=== PATIENT | male | born 1950 | race Caucasian/White ===

== ENCOUNTER 2020-03-21 09:57 | Outpatient (REF) | payer BC, SELFPAY ==
--- NOTE | 2020-03-21 | US_ITS ---
EXAMINATION: US THYROID CLINICAL INFORMATION: Goiter. COMPARISON: None TECHNIQUE: Linear transducer varghese-scale and color Doppler examination with attention to the region of the thyroid. FINDINGS: SIZE: Measurements of the thyroid lobes and nodules are given in sagittal, anteroposterior and transverse dimensions respectively. Right Thyroid Lobe: 5.3 x 1.9 x 2.1 cm, volume 10.8 mL. Parenchyma: The gland echotexture is homogeneous. Thyroid vascularity is normal. Left Thyroid Lobe: 4.3 x 1.7 x 1.9 cm, volume 7.4 mL. Parenchyma: The gland echotexture is homogeneous. Thyroid vascularity is normal. Isthmus: 0.5 cm in maximum AP dimension. RIGHT THYROID LOBE: There are 2 nodules seen. 1. Location: Mid. Size: 0.6 x 0.3 x 0.5 cm. Nodule characteristics: Hypoechoic and heterogeneous, smooth margin, no calcification and positive intranodular flow. 2. Location: Mid. Size: 0.3 x 0.2 x 0.2 cm. Nodule characteristics: Hypoechoic and cystic, smooth margin, no calcification and no intranodular flow. ISTHMUS: No nodules. LEFT THYROID LOBE: No nodules. NODES: No lymphadenopathy is seen in the tissue surrounding the thyroid gland. IMPRESSION: Slightly enlarged thyroid gland. Two small right thyroid nodules.
== END 2020-03-21 09:58 | disposition home or self-care (01) ==
LOC: HO.HMGCX 09:57
PROVIDERS: PCP Internal Medicine; Visit Provider Internal Medicine
DX: E04.9 Nontoxic goiter, unspecified (principal)
CPT/HCPCS: 76536

== ENCOUNTER 2020-04-05 10:44 | Outpatient (REF) | payer BC, SELFPAY ==
[2020-04-05 14:50] LABS: Blood Urea Nitrogen 16 mg/dL (9-16); Estimated Glomerular Filt Rate > 60
== END 2020-04-05 10:45 | disposition home or self-care (01) ==
LOC: HO.HMGCLDS 10:44
PROVIDERS: PCP Internal Medicine; Visit Provider Radiology Diagnostic Radiology
DX: I70.613 Atherosclerosis of nonbiological bypass graft(s) of the extremities with intermittent claudication, bilateral legs (principal)
CPT/HCPCS: 82565; 84520

== ENCOUNTER → 2020-04-26 07:36 | Outpatient (BNVA) | payer BC, SELFPAY | PROVIDERS: PCP Internal Medicine; Referring Provider Internal Medicine; Visit Provider Internal Medicine | DX: Z13.89 Encounter for screening for other disorder (principal) ==

== ENCOUNTER 2020-05-08 09:39 | Outpatient (REF) | payer MEDICARE, SELFPAY ==
[2020-05-08 11:24] LABS: Estimated Average Glucose 163 mg/dL; Hemoglobin A1c % 7.3 %
[2020-05-08 11:40] LABS: Alanine Aminotransferase 18 U/L (0-40); Albumin Level 4.4 g/dL (3.5-5.0); Alkaline Phosphatase 53 U/L (39-117); Anion Gap 13 (12-20); Aspartate Amino Transferase 14 U/L (5-37); Bilirubin Total 0.4 mg/dL (0.0-1.0); Blood Urea Nitrogen 13 mg/dL (9-16); Calcium 9.1 mg/dL (8.4-10.2); Carbon Dioxide 24 mmol/L (22-29); Chloride 104 mmol/L (96-108); Estimated Glomerular Filt Rate > 60; Glucose Random 254 mg/dL (60-115); Potassium 4.4 mmol/l (3.3-5.1); Sodium 137 mmol/L (135-145); Total Protein 6.9 g/dL (6.5-8.0)
== END 2020-05-08 09:40 | disposition home or self-care (01) ==
LOC: HO.HMGCX 09:39
PROVIDERS: PCP Internal Medicine; Visit Provider Internal Medicine
DX: E11.65 Type 2 diabetes mellitus with hyperglycemia (principal); E55.9 Vitamin D deficiency, unspecified; E04.9 Nontoxic goiter, unspecified; Z79.4 Long term (current) use of insulin
CPT/HCPCS: 80053; 82306; 83036

== ENCOUNTER 2020-05-19 10:10 | Outpatient (REF) | payer MEDICARE, SELFPAY ==
--- NOTE | 2020-05-19 10:21 | XR_ITS ---
EXAMINATION: XR CHEST CLINICAL INFORMATION: Cough. COMPARISON: Chest 04/16/2015 TECHNIQUE: 2 views of the chest were obtained. FINDINGS: No significant abnormality is noted involving the heart, lungs, mediastinum, bony thorax or soft tissues. XR/XR chest 2V IMPRESSION: Unremarkable chest exam.
== END 2020-05-19 10:11 | disposition home or self-care (01) ==
LOC: HO.HMGCLDS 10:10
PROVIDERS: PCP Internal Medicine; Visit Provider Internal Medicine
DX: R05 Cough (principal)
CPT/HCPCS: 71046

== ENCOUNTER 2020-08-31 20:02 | Emergency (ER) | payer MEDICARE, SELFPAY ==
--- NOTE | ~2020-08-31 | CT_ITS ---
EXAMINATION: CT ABDOMEN AND PELVIS WITH CONTRAST CLINICAL INFORMATION: Left lower quadrant pain. Status post aortofemoral bypass surgery. COMPARISON: CTA of the abdomen pelvis 04/09/2016. TECHNIQUE: Multidetector volumetric images were obtained from the superior aspect of the liver through the pubic symphysis following administration 85 mL of Omnipaque 350 intravenous contrast. Sagittal and coronal reformatted images were obtained on the technologist's workstation. Oral contrast: No This CT examination was performed using dose optimization techniques as appropriate, variously including the following: *Automated exposure control *Adjustment of mA and/or kV according to patient size (this includes techniques or standardized protocols for targeted exams where dose is matched to indication/reason for exam; i.e. extremities or head) *Use of iterative reconstruction technique DLP: 811 mGy-cm FINDINGS: LUNG BASES: The visualized lung bases are unremarkable. LIVER, GALLBLADDER, AND BILIARY TREE: The liver is normal in size, shape, and attenuation. No focal hepatic lesion or biliary ductal dilatation is present. There are a few small calcified gallstones within the gallbladder. No edema around the gallbladder or bile duct dilatation. PANCREAS: Multiple coarse calcifications within the pancreas. Dilatation of the pancreatic duct to diameter of 5 mm. Changes consistent with chronic pancreatitis. The pancreas is atrophic. There is no inflammation. There is no mass. SPLEEN: Unremarkable. ADRENAL GLANDS: Unremarkable. KIDNEYS AND URETERS: Mild hydronephrosis of left renal collecting system and proximal ureter to about the mid pelvis as the ureter crosses the iliopsoas and iliac vessels. The distal ureter is decompressed. No hydronephrosis of the right collecting system. There is no renal or ureteral calculi. Normal enhancement of the cortex of both kidneys. BLADDER: Unremarkable. GASTROINTESTINAL TRACT: The small and large bowel are unremarkable. The appendix is unremarkable. ABDOMINAL WALL: No ventral wall hernia. Midline surgical incision intact. No inflammation or fluid collections of the abdominal wall. LYMPH NODES: Normal. VASCULAR: Status post aortic bifemoral bypass graft. There is enhancement of the graft with no thrombus or occlusion. There is fluid and edema around the graft, greatest on the left, from the level of the aorta through the pelvis. There are multiple air collections in the fluid collection adjacent to the graft anastomosis in the left groin consistent with a abscess, axial image 85/93., Coronal image 40 and sagittal image 48. Measures about 3 cm in diameter. No air is present within the fluid in the right groin. PELVIC VISCERA: Unremarkable. OSSEOUS STRUCTURES: Multilevel degenerative spondylosis spine. CT/CT abdomen pelvis w con IMPRESSION: 1. Status post aorto bilateral femoral bypass graft. Fluid tracks around the aorta and the bypass graft on the left through the pelvis and into the groin. At the anastomotic site in the left groin there are air collections in the fluid consistent with a small abscess the bilateral grafts are patent demonstrating normal enhancement. 2. Mild hydronephrosis of left kidney with point of obstruction of the ureter as it passes around the left iliac graft. 3. Cholelithiasis. 4. Old changes of chronic pancreatitis. No acute abnormality of the pancreas. This critical result was discussed with Dr. Segundo on 08/31/2020, 11:45 PM and it was ascertained that the content and urgency of the report was understood at the time of direct communication.
[2020-08-31 20:34] VITALS: BP 164/78; BP 167/64; PULSE 69; RESP 20; TEMP 36.7; O2SAT 100; O2SAT 99; BMI 33.0
--- NOTE | 2020-08-31 20:47 | ECG_ITS ---
Test Reason : CHEST PAIN Blood Pressure : / mmHG Vent. Rate : 070 BPM Atrial Rate : 070 BPM P-R Int : 142 ms QRS Dur : 086 ms QT Int : 428 ms P-R-T Axes : 073 037 072 degrees QTc Int : 462 ms Sinus rhythm with occasional Premature ventricular complexes Otherwise normal ECG When compared with ECG of 17-APR-2015 11:21, Premature ventricular complexes are now Present Referred By: Generic ED Physician Electronically Signed By:YOU HOLLOWAY MD
--- NOTE | 2020-08-31 21:13 | ED.ABDPAIN ---
HPI - Abdominal Pain General Chief Complaint: Abdominal Pain Stated Complaint: chest pressure abd pain Time Seen by Provider: 08/31/20 21:13 Source: patient Mode of arrival: EMS Limitations: no limitations History of Present Illness HPI narrative: Patient with history of diabetes hypertension peripheral vascular disease status post aorto bi femoral bypass on 08/08 since then complaining of increased weakness , poor oral intake and lower abdominal pains patient on the left side. No fever no shortness of breath no chest pain does feel weak especially more for last 3 days patient also been constipated. No fever no chills no cough MD elicited complaint: abdominal pain Related Data Home Medications Medication Instructions Recorded Confirmed amlodipine 10 mg tablet 10 mg PO DAILY 04/19/20 07/10/20 aspirin 81 mg tablet,delayed 81 mg PO DAILY 04/19/20 07/10/20 release atorvastatin 20 mg tablet 20 mg PO DAILY 04/26/20 07/10/20 Previous Rx's Medication Instructions Recorded insulin syringe-needle U-100 1 mL #100 ea 03/09/20 27 gauge x 1/2 blood-glucose meter,continuous #1 ea 03/22/20 blood-glucose sensor #3 ea 03/22/20 blood-glucose transmitter #1 ea 03/22/20 insulin lispro 100 unit/mL 10 unit SUBCUT TID 30 Days #9 ml 04/11/20 subcutaneous cartridge blood sugar diagnostic #100 ea 04/26/20 blood-glucose meter #1 ea 04/26/20 semaglutide See Rx Instructions SUBCUT QWEEK 04/26/20 30 Days #1.5 ml tadalafil 20 mg tablet 20 mg PO DAILY PRN #30 tab 05/17/20 omeprazole 20 mg capsule,delayed 20 mg PO DAILY #90 cap 05/19/20 release tiotropium bromide 2.5 2 inh INHALATION QAM #4 g 05/19/20 mcg/actuation mist for inhalation olmesartan 40 mg tablet 40 mg PO DAILY #90 tab 06/13/20 tamsulosin 0.4 mg capsule 0.4 mg PO DAILY #90 cap 06/19/20 cilostazol 100 mg tablet 100 mg PO BID #180 tab 07/03/20 nystatin 100,000 unit/gram topical 1 appl TOPICAL BID #60 g 07/10/20 powder olmesartan 40 mg-amlodipine 10 1 tab PO DAILY #30 tab 07/10/20 mg-hydrochlorothiazide 25 mg tablet olmesartan 40 1 tab PO DAILY #30 tab 07/10/20 mg-hydrochlorothiazide 25 mg tablet insulin glargine U-300 conc 300 80 unit SUBCUT DAILY #12 ml 07/14/20 unit/mL (3 mL) subcutaneous pen metformin 1,000 mg tablet 1,000 mg PO BID 90 Days #180 tab 07/17/20 ondansetron HCl 4 mg tablet 4 mg PO Q8H PRN #30 tab 08/30/20 Allergies Allergy/AdvReac Type Severity Reaction Status Date / Time No Known Allergies Allergy Unknown UNKNOWN Verified 08/31/20 20:42 Review of Systems Review of Systems Constitutional : No Weight loss, No Fever, No Chills ENT/Mouth : No sore throat, No Rhinorrhea Eyes: No Eye Pain, No Swelling Cardiovascular : No Chest Pain, no palpitations Respiratory : No Cough, No Sputum, no shortness of breath Gastrointestinal : no Nausea, No Vomiting, No Diarrhea, + abdominal Pain, no black stools Genitourinary : No Dysuria, No Urinary Frequency Musculoskeletal : No joint pain, No Myalgias, No Joint Swelling Skin : No Skin Lesions, No rash Neuro : + Weakness, No Numbness, No Dizziness, No Headache Psych : No Anxiety/Panic, No Depression Heme/Lymph: No Bruising, No Lymphadenopathy Endocrine : No Polyuria, No Polydipsia All other systems reviewed and are negative Physical Exam Vital Signs: Vital Signs: Last Vital Signs Temp 97.8 F 09/01/20 02:23 Pulse 72 09/01/20 02:23 Resp 16 09/01/20 02:23 BP 142/61 H 09/01/20 02:23 Pulse Ox 97 09/01/20 02:23 Body Mass Index 33.0 Appearance: Alert. Oriented X3. No acute distress. Eyes: Pupils equal, round and reactive to light. Pallor+ ENT: Pharynx normal. Neck: Normal inspection. Neck supple. CVS: Normal heart rate and rhythm. Pulses normal. Respiratory: No respiratory distress. Breath sounds normal. Abdomen: Soft mild deep tenderness left lower quadrant no rebound tenderness or guarding Bowel sounds are present, no mass palpable, no CVA tenderness surgical scar healthy Skin: Skin warm and dry. Normal skin color. Normal skin turgor. Extremities: No lower extremity edema. Good peripheral pulses no calf tenderness Neuro: Oriented X 3. No motor deficit. No sensory deficit. MDM - Abdominal Pain MDM Narrative Medical decision making narrative: Patient status post aortoiliac femoral bypass on 08/08/20 since then complaining of not feeling good diffuse lower abdominal pain more on the left side workup showed normal to leukocytes normal lactic acid per CT scan with contrast showed patent iliac graft with fluid collection about 3 cm with multiple air collection adjacent to the graft anastomosis in left groin consistent with an abscess , about 3 cm in diameter. Patient has slight left hydronephrosis also. Case discussed with vascular surgeon Dr. Metzger advised transfer to [facility] for further evaluation as patient has surgery done there. Case discussed with Dr. todd at [facility] accepted the patient for transfer. Patient received IV Vanco 1 g and Zosyn 3.375 g for prophylactic coverage Differential Diagnosis Differential diagnosis: Likely abdominal pain and diverticulitis Medical Records Attestation: I reviewed the patient's medical records. Lab Data Attestation: I reviewed the patient's lab results. Result diagrams: 08/31/20 21:22 08/31/20 21:22 Labs: Lab Results 08/31/20 08/31/20 08/31/20 Range/Units 21:22 21:22 21:22 WBC 8.9 (4.8-10.8) X10*3/uL RBC 3.25 L (4.60-5.80) X10*6/uL Hgb 9.4 L (14.0-18.0) g/dl Hct 27.7 L (42-52) % MCV 85.2 (80-98) fL MCH 28.9 (27.0-33.0) pg MCHC 33.9 (31.0-36.0) g/dl RDW 13.5 (11.0-16.0) % Plt Count 323 (160-400) X10*3/uL MPV 10.6 (9.4-12.4) fL Immature Gran % (Auto) 0.4 (0.0-0.4) % Neut % (Auto) 56.5 (45-73) % Lymph % (Auto) 32.2 (20-40) % Bacon % (Auto) 7.5 (2-11) % Eos % (Auto) 2.6 (0-4) % Baso % (Auto) 0.8 (0-2) % Lymph # (Auto) 2.9 (1.2-4.9) X10*3/uL Bacon # (Auto) 0.7 (0.1-1.2) X10*3/uL Eos # (Auto) 0.2 (0.0-0.4) X10*3/uL Baso # (Auto) 0.1 (0.0-0.2) X10*3/uL Abs Immat Gran (auto) 0.04 H (0.00-0.03) X10*3/uL Absolute Neuts (auto) 5.0 (2.0-8.3) X10*3/uL Absolute Nucleated RBC 0.000 (0.0-0.012) X10*3/uL Nucleated RBC % (auto) 0.0 (0.0-0.2) /100WBC PT 14.1 H (10.8-13.0) SEC INR 1.2 H (0.9-1.1) Sodium (135-145) mmol/L Potassium (3.3-5.1) mmol/L Chloride (96-108) mmol/L Carbon Dioxide (22-29) mmol/L Anion Gap (12-20) BUN (9-16) mg/dL Creatinine (0.5-1.4) mg/dL Estim Creat Clear Calc Estimated GFR Random Glucose (60-115) mg/dL Lactic Acid (0.5-2.0) mmol/L Calcium (8.4-10.2) mg/dL Total Bilirubin (0.0-1.0) mg/dL Direct Bilirubin (0.0-0.5) mg/dL AST (5-37) U/L ALT (0-40) U/L Alkaline Phosphatase (39-117) U/L Troponin I High Sens (<3.5-35.0) ng/L B-Natriuretic Peptide 201 H (<100) pg/mL Total Protein (6.5-8.0) g/dL Albumin (3.5-5.0) g/dL Urine Color Urine Appearance Urine pH (5.0-8.0) Ur Specific Ackerman (1.005-1.025) Urine Protein (NEG-TRACE) MG/DL Urine Glucose (UA) (NEG) MG/DL Urine Ketones (NEG) MG/DL Urine Blood (NEG) Urine Nitrite (NEG) Ur Leukocyte Esterase (NEG) COVID-19 (SERINA) (Negative) COVID-19 Clin Com 08/31/20 08/31/20 08/31/20 Range/Units 21:22 21:22 21:22 WBC (4.8-10.8) X10*3/uL RBC (4.60-5.80) X10*6/uL Hgb (14.0-18.0) g/dl Hct (42-52) % MCV (80-98) fL MCH (27.0-33.0) pg MCHC (31.0-36.0) g/dl RDW (11.0-16.0) % Plt Count (160-400) X10*3/uL MPV (9.4-12.4) fL Immature Gran % (Auto) (0.0-0.4) % Neut % (Auto) (45-73) % Lymph % (Auto) (20-40) % Bacon % (Auto) (2-11) % Eos % (Auto) (0-4) % Baso % (Auto) (0-2) % Lymph # (Auto) (1.2-4.9) X10*3/uL Bacon # (Auto) (0.1-1.2) X10*3/uL Eos # (Auto) (0.0-0.4) X10*3/uL Baso # (Auto) (0.0-0.2) X10*3/uL Abs Immat Gran (auto) (0.00-0.03) X10*3/uL Absolute Neuts (auto) (2.0-8.3) X10*3/uL Absolute Nucleated RBC (0.0-0.012) X10*3/uL Nucleated RBC % (auto) (0.0-0.2) /100WBC PT (10.8-13.0) SEC INR (0.9-1.1) Sodium 133 L (135-145) mmol/L Potassium 4.2 (3.3-5.1) mmol/L Chloride 102 (96-108) mmol/L Carbon Dioxide 22 (22-29) mmol/L Anion Gap 13 (12-20) BUN 10 (9-16) mg/dL Creatinine 0.95 (0.5-1.4) mg/dL Estim Creat Clear Calc 86.2 Estimated GFR > 60 Random Glucose 256 H (60-115) mg/dL Lactic Acid 1.1 (0.5-2.0) mmol/L Calcium 8.5 D (8.4-10.2) mg/dL Total Bilirubin 0.4 (0.0-1.0) mg/dL Direct Bilirubin 0.3 (0.0-0.5) mg/dL AST 13 (5-37) U/L ALT 16 (0-40) U/L Alkaline Phosphatase 83 D (39-117) U/L Troponin I High Sens 30.0 (<3.5-35.0) ng/L B-Natriuretic Peptide (<100) pg/mL Total Protein 6.4 L (6.5-8.0) g/dL Albumin 3.6 (3.5-5.0) g/dL Urine Color Urine Appearance Urine pH (5.0-8.0) Ur Specific Ackerman (1.005-1.025) Urine Protein (NEG-TRACE) MG/DL Urine Glucose (UA) (NEG) MG/DL Urine Ketones (NEG) MG/DL Urine Blood (NEG) Urine Nitrite (NEG) Ur Leukocyte Esterase (NEG) COVID-19 (SERINA) (Negative) COVID-19 Clin Com 08/31/20 08/31/20 08/31/20 Range/Units 21:22 21:59 21:59 WBC (4.8-10.8) X10*3/uL RBC (4.60-5.80) X10*6/uL Hgb (14.0-18.0) g/dl Hct (42-52) % MCV (80-98) fL MCH (27.0-33.0) pg MCHC (31.0-36.0) g/dl RDW (11.0-16.0) % Plt Count (160-400) X10*3/uL MPV (9.4-12.4) fL Immature Gran % (Auto) (0.0-0.4) % Neut % (Auto) (45-73) % Lymph % (Auto) (20-40) % Bacon % (Auto) (2-11) % Eos % (Auto) (0-4) % Baso % (Auto) (0-2) % Lymph # (Auto) (1.2-4.9) X10*3/uL Bacon # (Auto) (0.1-1.2) X10*3/uL Eos # (Auto) (0.0-0.4) X10*3/uL Baso # (Auto) (0.0-0.2) X10*3/uL Abs Immat Gran (auto) (0.00-0.03) X10*3/uL Absolute Neuts (auto) (2.0-8.3) X10*3/uL Absolute Nucleated RBC (0.0-0.012) X10*3/uL Nucleated RBC % (auto) (0.0-0.2) /100WBC PT (10.8-13.0) SEC INR (0.9-1.1) Sodium (135-145) mmol/L Potassium (3.3-5.1) mmol/L Chloride (96-108) mmol/L Carbon Dioxide (22-29) mmol/L Anion Gap (12-20) BUN (9-16) mg/dL Creatinine (0.5-1.4) mg/dL Estim Creat Clear Calc Estimated GFR Random Glucose (60-115) mg/dL Lactic Acid (0.5-2.0) mmol/L Calcium (8.4-10.2) mg/dL Total Bilirubin (0.0-1.0) mg/dL Direct Bilirubin (0.0-0.5) mg/dL AST (5-37) U/L ALT (0-40) U/L Alkaline Phosphatase (39-117) U/L Troponin I High Sens (<3.5-35.0) ng/L B-Natriuretic Peptide (<100) pg/mL Total Protein (6.5-8.0) g/dL Albumin (3.5-5.0) g/dL Urine Color YELLOW Urine Appearance CLEAR Urine pH 7.5 (5.0-8.0) Ur Specific Ackerman 1.020 (1.005-1.025) Urine Protein NEG (NEG-TRACE) MG/DL Urine Glucose (UA) 100 H (NEG) MG/DL Urine Ketones 15 (NEG) MG/DL Urine Blood NEG (NEG) Urine Nitrite NEG (NEG) Ur Leukocyte Esterase NEG (NEG) COVID-19 (SERINA) Negative Cancelled (Negative) COVID-19 Clin Com See Note Cancelled Imaging Data CT scan - abdomen: Attestation: I personally reviewed and interpreted this imaging study as follows: Radiologist's impression: [facility] [place] [id number] Scan ReportSigned Patient: Caesar Flower JMR#: [id number]: 1950cct:[id number]/Sex: 69 / MADM Date: 08/31/20Loc: HO.EDAttending Dr: Ordering Physician: Marcin Bhakta MD Date of Service: 08/31/20 Procedure(s): CT abdomen pelvis w con Accession Number(s): [id number] cc: Marcin Bhakta MD~ EXAMINATION: CT ABDOMEN AND PELVIS WITH CONTRAST CLINICAL INFORMATION: Left lower quadrant pain. Status post aortofemoral bypass surgery. COMPARISON: CTA of the abdomen pelvis 04/09/2016. TECHNIQUE: Multidetector volumetric images were obtained from the superior aspect of the liver through the pubic symphysis following administration 85 mL of Omnipaque 350 intravenous contrast. Sagittal and coronal reformatted images were obtained on the technologist's workstation. Oral contrast: No This CT examination was performed using dose optimization techniques as appropriate, variously including the following: *Automated exposure control *Adjustment of mA and/or kV according to patient size (this includes techniques or standardized protocols for targeted exams where dose is matched to indication/reason for exam; i.e. extremities or head) *Use of iterative reconstruction technique DLP: 811 mGy-cm FINDINGS: LUNG BASES: The visualized lung bases are unremarkable. LIVER, GALLBLADDER, AND BILIARY TREE: The liver is normal in size, shape, and attenuation. No focal hepatic lesion or biliary ductal dilatation is present. There are a few small calcified gallstones within the gallbladder. No edema around the gallbladder or bile duct dilatation. PANCREAS: Multiple coarse calcifications within the pancreas. Dilatation of the pancreatic duct to diameter of 5 mm. Changes consistent with chronic pancreatitis. The pancreas is atrophic. There is no inflammation. There is no mass. SPLEEN: Unremarkable. ADRENAL GLANDS: Unremarkable. KIDNEYS AND URETERS: Mild hydronephrosis of left renal collecting system and proximal ureter to about the mid pelvis as the ureter crosses the iliopsoas and iliac vessels. The distal ureter is decompressed. No hydronephrosis of the right collecting system. There is no renal or ureteral calculi. Normal enhancement of the cortex of both kidneys. BLADDER: Unremarkable. GASTROINTESTINAL TRACT: The small and large bowel are unremarkable. The appendix is unremarkable. ABDOMINAL WALL: No ventral wall hernia. Midline surgical incision intact. No inflammation or fluid collections of the abdominal wall. LYMPH NODES: Normal. VASCULAR: Status post aortic bifemoral bypass graft. There is enhancement of the graft with no thrombus or occlusion. There is fluid and edema around the graft, greatest on the left, from the level of the aorta through the pelvis. There are multiple air collections in the fluid collection adjacent to the graft anastomosis in the left groin consistent with a abscess, axial image 85/93., Coronal image 40 and sagittal image 48. Measures about 3 cm in diameter. No air is present within the fluid in the right groin. PELVIC VISCERA: Unremarkable. OSSEOUS STRUCTURES: Multilevel degenerative spondylosis spine. CT/CT abdomen pelvis w con IMPRESSION: 1. Status post aorto bilateral femoral bypass graft. Fluid tracks around the aorta and the bypass graft on the left through the pelvis and into the groin. At the anastomotic site in the left groin there are air collections in the fluid consistent with a small abscess the bilateral grafts are patent demonstrating normal enhancement. 2. Mild hydronephrosis of left kidney with point of obstruction of the ureter as it passes around the left iliac graft. 3. Cholelithiasis. 4. Old changes of chronic pancreatitis. No acute abnormality of the pancreas. This critical result was discussed with Dr. Segundo on 08/31/2020, 11:45 PM and it was ascertained that the content and urgency of the report was understood at the time of direct communication. Dictated By:AMINTA BYRNE MDSigned By:<Electronically signed by AMINTA BYRNE MD in OV> ECG Data Attestation: I personally reviewed and interpreted this ECG as follows: Interpretation: Normal sinus rhythm heart rate 66 beats per minute normal intervals normal axis no acute ST T wave changes impression normal EKG Discharge Plan Discharge Clinical Impression: Abscess after procedure Abdominal pain Qualifiers: Abdominal location: left lower quadrant Qualified Code(s): R10.32 - Left lower quadrant pain Patient Disposition: Xfer Acute Care Hospital Transfer Details: [place] [address] room 4026 Prescriptions: No Action (DME) insulin syringe-needle U-100 [BD Insulin Syringe] 1 mL 27 gauge x 1/2 syringe See Rx Instructions .ROUTE .MEDSUPPLY Qty: 100 RF: 0 (DME) Dexcom G6 Sensor Device See Rx Instructions .ROUTE .MEDSUPPLY Qty: 3 RF: 11 (DME) Dexcom G6 Transmitter Device See Rx Instructions .ROUTE .MEDSUPPLY Qty: 1 RF: 11 (DME) Dexcom G6 Principal Systems Architect Misc See Rx Instructions .ROUTE .MEDSUPPLY Qty: 1 RF: 0 Humalog U-100 Insulin 100 unit/mL cartridge 10 unit subcut TID 30 Days Qty: 9 RF: 4 amlodipine 10 mg tablet 10 mg PO DAILY RF: 0 aspirin [Adult Aspirin Regimen] 81 mg tablet,delayed release (DR/EC) 81 mg PO DAILY RF: 0 olmesartan 40 mg tablet 40 mg PO DAILY Qty: 90 RF: 3 tamsulosin 0.4 mg capsule 0.4 mg PO DAILY Qty: 90 RF: 3 cilostazol 100 mg tablet 100 mg PO BID Qty: 180 RF: 3 Toujeo Max U-300 SoloStar 300 unit/mL (3 mL) insulin pen 80 unit subcut DAILY Qty: 12 RF: 5 metformin 1,000 mg tablet 1,000 mg PO BID 90 Days Qty: 180 RF: 0 ondansetron HCl [Zofran] 4 mg tablet 4 mg PO Q8H PRN (Reason: nausea and vomiting) Qty: 30 RF: 0 tadalafil [Cialis] 20 mg tablet 20 mg PO DAILY PRN (Reason: sexual activity) Qty: 30 RF: 4 qvostcmfrq-xrlcdfqaq-axwriopdc 40-10-25 mg tablet 1 tab PO DAILY Qty: 30 RF: 5 olmesartan-hydrochlorothiazide 40-25 mg tablet 1 tab PO DAILY Qty: 30 RF: 3 nystatin 100,000 unit/gram powder 1 appl topical BID Qty: 60 RF: 2 omeprazole 20 mg capsule,delayed release(DR/EC) 20 mg PO DAILY Qty: 90 RF: 3 Spiriva Respimat 2.5 mcg/actuation mist 2 inh inhalation QAM Qty: 4 RF: 6 (DME) FreeStyle Lite Strips Strip See Rx Instructions .ROUTE .MEDSUPPLY Qty: 100 RF: 11 (DME) blood-glucose meter [FreeStyle [place] Lite] Kit See Rx Instructions .ROUTE .MEDSUPPLY Qty: 1 RF: 0 Ozempic 0.25 mg or 0.5 mg(2 mg/1.5 mL) pen injector See Rx Instructions subcut QWEEK 30 Days Qty: 1.5 RF: 11 atorvastatin 20 mg tablet 20 mg PO DAILY RF: 0 Interventions: Acute Care Transfer Worksheet (ED) Last Done: 09/01/20 04:09 Discharge Date/Time: 09/01/20 04:10 COUNT INCLUDES THE [facility] Past Medical History Medical History BPH (benign prostatic hyperplasia) Cough Diabetic retinopathy Goiter HLD (hyperlipidemia) HTN (hypertension) PVD (peripheral vascular disease) T2DM (type 2 diabetes mellitus) Vitamin D deficiency Surgical History H/O ujfxw-ockvw-txwaudl bypass Hx of basal cell carcinoma excision Family History Family History Father Diabetes Mother Diabetes Leukemia Skin cancer Alzheimers disease Dementia Social History Social History Alcohol intake: never Smoking Status: Former smoker Packs Per Day: 3 Years Smoked: 20 Advance Directives: No Advance Directives Information Provided: Yes
[2020-08-31 21:40] LABS: MANUAL DIFF FLAG NO
[2020-08-31 21:43] LABS: Basophils Absolute Auto 0.1 X10*3/uL (0.0-0.2); Basophils Percent Auto 0.8 % (0-2); Eosinophils Absolute Auto 0.2 X10*3/uL (0.0-0.4); Eosinophils Percent Auto 2.6 % (0-4); Hematocrit 27.7 % (42-52); Hemoglobin 9.4 g/dl (14.0-18.0); Imm Gran Abs Auto 0.04 X10*3/uL (0.00-0.03); Imm Gran Pct Auto 0.4 % (0.0-0.4); Lymphocytes Absolute Auto 2.9 X10*3/uL (1.2-4.9); Lymphocytes Percent Auto 32.2 % (20-40); Mean Corpuscular HGB Conc 33.9 g/dl (31.0-36.0); Mean Corpuscular Hemoglobin 28.9 pg (27.0-33.0); Mean Corpuscular Volume 85.2 fL (80-98); Mean Platelet Volume 10.6 fL (9.4-12.4); Monocytes Absolute Auto 0.7 X10*3/uL (0.1-1.2); Monocytes Percent Auto 7.5 % (2-11); Neutrophils Percent Auto 56.5 % (45-73); Platelet Count 323 X10*3/uL (160-400); Red Blood Count 3.25 X10*6/uL (4.60-5.80); Red Cell Distribution Width 13.5 % (11.0-16.0); White Blood Count 8.9 X10*3/uL (4.8-10.8)
[2020-08-31] MEDS: 0.9 % Sodium Chloride 1,000 ML 999 ML IVCONT (21:51)
[2020-08-31 21:52] LABS: INTERNATIONAL NORM RATIO 1.2 (0.9-1.1); Prothrombin Time 14.1 SEC (10.8-13.0)
[2020-08-31 22:07] LABS: COVID-19 Test Negative (Negative); IDNOW Serial# 9DD0AD1C
[2020-08-31 22:12] LABS: Glucose Urine UA 100 MG/DL (NEG); Leukocyte Esterase Urine NEG (NEG); Nitrite Urine NEG (NEG); PH 7.5 (5.0-8.0); Urine Blood NEG (NEG); Urine Ketones 15 MG/DL (NEG); Urine Protein NEG (NEG-TRACE)
[2020-08-31 22:14] LABS: Appearance Urine CLEAR; Color Urine YELLOW
[2020-08-31 22:24] LABS: Lactic Acid 1.1 mmol/L (0.5-2.0)
[2020-08-31 22:27] LABS: Anion Gap 13 (12-20); Blood Urea Nitrogen 10 mg/dL (9-16); Calcium 8.5 mg/dL (8.4-10.2); Carbon Dioxide 22 mmol/L (22-29); Chloride 102 mmol/L (96-108); Creatinine Clr Calc Pharmacy 86.2; Estimated Glomerular Filt Rate > 60; Glucose Random 256 mg/dL (60-115); Potassium 4.2 mmol/L (3.3-5.1); Sodium 133 mmol/L (135-145)
[2020-08-31 22:32] LABS: B Type Natriuretic Peptide 201 pg/mL (<100)
[2020-08-31] MEDS: ondansetron HCL 4 MG/2 ML VIAL IVPUSH (22:40)
[2020-08-31] MEDS: Morphine Sulfate 4 MG/ML CARTRIDGE IVPUSH (22:54)
[2020-09-01] MEDS: Piperacillin Sodium/Tazobactam 3.375 GM in 0.9 % Sodium Chloride 50 ML IV (00:23)
[2020-09-01] MEDS: vancomycin HCL 1,000 MG in 0.9 % Sodium Chloride 250 ML 270 MG IV (01:35)
[2020-09-01] MEDS: Morphine Sulfate 4 MG/ML CARTRIDGE IVPUSH (01:46)
[2020-09-01 02:23] VITALS: BP 142/61; PULSE 72; RESP 16; TEMP 36.6; O2SAT 97
[2020-09-01 02:30] LABS: Alanine Aminotransferase 16 U/L (0-40); Albumin Level 3.6 g/dL (3.5-5.0); Alkaline Phosphatase 83 U/L (39-117); Aspartate Amino Transferase 13 U/L (5-37); Bilirubin Direct 0.3 mg/dL (0.0-0.5); Bilirubin Total 0.4 mg/dL (0.0-1.0); Total Protein 6.4 g/dL (6.5-8.0)
== END 2020-09-01 04:10 | disposition short-term general hospital (02) ==
PROVIDERS: Emergency Provider Internal Medicine
DX: T82.898A Other specified complication of vascular prosthetic devices, implants and grafts, initial encounter (principal); L02.214 Cutaneous abscess of groin; R10.32 Left lower quadrant pain; N13.30 Unspecified hydronephrosis; Z20.822 Contact with and (suspected) exposure to COVID-19; E11.9 Type 2 diabetes mellitus without complications; I10 Essential (primary) hypertension; Z79.82 Long term (current) use of aspirin; Z79.02 Long term (current) use of antithrombotics/antiplatelets; Z95.828 Presence of other vascular implants and grafts
CPT/HCPCS: 36415; 74177; 80048; 80076; 81003; 83605; 83880; 84484; 85025; 85610; 87040; 87635; 93005; 96361; 96365; 96368; 96374; 96375; 99285; J2270; J2405; J2543; J3370; Q9967

== ENCOUNTER 2020-09-14 11:18 | Emergency (ER) | payer MEDICARE, SELFPAY ==
--- NOTE | 2020-09-14 | ECG_ITS ---
Test Reason : NAUSEA Blood Pressure : / mmHG Vent. Rate : 082 BPM Atrial Rate : 082 BPM P-R Int : 140 ms QRS Dur : 084 ms QT Int : 378 ms P-R-T Axes : 072 036 068 degrees QTc Int : 441 ms Sinus rhythm with occasional Premature ventricular complexes Low voltage QRS Borderline ECG When compared with ECG of 31-AUG-2020 20:59, No significant change was found Referred By: Generic ED Physician Electronically Signed By:GIANNI MURRELL
--- NOTE | ~2020-09-14 | CT_ITS ---
EXAMINATION: CT ABDOMEN AND PELVIS WITH CONTRAST CLINICAL INFORMATION: Aortobifem bypass surgery at outside facility. Left groin abscess with subsequent drainage at outside facility. Patient notes groin pain and recurrent symptoms. COMPARISON: CT abdomen and pelvis with contrast 08/31/2020. TECHNIQUE: Multidetector volumetric images were obtained from the superior aspect of the liver through the pubic symphysis following administration 85 mL of Omnipaque 350 intravenous contrast. Sagittal and coronal reformatted images were obtained on the technologist's workstation. Oral contrast: No This CT examination was performed using dose optimization techniques as appropriate, variously including the following: *Automated exposure control *Adjustment of mA and/or kV according to patient size (this includes techniques or standardized protocols for targeted exams where dose is matched to indication/reason for exam; i.e. extremities or head) *Use of iterative reconstruction technique DLP: 817 mGy-cm FINDINGS: LUNG BASES: New small bibasilar effusions with bilateral posterior basilar atelectasis. LIVER, GALLBLADDER, AND BILIARY TREE: The liver is normal in size and smooth in contour and uniform in attenuation. Small intrahepatic bile ducts that are visible are stable. No interval intrahepatic ductal dilatation. Gallbladder is again distended to approximately 4.8 cm in caliber. There are at least 2 small dependent gallstones. No gallbladder wall thickening or pericholecystic inflammatory changes. The common duct is unremarkable. PANCREAS: The pancreas is atrophic and shows distention of the duct and multiple coarse parenchymal calcifications suggesting chronic pancreatitis, stable from prior exam. No interval peripancreatic inflammatory changes. SPLEEN: Unremarkable. ADRENAL GLANDS: Unremarkable. KIDNEYS AND URETERS: The kidneys enhance symmetrically. There is no hydronephrosis, hydroureter, or perinephric stranding. There are some renal sinus vascular calcifications. No definite calculi. BLADDER: There is gas at the bladder dome presumably from recent catheterization. Clinically correlate. No bladder calculus or focal wall thickening GASTROINTESTINAL TRACT: There is no bowel obstruction or inflammatory changes in the bowel. The appendix is normal. There is moderate stool throughout the colon. No rectal fecal impaction. No pneumatosis. No ascites. ABDOMINAL WALL: No interval ventral hernia. LYMPH NODES: No interval lymphadenopathy. VASCULAR: There is a patent infrarenal aortobifem graft again with perigraft fluid at the graft bifurcation and along the left side. The left-sided perigraft fluid is decreased from recent exam 08/31/2020. For example, current measurement at level of lumbosacral junction is around 2.8 x 3.8 cm compared with prior measurement 3.5 x 4.7 cm. The perigraft fluid at the left groin is stable. The gas bubbles have markedly decreased with only one gas bubble remaining. There is no new abscess or increasing fluid collection. Perigraft fluid at the right groin and extending into the right subcutaneous space is stable. There is no associated gas bubbles. PELVIC VISCERA: No additional findings. OSSEOUS STRUCTURES: No acute bony abnormality. There is interval thickening of the distal left iliopsoas muscle just lateral to recent drainage which may represent small muscle hematoma. Results called and discussed with Dr. Williamson in the emergency department at [address]/CT abdomen pelvis w con IMPRESSION: 1. Status post infrarenal aortobifemoral graft, patent. Left limb perigraft fluid decreased. Left groin perigraft fluid stable and gas bubbles decreased since prior CT 08/31/2020. Right groin perigraft fluid stable. No right gas bubbles. 2. Mild interval thickening of the distal left iliopsoas muscle just lateral to recent drainage which may represent small muscle hematoma. 3. Gas in urinary bladder without bladder wall thickening, possibly related to recent cauterization. Clinically correlate. Upper tracts unremarkable. 4. Gallstones. No gallbladder wall thickening or pericholecystic inflammatory changes.
--- NOTE | ~2020-09-14 | XR_ITS ---
EXAMINATION: XR CHEST CLINICAL INFORMATION: Shortness of breath. Assess for pneumonia COMPARISON: CT abdomen 08/31/2020, radiographs chest 05/19/2020. TECHNIQUE: Upright AP and lateral views of the chest are obtained. FINDINGS: There is a right-sided PICC with tip at distal superior vena cava. There are small bibasilar effusions better appreciated on lateral view. Patchy airspace opacities present posterior basal region, likely on left. There is also subsegmental atelectasis left lateral base and right posterior medial base. The heart is normal in size. The vascularity is normal. The hilar and mediastinal contours and bony structures are unremarkable. XR/XR chest 2V IMPRESSION: 1. Small patchy airspace opacity left base with bibasilar subsegmental atelectasis and small bibasilar effusions. 2. Heart size normal. Vascularity normal.
[2020-09-14 11:38] VITALS: BP 121/48; BP 189/92; PULSE 74; PULSE 85; RESP 18; TEMP 36.9; O2SAT 96; O2SAT 98; BMI 33.0
--- NOTE | 2020-09-14 12:48 | ED_ITS ---
HPI - General Adult General Chief complaint: Nausea/Vomiting/Diarrhea Stated complaint: NAUSEA AND VOMITING Time Seen by Provider: 09/14/20 12:12 Source: patient and family (, Christina) Mode of arrival: EMS Limitations: no limitations History of Present Illness HPI narrative: 70-year-old male who presents emergency department for evaluation of abdominal pain, chest pain, shortness of breath and weakness. The patient has a complicated past medical history. On August 08, 2020 the patient had a aortic bi-femoral bypass done at [facility]. This surgery was complicated by left groin infection on September 12, 2020 requiring readmission to [facility]. The patient had an abscess near his left groin vascular graft. He had an operation on 09/01/2020 for a washout of the groin and placement vancomycin beads and 2nd surgery on 09/05 for repeat washout remove of the vancomycin beads with the creation of a sartorius muscle flap coverage of the graft. The patient apparently developed kidney injury in response to the antibiotics, these were changed and his kidney function improved. The patient was released from [facility] on 09/12/2020 and is currently getting septa zone 2 g IV push q.8 hours. The patient states that since getting home he has been feeling very weak. The patient has not been able to eat since he has no appetite. He states he has had no bowel movement in 3 days. He has had constant nausea since being home. He states that every time he gets his IV push cefazolin he feels and ?bad ?. He states that during the injection feels like he is going to pass out and he develops a alcohol taste in his mouth. He he states that today at around 10:30 a.m. he developed a brief episode of chest heaviness that lasted seconds to minutes. He points to his sternum when asked to localize the pain. States that he felt short of breath with the chest heaviness. He states that the symptoms have resolved. He states that today he developed emesis x1 or 2 episodes in multiple episodes of dry heaves. He was not feeling well therefore he is brought to the emergency department by ambulance. The patient has been getting morphine 15 mg every 6 hours as needed for his abdominal pain but he states he has not taken this in 2-3 days. Related Data Home Medications Medication Instructions Recorded Confirmed amlodipine 10 mg tablet 10 mg PO DAILY 04/19/20 07/10/20 aspirin 81 mg tablet,delayed 81 mg PO DAILY 04/19/20 07/10/20 release atorvastatin 20 mg tablet 20 mg PO DAILY 04/26/20 07/10/20 Previous Rx's Medication Instructions Recorded insulin syringe-needle U-100 1 mL #100 ea 03/09/20 27 gauge x 1/2 blood-glucose meter,continuous #1 ea 03/22/20 blood-glucose sensor #3 ea 03/22/20 blood-glucose transmitter #1 ea 03/22/20 insulin lispro 100 unit/mL 10 unit SUBCUT TID 30 Days #9 ml 04/11/20 subcutaneous cartridge blood sugar diagnostic #100 ea 04/26/20 blood-glucose meter #1 ea 04/26/20 semaglutide See Rx Instructions SUBCUT QWEEK 04/26/20 30 Days #1.5 ml tadalafil 20 mg tablet 20 mg PO DAILY PRN #30 tab 05/17/20 omeprazole 20 mg capsule,delayed 20 mg PO DAILY #90 cap 05/19/20 release tiotropium bromide 2.5 2 inh INHALATION QAM #4 g 05/19/20 mcg/actuation mist for inhalation olmesartan 40 mg tablet 40 mg PO DAILY #90 tab 06/13/20 tamsulosin 0.4 mg capsule 0.4 mg PO DAILY #90 cap 06/19/20 cilostazol 100 mg tablet 100 mg PO BID #180 tab 07/03/20 nystatin 100,000 unit/gram topical 1 appl TOPICAL BID #60 g 07/10/20 powder olmesartan 40 mg-amlodipine 10 1 tab PO DAILY #30 tab 07/10/20 mg-hydrochlorothiazide 25 mg tablet olmesartan 40 1 tab PO DAILY #30 tab 07/10/20 mg-hydrochlorothiazide 25 mg tablet insulin glargine U-300 conc 300 80 unit SUBCUT DAILY #12 ml 07/14/20 unit/mL (3 mL) subcutaneous pen metformin 1,000 mg tablet 1,000 mg PO BID 90 Days #180 tab 07/17/20 ondansetron HCl 4 mg tablet 4 mg PO Q8H PRN 30 Days #30 tab 09/13/20 hydromorphone [Dilaudid] 2 mg PO Q4-6H PRN #20 tab 09/14/20 ondansetron 8 mg PO Q8H PRN 5 Days #30 ea 09/14/20 Allergies Allergy/AdvReac Type Severity Reaction Status Date / Time No Known Allergies Allergy Unknown UNKNOWN Verified 09/14/20 11:44 Review of Systems Review of Systems: Yes all other systems are reviewed and are negative [facility] Past Medical History Source: unable to obtain Medical History BPH (benign prostatic hyperplasia) Cough Diabetic retinopathy Goiter HLD (hyperlipidemia) HTN (hypertension) PVD (peripheral vascular disease) T2DM (type 2 diabetes mellitus) Vitamin D deficiency Surgical History H/O [id number] bypass Hx of basal cell carcinoma excision Family History Family History Father Diabetes Mother Diabetes Leukemia Skin cancer Alzheimers disease Dementia Social History Social History Alcohol intake: never Smoking Status: Former smoker Packs Per Day: 3 Years Smoked: 20 Advance Directives: No Advance Directives Information Provided: Yes Physical Exam Vital Signs: Vital Signs: Last Vital Signs Temp 98.5 F 09/14/20 11:38 Pulse 72 09/14/20 15:33 Resp 18 09/14/20 15:33 BP 138/57 L 09/14/20 15:33 Pulse Ox 96 09/14/20 15:33 Body Mass Index 33.0 Const: General: cooperative Orientation/consciousness: oriented to person and oriented to place Limitations: no limitations HENMT: Head: Yes normal to inspection, Yes normocephalic and Yes atraumatic Ears: external ears normal General nose exam: Normal external nose present Face and sinus: Yes normal facial exam Mouth: Normal oral and palatal mucosa present Throat: Yes posterior oropharynx normal Eyes: Periorbital: periorbital findings normal Eyelids: Yes eyelids normal Conjunctivae: conjunctivae normal Sclerae: sclerae normal Corneas: corneas normal Pupils: Equal, round and reactive pupils present Direct Ophthalmoscopy: normal light reflex Neck: Neck: Yes full ROM, Yes no lymphadenopathy, Yes no meningeal signs, Yes trachea midline and Yes supple Chest: Chest palpation & inspection: normal inspection of the chest and normal palpation of entire chest wall Resp: Effort & Inspection: normal respiratory effort and able to speak in complete sentences Auscultation: clear to auscultation bilaterally Cardio: Rate: regular rate Rhythm: regular rhythm Heart sounds: S1 normal heart sound present, S2 normal heart sound present and no murmurs GI: Inspection: Yes normal to inspection Palpation (GI): Soft to palpation, Tenderness to palpation present (GI) in the LLQ (Left groin dressing, not removed, tenderness ), in the RLQ (Moderate) and suprapubicly (Moderate), no guarding, not rigid and No hepatosplenomegaly present : General: Yes no CVA tenderness Back/Spine/Pelvis: Back: no CVA tenderness Cervical Spine: normal cervical lordosis Thoracic/Lumbar Spine: thoracic and lumbar spine normal to insp ection Skin: Lesions: no lesions Rashes: no rashes Wounds: no wounds Neuro: General: oriented to person, oriented to place and no meningeal signs Cranial nerves: Yes CN's II-XII intact bilaterally and Yes Equal, round and reactive pupils present Cognition (Neuro): normal cognition Motor exam (neuro): 5/5 motor strength present throughout Extrem: General: Yes normal to inspection and Yes full ROM Psych: Appearance: well kempt Mental Status: mental status grossly normal Speech and movement: Normal speech and movement present Affect: normal affect Attitude: cooperative Thought process: Normal thought process prese nt Thought content: Normal thought content present Course Course Course Narrative: 70-year-old male with a who presents emergency department for evaluation of chest pain, shortness of breath, nausea, vomiting and abdominal pain. The patient had a aortic by femoral bypass done at [facility] on August 08, 2020 complicated by an abscess of the left groin with washout surgery and vancomycin beads placed September 01, 2020 with repeat surgery on September 05, 2020 for repeat washout removal of the vancomycin beads. The patient also had a set aureus muscle flap created a 2nd surgery. Patient is continuing to get cefazolin 2 g IV q.8 hours which he believes is making ill. He presents today with chest pain, shortness of breath, nausea, vomiting and abdominal pain. Physical examination did reveal lower abdominal tenderness. Twelve EKG revealed no acute findings. I did order CBC, CMP, lactic acid, CRP, sedimentation rate, blood cultures x2, troponin, chest x-ray and CT scan of the abdomen pelvis with IV contrast. Patient's nausea was treated with Zofran 4 mg IV. He was also given Dilaudid 1 mg IV for his abdominal pain. He also be treated with normal saline IV x1 L 1651: The patient's laboratory evaluation did reveal anemia with an H&H is 7.9 and 24.6 with normal MCV of 89. Patient has similar anemia in the past with an H&H of 9 and 27 on August 31, 2020. Patient's CRP was not elevated, sedimentation rate was slightly elevated at 33. The patient's high sensitivity troponin was detectable but not elevated and with an unremarkable EKG I do not think the patient's chest pain was secondary to acute coronary syndrome. The CT scan of the patient's abdomen and pelvis did not reveal any obvious cause for the patient's symptoms, the left groin area is significantly improved compared to the previous CT. The patient did get some improvement with the IV Dilaudid. The patient is due for his next dose of cefazolin therefore was ordered to get Benadryl 25 mg IV and then cephazolin 2 g IV. Iron studies are pending. The patient will need to follow-up with his PCP to check these results. The patient will be discharged home and advised to follow-up with his surgical team for further treatment and evaluation. Medical Decision Making Lab Data Result diagrams: 09/14/20 14:25 09/14/20 13:33 Labs: Lab Results 09/14/20 09/14/20 09/14/20 Range/Units 13:33 13:33 14:25 WBC 7.2 (4.8-10.8) X10*3/uL RBC 2.76 L (4.60-5.80) X10*6/uL Hgb 7.9 L (14.0-18.0) g/dl Hct 24.6 L (42-52) % MCV 89.1 (80-98) fL MCH 28.6 (27.0-33.0) pg MCHC 32.1 (31.0-36.0) g/dl RDW 14.6 (11.0-16.0) % Plt Count 217 D (160-400) X10*3/uL MPV 10.2 (9.4-12.4) fL Immature Gran % (Auto) 0.6 H (0.0-0.4) % Neut % (Auto) 70.0 (45-73) % Lymph % (Auto) 18.4 L (20-40) % Bland % (Auto) 5.7 (2-11) % Eos % (Auto) 4.6 H (0-4) % Baso % (Auto) 0.7 (0-2) % Lymph # (Auto) 1.3 (1.2-4.9) X10*3/uL Bland # (Auto) 0.4 (0.1-1.2) X10*3/uL Eos # (Auto) 0.3 (0.0-0.4) X10*3/uL Baso # (Auto) 0.1 (0.0-0.2) X10*3/uL Abs Immat Gran (auto) 0.04 H (0.00-0.03) X10*3/uL Absolute Neuts (auto) 5.1 (2.0-8.3) X10*3/uL Absolute Nucleated RBC 0.000 (0.0-0.012) X10*3/uL Nucleated RBC % (auto) 0.0 (0.0-0.2) /100WBC ESR (0-15) MM/HR PT (10.8-13.0) SEC INR (0.9-1.1) APTT (24.1-38.0) SEC Sodium 139 (135-145) mmol/L Potassium 4.6 (3.3-5.1) mmol/L Chloride 108 (96-108) mmol/L Carbon Dioxide 21 L (22-29) mmol/L Anion Gap 15 (12-20) BUN 13 (9-16) mg/dL Creatinine 1.33 (0.5-1.4) mg/dL Estim Creat Clear Calc 60.7 Estimated GFR 53 Random Glucose 161 H D (60-115) mg/dL Lactic Acid (0.5-2.0) mmol/L Calcium 8.4 (8.4-10.2) mg/dL Iron 27 L (45-160) mcg/dL TIBC 186 L (228-428) mcg/dL % Saturation 15 (15-50) % Unsat Iron Binding 159 ug/dL Total Bilirubin 0.4 (0.0-1.0) mg/dL AST 11 (5-37) U/L ALT < 6 (0-40) U/L Alkaline Phosphatase 81 (39-117) U/L Troponin I High Sens 26.7 (<3.5-35.0) ng/L C-Reactive Protein 0.42 (< or = 0.50) mg/dL Total Protein 5.4 L (6.5-8.0) g/dL Albumin 2.9 L (3.5-5.0) g/dL Lipase < 4 L (8-78) U/L COVID-19 (SERINA) (Negative) COVID-19 Clin Com 09/14/20 09/14/20 09/14/20 Range/Units 14:25 14:25 14:25 WBC (4.8-10.8) X10*3/uL RBC (4.60-5.80) X10*6/uL Hgb (14.0-18.0) g/dl Hct (42-52) % MCV (80-98) fL MCH (27.0-33.0) pg MCHC (31.0-36.0) g/dl RDW (11.0-16.0) % Plt Count (160-400) X10*3/uL MPV (9.4-12.4) fL Immature Gran % (Auto) (0.0-0.4) % Neut % (Auto) (45-73) % Lymph % (Auto) (20-40) % Bland % (Auto) (2-11) % Eos % (Auto) (0-4) % Baso % (Auto) (0-2) % Lymph # (Auto) (1.2-4.9) X10*3/uL Bland # (Auto) (0.1-1.2) X10*3/uL Eos # (Auto) (0.0-0.4) X10*3/uL Baso # (Auto) (0.0-0.2) X10*3/uL Abs Immat Gran (auto) (0.00-0.03) X10*3/uL Absolute Neuts (auto) (2.0-8.3) X10*3/uL Absolute Nucleated RBC (0.0-0.012) X10*3/uL Nucleated RBC % (auto) (0.0-0.2) /100WBC ESR 33 H (0-15) MM/HR PT 14.9 H (10.8-13.0) SEC INR 1.3 H (0.9-1.1) APTT 39.8 H (24.1-38.0) SEC Sodium (135-145) mmol/L Potassium (3.3-5.1) mmol/L Chloride (96-108) mmol/L Carbon Dioxide (22-29) mmol/L Anion Gap (12-20) BUN (9-16) mg/dL Creatinine (0.5-1.4) mg/dL Estim Creat Clear Calc Estimated GFR Random Glucose (60-115) mg/dL Lactic Acid 0.8 (0.5-2.0) mmol/L Calcium (8.4-10.2) mg/dL Iron (45-160) mcg/dL TIBC (228-428) mcg/dL % Saturation (15-50) % Unsat Iron Binding ug/dL Total Bilirubin (0.0-1.0) mg/dL AST (5-37) U/L ALT (0-40) U/L Alkaline Phosphatase (39-117) U/L Troponin I High Sens (<3.5-35.0) ng/L C-Reactive Protein (< or = 0.50) mg/dL Total Protein (6.5-8.0) g/dL Albumin (3.5-5.0) g/dL Lipase (8-78) U/L COVID-19 ([facility]ERINA) (Negative) COVID-19 Clin Com 09/14/20 Range/Units 14:25 WBC (4.8-10.8) X10*3/uL RBC (4.60-5.80) X10*6/uL Hgb (14.0-18.0) g/dl Hct (42-52) % MCV (80-98) fL MCH (27.0-33.0) pg MCHC (31.0-36.0) g/dl RDW (11.0-16.0) % Plt Count (160-400) X10*3/uL MPV (9.4-12.4) fL Immature Gran % (Auto) (0.0-0.4) % Neut % (Auto) (45-73) % Lymph % (Auto) (20-40) % Bland % (Auto) (2-11) % Eos % (Auto) (0-4) % Baso % (Auto) (0-2) % Lymph # (Auto) (1.2-4.9) X10*3/uL Bland # (Auto) (0.1-1.2) X10*3/uL Eos # (Auto) (0.0-0.4) X10*3/uL Baso # (Auto) (0.0-0.2) X10*3/uL Abs Immat Gran (auto) (0.00-0.03) X10*3/uL Absolute Neuts (auto) (2.0-8.3) X10*3/uL Absolute Nucleated RBC (0.0-0.012) X10*3/uL Nucleated RBC % (auto) (0.0-0.2) /100WBC ESR (0-15) MM/HR PT (10.8-13.0) SEC INR (0.9-1.1) APTT (24.1-38.0) SEC Sodium (135-145) mmol/L Potassium (3.3-5.1) mmol/L Chloride (96-108) mmol/L Carbon Dioxide (22-29) mmol/L Anion Gap (12-20) BUN (9-16) mg/dL Creatinine (0.5-1.4) mg/dL Estim Creat Clear Calc Estimated GFR Random Glucose (60-115) mg/dL Lactic Acid (0.5-2.0) mmol/L Calcium (8.4-10.2) mg/dL Iron (45-160) mcg/dL TIBC (228-428) mcg/dL % Saturation (15-50) % Unsat Iron Binding ug/dL Total Bilirubin (0.0-1.0) mg/dL AST (5-37) U/L ALT (0-40) U/L Alkaline Phosphatase (39-117) U/L Troponin I High Sens (<3.5-35.0) ng/L C-Reactive Protein (< or = 0.50) mg/dL Total Protein (6.5-8.0) g/dL Albumin (3.5-5.0) g/dL Lipase (8-78) U/L COVID-19 ([facility]ERINA) Negative (Negative) COVID-19 Clin Com See Note ECG Data Interpretation: 1230: Normal sinus rhythm rate 82, normal WI, QRS and QTC intervals, occasional PVC, no T-wave abnormalities, no ST segment elevation or depression. This is a normal EKG Discharge Plan Discharge Clinical Impression: Abdominal pain Qualifiers: Abdominal location: generalized Qualified Code(s): R10.84 - Generalized abdominal pain Anemia Qualifiers: Anemia type: other cause Chest pain Qualifiers: Chest pain type: unspecified Qualified Code(s): R07.9 - Chest pain, unspecified Patient Disposition: Home, Self-Care Additional Instructions: Your laboratory evaluation revealed that you are anemic with an H&H of 7.9 and 24.6. You had a normal MCV, your iron studies are pending and you will need to check these with your doctor. Your doctor should follow your blood levels to make sure that they do not drop any further and that you do not require any transfusions. Your EKG was unremarkable. Your chest x-ray was unremarkable. We check your inflammatory markers an your CRP was normal in your sedimentation rate was only slightly elevated at 33. The CT scan of your abdomen pelvis with IV contrast revealed improvement of the abscess findings in the left groin area with no other significant changes. At this time I do not have a clear cause for your symptoms but I do not think that you need to be hospitalized. Take Benadryl 25 mg orally and extra-strength Tylenol 2 tabs orally one hour before you take your push does cephazolin to see if this reduces the amount of symptoms that you have. Your should slowly push this medicine over 5-10 minutes. Stop taking your morphine. Take Dilaudid 2 mg pills, 1 pill every 4-6 hours as needed for abdominal pain. This is a narcotic medication and causes sleepiness and constipation. This medication can also be addicting. If your concerned about addiction you can ask your pharmacist for less pills or not get the prescription filled. Take Zofran ODT 8 mg, 1 tablet dissolved in your mouth every 8 hours as needed for nausea and vomiting. Follow-up with your doctor in 2 days. Please return to the emergency department if your symptoms get worse or if you develop any symptoms that are concerning to you. Prescriptions: New hydromorphone [Dilaudid] 2 mg tablet 2 mg PO Q4-6H PRN (Reason: pain) Qty: 20 RF: 0 ondansetron 8 mg film 8 mg PO Q8H PRN (Reason: nausea and vomiting) 5 Days Qty: 30 RF: 0 No Action (DME) insulin syringe-needle U-100 [BD Insulin Syringe] 1 mL 27 gauge x 1/2 syringe See Rx Instructions .ROUTE .MEDSUPPLY Qty: 100 RF: 0 (DME) Dexcom G6 Sensor Device See Rx Instructions .ROUTE .MEDSUPPLY Qty: 3 RF: 11 (DME) Dexcom G6 Transmitter Device See Rx Instructions .ROUTE .MEDSUPPLY Qty: 1 RF: 11 (DME) Dexcom G6 Hair Baler Misc See Rx Instructions .ROUTE .MEDSUPPLY Qty: 1 RF: 0 Humalog U-100 Insulin 100 unit/mL cartridge 10 unit subcut TID 30 Days Qty: 9 RF: 4 amlodipine 10 mg tablet 10 mg PO DAILY RF: 0 aspirin [Adult Aspirin Regimen] 81 mg tablet,delayed release (DR/EC) 81 mg PO DAILY RF: 0 olmesartan 40 mg tablet 40 mg PO DAILY Qty: 90 RF: 3 tamsulosin 0.4 mg capsule 0.4 mg PO DAILY Qty: 90 RF: 3 cilostazol 100 mg tablet 100 mg PO BID Qty: 180 RF: 3 Toujeo Max U-300 SoloStar 300 unit/mL (3 mL) insulin pen 80 unit subcut DAILY Qty: 12 RF: 5 metformin 1,000 mg tablet 1,000 mg PO BID 90 Days Qty: 180 RF: 0 ondansetron HCl [Zofran] 4 mg tablet 4 mg PO Q8H PRN (Reason: nausea and vomiting) 30 Days Qty: 30 RF: 0 tadalafil [Cialis] 20 mg tablet 20 mg PO DAILY PRN (Reason: sexual activity) Qty: 30 RF: 4 rbjebqsnsk-mlztpdbzj-gyalyaftk 40-10-25 mg tablet 1 tab PO DAILY Qty: 30 RF: 5 olmesartan-hydrochlorothiazide 40-25 mg tablet 1 tab PO DAILY Qty: 30 RF: 3 nystatin 100,000 unit/gram powder 1 appl topical BID Qty: 60 RF: 2 omeprazole 20 mg capsule,delayed release(DR/EC) 20 mg PO DAILY Qty: 90 RF: 3 Spiriva Respimat 2.5 mcg/actuation mist 2 inh inhalation QAM Qty: 4 RF: 6 (DME) FreeStyle Lite Strips Strip See Rx Instructions .ROUTE .MEDSUPPLY Qty: 100 RF: 11 (DME) blood-glucose meter [FreeStyle [place] Lite] Kit See Rx Instructions .ROUTE .MEDSUPPLY Qty: 1 RF: 0 Ozempic 0.25 mg or 0.5 mg(2 mg/1.5 mL) pen injector See Rx Instructions subcut QWEEK 30 Days Qty: 1.5 RF: 11 atorvastatin 20 mg tablet 20 mg PO DAILY RF: 0
[2020-09-14] MEDS: ondansetron HCL 4 MG/2 ML VIAL IVPUSH (13:36)
[2020-09-14] MEDS: HYDROmorphone HCl 1 MG/ML SYRINGE IVPUSH ×2 (13:36→17:04)
[2020-09-14] MEDS: 0.9 % Sodium Chloride 1,000 ML 999 ML IV (13:36)
[2020-09-14 14:16] LABS: Alanine Aminotransferase < 6 U/L (0-40); Albumin Level 2.9 g/dL (3.5-5.0); Alkaline Phosphatase 81 U/L (39-117); Anion Gap 15 (12-20); Aspartate Amino Transferase 11 U/L (5-37); Bilirubin Total 0.4 mg/dL (0.0-1.0); Blood Urea Nitrogen 13 mg/dL (9-16); C Reactive Protein 0.42 mg/dL (< or = 0.50); Calcium 8.4 mg/dL (8.4-10.2); Carbon Dioxide 21 mmol/L (22-29); Chloride 108 mmol/L (96-108); Creatinine Clr Calc Pharmacy 60.7; Estimated Glomerular Filt Rate 53; Glucose Random 161 mg/dL (60-115); Lipase < 4 U/L (8-78); Potassium 4.6 mmol/L (3.3-5.1); Sodium 139 mmol/L (135-145); Total Protein 5.4 g/dL (6.5-8.0)
[2020-09-14 14:17] LABS: Troponin-I High Sensitivity 26.7 ng/L (<3.5-35.0)
[2020-09-14 14:33] LABS: MANUAL DIFF FLAG NO
[2020-09-14 14:37] LABS: Basophils Absolute Auto 0.1 X10*3/uL (0.0-0.2); Basophils Percent Auto 0.7 % (0-2); Eosinophils Absolute Auto 0.3 X10*3/uL (0.0-0.4); Eosinophils Percent Auto 4.6 % (0-4); Hematocrit 24.6 % (42-52); Hemoglobin 7.9 g/dl (14.0-18.0); Imm Gran Abs Auto 0.04 X10*3/uL (0.00-0.03); Imm Gran Pct Auto 0.6 % (0.0-0.4); Lymphocytes Absolute Auto 1.3 X10*3/uL (1.2-4.9); Lymphocytes Percent Auto 18.4 % (20-40); Mean Corpuscular HGB Conc 32.1 g/dl (31.0-36.0); Mean Corpuscular Hemoglobin 28.6 pg (27.0-33.0); Mean Corpuscular Volume 89.1 fL (80-98); Mean Platelet Volume 10.2 fL (9.4-12.4); Monocytes Absolute Auto 0.4 X10*3/uL (0.1-1.2); Monocytes Percent Auto 5.7 % (2-11); Neutrophils Absolute Auto 5.1 X10*3/uL (2.0-8.3); Platelet Count 217 X10*3/uL (160-400); Red Blood Count 2.76 X10*6/uL (4.60-5.80); Red Cell Distribution Width 14.6 % (11.0-16.0); White Blood Count 7.2 X10*3/uL (4.8-10.8)
[2020-09-14 14:42] LABS: INTERNATIONAL NORM RATIO 1.3 (0.9-1.1); Prothrombin Time 14.9 SEC (10.8-13.0)
[2020-09-14 14:45] LABS: Partial Thromboplastin Time 39.8 SEC (24.1-38.0)
[2020-09-14 14:51] LABS: Lactic Acid 0.8 mmol/L (0.5-2.0)
[2020-09-14] MEDS: iohexoL 350 MG/ML 100 ML INFUS..BTL IV (14:57)
[2020-09-14 15:12] VITALS: PULSE 16
[2020-09-14 15:22] LABS: Erythrocyte Sedimentation Rate 33 MM/HR (0-15)
[2020-09-14 15:33] VITALS: BP 138/57; PULSE 72; RESP 18; O2SAT 96
[2020-09-14 16:47] LABS: Iron 27 mcg/dL (45-160); Percent Iron Saturation 15 % (15-50); Total Iron Binding Capacity 186 mcg/dL (228-428); Unsaturated Iron Binding 159 ug/dL
[2020-09-14] MEDS: diphenhydrAMINE HCL 50 MG/ML VIAL 25 MG IVPUSH (17:04)
[2020-09-14] MEDS: ceFAZolin Sodium/Dextrose,Iso 2 GM/50 ML PIGGYBACK IV (17:05)
[2020-09-14 17:07] LABS: COVID-19 Test Negative (Negative); IDNOW Serial# 9DD0AD1C
[2020-09-14 17:17] VITALS: BP 155/70; PULSE 75; RESP 18; O2SAT 95
== END 2020-09-14 18:44 | disposition home or self-care (01) ==
PROVIDERS: Emergency Provider Emergency Medicine Emergency Medical Services; PCP Internal Medicine
DX: R07.9 Chest pain, unspecified (principal); R10.84 Generalized abdominal pain; D64.89 Other specified anemias; Z20.822 Contact with and (suspected) exposure to COVID-19; R11.2 Nausea with vomiting, unspecified; E11.9 Type 2 diabetes mellitus without complications; I10 Essential (primary) hypertension; E78.5 Hyperlipidemia, unspecified; Z79.84 Long term (current) use of oral hypoglycemic drugs; Z79.02 Long term (current) use of antithrombotics/antiplatelets; Z79.899 Other long term (current) drug therapy
CPT/HCPCS: 36415; 71046; 74177; 80053; 83540; 83605; 83690; 84484; 85025; 85610; 85652; 85730; 86140; 87040; 87635; 93005; 96361; 96365; 96375; 96376; 99284; J0690; J1170; J1200; J2405; Q9967

== ENCOUNTER 2020-09-16 11:05 | Inpatient (IN) | payer MEDICARE, SELFPAY ==
--- NOTE | ~2020-09-16 | CT_ITS ---
EXAMINATION: CT ABDOMEN AND PELVIS WITH CONTRAST CLINICAL INFORMATION: worsening abdominal pain COMPARISON: 09/14/2020 TECHNIQUE: Multidetector volumetric images were obtained from the superior aspect of the liver through the pubic symphysis following administration 85 mL of Omnipaque 350 intravenous contrast. Sagittal and coronal reformatted images were obtained on the technologist's workstation. Oral contrast: No This CT examination was performed using dose optimization techniques as appropriate, variously including the following: *Automated exposure control *Adjustment of mA and/or kV according to patient size (this includes techniques or standardized protocols for targeted exams where dose is matched to indication/reason for exam; i.e. extremities or head) *Use of iterative reconstruction technique DLP: 992 mGy-cm FINDINGS: LUNG BASES: Small to moderate-sized dependent pleural effusions are present bilaterally with associated dependent atelectasis. These effusions are increased as compared to prior. Heart is normal in size. No focal airspace consolidation. LIVER, GALLBLADDER, AND BILIARY TREE: The liver is normal in size, shape, and attenuation. No focal hepatic lesion. Trace intrahepatic ductal dilatation in the left hepatic lobe is unchanged from prior. No new ductal dilatation. 2 small dependent gallstones are identified. No gallbladder wall thickening or surrounding pericholecystic fluid. Gallbladder is hydropic. PANCREAS: As seen on the prior study, there is pancreatic atrophy with ductal dilatation to 5 mm at the level of the head and body, similar to prior. A dense 1.1 cm calcification is again seen in the pancreatic head. Additional pancreatic calculi are identified, consistent with findings of chronic pancreatitis. No evidence of acute pancreatitis. No focal lesions are identified. SPLEEN: Unremarkable. ADRENAL GLANDS: Unremarkable. KIDNEYS AND URETERS: The kidneys are normal in size, shape, and attenuation. Kidneys enhance symmetrically. No hydronephrosis, hydroureter, or calculi seen. No perinephric stranding. Vascular calcifications are present in the [place]. BLADDER: Relative density of the material and the bladder is likely related to contrast from prior studies. There is small amount of air in the bladder, potentially due to catheterization. GASTROINTESTINAL TRACT: Stomach, small bowel, and colon are normal in caliber. There is moderate amount of stool throughout the colon. No wall thickening. Mild colonic diverticulosis. No intraperitoneal free fluid. ABDOMINAL WALL: Postsurgical changes are evident with a recent ventral abdominal incision and surrounding fat stranding. No hernia. Mild fat stranding within the retroperitoneal soft tissues is similar to prior and consistent with recent surgery. LYMPH NODES: No adenopathy. VASCULAR: Since the prior study, there has been placement of an extra-anatomic aortobifemoral surgical graft. This remains. And without evidence of thrombosis. No aneurysmal dilatation. There is a persistent . Graft fluid collection extending from the level of the bifurcation along the left iliac limb over a distance of 14 cm. This measures up to 4.2 x 2.6 cm in greatest axial cross section, not significant changed from the prior study by my measurement (4.2 x 2.7 cm). No foci of gas are identified in this region. Smaller collections are present in the inguinal regions bilaterally near the site of vascular access. These collections appear unchanged in size from prior with resolution of the previously seen foci of gas. Most notably, there is a superficial collection in the right inguinal region measuring 3.3 x 2.2 cm in greatest cross-section, decreased in size from 3.5 x 2.2 cm on the prior. Marked calcific atherosclerosis is again seen within the solomon distal abdominal aorta and iliac arteries. PELVIC VISCERA: Central gland hypertrophy at the prostate. OSSEOUS STRUCTURES: Mild to moderate multilevel degenerative spondylosis in the lumbar spine. No acute osseous findings. CT/CT abdomen pelvis w con IMPRESSION: 1. No significant change in the postsurgical fluid collection around the left iliac limb of the aortobifemoral graft. No new collections are identified. Smaller collections in the bilateral inguinal regions are unchanged as well with resolution of the previously seen foci of subcutaneous gas. No new fluid collections. 2. No new, acute intra-abdominal or intrapelvic abnormalities. Moderate volume of stool throughout the colon. 3. Small to moderate-sized bilateral pleural effusions are slightly increased in size as compared to prior. 4. Small focus of gas in the bladder, presumably due to recent catheterization and similar to prior. Gas-forming infectious cystitis would be less likely. 5. Cholelithiasis without evidence of acute cholecystitis. 6. Pancreatic atrophy with mild ductal dilatation, unchanged from prior. Numerous pancreatic calcifications are most consistent with chronic pancreatitis.
--- NOTE | ~2020-09-16 | XR_ITS ---
EXAMINATION: XR CHEST CLINICAL INFORMATION: Weakness. COMPARISON: None TECHNIQUE: Frontal view of the chest was obtained. FINDINGS: The lungs are hypoexpanded with increased vascular markings. There is mild haziness in both lung bases. The heart size is normal. A right PICC line is noted with its tip in the mid SVC. No gross bony abnormality. XR/XR chest 1V IMPRESSION: Stable prominent interstitial/vascular markings question mild vascular congestion. Interstitial pneumonitis cannot be excluded. Mild haziness in both lung bases shows minimal improvement.
--- NOTE | 2020-09-16 11:18 | ED_ITS ---
HPI - Abdominal Pain General Chief Complaint: Abdominal Pain Stated Complaint: abd pain, n/v, weakness Time Seen by Provider: 09/16/20 11:18 Source: patient, EMS and old records reviewed Mode of arrival: EMS Limitations: other (poor historian) History of Present Illness HPI narrative: 70 yo male with DM, HTN, HPL. obesity s/p aortic bi fem bypass on 08/08 on [facility] since then has not felt well recurrent nausea, abdominal pain and weakness since initial surgery he has had a left groin abscess requiring repeat surgical intervention as well as Ancef 2G TID and placement of vancomycin beads had repeat washout on 09/05 sent home from [facility] on 09/12 - seen in ED on 09/14 for abdominal pain weakness, chest heaviness, states he cannot tolerate his ancef and it is making him sick, missed his dose this AM, + flatus but reports constipation in ED on 09/14 negative ACS workup as well as CT scan improving from prior MD elicited complaint: abdominal pain and other (weakness) Pertinent past history: other (recent vascular surgery with abscess complication) Onset (ago): week(s) (4 but worse last night after taking his ancef which he thinks is making him sic) Pain Consistency: constant Location: diffuse and chest Severity: moderate Quality: aching Radiation: none Migration to: no migration Exacerbating factors: medication and movement Relieving factors: nothing Context: recent antibiotic use and recent surgery/procedure Associated symptoms: nausea and constipation Related Data Home Medications Medication Instructions Recorded Confirmed amlodipine 10 mg tablet 10 mg PO DAILY 04/19/20 07/10/20 aspirin 81 mg tablet,delayed 81 mg PO DAILY 04/19/20 07/10/20 release atorvastatin 20 mg tablet 20 mg PO DAILY 04/26/20 07/10/20 Previous Rx's Medication Instructions Recorded insulin syringe-needle U-100 1 mL #100 ea 03/09/20 27 gauge x 1/2 blood-glucose meter,continuous #1 ea 03/22/20 blood-glucose sensor #3 ea 03/22/20 blood-glucose transmitter #1 ea 03/22/20 insulin lispro 100 unit/mL 10 unit SUBCUT TID 30 Days #9 ml 04/11/20 subcutaneous cartridge blood sugar diagnostic #100 ea 04/26/20 blood-glucose meter #1 ea 04/26/20 semaglutide See Rx Instructions SUBCUT QWEEK 04/26/20 30 Days #1.5 ml tadalafil 20 mg tablet 20 mg PO DAILY PRN #30 tab 05/17/20 omeprazole 20 mg capsule,delayed 20 mg PO DAILY #90 cap 05/19/20 release tiotropium bromide 2.5 2 inh INHALATION QAM #4 g 05/19/20 mcg/actuation mist for inhalation olmesartan 40 mg tablet 40 mg PO DAILY #90 tab 06/13/20 tamsulosin 0.4 mg capsule 0.4 mg PO DAILY #90 cap 06/19/20 cilostazol 100 mg tablet 100 mg PO BID #180 tab 07/03/20 nystatin 100,000 unit/gram topical 1 appl TOPICAL BID #60 g 07/10/20 powder olmesartan 40 mg-amlodipine 10 1 tab PO DAILY #30 tab 07/10/20 mg-hydrochlorothiazide 25 mg tablet olmesartan 40 1 tab PO DAILY #30 tab 07/10/20 mg-hydrochlorothiazide 25 mg tablet insulin glargine U-300 conc 300 80 unit SUBCUT DAILY #12 ml 07/14/20 unit/mL (3 mL) subcutaneous pen metformin 1,000 mg tablet 1,000 mg PO BID 90 Days #180 tab 07/17/20 ondansetron HCl 4 mg tablet 4 mg PO Q8H PRN 30 Days #30 tab 09/13/20 hydromorphone [Dilaudid] 2 mg PO Q4-6H PRN #20 tab 09/14/20 ondansetron 8 mg PO Q8H PRN 5 Days #30 ea 09/14/20 Allergies Allergy/AdvReac Type Severity Reaction Status Date / Time No Known Allergies Allergy Unknown UNKNOWN Verified 09/14/20 11:44 Review of Systems Review of Systems Constitutional : No Weight loss, No Fever, No Chills ENT/Mouth : No sore throat, No Rhinorrhea Eyes: No Swelling, No Redness Cardiovascular : pos Chest Pain, No SOB, NoEdema Respiratory : No Cough, No Sputum, No Wheezing Gastrointestinal : Positive Nausea, no Vomiting, no Diarrhea, positive abdominal Pain, No Hematochezia, No Melena, pos constipation Genitourinary : No Dysuria, No Urinary Frequency, No Hematuria, No Urgency Musculoskeletal : No joint pain, No Myalgias, No Joint Swelling Skin : No Skin Lesions, No rash Neuro : pos Weakness, No Numbness, No Dizziness, No Headache Psych : No Anxiety/Panic, No Depression Heme/Lymph: No Bruising, No Lymphadenopathy Endocrine : No Polyuria, No Polydipsia All other systems reviewed and are negative. Physical Exam Vital Signs: Vital Signs: Last Vital Signs Temp 98.3 F 09/16/20 12:51 Pulse 73 09/16/20 12:51 Resp 15 09/16/20 12:51 BP 164/80 H 09/16/20 12:51 Pulse Ox 95 09/16/20 12:51 Body Mass Index 32.3 Appearance: Alert. Oriented X3. No acute distress. Eyes: Pupils equal, round and reactive to light. ENT: Pharynx normal. Neck: Normal inspection. Neck supple. CVS: Normal heart rate and rhythm. Pulses normal. Respiratory: No respiratory distress. Breath sounds normal. Abdomen: Soft and mild diffuse ttp incisions c/d/i, groin L no erythema/drainage/no palpable mass dressing c/d/i Skin: Skin warm and dry. Normal skin color. Normal skin turgor. Extremities: pos2+ pitting lower extremity edema. No calf ttp Neuro: Oriented X 3. No motor deficit. No sensory deficit. Course Course Course Narrative: no real change in CT scan but still nauseated and given edema/effusions inability to tolerate ancef or walk at home will admit for nausea patient is very nauseated repeat reglan ordered IV lasix ordered given effusions and LE edema will attempt to admit patient MDM - Abdominal Pain MDM Narrative Medical decision making narrative: 70 yo male with recent aorto fem bypass resulting in L groin abscess requiring PICC line and IV antibiotics/vancomycin beads comes in today with c/o persistent pain, nausea, weakness, chest pain for (long time) thinks his ancef is making him sick his is giving it to him 2G over 10 to 20 minutes which he thinks is too fast at this time will obtain labs, cultures, give him his ancef with benadryl, IV dilaudid for pain, CT scan for recurrence of infection, dispo per results and findings. Lab Data Result diagrams: 09/16/20 11:32 09/16/20 11:32 Labs: Lab Results 09/16/20 09/16/20 09/16/20 Range/Units 11:32 11:32 11:32 WBC 7.5 (4.8-10.8) X10*3/uL RBC 2.77 L (4.60-5.80) X10*6/uL Hgb 7.8 L (14.0-18.0) g/dl Hct 24.6 L (42-52) % MCV 88.8 (80-98) fL MCH 28.2 (27.0-33.0) pg MCHC 31.7 (31.0-36.0) g/dl RDW 14.9 (11.0-16.0) % Plt Count 244 (160-400) X10*3/uL MPV 9.9 (9.4-12.4) fL Immature Gran % (Auto) 0.4 (0.0-0.4) % Neut % (Auto) 62.4 (45-73) % Lymph % (Auto) 22.7 (20-40) % [place] % (Auto) 7.3 (2-11) % Eos % (Auto) 6.5 H (0-4) % Baso % (Auto) 0.7 (0-2) % Lymph # (Auto) 1.7 (1.2-4.9) X10*3/uL [place] # (Auto) 0.6 (0.1-1.2) X10*3/uL Eos # (Auto) 0.5 H (0.0-0.4) X10*3/uL Baso # (Auto) 0.1 (0.0-0.2) X10*3/uL Abs Immat Gran (auto) 0.03 (0.00-0.03) X10*3/uL Absolute Neuts (auto) 4.7 (2.0-8.3) X10*3/uL Absolute Nucleated RBC 0.000 (0.0-0.012) X10*3/uL Nucleated RBC % (auto) 0.0 (0.0-0.2) /100WBC PT 15.6 H (10.8-13.0) SEC INR 1.3 H (0.9-1.1) APTT 39.5 H (24.1-38.0) SEC Sodium 140 (135-145) mmol/L Potassium 3.9 (3.3-5.1) mmol/L Chloride 106 (96-108) mmol/L Carbon Dioxide 24 (22-29) mmol/L Anion Gap 14 (12-20) BUN 10 (9-16) mg/dL Creatinine 1.24 (0.5-1.4) mg/dL Estim Creat Clear Calc 64.4 Estimated GFR 57 Random Glucose 110 (60-115) mg/dL Lactic Acid (0.5-2.0) mmol/L Calcium 8.4 (8.4-10.2) mg/dL Magnesium 1.8 (1.6-2.6) mg/dL Total Bilirubin 0.4 (0.0-1.0) mg/dL Direct Bilirubin 0.2 (0.0-0.5) mg/dL AST 12 (5-37) U/L ALT < 6 (0-40) U/L Alkaline Phosphatase 75 (39-117) U/L Troponin I High Sens (<3.5-35.0) ng/L Total Protein 5.6 L (6.5-8.0) g/dL Albumin 3.0 L (3.5-5.0) g/dL Lipase < 4 L (8-78) U/L 09/16/20 09/16/20 Range/Units 11:32 11:32 WBC (4.8-10.8) X10*3/uL RBC (4.60-5.80) X10*6/uL Hgb (14.0-18.0) g/dl Hct (42-52) % MCV (80-98) fL MCH (27.0-33.0) pg MCHC (31.0-36.0) g/dl RDW (11.0-16.0) % Plt Count (160-400) X10*3/uL MPV (9.4-12.4) fL Immature Gran % (Auto) (0.0-0.4) % Neut % (Auto) (45-73) % Lymph % (Auto) (20-40) % [place] % (Auto) (2-11) % Eos % (Auto) (0-4) % Baso % (Auto) (0-2) % Lymph # (Auto) (1.2-4.9) X10*3/uL [place] # (Auto) (0.1-1.2) X10*3/uL Eos # (Auto) (0.0-0.4) X10*3/uL Baso # (Auto) (0.0-0.2) X10*3/uL Abs Immat Gran (auto) (0.00-0.03) X10*3/uL Absolute Neuts (auto) (2.0-8.3) X10*3/uL Absolute Nucleated RBC (0.0-0.012) X10*3/uL Nucleated RBC % (auto) (0.0-0.2) /100WBC PT (10.8-13.0) SEC INR (0.9-1.1) APTT (24.1-38.0) SEC Sodium (135-145) mmol/L Potassium (3.3-5.1) mmol/L Chloride (96-108) mmol/L Carbon Dioxide (22-29) mmol/L Anion Gap (12-20) BUN (9-16) mg/dL Creatinine (0.5-1.4) mg/dL Estim Creat Clear Calc Estimated GFR Random Glucose (60-115) mg/dL Lactic Acid 0.8 (0.5-2.0) mmol/L Calcium (8.4-10.2) mg/dL Magnesium (1.6-2.6) mg/dL Total Bilirubin (0.0-1.0) mg/dL Direct Bilirubin (0.0-0.5) mg/dL AST (5-37) U/L ALT (0-40) U/L Alkaline Phosphatase (39-117) U/L Troponin I High Sens 33.2 (<3.5-35.0) ng/L Total Protein (6.5-8.0) g/dL Albumin (3.5-5.0) g/dL Lipase (8-78) U/L ECG Data Attestation: I personally reviewed and interpreted this ECG as follows: ECG interpretation date: 09/16/20 ECG interpretation time: 11:55 Interpretation: Rate: 80 Rhythm: NSR with occ PVCs [place]: normal Normal P waves. Normal DANI. Normal QRS complex. ST T wave : normal, no PAOLA qTC: normal prior studies: no acute ischemia The study has been interpreted contemporaneously by me. . Discharge Plan Discharge Clinical Impression: Abdominal pain, Weakness, Vomiting, Pleural effusion Patient Disposition: Admitted As Inpatient Prescriptions: No Action (DME) insulin syringe-needle U-100 [BD Insulin Syringe] 1 mL 27 gauge x 1/2 syringe See Rx Instructions .ROUTE .MEDSUPPLY Qty: 100 RF: 0 (DME) Dexcom G6 Sensor Device See Rx Instructions .ROUTE .MEDSUPPLY Qty: 3 RF: 11 (DME) Dexcom G6 Transmitter Device See Rx Instructions .ROUTE .MEDSUPPLY Qty: 1 RF: 11 (DME) Dexcom G6 Precision Devices Inspector/Tester Misc See Rx Instructions .ROUTE .MEDSUPPLY Qty: 1 RF: 0 Humalog U-100 Insulin 100 unit/mL cartridge 10 unit subcut TID 30 Days Qty: 9 RF: 4 amlodipine 10 mg tablet 10 mg PO DAILY RF: 0 aspirin [Adult Aspirin Regimen] 81 mg tablet,delayed release (DR/EC) 81 mg PO DAILY RF: 0 olmesartan 40 mg tablet 40 mg PO DAILY Qty: 90 RF: 3 tamsulosin 0.4 mg capsule 0.4 mg PO DAILY Qty: 90 RF: 3 cilostazol 100 mg tablet 100 mg PO BID Qty: 180 RF: 3 Toujeo Max U-300 SoloStar 300 unit/mL (3 mL) insulin pen 80 unit subcut DAILY Qty: 12 RF: 5 metformin 1,000 mg tablet 1,000 mg PO BID 90 Days Qty: 180 RF: 0 ondansetron HCl [Zofran] 4 mg tablet 4 mg PO Q8H PRN (Reason: nausea and vomiting) 30 Days Qty: 30 RF: 0 hydromorphone [Dilaudid] 2 mg tablet 2 mg PO Q4-6H PRN (Reason: pain) Qty: 20 RF: 0 ondansetron 8 mg film 8 mg PO Q8H PRN (Reason: nausea and vomiting) 5 Days Qty: 30 RF: 0 tadalafil [Cialis] 20 mg tablet 20 mg PO DAILY PRN (Reason: sexual activity) Qty: 30 RF: 4 dzaqvsqkhb-fjdhamdfb-cynxupaxo 40-10-25 mg tablet 1 tab PO DAILY Qty: 30 RF: 5 olmesartan-hydrochlorothiazide 40-25 mg tablet 1 tab PO DAILY Qty: 30 RF: 3 nystatin 100,000 unit/gram powder 1 appl topical BID Qty: 60 RF: 2 omeprazole 20 mg capsule,delayed release(DR/EC) 20 mg PO DAILY Qty: 90 RF: 3 Spiriva Respimat 2.5 mcg/actuation mist 2 inh inhalation QAM Qty: 4 RF: 6 (DME) FreeStyle Lite Strips Strip See Rx Instructions .ROUTE .MEDSUPPLY Qty: 100 RF: 11 (DME) blood-glucose meter [FreeStyle [place] Lite] Kit See Rx Instructions .ROUTE .MEDSUPPLY Qty: 1 RF: 0 Ozempic 0.25 mg or 0.5 mg(2 mg/1.5 mL) pen injector See Rx Instructions subcut QWEEK 30 Days Qty: 1.5 RF: 11 atorvastatin 20 mg tablet 20 mg PO DAILY RF: 0 PMFSH Past Medical History Medical History BPH (benign prostatic hyperplasia) Cough Diabetic retinopathy Goiter HLD (hyperlipidemia) HTN (hypertension) PVD (peripheral vascular disease) T2DM (type 2 diabetes mellitus) Vitamin D deficiency Surgical History H/O gjohz-hdtki-pahnjga bypass Hx of basal cell carcinoma excision Family History Family History Father Diabetes Mother Diabetes Leukemia Skin cancer Alzheimers disease Dementia Social History Social History Alcohol intake: never Smoking Status: Former smoker Packs Per Day: 3 Years Smoked: 20 Advance Directives: No Advance Directives Information Provided: Yes
[2020-09-16 11:22] VITALS: BP 107/43; PULSE 82; RESP 18; TEMP 36.6; O2SAT 96; BMI 32.3
--- NOTE | 2020-09-16 11:23 | ECG_ITS ---
Test Reason : EPIGASTRIC PAIN Blood Pressure : / mmHG Vent. Rate : 080 BPM Atrial Rate : 080 BPM P-R Int : 140 ms QRS Dur : 082 ms QT Int : 404 ms P-R-T Axes : 070 040 063 degrees QTc Int : 465 ms Sinus rhythm with frequent Premature ventricular complexes Low voltage QRS Borderline ECG When compared with ECG of 14-SEP-2020 12:30, No significant change was found Referred By: Lexis Segura Electronically Signed By:Bert De Los Santos
[2020-09-16 11:41] LABS: MANUAL DIFF FLAG NO
[2020-09-16 11:43] LABS: Basophils Absolute Auto 0.1 X10*3/uL (0.0-0.2); Basophils Percent Auto 0.7 % (0-2); Eosinophils Absolute Auto 0.5 X10*3/uL (0.0-0.4); Eosinophils Percent Auto 6.5 % (0-4); Hematocrit 24.6 % (42-52); Hemoglobin 7.8 g/dl (14.0-18.0); Imm Gran Abs Auto 0.03 X10*3/uL (0.00-0.03); Imm Gran Pct Auto 0.4 % (0.0-0.4); Lymphocytes Absolute Auto 1.7 X10*3/uL (1.2-4.9); Lymphocytes Percent Auto 22.7 % (20-40); Mean Corpuscular HGB Conc 31.7 g/dl (31.0-36.0); Mean Corpuscular Hemoglobin 28.2 pg (27.0-33.0); Mean Corpuscular Volume 88.8 fL (80-98); Mean Platelet Volume 9.9 fL (9.4-12.4); Monocytes Absolute Auto 0.6 X10*3/uL (0.1-1.2); Monocytes Percent Auto 7.3 % (2-11); Neutrophils Absolute Auto 4.7 X10*3/uL (2.0-8.3); Neutrophils Percent Auto 62.4 % (45-73); Platelet Count 244 X10*3/uL (160-400); Red Blood Count 2.77 X10*6/uL (4.60-5.80); Red Cell Distribution Width 14.9 % (11.0-16.0); White Blood Count 7.5 X10*3/uL (4.8-10.8)
[2020-09-16] MEDS: ondansetron HCL 4 MG/2 ML VIAL IVPUSH ×2 (11:47→20:27)
[2020-09-16] MEDS: 0.9 % Sodium Chloride 500 ML IV (11:47)
[2020-09-16] MEDS: diphenhydrAMINE HCL 50 MG/ML VIAL 25 MG IVPUSH ×2 (11:47→18:21)
[2020-09-16] MEDS: HYDROmorphone HCl 1 MG/ML SYRINGE IVPUSH ×2 (11:47→14:32)
[2020-09-16 11:52] LABS: INTERNATIONAL NORM RATIO 1.3 (0.9-1.1); Prothrombin Time 15.6 SEC (10.8-13.0)
[2020-09-16 11:56] LABS: Partial Thromboplastin Time 39.5 SEC (24.1-38.0)
[2020-09-16 12:12] LABS: Lactic Acid 0.8 mmol/L (0.5-2.0)
[2020-09-16 12:21] LABS: Troponin-I High Sensitivity 33.2 ng/L (<3.5-35.0)
[2020-09-16 12:27] LABS: Alanine Aminotransferase < 6 U/L (0-40); Alkaline Phosphatase 75 U/L (39-117); Anion Gap 14 (12-20); Aspartate Amino Transferase 12 U/L (5-37); Bilirubin Direct 0.2 mg/dL (0.0-0.5); Bilirubin Total 0.4 mg/dL (0.0-1.0); Blood Urea Nitrogen 10 mg/dL (9-16); Calcium 8.4 mg/dL (8.4-10.2); Carbon Dioxide 24 mmol/L (22-29); Chloride 106 mmol/L (96-108); Creatinine Clr Calc Pharmacy 64.4; Estimated Glomerular Filt Rate 57; Glucose Random 110 mg/dL (60-115); Lipase < 4 U/L (8-78); Magnesium 1.8 mg/dL (1.6-2.6); Potassium 3.9 mmol/L (3.3-5.1); Sodium 140 mmol/L (135-145); Total Protein 5.6 g/dL (6.5-8.0)
[2020-09-16 12:51] VITALS: BP 164/80; PULSE 73; RESP 15; TEMP 36.8; O2SAT 95
[2020-09-16] MEDS: iohexoL 350 MG/ML 100 ML INFUS..BTL 85 ML IV (13:20)
[2020-09-16] MEDS: Furosemide 40 MG/4 ML VIAL IVPUSH (15:17)
[2020-09-16] MEDS: Metoclopramide HCl 10 MG/2 ML VIAL 5 MG IVPUSH (15:17)
[2020-09-16 15:30] LABS: B Type Natriuretic Peptide 1092 pg/mL (<100)
[2020-09-16 15:49] VITALS: BP 162/77; PULSE 76; RESP 18; TEMP 36.7; O2SAT 94
[2020-09-16 16:01] LABS: Glucose Urine UA NEG (NEG); Leukocyte Esterase Urine NEG (NEG); Nitrite Urine NEG (NEG); Specific Gravity - Urine 1.015 (1.005-1.025); Urine Blood NEG (NEG); Urine Ketones NEG (NEG); Urine Protein NEG (NEG-TRACE)
[2020-09-16 16:02] LABS: Appearance Urine CLEAR; Color Urine YELLOW
[2020-09-16 16:12] LABS: COVID-19 Test Negative (Negative)
[2020-09-16 18:05] VITALS: BP 145/74; PULSE 78; RESP 16; TEMP 36.7; O2SAT 95
[2020-09-16] MEDS: Docusate Sodium 100 MG CAPSULE 200 MG PO (18:22)
[2020-09-16] MEDS: Enoxaparin Sodium 40 MG/0.4 ML SYRINGE SUBCUT (18:22)
--- NOTE | 2020-09-16 19:22 | HP_ITS ---
DATE OF SERVICE: 09/16/2020 CHIEF COMPLAINT: Abdominal pain, nausea, vomiting, and generalized weakness. HISTORY OF PRESENTING ILLNESS: This is a 70-year-old gentleman with past medical history significant for type 2 diabetes mellitus, on insulin; hypertension; hyperlipidemia; and history of hepatitis C. The patient recently underwent aortic bifemoral bypass surgery on August 08, at [facility] and was discharged from their facility on August 13. After being at home, the patient generally feeling weak and on August 31, presented to [facility] due to abdominal pain. A CAT scan of the abdomen and pelvis was obtained in ER that showed fluid tracks around the aorta and the bypass graft on the left leg through the pelvis and into the groin,there was air collection in the fluid consistent with small abscess. The bilateral grafts were patent. There was also mild hydronephrosis of the left kidney with point of obstruction of the ureter as it passes around the left iliac graft. With these abnormal results, the patient was sent back to [facility], where he was admitted from August 31 to September 12. and underwent repeat surgical intervention with placement of vancomycin beads,and was started on IV antibiotics. and subsequently discharged home on PICC line for 6 weeks of IV Ancef. patient returned to [facility] on September 14, with similar complaints of nausea and vomiting after receiving Ancef shots. He also complained of poor appetite and significant nausea, worse soon after receiving the IV push cefazolin. A repeat CAT scan of the abdomen was showing some improvement in the fluid collection, since his CAT scan was better and there was no fever, no chills and no other reason for admission, the patient was discharged home on Dilaudid for abdominal pain as well as Zofran. However, the patient returned back to [facility] today with persistent symptoms of generalized weakness, decreased p.o. intake, persistent nausea, vomiting, constipation, worse feeling after receiving IV Ancef shot that has been given for total 6 weeks, 2 g t.i.d. The patient's repeat CAT scan today once again does not show any worsening of fluid collection, and there is not significant change as compared to the CAT scan findings 2 days ago, but the patient's laboratory data today revealed that the patient's BNP significantly elevated at 1092. His albumin is low at 3 with a total protein of 5.6. His hematocrit is low, but stable around 24.6. There is no leukocytosis. Platelet counts are stable. EKG shows no acute ischemic changes. The patient denies any prior history of coronary artery disease or congestive heart failure. The patient denies any fever, chills, or shortness of breath. He denies any cough, but since the patient is generally weak with worsening BNP, poor by mouth intake and low albumin, he is being admitted to [facility] for continued monitoring and treatment. PAST MEDICAL HISTORY: Significant for, 1. BPH. 2. Type 2 diabetes mellitus. 3. Hepatitis C. 4. Hyperlipidemia. 5. Hypertension. 6. Hypogonadism. 7. Obesity. 8. History of right shoulder pain. 9. History of knee arthroscopy. MEDICATIONS: Needs to be reconciled, but he takes amlodipine 10 mg daily, aspirin 81 mg daily, Lipitor 20 mg daily, cilostazol 100 mg b.i.d., Dilaudid 2 mg every 4 to 6 hours as needed, insulin Lantus 80 units subcutaneously daily, insulin lispro 10 units t.i.d., metformin 1000 b.i.d., nystatin topical powder twice daily, olmesartan 40 mg daily, hydrochlorothiazide 25 mg daily, omeprazole 20 daily, Zofran 8 mg every 8 hours as needed, semaglutide weekly, Flomax 0.4 mg daily, and tiotropium bromide 2 inhalation q.a.m. SOCIAL HISTORY: The patient is , lives with his . Denies history of smoking or alcohol abuse. He is a retired [employer]. Ambulates with no assistive device. FAMILY HISTORY: Parents are . There is no family history of premature coronary artery disease. REVIEW OF SYSTEMS: LICENSED STAFF MFT: The patient denies any headache or dizziness. CVS: He denies any chest pain or palpitation. GENERAL: He complains of generalized weakness, has not been ambulating, only out of bed to chair. GI: Complains of nausea, vomiting, and constipation. : No urinary symptoms of urgency or frequency. Rest all other systems are reviewed and are negative. ALLERGIES: THE PATIENT HAS NO KNOWN DRUG ALLERGIES. PHYSICAL EXAMINATION: GENERAL: The patient is resting comfortably, does not appear to be in acute distress. VITAL SIGNS: BP 162/77, pulse of 76, respiratory rate 18, temperature of 98.1, and O2 saturation 94% on room air. HEENT: Pupils equal, round, and reactive to light and accommodation. NECK: Supple. No JVD. LUNGS: Clear to auscultation bilaterally with diminished breath sound at bases. There are no crackles, wheeze, or rhonchi. HEART: Regular rate rhythm. ABDOMEN: Obese and soft. Mid abdominal incision is well healed. No tenderness to palpation. Bowel sounds are audible. No guarding. No rigidity. EXTREMITIES: Bilateral pitting edema. Color pale. NEUROLOGIC: Nonfocal. Good peripheral pulses. LABORATORY DATA: EKG showed sinus rhythm with PVCs, low-voltage QRS, no acute ischemic changes. BNP 1092. WBC 7.5; hematocrit 24.6, hematocrit on August 31 was 27.7; platelet count of 244. Sodium 140, potassium 3.9, creatinine 1.24, BUN of 10. Iron 27, iron saturation 15, total iron-binding capacity 186. Normal LFTs. Troponin 33.2. Albumin 3. Lipase of less than 4. CT abdomen and pelvis showed no significant change in postsurgical fluid collection around the left iliac limb of the aortobifemoral graft. No new collections are identified. Smaller collections in the bilateral inguinal regions are unchanged as well with resolution of the previously seen foci of subcutaneous gas. There is no new fluid collection noted. There are no acute new intraabdominal or intrapelvic abnormalities. Moderate stool throughout the colon. Small to moderate size bilateral pleural effusion that is new compared to recent study couple days ago. Small focus of gas in the bladder. Cholelithiasis with no acute cholecystitis and findings consistent with chronic pancreatitis. ASSESSMENT AND PLAN: This is a 70-year-old gentleman with past medical history of diabetes, hypertension, hyperlipidemia, obesity and status post aortobifemoral bypass on August 08, presented to [facility] with nausea, abdominal pain, generalized weakness and constipation. The patient after his initial surgery, had a left groin abscess that required readmission to [facility] with repeat surgical intervention with placement of vancomycin beads, had repeat washout on September 05. The patient was discharged from [facility] on September 13 on Ancef 2 g t.i.d. The patient evaluated at [facility] on September 14, with similar symptoms of abdominal pain, weakness and intolerance to Ancef that made him sick, but since there were no new findings on CAT scan of the abdomen on September 14, that showed improvement from the prior CAT scan, therefore the patient was discharged home. However, he returned with similar symptoms today and noted to have new bilateral pleural effusion, elevated BNP and low albumin. The patient is now being admitted for fluid overload as well as decreased p.o. intake and generalized weakness. PROBLEM LIST: 1. Status post aortobifemoral bypass on August 08, now with left groin abscess, currently on IV Ancef with intolerance to IV Ancef in the form of extreme nausea ,fatigue and weakness.We will obtain the culture report and sensitivities from [facility]. Till then, continue Ancef 2 g t.i.d. along with Benadryl and antiemetics and obtain ID consultation for adjustment of antibiotics. The patient currently is afebrile with normal WBC count. There is no evidence of worsening abscess or new collection. Will treat abdominal pain with IV Dilaudid and oxycodone In regard to constipation he will be placed on bowel regimes, likely nausea related to constipation And narcotic. 2. Fluid overload. The patient has no prior history of coronary artery disease or congestive heart failure. Noted to have a BNP of 1092. Likely fluid overload, multifactorial with low albumin, IV fluid resuscitation during recent hospitalization and Norvasc, will treat the patient with IV diuretics, place a [place] catheter for fluid management, and obtain an echocardiogram. The patient denies chest pain. EKG with no acute ischemic changes and normal troponin. Further workup depending on findings on echocardiogram. 3. Diabetes mellitus type 2. The patient is on insulin and metformin. We will place him on diabetic diet. Since the patient's by mouth intake is low with a blood sugar only 110, we will hold off on scheduled Lantus and continue treating with insulin sliding scale. 4. Hypertension. The patient is on multiple antihypertensives including Norvasc 10 mg, that must be contributing to leg edema as well as olmesartan and hydrochlorothiazide. We will await final medication reconciliation and start the patient on antihypertensive medication. 5. Obesity. We will recommend low-calorie diet. 6. Deep vein thrombosis prophylaxis. The patient will be placed on Lovenox subcu. 7. Code status. The patient wishes to be a full code. MD CYNDI Mcintyre/JEANETTE / [id number] MTDD
[2020-09-16 19:36] VITALS: BP 157/79; PULSE 79; RESP 16; TEMP 36.8; O2SAT 95
[2020-09-16 20:18] VITALS: RESP 18
[2020-09-16] MEDS: HYDROmorphone HCl 0.5 MG/0.5 ML SYRINGE IVPUSH (20:18)
[2020-09-16] MEDS: ceFAZolin Sodium/Dextrose,Iso 2 GM/50 ML PIGGYBACK IV (20:20)
[2020-09-16] MEDS: Sennosides 8.6 MG TABLET 17.2 MG PO (20:22)
[2020-09-16 20:29] LABS: Glucose, Whole Blood 85 mg/dL (60-115)
[2020-09-17] VITALS (9 sets, daily range): BP systolic 136–172; BP diastolic 72–90; PULSE 67–90; RESP 13–18; TEMP 35.9–36.7; O2SAT 91–98
[2020-09-17] MEDS: Acetaminophen 325 MG TABLET 650 MG PO ×2 (00:53→14:13)
[2020-09-17] MEDS: 0.9 % Sodium Chloride Flush 3 ML SYRINGE IVFLUSH ×4 (00:56→20:09)
[2020-09-17] MEDS: diphenhydrAMINE HCL 50 MG/ML VIAL 25 MG IVPUSH ×3 (00:57→17:19)
[2020-09-17] MEDS: HYDROmorphone HCl 0.5 MG/0.5 ML SYRINGE IVPUSH ×3 (01:01→10:17)
[2020-09-17] MEDS: ceFAZolin Sodium/Dextrose,Iso 2 GM/50 ML PIGGYBACK IV ×3 (04:47→20:02)
[2020-09-17] MEDS: Omeprazole 20 MG CAPSULE.DR PO (04:57)
[2020-09-17] MEDS: ondansetron HCL 4 MG/2 ML VIAL IVPUSH ×2 (04:57→11:51)
[2020-09-17 07:25] LABS: MANUAL DIFF FLAG NO
[2020-09-17 07:26] LABS: Basophils Absolute Auto 0.1 X10*3/uL (0.0-0.2); Eosinophils Absolute Auto 0.8 X10*3/uL (0.0-0.4); Eosinophils Percent Auto 11.9 % (0-4); Hematocrit 24.2 % (42-52); Hemoglobin 7.8 g/dl (14.0-18.0); Imm Gran Abs Auto 0.02 X10*3/uL (0.00-0.03); Imm Gran Pct Auto 0.3 % (0.0-0.4); Lymphocytes Absolute Auto 2.1 X10*3/uL (1.2-4.9); Lymphocytes Percent Auto 30.5 % (20-40); Mean Corpuscular HGB Conc 32.2 g/dl (31.0-36.0); Mean Corpuscular Hemoglobin 28.5 pg (27.0-33.0); Mean Corpuscular Volume 88.3 fL (80-98); Mean Platelet Volume 10.1 fL (9.4-12.4); Monocytes Absolute Auto 0.5 X10*3/uL (0.1-1.2); Monocytes Percent Auto 7.6 % (2-11); Neutrophils Absolute Auto 3.3 X10*3/uL (2.0-8.3); Neutrophils Percent Auto 48.7 % (45-73); Platelet Count 234 X10*3/uL (160-400); Red Blood Count 2.74 X10*6/uL (4.60-5.80); White Blood Count 6.8 X10*3/uL (4.8-10.8)
[2020-09-17 07:59] LABS: Anion Gap 14 (12-20); Blood Urea Nitrogen 10 mg/dL (9-16); Calcium 8.3 mg/dL (8.4-10.2); Carbon Dioxide 26 mmol/L (22-29); Chloride 103 mmol/L (96-108); Creatinine Clr Calc Pharmacy 62.9; Estimated Glomerular Filt Rate 56; Glucose Random 85 mg/dL (60-115); Potassium 3.7 mmol/L (3.3-5.1); Sodium 139 mmol/L (135-145)
[2020-09-17 07:59] LABS: Glucose, Whole Blood 117 mg/dL (60-115)
[2020-09-17 08:00] LABS: B Type Natriuretic Peptide 907 pg/mL (<100)
[2020-09-17] MEDS: Docusate Sodium 100 MG CAPSULE 200 MG PO (10:17)
[2020-09-17] MEDS: Furosemide 40 MG/4 ML VIAL IVPUSH ×2 (10:18→20:02)
[2020-09-17] MEDS: Tamsulosin HCL 0.4 MG CAPSULE PO (10:18)
[2020-09-17] MEDS: Aspirin Enteric Coated 81 MG TABLET.DR PO (10:18)
[2020-09-17] MEDS: amLODIPine Besylate 5 MG TABLET PO (10:18)
[2020-09-17] MEDS: Lactulose 20 GM/30 ML SOLUTION PO (11:28)
[2020-09-17 11:37] LABS: Glucose, Whole Blood 123 mg/dL (60-115)
--- NOTE | 2020-09-17 11:54 | PC.NURSE ---
Pt c/o nausea, no active vomiting. medicated per jul.
--- NOTE | 2020-09-17 14:45 | HO.PM.IMPN ---
Subjective Subjective Date of Service: 09/17/20 Interval History: Patient complaining of lower abdominal discomfort with radiation to left leg, trying to avoid narcotic medications, no bowel movement since admit, denies nausea, complaining of poor appetite. ROS General no headache, no dizziness no fever chills. CVS no chest pain, no palpitation. Respiratory no cough, no sob Gastrointestinal no nausea, no vomiting, constipation Physical Exam Vital Signs: Vital Signs: Last Vital Signs Temp 97.8 F 09/17/20 12:04 Pulse 90 09/17/20 12:04 Resp 13 09/17/20 12:04 BP 165/72 H 09/17/20 12:04 Pulse Ox 91 L 09/17/20 12:04 Body Mass Index 32.3 General resting in bed, no acute distress. Neck supple no JVD. CVS regular rate rhythm, Respiratory lungs clear to auscultation, no respiratory distress, no wheeze, no rhonchi. Gastrointestinal abdomen soft, low abdominal discomfort with palpation, bowel sounds audible, midline scar well healed, no guarding , no rigidity. Extremities bilateral edema. Neuro nonfocal , moving all 4 extremity speech clear. Skin no rash Objective Data Current Medications Generic Name Dose Route Start Last Admin Trade Name Freq PRN Reason Stop Dose Admin Acetaminophen 650 mg 09/16/20 16:50 09/17/20 14:13 Acetaminophen 325 Mg Tablet PO 650 mg Q6H PRN Administration Pain, Mild (Pain Scale 1-3) Amlodipine Besylate 5 mg 09/17/20 09:00 09/17/20 10:18 Amlodipine Besylate 5 Mg Tablet PO 5 mg DAILY TESS Administration Protocol Aspirin 81 mg 09/17/20 09:00 09/17/20 10:18 Aspirin Enteric Coated 81 Mg Tablet.Dr PO 81 mg DAILY TESS Administration Atorvastatin Calcium 20 mg 09/17/20 21:00 Atorvastatin Calcium 20 Mg Tablet PO BEDTIME TESS Diphenhydramine HCl 25 mg 09/16/20 17:15 09/17/20 10:19 Diphenhydramine Hcl 50 Mg/Ml Vial IVPUSH 25 mg Q8H TESS Administration Docusate Sodium 200 mg 09/16/20 17:00 09/17/20 10:17 Docusate Sodium 100 Mg Capsule PO 200 mg DAILY TESS Administration Enoxaparin Sodium 40 mg 09/16/20 17:00 09/16/20 18:22 Enoxaparin Sodium 40 Mg/0.4 Ml Syringe SUBCUT 40 mg Q24H TESS Administration Furosemide 40 mg 09/17/20 08:00 09/17/20 10:18 Furosemide 40 Mg/4 Ml Vial IVPUSH 40 mg Q12H TESS Administration Protocol Hydromorphone HCl 0.5 mg 09/16/20 17:13 09/17/20 10:17 Hydromorphone Hcl 0.5 Mg/0.5 Ml Syringe IVPUSH 0.5 mg Q4H PRN Administration Pain, Severe (Pain Scale 7-10) Cefazolin Sodium/Dextrose 2 gm in 50 mls @ 100 mls/hr 09/16/20 20:00 09/17/20 11:28 Ancef IV 100 mls/hr Q8H TESS Administration Insulin Human Lispro 0 unit 09/16/20 21:00 09/17/20 11:29 Insulin Lispro 100 Unit/Ml 3 Ml Vial SUBCUT Not Given QIDACHS [facility] Protocol Omeprazole 20 mg 09/17/20 06:30 09/17/20 04:57 Omeprazole 20 Mg Capsule. PO 20 mg DAILY@0630 TESS Administration Ondansetron HCl 4 mg 09/16/20 16:50 09/17/20 11:51 Ondansetron Hcl 4 Mg/2 Ml Vial IVPUSH 4 mg Q8H PRN Administration Nausea and Vomiting Oxycodone HCl 5 mg 09/16/20 16:50 Oxycodone Hcl Immed Release 5 Mg Tablet PO Q6H PRN Pain, Severe (Pain Scale 7-10) Pharmacy Consult 1 each 09/16/20 14:48 Consult Rx Perform Med Rec MISCELLANE ONCE PRN Consult order Senna 17.2 mg 09/16/20 21:00 09/16/20 20:22 Sennosides 8.6 Mg Tablet PO 17.2 mg BEDTIME TESS Administration Sodium Chloride 3 ml 09/17/20 00:00 09/17/20 10:19 0.9 % Sodium Chloride Flush 3 Ml Syringe IVFLUSH 3 ml QSHIFT TESS Administration Tamsulosin HCl 0.4 mg 09/17/20 09:00 09/17/20 10:18 Tamsulosin Hcl 0.4 Mg Capsule PO 0.4 mg DAILY TESS Administration Labs CBC & Chem 7: 09/17/20 07:17 09/17/20 07:17 Microbiology Microbiology Results: Microbiology 09/16/20 11:36 Blood - Venous Blood Culture - Preliminary No growth after 24 hours. 09/16/20 11:32 Blood - Venous Blood Culture - Preliminary No growth after 24 hours. 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 The patient after his initial surgery, had a left groin abscess that required readmission to [facility] with repeat surgical intervention with placement of vancomycin beads, had repeat washout on September 05. The patient was discharged from [facility] on September 13 on Ancef 2 g t.i.d. The patient evaluated at [facility] on September 14, with similar symptoms of abdominal pain, weakness and intolerance to Ancef that made him sick, but since there were no new findings on CAT scan of the abdomen on September 14, that showed improvement from the prior CAT scan, patient was discharged home. However, he returned with similar symptoms today and noted to have new bilateral pleural effusion, elevated BNP and low albumin. The patient is now being admitted for fluid overload as well as decreased p.o. intake and generalized weakness. 1. Left groin abscess/abdominal pain. Status post aortobifemoral bypass on August 08, subsequently developed left groin abscess, requiring readmission to [facility] with repeat surgical intervention with placement of vancomycin beads currently on IV Ancef 2 g t.i.d., patient tolerating antibiotic , culture from groin grew Staphylococcus Lugdunensis likely patient's symptoms of nausea weakness were related to high-dose Dilaudid Will discuss further antibiotic treatment with ID, currently patient afebrile with normal WBC count and CT abdomen showed no evidence of worsening abscess and no new collection. Will continue oxycodone and IV Dilaudid for lower abdominal pain Will add stool softeners for constipation. 2. Fluid overload. no prior history of coronary artery disease or congestive heart failure. Noted to have a BNP of 1092. Likely fluid overload, multifactorial with low albumin, IV fluid resuscitation during recent hospitalization, will continue IV diuretics 40 b.i.d. follow echocardiogram, patient preferred to use urinal, follow input and output closely, daily weight repeat BNP is trending down, stable electrolytes, normal troponin Further workup depending on findings on echocardiogram. 3. Diabetes mellitus type 2. patient is on insulin and metformin. Due to decreased by mouth intake will hold Lantus and metformin blood sugars stable 123 continue diabetic diet and insulin sliding scale 4. Hypertension. Blood pressure elevated patient Norvasc has been reduced to 5 mg since trev contributing to leg edema, will add lisinopril for better blood pressure control. 5. Obesity. Recommend low-calorie diet and exercise. 6. Deep vein thrombosis prophylaxis. Lovenox subcu. 7. Code status. full code.
--- NOTE | 2020-09-17 14:52 | MHC.CM.PN ---
CM met with patient at the bedside who reports he amb independently and lives with . Patient does have a HCP/ Christina [phone], requested a copy. Discussed discharge plan, home with resumption of svs with [facility]. [facility] IMM addressed with patient. will provide transportation. CM will continue to follow patient for discharge needs.
[2020-09-17 16:17] LABS: Glucose, Whole Blood 137 mg/dL (60-115)
[2020-09-17] MEDS: Morphine Sulfate 4 MG/ML CARTRIDGE IVPUSH (17:19)
[2020-09-17] MEDS: Enoxaparin Sodium 40 MG/0.4 ML SYRINGE SUBCUT (17:19)
[2020-09-17] MEDS: Atorvastatin Calcium 20 MG TABLET PO (20:03)
[2020-09-17] MEDS: Sennosides 8.6 MG TABLET 17.2 MG PO (20:03)
[2020-09-17 20:46] LABS: Glucose, Whole Blood 187 mg/dL (60-115)
[2020-09-17] MEDS: Insulin Lispro 100 UNIT/ML 3 ML VIAL SUBCUT (21:12)
[2020-09-18] VITALS (7 sets, daily range): BP systolic 124–166; BP diastolic 57–91; PULSE 67–78; RESP 18–20; TEMP 36.4–37; O2SAT 94–96
[2020-09-18] MEDS: diphenhydrAMINE HCL 50 MG/ML VIAL 25 MG IVPUSH ×3 (01:26→18:13)
[2020-09-18] MEDS: Melatonin 3 MG TABLET 9 MG PO (01:56)
[2020-09-18] MEDS: Morphine Sulfate 4 MG/ML CARTRIDGE 6 MG IVPUSH ×3 (02:49→20:35)
[2020-09-18] MEDS: ceFAZolin Sodium/Dextrose,Iso 2 GM/50 ML PIGGYBACK IV ×3 (03:59→20:21)
--- NOTE | 2020-09-18 05:12 | PC.NURSE ---
At 1:52 patient had 2 episodes of 3 beats V-tach within 5 minutes. Rachel notified. Again at 5 am patient had a 3 beat V-tach
[2020-09-18] MEDS: Omeprazole 20 MG CAPSULE.DR PO (06:07)
[2020-09-18 07:56] LABS: Anion Gap 16 (12-20); Blood Urea Nitrogen 11 mg/dL (9-16); Calcium 8.1 mg/dL (8.4-10.2); Carbon Dioxide 26 mmol/L (22-29); Chloride 99 mmol/L (96-108); Estimated Glomerular Filt Rate 54; Glucose Random 144 mg/dL (60-115); Potassium 3.4 mmol/L (3.3-5.1); Sodium 138 mmol/L (135-145)
[2020-09-18 07:57] LABS: Glucose, Whole Blood 140 mg/dL (60-115)
[2020-09-18] MEDS: Aspirin Enteric Coated 81 MG TABLET.DR PO (09:50)
[2020-09-18] MEDS: amLODIPine Besylate 5 MG TABLET PO (09:50)
[2020-09-18] MEDS: 0.9 % Sodium Chloride Flush 3 ML SYRINGE IVFLUSH ×2 (09:50→15:17)
[2020-09-18] MEDS: Docusate Sodium 100 MG CAPSULE 200 MG PO (09:51)
[2020-09-18] MEDS: Tamsulosin HCL 0.4 MG CAPSULE PO (09:51)
[2020-09-18 10:02] LABS: Magnesium 1.6 mg/dL (1.6-2.6)
--- NOTE | 2020-09-18 10:17 | P.PNIM_ITS ---
Subjective Subjective Date of Service: 09/18/20 Interval History: Patient feeling better this morning, less lower abdominal and left leg pain, IV morphine is helping with pain, had a normal bowel movement, complaining of mild lightheadedness and weakness when out of bed, tele monitor showed 2 episodes of 3 beat V-tach at 02:00 a.m. and 05:00 a.m. ROS General no headache, no fever, chills. CVS no chest pain, no palpitation. Respiratory no cough, no sob Gastrointestinal no nausea, no vomiting, abdominal pain improving Physical Exam 2 Vital Signs: Vital Signs: Last Vital Signs Temp 98.5 F 09/18/20 07:49 Pulse 67 09/18/20 07:49 Resp 18 09/18/20 07:49 BP 146/72 H 09/18/20 07:49 Pulse Ox 94 09/18/20 07:49 Body Mass Index 32.3 General resting in bed, no acute distress. Neck supple no JVD. CVS regular rate rhythm, Respiratory lungs clear to auscultation, no respiratory distress, no wheeze, no rhonchi. Gastrointestinal abdomen soft, low abdominal discomfort with palpation, bowel sounds audible, midline scar well healed, no guarding , no rigidity. Extremities bilateral edema significantly improved. Neuro nonfocal , moving all 4 extremity speech clear. Skin no rash Objective Data Current Medications Generic Name Dose Route Start Last Admin Trade Name Freq PRN Reason Stop Dose Admin Acetaminophen 650 mg 09/16/20 16:50 09/17/20 14:13 Acetaminophen 325 Mg Tablet PO 650 mg Q6H PRN Administration Pain, Mild (Pain Scale 1-3) Amlodipine Besylate 5 mg 09/17/20 09:00 09/18/20 09:50 Amlodipine Besylate 5 Mg Tablet PO 5 mg DAILY TESS Administration Protocol Ascorbic Acid 1,000 mg 09/18/20 09:00 09/18/20 09:52 Ascorbic Acid 500 Mg Tablet PO Not Given DAILY [facility] Aspirin 81 mg 09/17/20 09:00 09/18/20 09:50 Aspirin Enteric Coated 81 Mg Tablet. PO 81 mg DAILY TESS Administration Atorvastatin Calcium 20 mg 09/17/20 21:00 09/17/20 20:03 Atorvastatin Calcium 20 Mg Tablet PO 20 mg BEDTIME [facility] Administration Bismuth Subsalicylate 262 mg 09/17/20 16:20 Bismuth Subsalicylate Liquid 524 Mg/30 Ml Oral.Susp PO QID PRN Dyspepsia Diphenhydramine HCl 25 mg 09/16/20 17:15 09/18/20 09:50 Diphenhydramine Hcl 50 Mg/Ml Vial IVPUSH 25 mg Q8H [facility] Administration Docusate Sodium 200 mg 09/16/20 17:00 09/18/20 09:51 Docusate Sodium 100 Mg Capsule PO 200 mg DAILY [facility] Administration Enoxaparin Sodium 40 mg 09/16/20 17:00 09/17/20 17:19 Enoxaparin Sodium 40 Mg/0.4 Ml Syringe SUBCUT 40 mg Q24H [facility] Administration Furosemide 40 mg 09/18/20 10:15 Furosemide 40 Mg Tablet PO DAILY [facility] Protocol Cefazolin Sodium/Dextrose 2 gm in 50 mls @ 100 mls/hr 09/16/20 20:00 09/18/20 04:30 Ancef IV Infused Q8H [facility] Infusion Insulin Human Lispro 0 unit 09/16/20 21:00 09/18/20 08:49 Insulin Lispro 100 Unit/Ml 3 Ml Vial SUBCUT Not Given QIDACHS [facility] Protocol Losartan Potassium 25 mg 09/18/20 10:15 Losartan Potassium 25 Mg Tablet PO DAILY [facility] Protocol Morphine Sulfate 6 mg 09/17/20 17:51 09/18/20 02:49 Morphine Sulfate 4 Mg/Ml Cartridge IVPUSH 6 mg Q4H PRN Administration Pain, Severe (Pain Scale 7-10) Omeprazole 20 mg 09/17/20 06:30 09/18/20 06:07 Omeprazole 20 Mg Capsule.Dr PO 20 mg DAILY@0630 [facility] Administration Ondansetron HCl 4 mg 09/16/20 16:50 09/17/20 11:51 Ondansetron Hcl 4 Mg/2 Ml Vial IVPUSH 4 mg Q8H PRN Administration Nausea and Vomiting Oxycodone HCl 5 mg 09/16/20 16:50 Oxycodone Hcl Immed Release 5 Mg Tablet PO Q6H PRN Pain, Severe (Pain Scale 7-10) Pharmacy Consult 1 each 09/16/20 14:48 Consult Rx Perform Med Rec MISCELLANE ONCE PRN Consult order Potassium Chloride 20 meq 09/18/20 10:15 Potassium Chloride Er 20 Meq Tab.Er.Prt PO DAILY [facility] Senna 17.2 mg 09/16/20 21:00 09/17/20 20:03 Sennosides 8.6 Mg Tablet PO 17.2 mg BEDTIME TESS Administration Sodium Chloride 3 ml 09/17/20 00:00 09/18/20 09:50 0.9 % Sodium Chloride Flush 3 Ml Syringe IVFLUSH 3 ml QSHIFT [facility]ESS Administration Tamsulosin HCl 0.4 mg 09/17/20 09:00 09/18/20 09:51 Tamsulosin Hcl 0.4 Mg Capsule PO 0.4 mg DAILY TESS Administration Labs CBC & Chem 7: 09/17/20 07:17 09/18/20 07:13 Microbiology Microbiology Results: Microbiology 09/16/20 11:36 Blood - Venous Blood Culture - Preliminary No growth after 24 hours. 09/16/20 11:32 Blood - Venous Blood Culture - Preliminary No growth after 24 hours. 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 The patient after his initial surgery, had a left groin abscess that required readmission to [facility] with repeat surgical intervention with placement of vancomycin beads, had repeat washout on September 05. The patient was discharged from [facility] on September 13 on Ancef 2 g t.i.d. The patient evaluated at [facility] on September 14, with similar symptoms of abdominal pain, weakness and intolerance to Ancef that made him sick, but since there were no new findings on CAT scan of the abdomen on September 14, that sh owed improvement from the prior CAT scan, patient was discharged home. However, he returned with similar symptoms today and noted to have new bilateral pleural effusion, elevated BNP and low albumin. The patient is now being admitted for fluid overload as well as decreased p.o. intake and generalized weakness. 1. Left groin abscess/abdominal pain. Persistent lower abdominal and left groin and leg pain but improving Status post aortobifemoral bypass on August 08, subsequently developed left groin abscess, requiring readmission to [facility] with repeat surgical intervention with placement of vancomycin beads currently on IV Ancef 2 g t.i.d. for 6 weeks, patient tolerating antibiotic , culture from groin grew Staphylococcus Lugdunensis likely patient's symptoms of nausea weakness were related to high-dose Dilaudid and not due to antibiotic since tolerating them well. Will discuss further antibiotic treatment with ID, currently patient afebrile with normal WBC count , and CT abdomen showed no evidence of worsening abscess and no new collection. Will change IV pain medications to IV morphine and MSIR Continue stool softeners , recommend out of bed to chair. 2. Fluid overload. no prior history of coronary artery disease or congestive heart failure. Noted to have a BNP of 1092. Likely fluid overload, multifactorial with low albumin, IV fluid resuscitation during recent hospitalization Patient responded well to IV diuretics 40 b.i.d. is 3 L negative, follow echocardiogram, repeat BNP , stable electrolytes, normal troponin Further workup depending on findings on echocardiogram. Will change to Lasix 40 mg daily, patient not on home diuretic, follow BNP and echo 3. Diabetes mellitus type 2. patient is on insulin and metformin. Due to decr eased by mouth intake will hold Lantus and metformin blood sugars stable 123 continue diabetic diet and insulin sliding scale 4. Hypertension. Blood pressure elevated patient Norvasc has been reduced to 5 mg since likley contributing to leg edema, will add Cozaar for better blood pressure control. Patient is intolerant of lisinopril, previously was on Olmesartan that was discontinued since he was noted to have low blood pressure. 5. Obesity. Recommend low-calorie diet and exercise, added Ensure t.i.d. due to low albumin. 6. Deep vein thrombosis prophylaxis. Lovenox subcu. 7. Anemia likely due to acute infection, hematocrit remains stable patient declined blood transfusion, follow stool guaiac and CBC 8. Short run of V-tach patient remained asymptomatic will keep potassium above 4 and magnesium around 2, current magnesium 1.6 will add Mag oxide twice daily Code status. full code.
[2020-09-18 11:57] LABS: Glucose, Whole Blood 202 mg/dL (60-115)
[2020-09-18] MEDS: Insulin Lispro 100 UNIT/ML 3 ML VIAL SUBCUT ×3 (12:20→20:36)
[2020-09-18] MEDS: Potassium Chloride ER 20 MEQ TAB.ER.PRT PO (12:21)
[2020-09-18] MEDS: Losartan Potassium 25 MG TABLET PO (12:21)
[2020-09-18] MEDS: Furosemide 40 MG TABLET PO (12:21)
[2020-09-18 13:36] LABS: B Type Natriuretic Peptide 553 pg/mL (<100)
--- NOTE | 2020-09-18 16:00 | CA_ITS ---
Transthoracic Echocardiogram Patient (Last, First, Middle): Caesar Flower J Gender: Male Date of : 1950 Age: 70 Procedure Date: 09/18/2020 Procedure Type: Transthoracic Echocardiogram Location: S3E Height: 177.8 cm Weight: 102.06 kg BSA: 2.19 m2 Heart Rate: bpm BP: 166 / 77 mmHg Accounts Receivable Administrator: Referring MD: Jaziel Denise MD Symptoms: fluid overload r/o CHF Study Quality: Fair ECG Rhythm: Sinus with extra beats Conclusions: - Normal left ventricular size and systolic function. - There is mildly increased left ventricular wall thickness. - E/E prime ratio is between 8 and 15 consistent with indeterminate filling pressures. - Mildly increased right ventricular cavity size. There is normal right ventricular systolic function. - The left atrium is mildly dilated. - There is moderate calcification of the aortic valve. There is no aortic valve stenosis. - Moderately elevated right atrial pressure. Findings Left Ventricle Normal left ventricular size and systolic function. There is mildly increased left ventricular wall thickness. The visually estimated ejection fraction is between 55-60%. There is no evidence of regional wall motion abnormalities. Abnormal diastolic function is noted. Spectral Doppler is indicative of an impaired relaxation filling pattern. E/E prime ratio is between 8 and 15 consistent with indeterminate filling pressures. Right Ventricle Mildly increased right ventricular cavity size. There is normal right ventricular systolic function. Atria The left atrium is mildly dilated. There is no evidence of interatrial shunt by color Doppler. Aortic Valve There is moderate calcification of the aortic valve. There is no aortic valve stenosis. There is no aortic valve regurgitation. Mitral Valve Normal mitral valve structure and function. There is trace mitral valve regurgitation. There is no mitral valve stenosis. Pulmonic Valve The pulmonic valve is likely normal. Tricuspid Valve Moderately elevated right atrial pressure. There is no evidence of pulmonary hypertension. Great Vessels All visible segments of the aorta are normal in size. The visualized portions of the pulmonary artery and branches are normal. Venous The inferior vena cava is dilated and collapses greater than 50% with inspiration. Pericardium/Pleural There is no evidence of pericardial effusion. Prior Study Comparison No prior study available for comparison. Measurements 2D Linear Measurements IVSd: 1.12 0.6-0.9/0.6-1.0 cm LVIDd: 4.93 3.9-5.3/4.2-5.9 cm LVIDd Index: 2.25 2.4-3.2/2.2-3.1 cm/m2 LVIDs: 3.21 2.0-3.6 cm LVPWd: 1.10 0.7-1.1 cm Ao Root: 3.40 2.1-3.5 cm LA Diam: 4.60 2.7-3.8/3.0-4.0 cm LAIDs Index: 2.10 1.5-2.3 cm/m2 LV Mass: 255.53 67-162/88-224 g LV Mass Index: 116.68 43-95/49-115 g/m2 LVOT Diam: 2.00 3.0+(-)1.3 cm 2D Systolic Function EF 4C: 57.80 >55% EF 2C: 56.20 >55% EF BiP: 59.60 >55% Mitral Valve MV Pk E: 0.86 MV PK A: 1.14 MV Decel Time: 194.00 E/A: 0.80 E'Lateral: 9.28 E'Medial: 5.80 E/E' Med: 14.80 E/E' Lat: 9.30 PHT: 57.00 MVA PHT: 3.86 Decel Mccurtain: 4.43 Aortic Valve AoV Pk Mehul: 1.81 AoV Mn Mehul: 1.13 AoV VTI: 0.37 AoV Pk Grad: 13.00 Aov Mn Grad: 6.00 VALERIE Cont.VTI: 1.81 LVOT LVOT Pk Mehul: 1.09 LVOT Mn Mehul: 0.62 LVOT VTI: 0.21 LVOT Pk Grad: 5.00 LVOT Mn Grad: 2.00 LVOT Diam: 2.00 LVOT Area: 3.14 Diastolic Function MV Pk E: 0.86 MV Pk A: 1.14 E/A: 0.80 E'Medial: 5.80 E/E' Med: 14.80 E' Laterial: 9.28 E/E' Lat: 9.30 Tricuspid Valve TR Pk Mehul: 1.90 TR Pk Grad: 14.00 RA Press: 3.00 RVSP: 17.00 Great Vessels Aorta Ao Root-2D: 3.40 2.0-3.7 cm Pulmonary Valve PV Pk Mehul: 1.13 Peak PV Grad: 5.00 Updated in Other Vendor System with Status of Final Bert De Los Santos MD electronically signed on 09/18/2020 2:20:40 PM with status of Final
[2020-09-18 16:34] LABS: Glucose, Whole Blood 181 mg/dL (60-115)
[2020-09-18] MEDS: Enoxaparin Sodium 40 MG/0.4 ML SYRINGE SUBCUT (18:11)
[2020-09-18] MEDS: Magnesium Oxide 400 MG TABLET PO (18:12)
[2020-09-18] MEDS: Sennosides 8.6 MG TABLET 17.2 MG PO (20:21)
[2020-09-18] MEDS: Atorvastatin Calcium 20 MG TABLET PO (20:21)
[2020-09-18 20:25] LABS: Glucose, Whole Blood 243 mg/dL (60-115)
[2020-09-18] MEDS: Acetaminophen 325 MG TABLET 650 MG PO (22:41)
[2020-09-19] VITALS (8 sets, daily range): BP systolic 130–175; BP diastolic 64–83; PULSE 68–84; RESP 16–20; TEMP 36.2–37.2; O2SAT 93–96
[2020-09-19] MEDS: diphenhydrAMINE HCL 50 MG/ML VIAL 25 MG IVPUSH ×4 (01:38→23:35)
[2020-09-19] MEDS: 0.9 % Sodium Chloride Flush 3 ML SYRINGE IVFLUSH ×4 (01:38→23:35)
[2020-09-19] MEDS: ceFAZolin Sodium/Dextrose,Iso 2 GM/50 ML PIGGYBACK IV ×3 (03:46→20:21)
[2020-09-19] MEDS: Omeprazole 20 MG CAPSULE.DR PO (06:04)
[2020-09-19 06:10] LABS: MANUAL DIFF FLAG NO
[2020-09-19 06:25] LABS: Basophils Absolute Auto 0.1 X10*3/uL (0.0-0.2); Basophils Percent Auto 1.2 % (0-2); Eosinophils Percent Auto 12.7 % (0-4); Hematocrit 26.9 % (42-52); Hemoglobin 8.7 g/dl (14.0-18.0); Imm Gran Abs Auto 0.03 X10*3/uL (0.00-0.03); Imm Gran Pct Auto 0.4 % (0.0-0.4); Lymphocytes Absolute Auto 2.9 X10*3/uL (1.2-4.9); Lymphocytes Percent Auto 37.8 % (20-40); Mean Corpuscular HGB Conc 32.3 g/dl (31.0-36.0); Mean Corpuscular Hemoglobin 28.3 pg (27.0-33.0); Mean Corpuscular Volume 87.6 fL (80-98); Mean Platelet Volume 10.3 fL (9.4-12.4); Monocytes Absolute Auto 0.6 X10*3/uL (0.1-1.2); Neutrophils Absolute Auto 3.1 X10*3/uL (2.0-8.3); Neutrophils Percent Auto 39.9 % (45-73); Platelet Count 227 X10*3/uL (160-400); Red Blood Count 3.07 X10*6/uL (4.60-5.80); Red Cell Distribution Width 14.7 % (11.0-16.0); White Blood Count 7.6 X10*3/uL (4.8-10.8)
[2020-09-19 06:43] LABS: Anion Gap 16 (12-20); Blood Urea Nitrogen 10 mg/dL (9-16); Calcium 8.1 mg/dL (8.4-10.2); Carbon Dioxide 27 mmol/L (22-29); Chloride 100 mmol/L (96-108); Creatinine Clr Calc Pharmacy 62.4; Estimated Glomerular Filt Rate 55; Glucose Random 158 mg/dL (60-115); Potassium 3.7 mmol/L (3.3-5.1); Sodium 139 mmol/L (135-145)
[2020-09-19 07:28] LABS: Glucose, Whole Blood 164 mg/dL (60-115)
[2020-09-19] MEDS: Insulin Lispro 100 UNIT/ML 3 ML VIAL SUBCUT ×4 (07:57→20:22)
[2020-09-19] MEDS: Magnesium Oxide 400 MG TABLET PO ×2 (07:57→16:37)
[2020-09-19] MEDS: ondansetron HCL 4 MG/2 ML VIAL IVPUSH (08:05)
[2020-09-19] MEDS: Bismuth Subsalicylate Liquid 524 MG/30 ML ORAL.SUSP 262 MG PO ×3 (09:28→23:38)
[2020-09-19] MEDS: Docusate Sodium 100 MG CAPSULE 200 MG PO (09:39)
[2020-09-19] MEDS: Potassium Chloride ER 20 MEQ TAB.ER.PRT PO (09:39)
[2020-09-19] MEDS: amLODIPine Besylate 5 MG TABLET PO (09:40)
[2020-09-19] MEDS: Tamsulosin HCL 0.4 MG CAPSULE PO (09:40)
[2020-09-19] MEDS: Furosemide 40 MG TABLET PO (09:40)
[2020-09-19] MEDS: Losartan Potassium 25 MG TABLET PO (09:41)
[2020-09-19] MEDS: Aspirin Enteric Coated 81 MG TABLET.DR PO (09:41)
[2020-09-19] MEDS: Ascorbic Acid 500 MG TABLET 1000 MG PO (09:41)
[2020-09-19] MEDS: Morphine Sulfate 4 MG/ML CARTRIDGE 6 MG IVPUSH ×3 (10:19→21:19)
--- NOTE | 2020-09-19 10:56 | MHC.CM.PN ---
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 HE WAS ACTIVE WITH [facility] FOR IV ABX AND PIC LINE SUPPLIES AND LABS SUPPLIES, PATIENT IS ALSO ACTIVE WITH [facility]. MET WITH PATIENT HE THOUGH HE WOULD NOT BE DISCHARGED UNTIL TOMORROW, I REPORTED TO HIM THE THE HOSPITALIST PLANS ON DISCHARGING HIM TODAY AND TO RESUME HIS NURSING WITH [facility] FAXED HISTORY AND PHYSICAL TO [facility] NURSING FAXED TO PHARMACIST THE SCRIPT AND CLINICALS AND D/C INSTRUCTIONS, AND REQUESTED A TIME THEY COULD SEND OUT HIS MEDICATION , HE REPORTED THAT HIS IS HOME AND CAN ACCEPT DELIVERY
--- NOTE | 2020-09-19 11:06 | P.DS_ITS ---
DS: Providers Provider Date of Service: 10/03/20 Date of admission: 09/16/20 16:50 Primary care physician: Unknown Physician Consults: 09/17/20 07:56 Consult to Infectious Diseases Routine Consulting Provider: Hemalatha Carrillo Reason for consultation: groin abscess Has provider been notified: No DS: Diagnosis Discharge Diagnosis (1) Groin abscess: Status: Acute Problem details: \ (2) Fluid overload: Status: Resolved (3) Obesity: Status: Acute (4) Weakness: Status: Resolved (5) Abdominal pain: Status: Resolved (6) HTN (hypertension): Status: Acute (7) T2DM (type 2 diabetes mellitus): Status: Acute (8) HLD (hyperlipidemia): Status: Acute DS: Medications Discharge Medications Home Medications: Home Medications Medication Instructions Recorded Confirmed amlodipine 10 mg tablet 10 mg PO DAILY 04/19/20 09/17/20 aspirin 81 mg tablet,delayed 81 mg PO DAILY 04/19/20 09/17/20 release atorvastatin 20 mg tablet 20 mg PO BEDTIME 04/26/20 09/17/20 Toujeo Max U-300 SoloStar 20 unit SUBCUT BID 09/17/20 09/17/20 acetaminophen 650 mg PO Q6H PRN 09/17/20 09/17/20 ascorbic acid (vitamin C) 1,000 mg PO DAILY 09/17/20 09/17/20 Previous Rx's Medication Instructions Recorded insulin syringe-needle U-100 1 mL #100 ea 03/09/20 27 gauge x 1/2 blood-glucose meter,continuous #1 ea 03/22/20 blood-glucose sensor #3 ea 03/22/20 blood-glucose transmitter #1 ea 03/22/20 blood sugar diagnostic #100 ea 04/26/20 blood-glucose meter #1 ea 04/26/20 omeprazole 20 mg capsule,delayed 20 mg PO DAILY #90 cap 05/19/20 release tamsulosin 0.4 mg capsule 0.4 mg PO DAILY #90 cap 06/19/20 cefazolin in 0.9% sod chloride 100 ml IV Q8H 35 Days ml 09/19/20 DS: Summary Hospital Course Hospital Course: HISTORY OF PRESENTING ILLNESS BY DR. YATES This is a 70-year-old gentleman with past medical history significant for type 2 diabetes mellitus, on insulin; hypertension; hyperlipidemia; and history of hepatitis C. The patient recently underwent aortic bifemoral bypass surgery on August 08, at [facility] and was discharged from their facility on August 13. After being at home, the patient generally feeling weak and on August 31, presented to [facility] due to abdominal pain. A CAT scan of the abdomen and pelvis was obtained in ER that showed fluid tracks around the aorta and the bypass graft on the left leg through the pelvis and into the groin,there was air collection in the fluid consistent with small abscess. The bilateral grafts were patent. There was also mild hydronephrosis of the left kidney with point of obstruction of the ureter as it passes around the left iliac graft. With these abnormal results, the patient was sent back to [facility], where he was admitted from August 31 to September 12. and underwent repeat surgical intervention with placement of vancomycin beads,and was started on IV antibiotics. and subsequently discharged home on PICC line for 6 weeks of IV Ancef. patient returned to [facility] on September 14, with similar complaints of nausea and vomiting after receiving Ancef shots. He also complained of poor appetite and significant nausea, worse soon after receiving the IV push cefazolin. A repeat CAT scan of the abdomen was showing some improvement in the fluid collection, since his CAT scan was better and there was no fever, no chills and no other reason for admission, the patient was discharged home on Dilaudid for abdominal pain as well as Zofran. However, the patient returned back to [facility] today with persistent symptoms of generalized weakness, decreased p.o. intake, persistent nausea, vomiting, constipation, worse feeling after receiving IV Ancef shot that has been given for total 6 weeks, 2 g t.i.d. The patient's repeat CAT scan today once again does not show any worsening of fluid collection, and there is not significant change as compared to the CAT scan findings 2 days ago, but the patient's laboratory data today revealed that the patient's BNP significantly elevated at 1092. His albumin is low at 3 with a total protein of 5.6. His hematocrit is low, but stable around 24.6. There is no leukocytosis. Platelet counts are stable. EKG shows no acute ischemic changes. The patient denies any prior history of coronary artery disease or congestive heart failure. The patient denies any fever, chills, or shortness of breath. He denies any cough, but since the patient is generally weak with worsening BNP, poor by mouth intake and low albumin, he is being admitted to [facility] for continued monitoring and treatment. HOSPITAL COURSE: 70-year-old gentleman with past medical history of diabetes, hypertension, hyperlipidemia, obesity and status post aortobifemoral bypass on August 08, presented to [facility] with nausea, abdominal pain, generalized weakness and constipation. The patient after his initial surgery, had a left groin absc ess that required readmission to [facility] with repeat surgical intervention with placement of vancomycin beads, had repeat washout on September 05. The patient was discharged from [facility] on September 13 on Ancef 2 g t.i.d. The patient evaluated at [facility] on September 14, with similar symptoms of abdominal pain, weakness and intolerance to Ancef that made him sick, but since there were no new findings on CAT scan of the abdomen on September 14, that showed improvement from the prior CAT scan, patient was discharged home. However, he returned with similar symptoms today and noted to have new bilateral pleural effusion, elevated BNP and low albumin. The patient is now being admitted for fluid overload as well as decreased p.o. intake and generalized weakness. 1. 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 for 6 weeks (ending October 23). He was not tolerating IV ancef by [facility] with GI complain and presented to hospital for this. He has continued this antibiotics, however in the form of IV infusion which he seems to be tolerating and will therefore [facility] the [facility]. I have discussed this with the infusion company. 2. Fluid overload. no prior history of coronary artery disease or congestive heart failure. Noted to have a BNP of 1092. Likely fluid overload, multifactorial with low albumin, IV fluid resuscitation during recent hospitalization Patient responded well to IV diuretics 40 b.i.d. is 3 L negative, follow echocardiogram, repeat BNP is 553 , stable electrolytes, normal troponin. Echo shows no wall motion abnormalities, EF 55 to 60 Will discharge wit Lasix 40 daily and may follow up with cardiology on outpatient basis 3. Diabetes mellitus type 2. patient is on insulin and metformin. continue 4. Hypertension. Blood pressure elevated patient Norvasc has been reduced to 5 mg since kathleenley contributing to leg edema, will add Cozaar for better blood pressure control. Patient is intolerant of lisinopril, previously was on Olmesartan that was discontinued since he was noted to have low blood pressure. 5. Obesity. Recommend low-calorie diet and exercise, added Ensure t.i.d. due to low albumin. 6. Deep vein thrombosis prophylaxis. Lovenox subcu. 7. Anemia likely due to acute infection, hematocrit remains stable patient declined blood transfusion, follow stool guaiac and CBC 8. Short run of V-tach patient remained asymptomatic will keep potassium above 4 and magnesium around 2, current magnesium 1.6 will add Mag oxide twice daily Time Spent with Patient Time attestation: Total time spent providing and/or coordinating discharge services: Discharge coordination time: Greater than 30 minutes Physical Exam Vital Signs: Vital Signs: Last Vital Signs Selected Entries 09/20/20 07:55 09/20/20 08:18 Pulse Rate 74 Respiratory Rate 19 Blood Pressure 156/72 H Pulse Oximetry 94 Body Mass Index 32.3 General resting in bed, no acute distress. Neck supple no JVD. CVS regular rate rhythm, Respiratory lungs clear to auscultation, no respiratory distress, no wheeze, no rhonchi. Gastrointestinal abdomen soft, low abdominal discomfort with palpation, bowel sounds audible, midline scar well healed, no guarding , no rigidity. Extremities bilateral edema significantly improved. Neuro nonfocal , moving all 4 extremity speech clear. Skin no rash, thre is a clean surgical incision in left groin sutures in place no pus DS: Data Data Completed and Pending Labs on day of discharge: Laboratory Results - last 24 hr 09/18/20 09/18/20 09/18/20 11:52 12:46 16:09 WBC RBC Hgb Hct MCV MCH MCHC RDW Plt Count MPV Immature Gran % (Auto) Neut % (Auto) Lymph % (Auto) [place] % (Auto) Eos % (Auto) Baso % (Auto) Lymph # (Auto) [place] # (Auto) Eos # (Auto) Baso # (Auto) Abs Immat Gran (auto) Absolute Neuts (auto) Absolute Nucleated RBC Nucleated RBC % (auto) Sodium Potassium Chloride Carbon Dioxide Anion Gap BUN Creatinine Estim Creat Clear Calc Estimated GFR POC Glucose 202 H 181 H Random Glucose Calcium B-Natriuretic Peptide 553 H 09/18/20 09/19/20 09/19/20 20:18 05:54 05:54 WBC 7.6 RBC 3.07 L Hgb 8.7 L Hct 26.9 L MCV 87.6 MCH 28.3 MCHC 32.3 RDW 14.7 Plt Count 227 MPV 10.3 Immature Gran % (Auto) 0.4 Neut % (Auto) 39.9 L Lymph % (Auto) 37.8 [place] % (Auto) 8.0 Eos % (Auto) 12.7 H Baso % (Auto) 1.2 Lymph # (Auto) 2.9 [place] # (Auto) 0.6 Eos # (Auto) 1.0 H Baso # (Auto) 0.1 Abs Immat Gran (auto) 0.03 Absolute Neuts (auto) 3.1 Absolute Nucleated RBC 0.000 Nucleated RBC % (auto) 0.0 Sodium 139 Potassium 3.7 Chloride 100 Carbon Dioxide 27 Anion Gap 16 BUN 10 Creatinine 1.28 Estim Creat Clear Calc 62.4 Estimated GFR 55 POC Glucose 243 H Random Glucose 158 H Calcium 8.1 L B-Natriuretic Peptide 09/19/20 07:19 WBC RBC Hgb Hct MCV MCH MCHC RDW Plt Count MPV Immature Gran % (Auto) Neut % (Auto) Lymph % (Auto) [place] % (Auto) Eos % (Auto) Baso % (Auto) Lymph # (Auto) [place] # (Auto) Eos # (Auto) Baso # (Auto) Abs Immat Gran (auto) Absolute Neuts (auto) Absolute Nucleated RBC Nucleated RBC % (auto) Sodium Potassium Chloride Carbon Dioxide Anion Gap BUN Creatinine Estim Creat Clear Calc Estimated GFR POC Glucose 164 H Random Glucose Calcium B-Natriuretic Peptide Preliminary micro results at discharge 09/16/20 11:36 Blood Culture - Preliminary Blood - Venous No growth after 48 hours. 09/16/20 11:32 Blood Culture - Preliminary Blood - Venous No growth after 48 hours. Discharge Plan Discharge Anticipated Discharge Date/Time: 09/20/20 10:57 Patient Disposition: Home Health Service Discharge Diagnosis: groin abscess Referrals: [facility] [Other] - 1 Day (RESUMPTION OF SUPPLIER OF YOUR IV ANTIBIOTIC AND PIC LINES ASSOCIATED SUPPLIES) [facility] [Other] - 1 Day (RESUMPTION OF SERVICES FOR NURSING FOR IV ABX/PIC LINE CARE LABS ) Physician,Unknown [Primary Care Provider] - 1 Week Discharge Medications: New cefazolin in 0.9% sod chloride 2 gram/100 mL solution 100 ml IV Q8H 35 Days RF: 0 furosemide 40 mg Tablet 40 mg PO DAILY Qty: 30 RF: 0 magnesium oxide 400 mg (241.3 mg magnesium) Tablet 400 mg PO BIDPC Qty: 60 RF: 0 oxycodone 5 mg tablet 5 mg PO Q8H PRN (Reason: pain (scale score 7-10)) Qty: 14 RF: 0 morphine 15 mg tablet 15 mg PO Q8H PRN (Reason: pain (scale score 7-10)) Qty: 14 RF: 0 Continued (DME) insulin syringe-needle U-100 [BD Insulin Syringe] 1 mL 27 gauge x 1/2 syringe See Rx Instructions .ROUTE .MEDSUPPLY Qty: 100 RF: 0 (DME) Dexcom G6 Sensor Device See Rx Instructions .ROUTE .MEDSUPPLY Qty: 3 RF: 11 (DME) Dexcom G6 Transmitter Device See Rx Instructions .ROUTE .MEDSUPPLY Qty: 1 RF: 11 (DME) Dexcom G6 Health Promotion Officer Misc See Rx Instructions .ROUTE .MEDSUPPLY Qty: 1 RF: 0 aspirin [Adult Aspirin Regimen] 81 mg tablet,delayed release (DR/EC) 81 mg PO DAILY RF: 0 tamsulosin 0.4 mg capsule 0.4 mg PO DAILY Qty: 90 RF: 3 ascorbic acid (vitamin C) 1,000 mg Tablet 1,000 mg PO DAILY RF: 0 acetaminophen 325 mg Tablet 650 mg PO Q6H PRN (Reason: Pain (Scale Score 1-3)) RF: 0 Toujeo Max U-300 SoloStar 300 unit/mL (3 mL) insulin pen 20 unit subcut BID RF: 0 omeprazole 20 mg capsule,delayed release(DR/EC) 20 mg PO DAILY Qty: 90 RF: 3 (DME) FreeStyle Lite Strips Strip See Rx Instructions .ROUTE .MEDSUPPLY Qty: 100 RF: 11 (DME) blood-glucose meter [FreeStyle [place] Lite] Kit See Rx Instructions .ROUTE .MEDSUPPLY Qty: 1 RF: 0 atorvastatin 20 mg tablet 20 mg PO BEDTIME RF: 0 Discontinued amlodipine 10 mg tablet 10 mg PO DAILY RF: 0 cefazolin in sterile water 2 gram/20 mL Syringe 20 ml IV Q8H RF: 0 No Action lorazepam [Ativan] 1 mg tablet 1 mg PO BEDTIME PRN (Reason: sleep) Qty: 10 RF: 0 gabapentin 300 mg capsule 300 mg PO TID RF: 0 ondansetron 4 mg tablet,disintegrating 4 mg PO DAILY PRN (Reason: nausea and vomiting) 30 Days Qty: 30 RF: 1 insulin lispro [Humalog KwikPen Insulin] 100 unit/mL insulin pen 10 unit subcut TID Qty: 15 RF: 6 amlodipine 10 mg tablet 10 mg PO DAILY Qty: 30 RF: 0 Discharge Orders: Discharge Order (Routine); Ordered 09/19/20 Ordered By: Pablo Kelly Diet: advance to usual diet and diabetic diet Activity on Discharge: As tolerated Stand Alone Forms: Patient Portal Discharge page Care Plan Goals: Treatment of groin abscess Health Concerns: groin abscess Plan of Treatment: IV Cefazolin 2 gram q8 until October 23, 2020 Assessment: Groin abscess that needs IV antibiotics Discharge Date/Time: 09/20/20 12:50
[2020-09-19 11:23] LABS: Glucose, Whole Blood 168 mg/dL (60-115)
--- NOTE | 2020-09-19 13:46 | P.CONCA_ITS ---
History of Present Illness History of Present Illness Date of Service: 09/19/20 Requesting physician: Pablo Kelly Chief complaint: Fluid overload Narrative: 70-year-old gentleman who we have been asked to assess for volume overload and congestive heart failure. He has background peripheral vascular disease underwent aortobifem bypass surgery at [facility]. After surgery was not feeling well and had poor appetite and was feeling weight lousy. Subsequent to that he got admitted to [facility] where CT scan of his abdomen showed concern for an abscess. He was sent to [facility] where he underwent exploratory surgery and was discharged back home after couple of weeks of admission. He again started feeling the same and came to [facility]. He has been on antibiotics. He is feeling very nauseous right now. He is saying he is somewhat short of breath. He has no chest discomfort. He says before his surgery he had no chest pain or shortness of breath. He was given Lasix which improved lower extremity edema at this point. Blood pressure is elevated. Review of Systems Review of Systems: Nausea PMFSH Past Medical History Medical History BPH (benign prostatic hyperplasia) Cough Diabetic retinopathy Goiter HLD (hyperlipidemia) HTN (hypertension) PVD (peripheral vascular disease) T2DM (type 2 diabetes mellitus) Vitamin D deficiency Family History Family History Father Diabetes Mother Diabetes Leukemia Skin cancer Alzheimers disease Dementia Surgical History Surgical History H/O [id number] bypass Hx of basal cell carcinoma excision Social History Social History Household Members: Spouse Housing: House Do you presently have visiting nurse or other home services: Yes Alcohol intake: never Smoking Status: Never smoker Packs Per Day: 3 Years Smoked: 20 Use of substances other than those prescribed or required for medical reasons: No Currently Displaying Signs/Symptoms of Drug Intoxication Withdrawal: No Have you been hit, kicked, punched, or otherwise hurt by someone within the past year? If so, by whom?: No Do you feel safe in your current relationship?: Yes Is there a partner from a previous relationship who is making you feel unsafe now?: No Are you made to feel afraid or neglected: No Advance Directives: No Advance Directives Information Provided: Yes Do you have thoughts of harming others: None Do you have a plan to hurt others: No Plan Recently lost weight without trying: Yes service: Yes Current occupational status: retired Meds Allergies Allergy/AdvReac Type Severity Reaction Status Date / Time No Known Allergies Allergy Unknown UNKNOWN Verified 09/14/20 11:44 Active Medications: Current Medications Generic Name Dose Route Start Last Admin Trade Name Freq PRN Reason Stop Dose Admin Acetaminophen 650 mg 09/16/20 16:50 09/18/20 22:41 Acetaminophen 325 Mg Tablet PO 650 mg Q6H PRN Administration Pain, Mild (Pain Scale 1-3) Amlodipine Besylate 5 mg 09/17/20 09:00 09/19/20 09:40 Amlodipine Besylate 5 Mg Tablet PO 5 mg DAILY TESS Administration Protocol Ascorbic Acid 1,000 mg 09/18/20 09:00 09/19/20 09:41 Ascorbic Acid 500 Mg Tablet PO 1,000 mg DAILY TESS Administration Aspirin 81 mg 09/17/20 09:00 09/19/20 09:41 Aspirin Enteric Coated 81 Mg Tablet.Dr PO 81 mg DAILY TESS Administration Atorvastatin Calcium 20 mg 09/17/20 21:00 09/18/20 20:21 Atorvastatin Calcium 20 Mg Tablet PO 20 mg BEDTIME TESS Administration Bismuth Subsalicylate 262 mg 09/17/20 16:20 09/19/20 13:05 Bismuth Subsalicylate Liquid 524 Mg/30 Ml Oral.Susp PO 262 mg QID PRN Administration Dyspepsia Diphenhydramine HCl 25 mg 09/16/20 17:15 09/19/20 10:06 Diphenhydramine Hcl 50 Mg/Ml Vial IVPUSH 25 mg Q8H TESS Administration Docusate Sodium 200 mg 09/16/20 17:00 09/19/20 09:39 Docusate Sodium 100 Mg Capsule PO 200 mg DAILY TESS Administration Enoxaparin Sodium 40 mg 09/16/20 17:00 09/18/20 18:11 Enoxaparin Sodium 40 Mg/0.4 Ml Syringe SUBCUT 40 mg Q24H TESS Administration Furosemide 40 mg 09/18/20 10:15 09/19/20 09:40 Furosemide 40 Mg Tablet PO 40 mg DAILY TESS Administration Protocol Cefazolin Sodium/Dextrose 2 gm in 50 mls @ 100 mls/hr 09/16/20 20:00 09/19/20 12:34 Ancef IV Infused Q8H TESS Infusion Insulin Human Lispro 0 unit 09/16/20 21:00 09/19/20 11:59 Insulin Lispro 100 Unit/Ml 3 Ml Vial SUBCUT 2 unit QIDACHS [facility] Administration Protocol Losartan Potassium 25 mg 09/18/20 10:15 09/19/20 09:41 Losartan Potassium 25 Mg Tablet PO 25 mg DAILY TESS Administration Protocol Magnesium Oxide 400 mg 09/18/20 17:30 09/19/20 07:57 Magnesium Oxide 400 Mg Tablet PO 400 mg BIDPC TESS Administration Morphine Sulfate 6 mg 09/17/20 17:51 09/19/20 10:19 Morphine Sulfate 4 Mg/Ml Cartridge IVPUSH 6 mg Q4H PRN Administration Pain, Severe (Pain Scale 7-10) Morphine Sulfate 15 mg 09/18/20 10:37 Morphine Sulfate Immed Release 15 Mg Tablet PO Q4H PRN Pain, Moderate (Pain Scale 4-6 Omeprazole 20 mg 09/17/20 06:30 09/19/20 06:04 Omeprazole 20 Mg Capsule.Dr PO 20 mg DAILY@0630 [facility] Administration Ondansetron HCl 4 mg 09/16/20 16:50 09/19/20 08:05 Ondansetron Hcl 4 Mg/2 Ml Vial IVPUSH 4 mg Q8H PRN Administration Nausea and Vomiting Pharmacy Consult 1 each 09/16/20 14:48 Consult Rx Perform Med Rec MISCELLANE ONCE PRN Consult order Potassium Chloride 20 meq 09/18/20 10:15 09/19/20 09:39 Potassium Chloride Er 20 Meq Tab.Er.Prt PO 20 meq DAILY TESS Administration Senna 17.2 mg 09/16/20 21:00 09/18/20 20:21 Sennosides 8.6 Mg Tablet PO 17.2 mg BEDTIME TESS Administration Sodium Chloride 3 ml 09/17/20 00:00 09/19/20 08:04 0.9 % Sodium Chloride Flush 3 Ml Syringe IVFLUSH 3 ml QSHIFT [facility] Administration Tamsulosin HCl 0.4 mg 09/17/20 09:00 09/19/20 09:40 Tamsulosin Hcl 0.4 Mg Capsule PO 0.4 mg DAILY TESS Administration Home Medications Medication Instructions Recorded Confirmed Last Taken Type aspirin 81 mg tablet,delayed 81 mg PO DAILY 04/19/20 09/17/20 Unknown History release atorvastatin 20 mg tablet 20 mg PO BEDTIME 04/26/20 09/17/20 Unknown History Toujeo Max U-300 SoloStar 20 unit SUBCUT BID 09/17/20 09/17/20 Unknown History acetaminophen 650 mg PO Q6H PRN 09/17/20 09/17/20 Unknown History ascorbic acid (vitamin C) 1,000 mg PO DAILY 09/17/20 09/17/20 Unknown History Physical Exam Vital Signs: Vital Signs: Last Vital Signs Temp 99.0 F 09/19/20 11:45 Pulse 73 09/19/20 11:45 Resp 16 09/19/20 11:45 BP 175/83 H 09/19/20 11:45 Pulse Ox 93 09/19/20 11:45 Body Mass Index 32.3 GENERAL APPEARANCE: in no acute distress, well developed. HEENT: unremarkable. HEAD: normocephalic, atraumatic. NECK/THYROID: Left carotid bruit, no jugular venous distention. SKIN: no suspicious lesions, warm and dry. HEART: no murmurs, regular rate and rhythm, S1, S2 normal. LUNGS: clear to auscultation bilaterally. ABDOMEN: Midline surgical scar, bowel sounds present, soft, nontender, nondistended. EXTREMITIES: no edema. PERIPHERAL PULSES: equal. NEUROLOGIC: nonfocal, alert and oriented. Results Labs and Meds Result diagrams: 09/19/20 05:54 09/19/20 05:54 Lab results: Laboratory Results - last 24 hr 09/18/20 09/18/20 09/19/20 16:09 20:18 05:54 WBC 7.6 RBC 3.07 L Hgb 8.7 L Hct 26.9 L MCV 87.6 MCH 28.3 MCHC 32.3 RDW 14.7 Plt Count 227 MPV 10.3 Immature Gran % (Auto) 0.4 Neut % (Auto) 39.9 L Lymph % (Auto) 37.8 [place] % (Auto) 8.0 Eos % (Auto) 12.7 H Baso % (Auto) 1.2 Lymph # (Auto) 2.9 [place] # (Auto) 0.6 Eos # (Auto) 1.0 H Baso # (Auto) 0.1 Abs Immat Gran (auto) 0.03 Absolute Neuts (auto) 3.1 Absolute Nucleated RBC 0.000 Nucleated RBC % (auto) 0.0 Sodium Potassium Chloride Carbon Dioxide Anion Gap BUN Creatinine Estim Creat Clear Calc Estimated GFR POC Glucose 181 H 243 H Random Glucose Calcium 09/19/20 09/19/20 09/19/20 05:54 07:19 11:06 WBC RBC Hgb Hct MCV MCH MCHC RDW Plt Count MPV Immature Gran % (Auto) Neut % (Auto) Lymph % (Auto) [place] % (Auto) Eos % (Auto) Baso % (Auto) Lymph # (Auto) [place] # (Auto) Eos # (Auto) Baso # (Auto) Abs Immat Gran (auto) Absolute Neuts (auto) Absolute Nucleated RBC Nucleated RBC % (auto) Sodium 139 Potassium 3.7 Chloride 100 Carbon Dioxide 27 Anion Gap 16 BUN 10 Creatinine 1.28 Estim Creat Clear Calc 62.4 Estimated GFR 55 POC Glucose 164 H 168 H Random Glucose 158 H Calcium 8.1 L Assessment and Plan (1) HTN (hypertension): Qualifiers: Hypertension type: unspecified Qualified Code(s): I10 - Essential (primary) hypertension Status: Acute (2) Fluid overload: Status: Acute (3) PVD (peripheral vascular disease): Status: Acute Pleasant 70-year-old gentleman who recently had admission to [facility] and [facility] for aortobifem graft surgery as well as infection with abscess formation. He was given volume resuscitation for infection and it looks like he had some peripheral edema and volume overload. He has been diuresed at this stage and looks good. I think once a day 40 mg Lasix should be good enough for maintaining his volume status. He has a left carotid bruit and I think he should get carotid ultrasound as outpatient. Blood pressure is elevated and recommend increasing the amlodipine to 10 mg once a day. He can follow up with us as outpatient and we can arrange carotid ultrasound and further workup. Thank you for allowing me to participate in the care of your patient. Please feel free to contact me if you have any questions.
--- NOTE | 2020-09-19 14:08 | P.CNID_ITS ---
History of Present Illness Data of Consult Service Date: 09/18/20 Requesting physician: Jaziel Denise Primary Care Provider: Unknown Physician HPI Reason for consult: groin abscess He presents to hospital with nausea and vomiting worsening over last week. He had bilateral aortobifemoral graft operation at [facility] on 08/08 and postoperative infection He has had repeat surgery He is now on 6 week course of Kefzol and has Vancomycin beads He feels better with hydration Review of Systems Review of Systems: Yes all other systems are reviewed and are negative [facility] Past Medical History Medical History BPH (benign prostatic hyperplasia) Cough Diabetic retinopathy Goiter HLD (hyperlipidemia) HTN (hypertension) PVD (peripheral vascular disease) T2DM (type 2 diabetes mellitus) Vitamin D deficiency Family History Family History Father Diabetes Mother Diabetes Leukemia Skin cancer Alzheimers disease Dementia Family history: reviewed and not pertinent Surgical History Surgical History H/O [id number] bypass Hx of basal cell carcinoma excision Social History Social History Household Members: Spouse Housing: House Do you presently have visiting nurse or other home services: Yes Alcohol intake: never Smoking Status: Never smoker Packs Per Day: 3 Years Smoked: 20 Use of substances other than those prescribed or required for medical reasons: No Currently Displaying Signs/Symptoms of Drug Intoxication Withdrawal: No Have you been hit, kicked, punched, or otherwise hurt by someone within the past year? If so, by whom?: No Do you feel safe in your current relationship?: Yes Is there a partner from a previous relationship who is making you feel unsafe now?: No Are you made to feel afraid or neglected: No Advance Directives: No Advance Directives Information Provided: Yes Do you have thoughts of harming others: None Do you have a plan to hurt others: No Plan Recently lost weight without trying: Yes service: Yes Current occupational status: retired Meds Allergies Allergy/AdvReac Type Severity Reaction Status Date / Time No Known Allergies Allergy Unknown UNKNOWN Verified 09/14/20 11:44 Active Medications: Current Medications Generic Name Dose Route Start Last Admin Trade Name Bentleyq PRN Reason Stop Dose Admin Acetaminophen 650 mg 09/16/20 16:50 09/18/20 22:41 Acetaminophen 325 Mg Tablet PO 650 mg Q6H PRN Administration Pain, Mild (Pain Scale 1-3) Amlodipine Besylate 5 mg 09/17/20 09:00 09/19/20 09:40 Amlodipine Besylate 5 Mg Tablet PO 5 mg DAILY TESS Administration Protocol Ascorbic Acid 1,000 mg 09/18/20 09:00 09/19/20 09:41 Ascorbic Acid 500 Mg Tablet PO 1,000 mg DAILY TESS Administration Aspirin 81 mg 09/17/20 09:00 09/19/20 09:41 Aspirin Enteric Coated 81 Mg Tablet.Dr PO 81 mg DAILY TESS Administration Atorvastatin Calcium 20 mg 09/17/20 21:00 09/18/20 20:21 Atorvastatin Calcium 20 Mg Tablet PO 20 mg BEDTIME TESS Administration Bismuth Subsalicylate 262 mg 09/17/20 16:20 09/19/20 13:05 Bismuth Subsalicylate Liquid 524 Mg/30 Ml Oral.Susp PO 262 mg QID PRN Administration Dyspepsia Diphenhydramine HCl 25 mg 09/16/20 17:15 09/19/20 10:06 Diphenhydramine Hcl 50 Mg/Ml Vial IVPUSH 25 mg Q8H TESS Administration Docusate Sodium 200 mg 09/16/20 17:00 09/19/20 09:39 Docusate Sodium 100 Mg Capsule PO 200 mg DAILY TESS Administration Enoxaparin Sodium 40 mg 09/16/20 17:00 09/18/20 18:11 Enoxaparin Sodium 40 Mg/0.4 Ml Syringe SUBCUT 40 mg Q24H TESS Administration Furosemide 40 mg 09/18/20 10:15 09/19/20 09:40 Furosemide 40 Mg Tablet PO 40 mg DAILY TESS Administration Protocol Cefazolin Sodium/Dextrose 2 gm in 50 mls @ 100 mls/hr 09/16/20 20:00 09/19/20 12:34 Ancef IV Infused Q8H TESS Infusion Insulin Human Lispro 0 unit 09/16/20 21:00 09/19/20 11:59 Insulin Lispro 100 Unit/Ml 3 Ml Vial SUBCUT 2 unit QIDACHS [facility] Administration Protocol Losartan Potassium 25 mg 09/18/20 10:15 09/19/20 09:41 Losartan Potassium 25 Mg Tablet PO 25 mg DAILY TESS Administration Protocol Magnesium Oxide 400 mg 09/18/20 17:30 09/19/20 07:57 Magnesium Oxide 400 Mg Tablet PO 400 mg BIDPC TESS Administration Morphine Sulfate 6 mg 09/17/20 17:51 09/19/20 10:19 Morphine Sulfate 4 Mg/Ml Cartridge IVPUSH 6 mg Q4H PRN Administration Pain, Severe (Pain Scale 7-10) Morphine Sulfate 15 mg 09/18/20 10:37 Morphine Sulfate Immed Release 15 Mg Tablet PO Q4H PRN Pain, Moderate (Pain Scale 4-6 Omeprazole 20 mg 09/17/20 06:30 09/19/20 06:04 Omeprazole 20 Mg Capsule. PO 20 mg DAILY@0630 TESS Administration Ondansetron HCl 4 mg 09/16/20 16:50 09/19/20 08:05 Ondansetron Hcl 4 Mg/2 Ml Vial IVPUSH 4 mg Q8H PRN Administration Nausea and Vomiting Pharmacy Consult 1 each 09/16/20 14:48 Consult Rx Perform Med Rec MISCELLANE ONCE PRN Consult order Potassium Chloride 20 meq 09/18/20 10:15 09/19/20 09:39 Potassium Chloride Er 20 Meq Tab.Er.Prt PO 20 meq DAILY TESS Administration Senna 17.2 mg 09/16/20 21:00 09/18/20 20:21 Sennosides 8.6 Mg Tablet PO 17.2 mg BEDTIME TESS Administration Sodium Chloride 3 ml 09/17/20 00:00 09/19/20 08:04 0.9 % Sodium Chloride Flush 3 Ml Syringe IVFLUSH 3 ml QSHIFT TESS Administration Tamsulosin HCl 0.4 mg 09/17/20 09:00 09/19/20 09:40 Tamsulosin Hcl 0.4 Mg Capsule PO 0.4 mg DAILY TESS Administration Home Medications Medication Instructions Recorded Confirmed Last Taken Type aspirin 81 mg tablet,delayed 81 mg PO DAILY 04/19/20 09/17/20 Unknown History release atorvastatin 20 mg tablet 20 mg PO BEDTIME 04/26/20 09/17/20 Unknown History Toujeo Max U-300 SoloStar 20 unit SUBCUT BID 09/17/20 09/17/20 Unknown History acetaminophen 650 mg PO Q6H PRN 09/17/20 09/17/20 Unknown History ascorbic acid (vitamin C) 1,000 mg PO DAILY 09/17/20 09/17/20 Unknown History Physical Exam Vital Signs: Vital Signs: Last Vital Signs Temp 99.0 F 09/19/20 11:45 Pulse 73 09/19/20 11:45 Resp 16 09/19/20 11:45 BP 175/83 H 09/19/20 11:45 Pulse Ox 93 09/19/20 11:45 Body Mass Index 32.3 Const: General: cooperative HENMT: Head: Yes normal to inspection Mouth: Normal oral and palatal mucosa present Eyes: General: appearance normal, both eyes and all related structures Resp: Effort & Inspection: normal respiratory effort Cardio: Rate: regular rate Rhythm: regular rhythm GI: Palpation (GI): Soft to palpation and nontender Skin: General skin exam: no rashes or lesions noted Extrem: Other: clear right groin area,left area bandage slight leaking Results Labs CBC & Chem 7: 09/19/20 05:54 09/19/20 05:54 Labs: Short CBC 09/19/20 Range/Units 05:54 WBC 7.6 (4.8-10.8) X10*3/uL Hgb 8.7 L (14.0-18.0) g/dl Hct 26.9 L (42-52) % Plt Count 227 (160-400) X10*3/uL BMP 09/19/20 05:54 Sodium 139 Potassium 3.7 Chloride 100 Carbon Dioxide 27 BUN 10 Creatinine 1.28 Calcium 8.1 L Microbiology Microbiology Results: Microbiology 09/16/20 11:36 Blood - Venous Blood Culture - Preliminary No growth after 48 hours. 09/16/20 11:32 Blood - Venous Blood Culture - Preliminary No growth after 48 hours. Assessment and Plan (1) Groin abscess: Problem details: He has groin abscess He has been on Kefzol and has no more nausea with hydration Status: Acute Would give IV Kefzol total six weeks per prior facility
[2020-09-19 16:23] LABS: Glucose, Whole Blood 211 mg/dL (60-115)
[2020-09-19] MEDS: Enoxaparin Sodium 40 MG/0.4 ML SYRINGE SUBCUT (16:36)
--- NOTE | 2020-09-19 17:43 | P.PNIM_ITS ---
Subjective Subjective Date of Service: 09/19/20 Interval History: f/u groin abscess, still some nausea and vomitting ROS General no headache, no fever, chills. CVS no chest pain, no palpitation. Respiratory no cough, no sob Gastrointestinal no nausea, no vomiting, abdominal pain improving Review of Systems Nausea Physical Exam Vital Signs: Vital Signs: Last Vital Signs Temp 97.6 F 09/19/20 15:28 Pulse 84 09/19/20 15:28 Resp 16 09/19/20 15:28 BP 130/70 09/19/20 15:28 Pulse Ox 96 09/19/20 15:28 Body Mass Index 32.3 Objective Data Current Medications Generic Name Dose Route Start Last Admin Trade Name Freq PRN Reason Stop Dose Admin Acetaminophen 650 mg 09/16/20 16:50 09/18/20 22:41 Acetaminophen 325 Mg Tablet PO 650 mg Q6H PRN Administration Pain, Mild (Pain Scale 1-3) Amlodipine Besylate 5 mg 09/17/20 09:00 09/19/20 09:40 Amlodipine Besylate 5 Mg Tablet PO 5 mg DAILY [facility] Administration Protocol Ascorbic Acid 1,000 mg 09/18/20 09:00 09/19/20 09:41 Ascorbic Acid 500 Mg Tablet PO 1,000 mg DAILY TESS Administration Aspirin 81 mg 09/17/20 09:00 09/19/20 09:41 Aspirin Enteric Coated 81 Mg Tablet.Dr PO 81 mg DAILY TESS Administration Atorvastatin Calcium 20 mg 09/17/20 21:00 09/18/20 20:21 Atorvastatin Calcium 20 Mg Tablet PO 20 mg BEDTIME TESS Administration Bismuth Subsalicylate 262 mg 09/17/20 16:20 09/19/20 13:05 Bismuth Subsalicylate Liquid 524 Mg/30 Ml Oral.Susp PO 262 mg QID PRN Administration Dyspepsia Diphenhydramine HCl 25 mg 09/16/20 17:15 09/19/20 16:36 Diphenhydramine Hcl 50 Mg/Ml Vial IVPUSH 25 mg Q8H TESS Administration Docusate Sodium 200 mg 09/16/20 17:00 09/19/20 09:39 Docusate Sodium 100 Mg Capsule PO 200 mg DAILY TESS Administration Enoxaparin Sodium 40 mg 09/16/20 17:00 09/19/20 16:36 Enoxaparin Sodium 40 Mg/0.4 Ml Syringe SUBCUT 40 mg Q24H TESS Administration Furosemide 40 mg 09/18/20 10:15 09/19/20 09:40 Furosemide 40 Mg Tablet PO 40 mg DAILY TESS Administration Protocol Cefazolin Sodium/Dextrose 2 gm in 50 mls @ 100 mls/hr 09/16/20 20:00 09/19/20 12:34 Ancef IV Infused Q8H TESS Infusion Insulin Human Lispro 0 unit 09/16/20 21:00 09/19/20 16:36 Insulin Lispro 100 Unit/Ml 3 Ml Vial SUBCUT 4 unit QIDACHS [facility] Administration Protocol Losartan Potassium 25 mg 09/18/20 10:15 09/19/20 09:41 Losartan Potassium 25 Mg Tablet PO 25 mg DAILY TESS Administration Protocol Magnesium Oxide 400 mg 09/18/20 17:30 09/19/20 16:37 Magnesium Oxide 400 Mg Tablet PO 400 mg BIDPC TESS Administration Morphine Sulfate 6 mg 09/17/20 17:51 09/19/20 16:36 Morphine Sulfate 4 Mg/Ml Cartridge IVPUSH 6 mg Q4H PRN Administration Pain, Severe (Pain Scale 7-10) Morphine Sulfate 15 mg 09/18/20 10:37 Morphine Sulfate Immed Release 15 Mg Tablet PO Q4H PRN Pain, Moderate (Pain Scale 4-6 Omeprazole 20 mg 09/17/20 06:30 09/19/20 06:04 Omeprazole 20 Mg Capsule.Dr PO 20 mg DAILY@0630 [facility] Administration Ondansetron HCl 4 mg 09/16/20 16:50 09/19/20 08:05 Ondansetron Hcl 4 Mg/2 Ml Vial IVPUSH 4 mg Q8H PRN Administration Nausea and Vomiting Pharmacy Consult 1 each 09/16/20 14:48 Consult Rx Perform Med Rec MISCELLANE ONCE PRN Consult order Potassium Chloride 20 meq 09/18/20 10:15 09/19/20 09:39 Potassium Chloride Er 20 Meq Tab.Er.Prt PO 20 meq DAILY [facility] Administration Senna 17.2 mg 09/16/20 21:00 09/18/20 20:21 Sennosides 8.6 Mg Tablet PO 17.2 mg BEDTIME TESS Administration Sodium Chloride 3 ml 09/17/20 00:00 09/19/20 16:36 0.9 % Sodium Chloride Flush 3 Ml Syringe IVFLUSH 3 ml QSHIFT TESS Administration Tamsulosin HCl 0.4 mg 09/17/20 09:00 09/19/20 09:40 Tamsulosin Hcl 0.4 Mg Capsule PO 0.4 mg DAILY TESS Administration Labs CBC & Chem 7: 09/19/20 05:54 09/19/20 05:54 Microbiology Microbiology Results: Microbiology 09/16/20 11:36 Blood - Venous Blood Culture - Preliminary No growth after 48 hours. 09/16/20 11:32 Blood - Venous Blood Culture - Preliminary No growth after 48 hours. Assessment and Plan (1) Groin abscess: Problem details: \ Status: Acute (2) Fluid overload: Status: Acute (3) Obesity: Status: Acute (4) Weakness: Status: Acute (5) Abdominal pain: Status: Acute (6) HTN (hypertension): Status: Acute (7) T2DM (type 2 diabetes mellitus): Status: Acute (8) HLD (hyperlipidemia): Status: Acute Assessment and Plan: 70-year-old gentleman with past medical history of diabetes, hypertension, hyperlipidemia, obesity and status post aortobifemoral bypass on August 08, presented to [facility] with nausea, abdominal pain, generalized weakness and constipation. The patient after his initial surgery, had a left groin abscess that required readmission to [facility] with repeat surgical intervention with placement of vancomycin beads, had repeat washout on September 05. The patient was discharged from [facility] on September 13 on Ancef 2 g t.i.d. The patient evaluated at [facility] on September 14, with similar symptoms of abdominal pain, weakness and intolerance to Ancef that made him sick, but since there were no new findings on CAT scan of the abdomen on September 14, that showed improvement from the prior CAT scan, patient was discharged home. However, he returned with similar symptoms today and noted to have new bilateral pleural effusion, elevated BNP and low albumin. The patient is now being admitted for fluid overload as well as decreased p.o. intake and generalized weakness. 1. Left groin abscess/abdominal pain-IV Kefzol 2. Fluid overload. liklely from IVF, BNP has come down with Lasix, Echo shows normal EF, dilated atrial which juan carlos e in line with fluid overload. 3. Diabetes mellitus type 2. patient is on insulin and metformin. Due to decreased by mouth intake will hold Lantus and metformin blood sugars stable 123 continue diabetic diet and insulin sliding scale 4. Hypertension. Blood pressure elevated patient Norvasc has been reduced to 5 mg since rtev contributing to leg edema, will add Cozaar for better blood pressure control. Patient is intolerant of lisinopril, previously was on Olmesartan that was discontinued since he was noted to have low blood pressure. 5. Obesity--advise weight loss by diet watch and excersise if can tolerate 6. Deep vein thrombosis prophylaxis. Lovenox subcu. 7. Anemia likely due to acute infection, hematocrit remains stable patient declined blood transfusion, follow stool guaiac and CBC 8. Short run of V-tach patient remained asymptomatic will keep potassium above 4 and magnesium around 2, current magnesium 1.6 will add Mag oxide twice daily Code status. full code. Discharge tomorrow
[2020-09-19 20:19] LABS: Glucose, Whole Blood 181 mg/dL (60-115)
[2020-09-19] MEDS: Sennosides 8.6 MG TABLET 17.2 MG PO (20:21)
[2020-09-19] MEDS: Atorvastatin Calcium 20 MG TABLET PO (20:21)
[2020-09-20 04:00] VITALS: BP 155/79; PULSE 75; RESP 20; TEMP 36.9; O2SAT 96
[2020-09-20] MEDS: ondansetron HCL 4 MG/2 ML VIAL IVPUSH (04:35)
[2020-09-20] MEDS: Morphine Sulfate 4 MG/ML CARTRIDGE 6 MG IVPUSH (04:35)
[2020-09-20] MEDS: ceFAZolin Sodium/Dextrose,Iso 2 GM/50 ML PIGGYBACK IV (04:36)
[2020-09-20] MEDS: Omeprazole 20 MG CAPSULE.DR PO (05:07)
[2020-09-20] MEDS: Bismuth Subsalicylate Liquid 524 MG/30 ML ORAL.SUSP 262 MG PO (05:09)
[2020-09-20 07:55] VITALS: BP 156/72; PULSE 74; RESP 19; TEMP 36.8; O2SAT 94
[2020-09-20 08:08] LABS: Glucose, Whole Blood 166 mg/dL (60-115)
[2020-09-20] MEDS: Insulin Lispro 100 UNIT/ML 3 ML VIAL SUBCUT ×2 (08:14→12:03)
[2020-09-20] MEDS: Potassium Chloride ER 20 MEQ TAB.ER.PRT PO (08:15)
[2020-09-20] MEDS: Docusate Sodium 100 MG CAPSULE 200 MG PO (08:15)
[2020-09-20] MEDS: Ascorbic Acid 500 MG TABLET 1000 MG PO (08:16)
[2020-09-20] MEDS: Furosemide 40 MG TABLET PO (08:16)
[2020-09-20] MEDS: Magnesium Oxide 400 MG TABLET PO (08:16)
[2020-09-20 08:17] VITALS: BP 156/72; PULSE 74
[2020-09-20] MEDS: amLODIPine Besylate 5 MG TABLET PO (08:17)
[2020-09-20] MEDS: Tamsulosin HCL 0.4 MG CAPSULE PO (08:17)
[2020-09-20 08:18] VITALS: BP 156/72; PULSE 74
[2020-09-20] MEDS: Losartan Potassium 25 MG TABLET PO (08:18)
[2020-09-20] MEDS: Aspirin Enteric Coated 81 MG TABLET.DR PO (08:18)
[2020-09-20] MEDS: diphenhydrAMINE HCL 50 MG/ML VIAL 25 MG IVPUSH (08:19)
[2020-09-20] MEDS: 0.9 % Sodium Chloride Flush 3 ML SYRINGE IVFLUSH (08:19)
--- NOTE | 2020-09-20 09:18 | MHC.CM.PN ---
NURSE PAINT TINTER NOTE ELECTRONIC MEDICAL RECORD REVIEWED . PATIENT RECEIVED HIS 4AM IV ANTIBIOTIC NEXT DUE AT 12 NOON [facility] TO DELIVER ,MEDICATIONS AND ALL RELATED SUPPLIES FRO ABC,LABS AND PIC LINE DRESSING CHANGES, THEY WILL DELIVER THIS AM BEFORE 12 NOON WHEN [facility] WILL BE OUT TO TEACH BOTH PATIENT AND HIS THE IV ABX DIAL A FLOW . ALL LABS AND FURTTURE ORDERS WILL BE SENT TO PATIENTS INFECTIOUS PHYSICIAN AT [facility] DR SAILAJA BAIRD PER [place] [facility] [phone] I CALLED [facility] AT [place] TO CONFIRM THQT ALL DISCHARGE PAPERWORK WAS COMPLETE AND THAT THE MEDICATION WOULD BE DELIVERED TO THE HOME BEFORE 12 NOON. THIS WAS INFORMED TO THE HOSPITALSIT AND STAFF NURSE AND PATIENT [facility] UPDATE GIVEN TO THEM WITH D/C INSTRUTIONS AND START TIME FOR NRUSING TRANSPORTATION FAMILY
[2020-09-20 11:16] VITALS: BP 157/69; PULSE 74; RESP 18; TEMP 37; O2SAT 94
[2020-09-20 11:51] LABS: Glucose, Whole Blood 164 mg/dL (60-115)
== END 2020-09-20 12:50 | disposition home health service (06) | DRG 863 ==
LOC: HO.ED 14:49 → HO.EDOVER 17:02 → HO.S3 09-17 12:10
PROVIDERS: Admitting Provider Hospitalist; Emergency Provider Emergency Medicine; Visit Provider Internal Medicine
DX: T81.41XA Infection following a procedure, superficial incisional surgical site, initial encounter (principal); L02.214 Cutaneous abscess of groin; I47.2 Ventricular tachycardia; N13.1 Hydronephrosis with ureteral stricture, not elsewhere classified; D64.9 Anemia, unspecified; E87.70 Fluid overload, unspecified; E11.51 Type 2 diabetes mellitus with diabetic peripheral angiopathy without gangrene; I10 Essential (primary) hypertension; B95.7 Other staphylococcus as the cause of diseases classified elsewhere; E78.5 Hyperlipidemia, unspecified; E66.9 Obesity, unspecified; Z68.32 Body mass index [BMI] 32.0-32.9, adult; Z20.822 Contact with and (suspected) exposure to COVID-19; Z79.82 Long term (current) use of aspirin; Z79.899 Other long term (current) drug therapy
CPT/HCPCS: 36415; 71045; 71046; 74177; 80048; 80053; 80076; 81003; 82947; 83540; 83605; 83690; 83735; 83880; 84484; 85025; 85610; 85652; 85730; 86140; 87040; 87635; 93005; 93306; 96365; 96375; 99284; 99285; J0690; J1170; J1200; J1650; J1940; J2270; J2405; J2765; Q9967

== ENCOUNTER 2020-09-29 17:24 | Emergency (ER) | payer MEDICARE, SELFPAY ==
--- NOTE | ~2020-09-29 | CT_ITS ---
EXAMINATION: CT ABDOMEN AND PELVIS WITH CONTRAST CLINICAL INFORMATION: Left groin site pain. Concern for abscess. Postop. COMPARISON: CT scan abdomen pelvis 09/16/2020 TECHNIQUE: Multidetector volumetric images were obtained from the superior aspect of the liver through the pubic symphysis following administration 85 mL of Omnipaque 350 intravenous contrast. Sagittal and coronal reformatted images were obtained on the technologist's workstation. Oral contrast: No This CT examination was performed using dose optimization techniques as appropriate, variously including the following: *Automated exposure control *Adjustment of mA and/or kV according to patient size (this includes techniques or standardized protocols for targeted exams where dose is matched to indication/reason for exam; i.e. extremities or head) *Use of iterative reconstruction technique DLP: 783 mGy-cm FINDINGS: LUNG BASES: The visualized lung bases are unremarkable. LIVER, GALLBLADDER, AND BILIARY TREE: The liver is normal in size, shape, and attenuation. No focal hepatic lesion or biliary ductal dilatation is present. Small calcified gallstone. No edema around the gallbladder or bile duct dilatation. PANCREAS: Pancreas is atrophic. There is dilatation of the pancreatic duct. Numerous calcifications of pancreas from chronic pancreatitis. No acute inflammation. No pancreatic mass. SPLEEN: Unremarkable. ADRENAL GLANDS: Unremarkable. KIDNEYS AND URETERS: The kidneys are normal in size, shape, and attenuation. No hydronephrosis, hydroureter, or calculi seen. No perinephric stranding. BLADDER: Unremarkable. GASTROINTESTINAL TRACT: No acute abnormality. There is no bowel wall thickening /edema. There is no bowel obstruction. There is a moderate to large volume of stool in the colon. The appendix is normal . The small bowel loops are unremarkable. The stomach is normal. There is no hiatal hernia. ABDOMINAL WALL: No significant hernia is appreciated. LYMPH NODES: Normal. ABDOMINAL WALL/VASCULAR: Aortic bifemoral bypass. Small volume of fluid around the aortic and femoral graft and in the subcutaneous tissues in the groin bilateral. There is a fluid collection measuring 4 x 3 x 2 cm in the right subcutaneous tissue this is simple fluid, density measurement of 8 Hounsfield units. There is no abscess. No air in the soft tissue. Compared to the prior CAT scan of 09/16/2020 there is not been substantial change. PELVIC VISCERA: Prostate measures 5 cm transverse. OSSEOUS STRUCTURES: Multilevel degenerative spondylosis of the spine. CT/CT abdomen pelvis w con IMPRESSION: 1. Aortobifemoral bypass. Postoperative small volume of fluid around the graft down into the groin. There is a small fluid collection in the right groin. There is no abscess. No change in appearance since prior CAT scan 09/16/2020. 2. Cholelithiasis. 3. Chronic pancreatitis. No acute change of pancreas.
--- NOTE | ~2020-09-29 | XR_ITS ---
EXAMINATION: XR CHEST CLINICAL INFORMATION: Chest pain. COMPARISON: 09/16/2020 portable chest. TECHNIQUE: Frontal view of the chest was obtained. FINDINGS: Support devices: A right-sided PICC is seen with tip terminating in superior vena cava. No significant abnormality is noted involving the heart, lungs, mediastinum, bony thorax or soft tissues. XR/XR chest 1V IMPRESSION: No acute cardiopulmonary process. Pulmonary markings have improved.
--- NOTE | 2020-09-29 17:35 | ECG_ITS ---
Test Reason : CHEST PAIN Blood Pressure : / mmHG Vent. Rate : 077 BPM Atrial Rate : 077 BPM P-R Int : 134 ms QRS Dur : 086 ms QT Int : 408 ms P-R-T Axes : 074 018 069 degrees QTc Int : 461 ms Sinus rhythm with occasional , and consecutive Premature ventricular complexes Abnormal ECG No previous ECGs available Referred By: Generic ED Physician Electronically Signed By:YOU HOLLOWAY MD
[2020-09-29 18:25] VITALS: BP 178/99; PULSE 74; RESP 18; TEMP 36.4; O2SAT 99; BMI 32.3
--- NOTE | 2020-09-29 20:06 | ED_ITS ---
HPI - General Adult General Chief complaint: General Medical Stated complaint: SOB Time Seen by Provider: 09/29/20 20:06 Source: patient Mode of arrival: ambulatory Limitations: no limitations History of Present Illness HPI narrative: 70 yo male with DM, HTN, HPL. s/p aortic bi fem bypass on 08/08 in [facility] since then has not felt well recurrent nausea, abdominal pain and weakness since initial surgery, he has had a left groin abscess requiring repeat surgical intervention as well as Ancef 2G TID and placement of vancomycin beads had repeat washout on 09/05 sent home from [facility] on 09/12 - seen in ED on 09/[address] scan of the abdomen was negative this time comes back again for for pain in the surgical suture line area for last few days. No pus discharge no redness around the suture line no fever/ chills Related Data Home Medications Medication Instructions Recorded Confirmed aspirin 81 mg tablet,delayed 81 mg PO DAILY 04/19/20 09/28/20 release atorvastatin 20 mg tablet 20 mg PO BEDTIME 04/26/20 09/28/20 Toujeo Max U-300 SoloStar 20 unit SUBCUT BID 09/17/20 09/28/20 acetaminophen 650 mg PO Q6H PRN 09/17/20 09/28/20 ascorbic acid (vitamin C) 1,000 mg PO DAILY 09/17/20 09/28/20 gabapentin 300 mg capsule 300 mg PO TID 09/28/20 09/28/20 Previous Rx's Medication Instructions Recorded insulin syringe-needle U-100 1 mL #100 ea 03/09/20 27 gauge x 1/2 blood-glucose meter,continuous #1 ea 03/22/20 blood-glucose sensor #3 ea 03/22/20 blood-glucose transmitter #1 ea 03/22/20 blood sugar diagnostic #100 ea 04/26/20 blood-glucose meter #1 ea 04/26/20 omeprazole 20 mg capsule,delayed 20 mg PO DAILY #90 cap 05/19/20 release tamsulosin 0.4 mg capsule 0.4 mg PO DAILY #90 cap 06/19/20 cefazolin in 0.9% sod chloride 100 ml IV Q8H 35 Days ml 09/19/20 furosemide 40 mg PO DAILY #30 tab 09/19/20 magnesium oxide 400 mg PO BIDPC #60 tab 04/20/21 morphine 15 mg PO Q8H PRN #14 tab 09/20/20 oxycodone 5 mg PO Q8H PRN #14 tab 09/20/20 amlodipine 10 mg tablet 10 mg PO DAILY #30 tab 09/28/20 insulin lispro 100 unit/mL 10 unit SUBCUT TID #15 ml 09/28/20 subcutaneous pen ondansetron 4 mg disintegrating 4 mg PO DAILY PRN 30 Days #30 tab 09/28/20 tablet lorazepam [Ativan] 1 mg PO BEDTIME PRN #10 tab 09/30/20 Allergies Allergy/AdvReac Type Severity Reaction Status Date / Time No Known Allergies Allergy Unknown UNKNOWN Verified 09/29/20 18:24 Review of Systems Review of Systems: Constitutional : No Weight loss, No Fever, No Chills ENT/Mouth : No sore throat, No Rhinorrhea Eyes: No Eye Pain, No Swelling Cardiovascular : No Chest Pain, no palpitations Respiratory : No Cough, No Sputum, no shortness of breath Gastrointestinal : no Nausea, No Vomiting, No Diarrhea, No abdominal Pain, no black stools Genitourinary : No Dysuria, No Urinary Frequency Musculoskeletal : No joint pain, No Myalgias, No Joint Swelling Skin : No Skin Lesions, No rash Neuro : No Weakness, No Numbness, No Dizziness, No Headache Psych : No Anxiety/Panic, No Depression Heme/Lymph: No Bruising, No Lymphadenopathy Endocrine : No Polyuria, No Polydipsia All other systems reviewed and are negative [facility] Past Medical History Medical History BPH (benign prostatic hyperplasia) Chronic anemia Cough Diabetic retinopathy Goiter HLD (hyperlipidemia) HTN (hypertension) PVD (peripheral vascular disease) T2DM (type 2 diabetes mellitus) Vitamin D deficiency Surgical History H/O [id number] bypass Hx of basal cell carcinoma excision S/P aorto-bifemoral bypass surgery Family History Family History Father Diabetes Mother Diabetes Leukemia Skin cancer Alzheimers disease Dementia Social History Social History Household Members: Spouse Housing: House Alcohol intake: never Smoking Status: Never smoker Packs Per Day: 3 Years Smoked: 20 Smoked in Last 30 Days: No Use of substances other than those prescribed or required for medical reasons: No Any prior treatment program specific to substance use: No Advance Directives: No Advance Directives Information Provided: Yes service: Yes Current occupational status: retired Physical Exam Vital Signs: Vital Signs: Last Vital Signs Temp 98.3 F 09/30/20 00:00 Pulse 67 09/30/20 00:00 Resp 18 09/30/20 00:00 BP 160/70 H 09/30/20 00:00 Pulse Ox 97 09/30/20 00:00 Body Mass Index 32.3 Appearance: Alert. Oriented X3. No acute distress. Eyes: PERRLA, No Nystagmus ENT: Pharynx normal. Oral Mucosa moist Neck: Normal inspection. Neck supple. CVS: Normal heart rate and rhythm. Pulses normal. Respiratory: No respiratory distress. Equal air entry bilateral, no wheezing/rales/rhonchi Abdomen: Soft slight tenderness at the left groin surgical scar area, no redness no pus discharge no significant swelling Bowel sounds are present, no mass palpable, no CVA tenderness Skin: Skin warm and dry. Normal skin color. Normal skin turgor. Extremities: No lower extremity edema. No calf tenderness Neuro: Oriented X 3. No motor deficit. No sensory deficit.No cerebellar signs , cranial nerves II-XII intact Medical Decision Making MDM Narrative Medical decision making narrative: Patient postop aortic bi femoral bypass with slight fluid collection with no leukocytosis no fever or chills on Kefzol IV at home, patient came with for increased pain left groin area without any cellulitic changes workup showed normal WBC count normal procalcitonin and CRP, initial lactic acid was slightly elevated 2.6 repeat after IV hydration was 1.4 CT scan was done which showed similar collection of fluid on the right side not on the left groin area where patient complaining of pain, fluid was seen in previous CT scans similar to today , without any signs of inflammation/abscess formation at this time does not seem to be abscess developing at the stent area. Patient advised to continue his IV antibiotic and follow with his surgeon. Blood cultures were drawn Medical Records Medical records reviewed: Yes I reviewed the patient's medical records. Lab Data Lab results reviewed: Yes I reviewed the patient's lab results. Result diagrams: 09/29/20 20:44 09/29/20 21:24 Labs: Lab Results 09/29/20 09/29/20 09/29/20 Range/Units 20:44 20:44 20:44 WBC 7.5 (4.8-10.8) X10*3/uL RBC 3.20 L (4.60-5.80) X10*6/uL Hgb 9.2 L (14.0-18.0) g/dl Hct 28.2 L (42-52) % MCV 88.1 (80-98) fL MCH 28.8 (27.0-33.0) pg MCHC 32.6 (31.0-36.0) g/dl RDW 14.2 (11.0-16.0) % Plt Count 194 (160-400) X10*3/uL MPV 11.3 (9.4-12.4) fL Immature Gran % (Auto) 0.3 (0.0-0.4) % Neut % (Auto) 55.7 (45-73) % Lymph % (Auto) 28.1 (20-40) % [place] % (Auto) 8.5 (2-11) % Eos % (Auto) 6.5 H (0-4) % Baso % (Auto) 0.9 (0-2) % Lymph # (Auto) 2.1 (1.2-4.9) X10*3/uL [place] # (Auto) 0.6 (0.1-1.2) X10*3/uL Eos # (Auto) 0.5 H (0.0-0.4) X10*3/uL Baso # (Auto) 0.1 (0.0-0.2) X10*3/uL Abs Immat Gran (auto) 0.02 (0.00-0.03) X10*3/uL Absolute Neuts (auto) 4.2 (2.0-8.3) X10*3/uL Absolute Nucleated RBC 0.000 (0.0-0.012) X10*3/uL Nucleated RBC % (auto) 0.0 (0.0-0.2) /100WBC PT (10.8-13.0) SEC INR (0.9-1.1) APTT (24.1-38.0) SEC Sodium (135-145) mmol/L Potassium (3.3-5.1) mmol/L Chloride (96-108) mmol/L Carbon Dioxide (22-29) mmol/L Anion Gap (12-20) BUN (9-16) mg/dL Creatinine (0.5-1.4) mg/dL Estim Creat Clear Calc Estimated GFR Random Glucose (60-115) mg/dL Lactic Acid (0.5-2.0) mmol/L Lactic Acid Fup @ 2Hr (0.5-2.0) mmol/L Calcium (8.4-10.2) mg/dL Total Bilirubin 0.3 (0.0-1.0) mg/dL Direct Bilirubin < 0.2 (0.0-0.5) mg/dL AST 21 D (5-37) U/L ALT < 6 (0-40) U/L Alkaline Phosphatase 68 (39-117) U/L Troponin I High Sens 24.7 (<3.5-35.0) ng/L C-Reactive Protein 0.04 (< or = 0.50) mg/dL Total Protein 6.9 D (6.5-8.0) g/dL Albumin 3.6 (3.5-5.0) g/dL Lipase 5 L (8-78) U/L Procalcitonin ng/mL 09/29/20 09/29/20 09/29/20 Range/Units 20:44 20:44 21:24 WBC (4.8-10.8) X10*3/uL RBC (4.60-5.80) X10*6/uL Hgb (14.0-18.0) g/dl Hct (42-52) % MCV (80-98) fL MCH (27.0-33.0) pg MCHC (31.0-36.0) g/dl RDW (11.0-16.0) % Plt Count (160-400) X10*3/uL MPV (9.4-12.4) fL Immature Gran % (Auto) (0.0-0.4) % Neut % (Auto) (45-73) % Lymph % (Auto) (20-40) % [place] % (Auto) (2-11) % Eos % (Auto) (0-4) % Baso % (Auto) (0-2) % Lymph # (Auto) (1.2-4.9) X10*3/uL [place] # (Auto) (0.1-1.2) X10*3/uL Eos # (Auto) (0.0-0.4) X10*3/uL Baso # (Auto) (0.0-0.2) X10*3/uL Abs Immat Gran (auto) (0.00-0.03) X10*3/uL Absolute Neuts (auto) (2.0-8.3) X10*3/uL Absolute Nucleated RBC (0.0-0.012) X10*3/uL Nucleated RBC % (auto) (0.0-0.2) /100WBC PT 12.8 (10.8-13.0) SEC INR 1.1 (0.9-1.1) APTT 30.7 D (24.1-38.0) SEC Sodium 136 (135-145) mmol/L Potassium 4.1 (3.3-5.1) mmol/L Chloride 101 (96-108) mmol/L Carbon Dioxide 22 (22-29) mmol/L Anion Gap 17 (12-20) BUN 16 D (9-16) mg/dL Creatinine 1.20 (0.5-1.4) mg/dL Estim Creat Clear Calc 66.6 Estimated GFR 60 Random Glucose 333 H D (60-115) mg/dL Lactic Acid 2.6 H* (0.5-2.0) mmol/L Lactic Acid Fup @ 2Hr (0.5-2.0) mmol/L Calcium 8.8 D (8.4-10.2) mg/dL Total Bilirubin (0.0-1.0) mg/dL Direct Bilirubin (0.0-0.5) mg/dL AST (5-37) U/L ALT (0-40) U/L Alkaline Phosphatase (39-117) U/L Troponin I High Sens (<3.5-35.0) ng/L C-Reactive Protein (< or = 0.50) mg/dL Total Protein (6.5-8.0) g/dL Albumin (3.5-5.0) g/dL Lipase (8-78) U/L Procalcitonin ng/mL 09/30/20 09/30/20 Range/Units 00:01 00:01 WBC (4.8-10.8) X10*3/uL RBC (4.60-5.80) X10*6/uL Hgb (14.0-18.0) g/dl Hct (42-52) % MCV (80-98) fL MCH (27.0-33.0) pg MCHC (31.0-36.0) g/dl RDW (11.0-16.0) % Plt Count (160-400) X10*3/uL MPV (9.4-12.4) fL Immature Gran % (Auto) (0.0-0.4) % Neut % (Auto) (45-73) % Lymph % (Auto) (20-40) % [place] % (Auto) (2-11) % Eos % (Auto) (0-4) % Baso % (Auto) (0-2) % Lymph # (Auto) (1.2-4.9) X10*3/uL [place] # (Auto) (0.1-1.2) X10*3/uL Eos # (Auto) (0.0-0.4) X10*3/uL Baso # (Auto) (0.0-0.2) X10*3/uL Abs Immat Gran (auto) (0.00-0.03) X10*3/uL Absolute Neuts (auto) (2.0-8.3) X10*3/uL Absolute Nucleated RBC (0.0-0.012) X10*3/uL Nucleated RBC % (auto) (0.0-0.2) /100WBC PT (10.8-13.0) SEC INR (0.9-1.1) APTT (24.1-38.0) SEC Sodium (135-145) mmol/L Potassium (3.3-5.1) mmol/L Chloride (96-108) mmol/L Carbon Dioxide (22-29) mmol/L Anion Gap (12-20) BUN (9-16) mg/dL Creatinine (0.5-1.4) mg/dL Estim Creat Clear Calc Estimated GFR Random Glucose (60-115) mg/dL Lactic Acid (0.5-2.0) mmol/L Lactic Acid Fup @ 2Hr 1.4 (0.5-2.0) mmol/L Calcium (8.4-10.2) mg/dL Total Bilirubin (0.0-1.0) mg/dL Direct Bilirubin (0.0-0.5) mg/dL AST (5-37) U/L ALT (0-40) U/L Alkaline Phosphatase (39-117) U/L Troponin I High Sens (<3.5-35.0) ng/L C-Reactive Protein (< or = 0.50) mg/dL Total Protein (6.5-8.0) g/dL Albumin (3.5-5.0) g/dL Lipase (8-78) U/L Procalcitonin 0.05 ng/mL Imaging Data CT scan - abdomen: Attestation: I personally reviewed and interpreted this imaging study as follows: Radiologist's impression: rdering Physician: Marcin Bhakta MD Date of Service: 09/29/20 Procedure(s): CT abdomen pelvis w con Accession Number(s): [id number] cc: Marcin Bhakta MD~ EXAMINATION: CT ABDOMEN AND PELVIS WITH CONTRAST CLINICAL INFORMATION: Left groin site pain. Concern for abscess. Postop. COMPARISON: CT scan abdomen pelvis 09/16/2020 TECHNIQUE: Multidetector volumetric images were obtained from the superior aspect of the liver through the pubic symphysis following administration 85 mL of Omnipaque 350 intravenous contrast. Sagittal and coronal reformatted images were obtained on the technologist's workstation. Oral contrast: No This CT examination was performed using dose optimization techniques as appropriate, variously including the following: *Automated exposure control *Adjustment of mA and/or kV according to patient size (this includes techniques or standardized protocols for targeted exams where dose is matched to indication/reason for exam; i.e. extremities or head) *Use of iterative reconstruction technique DLP: 783 mGy-cm FINDINGS: LUNG BASES: The visualized lung bases are unremarkable. LIVER, GALLBLADDER, AND BILIARY TREE: The liver is normal in size, shape, and attenuation. No focal hepatic lesion or biliary ductal dilatation is present. Small calcified gallstone. No edema around the gallbladder or bile duct dilatation. PANCREAS: Pancreas is atrophic. There is dilatation of the pancreatic duct. Numerous calcifications of pancreas from chronic pancreatitis. No acute inflammation. No pancreatic mass. SPLEEN: Unremarkable. ADRENAL GLANDS: Unremarkable. KIDNEYS AND URETERS: The kidneys are normal in size, shape, and attenuation. No hydronephrosis, hydroureter, or calculi seen. No perinephric stranding. BLADDER: Unremarkable. GASTROINTESTINAL TRACT: No acute abnormality. There is no bowel wall thickening /edema. There is no bowel obstruction. There is a moderate to large volume of stool in the colon. The appendix is normal . The small bowel loops are unremarkable. The stomach is normal. There is no hiatal hernia. ABDOMINAL WALL: No significant hernia is appreciated. LYMPH NODES: Normal. ABDOMINAL WALL/VASCULAR: Aortic bifemoral bypass. Small volume of fluid around the aortic and femoral graft and in the subcutaneous tissues in the groin bilateral. There is a fluid collection measuring 4 x 3 x 2 cm in the right subcutaneous tissue this is simple fluid, density measurement of 8 Hounsfield units. There is no abscess. No air in the soft tissue. Compared to the prior CAT scan of 09/16/2020 there is not been substantial change. PELVIC VISCERA: Prostate measures 5 cm transverse. OSSEOUS STRUCTURES: Multilevel degenerative spondylosis of the spine. CT/CT abdomen pelvis w con IMPRESSION: 1. Aortobifemoral bypass. Postoperative small volume of fluid around the graft down into the groin. There is a small fluid collection in the right groin. There is no abscess. No change in appearance since prior CAT scan 09/16/2020. 2. Cholelithiasis. 3. Chronic pancreatitis. No acute change of pancreas. Discharge Plan Discharge Clinical Impression: Postoperative abdominal pain Patient Disposition: Home, Self-Care Instructions: Pain Management After Surgery (DC) Additional Instructions: Continue to take pain medication and antibiotics as prescribed by your surgeon Ativan to relax and sleep Report to ER/PCP if high fever chills not feeling good or severe abdominal pain Prescriptions: New lorazepam [Ativan] 1 mg tablet 1 mg PO BEDTIME PRN (Reason: sleep) Qty: 10 RF: 0 No Action (DME) insulin syringe-needle U-100 [BD Insulin Syringe] 1 mL 27 gauge x 1/2 syringe See Rx Instructions .ROUTE .MEDSUPPLY Qty: 100 RF: 0 (DME) Dexcom G6 Sensor Device See Rx Instructions .ROUTE .MEDSUPPLY Qty: 3 RF: 11 (DME) Dexcom G6 Transmitter Device See Rx Instructions .ROUTE .MEDSUPPLY Qty: 1 RF: 11 (DME) 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 See Rx Instructions .ROUTE .MEDSUPPLY Qty: 1 RF: 0 aspirin [Adult Aspirin Regimen] 81 mg tablet,delayed release (DR/EC) 81 mg PO DAILY RF: 0 tamsulosin 0.4 mg capsule 0.4 mg PO DAILY Qty: 90 RF: 3 ascorbic acid (vitamin C) 1,000 mg Tablet 1,000 mg PO DAILY RF: 0 acetaminophen 325 mg Tablet 650 mg PO Q6H PRN (Reason: Pain (Scale Score 1-3)) RF: 0 Toujeo Max U-300 SoloStar 300 unit/mL (3 mL) insulin pen 20 unit subcut BID RF: 0 cefazolin in 0.9% sod chloride 2 gram/100 mL solution 100 ml IV Q8H 35 Days RF: 0 furosemide 40 mg Tablet 40 mg PO DAILY Qty: 30 RF: 0 magnesium oxide 400 mg (241.3 mg magnesium) Tablet 400 mg PO BIDPC Qty: 60 RF: 0 oxycodone 5 mg tablet 5 mg PO Q8H PRN (Reason: pain (scale score 7-10)) Qty: 14 RF: 0 morphine 15 mg tablet 15 mg PO Q8H PRN (Reason: pain (scale score 7-10)) Qty: 14 RF: 0 gabapentin 300 mg capsule 300 mg PO TID RF: 0 ondansetron 4 mg tablet,disintegrating 4 mg PO DAILY PRN (Reason: nausea and vomiting) 30 Days Qty: 30 RF: 1 insulin lispro [Humalog KwikPen Insulin] 100 unit/mL insulin pen 10 unit subcut TID Qty: 15 RF: 6 amlodipine 10 mg tablet 10 mg PO DAILY Qty: 30 RF: 0 omeprazole 20 mg capsule,delayed release(DR/EC) 20 mg PO DAILY Qty: 90 RF: 3 (DME) FreeStyle Lite Strips Strip See Rx Instructions .ROUTE .MEDSUPPLY Qty: 100 RF: 11 (DME) blood-glucose meter [FreeStyle [place] Lite] Kit See Rx Instructions .ROUTE .MEDSUPPLY Qty: 1 RF: 0 atorvastatin 20 mg tablet 20 mg PO BEDTIME RF: 0
[2020-09-29 20:54] LABS: MANUAL DIFF FLAG NO
[2020-09-29 20:56] LABS: Basophils Absolute Auto 0.1 X10*3/uL (0.0-0.2); Basophils Percent Auto 0.9 % (0-2); Eosinophils Absolute Auto 0.5 X10*3/uL (0.0-0.4); Eosinophils Percent Auto 6.5 % (0-4); Hematocrit 28.2 % (42-52); Hemoglobin 9.2 g/dl (14.0-18.0); Imm Gran Abs Auto 0.02 X10*3/uL (0.00-0.03); Imm Gran Pct Auto 0.3 % (0.0-0.4); Lymphocytes Absolute Auto 2.1 X10*3/uL (1.2-4.9); Lymphocytes Percent Auto 28.1 % (20-40); Mean Corpuscular HGB Conc 32.6 g/dl (31.0-36.0); Mean Corpuscular Hemoglobin 28.8 pg (27.0-33.0); Mean Corpuscular Volume 88.1 fL (80-98); Mean Platelet Volume 11.3 fL (9.4-12.4); Monocytes Absolute Auto 0.6 X10*3/uL (0.1-1.2); Monocytes Percent Auto 8.5 % (2-11); Neutrophils Absolute Auto 4.2 X10*3/uL (2.0-8.3); Neutrophils Percent Auto 55.7 % (45-73); Platelet Count 194 X10*3/uL (160-400); Red Cell Distribution Width 14.2 % (11.0-16.0); White Blood Count 7.5 X10*3/uL (4.8-10.8)
[2020-09-29 21:08] LABS: INTERNATIONAL NORM RATIO 1.1 (0.9-1.1); Prothrombin Time 12.8 SEC (10.8-13.0)
[2020-09-29 21:10] LABS: Partial Thromboplastin Time 30.7 SEC (24.1-38.0)
[2020-09-29 21:21] LABS: Lactic Acid 2.6 mmol/L (0.5-2.0)
[2020-09-29 21:24] VITALS: BP 157/74; PULSE 70; RESP 20; TEMP 37.1; O2SAT 98
[2020-09-29 21:25] LABS: Alanine Aminotransferase < 6 U/L (0-40); Albumin Level 3.6 g/dL (3.5-5.0); Alkaline Phosphatase 68 U/L (39-117); Aspartate Amino Transferase 21 U/L (5-37); Bilirubin Direct < 0.2 mg/dL (0.0-0.5); Bilirubin Total 0.3 mg/dL (0.0-1.0); Lipase 5 U/L (8-78); Total Protein 6.9 g/dL (6.5-8.0)
[2020-09-29 21:26] LABS: Troponin-I High Sensitivity 24.7 ng/L (<3.5-35.0)
[2020-09-29] MEDS: ondansetron HCL 4 MG/2 ML VIAL IVPUSH (21:31)
[2020-09-29] MEDS: Morphine Sulfate 4 MG/ML CARTRIDGE IVPUSH (21:31)
[2020-09-29] MEDS: Piperacillin Sodium/Tazobactam 3.375 GM in 0.9 % Sodium Chloride 50 ML IV (22:03)
[2020-09-29] MEDS: 0.9 % Sodium Chloride 1,000 ML 999 ML IVCONT (22:03)
[2020-09-29 22:06] LABS: Anion Gap 17 (12-20); Blood Urea Nitrogen 16 mg/dL (9-16); Calcium 8.8 mg/dL (8.4-10.2); Carbon Dioxide 22 mmol/L (22-29); Chloride 101 mmol/L (96-108); Creatinine Clr Calc Pharmacy 66.6; Estimated Glomerular Filt Rate 60; Glucose Random 333 mg/dL (60-115); Potassium 4.1 mmol/L (3.3-5.1); Sodium 136 mmol/L (135-145)
[2020-09-29] MEDS: iohexoL 350 MG/ML 100 ML INFUS..BTL IV (22:30)
[2020-09-29 22:51] LABS: Reflex Lactate? Lactic Acid Added
--- NOTE | 2020-09-29 22:55 | PC.NURSE ---
PATIENT IS ALERT AND OREINTED, RETURNING FROM CT, AWAITING RESULTS. NO DISTRESS NOTED AT THIS TIME. PAIN LEVEL IS 5/10 MD IS AWARE.
[2020-09-29] MEDS: Ketorolac Tromethamine 30 MG/ML VIAL IVPUSH (23:21)
[2020-09-29 23:27] LABS: C Reactive Protein 0.04 mg/dL (< or = 0.50)
[2020-09-30] VITALS: BP 160/70; PULSE 67; RESP 18; TEMP 36.8; O2SAT 97
[2020-09-30 00:28] LABS: ~Lactic Acid-LAB USE ONLY 1.4 mmol/L (0.5-2.0)
[2020-09-30 00:51] LABS: Procalcitonin 0.05 ng/mL
[2020-09-30] MEDS: LORazepam 1 MG TABLET PO (01:08)
== END 2020-09-30 01:17 | disposition home or self-care (01) ==
PROVIDERS: Emergency Provider Internal Medicine; PCP Internal Medicine
DX: G89.18 Other acute postprocedural pain (principal); Z95.1 Presence of aortocoronary bypass graft; R06.02 Shortness of breath; E11.9 Type 2 diabetes mellitus without complications; I10 Essential (primary) hypertension; E78.5 Hyperlipidemia, unspecified; Z79.82 Long term (current) use of aspirin; Z79.02 Long term (current) use of antithrombotics/antiplatelets; Z79.899 Other long term (current) drug therapy; Z79.4 Long term (current) use of insulin
CPT/HCPCS: 36415; 71045; 74177; 80048; 80076; 83605; 83690; 84145; 84484; 85025; 85610; 85730; 86140; 87040; 93005; 96361; 96365; 96374; 96375; 99284; 99285; J1885; J2270; J2405; J2543; Q9967

== ENCOUNTER 2020-10-06 08:59 | Outpatient (REF) | payer MEDICARE, SELFPAY ==
--- NOTE | ~2020-10-06 | XR_ITS ---
EXAMINATION: XR LUMBOSACRAL SPINE CLINICAL INFORMATION: Low back pain. COMPARISON: None TECHNIQUE: Three views of the lumbosacral spine. FINDINGS: There is normal lumbar lordosis. There is mild anterior wedging T12 and L1 vertebra. Rest of the vertebral heights, alignment and disc heights are normal. No visible acute fracture, dislocation or lytic process seen. XR/XR lumbar spine 2-3V IMPRESSION: Mild anterior wedging T12 and L1 vertebra, indeterminate but likely old.
== END 2020-10-06 09:00 | disposition home or self-care (01) ==
LOC: HO.HMGCX 08:59
PROVIDERS: PCP Internal Medicine; Visit Provider Internal Medicine
DX: M54.5 Low back pain (principal)
CPT/HCPCS: 72100

== ENCOUNTER 2020-10-09 13:05 | Outpatient (REF) | payer MEDICARE, SELFPAY ==
--- NOTE | ~2020-10-09 | US_ITS ---
EXAMINATION: ULTRASOUND CAROTID DUPLEX CHEST X-RAY CLINICAL INFORMATION: Carotid bruit. COMPARISON: Carotid ultrasound 04/17/2015 TECHNIQUE: Routine color, grayscale and color Doppler imaging of major neck vessels was performed. Chest PA one view. FINDINGS: CHEST: The lungs are well expanded and clear of acute process. The heart size and pulmonary vascularity is normal. There is a right PICC line with submillimeter SVC. No gross bony abnormality seen. CAROTID ULTRASOUND: RIGHT CAROTID: There is a hard atherosclerotic shadowing plaques visualized in right carotid bulb. The proximal CCA peak systolic velocity measures 95.6 cm/second, distal CCA velocity measures 108 cm/second. Proximal ICA systolic/diastolic velocity measures 73.9/18.8 cm/second, mid ICA velocity measures 161/55.1 cm/second and distal ICA velocity measures 146/52.1 cm/sec. Findings are suggestive of 50-79% range stenosis. LEFT CAROTID: There is hard atherosclerotic shadowing plaques visualized in left carotid bulb. The peak systolic velocity CCA measures 1 14 cm/second, distal CCA velocity measures 89.6 cm/second. Proximal ICA peak systolic/diastolic velocity measures 141/54 cm/second, mid ICA measures 116/44.2 cm/second, distal ICA measures 159/31.4 cm/second. Findings are suggestive of 50-79% range stenosis. There is normal antegrade flow seen in both vertebral arteries. IMPRESSION 1. There is 50-79% range stenosis both carotid arteries. 2. Hard atherosclerotic shadowing plaque seen in both carotid bulbs. 3. Normal antegrade flow seen in both vertebral arteries.
== END 2020-10-09 13:06 | disposition home or self-care (01) ==
LOC: HO.US 13:05
PROVIDERS: Visit Provider Internal Medicine Cardiovascular Disease
DX: R09.89 Other specified symptoms and signs involving the circulatory and respiratory systems (principal); R05 Cough; J90 Pleural effusion, not elsewhere classified; I10 Essential (primary) hypertension
CPT/HCPCS: 71045; 93880

== ENCOUNTER → 2020-10-16 10:10 | Outpatient (BNVA) | payer MEDICARE, SELFPAY | PROVIDERS: PCP Internal Medicine; Visit Provider Internal Medicine | DX: Z13.89 Encounter for screening for other disorder (principal) | CPT/HCPCS: Q3014 ==

== ENCOUNTER 2020-10-21 09:53 | Emergency (ER) | payer MEDICARE, SELFPAY ==
--- NOTE | ~2020-10-21 | XR_ITS ---
EXAMINATION: XR CHEST CLINICAL INFORMATION: PICC line insertion. Chest pain. COMPARISON: October 09, 2020 TECHNIQUE: 2 views of the chest were obtained. FINDINGS: There is no evidence of acute parenchymal disease, pneumothorax, or pleural effusion. Heart normal size. No evidence of pulmonary edema. Right upper extremity PICC line is seen with tip at the caval atrial junction. XR/XR chest 2V IMPRESSION: No acute disease. PICC line in good position.
--- NOTE | ~2020-10-21 | CT_ITS ---
EXAMINATION: CT ANGIOGRAM CHEST CLINICAL INFORMATION: Chest pain. Rule out pulmonary embolism. COMPARISON: Chest x-ray of 10/21/2020, 10/09/2020, 05/19/2020. Selected images of the abdomen and pelvic CT of 09/29/2020. TECHNIQUE: Multiple axial images were obtained through the chest after the administration of 65 mL of Omnipaque 350 intravenous contrast. Extensive vascular post-processing including two-dimensional and three-dimensional reformatted images were created and reviewed on an independent workstation. This CT examination was performed using dose optimization techniques as appropriate, variously including the following: *Automated exposure control *Adjustment of mA and/or kV according to patient size (this includes techniques or standardized protocols for targeted exams where dose is matched to indication/reason for exam; i.e. extremities or head) *Use of iterative reconstruction technique DLP: 343 mGy-cm FINDINGS: There is satisfactory opacification of the pulmonary arterial tree. There is no evidence of filling defect in the pulmonary arterial tree. The central pulmonary arteries are normal in caliber. The aorta is mildly ectatic with the ascending aorta measuring 3.8 cm in maximum AP diameter. Scattered calcific atherosclerosis of the aorta. There is uksc-au-xfhbnzho cardiomegaly. Contrast reflux is noted in the IVC and hepatic veins suggesting increased right heart strain. There is no evidence of mediastinal or hilar adenopathy. Asymmetrical enlargement of the visualized left thyroid lobe is noted. No focal nodule is noted in the visualized thyroid. No pericardial or pleural effusion. Trachea and central bronchi are well patent. Mild coronary calcifications. No evidence of axillary adenopathy. Right subclavian venous catheter is in place terminating at the superior cavoatrial junction. Mild changes of centrilobular emphysema are noted in the upper lobes. Mild paraseptal bullous changes at the lung apices. Mild dependent changes are noted. Mild bronchial thickening. A 0.2 cm nodule is noted abutting the right minor fissure (series 7 image 244), likely represents a small lymph node. Calcifications are noted throughout the pancreatic parenchyma indicating sequela of prior pancreatitis. Small calcified gallstones are seen. No adrenal mass. No suspicious osseous lesions. Mild anterior wedge compression deformities of a few of the mid to lower thoracic vertebral bodies are seen which are stable compared to previous chest x-ray of 05/19/2020. CT/CT angio chest IMPRESSION: 1. No evidence of pulmonary embolism. 2. No acute abnormality. 3. Mild coronary calcification. Otma-kd-nujbvntr cardiomegaly. Contrast reflux in the IVC and hepatic veins suggesting increased right heart strain. 4. Mild changes of emphysema. No significant pulmonary nodules are noted. A 0.2 cm nodule abutting the right minor fissure likely represents a lymph node. 5. Pancreatic parenchymal calcifications consistent with sequela of prior pancreatitis. 6. Cholelithiasis. VTE: Negative
[2020-10-21 10:54] VITALS: BP 144/70; PULSE 70; RESP 20; TEMP 36.7; O2SAT 98; BMI 31.5
--- NOTE | 2020-10-21 11:02 | ED.CHESTPAIN ---
HPI - Chest Pain General Chief Complaint: Chest Pain Stated Complaint: ? infection Time Seen by Provider: 10/21/20 11:02 History of Present Illness HPI narrative: This is a 70 years old male with history of peripheral vascular disease status post aortic bifemoral bypass complicated by infection and now on IV antibiotics via PICC line presented to the ED complaining of a chest wall pain for about 2 Week. He thinks may be the PICC line. Denies any shortness of breath today for disease any exertional symptoms MD complaint: chest pain Onset (ago): week(s) (2 Weeks) Timing of current episode: constant Prior episodes: No Onset: during rest Severity: moderate Quality: aching Relieving factors: nothing Exacerbating factors: nothing Associated symptoms: vomiting Related Data Home Medications Medication Instructions Recorded Confirmed aspirin 81 mg tablet,delayed 81 mg PO DAILY 04/19/20 10/16/20 release acetaminophen 650 mg PO Q6H PRN 09/17/20 10/16/20 ascorbic acid (vitamin C) 1,000 mg PO DAILY 09/17/20 10/16/20 cholecalciferol (vitamin D3) 125 125 mcg PO DAILY 10/16/20 10/16/20 mcg (5,000 unit) tablet insulin glargine U-300 conc 300 30 unit SUBCUT BID ml 10/16/20 10/16/20 unit/mL (3 mL) subcutaneous pen Previous Rx's Medication Instructions Recorded insulin syringe-needle U-100 1 mL #100 ea 03/09/20 27 gauge x 1/2 blood-glucose meter,continuous #1 ea 03/22/20 blood-glucose sensor #3 ea 03/22/20 blood-glucose transmitter #1 ea 03/22/20 omeprazole 20 mg capsule,delayed 20 mg PO DAILY #90 cap 05/19/20 release tamsulosin 0.4 mg capsule 0.4 mg PO DAILY #90 cap 06/19/20 cefazolin in 0.9% sod chloride 100 ml IV Q8H 35 Days ml 09/19/20 magnesium oxide 400 mg PO BIDPC #60 tab 09/19/20 morphine 15 mg PO Q8H PRN #14 tab 09/20/20 oxycodone 5 mg PO Q8H PRN #14 tab 09/20/20 amlodipine 10 mg tablet 10 mg PO DAILY #30 tab 09/28/20 insulin lispro 100 unit/mL 10 unit SUBCUT TID #15 ml 09/28/20 subcutaneous pen ondansetron 4 mg disintegrating 4 mg PO DAILY PRN 30 Days #30 tab 09/28/20 tablet lorazepam [Ativan] 1 mg PO BEDTIME PRN #10 tab 09/30/20 pen needle, diabetic 31 gauge x #100 ea 10/12/20 5/16 furosemide 40 mg tablet 40 mg PO DAILY #30 tab 10/16/20 gabapentin 600 mg tablet 600 mg PO TID #90 tab 10/16/20 Allergies Allergy/AdvReac Type Severity Reaction Status Date / Time No Known Allergies Allergy Unknown UNKNOWN Verified 10/21/20 11:00 Review of Systems Review of Systems: Yes all other systems are reviewed and are negative Cardiovascular: Cardiovascular: Reports chest pain and Denies dyspnea Respiratory: Respiratory: Denies dyspnea Neurologic: Reports system reviewed and no additional complaints, except as documented [facility] Past Medical History Medical History BPH (benign prostatic hyperplasia) Chronic anemia Cough Diabetic retinopathy Goiter HLD (hyperlipidemia) HTN (hypertension) Lower back pain Neuropathy PVD (peripheral vascular disease) T2DM (type 2 diabetes mellitus) Vitamin D deficiency Surgical History H/O dyfrm-zyema-zuneutt bypass Hx of basal cell carcinoma excision S/P aorto-bifemoral bypass surgery Family History Family History Father Diabetes Mother Diabetes Leukemia Skin cancer Alzheimers disease Dementia Social History Social History Household Members: Spouse Housing: House Alcohol intake: never Smoking Status: Never smoker Packs Per Day: 3 Years Smoked: 20 Use of substances other than those prescribed or required for medical reasons: No Advance Directives: No Advance Directives Information Provided: No service: Yes Current occupational status: retired Physical Exam Vital Signs: Vital Signs: Last Vital Signs Temp 97.9 F 10/21/20 12:06 Pulse 63 10/21/20 14:31 Resp 15 10/21/20 14:31 BP 150/70 H 10/21/20 14:31 Pulse Ox 96 10/21/20 14:31 Body Mass Index 31.5 Const: General: cooperative and comfortable Orientation/consciousness: oriented to person, oriented to place, oriented to time and patient oriented x3 HENMT: Head: Yes normal to inspection and Yes No palpable skull fracture present Eyes: General: appearance normal, both eyes and all related structures Neck: Neck: Yes normal visual inspection and Yes full ROM Chest: Chest palpation & inspection: normal inspection of the chest and normal palpation of entire chest wall Resp: Effort & Inspection: normal respiratory effort and able to speak in complete sentences Cardio: Jugular venous distension: no JVD Rate: regular rate Rhythm: regular rhythm GI: Inspection: Yes normal to inspection Palpation (GI): Soft to palpation Skin: General skin exam: no rashes or lesions noted and elasticity normal Neuro: General: oriented to person, oriented to place, oriented to time and patient oriented x3 Course Course Course Narrative: CT angiography of the chest negative for PE I think we could discharge the patient home pain is been ongoing for weeks EKG within normal limit MDM - Chest Pain Lab Data Result diagrams: 10/21/20 11:44 10/21/20 11:44 Labs: Lab Results 10/21/20 10/21/20 10/21/20 Range/Units 11:44 11:44 11:44 WBC 4.9 (4.8-10.8) X10*3/uL RBC 3.23 L (4.60-5.80) X10*6/uL Hgb 9.1 L (14.0-18.0) g/dl Hct 27.9 L (42-52) % MCV 86.4 (80-98) fL MCH 28.2 (27.0-33.0) pg MCHC 32.6 (31.0-36.0) g/dl RDW 14.0 (11.0-16.0) % Plt Count 168 (160-400) X10*3/uL MPV 10.0 (9.4-12.4) fL Immature Gran % (Auto) 0.2 (0.0-0.4) % Neut % (Auto) 44.5 L (45-73) % Lymph % (Auto) 35.2 (20-40) % Dickey % (Auto) 11.4 H (2-11) % Eos % (Auto) 7.9 H (0-4) % Baso % (Auto) 0.8 (0-2) % Lymph # (Auto) 1.7 (1.2-4.9) X10*3/uL Dickey # (Auto) 0.6 (0.1-1.2) X10*3/uL Eos # (Auto) 0.4 (0.0-0.4) X10*3/uL Baso # (Auto) 0.0 (0.0-0.2) X10*3/uL Abs Immat Gran (auto) 0.01 (0.00-0.03) X10*3/uL Absolute Neuts (auto) 2.2 (2.0-8.3) X10*3/uL Absolute Nucleated RBC 0.000 (0.0-0.012) X10*3/uL Nucleated RBC % (auto) 0.0 (0.0-0.2) /100WBC PT 12.6 (10.8-13.0) SEC INR 1.1 (0.9-1.1) D-Dimer 481 NG/ML Sodium 140 (135-145) mmol/L Potassium 3.9 (3.3-5.1) mmol/L Chloride 106 (96-108) mmol/L Carbon Dioxide 25 (22-29) mmol/L Anion Gap 13 (12-20) BUN 14 (9-16) mg/dL Creatinine 0.98 (0.5-1.4) mg/dL Estim Creat Clear Calc 80.6 Estimated GFR > 60 Random Glucose 121 H D (60-115) mg/dL Calcium 9.1 (8.4-10.2) mg/dL Total Bilirubin 0.2 (0.0-1.0) mg/dL AST 15 (5-37) U/L ALT < 6 (0-40) U/L Alkaline Phosphatase 54 D (39-117) U/L Troponin I High Sens (<3.5-35.0) ng/L Total Protein 6.6 (6.5-8.0) g/dL Albumin 3.9 (3.5-5.0) g/dL 10/21/20 Range/Units 11:44 WBC (4.8-10.8) X10*3/uL RBC (4.60-5.80) X10*6/uL Hgb (14.0-18.0) g/dl Hct (42-52) % MCV (80-98) fL MCH (27.0-33.0) pg MCHC (31.0-36.0) g/dl RDW (11.0-16.0) % Plt Count (160-400) X10*3/uL MPV (9.4-12.4) fL Immature Gran % (Auto) (0.0-0.4) % Neut % (Auto) (45-73) % Lymph % (Auto) (20-40) % Dickey % (Auto) (2-11) % Eos % (Auto) (0-4) % Baso % (Auto) (0-2) % Lymph # (Auto) (1.2-4.9) X10*3/uL Dickey # (Auto) (0.1-1.2) X10*3/uL Eos # (Auto) (0.0-0.4) X10*3/uL Baso # (Auto) (0.0-0.2) X10*3/uL Abs Immat Gran (auto) (0.00-0.03) X10*3/uL Absolute Neuts (auto) (2.0-8.3) X10*3/uL Absolute Nucleated RBC (0.0-0.012) X10*3/uL Nucleated RBC % (auto) (0.0-0.2) /100WBC PT (10.8-13.0) SEC INR (0.9-1.1) D-Dimer NG/ML Sodium (135-145) mmol/L Potassium (3.3-5.1) mmol/L Chloride (96-108) mmol/L Carbon Dioxide (22-29) mmol/L Anion Gap (12-20) BUN (9-16) mg/dL Creatinine (0.5-1.4) mg/dL Estim Creat Clear Calc Estimated GFR Random Glucose (60-115) mg/dL Calcium (8.4-10.2) mg/dL Total Bilirubin (0.0-1.0) mg/dL AST (5-37) U/L ALT (0-40) U/L Alkaline Phosphatase (39-117) U/L Troponin I High Sens 26.9 (<3.5-35.0) ng/L Total Protein (6.5-8.0) g/dL Albumin (3.5-5.0) g/dL ECG Data Normal sinus rhythm rate [address]-T changes: Attestation: I personally reviewed and interpreted this ECG as follows: Pacemaker model: Normal sinus rhythm was 62 is the rate normal axis no ST-T changes Discharge Plan Discharge Clinical Impression: Chest pain Patient Disposition: Home, Self-Care Instructions: Chest Pain (ED) Additional Instructions: Follow-up with your primary care physician on Friday return to the emergency room if you worse at any concern Prescriptions: No Action (DME) insulin syringe-needle U-100 [BD Insulin Syringe] 1 mL 27 gauge x 1/2 syringe See Rx Instructions .ROUTE .MEDSUPPLY Qty: 100 RF: 0 (DME) Dexcom G6 Sensor Device See Rx Instructions .ROUTE .MEDSUPPLY Qty: 3 RF: 11 (DME) Dexcom G6 Transmitter Device See Rx Instructions .ROUTE .MEDSUPPLY Qty: 1 RF: 11 (DME) Dexcom G6 Dog Hair Clipper Misc See Rx Instructions .ROUTE .MEDSUPPLY Qty: 1 RF: 0 aspirin [Adult Aspirin Regimen] 81 mg tablet,delayed release (DR/EC) 81 mg PO DAILY RF: 0 tamsulosin 0.4 mg capsule 0.4 mg PO DAILY Qty: 90 RF: 3 (DME) pen needle, diabetic [Comfort EZ Pen [place]] 31 gauge x 5/16 needle See Rx Instructions .ROUTE .MEDSUPPLY Qty: 100 RF: 5 ascorbic acid (vitamin C) 1,000 mg Tablet 1,000 mg PO DAILY RF: 0 acetaminophen 325 mg Tablet 650 mg PO Q6H PRN (Reason: Pain (Scale Score 1-3)) RF: 0 cefazolin in 0.9% sod chloride 2 gram/100 mL solution 100 ml IV Q8H 35 Days RF: 0 magnesium oxide 400 mg (241.3 mg magnesium) Tablet 400 mg PO BIDPC Qty: 60 RF: 0 oxycodone 5 mg tablet 5 mg PO Q8H PRN (Reason: pain (scale score 7-10)) Qty: 14 RF: 0 morphine 15 mg tablet 15 mg PO Q8H PRN (Reason: pain (scale score 7-10)) Qty: 14 RF: 0 Toujeo Max U-300 SoloStar 300 unit/mL (3 mL) insulin pen 30 unit subcut BID RF: 0 lorazepam [Ativan] 1 mg tablet 1 mg PO BEDTIME PRN (Reason: sleep) Qty: 10 RF: 0 ondansetron 4 mg tablet,disintegrating 4 mg PO DAILY PRN (Reason: nausea and vomiting) 30 Days Qty: 30 RF: 1 insulin lispro [Humalog KwikPen Insulin] 100 unit/mL insulin pen 10 unit subcut TID Qty: 15 RF: 6 amlodipine 10 mg tablet 10 mg PO DAILY Qty: 30 RF: 0 gabapentin 600 mg tablet 600 mg PO TID Qty: 90 RF: 3 furosemide 40 mg tablet 40 mg PO DAILY Qty: 30 RF: 5 omeprazole 20 mg capsule,delayed release(DR/EC) 20 mg PO DAILY Qty: 90 RF: 3 cholecalciferol (vitamin D3) 125 mcg (5,000 unit) tablet 125 mcg PO DAILY RF: 0 Referrals: Sherrie Banks MD [Primary Care Provider] - 2 days Interventions: ED Discharge Assessment Last Done: 10/21/20 16:07 Discharge Date/Time: 10/21/20 16:07
--- NOTE | 2020-10-21 11:17 | ECG_ITS ---
Test Reason : CP Blood Pressure : / mmHG Vent. Rate : 062 BPM Atrial Rate : 062 BPM P-R Int : 146 ms QRS Dur : 086 ms QT Int : 424 ms P-R-T Axes : 070 014 057 degrees QTc Int : 430 ms Normal sinus rhythm Possible Left atrial enlargement Borderline ECG When compared with ECG of 29-SEP-2020 16:46, Premature ventricular complexes are no longer Present Referred By: Mateo Hope Electronically Signed By:YOU HOLLOWAY MD
[2020-10-21 11:48] LABS: Basophils Percent Auto 0.8 % (0-2); Eosinophils Absolute Auto 0.4 X10*3/uL (0.0-0.4); Eosinophils Percent Auto 7.9 % (0-4); Hematocrit 27.9 % (42-52); Hemoglobin 9.1 g/dl (14.0-18.0); Imm Gran Abs Auto 0.01 X10*3/uL (0.00-0.03); Imm Gran Pct Auto 0.2 % (0.0-0.4); Lymphocytes Absolute Auto 1.7 X10*3/uL (1.2-4.9); Lymphocytes Percent Auto 35.2 % (20-40); Mean Corpuscular HGB Conc 32.6 g/dl (31.0-36.0); Mean Corpuscular Hemoglobin 28.2 pg (27.0-33.0); Mean Corpuscular Volume 86.4 fL (80-98); Monocytes Absolute Auto 0.6 X10*3/uL (0.1-1.2); Monocytes Percent Auto 11.4 % (2-11); Neutrophils Absolute Auto 2.2 X10*3/uL (2.0-8.3); Neutrophils Percent Auto 44.5 % (45-73); Platelet Count 168 X10*3/uL (160-400); Red Blood Count 3.23 X10*6/uL (4.60-5.80); White Blood Count 4.9 X10*3/uL (4.8-10.8)
[2020-10-21 11:49] LABS: MANUAL DIFF FLAG NO
[2020-10-21 11:55] LABS: INTERNATIONAL NORM RATIO 1.1 (0.9-1.1); Prothrombin Time 12.6 SEC (10.8-13.0)
[2020-10-21 11:58] LABS: D Dimer 481 NG/ML
[2020-10-21 12:06] VITALS: BP 141/70; PULSE 65; RESP 15; TEMP 36.6; O2SAT 98
[2020-10-21 12:15] LABS: Troponin-I High Sensitivity 26.9 ng/L (<3.5-35.0)
--- NOTE | 2020-10-21 12:15 | PC.NURSE ---
Pt alert, oriented, skin pink, warm, dry. VSS, LSCTA. Pt to XRAY, Labs obtained results pending. at bedside at this time.
[2020-10-21 12:25] LABS: Albumin Level 3.9 g/dL (3.5-5.0); Alkaline Phosphatase 54 U/L (39-117); Anion Gap 13 (12-20); Aspartate Amino Transferase 15 U/L (5-37); Bilirubin Total 0.2 mg/dL (0.0-1.0); Blood Urea Nitrogen 14 mg/dL (9-16); Calcium 9.1 mg/dL (8.4-10.2); Carbon Dioxide 25 mmol/L (22-29); Chloride 106 mmol/L (96-108); Creatinine Clr Calc Pharmacy 80.6; Estimated Glomerular Filt Rate > 60; Glucose Random 121 mg/dL (60-115); Potassium 3.9 mmol/L (3.3-5.1); Sodium 140 mmol/L (135-145); Total Protein 6.6 g/dL (6.5-8.0)
[2020-10-21 12:37] LABS: Alanine Aminotransferase < 6 U/L (0-40)
[2020-10-21] MEDS: iohexoL 350 MG/ML 100 ML INFUS..BTL IV (14:10)
[2020-10-21 14:31] VITALS: BP 150/70; PULSE 63; RESP 15; O2SAT 96
== END 2020-10-21 16:07 | disposition home or self-care (01) ==
PROVIDERS: Emergency Provider Emergency Medicine; PCP Internal Medicine
DX: R07.9 Chest pain, unspecified (principal); E11.9 Type 2 diabetes mellitus without complications; I10 Essential (primary) hypertension; E78.5 Hyperlipidemia, unspecified; Z79.82 Long term (current) use of aspirin; Z79.4 Long term (current) use of insulin; Z79.899 Other long term (current) drug therapy
CPT/HCPCS: 36415; 71046; 71275; 80053; 84484; 85025; 85379; 85610; 93005; 99285; Q9967

== ENCOUNTER 2020-10-25 10:03 | Outpatient (REF) | payer MEDICARE, SELFPAY ==
--- NOTE | ~2020-10-25 | US_ITS ---
EXAMINATION: US THYROID CLINICAL INFORMATION: Nontoxic goiter, unspecified. COMPARISON: Ultrasound soft tissue head/neck thyroid dated 03/21/2020. TECHNIQUE: Linear transducer grayscale and color Doppler examination with attention to the region of the thyroid. FINDINGS: SIZE: Measurements of the thyroid lobes and nodules are given in sagittal, anteroposterior and transverse dimensions respectively. Right Thyroid Lobe: 4.8 x 2.4 x 2.2 cm, volume 13.4 mL. Previously 5.3 x 1.9 x 2.1 cm, volume 10.8 mL. Parenchyma: The gland echotexture is homogeneous. Thyroid vascularity is normal. Left Thyroid Lobe: 4.3 x 2.1 x 1.9 cm, volume 9.0 mL. Previously 4.3 x 1.7 x 1.9 cm, volume 7.4 mL. Parenchyma: The gland echotexture is homogeneous. Thyroid vascularity is normal. Isthmus: 0.5 cm in maximum AP dimension. Previously 0.5 cm. Estimated total number of nodules greater than or equal to 1 cm: None. Bingo Usher nodules are described as follows: 1. Location: Left mid. Size: 0.5 x 0.6 x 0.5 cm, volume 0.08 mL. Previously: This nodule is new. Nodule characteristics: Composition: Solid (2). Echogenicity: Hypoechoic (2). Shape: Taller than wide (3). Margins: Smooth (0). Echogenic Foci: None (0). ACR TI-RADS total points: 7 ACR TI-RADS category: 5 NODES: No lymphadenopathy is seen in the tissue surrounding the thyroid gland. US/US thyroid IMPRESSION: 1. A left thyroid lobe nodule is seen, as above. Recommend follow-up thyroid ultrasound in one year 2. There is a thyroid goiter. ACR TI-RADS RECOMMENDATION REFERENCE: Ultrasound-guided fine-needle aspiration, followup ultrasound, no further follow up. * TR1 (0 point) and TR 2 (2 points): No FNA or follow up * TR3 (3 points): FNA if more than or equal to 2.5 cm in maximum dimension, followup ultrasound in 1, 3 and 5 years if 1.5 to 2.4 cm in maximum dimension. * TR4 (4-6 points): FNA if more than or equal to 1.5 cm in maximum dimension, followup ultrasound in 1, 2, 3 and 5 years if 1 to 1.4 cm in maximum dimension. * TR5 (more than or equal to 7 points): FNA if more than or equal to 1 cm in maximum dimension, followup ultrasound every year for 5 years if 0.5 to 0.9 cm in maximum dimension. * TR3, TR4 or TR5 nodules that are below the size threshold for follow up receive no follow up.
== END 2020-10-25 10:04 | disposition home or self-care (01) ==
LOC: HO.US 10:03
PROVIDERS: PCP Internal Medicine; Visit Provider Internal Medicine
DX: E04.9 Nontoxic goiter, unspecified (principal)
CPT/HCPCS: 76536

== ENCOUNTER 2020-11-03 10:12 | Outpatient (REF) | payer MEDICARE, SELFPAY ==
[2020-11-03 13:00] LABS: Hematocrit 31.8 % (42-52); Hemoglobin 10.3 g/dl (14.0-18.0); Mean Corpuscular HGB Conc 32.4 g/dl (31.0-36.0); Mean Corpuscular Hemoglobin 27.8 pg (27.0-33.0); Mean Corpuscular Volume 85.9 fL (80-98); Platelet Count 220 X10*3/uL (160-400); Red Cell Distribution Width 13.6 % (11.0-16.0); White Blood Count 6.3 X10*3/uL (4.8-10.8)
[2020-11-03 13:15] LABS: Estimated Average Glucose 131 mg/dL; Hemoglobin A1c % 6.2 %
[2020-11-03 13:31] LABS: Vitamin D 25-OH Total 31.6 ng/mL (>30)
[2020-11-03 13:32] LABS: Alanine Aminotransferase < 6 U/L (0-40); Albumin Level 4.2 g/dL (3.5-5.0); Alkaline Phosphatase 53 U/L (39-117); Anion Gap 13 (12-20); Aspartate Amino Transferase 16 U/L (5-37); Bilirubin Total 0.3 mg/dL (0.0-1.0); Blood Urea Nitrogen 16 mg/dL (9-16); Calcium 9.5 mg/dL (8.4-10.2); Carbon Dioxide 25 mmol/L (22-29); Chloride 106 mmol/L (96-108); Cholesterol 157 mg/dL; Estimated Glomerular Filt Rate > 60; Glucose Random 113 mg/dL (60-115); HDL Cholesterol 28 mg/dL; Iron 34 mcg/dL (45-160); LDL Cholesterol Calculated 103 mg/dl; Magnesium 1.9 mg/dL (1.6-2.6); Percent Iron Saturation 11 % (15-50); Potassium 4.1 mmol/L (3.3-5.1); Sodium 140 mmol/L (135-145); Total Iron Binding Capacity 301 mcg/dL (228-428); Triglycerides 131 mg/dL; Unsaturated Iron Binding 267 ug/dL
[2020-11-03 13:36] LABS: Alanine Aminotransferase < 6 U/L (0-40); Albumin Level 4.2 g/dL (3.5-5.0); Alkaline Phosphatase 52 U/L (39-117); Anion Gap 13 (12-20); Aspartate Amino Transferase 16 U/L (5-37); Bilirubin Direct < 0.2 mg/dL (0.0-0.5); Bilirubin Total 0.3 mg/dL (0.0-1.0); Blood Urea Nitrogen 16 mg/dL (9-16); C Reactive Protein 0.04 mg/dL (< or = 0.50); Carbon Dioxide 26 mmol/L (22-29); Chloride 105 mmol/L (96-108); Estimated Glomerular Filt Rate > 60; Potassium 4.1 mmol/L (3.3-5.1); Sodium 140 mmol/L (135-145)
[2020-11-03 13:56] LABS: Erythrocyte Sedimentation Rate 8 MM/HR (0-15)
[2020-11-03 14:43] LABS: Creatinine Urine 82.39 mg/dL; Microalbum/Creatinine Ratio Ur 60.6 ug/mg cr
[2020-11-04 05:26] LABS: LDL Cholesterol Direct 113 mg/dL (<100)
== END 2020-11-03 10:13 | disposition home or self-care (01) ==
LOC: HO.LAB 10:12
PROVIDERS: Internal Medicine; Absent Provider Internal Medicine; PCP Internal Medicine; Visit Provider Internal Medicine Infectious Disease
DX: M79.18 Myalgia, other site (principal); M54.5 Low back pain; I10 Essential (primary) hypertension; J90 Pleural effusion, not elsewhere classified; R05 Cough; E11.65 Type 2 diabetes mellitus with hyperglycemia; Z79.4 Long term (current) use of insulin; E55.9 Vitamin D deficiency, unspecified; T82.7XXD Infection and inflammatory reaction due to other cardiac and vascular devices, implants and grafts, subsequent encounter
CPT/HCPCS: 20553; 36415; 80051; 80053; 80061; 80076; 82043; 82248; 82306; 82565; 83036; 83540; 83721; 83735; 84520; 85027; 85652; 86140; 99202

== ENCOUNTER 2020-11-07 13:32 | Outpatient (RCR) | payer MEDICARE, SELFPAY ==
[2020-11-07 14:07] VITALS: BP 140/80
--- NOTE | 2020-11-07 17:47 | MHC.PT.EP ---
[facility] [place] Office [place] [facility] [place] Office [address] [place] [address] [phone] F: [phone] F: [phone] F: [phone] F: [phone] Physical Therapy Plan of Care Date of Evaluation: Date of Surgery: Diagnosis: LBP, neuropathy. Assessment: Pt is a 70 y/o male referred to PT for LBP and neuropathy; Pt has a complicated history where he experienced worsening LBP Sx after injuring his back lifting his garage door roughly in June 2020; he reports 2 months after this incident on August 08 he became septic from a L groin/ pelvic abscess and underwent a complicated uxzne-nv-dvtzddi bypass surgery through [facility]. Pt receives txd iv Ancef infusions via PICC line (6 weeks) and presents with PICC in place L medial biceps Pt has [facility] services for meds, blood work and to change his PICC line. Pt reports L LE neuropathy and L leg pain from knee to his groin which he relates to his recent surgery. His lumbar pain and resulting condition has resulted in decreased tolerance for walking intermediate distances, performing light and Heavy HH chores, standing for duration, as well as performing squatting and trunk flexion activities secondary to decreased core and LE strength, decreased trunk ROM, impaired bed mobility, general decondition post complicated surgical recovery, and pain. Pt is deemed an appropriate candidate to receive skilled PT in order to address her physical limitations to improve her functional ability. Pt is deemed an appropriate candidate to receive skilled PT in order to address his physical limitations to improve his functional ability. Frequency and Duration: The patient will be seen 2 x / wk x 6 wks. Short Term Goals: Initiate HEP with evidence of compliance. Improve baseline pain wuth activity from 10/10 to < 7/10. Fpc Goals: I with HEP. Pt will be able to walk 2 blocks with at most a little bit of difficulty; initial: extreme difficulty or unable to perform. Pt will be able to sit > 1 hour with at most a little bit of difficulty; initial: quite a bit of difficulty. Treatment Plan: Modalities to reduce pain, spasms and effusion. Manual therapy to restore motion and function. Therapeutic exercise to improve strength and flexibility. Neuromuscular re-education for posture and balance. Therapeutic activities to return to functional activities of daily living. Electronically signed by: Alexander Valero PT Please sign and return to therapist. Thank you for your referral.
--- NOTE | 2020-12-27 10:38 | MHC.PT.DC ---
[facility] [place] Office [place] Office [place] Office [address] [place] [address] [phone] F: [phone] F: [phone] F: [phone] F: [phone] Physical Therapy Discharge Report Diagnosis: LBP, neuropathy. Date of Surgery: Date of Evaluation: 11/07/20 Date of Discharge: 12/27/20 Treatments to Date: 1 Cancellations to Date: No Shows to Date: Discharge Status: Patient Elected to Stop Visit Non-compliance Discharge Summary: Caesar attended his initial evaluation for LBP with neuropathy following a aortobifeoral bypass which became septic. Pt reported at the time his living situation was complicated for therapy in [place]; he was encouraged to complete a course of therapy after assessing his deeds and was given the option to continue at with [facility] [place] or transfer his therapy yo [facility]. Pt did not follow up with [facility] and reported high co-pay so he did not continue with PT at [facility] either; he is presenting to the clinic today with a new script for LBP from pain management after reporting no improvement following trigger-point injections. Electronically signed by: Alexander ValeroPT Please sign and return to therapist. Thank you for your referral.
== END 2020-12-27 10:39 | disposition home or self-care (01) ==
LOC: HO.PTCHIC 13:32
PROVIDERS: PCP Internal Medicine; Visit Provider Internal Medicine
DX: M54.5 Low back pain (principal); G62.9 Polyneuropathy, unspecified
CPT/HCPCS: 97110; 97163

== ENCOUNTER → 2020-11-22 14:10 | Outpatient (BNVA) | payer MEDICARE, SELFPAY | PROVIDERS: PCP Internal Medicine; Visit Provider Internal Medicine | DX: E11.65 Type 2 diabetes mellitus with hyperglycemia (principal); E78.5 Hyperlipidemia, unspecified; I10 Essential (primary) hypertension; E04.1 Nontoxic single thyroid nodule; Z79.4 Long term (current) use of insulin | CPT/HCPCS: 82947; 99212 ==

== ENCOUNTER → 2020-12-08 08:10 | Outpatient (BNVA) | payer MEDICARE, SELFPAY | PROVIDERS: PCP Internal Medicine; Visit Provider Internal Medicine | DX: M54.5 Low back pain (principal); G89.29 Other chronic pain | CPT/HCPCS: 99212 ==

== ENCOUNTER 2020-12-15 14:36 | Outpatient (REF) | payer MEDICARE, SELFPAY ==
[2020-12-15 16:52] LABS: MANUAL DIFF FLAG NO
[2020-12-15 16:55] LABS: Basophils Absolute Auto 0.1 X10*3/uL (0.0-0.2); Basophils Percent Auto 0.6 % (0-2); Eosinophils Absolute Auto 0.4 X10*3/uL (0.0-0.4); Eosinophils Percent Auto 4.2 % (0-4); Hematocrit 37.1 % (42-52); Hemoglobin 12.6 g/dl (14.0-18.0); Imm Gran Abs Auto 0.03 X10*3/uL (0.00-0.03); Imm Gran Pct Auto 0.3 % (0.0-0.4); Lymphocytes Absolute Auto 3.1 X10*3/uL (1.2-4.9); Lymphocytes Percent Auto 30.5 % (20-40); Mean Corpuscular Volume 79.6 fL (80-98); Mean Platelet Volume 11.2 fL (9.4-12.4); Monocytes Absolute Auto 0.8 X10*3/uL (0.1-1.2); Monocytes Percent Auto 7.3 % (2-11); Neutrophils Absolute Auto 5.9 X10*3/uL (2.0-8.3); Neutrophils Percent Auto 57.1 % (45-73); Platelet Count 260 X10*3/uL (160-400); Red Blood Count 4.66 X10*6/uL (4.60-5.80); Red Cell Distribution Width 13.7 % (11.0-16.0); White Blood Count 10.3 X10*3/uL (4.8-10.8)
[2020-12-15 17:17] LABS: Anion Gap 16 (12-20); Blood Urea Nitrogen 22 mg/dL (9-16); C Reactive Protein 0.11 mg/dL (< or = 0.50); Calcium 9.7 mg/dL (8.4-10.2); Carbon Dioxide 24 mmol/L (22-29); Chloride 102 mmol/L (96-108); Estimated Glomerular Filt Rate 44; Glucose Random 136 mg/dL (60-115); Potassium 3.9 mmol/L (3.3-5.1); Sodium 138 mmol/L (135-145)
== END 2020-12-15 14:37 | disposition home or self-care (01) ==
LOC: HO.HMGCLDS 14:36
PROVIDERS: Visit Provider Internal Medicine
DX: L02.214 Cutaneous abscess of groin (principal); I10 Essential (primary) hypertension; J90 Pleural effusion, not elsewhere classified; R05 Cough
CPT/HCPCS: 36415; 80048; 85025; 86140

== ENCOUNTER 2020-12-27 08:56 | Outpatient (RCR) | payer MEDICARE, SELFPAY ==
--- NOTE | 2021-03-22 09:18 | MHC.PT.DC ---
[facility] [place] Office [place] Office [place] Office [address] [place] [address] [phone] F: [phone] F: [phone] F: [phone] F: [phone] Physical Therapy Discharge Report Diagnosis: LBP Date of Surgery: Date of Evaluation: 12/27/20 Date of Discharge: 03/22/21 Treatments to Date: 1 Cancellations to Date: No Shows to Date: 2 Discharge Status: Visit Non-compliance Discharge Summary: Caesar did not follow up with PT after his initial evaluation. Electronically signed by: Alexander Valero PT. Please sign and return to therapist. Thank you for your referral.
== END 2021-03-22 09:18 | disposition home or self-care (01) ==
LOC: HO.PTCHIC 08:56
PROVIDERS: PCP Internal Medicine; Visit Provider Anesthesiology
DX: M54.5 Low back pain (principal); M79.18 Myalgia, other site
CPT/HCPCS: 97110; 97162

== ENCOUNTER 2021-01-08 15:33 | Emergency (ER) | payer MEDICARE, SELFPAY ==
--- NOTE | ~2021-01-08 | CT_ITS ---
EXAMINATION: CT ABDOMEN AND PELVIS WITH CONTRAST CLINICAL INFORMATION: r/o aortic graft abcess, BACK/ABD PAIN COMPARISON: CT angiogram chest 10/21/[address] abdomen pelvis 09/29/2020 TECHNIQUE: Multidetector volumetric images were obtained from the superior aspect of the liver through the pubic symphysis following administration 85 mL of Omnipaque 350 intravenous contrast. Sagittal and coronal reformatted images were obtained on the technologist's workstation. Oral contrast: No This CT examination was performed using dose optimization techniques as appropriate, variously including the following: *Automated exposure control *Adjustment of mA and/or kV according to patient size (this includes techniques or standardized protocols for targeted exams where dose is matched to indication/reason for exam; i.e. extremities or head) *Use of iterative reconstruction technique DLP: 737 mGy-cm FINDINGS: LUNG BASES: A small bolus is noted in the right middle lobe. Some scarring or atelectasis is present at the lung bases. LIVER, GALLBLADDER, AND BILIARY TREE: The liver is normal in size, shape, and attenuation. No focal hepatic lesion or biliary ductal dilatation is present. The gallbladder contains layering small calcified gallstones but is otherwise unremarkable with no evidence of gallbladder wall thickening or obvious pericholecystic inflammatory changes. PANCREAS: Dense calcifications are present throughout the pancreas consistent with chronic pancreatitis, unchanged from prior. The pancreatic duct is dilated measuring 9 mm. In the distal pancreatic duct, a large obstructing stone is seen measuring 10 x 7 x 9 mm. SPLEEN: Unremarkable. ADRENAL GLANDS: Unremarkable. KIDNEYS AND URETERS: The kidneys are normal in size, shape, and attenuation. No hydronephrosis, hydroureter, or calculi seen. Calcification is seen in the left kidney are most likely vascular. No perinephric stranding. BLADDER: Unremarkable. GASTROINTESTINAL TRACT: The small and large bowel are unremarkable. There are colonic diverticula without diverticulitis. The appendix is unremarkable. ABDOMINAL WALL: No significant hernia is appreciated. Possible prior repair of periumbilical hernia. Please see discussion below regarding groin fluid collections. LYMPH NODES: No retroperitoneal lymphadenopathy seen. VASCULAR: An aortobifemoral bypass graft is patent. The [place] iliac vessels are occluded. Previously seen fluid collection behind the graft at its bifurcation is significantly smaller. Fluid collection around the left limb of the graft has significantly decreased in size. Fluid collections in both groins have significantly decreased in size the largest on the right previously measuring 3.1 x 2.3 cm (prior 388) and currently measuring only 1.2 x 1.1 cm (4:503). PELVIC VISCERA: Mild BPH with normal-appearing seminal vesicles. Calcification present in the tunica albuginea raises the question of a Peyronie's disease. OSSEOUS STRUCTURES: Degenerative changes noted in lower thoracic spine with mild compression deformities, unchanged CT/CT abdomen pelvis w con IMPRESSION: 1. No evidence of aortic graft abscess. [place]-graft fluid collections have significantly decreased since 09/29/2020. 2. Other incidental findings unchanged including cholelithiasis, calcification secondary to chronic pancreatitis with dilated duct and obstructing stone, colonic diverticula, mild BPH and compression deformities lower thoracic spine
--- NOTE | 2021-01-08 15:47 | ECG_ITS ---
Test Reason : CHEST PAIN Blood Pressure : / mmHG Vent. Rate : 057 BPM Atrial Rate : 057 BPM P-R Int : 152 ms QRS Dur : 088 ms QT Int : 426 ms P-R-T Axes : 067 017 059 degrees QTc Int : 414 ms Sinus bradycardia Otherwise normal ECG When compared with ECG of 21-OCT-2020 11:45, No significant change was found Referred By: Andrew Marie Electronically Signed By:YOU HOLLOWAY MD
[2021-01-08 15:48] VITALS: BP 174/84; PULSE 62; RESP 20; TEMP 36.8; O2SAT 94; BMI 29.4
--- NOTE | 2021-01-08 15:57 | ED_ITS ---
HPI - General Adult General Chief complaint: General Medical Stated complaint: infection Time Seen by Provider: 01/08/21 15:47 Related Data Home Medications Medication Instructions Recorded Confirmed aspirin 81 mg tablet,delayed 81 mg PO DAILY 04/19/20 11/22/20 release (Adult Aspirin Regimen) acetaminophen 325 mg tablet 650 mg PO Q6H PRN 09/17/20 11/22/20 ascorbic acid (vitamin C) 1,000 mg 1,000 mg PO DAILY 09/17/20 11/22/20 tablet cholecalciferol (vitamin D3) 125 125 mcg PO DAILY 10/16/20 11/22/20 mcg (5,000 unit) tablet Previous Rx's Medication Instructions Recorded insulin syringe-needle U-100 1 mL #100 ea 03/09/20 27 gauge x 1/2 (BD Insulin Syringe) blood-glucose meter,continuous #1 ea 03/22/20 (Dexcom G6 [employer]) blood-glucose sensor (Dexcom G6 #3 ea 03/22/20 Sensor) blood-glucose transmitter (Dexcom #1 ea 03/22/20 G6 Transmitter) omeprazole 20 mg capsule,delayed 20 mg PO DAILY #90 cap 05/19/20 release tamsulosin 0.4 mg capsule 0.4 mg PO DAILY #90 cap 06/19/20 cefazolin 2 gram/100 mL in 0.9 % 100 ml IV Q8H 35 Days ml 09/19/20 sodium chloride intravenous solution magnesium oxide 400 mg (241.3 mg 400 mg PO BIDPC #60 tab 09/19/20 magnesium) tablet morphine 15 mg immediate release 15 mg PO Q8H PRN #14 tab 09/20/20 tablet oxycodone 5 mg tablet 5 mg PO Q8H PRN #14 tab 09/20/20 amlodipine 10 mg tablet 10 mg PO DAILY #30 tab 09/28/20 insulin lispro 100 unit/mL 10 unit SUBCUT TID #15 ml 09/28/20 subcutaneous pen (Humalog KwikPen (U-100) Insulin) ondansetron 4 mg disintegrating 4 mg PO DAILY PRN 30 Days #30 tab 09/28/20 tablet pen needle, diabetic 31 gauge x #100 ea 10/12/20/16 (Comfort EZ Pen [place]) furosemide 40 mg tablet 40 mg PO DAILY #30 tab 10/16/20 gabapentin 600 mg tablet 600 mg PO TID #90 tab 10/16/20 insulin glargine U-300 conc 300 30 unit SUBCUT BID 30 Days #6 ml 10/23/20 unit/mL (3 mL) subcutaneous pen (Toujeo Max U-300 SoloStar) atorvastatin 20 mg tablet 20 mg PO DAILY #90 tab 11/06/20 baclofen 10 mg tablet 10 mg PO BEDTIME #20 tab 11/29/20 morphine 15 mg tablet,extended 15 mg PO Q12H PRN #15 tab 12/08/20 release pregabalin 150 mg capsule 150 mg PO TID #90 cap 12/25/20 oxycodone 5 mg tablet 5 mg PO TID PRN #10 tab 01/08/21 Allergies Allergy/AdvReac Type Severity Reaction Status Date / Time No Known Allergies Allergy Unknown UNKNOWN Verified 01/08/21 15:46 [facility] Past Medical History Medical History BPH (benign prostatic hyperplasia) Chronic anemia Cough Diabetic retinopathy Goiter HLD (hyperlipidemia) HTN (hypertension) Lower back pain Neuropathy PVD (peripheral vascular disease) T2DM (type 2 diabetes mellitus) Thyroid nodule Vitamin D deficiency Surgical History H/O uagyb-cpbwl-vosrdro bypass Hx of basal cell carcinoma excision S/P aorto-bifemoral bypass surgery Family History Family History Father Diabetes Mother Diabetes Leukemia Skin cancer Alzheimers disease Dementia Social History Social History Household Members: Spouse Housing: House Do you presently have visiting nurse or other home services: Yes Alcohol intake: never Patient Tobacco Use Status: Former Tobacco user Cigarette Packs Per Day: 3 Years Smoked: 20 Advance Directives: No Advance Directives Information Provided: Yes service: Yes Current occupational status: retired Physical Exam Vital Signs: Vital Signs: Last Vital Signs Temp 98.2 F 01/08/21 15:48 Pulse 55 01/08/21 21:36 Resp 16 01/08/21 21:36 BP 142/49 H 01/08/21 21:36 Pulse Ox 98 01/08/21 21:36 Body Mass Index 29.4 Course Course Course Narrative: Patient presents to the ED for not feeling well and having chest/abdominal/thight pain which are sites of his aortic femoral bypass. Patient admitted mutiple times for infection for bypss and discharged. Labs ordered. Case discussed with charge nurse to bring patient to the ED immediately for further evaluation. this is rapid medical screening. Medical Decision Making Lab Data Result diagrams: 01/08/21 16:31 01/08/21 16:31 Labs: Lab Results 01/08/21 01/08/21 01/08/21 Range/Units 16:31 16:31 16:31 WBC 7.7 (4.8-10.8) X10*3/uL RBC 4.51 L (4.60-5.80) X10*6/uL Hgb 12.4 L (14.0-18.0) g/dl Hct 36.3 L (42-52) % MCV 80.5 (80-98) fL MCH 27.5 (27.0-33.0) pg MCHC 34.2 (31.0-36.0) g/dl RDW 15.2 (11.0-16.0) % Plt Count 168 D (160-400) X10*3/uL MPV 11.7 (9.4-12.4) fL Immature Gran % (Auto) 0.3 (0.0-0.4) % Neut % (Auto) 56.7 (45-73) % Lymph % (Auto) 28.1 (20-40) % Mcdowell % (Auto) 8.0 (2-11) % Eos % (Auto) 6.4 H (0-4) % Baso % (Auto) 0.5 (0-2) % Lymph # (Auto) 2.2 (1.2-4.9) X10*3/uL [place]owell # (Auto) 0.6 (0.1-1.2) X10*3/uL Eos # (Auto) 0.5 H (0.0-0.4) X10*3/uL Baso # (Auto) 0.0 (0.0-0.2) X10*3/uL Abs Immat Gran (auto) 0.02 (0.00-0.03) X10*3/uL Absolute Neuts (auto) 4.4 (2.0-8.3) X10*3/uL Absolute Nucleated RBC 0.000 (0.0-0.012) X10*3/uL Nucleated RBC % (auto) 0.0 (0.0-0.2) /100WBC ESR (0-15) MM/HR Sodium 140 (135-145) mmol/L Potassium 3.9 (3.3-5.1) mmol/L Chloride 109 H (96-108) mmol/L Carbon Dioxide 23 (22-29) mmol/L Anion Gap 12 (12-20) BUN 15 (9-16) mg/dL Creatinine 1.28 (0.5-1.4) mg/dL Estim Creat Clear Calc 59.7 Estimated GFR 55 Random Glucose 182 H (60-115) mg/dL Lactic Acid (0.5-2.0) mmol/L Calcium 9.2 (8.4-10.2) mg/dL Total Bilirubin 0.6 0.7 (0.0-1.0) mg/dL Direct Bilirubin 0.3 (0.0-0.5) mg/dL AST 17 18 (5-37) U/L ALT 20 20 (0-40) U/L Alkaline Phosphatase 67 D 67 (39-117) U/L Troponin I High Sens (<3.5-35.0) ng/L C-Reactive Protein (< or = 0.50) mg/dL Total Protein 7.5 7.6 (6.5-8.0) g/dL Albumin 4.5 4.6 (3.5-5.0) g/dL Lipase 16 (8-78) U/L Urine Color Urine Appearance Urine pH (5.0-8.0) Ur Specific [place] (1.005-1.025) Urine Protein (NEG-TRACE) MG/DL Urine Glucose (UA) (NEG) MG/DL Urine Ketones (NEG) MG/DL Urine Blood (NEG) Urine Nitrite (NEG) Ur Leukocyte Esterase (NEG) 01/08/21 01/08/21 01/08/21 Range/Units 16:31 16:31 16:31 WBC (4.8-10.8) X10*3/uL RBC (4.60-5.80) X10*6/uL Hgb (14.0-18.0) g/dl Hct (42-52) % MCV (80-98) fL MCH (27.0-33.0) pg MCHC (31.0-36.0) g/dl RDW (11.0-16.0) % Plt Count (160-400) X10*3/uL MPV (9.4-12.4) fL Immature Gran % (Auto) (0.0-0.4) % Neut % (Auto) (45-73) % Lymph % (Auto) (20-40) % Mcdowell % (Auto) (2-11) % Eos % (Auto) (0-4) % Baso % (Auto) (0-2) % Lymph # (Auto) (1.2-4.9) X10*3/uL [place] # (Auto) (0.1-1.2) X10*3/uL Eos # (Auto) (0.0-0.4) X10*3/uL Baso # (Auto) (0.0-0.2) X10*3/uL Abs Immat Gran (auto) (0.00-0.03) X10*3/uL Absolute Neuts (auto) (2.0-8.3) X10*3/uL Absolute Nucleated RBC (0.0-0.012) X10*3/uL Nucleated RBC % (auto) (0.0-0.2) /100WBC ESR 9 (0-15) MM/HR Sodium (135-145) mmol/L Potassium (3.3-5.1) mmol/L Chloride (96-108) mmol/L Carbon Dioxide (22-29) mmol/L Anion Gap (12-20) BUN (9-16) mg/dL Creatinine (0.5-1.4) mg/dL Estim Creat Clear Calc Estimated GFR Random Glucose (60-115) mg/dL Lactic Acid 0.7 (0.5-2.0) mmol/L Calcium (8.4-10.2) mg/dL Total Bilirubin (0.0-1.0) mg/dL Direct Bilirubin (0.0-0.5) mg/dL AST (5-37) U/L ALT (0-40) U/L Alkaline Phosphatase (39-117) U/L Troponin I High Sens 19.6 (<3.5-35.0) ng/L C-Reactive Protein (< or = 0.50) mg/dL Total Protein (6.5-8.0) g/dL Albumin (3.5-5.0) g/dL Lipase (8-78) U/L Urine Color Urine Appearance Urine pH (5.0-8.0) Ur Specific Mason (1.005-1.025) Urine Protein (NEG-TRACE) MG/DL Urine Glucose (UA) (NEG) MG/DL Urine Ketones (NEG) MG/DL Urine Blood (NEG) Urine Nitrite (NEG) Ur Leukocyte Esterase (NEG) 01/08/21 01/08/21 Range/Units 16:31 19:19 WBC (4.8-10.8) X10*3/uL RBC (4.60-5.80) X10*6/uL Hgb (14.0-18.0) g/dl Hct (42-52) % MCV (80-98) fL MCH (27.0-33.0) pg MCHC (31.0-36.0) g/dl RDW (11.0-16.0) % Plt Count (160-400) X10*3/uL MPV (9.4-12.4) fL Immature Gran % (Auto) (0.0-0.4) % Neut % (Auto) (45-73) % Lymph % (Auto) (20-40) % [place] % (Auto) (2-11) % Eos % (Auto) (0-4) % Baso % (Auto) (0-2) % Lymph # (Auto) (1.2-4.9) X10*3/uL [place] # (Auto) (0.1-1.2) X10*3/uL Eos # (Auto) (0.0-0.4) X10*3/uL Baso # (Auto) (0.0-0.2) X10*3/uL Abs Immat Gran (auto) (0.00-0.03) X10*3/uL Absolute Neuts (auto) (2.0-8.3) X10*3/uL Absolute Nucleated RBC (0.0-0.012) X10*3/uL Nucleated RBC % (auto) (0.0-0.2) /100WBC ESR (0-15) MM/HR Sodium (135-145) mmol/L Potassium (3.3-5.1) mmol/L Chloride (96-108) mmol/L Carbon Dioxide (22-29) mmol/L Anion Gap (12-20) BUN (9-16) mg/dL Creatinine (0.5-1.4) mg/dL Estim Creat Clear Calc Estimated GFR Random Glucose (60-115) mg/dL Lactic Acid (0.5-2.0) mmol/L Calcium (8.4-10.2) mg/dL Total Bilirubin (0.0-1.0) mg/dL Direct Bilirubin (0.0-0.5) mg/dL AST (5-37) U/L ALT (0-40) U/L Alkaline Phosphatase (39-117) U/L Troponin I High Sens (<3.5-35.0) ng/L C-Reactive Protein 0.11 (< or = 0.50) mg/dL Total Protein (6.5-8.0) g/dL Albumin (3.5-5.0) g/dL Lipase (8-78) U/L Urine Color YELLOW Urine Appearance CLEAR Urine pH 6.0 (5.0-8.0) Ur Specific Mason 1.010 (1.005-1.025) Urine Protein NEG (NEG-TRACE) MG/DL Urine Glucose (UA) NEG (NEG) MG/DL Urine Ketones NEG (NEG) MG/DL Urine Blood NEG (NEG) Urine Nitrite NEG (NEG) Ur Leukocyte Esterase NEG (NEG) Discharge Plan Discharge Clinical Impression: Chronic groin pain Patient Disposition: Home, Self-Care Instructions: Groin Pain (ED) Additional Instructions: Please follow-up with your primary care physician tomorrow. If you have any worsening or new symptoms, please return to the emergency room or call 911 Prescriptions: New oxycodone 5 mg tablet 5 mg PO TID PRN (Reason: pain) Qty: 10 RF: 0 No Action (DME) insulin syringe-needle U-100 [BD Insulin Syringe] 1 mL 27 gauge x 1/2 syringe See Rx Instructions .ROUTE .MEDSUPPLY Qty: 100 RF: 0 (DME) DivvyHQ G6 Sensor Device See Rx Instructions .ROUTE .MEDSUPPLY Qty: 3 RF: 11 (DME) Dexcom G6 Transmitter Device See Rx Instructions .ROUTE .MEDSUPPLY Qty: 1 RF: 11 (DME) Dexcom G6 [employer] Misc See Rx Instructions .ROUTE .MEDSUPPLY Qty: 1 RF: 0 aspirin [Adult Aspirin Regimen] 81 mg tablet,delayed release (DR/EC) 81 mg PO DAILY RF: 0 tamsulosin 0.4 mg capsule 0.4 mg PO DAILY Qty: 90 RF: 3 (DME) pen needle, diabetic [Comfort EZ Pen [place]] 31 gauge x 5/16 needle See Rx Instructions .ROUTE .MEDSUPPLY Qty: 100 RF: 5 atorvastatin 20 mg tablet 20 mg PO DAILY Qty: 90 RF: 0 baclofen 10 mg tablet 10 mg PO BEDTIME Qty: 20 RF: 0 pregabalin 150 mg capsule 150 mg PO TID Qty: 90 RF: 0 ascorbic acid (vitamin C) 1,000 mg Tablet 1,000 mg PO DAILY RF: 0 acetaminophen 325 mg Tablet 650 mg PO Q6H PRN (Reason: Pain (Scale Score 1-3)) RF: 0 cefazolin in 0.9% sod chloride 2 gram/100 mL solution 100 ml IV Q8H 35 Days RF: 0 magnesium oxide 400 mg (241.3 mg magnesium) Tablet 400 mg PO BIDPC Qty: 60 RF: 0 oxycodone 5 mg tablet 5 mg PO Q8H PRN (Reason: pain (scale score 7-10)) Qty: 14 RF: 0 morphine 15 mg tablet 15 mg PO Q8H PRN (Reason: pain (scale score 7-10)) Qty: 14 RF: 0 ondansetron 4 mg tablet,disintegrating 4 mg PO DAILY PRN (Reason: nausea and vomiting) 30 Days Qty: 30 RF: 1 insulin lispro [Humalog KwikPen Insulin] 100 unit/mL insulin pen 10 unit subcut TID Qty: 15 RF: 6 amlodipine 10 mg tablet 10 mg PO DAILY Qty: 30 RF: 0 gabapentin 600 mg tablet 600 mg PO TID Qty: 90 RF: 3 furosemide 40 mg tablet 40 mg PO DAILY Qty: 30 RF: 5 omeprazole 20 mg capsule,delayed release(DR/EC) 20 mg PO DAILY Qty: 90 RF: 3 morphine 15 mg tablet extended release 15 mg PO Q12H PRN (Reason: pain, severe) Qty: 15 RF: 0 cholecalciferol (vitamin D3) 125 mcg (5,000 unit) tablet 125 mcg PO DAILY RF: 0 Toujeo Max U-300 SoloStar 300 unit/mL (3 mL) insulin pen 30 unit subcut BID 30 Days Qty: 6 RF: 11 Interventions: ED Discharge Assessment Last Done: 01/08/21 21:45 Discharge Date/Time: 01/08/21 21:46
[2021-01-08 16:40] LABS: MANUAL DIFF FLAG NO
[2021-01-08 17:01] LABS: Basophils Percent Auto 0.5 % (0-2); Eosinophils Absolute Auto 0.5 X10*3/uL (0.0-0.4); Eosinophils Percent Auto 6.4 % (0-4); Hematocrit 36.3 % (42-52); Hemoglobin 12.4 g/dl (14.0-18.0); Imm Gran Abs Auto 0.02 X10*3/uL (0.00-0.03); Imm Gran Pct Auto 0.3 % (0.0-0.4); Lymphocytes Absolute Auto 2.2 X10*3/uL (1.2-4.9); Lymphocytes Percent Auto 28.1 % (20-40); Mean Corpuscular HGB Conc 34.2 g/dl (31.0-36.0); Mean Corpuscular Hemoglobin 27.5 pg (27.0-33.0); Mean Corpuscular Volume 80.5 fL (80-98); Mean Platelet Volume 11.7 fL (9.4-12.4); Monocytes Absolute Auto 0.6 X10*3/uL (0.1-1.2); Neutrophils Absolute Auto 4.4 X10*3/uL (2.0-8.3); Neutrophils Percent Auto 56.7 % (45-73); Platelet Count 168 X10*3/uL (160-400); Red Blood Count 4.51 X10*6/uL (4.60-5.80); Red Cell Distribution Width 15.2 % (11.0-16.0); White Blood Count 7.7 X10*3/uL (4.8-10.8)
[2021-01-08 17:07] LABS: Lactic Acid 0.7 mmol/L (0.5-2.0)
[2021-01-08 17:11] LABS: C Reactive Protein 0.11 mg/dL (< or = 0.50)
[2021-01-08 17:12] LABS: Alanine Aminotransferase 20 U/L (0-40); Albumin Level 4.6 g/dL (3.5-5.0); Alkaline Phosphatase 67 U/L (39-117); Anion Gap 12 (12-20); Aspartate Amino Transferase 18 U/L (5-37); Bilirubin Total 0.7 mg/dL (0.0-1.0); Blood Urea Nitrogen 15 mg/dL (9-16); Calcium 9.2 mg/dL (8.4-10.2); Carbon Dioxide 23 mmol/L (22-29); Chloride 109 mmol/L (96-108); Creatinine Clr Calc Pharmacy 59.7; Estimated Glomerular Filt Rate 55; Glucose Random 182 mg/dL (60-115); Potassium 3.9 mmol/L (3.3-5.1); Sodium 140 mmol/L (135-145); Total Protein 7.6 g/dL (6.5-8.0)
[2021-01-08 17:13] LABS: Alanine Aminotransferase 20 U/L (0-40); Albumin Level 4.5 g/dL (3.5-5.0); Alkaline Phosphatase 67 U/L (39-117); Aspartate Amino Transferase 17 U/L (5-37); Bilirubin Direct 0.3 mg/dL (0.0-0.5); Bilirubin Total 0.6 mg/dL (0.0-1.0); Lipase 16 U/L (8-78); Total Protein 7.5 g/dL (6.5-8.0)
[2021-01-08 17:16] LABS: Troponin-I High Sensitivity 19.6 ng/L (<3.5-35.0)
[2021-01-08 18:22] LABS: Erythrocyte Sedimentation Rate 9 MM/HR (0-15)
--- NOTE | 2021-01-08 18:56 | ED.GENADULT ---
HPI - General Adult General Chief complaint: General Medical Stated complaint: infection Time Seen by Provider: 01/08/21 15:47 Source: patient Mode of arrival: ambulatory Limitations: no limitations History of Present Illness HPI narrative: Patient still complaining bilateral inguinal pain, worse on the left side. Patient states that on 08/08/2020, he had an aortic bypass surgery at [facility]. Patient states that he has had PICC lines and multiple doses of oral antibiotics for her recurrent infections. Patient denies fever chills, just inguinal pain. Patient states that in prior hospital visits, blood work was normal unknown CT scan they found that there was an abscess forming around the graft sit. Patient denies fever or chills, no dysuria, no URI symptoms. Family reports that since his surgery, patient has been ?deteriorating?, they state that the patient seems weaker. Patient denies any changes in his skin, no erythema, no pus drainage Related Data Home Medications Medication Instructions Recorded Confirmed aspirin 81 mg tablet,delayed 81 mg PO DAILY 04/19/20 11/22/20 release (Adult Aspirin Regimen) acetaminophen 325 mg tablet 650 mg PO Q6H PRN 09/17/20 11/22/20 ascorbic acid (vitamin C) 1,000 mg 1,000 mg PO DAILY 09/17/20 11/22/20 tablet cholecalciferol (vitamin D3) 125 125 mcg PO DAILY 10/16/20 11/22/20 mcg (5,000 unit) tablet Previous Rx's Medication Instructions Recorded insulin syringe-needle U-100 1 mL #100 ea 03/09/20 27 gauge x 1/2 (BD Insulin Syringe) blood-glucose meter,continuous #1 ea 03/22/20 (Dexcom G6 Decision Science Analyst) blood-glucose sensor (Dexcom G6 #3 ea 03/22/20 Sensor) blood-glucose transmitter (Dexcom #1 ea 03/22/20 G6 Transmitter) omeprazole 20 mg capsule,delayed 20 mg PO DAILY #90 cap 05/19/20 release tamsulosin 0.4 mg capsule 0.4 mg PO DAILY #90 cap 06/19/20 cefazolin 2 gram/100 mL in 0.9 % 100 ml IV Q8H 35 Days ml 09/19/20 sodium chloride intravenous solution magnesium oxide 400 mg (241.3 mg 400 mg PO BIDPC #60 tab 09/19/20 magnesium) tablet morphine 15 mg immediate release 15 mg PO Q8H PRN #14 tab 09/20/20 tablet oxycodone 5 mg tablet 5 mg PO Q8H PRN #14 tab 09/20/20 amlodipine 10 mg tablet 10 mg PO DAILY #30 tab 09/28/20 insulin lispro 100 unit/mL 10 unit SUBCUT TID #15 ml 09/28/20 subcutaneous pen (Humalog KwikPen (U-100) Insulin) ondansetron 4 mg disintegrating 4 mg PO DAILY PRN 30 Days #30 tab 09/28/20 tablet pen needle, diabetic 31 gauge x #100 ea 10/12/2010/15 (Comfort EZ Pen [place]) furosemide 40 mg tablet 40 mg PO DAILY #30 tab 10/16/20 gabapentin 600 mg tablet 600 mg PO TID #90 tab 10/16/20 insulin glargine U-300 conc 300 30 unit SUBCUT BID 30 Days #6 ml 10/23/20 unit/mL (3 mL) subcutaneous pen (Toujeo Max U-300 SoloStar) atorvastatin 20 mg tablet 20 mg PO DAILY #90 tab 11/06/20 baclofen 10 mg tablet 10 mg PO BEDTIME #20 tab 11/29/20 morphine 15 mg tablet,extended 15 mg PO Q12H PRN #15 tab 12/08/20 release pregabalin 150 mg capsule 150 mg PO TID #90 cap 12/25/20 oxycodone 5 mg tablet 5 mg PO TID PRN #10 tab 01/08/21 Allergies Allergy/AdvReac Type Severity Reaction Status Date / Time No Known Allergies Allergy Unknown UNKNOWN Verified 01/08/21 15:46 Review of Systems Review of Systems: Constitutional : No Weight loss, No Fever, No Chills, No Night Sweats, chronic fatigue, per family the fatigue seems to be worse ENT/Mouth : No Hearing loss, No Ear Pain, No Nasal Congestion, No Sinus Pain, No Hoarseness, No sore throat, No Rhinorrhea, No Swallowing Difficulty Eyes: No Eye Pain, No Swelling, No Redness, No Foreign Body, No Discharge, No Vision Changes Cardiovascular : No Chest Pain, No SOB, No Dyspnea on Exertion, No Orthopnea, No Edema, No Palpitations Respiratory : No Cough, No Sputum, No Wheezing, No Smoke Exposure, No Dyspnea Gastrointestinal : No Nausea, No Vomiting, No Diarrhea, No Constipation, No abdominal Pain, complaining of bilateral inguinal pain, worse on the left side Genitourinary : no irregular bleeding, No Dysuria, No Urinary Frequency, No Hematuria, No Urinary Incontinence, No Urgency, No Flank Pain, No Urinary Flow Changes, No Hesitancy Musculoskeletal : No joint pain, No Myalgias, No Joint Swelling Skin : No Skin Lesions, No rash Neuro : No Weakness, No Numbness, No Paresthesias, No Loss of Consciousness, No Dizziness, No Headache Psych : No Anxiety/Panic, No Depression, No SI/HI/AH/VH, No Social Issues, Heme/Lymph: No Bruising, No Bleeding,No Lymphadenopathy Endocrine : No Polyuria, No Polydipsia, No Temperature Intolerance [facility], [facility] Past Medical History Medical History BPH (benign prostatic hyperplasia) Chronic anemia Cough Diabetic retinopathy Goiter HLD (hyperlipidemia) HTN (hypertension) Lower back pain Neuropathy PVD (peripheral vascular disease) T2DM (type 2 diabetes mellitus) Thyroid nodule Vitamin D deficiency Surgical History H/O sinak-[id number]-jsscahv bypass Hx of basal cell carcinoma excision S/P aorto-bifemoral bypass surgery Family History Family History Father Diabetes Mother Diabetes Leukemia Skin cancer Alzheimers disease Dementia Social History Social History Household Members: Spouse Housing: House Do you presently have visiting nurse or other home services: Yes Alcohol intake: never Patient Tobacco Use Status: Former Tobacco user Cigarette Packs Per Day: 3 Years Smoked: 20 Advance Directives: No Advance Directives Information Provided: Yes service: Yes Current occupational status: retired Physical Exam Vital Signs: Vital Signs: Last Vital Signs Temp 98.2 F 01/08/21 15:48 Pulse 62 01/08/21 15:48 Resp 16 01/08/21 19:43 BP 174/84 H 01/08/21 15:48 Pulse Ox 94 01/08/21 15:48 Body Mass Index 29.4 Const: Other: Appearance: Alert. Oriented X3. No acute distress. Eyes: Pupils equal, round and reactive to light. ENT: Pharynx normal. Neck: Normal inspection. Neck supple. No lymph nodes noted. No crepitus CVS: Normal heart rate and rhythm. Pulses normal. Normal S1 and S2 Respiratory: No respiratory distress. Breath sounds normal. No Wheezing. No rales Abdomen: Soft and nontender. No rigidity. No distention, mild to moderate discomfort on palpation over the left inguinal area, mild suprapubic discomfort with palpation, surgical wounds well healed, no drainage, no palpable masses Skin: Skin warm and dry. Normal skin color. Normal skin turgor. Extremities: No lower extremity edema. No lower extremity edema. No Lacerations. No Rash Neuro: Oriented X 3. No motor deficit. No sensory deficit. Moving all extermities. No slurred speech. Course Course Course Narrative: I discussed the labs and imaging with the patient, no acute findings. Patient states that he has an appointment pending with a pain specialist. Patient requested a prescription for morphine at home, but instead, we will prescribe him oxycodone p.r.n. Medical Decision Making Lab Data Result diagrams: 01/08/21 16:31 01/08/21 16:31 Labs: Lab Results 01/08/21 01/08/21 01/08/21 Range/Units 16:31 16:31 16:31 WBC 7.7 (4.8-10.8) X10*3/uL RBC 4.51 L (4.60-5.80) X10*6/uL Hgb 12.4 L (14.0-18.0) g/dl Hct 36.3 L (42-52) % MCV 80.5 (80-98) fL MCH 27.5 (27.0-33.0) pg MCHC 34.2 (31.0-36.0) g/dl RDW 15.2 (11.0-16.0) % Plt Count 168 D (160-400) X10*3/uL MPV 11.7 (9.4-12.4) fL Immature Gran % (Auto) 0.3 (0.0-0.4) % Neut % (Auto) 56.7 (45-73) % Lymph % (Auto) 28.1 (20-40) % Payne % (Auto) 8.0 (2-11) % Eos % (Auto) 6.4 H (0-4) % Baso % (Auto) 0.5 (0-2) % Lymph # (Auto) 2.2 (1.2-4.9) X10*3/uL Payne # (Auto) 0.6 (0.1-1.2) X10*3/uL Eos # (Auto) 0.5 H (0.0-0.4) X10*3/uL Baso # (Auto) 0.0 (0.0-0.2) X10*3/uL Abs Immat Gran (auto) 0.02 (0.00-0.03) X10*3/uL Absolute Neuts (auto) 4.4 (2.0-8.3) X10*3/uL Absolute Nucleated RBC 0.000 (0.0-0.012) X10*3/uL Nucleated RBC % (auto) 0.0 (0.0-0.2) /100WBC ESR (0-15) MM/HR Sodium 140 (135-145) mmol/L Potassium 3.9 (3.3-5.1) mmol/L Chloride 109 H (96-108) mmol/L Carbon Dioxide 23 (22-29) mmol/L Anion Gap 12 (12-20) BUN 15 (9-16) mg/dL Creatinine 1.28 (0.5-1.4) mg/dL Estim Creat Clear Calc 59.7 Estimated GFR 55 Random Glucose 182 H (60-115) mg/dL Lactic Acid (0.5-2.0) mmol/L Calcium 9.2 (8.4-10.2) mg/dL Total Bilirubin 0.6 0.7 (0.0-1.0) mg/dL Direct Bilirubin 0.3 (0.0-0.5) mg/dL AST 17 18 (5-37) U/L ALT 20 20 (0-40) U/L Alkaline Phosphatase 67 D 67 (39-117) U/L Troponin I High Sens (<3.5-35.0) ng/L C-Reactive Protein (< or = 0.50) mg/dL Total Protein 7.5 7.6 (6.5-8.0) g/dL Albumin 4.5 4.6 (3.5-5.0) g/dL Lipase 16 (8-78) U/L Urine Color Urine Appearance Urine pH (5.0-8.0) Ur Specific [place] (1.005-1.025) Urine Protein (NEG-TRACE) MG/DL Urine Glucose (UA) (NEG) MG/DL Urine Ketones (NEG) MG/DL Urine Blood (NEG) Urine Nitrite (NEG) Ur Leukocyte Esterase (NEG) 01/08/21 01/08/21 01/08/21 Range/Units 16:31 16:31 16:31 WBC (4.8-10.8) X10*3/uL RBC (4.60-5.80) X10*6/uL Hgb (14.0-18.0) g/dl Hct (42-52) % MCV (80-98) fL MCH (27.0-33.0) pg MCHC (31.0-36.0) g/dl RDW (11.0-16.0) % Plt Count (160-400) X10*3/uL MPV (9.4-12.4) fL Immature Gran % (Auto) (0.0-0.4) % Neut % (Auto) (45-73) % Lymph % (Auto) (20-40) % Payne % (Auto) (2-11) % Eos % (Auto) (0-4) % Baso % (Auto) (0-2) % Lymph # (Auto) (1.2-4.9) X10*3/uL Payne # (Auto) (0.1-1.2) X10*3/uL Eos # (Auto) (0.0-0.4) X10*3/uL Baso # (Auto) (0.0-0.2) X10*3/uL Abs Immat Gran (auto) (0.00-0.03) X10*3/uL Absolute Neuts (auto) (2.0-8.3) X10*3/uL Absolute Nucleated RBC (0.0-0.012) X10*3/uL Nucleated RBC % (auto) (0.0-0.2) /100WBC ESR 9 (0-15) MM/HR Sodium (135-145) mmol/L Potassium (3.3-5.1) mmol/L Chloride (96-108) mmol/L Carbon Dioxide (22-29) mmol/L Anion Gap (12-20) BUN (9-16) mg/dL Creatinine (0.5-1.4) mg/dL Estim Creat Clear Calc Estimated GFR Random Glucose (60-115) mg/dL Lactic Acid 0.7 (0.5-2.0) mmol/L Calcium (8.4-10.2) mg/dL Total Bilirubin (0.0-1.0) mg/dL Direct Bilirubin (0.0-0.5) mg/dL AST (5-37) U/L ALT (0-40) U/L Alkaline Phosphatase (39-117) U/L Troponin I High Sens 19.6 (<3.5-35.0) ng/L C-Reactive Protein (< or = 0.50) mg/dL Total Protein (6.5-8.0) g/dL Albumin (3.5-5.0) g/dL Lipase (8-78) U/L Urine Color Urine Appearance Urine pH (5.0-8.0) Ur Specific [place] (1.005-1.025) Urine Protein (NEG-TRACE) MG/DL Urine Glucose (UA) (NEG) MG/DL Urine Ketones (NEG) MG/DL Urine Blood (NEG) Urine Nitrite (NEG) Ur Leukocyte Esterase (NEG) 01/08/21 01/08/21 Range/Units 16:31 19:19 WBC (4.8-10.8) X10*3/uL RBC (4.60-5.80) X10*6/uL Hgb (14.0-18.0) g/dl Hct (42-52) % MCV (80-98) fL MCH (27.0-33.0) pg MCHC (31.0-36.0) g/dl RDW (11.0-16.0) % Plt Count (160-400) X10*3/uL MPV (9.4-12.4) fL Immature Gran % (Auto) (0.0-0.4) % Neut % (Auto) (45-73) % Lymph % (Auto) (20-40) % Payne % (Auto) (2-11) % Eos % (Auto) (0-4) % Baso % (Auto) (0-2) % Lymph # (Auto) (1.2-4.9) X10*3/uL Payne # (Auto) (0.1-1.2) X10*3/uL Eos # (Auto) (0.0-0.4) X10*3/uL Baso # (Auto) (0.0-0.2) X10*3/uL Abs Immat Gran (auto) (0.00-0.03) X10*3/uL Absolute Neuts (auto) (2.0-8.3) X10*3/uL Absolute Nucleated RBC (0.0-0.012) X10*3/uL Nucleated RBC % (auto) (0.0-0.2) /100WBC ESR (0-15) MM/HR Sodium (135-145) mmol/L Potassium (3.3-5.1) mmol/L Chloride (96-108) mmol/L Carbon Dioxide (22-29) mmol/L Anion Gap (12-20) BUN (9-16) mg/dL Creatinine (0.5-1.4) mg/dL Estim Creat Clear Calc Estimated GFR Random Glucose (60-115) mg/dL Lactic Acid (0.5-2.0) mmol/L Calcium (8.4-10.2) mg/dL Total Bilirubin (0.0-1.0) mg/dL Direct Bilirubin (0.0-0.5) mg/dL AST (5-37) U/L ALT (0-40) U/L Alkaline Phosphatase (39-117) U/L Troponin I High Sens (<3.5-35.0) ng/L C-Reactive Protein 0.11 (< or = 0.50) mg/dL Total Protein (6.5-8.0) g/dL Albumin (3.5-5.0) g/dL Lipase (8-78) U/L Urine Color YELLOW Urine Appearance CLEAR Urine pH 6.0 (5.0-8.0) Ur Specific [place] 1.010 (1.005-1.025) Urine Protein NEG (NEG-TRACE) MG/DL Urine Glucose (UA) NEG (NEG) MG/DL Urine Ketones NEG (NEG) MG/DL Urine Blood NEG (NEG) Urine Nitrite NEG (NEG) Ur Leukocyte Esterase NEG (NEG) Imaging Data CT scan - abdomen: Radiologist's impression: FINDINGS: LUNG BASES: A small bolus is noted in the right middle lobe. Some scarring or atelectasis is present at the lung bases.? LIVER, GALLBLADDER, AND BILIARY TREE: The liver is normal in size, shape, and attenuation. No focal hepatic lesion or biliary ductal dilatation is present. The gallbladder contains layering small calcified gallstones but is otherwise unremarkable with no evidence of gallbladder wall thickening or obvious pericholecystic inflammatory changes.? PANCREAS: Dense calcifications are present throughout the pancreas consistent with chronic pancreatitis, unchanged from prior. The pancreatic duct is dilated measuring 9 mm. In the distal pancreatic duct, a large obstructing stone is seen measuring 10 x 7 x 9 mm.? SPLEEN: Unremarkable.? ADRENAL GLANDS: Unremarkable.? KIDNEYS AND URETERS: The kidneys are normal in size, shape, and attenuation. No hydronephrosis, hydroureter, or calculi seen. Calcification is seen in the left kidney are most likely vascular. No perinephric stranding. ? BLADDER: Unremarkable.? GASTROINTESTINAL TRACT: The small and large bowel are unremarkable. There are colonic diverticula without diverticulitis. The appendix is unremarkable.? ABDOMINAL WALL: No significant hernia is appreciated. Possible prior repair of periumbilical hernia. Please see discussion below regarding groin fluid collections. LYMPH NODES: No retroperitoneal lymphadenopathy seen. VASCULAR: An aortobifemoral bypass graft is patent. The [place] iliac vessels are occluded. Previously seen fluid collection behind the graft at its bifurcation is significantly smaller. Fluid collection around the left limb of the graft has significantly decreased in size. Fluid collections in both groins have significantly decreased in size the largest on the right previously measuring 3.1 x 2.3 cm (prior 388) and currently measuring only 1.2 x 1.1 cm (4:503). PELVIC VISCERA: Mild BPH with normal-appearing seminal vesicles. Calcification present in the tunica albuginea raises the question of a Peyronie's disease. OSSEOUS STRUCTURES: Degenerative changes noted in lower thoracic spine with mild compression deformities, unchanged? CT/CT abdomen pelvis w con IMPRESSION: 1.? No evidence of aortic graft abscess. [place]sey-graft fluid? collections have significantly decreased since 09/29/2020.? 2.? Other incidental findings unchanged including cholelithiasis, calcification secondary to chronic pancreatitis with dilated duct and obstructing stone, colonic diverticula, mild BPH and compression deformities lower thoracic spine Discharge Plan Discharge Clinical Impression: Chronic groin pain Qualifiers: Laterality: unspecified laterality Qualified Code(s): R10.30 - Lower abdominal pain, unspecified Patient Disposition: Home, Self-Care Instructions: Groin Pain (ED) Additional Instructions: Please follow-up with your primary care physician tomorrow. If you have any worsening or new symptoms, please return to the emergency room or call 911 Prescriptions: New oxycodone 5 mg tablet 5 mg PO TID PRN (Reason: pain) Qty: 10 RF: 0 No Action (DME) insulin syringe-needle U-100 [BD Insulin Syringe] 1 mL 27 gauge x 1/2 syringe See Rx Instructions .ROUTE .MEDSUPPLY Qty: 100 RF: 0 (DME) Dexcom G6 Sensor Device See Rx Instructions .ROUTE .MEDSUPPLY Qty: 3 RF: 11 (DME) Dexcom G6 Transmitter Device See Rx Instructions .ROUTE .MEDSUPPLY Qty: 1 RF: 11 (DME) Dexcom G6 Decision Science Analyst Misc See Rx Instructions .ROUTE .MEDSUPPLY Qty: 1 RF: 0 aspirin [Adult Aspirin Regimen] 81 mg tablet,delayed release (DR/EC) 81 mg PO DAILY RF: 0 tamsulosin 0.4 mg capsule 0.4 mg PO DAILY Qty: 90 RF: 3 (DME) pen needle, diabetic [Comfort EZ Pen [place]] 31 gauge x 5/16 needle See Rx Instructions .ROUTE .MEDSUPPLY Qty: 100 RF: 5 atorvastatin 20 mg tablet 20 mg PO DAILY Qty: 90 RF: 0 baclofen 10 mg tablet 10 mg PO BEDTIME Qty: 20 RF: 0 pregabalin 150 mg capsule 150 mg PO TID Qty: 90 RF: 0 ascorbic acid (vitamin C) 1,000 mg Tablet 1,000 mg PO DAILY RF: 0 acetaminophen 325 mg Tablet 650 mg PO Q6H PRN (Reason: Pain (Scale Score 1-3)) RF: 0 cefazolin in 0.9% sod chloride 2 gram/100 mL solution 100 ml IV Q8H 35 Days RF: 0 magnesium oxide 400 mg (241.3 mg magnesium) Tablet 400 mg PO BIDPC Qty: 60 RF: 0 oxycodone 5 mg tablet 5 mg PO Q8H PRN (Reason: pain (scale score 7-10)) Qty: 14 RF: 0 morphine 15 mg tablet 15 mg PO Q8H PRN (Reason: pain (scale score 7-10)) Qty: 14 RF: 0 ondansetron 4 mg tablet,disintegrating 4 mg PO DAILY PRN (Reason: nausea and vomiting) 30 Days Qty: 30 RF: 1 insulin lispro [Humalog KwikPen Insulin] 100 unit/mL insulin pen 10 unit subcut TID Qty: 15 RF: 6 amlodipine 10 mg tablet 10 mg PO DAILY Qty: 30 RF: 0 gabapentin 600 mg tablet 600 mg PO TID Qty: 90 RF: 3 furosemide 40 mg tablet 40 mg PO DAILY Qty: 30 RF: 5 omeprazole 20 mg capsule,delayed release(DR/EC) 20 mg PO DAILY Qty: 90 RF: 3 morphine 15 mg tablet extended release 15 mg PO Q12H PRN (Reason: pain, severe) Qty: 15 RF: 0 cholecalciferol (vitamin D3) 125 mcg (5,000 unit) tablet 125 mcg PO DAILY RF: 0 Toujeo Max U-300 SoloStar 300 unit/mL (3 mL) insulin pen 30 unit subcut BID 30 Days Qty: 6 RF: 11
[2021-01-08 19:28] LABS: Glucose Urine UA NEG (NEG); Leukocyte Esterase Urine NEG (NEG); Nitrite Urine NEG (NEG); Urine Blood NEG (NEG); Urine Ketones NEG (NEG); Urine Protein NEG (NEG-TRACE)
[2021-01-08 19:30] LABS: Appearance Urine CLEAR; Color Urine YELLOW
[2021-01-08 19:43] VITALS: RESP 16
[2021-01-08] MEDS: Morphine Sulfate 4 MG/ML CARTRIDGE IVPUSH (19:43)
[2021-01-08] MEDS: iohexoL 350 MG/ML 100 ML INFUS..BTL IV (20:08)
[2021-01-08 21:36] VITALS: BP 142/49; PULSE 55; RESP 16; O2SAT 98
--- NOTE | 2021-01-09 13:40 | PC.NURSE ---
per rn Alexandr: lab called, gram + cocci clusters in 1 of 2 sets, vinod SAM notified
== END 2021-01-08 21:46 | disposition home or self-care (01) ==
PROVIDERS: Physician Assistant; Emergency Provider Emergency Medicine; PCP Internal Medicine
DX: R10.30 Lower abdominal pain, unspecified (principal); I10 Essential (primary) hypertension; E11.9 Type 2 diabetes mellitus without complications; Z79.899 Other long term (current) drug therapy; Z87.891 Personal history of nicotine dependence; Z79.82 Long term (current) use of aspirin
CPT/HCPCS: 36415; 74177; 80053; 80076; 81003; 82248; 83605; 83690; 84484; 85025; 85652; 86140; 87040; 87147; 87205; 93005; 96374; 99284; J2270; Q9967

== ENCOUNTER 2021-01-15 09:39 | Outpatient (REF) | payer MEDICARE, SELFPAY ==
--- NOTE | ~2021-01-15 | XR_ITS ---
EXAMINATION: XR CHEST CLINICAL INFORMATION: Cough. COMPARISON: Most recent chest radiograph dated 10/21/2020. TECHNIQUE: 2 views of the chest were obtained. FINDINGS: The lungs are clear. The cardiomediastinal silhouette is normal in size. There is no pleural effusion or pneumothorax. Chronic compression deformity with a lower thoracic spine, unchanged. XR/XR chest 2V IMPRESSION: No acute cardiopulmonary findings.
== END 2021-01-15 09:40 | disposition home or self-care (01) ==
LOC: HO.HMGCX 09:39
PROVIDERS: PCP Internal Medicine; Visit Provider Internal Medicine
DX: R05 Cough (principal); E11.40 Type 2 diabetes mellitus with diabetic neuropathy, unspecified; E11.65 Type 2 diabetes mellitus with hyperglycemia; E78.5 Hyperlipidemia, unspecified; Z79.4 Long term (current) use of insulin
CPT/HCPCS: 71046

== ENCOUNTER 2021-01-31 06:12 | Outpatient (REF) | payer MEDICARE, SELFPAY | END 2021-01-31 06:13 | disposition home or self-care (01) | LOC: HO.RADIR 06:12 | PROVIDERS: Visit Provider Internal Medicine | DX: Z13.89 Encounter for screening for other disorder (principal) ==

== ENCOUNTER 2021-02-06 03:23 | Inpatient (IN) | payer MEDICARE, SELFPAY ==
[2021-02-06] VITALS (15 sets, daily range): BP systolic 115–197; BP diastolic 62–84; PULSE 66–93; RESP 13–24; TEMP 36.5–37; O2SAT 94–100; BMI 31.6; BMI 28.9; BMI 29.1
--- NOTE | 2021-02-06 | ECG_ITS ---
Test Reason : N/V Blood Pressure : / mmHG Vent. Rate : 087 BPM Atrial Rate : 087 BPM P-R Int : 152 ms QRS Dur : 090 ms QT Int : 416 ms P-R-T Axes : 070 017 070 degrees QTc Int : 500 ms Sinus rhythm with occasional Premature ventricular complexes Nonspecific ST abnormality Prolonged QT Abnormal ECG When compared with ECG of 08-JAN-2021 16:21, Premature ventricular complexes are now Present Vent. rate has increased BY 30 BPM QT has lengthened Nonspecific ST abnormality is now Present Referred By: Belen Rodriguez Electronically Signed By:SOBEIDA BARON
--- NOTE | 2021-02-06 | ECG_ITS ---
Test Reason : CHEST PAIN Blood Pressure : / mmHG Vent. Rate : 086 BPM Atrial Rate : 086 BPM P-R Int : 158 ms QRS Dur : 094 ms QT Int : 414 ms P-R-T Axes : 079 034 078 degrees QTc Int : 495 ms Sinus rhythm with occasional Premature ventricular complexes and Fusion complexes Nonspecific ST abnormality Prolonged QT Abnormal ECG When compared with ECG of 06-FEB-2021 04:26, No significant change was found Referred By: Belen Rodriguez Electronically Signed By:SOBEIDA BARON
--- NOTE | ~2021-02-06 | CT_ITS ---
EXAMINATION: CTA CHEST, ABDOMEN AND PELVIS WITH CONTRAST CLINICAL INFORMATION: Pain. Assess for dissection. Patient reportedly has an elevated creatinine but as per Dr. Rodriguez, the benefits of the exam with a risk. COMPARISON: 01/08/2021 TECHNIQUE: Multidetector volumetric imaging was performed from the thoracic inlet through the pubic symphysis following administration of oral and 100 mL of Omnipaque 300 intravenous contrast. Sagittal and coronal reformatted images were obtained on the technologist workstation. This CT examination was performed using dose optimization techniques as appropriate, variously including the following: *Automated exposure control *Adjustment of mA and/or kV according to patient size (this includes techniques or standardized protocols for targeted exams where dose is matched to indication/reason for exam; i.e. extremities or head) *Use of iterative reconstruction technique DLP: 837 mGy-cm FINDINGS: CHEST: LUNGS: Emphysematous changes again noted. No infiltrate or new findings. MEDIASTINUM: Thoracic aorta appears intact. There is no evidence for any dissection or aneurysm. No intraneural hematoma changes grossly. There is no mass or pathologic lymphadenopathy. Small axial type hiatus hernia. PERICARDIUM/PLEURA: There is no significant effusion. No pleural mass or thickening. CHEST WALL/AXILLA: Unremarkable. ABDOMEN/PELVIS: LIVER, GALLBLADDER, BILIARY TREE: Changes of diffuse hepatic steatosis without any discrete lesion. Incidental tiny gallstones without acute inflammatory changes. No biliary ductal dilatation. PANCREAS: Coarse calcifications about the pancreatic parenchyma without a discrete mass or pancreatic duct dilatation. Appearance favors sequelae of previous pancreatitis. SPLEEN: Unremarkable. ADRENAL GLANDS: Unremarkable. KIDNEYS AND URETERS: The kidneys are normal in size, shape, and attenuation. No hydronephrosis or hydroureter or calculi seen. No perinephric stranding. BLADDER: Unremarkable. GASTROINTESTINAL TRACT: Minimal diverticula without acute inflammatory changes. No bowel wall thickening or evidence for ischemic bowel. ABDOMINAL WALL: No hernia is demonstrated. LYMPH NODES: Normal. VASCULAR: Evidence for previous aortobifemoral graft which appears patent. There is no progressive evidence of perigraft fluid collection or occlusion. Decreasing Fluid collection which is minimal about the left iliac limb. No significant narrowing. The origins of the major vessels appear patent but there is notable atherosclerotic changes at the origin. No definite thrombus seen. PELVIC VISCERA: Unremarkable. OSSEOUS STRUCTURES: Mild anterior wedging of a lower dorsal vertebral body appears similar. No new findings. CT/CT angio abdomen pelvis IMPRESSION: 1. No evidence for any dissection. 2. The aortobifem graft has measurably improved in overall appearance. The minor perigraft fluid/infiltration adjacent to left iliac limb especially has continued to improve with minor residual fluid noted. No new findings.
[2021-02-06] MEDS: ondansetron HCL 4 MG/2 ML VIAL IVPUSH ×2 (03:41→10:37)
[2021-02-06 03:44] LABS: Glucose, Whole Blood 442 mg/dL (60-115)
[2021-02-06 03:48] LABS: MANUAL DIFF FLAG NO
[2021-02-06 03:49] LABS: Basophils Percent Auto 0.2 % (0-2); Hematocrit 38.7 % (42-52); Hemoglobin 13.9 g/dl (14.0-18.0); Imm Gran Abs Auto 0.08 X10*3/uL (0.00-0.03); Imm Gran Pct Auto 0.5 % (0.0-0.4); Lymphocytes Absolute Auto 2.1 X10*3/uL (1.2-4.9); Lymphocytes Percent Auto 12.8 % (20-40); Mean Corpuscular HGB Conc 35.9 g/dl (31.0-36.0); Mean Corpuscular Hemoglobin 28.1 pg (27.0-33.0); Mean Corpuscular Volume 78.3 fL (80-98); Mean Platelet Volume 11.9 fL (9.4-12.4); Monocytes Absolute Auto 0.4 X10*3/uL (0.1-1.2); Monocytes Percent Auto 2.4 % (2-11); Neutrophils Absolute Auto 13.8 X10*3/uL (2.0-8.3); Neutrophils Percent Auto 84.1 % (45-73); Platelet Count 195 X10*3/uL (160-400); Red Blood Count 4.94 X10*6/uL (4.60-5.80); Red Cell Distribution Width 14.1 % (11.0-16.0); White Blood Count 16.4 X10*3/uL (4.8-10.8)
--- NOTE | 2021-02-06 03:50 | PC.NURSE ---
PT TO ROOM, CHG INTO GOWN AND AWAITING MD'S EVAL. PT ACTIVELY VOMITING IN ROOM. IV PLACED TO RAC, LABS DRAWN TO LAB, EKG OBTAINED TO MD. PT ON MONITOR WITH HR OF 87. PT MEDICATED WITH ZOFRAN IV FOR NAUSEA.
[2021-02-06 04:04] LABS: Alanine Aminotransferase 16 U/L (0-40); Albumin Level 4.7 g/dL (3.5-5.0); Alkaline Phosphatase 75 U/L (39-117); Anion Gap 25 (12-20); Aspartate Amino Transferase 17 U/L (5-37); Blood Urea Nitrogen 17 mg/dL (9-16); Calcium 9.9 mg/dL (8.4-10.2); Carbon Dioxide 19 mmol/L (22-29); Chloride 98 mmol/L (96-108); Creatinine Clr Calc Pharmacy 49.1; Estimated Glomerular Filt Rate 42; Glucose Random 486 mg/dL (60-115); Potassium 3.8 mmol/L (3.3-5.1); Sodium 138 mmol/L (135-145); Total Protein 7.8 g/dL (6.5-8.0)
[2021-02-06 04:14] LABS: Troponin-I High Sensitivity 402.2 ng/L (<3.5-35.0)
--- NOTE | 2021-02-06 04:14 | ED.GENADULT ---
HPI - General Adult General Chief complaint: General Medical Stated complaint: vomiting, nausea Time Seen by Provider: 02/06/21 04:05 Source: patient Mode of arrival: ambulatory Limitations: no limitations History of Present Illness HPI narrative: Patient comes emergency room complaining of diffuse abdominal pain for 3-4 days, nausea, vomiting, bilateral lower quadrant pain, back pain, not feeling well. Patient denies chest pain or shortness of breath. Patient states that he usually has chronic pain, especially in the bilateral lower quadrants, he was been evaluated in the past in this facility for the same issue. Patient has history of aortic bypass surgery at [facility] on July of 2020, complicated by infection. Patient reports that recently he was re-evaluated at [facility] for chronic inguinal pain, patient states that he was told that they do know what is causing the pain but he was started an oral morphine. Related Data Home Medications Medication Instructions Recorded Confirmed aspirin 81 mg tablet,delayed 81 mg PO DAILY 04/19/20 02/06/21 release (Adult Aspirin Regimen) cephalexin 500 mg capsule 500 mg PO TID 01/15/21 02/06/21 Previous Rx's Medication Instructions Recorded insulin syringe-needle U-100 1 mL #100 ea 03/09/20 27 gauge x 1/2 (BD Insulin Syringe) blood-glucose meter,continuous #1 ea 03/22/20 (Dexcom G6 Estate Tax Examiner) blood-glucose sensor (Dexcom G6 #3 ea 03/22/20 Sensor) blood-glucose transmitter (Dexcom #1 ea 03/22/20 G6 Transmitter) omeprazole 20 mg capsule,delayed 20 mg PO DAILY #90 cap 05/19/20 release pen needle, diabetic 31 gauge x #100 ea 10/12/2010/15 (Comfort EZ Pen [place]) cetirizine 10 mg tablet 10 mg PO BEDTIME PRN #30 tab 01/15/21 losartan 25 mg tablet 25 mg PO DAILY #30 tab 01/15/21 rosuvastatin 5 mg tablet 5 mg PO DAILY #30 tab 01/15/21 Allergies Allergy/AdvReac Type Severity Reaction Status Date / Time No Known Allergies Allergy Unknown UNKNOWN Verified 01/08/21 15:46 Review of Systems Review of Systems: Constitutional : No Weight loss, No Fever, No Chills, No Night Sweats, No Fatigue, No Malaise ENT/Mouth : No Hearing loss, No Ear Pain, No Nasal Congestion, No Sinus Pain, No Hoarseness, No sore throat, No Rhinorrhea, No Swallowing Difficulty Eyes: No Eye Pain, No Swelling, No Redness, No Foreign Body, No Discharge, No Vision Changes Cardiovascular : No Chest Pain, No SOB, No Dyspnea on Exertion, No Orthopnea, No Edema, No Palpitations Respiratory : No Cough, No Sputum, No Wheezing, No Smoke Exposure, No Dyspnea Gastrointestinal : Complaining of nausea, vomiting, diarrhea, diffuse abdominal pain, bilateral inguinal chronic pain Genitourinary : no irregular bleeding, No Dysuria, No Urinary Frequency, No Hematuria, No Urinary Incontinence, No Urgency, No Flank Pain, No Urinary Flow Changes, No Hesitancy Musculoskeletal : No joint pain, No Myalgias, No Joint Swelling Skin : No Skin Lesions, No rash Neuro : No Weakness, No Numbness, No Paresthesias, No Loss of Consciousness, No Dizziness, No Headache Psych : No Anxiety/Panic, No Depression, No SI/HI/AH/VH, No Social Issues, Heme/Lymph: No Bruising, No Bleeding,No Lymphadenopathy Endocrine : No Polyuria, No Polydipsia, No Temperature Intolerance [facility] Past Medical History Medical History BPH (benign prostatic hyperplasia) Chronic anemia Cough Diabetic retinopathy Goiter HLD (hyperlipidemia) HTN (hypertension) Lower back pain Neuropathy Post-nasal drainage PVD (peripheral vascular disease) T2DM (type 2 diabetes mellitus) Thyroid nodule Type 2 diabetes mellitus with diabetic neuropathy Vitamin D deficiency Surgical History H/O [id number] bypass Hx of basal cell carcinoma excision S/P aorto-bifemoral bypass surgery Family History Family History Father Diabetes Mother Diabetes Leukemia Skin cancer Alzheimers disease Dementia Social History Social History Household Members: Spouse Housing: House Do you presently have visiting nurse or other home services: Yes Alcohol intake: never Patient Tobacco Use Status: Former Tobacco user Cigarette Packs Per Day: 3 Years Smoked: 20 e-Cigarette/Vaping Use: Never Used Second Hand Smoke Exposure: No Use of substances other than those prescribed or required for medical reasons: No Advance Directives: No Advance Directives Information Provided: Yes service: Yes Current occupational status: retired Physical Exam Vital Signs: Vital Signs: Last Vital Signs Temp 97.7 F 02/06/21 07:08 Pulse 93 02/06/21 07:08 Resp 24 H 02/06/21 07:08 BP 148/74 H 02/06/21 07:08 Pulse Ox 97 02/06/21 07:08 Body Mass Index 31.6 Const: Other: Appearance: Alert. Oriented X3. Patient looks uncomfortable Eyes: Pupils equal, round and reactive to light. ENT: Pharynx normal. Neck: Normal inspection. Neck supple. No lymph nodes noted. No crepitus CVS: Normal heart rate and rhythm. Pulses normal. Normal S1 and S2 Respiratory: No respiratory distress. Breath sounds normal. No Wheezing. No rales Abdomen: Soft , diffuse abdominal tenderness, diffuse guarding, no rebound Skin: Skin warm and dry. Normal skin color. Normal skin turgor. Extremities: No lower extremity edema. No lower extremity edema. No Lacerations. No Rash Neuro: Oriented X 3. No motor deficit. No sensory deficit. Moving all extermities. No slurred speech. Course Course Course Narrative: I discussed the patient with Dr. Zuñiga, he will come and evaluate the patient, at this time, although troponin increased, the patient remains asymptomatic, no EKG changes from this morning. EKG is nonspecific. Dr. Zuñiga does not recommend heparin at this time. Cardiology consult has been placed. Sign-out given to Dr. Foote. Medical Decision Making Lab Data Result diagrams: 02/06/21 03:43 02/06/21 03:43 Labs: Lab Results 02/06/21 02/06/21 02/06/21 Range/Units 03:41 03:43 03:43 WBC 16.4 H (4.8-10.8) X10*3/uL RBC 4.94 (4.60-5.80) X10*6/uL Hgb 13.9 L (14.0-18.0) g/dl Hct 38.7 L (42-52) % MCV 78.3 L (80-98) fL MCH 28.1 (27.0-33.0) pg MCHC 35.9 (31.0-36.0) g/dl RDW 14.1 (11.0-16.0) % Plt Count 195 (160-400) X10*3/uL MPV 11.9 (9.4-12.4) fL Immature Gran % (Auto) 0.5 H (0.0-0.4) % Neut % (Auto) 84.1 H (45-73) % Lymph % (Auto) 12.8 L (20-40) % [place] % (Auto) 2.4 (2-11) % Eos % (Auto) 0.0 (0-4) % Baso % (Auto) 0.2 (0-2) % Lymph # (Auto) 2.1 (1.2-4.9) X10*3/uL [place] # (Auto) 0.4 (0.1-1.2) X10*3/uL Eos # (Auto) 0.0 (0.0-0.4) X10*3/uL Baso # (Auto) 0.0 (0.0-0.2) X10*3/uL Abs Immat Gran (auto) 0.08 H (0.00-0.03) X10*3/uL Absolute Neuts (auto) 13.8 H (2.0-8.3) X10*3/uL Absolute Nucleated RBC 0.000 (0.0-0.012) X10*3/uL Nucleated RBC % (auto) 0.0 (0.0-0.2) /100WBC PT (9.9-13.0) SEC INR (0.9-1.1) APTT (24.1-38.0) SEC O2 Saturation % ABG pH at Pt Temp (7.35-7.45) ABG pH (Temp Correct) (7.35-7.45) ABG pCO2 at Pt Temp (32-45) mmHg ABG pCO2 (Temp Corrct (32-45) mmHg ABG pO2 at Pt Temp (83-108) mmHg ABG pO2 (Temp Correct (83-108) ABG HCO3 (22-26) mmol/L ABG Base Excess (Actual) mmol/L Sodium 138 (135-145) mmol/L Potassium 3.8 (3.3-5.1) mmol/L Chloride 98 (96-108) mmol/L Carbon Dioxide 19 L (22-29) mmol/L Anion Gap 25 H (12-20) BUN 17 H (9-16) mg/dL Creatinine 1.61 H (0.5-1.4) mg/dL Estim Creat Clear Calc 49.1 Estimated GFR 42 POC Glucose 442 H* (60-115) mg/dL Random Glucose 486 H* (60-115) mg/dL Lactic Acid (0.5-2.0) mmol/L Calcium 9.9 D (8.4-10.2) mg/dL Total Bilirubin 1.0 (0.0-1.0) mg/dL AST 17 (5-37) U/L ALT 16 (0-40) U/L Alkaline Phosphatase 75 (39-117) U/L Troponin I High Sens (<3.5-35.0) ng/L Total Protein 7.8 (6.5-8.0) g/dL Albumin 4.7 (3.5-5.0) g/dL Lipase < 4 L (8-78) U/L Urine Color Urine Appearance Urine pH (5.0-8.0) Ur Specific [place] (1.005-1.025) Urine Protein (NEG-TRACE) MG/DL Urine Glucose (UA) (NEG) MG/DL Urine Ketones (NEG) MG/DL Urine Blood (NEG) Urine Nitrite (NEG) Ur Leukocyte Esterase (NEG) Urine RBC (0) /HPF Urine WBC (0-4) /HPF Ur Squamous Epith Cells /LPF Urine Bacteria /LPF Urine Mucus /LPF Acetone, Qual Negative (Negative) COVID-19 (SERINA) (Negative) COVID-19 Clin Com 02/06/21 02/06/21 02/06/21 Range/Units 03:43 05:04 05:07 WBC (4.8-10.8) X10*3/uL RBC (4.60-5.80) X10*6/uL Hgb (14.0-18.0) g/dl Hct (42-52) % MCV (80-98) fL MCH (27.0-33.0) pg MCHC (31.0-36.0) g/dl RDW (11.0-16.0) % Plt Count (160-400) X10*3/uL MPV (9.4-12.4) fL Immature Gran % (Auto) (0.0-0.4) % Neut % (Auto) (45-73) % Lymph % (Auto) (20-40) % [place] % (Auto) (2-11) % Eos % (Auto) (0-4) % Baso % (Auto) (0-2) % Lymph # (Auto) (1.2-4.9) X10*3/uL [place] # (Auto) (0.1-1.2) X10*3/uL Eos # (Auto) (0.0-0.4) X10*3/uL Baso # (Auto) (0.0-0.2) X10*3/uL Abs Immat Gran (auto) (0.00-0.03) X10*3/uL Absolute Neuts (auto) (2.0-8.3) X10*3/uL Absolute Nucleated RBC (0.0-0.012) X10*3/uL Nucleated RBC % (auto) (0.0-0.2) /100WBC PT (9.9-13.0) SEC INR (0.9-1.1) APTT (24.1-38.0) SEC O2 Saturation 93.0 % ABG pH at Pt Temp 7.39 (7.35-7.45) ABG pH (Temp Correct) 7.39 (7.35-7.45) ABG pCO2 at Pt Temp 25 L (32-45) mmHg ABG pCO2 (Temp Corrct 25 L (32-45) mmHg ABG pO2 at Pt Temp 76 L (83-108) mmHg ABG pO2 (Temp Correct 75 L (83-108) ABG HCO3 15 L (22-26) mmol/L ABG Base Excess (Actual) -7.2 mmol/L Sodium (135-145) mmol/L Potassium (3.3-5.1) mmol/L Chloride (96-108) mmol/L Carbon Dioxide (22-29) mmol/L Anion Gap (12-20) BUN (9-16) mg/dL Creatinine (0.5-1.4) mg/dL Estim Creat Clear Calc Estimated GFR POC Glucose (60-115) mg/dL Random Glucose (60-115) mg/dL Lactic Acid (0.5-2.0) mmol/L Calcium (8.4-10.2) mg/dL Total Bilirubin (0.0-1.0) mg/dL AST (5-37) U/L ALT (0-40) U/L Alkaline Phosphatase (39-117) U/L Troponin I High Sens 402.2 H* D (<3.5-35.0) ng/L Total Protein (6.5-8.0) g/dL Albumin (3.5-5.0) g/dL Lipase (8-78) U/L Urine Color Urine Appearance Urine pH (5.0-8.0) Ur Specific [place] (1.005-1.025) Urine Protein (NEG-TRACE) MG/DL Urine Glucose (UA) (NEG) MG/DL Urine Ketones (NEG) MG/DL Urine Blood (NEG) Urine Nitrite (NEG) Ur Leukocyte Esterase (NEG) Urine RBC (0) /HPF Urine WBC (0-4) /HPF Ur Squamous Epith Cells /LPF Urine Bacteria /LPF Urine Mucus /LPF Acetone, Qual (Negative) COVID-19 (SERINA) Negative (Negative) COVID-19 Clin Com See Note 02/06/21 02/06/21 02/06/21 Range/Units 05:54 05:54 06:25 WBC (4.8-10.8) X10*3/uL RBC (4.60-5.80) X10*6/uL Hgb (14.0-18.0) g/dl Hct (42-52) % MCV (80-98) fL MCH (27.0-33.0) pg MCHC (31.0-36.0) g/dl RDW (11.0-16.0) % Plt Count (160-400) X10*3/uL MPV (9.4-12.4) fL Immature Gran % (Auto) (0.0-0.4) % Neut % (Auto) (45-73) % Lymph % (Auto) (20-40) % [place] % (Auto) (2-11) % Eos % (Auto) (0-4) % Baso % (Auto) (0-2) % Lymph # (Auto) (1.2-4.9) X10*3/uL [place] # (Auto) (0.1-1.2) X10*3/uL Eos # (Auto) (0.0-0.4) X10*3/uL Baso # (Auto) (0.0-0.2) X10*3/uL Abs Immat Gran (auto) (0.00-0.03) X10*3/uL Absolute Neuts (auto) (2.0-8.3) X10*3/uL Absolute Nucleated RBC (0.0-0.012) X10*3/uL Nucleated RBC % (auto) (0.0-0.2) /100WBC PT 12.5 (9.9-13.0) SEC INR 1.1 (0.9-1.1) APTT 33.7 (24.1-38.0) SEC O2 Saturation % ABG pH at Pt Temp (7.35-7.45) ABG pH (Temp Correct) (7.35-7.45) ABG pCO2 at Pt Temp (32-45) mmHg ABG pCO2 (Temp Corrct (32-45) mmHg ABG pO2 at Pt Temp (83-108) mmHg ABG pO2 (Temp Correct (83-108) ABG HCO3 (22-26) mmol/L ABG Base Excess (Actual) mmol/L Sodium (135-145) mmol/L Potassium (3.3-5.1) mmol/L Chloride (96-108) mmol/L Carbon Dioxide (22-29) mmol/L Anion Gap (12-20) BUN (9-16) mg/dL Creatinine (0.5-1.4) mg/dL Estim Creat Clear Calc Estimated GFR POC Glucose (60-115) mg/dL Random Glucose (60-115) mg/dL Lactic Acid 2.0 (0.5-2.0) mmol/L Calcium (8.4-10.2) mg/dL Total Bilirubin (0.0-1.0) mg/dL AST (5-37) U/L ALT (0-40) U/L Alkaline Phosphatase (39-117) U/L Troponin I High Sens (<3.5-35.0) ng/L Total Protein (6.5-8.0) g/dL Albumin (3.5-5.0) g/dL Lipase (8-78) U/L Urine Color YELLOW Urine Appearance CLEAR Urine pH 5.5 (5.0-8.0) Ur Specific [place] 1.010 (1.005-1.025) Urine Protein 1+ H (NEG-TRACE) MG/DL Urine Glucose (UA) >=1000 H (NEG) MG/DL Urine Ketones >=80 (NEG) MG/DL Urine Blood NEG (NEG) Urine Nitrite NEG (NEG) Ur Leukocyte Esterase NEG (NEG) Urine RBC 0-2 (0) /HPF Urine WBC 0-2 (0-4) /HPF Ur Squamous Epith Cells TRACE /LPF Urine Bacteria NONE /LPF Urine Mucus TRACE /LPF Acetone, Qual (Negative) COVID-19 (SERINA) (Negative) COVID-19 Clin Com 02/06/21 02/06/21 Range/Units 06:34 06:44 WBC (4.8-10.8) X10*3/uL RBC (4.60-5.80) X10*6/uL Hgb (14.0-18.0) g/dl Hct (42-52) % MCV (80-98) fL MCH (27.0-33.0) pg MCHC (31.0-36.0) g/dl RDW (11.0-16.0) % Plt Count (160-400) X10*3/uL MPV (9.4-12.4) fL Immature Gran % (Auto) (0.0-0.4) % Neut % (Auto) (45-73) % Lymph % (Auto) (20-40) % [place] % (Auto) (2-11) % Eos % (Auto) (0-4) % Baso % (Auto) (0-2) % Lymph # (Auto) (1.2-4.9) X10*3/uL [place] # (Auto) (0.1-1.2) X10*3/uL Eos # (Auto) (0.0-0.4) X10*3/uL Baso # (Auto) (0.0-0.2) X10*3/uL Abs Immat Gran (auto) (0.00-0.03) X10*3/uL Absolute Neuts (auto) (2.0-8.3) X10*3/uL Absolute Nucleated RBC (0.0-0.012) X10*3/uL Nucleated RBC % (auto) (0.0-0.2) /100WBC PT (9.9-13.0) SEC INR (0.9-1.1) APTT (24.1-38.0) SEC O2 Saturation % ABG pH at Pt Temp (7.35-7.45) ABG pH (Temp Correct) (7.35-7.45) ABG pCO2 at Pt Temp (32-45) mmHg ABG pCO2 (Temp Corrct (32-45) mmHg ABG pO2 at Pt Temp (83-108) mmHg ABG pO2 (Temp Correct (83-108) ABG HCO3 (22-26) mmol/L ABG Base Excess (Actual) mmol/L Sodium (135-145) mmol/L Potassium (3.3-5.1) mmol/L Chloride (96-108) mmol/L Carbon Dioxide (22-29) mmol/L Anion Gap (12-20) BUN (9-16) mg/dL Creatinine (0.5-1.4) mg/dL Estim Creat Clear Calc Estimated GFR POC Glucose 398 H* (60-115) mg/dL Random Glucose (60-115) mg/dL Lactic Acid (0.5-2.0) mmol/L Calcium (8.4-10.2) mg/dL Total Bilirubin (0.0-1.0) mg/dL AST (5-37) U/L ALT (0-40) U/L Alkaline Phosphatase (39-117) U/L Troponin I High Sens 710.9 H* D (<3.5-35.0) ng/L Total Protein (6.5-8.0) g/dL Albumin (3.5-5.0) g/dL Lipase (8-78) U/L Urine Color Urine Appearance Urine pH (5.0-8.0) Ur Specific [place] (1.005-1.025) Urine Protein (NEG-TRACE) MG/DL Urine Glucose (UA) (NEG) MG/DL Urine Ketones (NEG) MG/DL Urine Blood (NEG) Urine Nitrite (NEG) Ur Leukocyte Esterase (NEG) Urine RBC (0) /HPF Urine WBC (0-4) /HPF Ur Squamous Epith Cells /LPF Urine Bacteria /LPF Urine Mucus /LPF Acetone, Qual (Negative) COVID-19 (SERINA) (Negative) COVID-19 Clin Com Discharge Plan Discharge Clinical Impression: Abdominal pain, Elevated troponin Prescriptions: No Action (DME) insulin syringe-needle U-100 [BD Insulin Syringe] 1 mL 27 gauge x 1/2 syringe See Rx Instructions .ROUTE .MEDSUPPLY Qty: 100 RF: 0 (DME) Dexcom G6 Sensor Device See Rx Instructions .ROUTE .MEDSUPPLY Qty: 3 RF: 11 (DME) Dexcom G6 Transmitter Device See Rx Instructions .ROUTE .MEDSUPPLY Qty: 1 RF: 11 (DME) Dexcom G6 Estate Tax Examiner Misc See Rx Instructions .ROUTE .MEDSUPPLY Qty: 1 RF: 0 aspirin [Adult Aspirin Regimen] 81 mg tablet,delayed release (DR/EC) 81 mg PO DAILY RF: 0 (DME) pen needle, diabetic [Comfort EZ Pen [place]] 31 gauge x 5/16 needle See Rx Instructions .ROUTE .MEDSUPPLY Qty: 100 RF: 5 cephalexin 500 mg capsule 500 mg PO TID RF: 0 rosuvastatin 5 mg tablet 5 mg PO DAILY Qty: 30 RF: 5 losartan 25 mg tablet 25 mg PO DAILY Qty: 30 RF: 2 cetirizine 10 mg tablet 10 mg PO BEDTIME PRN (Reason: allergy symptoms) Qty: 30 RF: 1 omeprazole 20 mg capsule,delayed release(DR/EC) 20 mg PO DAILY Qty: 90 RF: 3
--- NOTE | 2021-02-06 04:21 | ECG_ITS ---
Test Reason : N/V Blood Pressure : / mmHG Vent. Rate : 080 BPM Atrial Rate : 080 BPM P-R Int : 150 ms QRS Dur : 088 ms QT Int : 452 ms P-R-T Axes : 077 030 071 degrees QTc Int : 521 ms Sinus rhythm with Premature ventricular complexes or Fusion complexes Nonspecific ST abnormality Prolonged QT Abnormal ECG When compared with ECG of 06-FEB-2021 03:47, Fusion complexes are now Present Referred By: Belen Rodriguez Electronically Signed By:SOBEIDA BARON
[2021-02-06 04:23] LABS: Acetone, serum QL Negative (Negative)
[2021-02-06] MEDS: Prochlorperazine Edisylate 10 MG/2 ML VIAL IVPUSH (04:29)
[2021-02-06] MEDS: Insulin Regular, Human 100 UNIT/ML 3 ML VIAL 10 UNIT IVPUSH (04:29)
[2021-02-06 04:30] LABS: Lipase < 4 U/L (8-78)
[2021-02-06] MEDS: HYDROmorphone HCl 1 MG/ML SYRINGE IVPUSH (04:43)
--- NOTE | 2021-02-06 04:50 | PC.NURSE ---
PT RETURNS FROM CT IN STRETCHER.
[2021-02-06] MEDS: iohexoL 350 MG/ML 100 ML INFUS..BTL 85 ML IV (04:54)
[2021-02-06 05:09] LABS: ABG Refer to POC result
[2021-02-06 05:11] LABS: ABG Base Excess -7.2 mmol/L; ABG HCO3 15 mmol/L (22-26); ABG pCO2 25 mmHg (32-45); ABG pCO2 TC 25 mmHg (32-45); ABG pH 7.39 (7.35-7.45); ABG pH TC 7.39 (7.35-7.45); ABG pO2 76 mmHg (83-108); ABG pO2 TC 75 (83-108)
--- NOTE | 2021-02-06 05:14 | PC.NURSE ---
PT RATING PAIN 7/10. NS UP AND RUNNING W/O, SITE INTACT. PT CONSTANTLY REQUESTING WATER TO DRINK. PT REMAINS ON MONITOR WITH A HR OF 86. COVID SWAB OBTAINED TO LAB. AT BEDSIDE WITH PT.
[2021-02-06 05:30] LABS: COVID-19 Test Negative (Negative); IDNOW Serial# 9DD0AD1C
--- NOTE | 2021-02-06 05:37 | PC.NURSE ---
MED REC DONE
--- NOTE | 2021-02-06 06:16 | PC.NURSE ---
LABS AND BC X 2 OBTAINED TO LAB. NS INFUSED W/O DIFFICULTY. PT USING URINAL AND URINE SENT TO LAB. PT ALERT, RESPIRATIONS EASY, N/L. SKIN W/D. WILL CONTINUE TO MONITOR PT
[2021-02-06 06:33] LABS: Glucose Urine UA >=1000 MG/DL (NEG); Leukocyte Esterase Urine NEG (NEG); Nitrite Urine NEG (NEG); PH 5.5 (5.0-8.0); UACC Culture Trigger NO; Urine Blood NEG (NEG); Urine Ketones >=80 MG/DL (NEG); Urine Protein 1+ MG/DL (NEG-TRACE)
[2021-02-06 06:38] LABS: Appearance Urine CLEAR; Color Urine YELLOW
[2021-02-06 06:39] LABS: Glucose, Whole Blood 398 mg/dL (60-115)
[2021-02-06 06:45] LABS: Mucus Urine TRACE /LPF; RBC Urine 0-2 /HPF (0); Squamous Epithelial Cell Urine TRACE /LPF; WBC Urine 0-2 /HPF (0-4)
--- NOTE | 2021-02-06 06:49 | PC.NURSE ---
REPEAT BS 398, DR FIELDS AWARE. REPEAT TROPONIN OBTAINED. REPEAT EKG OBTAINED TO .
[2021-02-06 06:52] LABS: INTERNATIONAL NORM RATIO 1.1 (0.9-1.1); Prothrombin Time 12.5 SEC (9.9-13.0)
[2021-02-06 06:54] LABS: Partial Thromboplastin Time 33.7 SEC (24.1-38.0)
[2021-02-06 07:25] LABS: Troponin-I High Sensitivity 710.9 ng/L (<3.5-35.0)
--- NOTE | 2021-02-06 07:51 | PC.NURSE ---
md aware of elevated repeat trop. consult to cardiology who is coming to assess patient. patient denies chest pain. resting on stretcher at this time.
[2021-02-06 08:06] LABS: Glucose, Whole Blood 382 mg/dL (60-115)
[2021-02-06] MEDS: Insulin Glargine,Hum.rec.anlog 100 UNIT/ML 10 ML VIAL 10 UNIT SUBCUT (08:36)
[2021-02-06] MEDS: Heparin Sodium,Porcine 5,000 UNIT/ML VIAL 4000 UNIT IVPUSH (10:20)
[2021-02-06 10:24] LABS: INTERNATIONAL NORM RATIO 1.1 (0.9-1.1); Prothrombin Time 12.8 SEC (9.9-13.0)
[2021-02-06] MEDS: Heparin Sodium,Porcine/1/2NS 25,000 UNIT/250 ML IV.SOLN 10 UNIT IVCONT (10:24)
[2021-02-06 10:27] LABS: PTT Heparin Drip 32.7 SEC (53-77.9)
--- NOTE | 2021-02-06 10:43 | PM.CNCAR ---
History of Present Illness History of Present Illness Date of Service: 02/06/21 Chief complaint: vomiting, nausea Narrative: This is a cardiology consultation regarding elevated troponins. Patient denies any known coronary artery disease myocardial infarction or prior coronary interventions. It seems that he has significant vascular disease and has a history of aortobifem bypass surgery on July this year. He states that he has been having abdominal pain in the lower part and has also been having vomiting and that led to the hospitalization. However he denies any chest pain or any angina type symptoms. Troponins were checked and they were found to be elevated and has been also seen in consultation. Review of Systems Review of Systems: Yes all other systems are reviewed and are negative Cardiovascular: Cardiovascular: Reports as per HPI, Reports no additional cardiovascular complaints, Denies acrocyanosis, Denies cool extremities, Denies painful fingertips, Denies chest pain, Denies chest pain at rest, Denies diaphoresis, Denies syncope, Denies irregular heart rhythm, Denies claudication, Denies leg edema, Denies lightheadedness, Denies palpitations and Denies dyspnea Respiratory: Respiratory: Denies dyspnea Gastrointestinal: Comments: Abdominal pain, vomiting+ Neurologic: Denies syncope Endocrine: Endocrine: Denies palpitations PMFSH Past Medical History Medical History BPH (benign prostatic hyperplasia) Chronic anemia Cough Diabetic retinopathy Goiter HLD (hyperlipidemia) HTN (hypertension) Lower back pain Neuropathy Post-nasal drainage PVD (peripheral vascular disease) T2DM (type 2 diabetes mellitus) Thyroid nodule Type 2 diabetes mellitus with diabetic neuropathy Vitamin D deficiency Family History Family History Father Diabetes Mother Diabetes Leukemia Skin cancer Alzheimers disease Dementia Surgical History Surgical History H/O [id number] bypass Hx of basal cell carcinoma excision S/P aorto-bifemoral bypass surgery Social History Social History Household Members: Spouse Housing: House Do you presently have visiting nurse or other home services: Yes Alcohol intake: never Patient Tobacco Use Status: Former Tobacco user Cigarette Packs Per Day: 3 Years Smoked: 20 e-Cigarette/Vaping Use: Never Used Second Hand Smoke Exposure: No Use of substances other than those prescribed or required for medical reasons: No Advance Directives: No Advance Directives Information Provided: Yes service: Yes Current occupational status: retired Meds Allergies Allergy/AdvReac Type Severity Reaction Status Date / Time No Known Allergies Allergy Unknown UNKNOWN Verified 01/08/21 15:46 Active Medications: Current Medications Generic Name Dose Route Start Last Admin Trade Name Freq PRN Reason Stop Dose Admin Heparin Sodium (Porcine) 3,700 unit 02/06/21 09:55 Heparin Sodium,Porcine 5,000 Unit/Ml Vial 40 unit/kg (3700 unit) IVPUSH PROTOCOL BOLUS PRN 40 unit/kg - Heparin Protocol Protocol Heparin Sodium (Porcine) 7,300 unit 02/06/21 09:55 Heparin Sodium,Porcine 5,000 Unit/Ml Vial 80 unit/kg (7300 unit) IVPUSH PROTOCOL BOLUS PRN 80 unit/kg - Heparin Protocol Protocol Heparin Sodium/Sodium Chloride 25,000 unit in 250 mls @ 0 mls/hr 02/06/21 10:00 02/06/21 10:24 IVCONT 10.94 units/kg/hr .Q0M TESS 10 mls/hr Administration Protocol Per Protocol Home Medications Medication Instructions Recorded Confirmed Last Taken Type aspirin 81 mg tablet,delayed 81 mg PO DAILY 04/19/20 02/06/21 Unknown History release (Adult Aspirin Regimen) cephalexin 500 mg capsule 500 mg PO TID 01/15/21 02/06/21 Unknown History Physical Exam Vital Signs: Vital Signs: Last Vital Signs Temp 98.1 F 02/06/21 08:01 Pulse 82 02/06/21 10:28 Resp 15 02/06/21 10:28 BP 150/75 H 02/06/21 10:28 Pulse Ox 98 02/06/21 10:28 Body Mass Index 28.9 Const: General: cooperative and no acute distress HENMT: Other: Unremarkable Neck: Neck: Yes normal visual inspection Chest: Chest palpation & inspection: normal inspection of the chest Resp: Auscultation: clear to auscultation bilaterally, no crackles and no wheezes Cardio: Jugular venous distension: no JVD Palpation: normal PMI Heart sounds: S1 normal heart sound present, S2 normal heart sound present, no gallops, no murmurs and no rubs GI: Palpation (GI): Soft to palpation Back/Spine/Pelvis: Other: unremarkable Skin: General skin exam: no rashes or lesions noted Neuro: Cranial nerves: Yes Other cranial nerve findings present Extrem: General: Yes no clubbing, cyanosis or edema Psych: Mental Status: other Results Labs and Meds Result diagrams: 02/06/21 03:43 02/06/21 03:43 Lab results: Laboratory Results - last 24 hr 02/06/21 02/06/21 02/06/21 03:41 03:43 03:43 WBC 16.4 H RBC 4.94 Hgb 13.9 L Hct 38.7 L MCV 78.3 L MCH 28.1 MCHC 35.9 RDW 14.1 Plt Count 195 MPV 11.9 Immature Gran % (Auto) 0.5 H Neut % (Auto) 84.1 H Lymph % (Auto) 12.8 L [place] % (Auto) 2.4 Eos % (Auto) 0.0 Baso % (Auto) 0.2 Lymph # (Auto) 2.1 [place] # (Auto) 0.4 Eos # (Auto) 0.0 Baso # (Auto) 0.0 Abs Immat Gran (auto) 0.08 H Absolute Neuts (auto) 13.8 H Absolute Nucleated RBC 0.000 Nucleated RBC % (auto) 0.0 PT INR APTT PTT (Heparin Protocol) O2 Saturation ABG pH at Pt Temp ABG pH (Temp Correct) ABG pCO2 at Pt Temp ABG pCO2 (Temp Corrct ABG pO2 at Pt Temp ABG pO2 (Temp Correct ABG HCO3 ABG Base Excess (Actual) Sodium 138 Potassium 3.8 Chloride 98 Carbon Dioxide 19 L Anion Gap 25 H BUN 17 H Creatinine 1.61 H Estim Creat Clear Calc 49.1 Estimated GFR 42 POC Glucose 442 H* Random Glucose 486 H* Lactic Acid Calcium 9.9 D Total Bilirubin 1.0 AST 17 ALT 16 Alkaline Phosphatase 75 Troponin I High Sens Total Protein 7.8 Albumin 4.7 Lipase < 4 L Urine Color Urine Appearance Urine pH Ur Specific [place] Urine Protein Urine Glucose (UA) Urine Ketones Urine Blood Urine Nitrite Ur Leukocyte Esterase Urine RBC Urine WBC Ur Squamous Epith Cells Urine Bacteria Urine Mucus Acetone, Qual Negative COVID-19 ([facility]) COVID-19 Clin Com 02/06/21 02/06/21 02/06/21 03:43 05:04 05:07 WBC RBC Hgb Hct MCV MCH MCHC RDW Plt Count MPV Immature Gran % (Auto) Neut % (Auto) Lymph % (Auto) [place] % (Auto) Eos % (Auto) Baso % (Auto) Lymph # (Auto) [place] # (Auto) Eos # (Auto) Baso # (Auto) Abs Immat Gran (auto) Absolute Neuts (auto) Absolute Nucleated RBC Nucleated RBC % (auto) PT INR APTT PTT (Heparin Protocol) O2 Saturation 93.0 ABG pH at Pt Temp 7.39 ABG pH (Temp Correct) 7.39 ABG pCO2 at Pt Temp 25 L ABG pCO2 (Temp Corrct 25 L ABG pO2 at Pt Temp 76 L ABG pO2 (Temp Correct 75 L ABG HCO3 15 L ABG Base Excess (Actual) -7.2 Sodium Potassium Chloride Carbon Dioxide Anion Gap BUN Creatinine Estim Creat Clear Calc Estimated GFR POC Glucose Random Glucose Lactic Acid Calcium Total Bilirubin AST ALT Alkaline Phosphatase Troponin I High Sens 402.2 H* D Total Protein Albumin Lipase Urine Color Urine Appearance Urine pH Ur Specific [place] Urine Protein Urine Glucose (UA) Urine Ketones Urine Blood Urine Nitrite Ur Leukocyte Esterase Urine RBC Urine WBC Ur Squamous Epith Cells Urine Bacteria Urine Mucus Acetone, Qual COVID-19 ([facility]) Negative COVID-19 Clin Com See Note 02/06/21 02/06/21 02/06/21 05:54 05:54 06:25 WBC RBC Hgb Hct MCV MCH MCHC RDW Plt Count MPV Immature Gran % (Auto) Neut % (Auto) Lymph % (Auto) [place] % (Auto) Eos % (Auto) Baso % (Auto) Lymph # (Auto) [place] # (Auto) Eos # (Auto) Baso # (Auto) Abs Immat Gran (auto) Absolute Neuts (auto) Absolute Nucleated RBC Nucleated RBC % (auto) PT 12.5 INR 1.1 APTT 33.7 PTT (Heparin Protocol) O2 Saturation ABG pH at Pt Temp ABG pH (Temp Correct) ABG pCO2 at Pt Temp ABG pCO2 (Temp Corrct ABG pO2 at Pt Temp ABG pO2 (Temp Correct ABG HCO3 ABG Base Excess (Actual) Sodium Potassium Chloride Carbon Dioxide Anion Gap BUN Creatinine Estim Creat Clear Calc Estimated GFR POC Glucose Random Glucose Lactic Acid 2.0 Calcium Total Bilirubin AST ALT Alkaline Phosphatase Troponin I High Sens Total Protein Albumin Lipase Urine Color YELLOW Urine Appearance CLEAR Urine pH 5.5 Ur Specific [place] 1.010 Urine Protein 1+ H Urine Glucose (UA) >=1000 H Urine Ketones >=80 Urine Blood NEG Urine Nitrite NEG Ur Leukocyte Esterase NEG Urine RBC 0-2 Urine WBC 0-2 Ur Squamous Epith Cells TRACE Urine Bacteria NONE Urine Mucus TRACE Acetone, Qual COVID-19 ([facility]) COVID-19 Clin Com 02/06/21 02/06/21 02/06/21 06:34 06:44 07:59 WBC RBC Hgb Hct MCV MCH MCHC RDW Plt Count MPV Immature Gran % (Auto) Neut % (Auto) Lymph % (Auto) [place] % (Auto) Eos % (Auto) Baso % (Auto) Lymph # (Auto) [place] # (Auto) Eos # (Auto) Baso # (Auto) Abs Immat Gran (auto) Absolute Neuts (auto) Absolute Nucleated RBC Nucleated RBC % (auto) PT INR APTT PTT (Heparin Protocol) O2 Saturation ABG pH at Pt Temp ABG pH (Temp Correct) ABG pCO2 at Pt Temp ABG pCO2 (Temp Corrct ABG pO2 at Pt Temp ABG pO2 (Temp Correct ABG HCO3 ABG Base Excess (Actual) Sodium Potassium Chloride Carbon Dioxide Anion Gap BUN Creatinine Estim Creat Clear Calc Estimated GFR POC Glucose 398 H* 382 H* Random Glucose Lactic Acid Calcium Total Bilirubin AST ALT Alkaline Phosphatase Troponin I High Sens 710.9 H* D Total Protein Albumin Lipase Urine Color Urine Appearance Urine pH Ur Specific [place] Urine Protein Urine Glucose (UA) Urine Ketones Urine Blood Urine Nitrite Ur Leukocyte Esterase Urine RBC Urine WBC Ur Squamous Epith Cells Urine Bacteria Urine Mucus Acetone, Qual COVID-19 ([facility]) COVID-19 Clin Com 02/06/21 10:10 WBC RBC Hgb Hct MCV MCH MCHC RDW Plt Count MPV Immature Gran % (Auto) Neut % (Auto) Lymph % (Auto) [place] % (Auto) Eos % (Auto) Baso % (Auto) Lymph # (Auto) [place] # (Auto) Eos # (Auto) Baso # (Auto) Abs Immat Gran (auto) Absolute Neuts (auto) Absolute Nucleated RBC Nucleated RBC % (auto) PT 12.8 INR 1.1 APTT PTT (Heparin Protocol) 32.7 L O2 Saturation ABG pH at Pt Temp ABG pH (Temp Correct) ABG pCO2 at Pt Temp ABG pCO2 (Temp Corrct ABG pO2 at Pt Temp ABG pO2 (Temp Correct ABG HCO3 ABG Base Excess (Actual) Sodium Potassium Chloride Carbon Dioxide Anion Gap BUN Creatinine Estim Creat Clear Calc Estimated GFR POC Glucose Random Glucose Lactic Acid Calcium Total Bilirubin AST ALT Alkaline Phosphatase Troponin I High Sens Total Protein Albumin Lipase Urine Color Urine Appearance Urine pH Ur Specific [place] Urine Protein Urine Glucose (UA) Urine Ketones Urine Blood Urine Nitrite Ur Leukocyte Esterase Urine RBC Urine WBC Ur Squamous Epith Cells Urine Bacteria Urine Mucus Acetone, Qual COVID-19 ([facility]) COVID-19 Clin Com ECG Interpretation: EKG with sinus rhythm at 80/Min; nonspecific ST-T changes; PVC. Imaging Radiologist's impression: Impressions Abdomen/Pelvis CTA 02/06/21 04:17 IMPRESSION: 1. No evidence for any dissection. 2. The aortobifem graft has measurably improved in overall appearance. The minor perigraft fluid/infiltration adjacent to left iliac limb especially has continued to improve with minor residual fluid noted. No new findings. Chest CTA 02/06/21 04:17 IMPRESSION: 1. No evidence for any dissection. 2. The aortobifem graft has measurably improved in overall appearance. The minor perigraft fluid/infiltration adjacent to left iliac limb especially has continued to improve with minor residual fluid noted. No new findings. Assessment and Plan (1) NSTEMI (non-ST elevated myocardial infarction): Status: Acute (2) S/P aorto-bifemoral bypass surgery: Status: Acute (3) Abdominal pain: Status: Acute Pertinent data reviewed. Creatinine is 1.61. Prior to this, it was 1.28 in December. High sensitive troponins are 402 and 710. In December it was 19.6. CT of the abdomen with no acute findings with regard to the aortobifem graft. Overall, this is secondary NSTEMI related to his abdominal pain. Considering the vascular history, probably has underlying coronary disease as well. Will treat him as NSTEMI. IV heparin drip, aspirin, statins. Echocardiogram. Once abdominal pain/vomiting concerns are addressed, then potentially diagnostic cardiac catheterization. Will follow. Discussed with family at bedside. Procedures Date of Service Date of Service: 02/06/21
--- NOTE | 2021-02-06 11:19 | P.HPHOSP_ITS ---
History of Present Illness Date of Service: 02/06/21 <Cornelia Salgado NP - Last Filed: 02/06/21 13:54> Chief Complaint: Chest pain <Cornelia Salgado NP - Last Filed: 02/06/21 13:54> 70-year-old man presenting to the ER with complaints of nausea, vomiting, diffuse abdominal pain and lower quadrant pain over the last 3-4 days. Apparently he was camping and he started feeling sick with nausea and vomiting. Apparently, He denied chest pain or shortness of breath. He does have a history of chronic pain syndrome. He does have a history of aortic bypass at [facility] in July of 2020. Initial troponin 402.2, 710.9. Chest CTA and abd CT showed no evidence of dissection. he was noted to have an elevated white blood cell count of 16.4 with no clear evidence infection. He was started on IV heparin drip in the ER. He will be admitted for further management and treatment of NSTEMI. <Cornelia Salgado NP - Last Filed: 02/06/21 13:54> Review of Systems Review of Systems: Denies any recent fever chills or decrease in appetite respiratory denies any shortness of breath coverage production cardiovascular denies chest pain gastrointestinal denies any dysphagia abdominal pain nausea vomiting or diarrhea genitourinary denies any dysuria frequency or hematuria musculoskeletal denies any joint pain or swelling neuropsych denies any weakness or seizures all other systems reviewed are negative <Cornelia Salgado NP - Last Filed: 02/06/21 13:54> [facility] Medical History: Medical History BPH (benign prostatic hyperplasia) Chronic anemia Cough Diabetic retinopathy Goiter HLD (hyperlipidemia) HTN (hypertension) Lower back pain Neuropathy Post-nasal drainage PVD (peripheral vascular disease) T2DM (type 2 diabetes mellitus) Thyroid nodule Type 2 diabetes mellitus with diabetic neuropathy Vitamin D deficiency <Cornelia Salgado NP - Last Filed: 02/06/21 13:54> Family History: Family History Father Diabetes Mother Diabetes Leukemia Skin cancer Alzheimers disease Dementia <Cornelia Salgado NP - Last Filed: 02/06/21 13:54> Surgical History: Surgical History H/O [id number]-[id number] bypass Hx of basal cell carcinoma excision S/P aorto-bifemoral bypass surgery <Cornelia Salgado NP - Last Filed: 02/06/21 13:54> Social History: Social History Household Members: Spouse Housing: House Do you presently have visiting nurse or other home services: Yes Alcohol intake: never Patient Tobacco Use Status: Former Tobacco user Cigarette Packs Per Day: 3 Years Smoked: 20 e-Cigarette/Vaping Use: Never Used Second Hand Smoke Exposure: No Use of substances other than those prescribed or required for medical reasons: No Advance Directives: No Advance Directives Information Provided: Yes service: Yes Current occupational status: retired <Cornelia Salgado NP - Last Filed: 02/06/21 13:54> Meds Allergies/Adverse reactions: Allergies Allergy/AdvReac Type Severity Reaction Status Date / Time No Known Allergies Allergy Unknown UNKNOWN Verified 01/08/21 15:46 <Cornelia Salgado NP - Last Filed: 02/06/21 13:54> Active Medications: Current Medications Generic Name Dose Route Start Last Admin Trade Name Freq PRN Reason Stop Dose Admin Acetaminophen 650 mg 02/06/21 11:11 Acetaminophen 325 Mg Tablet PO Q6H PRN Pain, Mild (Pain Scale 1-3) Dextrose 25 gm 02/06/21 11:16 Dextrose 50 % 25 Gm/50 Ml Vial IVPUSH Q15M PRN per Hypoglycemia Standing Ord. Protocol Glucose 15 gm 02/06/21 11:16 Glucose Gel 15 Gm Gel..Gram. PO Q15M PRN per Hypoglycemia Standing Ord. Protocol Heparin Sodium (Porcine) 3,700 unit 02/06/21 09:55 Heparin Sodium,Porcine 5,000 Unit/Ml Vial 40 unit/kg (3700 unit) IVPUSH PROTOCOL BOLUS PRN 40 unit/kg - Heparin Protocol Protocol Heparin Sodium (Porcine) 7,300 unit 02/06/21 09:55 Heparin Sodium,Porcine 5,000 Unit/Ml Vial 80 unit/kg (7300 unit) IVPUSH PROTOCOL BOLUS PRN 80 unit/kg - Heparin Protocol Protocol Heparin Sodium/Sodium Chloride 25,000 unit in 250 mls @ 0 mls/hr 02/06/21 10:00 02/06/21 10:24 IVCONT 10.94 units/kg/hr .Q0M [facility] 10 mls/hr Administration Protocol Per Protocol Insulin Human Lispro 0 unit 02/06/21 11:30 Insulin Lispro 100 Unit/Ml 3 Ml Vial SUBCUT QIDACHS TESS Protocol Sodium Chloride 3 ml 02/06/21 16:00 0.9 % Sodium Chloride Flush 3 Ml Syringe IVFLUSH QSHIFT [facility] <Cornelia Salgado NP - Last Filed: 02/06/21 13:54> Home medications: Home Medications Medication Instructions Recorded Confirmed Last Taken Type aspirin 81 mg tablet,delayed 81 mg PO DAILY 04/19/20 02/06/21 Unknown History release (Adult Aspirin Regimen) cephalexin 500 mg capsule 500 mg PO TID 01/15/21 02/06/21 Unknown History <Cornelia Salgado NP - Last Filed: 02/06/21 13:54> Physical Exam Vital Signs and Narrative: Vital Signs: Last Vital Signs Temp 98.1 F 02/06/21 08:01 Pulse 82 02/06/21 10:28 Resp 15 02/06/21 10:28 BP 150/75 H 02/06/21 10:28 Pulse Ox 98 02/06/21 10:28 Body Mass Index 28.9 <Cornelia Salgado NP - Last Filed: 02/06/21 13:54> Appearing in no acute distress head is normocephalic atraumatic eyes pupils are PERRLA sclera is anicteric mouth throat mucous membranes are intact and moist neck is supple no lymphadenopathy, no JVD noted lung sounds are clear to auscultation heart regular rate rhythm, clear S1, S2 positive bowel sounds, abdomen is soft, nontender neuro patient is alert x3, no focal deficits <Cornelia Salgado NP - Last Filed: 02/06/21 13:54> Results Labs CBC and Chem 7: : 02/06/21 03:43 02/06/21 03:43 <Cornelia Salgado NP - Last Filed: 02/06/21 13:54> Labs: Laboratory Results - last 24 hr 02/06/21 02/06/21 02/06/21 03:41 03:43 03:43 MCV 78.3 L MCH 28.1 MCHC 35.9 RDW 14.1 Plt Count 195 MPV 11.9 Immature Gran % (Auto) 0.5 H Neut % (Auto) 84.1 H Lymph % (Auto) 12.8 L [place] % (Auto) 2.4 Eos % (Auto) 0.0 Baso % (Auto) 0.2 Lymph # (Auto) 2.1 [place] # (Auto) 0.4 Eos # (Auto) 0.0 Baso # (Auto) 0.0 Abs Immat Gran (auto) 0.08 H Absolute Neuts (auto) 13.8 H Absolute Nucleated RBC 0.000 Nucleated RBC % (auto) 0.0 PT INR APTT PTT (Heparin Protocol) O2 Saturation ABG pH at Pt Temp ABG pH (Temp Correct) ABG pCO2 at Pt Temp ABG pCO2 (Temp Corrct ABG pO2 at Pt Temp ABG pO2 (Temp Correct ABG HCO3 ABG Base Excess (Actual) Anion Gap 25 H Estim Creat Clear Calc 49.1 Estimated GFR 42 POC Glucose 442 H* Random Glucose 486 H* Lactic Acid Calcium 9.9 D Total Bilirubin 1.0 AST 17 ALT 16 Alkaline Phosphatase 75 Troponin I High Sens Total Protein 7.8 Albumin 4.7 Lipase < 4 L Urine Color Urine Appearance Urine pH Ur Specific [place] Urine Protein Urine Glucose (UA) Urine Ketones Urine Blood Urine Nitrite Ur Leukocyte Esterase Urine RBC Urine WBC Ur Squamous Epith Cells Urine Bacteria Urine Mucus Acetone, Qual Negative COVID-19 (SERINA) COVID-19 Clin Com 02/06/21 02/06/21 02/06/21 03:43 05:04 05:07 MCV MCH MCHC RDW Plt Count MPV Immature Gran % (Auto) Neut % (Auto) Lymph % (Auto) [place] % (Auto) Eos % (Auto) Baso % (Auto) Lymph # (Auto) [place] # (Auto) Eos # (Auto) Baso # (Auto) Abs Immat Gran (auto) Absolute Neuts (auto) Absolute Nucleated RBC Nucleated RBC % (auto) PT INR APTT PTT (Heparin Protocol) O2 Saturation 93.0 ABG pH at Pt Temp 7.39 ABG pH (Temp Correct) 7.39 ABG pCO2 at Pt Temp 25 L ABG pCO2 (Temp Corrct 25 L ABG pO2 at Pt Temp 76 L ABG pO2 (Temp Correct 75 L ABG HCO3 15 L ABG Base Excess (Actual) -7.2 Anion Gap Estim Creat Clear Calc Estimated GFR POC Glucose Random Glucose Lactic Acid Calcium Total Bilirubin AST ALT Alkaline Phosphatase Troponin I High Sens 402.2 H* D Total Protein Albumin Lipase Urine Color Urine Appearance Urine pH Ur Specific [place] Urine Protein Urine Glucose (UA) Urine Ketones Urine Blood Urine Nitrite Ur Leukocyte Esterase Urine RBC Urine WBC Ur Squamous Epith Cells Urine Bacteria Urine Mucus Acetone, Qual COVID-19 (SERINA) Negative COVID-19 Clin Com See Note 02/06/21 02/06/21 02/06/21 05:54 05:54 06:25 MCV MCH MCHC RDW Plt Count MPV Immature Gran % (Auto) Neut % (Auto) Lymph % (Auto) [place] % (Auto) Eos % (Auto) Baso % (Auto) Lymph # (Auto) [place] # (Auto) Eos # (Auto) Baso # (Auto) Abs Immat Gran (auto) Absolute Neuts (auto) Absolute Nucleated RBC Nucleated RBC % (auto) PT 12.5 INR 1.1 APTT 33.7 PTT (Heparin Protocol) O2 Saturation ABG pH at Pt Temp ABG pH (Temp Correct) ABG pCO2 at Pt Temp ABG pCO2 (Temp Corrct ABG pO2 at Pt Temp ABG pO2 (Temp Correct ABG HCO3 ABG Base Excess (Actual) Anion Gap Estim Creat Clear Calc Estimated GFR POC Glucose Random Glucose Lactic Acid 2.0 Calcium Total Bilirubin AST ALT Alkaline Phosphatase Troponin I High Sens Total Protein Albumin Lipase Urine Color YELLOW Urine Appearance CLEAR Urine pH 5.5 Ur Specific [place] 1.010 Urine Protein 1+ H Urine Glucose (UA) >=1000 H Urine Ketones >=80 Urine Blood NEG Urine Nitrite NEG Ur Leukocyte Esterase NEG Urine RBC 0-2 Urine WBC 0-2 Ur Squamous Epith Cells TRACE Urine Bacteria NONE Urine Mucus TRACE Acetone, Qual COVID-19 (SERINA) COVID-19 Clin Com 02/06/21 02/06/21 02/06/21 06:34 06:44 07:59 MCV MCH MCHC RDW Plt Count MPV Immature Gran % (Auto) Neut % (Auto) Lymph % (Auto) [place] % (Auto) Eos % (Auto) Baso % (Auto) Lymph # (Auto) [place] # (Auto) Eos # (Auto) Baso # (Auto) Abs Immat Gran (auto) Absolute Neuts (auto) Absolute Nucleated RBC Nucleated RBC % (auto) PT INR APTT PTT (Heparin Protocol) O2 Saturation ABG pH at Pt Temp ABG pH (Temp Correct) ABG pCO2 at Pt Temp ABG pCO2 (Temp Corrct ABG pO2 at Pt Temp ABG pO2 (Temp Correct ABG HCO3 ABG Base Excess (Actual) Anion Gap Estim Creat Clear Calc Estimated GFR POC Glucose 398 H* 382 H* Random Glucose Lactic Acid Calcium Total Bilirubin AST ALT Alkaline Phosphatase Troponin I High Sens 710.9 H* D Total Protein Albumin Lipase Urine Color Urine Appearance Urine pH Ur Specific [place] Urine Protein Urine Glucose (UA) Urine Ketones Urine Blood Urine Nitrite Ur Leukocyte Esterase Urine RBC Urine WBC Ur Squamous Epith Cells Urine Bacteria Urine Mucus Acetone, Qual COVID-19 (SERINA) COVID-TempoIQ Com 02/06/21 10:10 MCV MCH MCHC RDW Plt Count MPV Immature Gran % (Auto) Neut % (Auto) Lymph % (Auto) [place] % (Auto) Eos % (Auto) Baso % (Auto) Lymph # (Auto) [place] # (Auto) Eos # (Auto) Baso # (Auto) Abs Immat Gran (auto) Absolute Neuts (auto) Absolute Nucleated RBC Nucleated RBC % (auto) PT 12.8 INR 1.1 APTT PTT (Heparin Protocol) 32.7 L O2 Saturation ABG pH at Pt Temp ABG pH (Temp Correct) ABG pCO2 at Pt Temp ABG pCO2 (Temp Corrct ABG pO2 at Pt Temp ABG pO2 (Temp Correct ABG HCO3 ABG Base Excess (Actual) Anion Gap Estim Creat Clear Calc Estimated GFR POC Glucose Random Glucose Lactic Acid Calcium Total Bilirubin AST ALT Alkaline Phosphatase Troponin I High Sens Total Protein Albumin Lipase Urine Color Urine Appearance Urine pH Ur Specific [place] Urine Protein Urine Glucose (UA) Urine Ketones Urine Blood Urine Nitrite Ur Leukocyte Esterase Urine RBC Urine WBC Ur Squamous Epith Cells Urine Bacteria Urine Mucus Acetone, Qual COVID-19 ([facility]ERINA) COVID-19 Clin Com <Cornelia Salgado NP - Last Filed: 02/06/21 13:54> Imaging Radiologist's Impressions: Impressions Abdomen/Pelvis CTA 02/06/21 04:17 IMPRESSION: 1. No evidence for any dissection. 2. The aortobifem graft has measurably improved in overall appearance. The minor perigraft fluid/infiltration adjacent to left iliac limb especially has continued to improve with minor residual fluid noted. No new findings. Chest CTA 02/06/21 04:17 IMPRESSION: 1. No evidence for any dissection. 2. The aortobifem graft has measurably improved in overall appearance. The minor perigraft fluid/infiltration adjacent to left iliac limb especially has continued to improve with minor residual fluid noted. No new findings. <Cornelia Salgado NP - Last Filed: 02/06/21 13:54> Assessment and Plan (1) NSTEMI (non-ST elevated myocardial infarction): Status: Acute <Cornelia Salgado NP - Last Filed: 02/06/21 13:54> (2) ANDREZ (acute kidney injury): Status: Acute <Cornelia Salgado NP - Last Filed: 02/06/21 13:54> 70 year old man admitted with chest pain and found to have NSTEMI. NSTEMI. Possibly secondary to vomiting, no clear infection IV heparin drip cardiology to follow asa, statin ANDREZ. Likely volume related IV fluid hydration follow BMP if no improvement seen consider nephrology consult Diabetes SS, ADA diet DVT prophylaxis with IV heparin Attending Dr. Jolly Full code <Cornelia Salgado NP - Last Filed: 02/06/21 13:54> 70 year old man admitted with chest pain and found to have NSTEMI. NSTEMI. Possibly secondary to vomiting, no clear infection IV heparin drip cardiology to follow asa, statin ANDREZ. Likely volume related IV fluid hydration follow BMP if no improvement seen consider nephrology consult Diabetes SS, ADA diet DVT prophylaxis with IV heparin Attending Dr. Jolly Full code Attending Attestation: Patient seen and examined independently and I was present during garrison portion of E/M service. Agree with Scott Salgado NP's history, physical, assessment, and plan with the following additions and/or changes. Presenting with abdominal pain, found to have elevated HS trop-I. ALso hyperglyecemic with anion gap, but no ketones. REports his DM has been well controlled with diet. Also endorses chronic oral antibiotics - ? graft infection. Will continue iv heparin gtt per cardiology recs repeat A1C hold KELLE/ARB due to ANDREZ <John Jolly MD - Last Filed: 02/06/21 14:06> Quality Stroke Does the patient have a stroke diagnosis?: No <Cornelia Salgado NP - Last Filed: 02/06/21 13:54> VTE Prior VTE?: No <Cornelia Salgado NP - Last Filed: 02/06/21 13:54> VTE Risk Level:: Medical - moderate - high <Cornelia Salgado NP - Last Filed: 02/06/21 13:54> VTE Device Contraindication: Treatment Not Indicated <Cornelia Salgado NP - Last Filed: 02/06/21 13:54> VTE Drug Contraindication: N/A - Med Ordered <Cornelia Salgado NP - Last Filed: 02/06/21 13:54>
[2021-02-06 11:31] LABS: Glucose, Whole Blood 374 mg/dL (60-115)
[2021-02-06] MEDS: Insulin Lispro 100 UNIT/ML 3 ML VIAL SUBCUT ×3 (12:34→21:49)
[2021-02-06 14:15] LABS: Glucose, Whole Blood 310 mg/dL (60-115)
[2021-02-06 14:24] LABS: Estimated Average Glucose 189 mg/dL; Hemoglobin A1c % 8.2 %
--- NOTE | 2021-02-06 14:24 | PHA.MEDREC ---
Pharmacy Consult ? Medication Reconciliation Pharmacy has completed the medication reconciliation. Patient reports completely stopping Lyrica because it was not helping his neuorpathic pain as well as titrating off gabapentin. He then restarted Lyrica which helped for 3 days then stopped again. Patient reports having bad neuropathic pain. Patient taking morphine as home, and requests to have IV morphine for pain while in patient. Catherine Robins, AngeliD
[2021-02-06] MEDS: 0.9 % Sodium Chloride 1,000 ML 100 ML IVCONT (14:35)
[2021-02-06 14:38] LABS: Anion Gap 16 (12-20); Blood Urea Nitrogen 17 mg/dL (9-16); Calcium 9.7 mg/dL (8.4-10.2); Carbon Dioxide 20 mmol/L (22-29); Chloride 104 mmol/L (96-108); Creatinine Clr Calc Pharmacy 56.2; Estimated Glomerular Filt Rate 52; Glucose Random 336 mg/dL (60-115); Potassium 3.4 mmol/L (3.3-5.1); Sodium 137 mmol/L (135-145)
[2021-02-06 14:40] LABS: Glucose, Whole Blood 279 mg/dL (60-115)
[2021-02-06 14:47] LABS: Troponin-I High Sensitivity 1796.5 ng/L (<3.5-35.0)
[2021-02-06 16:53] LABS: PTT Heparin Drip 71.3 SEC (53-77.9)
[2021-02-06 17:04] LABS: Glucose, Whole Blood 244 mg/dL (60-115)
[2021-02-06] MEDS: Morphine Sulfate Immed Release 15 MG TABLET PO (17:45)
[2021-02-06 20:19] LABS: Glucose, Whole Blood 204 mg/dL (60-115)
[2021-02-06] MEDS: Morphine Sulfate ER 15 MG TABLET.ER PO (21:48)
[2021-02-06] MEDS: 0.9 % Sodium Chloride Flush 3 ML SYRINGE IVFLUSH (21:49)
[2021-02-06 22:43] LABS: PTT Heparin Drip 88.4 SEC (53-77.9)
[2021-02-07 03:32] VITALS: BP 99/47; PULSE 63; RESP 20; TEMP 36.9; O2SAT 94
[2021-02-07 05:02] LABS: MANUAL DIFF FLAG NO
[2021-02-07 05:07] LABS: Basophils Absolute Auto 0.1 X10*3/uL (0.0-0.2); Basophils Percent Auto 0.4 % (0-2); Eosinophils Absolute Auto 0.2 X10*3/uL (0.0-0.4); Eosinophils Percent Auto 1.7 % (0-4); Hematocrit 32.9 % (42-52); Hemoglobin 11.7 g/dl (14.0-18.0); Imm Gran Abs Auto 0.03 X10*3/uL (0.00-0.03); Imm Gran Pct Auto 0.2 % (0.0-0.4); Lymphocytes Absolute Auto 4.1 X10*3/uL (1.2-4.9); Mean Corpuscular HGB Conc 35.6 g/dl (31.0-36.0); Mean Corpuscular Hemoglobin 28.1 pg (27.0-33.0); Mean Corpuscular Volume 79.1 fL (80-98); Mean Platelet Volume 11.2 fL (9.4-12.4); Monocytes Absolute Auto 0.8 X10*3/uL (0.1-1.2); Monocytes Percent Auto 5.6 % (2-11); Neutrophils Absolute Auto 8.5 X10*3/uL (2.0-8.3); Neutrophils Percent Auto 62.1 % (45-73); Platelet Count 149 X10*3/uL (160-400); Red Blood Count 4.16 X10*6/uL (4.60-5.80); Red Cell Distribution Width 14.5 % (11.0-16.0); White Blood Count 13.6 X10*3/uL (4.8-10.8)
[2021-02-07 05:18] LABS: PTT Heparin Drip 64.1 SEC (53-77.9)
[2021-02-07 05:44] LABS: Anion Gap 12 (12-20); Blood Urea Nitrogen 16 mg/dL (9-16); Calcium 9.1 mg/dL (8.4-10.2); Carbon Dioxide 23 mmol/L (22-29); Chloride 108 mmol/L (96-108); Cholesterol 104 mg/dL; Creatinine Clr Calc Pharmacy 68.6; Estimated Glomerular Filt Rate > 60; Glucose Random 170 mg/dL (60-115); HDL Cholesterol 20 mg/dL; LDL Cholesterol Calculated 56 mg/dl; Potassium 3.2 mmol/L (3.3-5.1); Sodium 140 mmol/L (135-145); Triglycerides 142 mg/dL
[2021-02-07 07:16] LABS: Glucose, Whole Blood 166 mg/dL (60-115)
[2021-02-07 07:20] VITALS: BP 136/73; PULSE 63; RESP 20; TEMP 36.6; O2SAT 95
[2021-02-07] MEDS: Insulin Lispro 100 UNIT/ML 3 ML VIAL SUBCUT ×3 (07:41→17:02)
[2021-02-07] MEDS: 0.9 % Sodium Chloride Flush 3 ML SYRINGE IVFLUSH ×2 (07:42→15:59)
[2021-02-07] MEDS: Cholecalciferol (Vitamin D3) 25 MCG TABLET 125 MCG PO (07:53)
[2021-02-07] MEDS: Ascorbic Acid 500 MG TABLET PO (07:53)
[2021-02-07] MEDS: Aspirin 81 MG TAB.CHEW PO (07:53)
[2021-02-07] MEDS: Omeprazole 20 MG CAPSULE.DR PO (07:53)
[2021-02-07] MEDS: Furosemide 40 MG TABLET PO (07:54)
[2021-02-07] MEDS: Atorvastatin Calcium 20 MG TABLET PO (07:54)
[2021-02-07] MEDS: Morphine Sulfate ER 15 MG TABLET.ER PO (07:57)
--- NOTE | 2021-02-07 09:04 | MHC.CM.PN ---
CM met with Patient at bedside and addressed IMM with him, providing him with the original and placing a copy on the chart. Patient lives in a house with his /HCP and he uses a walking stick to assist with mobility. Patient's goal is to return home/no services and CM has initiated and will follow for dc planning. PCP is Dr. Anahi Lopez.
[2021-02-07] MEDS: Potassium Chloride ER 20 MEQ TAB.ER.PRT PO (09:18)
[2021-02-07] MEDS: Heparin Sodium,Porcine/1/2NS 25,000 UNIT/250 ML IV.SOLN 8.17 UNIT IVCONT (09:29)
--- NOTE | 2021-02-07 10:51 | CA_ITS ---
Transthoracic Echocardiogram Patient (Last, First, Middle): Caesar Flower J Gender: Male Date of : 1950 Age: 70 Procedure Date: 02/07/2021 Procedure Type: Transthoracic Echocardiogram Location: [facility] [place] Height: 177.8 cm Weight: 92.08 kg BSA: 2.10 m2 Heart Rate: bpm BP: 99 / 47 mmHg Global Cmo: SARAH Referring MD: Rc Carreno MD Symptoms: NSTEMI Study Quality: Fair/Contrast ECG Rhythm: Sinus Conclusions: - The left ventricular systolic function is mildly decreased. The calculated ejection fraction is 43% by biplane method. - The inferoseptal wall, anterolateral wall, inferolateral wall, the mid inferior, and basal anteroseptal segments are hypokinetic. - The basal inferior segment is akinetic. - There is mild calcification of the aortic valve. - There is mild mitral valve regurgitation. Findings Procedure Information Contrast agent, definity, is being given per protocol without apparent complications. Left Ventricle Normal left ventricular cavity size. There is normal left ventricular wall thickness. The left ventricular systolic function is mildly decreased. The calculated ejection fraction is 43% by biplane method. There is evidence of regional wall motion abnormalities. E/E prime ratio is between 8 and 15 consistent with indeterminate filling pressures. Evidence suggests grade I (mild) diastolic dysfunction. Wall Motion Rest Echo Findings The inferoseptal wall, anterolateral wall, inferolateral wall, the mid inferior, and basal anteroseptal segments are hypokinetic. The basal inferior segment is akinetic. Right Ventricle Normal right ventricular cavity size and systolic function. Atria The left atrium is mildly dilated. The right atrium is normal in size. Aortic Valve There is a normal trileaflet aortic valve. There is mild calcification of the aortic valve. There is no aortic valve stenosis. The mean gradient is 9 mmHg. There is no aortic valve regurgitation. Mitral Valve There is mild anterior mitral leaflet thickening. There is mild mitral annular calcification. There is mild mitral valve regurgitation. There is no mitral valve stenosis. Pulmonic Valve The pulmonic valve was not well visualized. Tricuspid Valve Normal tricuspid valve structure. There is trace tricuspid valve regurgitation. The pulmonary artery systolic pressure is normal. Great Vessels The asc aorta is normal in size. Venous The inferior vena cava is normal in size and collapses greater than 50% with inspiration. Pericardium/Pleural There is no evidence of pericardial effusion. Prior Study Comparison Changes noted compared to prior study dated: 09/18/2020. Diminished LVEF. See comment on wall motion. Measurements 2D Linear Measurements IVSd: 0.95 0.6-0.9/0.6-1.0 cm LVIDd: 5.36 3.9-5.3/4.2-5.9 cm LVIDd Index: 2.55 2.4-3.2/2.2-3.1 cm/m2 LVIDs: 4.13 2.0-3.6 cm LVPWd: 0.77 0.7-1.1 cm Ao Root: 3.10 2.1-3.5 cm LA Diam: 4.20 2.7-3.8/3.0-4.0 cm LAIDs Index: 2.00 1.5-2.3 cm/m2 LV Mass: 209.25 67-162/88-224 g LV Mass Index: 99.64 43-95/49-115 g/m2 LVOT Diam: 2.10 3.0+(-)1.3 cm 2D Systolic Function EF 4C: 44.80 >55% EF 2C: 42.20 >55% EF BiP: 42.70 >55% Mitral Valve MV Pk E: 0.88 MV PK A: 0.72 MV Decel Time: 342.00 E/A: 1.20 E'Lateral: 6.53 E'Medial: 5.66 E/E' Med: 15.50 E/E' Lat: 13.40 PHT: 100.00 MVA PHT: 2.20 Decel Kern: 2.56 Aortic Valve AoV Pk Mehul: 2.16 AoV Mn Mehul: 1.37 AoV VTI: 0.38 AoV Pk Grad: 19.00 Aov Mn Grad: 9.00 VALERIE Cont.VTI: 2.49 LVOT LVOT Pk Mehul: 1.53 LVOT Mn Mehul: 0.95 LVOT VTI: 0.27 LVOT Pk Grad: 9.00 LVOT Mn Grad: 4.00 LVOT Diam: 2.10 LVOT Area: 3.46 Diastolic Function MV Pk E: 0.88 MV Pk A: 0.72 E/A: 1.20 E'Medial: 5.66 E/E' Med: 15.50 E' Laterial: 6.53 E/E' Lat: 13.40 Right Ventricle TAPSE (mm): 2.38 TVS' Mehul: 14.70 Tricuspid Valve TR Pk Mehul: 2.25 TR Pk Grad: 20.00 RA Press: 3.00 RVSP: 23.00 Great Vessels Aorta Ao Root-2D: 3.10 2.0-3.7 cm Ao Asc: 3.60 2.1-3.4 cm Ao Arch: 3.40 Updated in Other Vendor System with Status of Final Rc Carreno MD electronically signed on 02/07/2021 1:30:10 PM with status of Final
[2021-02-07 10:53] LABS: Glucose, Whole Blood 194 mg/dL (60-115)
[2021-02-07 10:55] LABS: INTERNATIONAL NORM RATIO 1.1 (0.9-1.1); Prothrombin Time 12.2 SEC (9.9-13.0)
[2021-02-07] MEDS: ondansetron HCL 4 MG/2 ML VIAL IVPUSH ×2 (11:17→17:56)
[2021-02-07 11:28] VITALS: BP 134/73; PULSE 67; RESP 18; TEMP 36.6; O2SAT 93
[2021-02-07] MEDS: Heparin Sodium,Porcine 5,000 UNIT/ML VIAL 3700 UNIT IVPUSH (11:38)
[2021-02-07] MEDS: Morphine Sulfate Immed Release 15 MG TABLET PO ×2 (11:44→17:55)
--- NOTE | 2021-02-07 11:57 | P.PNCA_ITS ---
Subjective Subjective Date of Service: 02/07/21 Interval history: No chest pain; abdominal pain is better. Review of Systems Review of Systems Yes all other systems are reviewed and are negative Cardiovascular: Reports as per HPI, Reports no additional cardiovascular complaints, Denies acrocyanosis, Denies cool extremities, Denies painful fingertips, Denies chest pain, Denies chest pain at rest, Denies diaphoresis, Denies syncope, Denies irregular heart rhythm, Denies claudication, Denies leg edema, Denies lightheadedness, Denies palpitations and Denies dyspnea Respiratory: Denies dyspnea Denies syncope Endocrine: Denies palpitations Physical Exam Vital Signs: Last Vital Signs Temp 97.8 F 02/07/21 11:28 Pulse 67 02/07/21 11:28 Resp 18 02/07/21 11:28 BP 134/73 02/07/21 11:28 Pulse Ox 93 02/07/21 11:28 Body Mass Index 29.1 Const General: cooperative and no acute distress HENSC Other: Unremarkable Neck Neck: Yes normal visual inspection Chest Chest palpation & inspection: normal inspection of the chest Resp Auscultation: clear to auscultation bilaterally, no crackles and no wheezes Cardio Jugular venous distension: no JVD Palpation: normal PMI Heart sounds: S1 normal heart sound present, S2 normal heart sound present, no gallops, no murmurs and no rubs GI Palpation (GI): Soft to palpation Back/Spine/Pelvis Other: unremarkable Skin General skin exam: no rashes or lesions noted Neuro Cranial nerves: Yes Other cranial nerve findings present Extrem General: Yes no clubbing, cyanosis or edema Psych Mental Status: other Results Labs and Meds Result diagrams: 02/07/21 04:56 02/07/21 04:56 Lab results: Laboratory Results - last 24 hr 02/06/21 02/06/21 02/06/21 14:03 14:03 14:03 WBC RBC Hgb Hct MCV MCH MCHC RDW Plt Count MPV Immature Gran % (Auto) Neut % (Auto) Lymph % (Auto) [place] % (Auto) Eos % (Auto) Baso % (Auto) Lymph # (Auto) [place] # (Auto) Eos # (Auto) Baso # (Auto) Abs Immat Gran (auto) Absolute Neuts (auto) Absolute Nucleated RBC Nucleated RBC % (auto) PT INR PTT (Heparin Protocol) Sodium 137 Potassium 3.4 Chloride 104 Carbon Dioxide 20 L Anion Gap 16 BUN 17 H Creatinine 1.35 Estim Creat Clear Calc 56.2 Estimated GFR 52 POC Glucose Random Glucose 336 H Estimat Average Glucose 189 Hemoglobin A1c % 8.2 Calcium 9.7 Troponin I High Sens 1796.5 H* D Triglycerides Cholesterol LDL Cholesterol, Calc HDL Cholesterol 02/06/21 02/06/21 02/06/21 14:10 14:33 16:27 WBC RBC Hgb Hct MCV MCH MCHC RDW Plt Count MPV Immature Gran % (Auto) Neut % (Auto) Lymph % (Auto) [place] % (Auto) Eos % (Auto) Baso % (Auto) Lymph # (Auto) [place] # (Auto) Eos # (Auto) Baso # (Auto) Abs Immat Gran (auto) Absolute Neuts (auto) Absolute Nucleated RBC Nucleated RBC % (auto) PT INR PTT (Heparin Protocol) 71.3 D Sodium Potassium Chloride Carbon Dioxide Anion Gap BUN Creatinine Estim Creat Clear Calc Estimated GFR POC Glucose 310 H 279 H Random Glucose Estimat Average Glucose Hemoglobin A1c % Calcium Troponin I High Sens Triglycerides Cholesterol LDL Cholesterol, Calc HDL Cholesterol 02/06/21 02/06/21 02/06/21 16:58 20:13 22:18 WBC RBC Hgb Hct MCV MCH MCHC RDW Plt Count MPV Immature Gran % (Auto) Neut % (Auto) Lymph % (Auto) [place] % (Auto) Eos % (Auto) Baso % (Auto) Lymph # (Auto) [place] # (Auto) Eos # (Auto) Baso # (Auto) Abs Immat Gran (auto) Absolute Neuts (auto) Absolute Nucleated RBC Nucleated RBC % (auto) PT INR PTT (Heparin Protocol) 88.4 H D Sodium Potassium Chloride Carbon Dioxide Anion Gap BUN Creatinine Estim Creat Clear Calc Estimated GFR POC Glucose 244 H 204 H Random Glucose Estimat Average Glucose Hemoglobin A1c % Calcium Troponin I High Sens Triglycerides Cholesterol LDL Cholesterol, Calc HDL Cholesterol 02/07/21 02/07/21 02/07/21 04:56 04:56 04:56 WBC 13.6 H RBC 4.16 L Hgb 11.7 L Hct 32.9 L MCV 79.1 L MCH 28.1 MCHC 35.6 RDW 14.5 Plt Count 149 L MPV 11.2 Immature Gran % (Auto) 0.2 Neut % (Auto) 62.1 Lymph % (Auto) 30.0 [place] % (Auto) 5.6 Eos % (Auto) 1.7 Baso % (Auto) 0.4 Lymph # (Auto) 4.1 [place] # (Auto) 0.8 Eos # (Auto) 0.2 Baso # (Auto) 0.1 Abs Immat Gran (auto) 0.03 Absolute Neuts (auto) 8.5 H Absolute Nucleated RBC 0.000 Nucleated RBC % (auto) 0.0 PT 12.2 INR 1.1 PTT (Heparin Protocol) Sodium 140 Potassium 3.2 L Chloride 108 Carbon Dioxide 23 Anion Gap 12 BUN 16 Creatinine 1.11 Estim Creat Clear Calc 68.6 Estimated GFR > 60 POC Glucose Random Glucose 170 H D Estimat Average Glucose Hemoglobin A1c % Calcium 9.1 D Troponin I High Sens Triglycerides 142 Cholesterol 104 D LDL Cholesterol, Calc 56 HDL Cholesterol 20 D 02/07/21 02/07/21 02/07/21 04:56 07:12 09:13 WBC RBC Hgb Hct MCV MCH MCHC RDW Plt Count MPV Immature Gran % (Auto) Neut % (Auto) Lymph % (Auto) [place] % (Auto) Eos % (Auto) Baso % (Auto) Lymph # (Auto) [place] # (Auto) Eos # (Auto) Baso # (Auto) Abs Immat Gran (auto) Absolute Neuts (auto) Absolute Nucleated RBC Nucleated RBC % (auto) PT INR PTT (Heparin Protocol) 64.1 D Sodium Potassium Chloride Carbon Dioxide Anion Gap BUN Creatinine Estim Creat Clear Calc Estimated GFR POC Glucose 166 H Random Glucose Estimat Average Glucose Hemoglobin A1c % Calcium Troponin I High Sens 737.0 H* D Triglycerides Cholesterol LDL Cholesterol, Calc HDL Cholesterol 02/07/21 02/07/21 10:41 10:49 WBC RBC Hgb Hct MCV MCH MCHC RDW Plt Count MPV Immature Gran % (Auto) Neut % (Auto) Lymph % (Auto) [place] % (Auto) Eos % (Auto) Baso % (Auto) Lymph # (Auto) [place] # (Auto) Eos # (Auto) Baso # (Auto) Abs Immat Gran (auto) Absolute Neuts (auto) Absolute Nucleated RBC Nucleated RBC % (auto) PT INR PTT (Heparin Protocol) 44.0 L D Sodium Potassium Chloride Carbon Dioxide Anion Gap BUN Creatinine Estim Creat Clear Calc Estimated GFR POC Glucose 194 H Random Glucose Estimat Average Glucose Hemoglobin A1c % Calcium Troponin I High Sens Triglycerides Cholesterol LDL Cholesterol, Calc HDL Cholesterol Progress Note: A&P Assessment and plan (1) NSTEMI (non-ST elevated myocardial infarction): Status: Acute (2) S/P aorto-bifemoral bypass surgery: Status: Acute (3) Abdominal pain: Status: Acute Assessment and Plan: Pertinent data reviewed. High sensitive troponins are 402 and 710. In December it was 19.6. CT of the abdomen with no acute findings with regard to the aortobifem graft. Overall, this is secondary NSTEMI related to his abdominal pain. Considering the vascular history, probably has underlying coronary disease as well. Will treat him as NSTEMI. IV heparin drip, aspirin, statins. Echocardiogram to be completed today. Transfer to [facility] for diagnostic cardiac catheterization. Patient is agreeable. Fall Risk Details Current Medications: Current Medications Generic Name Dose Route Start Last Admin Trade Name Freq PRN Reason Stop Dose Admin Acetaminophen 650 mg 02/06/21 11:11 Acetaminophen 325 Mg Tablet PO Q6H PRN Pain, Mild (Pain Scale 1-3) Ascorbic Acid 500 mg 02/07/21 09:00 02/07/21 07:53 Ascorbic Acid 500 Mg Tablet PO 500 mg DAILY TESS Administration Aspirin 81 mg 02/07/21 09:00 02/07/21 07:53 Aspirin 81 Mg Tab.Chew PO 81 mg DAILY TESS Administration Atorvastatin Calcium 20 mg 02/07/21 09:00 02/07/21 07:54 Atorvastatin Calcium 20 Mg Tablet PO 20 mg DAILY TESS Administration Dextrose 25 gm 02/06/21 11:16 Dextrose 50 % 25 Gm/50 Ml Vial IVPUSH Q15M PRN per Hypoglycemia Standing Ord. Protocol Dextrose 25 gm 02/06/21 13:54 Dextrose 50 % 25 Gm/50 Ml Vial IVPUSH Q15M PRN per Hypoglycemia Standing Ord. Protocol Furosemide 40 mg 02/07/21 09:00 02/07/21 07:54 Furosemide 40 Mg Tablet PO 40 mg DAILY TESS Administration Protocol Glucose 15 gm 02/06/21 11:16 Glucose Gel 15 Gm Gel..Gram. PO Q15M PRN per Hypoglycemia Standing Ord. Protocol Glucose 15 gm 02/06/21 13:54 Glucose Gel 15 Gm Gel..Gram. PO Q15M PRN per Hypoglycemia Standing Ord. Protocol Heparin Sodium (Porcine) 3,700 unit 02/06/21 09:55 02/07/21 11:38 Heparin Sodium,Porcine 5,000 Unit/Ml Vial 40 unit/kg (3700 unit) 3,700 unit IVPUSH Administration PROTOCOL BOLUS PRN 40 unit/kg - Heparin Protocol Protocol Heparin Sodium (Porcine) 7,300 unit 02/06/21 09:55 Heparin Sodium,Porcine 5,000 Unit/Ml Vial 80 unit/kg (7300 unit) IVPUSH PROTOCOL BOLUS PRN 80 unit/kg - Heparin Protocol Protocol Heparin Sodium/Sodium Chloride 25,000 unit in 250 mls @ 0 mls/hr 02/06/21 10:00 02/07/21 11:39 IVCONT 10.94 units/kg/hr .Q0M TESS 10 mls/hr Titration Protocol Per Protocol Insulin Human Lispro 0 unit 02/06/21 16:30 02/07/21 11:19 Insulin Lispro 100 Unit/Ml 3 Ml Vial SUBCUT 2 unit QIDACHS TESS Administration Protocol Loratadine 10 mg 02/06/21 11:31 Loratadine 10 Mg Tablet PO BEDTIME PRN allergy symptoms Morphine Sulfate 15 mg 02/06/21 17:16 02/06/21 17:45 Morphine Sulfate Immed Release 15 Mg Tablet PO 15 mg DAILY PRN Administration severe pain Morphine Sulfate 15 mg 02/07/21 10:48 02/07/21 11:44 Morphine Sulfate Immed Release 15 Mg Tablet PO 15 mg Q6H PRN Administration Pain, Severe (Pain Scale 7-10) Omeprazole 20 mg 02/07/21 09:00 02/07/21 07:53 Omeprazole 20 Mg Capsule.Dr PO 20 mg DAILY TESS Administration Ondansetron HCl 4 mg 02/07/21 11:04 02/07/21 11:17 Ondansetron Hcl 4 Mg/2 Ml Vial IVPUSH 4 mg Q6H PRN Administration Nausea and Vomiting Pharmacy Consult 1 each 02/06/21 14:03 Consult Rx Perform Med Rec MISCELLANE ONCE PRN Consult order Sodium Chloride 3 ml 02/06/21 16:00 02/07/21 07:42 0.9 % Sodium Chloride Flush 3 Ml Syringe IVFLUSH 3 ml QSHIFT TESS Administration Vitamin D 125 mcg 02/07/21 09:00 02/07/21 07:53 Cholecalciferol (Vitamin D3) 25 Mcg Tablet PO 125 mcg DAILY TESS Administration Time Spent With Patient Time: Total time spent is greater than 50% in coordination of care (as documented) at patient's floor/unit and/or counseling patient: Time with patient: less than 15 minutes Progress Note: Quality Stroke Does the patient have a stroke diagnosis?: No Procedures Date of Service Date of Service: 02/07/21
[2021-02-07 15:21] VITALS: BP 136/68; PULSE 66; RESP 15; TEMP 36.6; O2SAT 98
--- NOTE | 2021-02-07 15:30 | HO.PM.IMPN ---
Subjective Subjective Date of Service: 02/07/21 Interval History: the patient was seen and evaluated this morning Laying in bed, complaining mainly of back pain with no chest pain or nausea Abdominal pain improved but still feels it on a home of Denies any fever, chills or vomiting No reported other overnight events. Systemic review: No fever, chills but has back pain No chest pain, palpitation No shortness of breath or coughing No abdominal pain, mild nausea but no vomiting No urinary symptoms No any rash or wounds Physical Exam Vital Signs: Vital Signs: Last Vital Signs Temp 98 F 02/07/21 15: Pulse 66 02/07/21 15:21 Resp 15 02/07/21 15:21 BP 136/68 02/07/21 15: Pulse Ox 98 02/07/21 15: Body Mass Index 29.1 Const: Other: Constitutional : Alert, oriented, not in distress Neck : Normal inspection, Supple Cardiovascular : RRR, S1 S2, no lower extremity edema Respiratory : Fair bilateral air entry, no crackles, wheezes or rhonchi Gastrointestinal: soft, lax, Normal bowel sounds, Non tender Skin : Warm, Dry Neurological : Alert & oriented x3, No focal deficit Objective Data Active Medications Acetaminophen (Acetaminophen 325 Mg Tablet) 650 mg PO Q6H PRN PRN Reason: Pain, Mild (Pain Scale 1-3) Ascorbic Acid (Ascorbic Acid 500 Mg Tablet) 500 mg PO DAILY [facility] Last Admin: 02/07/21 07:53 Dose: 500 mg Documented by: KENJI Aspirin (Aspirin 81 Mg Tab.Chew) 81 mg PO DAILY [facility] Last Admin: 02/07/21 07:53 Dose: 81 mg Documented by: KENJI Atorvastatin Calcium (Atorvastatin Calcium 20 Mg Tablet) 20 mg PO DAILY [facility] Last Admin: 02/07/21 07:54 Dose: 20 mg Documented by: KENJI Dextrose (Dextrose 50 % 25 Gm/50 Ml Vial) 25 gm IVPUSH Q15M PRN; Protocol PRN Reason: per Hypoglycemia Standing Ord. Dextrose (Dextrose 50 % 25 Gm/50 Ml Vial) 25 gm IVPUSH Q15M PRN; Protocol PRN Reason: per Hypoglycemia Standing Ord. Furosemide (Furosemide 40 Mg Tablet) 40 mg PO DAILY [facility]; Protocol Last Admin: 02/07/21 07:54 Dose: 40 mg Documented by: KENJI Glucose (Glucose Gel 15 Gm Gel..Gram.) 15 gm PO Q15M PRN; Protocol PRN Reason: per Hypoglycemia Standing Ord. Glucose (Glucose Gel 15 Gm Gel..Gram.) 15 gm PO Q15M PRN; Protocol PRN Reason: per Hypoglycemia Standing Ord. Heparin Sodium (Porcine) (Heparin Sodium,Porcine 5,000 Unit/Ml Vial) 3,700 unit 40 unit/kg (3700 unit) IVPUSH PROTOCOL BOLUS PRN; Protocol PRN Reason: 40 unit/kg - Heparin Protocol Last Admin: 02/07/21 11:38 Dose: 3,700 unit Documented by: KENJI Heparin Sodium (Porcine) (Heparin Sodium,Porcine 5,000 Unit/Ml Vial) 7,300 unit 80 unit/kg (7300 unit) IVPUSH PROTOCOL BOLUS PRN; Protocol PRN Reason: 80 unit/kg - Heparin Protocol Heparin Sodium/Sodium Chloride () 25,000 unit in 250 mls @ 0 mls/hr IVCONT .Q0M [facility]; Protocol Last Titration: 02/07/21 11:39 Dose: 10.94 units/kg/hr, 10 mls/hr Documented by: KENJI Cosigned by: ARJUN Insulin Human Lispro (Insulin Lispro 100 Unit/Ml 3 Ml Vial) 0 unit SUBCUT QIDACHS [facility]; Protocol Last Admin: 02/07/21 11:19 Dose: 2 unit Documented by: KENJI Loratadine (Loratadine 10 Mg Tablet) 10 mg PO BEDTIME PRN PRN Reason: allergy symptoms Morphine Sulfate (Morphine Sulfate Immed Release 15 Mg Tablet) 15 mg PO DAILY PRN PRN Reason: severe pain Last Admin: 02/06/21 17:45 Dose: 15 mg Documented by: KENDALL Morphine Sulfate (Morphine Sulfate Immed Release 15 Mg Tablet) 15 mg PO Q6H PRN PRN Reason: Pain, Severe (Pain Scale 7-10) Last Admin: 02/07/21 11:44 Dose: 15 mg Documented by: KENJI Omeprazole (Omeprazole 20 Mg Capsule.) 20 mg PO DAILY [facility] Last Admin: 02/07/21 07:53 Dose: 20 mg Documented by: KENJI Ondansetron HCl (Ondansetron Hcl 4 Mg/2 Ml Vial) 4 mg IVPUSH Q6H PRN PRN Reason: Nausea and Vomiting Last Admin: 02/07/21 11:17 Dose: 4 mg Documented by: KENJI Pharmacy Consult (Consult Rx Perform Med Rec) 1 each MISCELLANE ONCE PRN PRN Reason: Consult order Sodium Chloride (0.9 % Sodium Chloride Flush 3 Ml Syringe) 3 ml IVFLUSH QSHIFT [facility] Last Admin: 02/07/21 07:42 Dose: 3 ml Documented by: KENJI Vitamin D (Cholecalciferol (Vitamin D3) 25 Mcg Tablet) 125 mcg PO DAILY [facility] Last Admin: 02/07/21 07:53 Dose: 125 mcg Documented by: KENJI Labs CBC & Chem 7: 02/07/21 04:56 02/07/21 04:56 Labs: Laboratory Results - last 24 hr 02/06/21 02/06/21 02/06/21 16:27 16:58 20:13 MCV MCH MCHC RDW Plt Count MPV Immature Gran % (Auto) Neut % (Auto) Lymph % (Auto) [place] % (Auto) Eos % (Auto) Baso % (Auto) Lymph # (Auto) [place] # (Auto) Eos # (Auto) Baso # (Auto) Abs Immat Gran (auto) Absolute Neuts (auto) Absolute Nucleated RBC Nucleated RBC % (auto) PT INR PTT (Heparin Protocol) 71.3 D Anion Gap Estim Creat Clear Calc Estimated GFR POC Glucose 244 H 204 H Random Glucose Calcium Troponin I High Sens Triglycerides Cholesterol LDL Cholesterol, Calc HDL Cholesterol 02/06/21 02/07/21 02/07/21 22:18 04:56 04:56 MCV 79.1 L MCH 28.1 MCHC 35.6 RDW 14.5 Plt Count 149 L MPV 11.2 Immature Gran % (Auto) 0.2 Neut % (Auto) 62.1 Lymph % (Auto) 30.0 [place] % (Auto) 5.6 Eos % (Auto) 1.7 Baso % (Auto) 0.4 Lymph # (Auto) 4.1 [place] # (Auto) 0.8 Eos # (Auto) 0.2 Baso # (Auto) 0.1 Abs Immat Gran (auto) 0.03 Absolute Neuts (auto) 8.5 H Absolute Nucleated RBC 0.000 Nucleated RBC % (auto) 0.0 PT INR PTT (Heparin Protocol) 88.4 H D Anion Gap 12 Estim Creat Clear Calc 68.6 Estimated GFR > 60 POC Glucose Random Glucose 170 H D Calcium 9.1 D Troponin I High Sens Triglycerides 142 Cholesterol 104 D LDL Cholesterol, Calc 56 HDL Cholesterol 20 D 02/07/21 02/07/21 02/07/21 04:56 04:56 07:12 MCV MCH MCHC RDW Plt Count MPV Immature Gran % (Auto) Neut % (Auto) Lymph % (Auto) [place] % (Auto) Eos % (Auto) Baso % (Auto) Lymph # (Auto) [place] # (Auto) Eos # (Auto) Baso # (Auto) Abs Immat Gran (auto) Absolute Neuts (auto) Absolute Nucleated RBC Nucleated RBC % (auto) PT 12.2 INR 1.1 PTT (Heparin Protocol) 64.1 D Anion Gap Estim Creat Clear Calc Estimated GFR POC Glucose 166 H Random Glucose Calcium Troponin I High Sens Triglycerides Cholesterol LDL Cholesterol, Calc HDL Cholesterol 02/07/21 02/07/21 02/07/21 09:13 10:41 10:49 MCV MCH MCHC RDW Plt Count MPV Immature Gran % (Auto) Neut % (Auto) Lymph % (Auto) [place] % (Auto) Eos % (Auto) Baso % (Auto) Lymph # (Auto) [place] # (Auto) Eos # (Auto) Baso # (Auto) Abs Immat Gran (auto) Absolute Neuts (auto) Absolute Nucleated RBC Nucleated RBC % (auto) PT INR PTT (Heparin Protocol) 44.0 L D Anion Gap Estim Creat Clear Calc Estimated GFR POC Glucose 194 H Random Glucose Calcium Troponin I High Sens 737.0 H* D Triglycerides Cholesterol LDL Cholesterol, Calc HDL Cholesterol Microbiology Microbiology Results: Microbiology 02/06/21 05:54 Blood Culture - Preliminary Blood - Venous No growth after 24 hours. 02/06/21 05:54 Blood Culture - Preliminary Blood - Venous No growth after 24 hours. Assessment and Plan (1) NSTEMI (non-ST elevated myocardial infarction): Status: Acute (2) ANDREZ (acute kidney injury): Status: Acute Assessment and Plan: 70 year old man admitted with chest pain and found to have NSTEMI. NSTEMI Seems to be related to dehydration Continue IV heparin drip for the time being cardiology input appreciated, plan to transfer to [facility] for angiogram Continue asa, statin ANDREZ Prerenal, resolved Discontinue IV fluids Hold Dwight inhibitors follow BMP Diabetes SS, ADA diet DVT prophylaxis IV heparin Quality Stroke Does the patient have a stroke diagnosis?: No VTE Prior VTE?: No VTE Risk Level:: Medical - moderate - high VTE Device Contraindication: Treatment Not Indicated VTE Drug Contraindication: N/A - Med Ordered
[2021-02-07 16:07] LABS: Glucose, Whole Blood 176 mg/dL (60-115)
--- NOTE | 2021-02-07 16:10 | MHC.CLN ---
NUTRITION PLANNED SIGNIFICANT WEIGHT LOSS X 7 MONTHS, -18.8 KG, 17%. PATIENT HAD BEEN FOLLOWING [employer] DIET FOR WEIGHT LOSS. NOT CURRENTLY FOLLOWING. WOULD LIKE GLUCERNA 240 ML TID TO PROVIDE 710 KCAL, 30 G PROTEIN. DIET CHANGED TO DIABETIC 2000 KCAL (26,5 KCAL/KG IBW, 2 GRAM SODIUM.)
--- NOTE | 2021-02-07 17:50 | PM.DS ---
DS: Providers Provider Date of Service: 02/07/21 Date of admission: 02/06/21 11:11 Primary care physician: Anahi Lopez MD Consults: 02/06/21 07:41 Consult to Cardiology Stat Consulting Provider: Kolby Zuñiga Reason for consultation: elevated trop DS: Diagnosis Discharge Diagnosis (1) NSTEMI (non-ST elevated myocardial infarction): Status: Acute (2) ANDREZ (acute kidney injury): Status: Acute DS: Summary Hospital Course Hospital Course: Admission note HPI ? ? ? 70-year-old man presenting to the ER with complaints of nausea, vomiting, diffuse abdominal pain and lower quadrant pain over the last 3-4 days. Apparently he was camping and he started feeling sick with nausea and vomiting. Apparently, He denied chest pain or shortness of breath.? He does have a history of chronic pain syndrome. ? He does have a history of aortic bypass at [facility] in July of 2020. Initial troponin 402.2, 710.9. Chest CTA and abd CT showed no evidence of dissection.? he was noted to have an elevated white blood cell count of 16.4 with no clear evidence infection.? He was started on IV heparin drip in the ER.? He will be admitted for further management and treatment of NSTEMI. Hospital course The patient was admitted for evaluation Of NSTEMI picture. Seems to be related to dehydration event after multiple episodes of vomiting versus pain. Treated with IV heparin infusion, aspirin and statin with usage of morphine for pain management. as cardiology evaluated the patient and recommended transfer to [facility] as his high sensitive troponin increased from almost 400, 700 to 1700 down to 700 again. Noted to have Andrez I on CKD at time of presentation with creatinine of 1.6 from baseline of around 1.1-1.2. Improved with IV fluid back to baseline. To be transferred to [facility] for further cardiac evaluation and angiogram. Time Spent with Patient Time attestation: Total time spent providing and/or coordinating discharge services: Discharge coordination time: Greater than 30 minutes Quality: Stroke Does the patient have a stroke diagnosis?: No Physical Exam Vital Signs: Vital Signs: Last Vital Signs Temp 98 F 02/07/21 15:21 Pulse 66 02/07/21 15:21 Resp 15 02/07/21 15:21 BP 136/68 02/07/21 15:21 Pulse Ox 98 02/07/21 15:21 Body Mass Index 29.1 Const: Other: Constitutional : Alert, oriented, not in distress Neck : Normal inspection, Supple Cardiovascular : RRR, S1 S2, no lower extremity edema Respiratory : Fair bilateral air entry, no crackles, wheezes or rhonchi Gastrointestinal: soft, lax, Normal bowel sounds, Non tender Skin : Warm, Dry Neurological : Alert & oriented x3, No focal deficit DS: Data Data Completed and Pending Labs on day of discharge: Laboratory Results - last 24 hr 02/06/21 02/06/21 02/07/21 20:13 22:18 04:56 WBC 13.6 H RBC 4.16 L Hgb 11.7 L Hct 32.9 L MCV 79.1 L MCH 28.1 MCHC 35.6 RDW 14.5 Plt Count 149 L MPV 11.2 Immature Gran % (Auto) 0.2 Neut % (Auto) 62.1 Lymph % (Auto) 30.0 [place] % (Auto) 5.6 Eos % (Auto) 1.7 Baso % (Auto) 0.4 Lymph # (Auto) 4.1 [place] # (Auto) 0.8 Eos # (Auto) 0.2 Baso # (Auto) 0.1 Abs Immat Gran (auto) 0.03 Absolute Neuts (auto) 8.5 H Absolute Nucleated RBC 0.000 Nucleated RBC % (auto) 0.0 PT INR PTT (Heparin Protocol) 88.4 H D Sodium Potassium Chloride Carbon Dioxide Anion Gap BUN Creatinine Estim Creat Clear Calc Estimated GFR POC Glucose 204 H Random Glucose Calcium Troponin I High Sens Triglycerides Cholesterol LDL Cholesterol, Calc HDL Cholesterol 02/07/21 02/07/21 02/07/21 04:56 04:56 04:56 WBC RBC Hgb Hct MCV MCH MCHC RDW Plt Count MPV Immature Gran % (Auto) Neut % (Auto) Lymph % (Auto) [place] % (Auto) Eos % (Auto) Baso % (Auto) Lymph # (Auto) [place] # (Auto) Eos # (Auto) Baso # (Auto) Abs Immat Gran (auto) Absolute Neuts (auto) Absolute Nucleated RBC Nucleated RBC % (auto) PT 12.2 INR 1.1 PTT (Heparin Protocol) 64.1 D Sodium 140 Potassium 3.2 L Chloride 108 Carbon Dioxide 23 Anion Gap 12 BUN 16 Creatinine 1.11 Estim Creat Clear Calc 68.6 Estimated GFR > 60 POC Glucose Random Glucose 170 H D Calcium 9.1 D Troponin I High Sens Triglycerides 142 Cholesterol 104 D LDL Cholesterol, Calc 56 HDL Cholesterol 20 D 02/07/21 02/07/21 02/07/21 07:12 09:13 10:41 WBC RBC Hgb Hct MCV MCH MCHC RDW Plt Count MPV Immature Gran % (Auto) Neut % (Auto) Lymph % (Auto) [place] % (Auto) Eos % (Auto) Baso % (Auto) Lymph # (Auto) [place] # (Auto) Eos # (Auto) Baso # (Auto) Abs Immat Gran (auto) Absolute Neuts (auto) Absolute Nucleated RBC Nucleated RBC % (auto) PT INR PTT (Heparin Protocol) 44.0 L D Sodium Potassium Chloride Carbon Dioxide Anion Gap BUN Creatinine Estim Creat Clear Calc Estimated GFR POC Glucose 166 H Random Glucose Calcium Troponin I High Sens 737.0 H* D Triglycerides Cholesterol LDL Cholesterol, Calc HDL Cholesterol 02/07/21 02/07/21 10:49 16:03 WBC RBC Hgb Hct MCV MCH MCHC RDW Plt Count MPV Immature Gran % (Auto) Neut % (Auto) Lymph % (Auto) [place] % (Auto) Eos % (Auto) Baso % (Auto) Lymph # (Auto) [place] # (Auto) Eos # (Auto) Baso # (Auto) Abs Immat Gran (auto) Absolute Neuts (auto) Absolute Nucleated RBC Nucleated RBC % (auto) PT INR PTT (Heparin Protocol) Sodium Potassium Chloride Carbon Dioxide Anion Gap BUN Creatinine Estim Creat Clear Calc Estimated GFR POC Glucose 194 H 176 H Random Glucose Calcium Troponin I High Sens Triglycerides Cholesterol LDL Cholesterol, Calc HDL Cholesterol Preliminary micro results at discharge 02/06/21 05:54 Blood Culture - Preliminary Blood - Venous No growth after 24 hours. 02/06/21 05:54 Blood Culture - Preliminary Blood - Venous No growth after 24 hours. Discharge Plan Discharge Patient Disposition: Xfer Acute Care Hospital Discharge Diagnosis: NSTEMI Referrals: Anahi Lopez MD [Primary Care Provider] - 1 Week Discharge Medications: New heparin(porcine) in 0.45% NaCl 25,000 unit/250 mL Parenteral Solution 25,000 unit continuous IV infusion .Q0M Qty: 250 RF: 0 Continued (DME) insulin syringe-needle U-100 [BD Insulin Syringe] 1 mL 27 gauge x 1/2 syringe See Rx Instructions .ROUTE .MEDSUPPLY Qty: 100 RF: 0 (DME) Dexcom G6 Sensor Device See Rx Instructions .ROUTE .MEDSUPPLY Qty: 3 RF: 11 (DME) Dexcom G6 Transmitter Device See Rx Instructions .ROUTE .MEDSUPPLY Qty: 1 RF: 11 (DME) Dexcom G6 Strapping Machine Operator Misc See Rx Instructions .ROUTE .MEDSUPPLY Qty: 1 RF: 0 aspirin [Adult Aspirin Regimen] 81 mg tablet,delayed release (DR/EC) 81 mg PO DAILY RF: 0 (DME) pen needle, diabetic [Comfort EZ Pen [place]] 31 gauge x 5/16 needle See Rx Instructions .ROUTE .MEDSUPPLY Qty: 100 RF: 5 cetirizine 10 mg tablet 10 mg PO BEDTIME PRN (Reason: allergy symptoms) Qty: 30 RF: 1 morphine 15 mg tablet extended release 15 mg PO BID RF: 0 furosemide 40 mg tablet 1 tab PO DAILY RF: 0 morphine 15 mg tablet 15 mg PO DAILY PRN (Reason: severe pain) RF: 0 ascorbic acid (vitamin C) [Vitamin C] 500 mg Tablet 500 mg PO DAILY RF: 0 cholecalciferol (vitamin D3) [Vitamin D3] 125 mcg (5,000 unit) Tablet 125 mcg PO DAILY RF: 0 Probiotic 3 billion cell Capsule 3,000 mmu cells PO DAILY RF: 0 cephalexin 500 mg capsule 500 mg PO TID RF: 0 rosuvastatin 5 mg tablet 5 mg PO DAILY Qty: 30 RF: 5 losartan 25 mg tablet 25 mg PO DAILY Qty: 30 RF: 2 omeprazole 20 mg capsule,delayed release(DR/EC) 20 mg PO DAILY Qty: 90 RF: 3 Discharge Orders: Discharge Order (Routine); Ordered 02/07/21 Ordered By: Joanna Colon Diet: other Activity on Discharge: As tolerated Stand Alone Forms: Patient Portal Discharge page Care Plan Goals: Read below Health Concerns: Read below Plan of Treatment: Admitted for heart attack and treated with IV heparin per cardiology evaluation. Assessment: To be transferred to [facility] for angiogram.
[2021-02-07 18:15] LABS: PTT Heparin Drip 95.2 SEC (53-77.9)
[2021-02-07 19:23] VITALS: BP 132/70; PULSE 64; RESP 18; TEMP 36.6; O2SAT 97
== END 2021-02-07 21:10 | disposition short-term general hospital (02) | DRG 281 ==
LOC: HO.ED 04:05 → HO.EDOVER 11:31 → HO.IMC 15:30
PROVIDERS: Emergency Medicine; Family Medicine; Internal Medicine; Admitting Provider Nurse Practitioner Acute Care; Emergency Provider Emergency Medicine; PCP Internal Medicine; Visit Provider Student in an Organized Health Care Education/Training Program
DX: I21.4 Non-ST elevation (NSTEMI) myocardial infarction (principal); N17.9 Acute kidney failure, unspecified; E11.9 Type 2 diabetes mellitus without complications; Z20.822 Contact with and (suspected) exposure to COVID-19; Z87.891 Personal history of nicotine dependence; Z79.82 Long term (current) use of aspirin; Z79.899 Other long term (current) drug therapy
CPT/HCPCS: 36415; 71275; 74174; 80048; 80053; 80061; 81001; 82009; 82803; 82947; 83036; 83605; 83690; 84484; 85025; 85610; 85730; 87040; 87635; 93005; 93306; 96365; 96375; 96376; 99285; J1170; J2405; Q9957; Q9967

== ENCOUNTER 2021-02-07 06:33 | Outpatient (REF) | payer MEDICARE, SELFPAY | END 2021-02-07 06:34 | disposition home or self-care (01) | LOC: HO.RADIR 06:33 | PROVIDERS: Visit Provider Internal Medicine | DX: Z13.89 Encounter for screening for other disorder (principal) ==

== ENCOUNTER 2021-03-14 06:09 | Outpatient (REF) | payer MEDICARE, SELFPAY ==
--- NOTE | ~2021-03-14 | FL_ITS ---
EXAMINATION: XR FLUOROSCOPY WITH IMAGES CLINICAL INFORMATION: Myalgia. COMPARISON: None. TECHNIQUE: Fluoroscopy performed by Dr. Orosco. Fluoroscopy time: 0.5 minutes DAP: 2.32 Gycm2 Images: 3 FL/FL guidance in treatment room FINDINGS/IMPRESSION: Fluoroscopy was performed for procedural guidance. Please refer to the procedure report for more detailed findings.
== END 2021-03-14 06:10 | disposition home or self-care (01) ==
LOC: HO.RADIR 06:09
PROVIDERS: Visit Provider Internal Medicine
DX: M54.50 Low back pain, unspecified (principal); G89.29 Other chronic pain; M47.816 Spondylosis without myelopathy or radiculopathy, lumbar region; M79.18 Myalgia, other site
CPT/HCPCS: 64493; 64494; Q9967

== ENCOUNTER → 2021-03-23 08:05 | Outpatient (BNVA) | payer MEDICARE, SELFPAY | PROVIDERS: PCP Nurse Practitioner Family; Visit Provider Internal Medicine | DX: M47.816 Spondylosis without myelopathy or radiculopathy, lumbar region (principal) | CPT/HCPCS: 99212 ==

== ENCOUNTER → 2021-04-30 13:11 | Outpatient (BNVA) | payer MEDICARE, SELFPAY | PROVIDERS: PCP Internal Medicine; Visit Provider Internal Medicine | DX: E11.65 Type 2 diabetes mellitus with hyperglycemia (principal); E78.5 Hyperlipidemia, unspecified; E04.1 Nontoxic single thyroid nodule; I10 Essential (primary) hypertension; Z79.4 Long term (current) use of insulin | CPT/HCPCS: 82947; 83036; 99212 ==

== ENCOUNTER 2021-06-20 07:08 | Outpatient (REF) | payer MEDICARE, SELFPAY ==
--- NOTE | ~2021-06-20 | FL_ITS ---
EXAMINATION: XR FLUOROSCOPY WITH IMAGES CLINICAL INFORMATION: M47.816 - Spondylosis without myelopathy or radiculopathy COMPARISON: Lumbar spot films films 03/14/2021. TECHNIQUE: Fluoroscopy performed by Dr. Elmer Orosco. Fluoroscopy time: 0.1 minutes DAP: 1.68 Gycm2 Images: 1 FINDINGS: There is a spinal needle overlying the outer left L4 neural foramen. There may be contrast in the respective nerve sheaths L4 and L5. Degenerative changes with vertebral spurring are similar to prior exam. FL/FL guidance in treatment room IMPRESSION: Fluoroscopy for pain management procedures.
== END 2021-06-20 07:09 | disposition home or self-care (01) ==
LOC: HO.RADIR 07:08
PROVIDERS: Visit Provider Internal Medicine
DX: M47.816 Spondylosis without myelopathy or radiculopathy, lumbar region (principal)
CPT/HCPCS: 64555; C1778

== ENCOUNTER 2021-08-01 16:18 | Inpatient (IN) | payer MEDICARE, SELFPAY ==
--- NOTE | 2021-08-01 | ECG_ITS ---
Test Reason : chest pressure Blood Pressure : / mmHG Vent. Rate : 068 BPM Atrial Rate : 068 BPM P-R Int : 164 ms QRS Dur : 090 ms QT Int : 398 ms P-R-T Axes : 066 019 066 degrees QTc Int : 423 ms Normal sinus rhythm Normal ECG When compared with ECG of 06-FEB-2021 06:53, Fusion complexes are no longer Present Premature ventricular complexes are no longer Present ST no longer depressed in Anterior leads QT has shortened Referred By: Generic ED Physician Electronically Signed By:Bert De Los Santos
--- NOTE | ~2021-08-01 | CT_ITS ---
EXAMINATION: CT HEAD WITHOUT CONTRAST CLINICAL INFORMATION: Headache COMPARISON: Previous head CT and brain MRI April 2015 TECHNIQUE: Contiguous axial imaging was performed from the skull base to vertex without intravenous administration of contrast. This CT examination was performed using dose optimization techniques as appropriate, variously including the following: *Automated exposure control *Adjustment of mA and/or kV according to patient size (this includes techniques or standardized protocols for targeted exams where dose is matched to indication/reason for exam; i.e. extremities or head) *Use of iterative reconstruction technique DLP: 743 mGy-cm FINDINGS: There is no evidence of acute intracranial hemorrhage or territorial infarction. No abnormal mass effect or midline shift is seen. Thompson to white matter differentiation is well preserved. No extra-axial fluid collections are identified. The ventricles are normal in size. There is no abnormal attenuation within the brain parenchyma. The osseous structures and soft tissues are normal. The mastoid air cells and visualized portions of the paranasal sinuses are well aerated. CT/CT head/brain wo con IMPRESSION: No acute intracranial pathology.
--- NOTE | ~2021-08-01 | CT_ITS ---
EXAMINATION: CT ABDOMEN AND PELVIS WITHOUT CONTRAST CLINICAL INFORMATION: GI bleed and abdominal pain COMPARISON: Previous CT of the abdomen and pelvis most recent January 2021 TECHNIQUE: Multidetector volumetric imaging was performed from the superior aspect of the liver through the pubic symphysis. Sagittal and coronal reformatted images were obtained on the technologist's workstation. This CT examination was performed using dose optimization techniques as appropriate, variously including the following: *Automated exposure control *Adjustment of mA and/or kV according to patient size (this includes techniques or standardized protocols for targeted exams where dose is matched to indication/reason for exam; i.e. extremities or head) *Use of iterative reconstruction technique DLP: 743 mGy-cm FINDINGS: LUNG BASES: The visualized lung bases are unremarkable. LIVER, GALLBLADDER, AND BILIARY TREE: The liver is normal in size, shape, and attenuation. No focal hepatic lesion or biliary ductal dilatation is present. There are gallstones in the gallbladder. PANCREAS: There are multiple calcifications in the pancreas. The main pancreatic duct appears dilated. Likely represents changes of chronic pancreatitis. This is similar to January 2021 exam. SPLEEN: Unremarkable. ADRENAL GLANDS: Unremarkable. KIDNEYS AND URETERS: The kidneys are normal in size, shape, and attenuation. No hydronephrosis, hydroureter, or calculi seen. No perinephric stranding. BLADDER: Unremarkable. GASTROINTESTINAL TRACT: There is mild diverticulosis of the colon. No evidence of diverticulitis is seen. The small and large bowel are otherwise unremarkable. The appendix is unremarkable. ABDOMINAL WALL: There are multiple ventral hernias containing fat. There is bulge or broad-based hernia containing transverse colon. There is no evidence of obstruction. LYMPH NODES: Normal. VASCULAR: There is an aortobifemoral bypass graft. There are postsurgical changes seen at both groins. PELVIC VISCERA: Unremarkable. OSSEOUS STRUCTURES: There are degenerative changes of the spine. CT/CT abdomen pelvis wo con IMPRESSION: Mild diverticulosis. No evidence of diverticulitis. Stable changes of chronic pancreatitis. Small gallstones. Aortobifemoral bypass graft. Fleischner guidelines were followed.
--- NOTE | ~2021-08-01 | XR_ITS ---
EXAMINATION: XR CHEST CLINICAL INFORMATION: Chest pain COMPARISON: Previous chest x-ray December 2020 TECHNIQUE: Frontal view of the chest was obtained. FINDINGS: The cardiac and mediastinal contours are normal. The lungs are clear. There is no pleural effusion or pneumothorax. There are degenerative changes of the spine. XR/XR chest 1V IMPRESSION: No evidence for acute disease in the chest.
[2021-08-01 17:09] VITALS: BP 137/40; PULSE 75; RESP 18; TEMP 36.6; O2SAT 97; BMI 34.4
[2021-08-01 17:26] LABS: MANUAL DIFF FLAG NO
[2021-08-01 17:31] LABS: Basophils Absolute Auto 0.1 X10*3/uL (0.0-0.2); Basophils Percent Auto 0.6 % (0-2); Eosinophils Absolute Auto 0.4 X10*3/uL (0.0-0.4); Eosinophils Percent Auto 3.9 % (0-4); Hematocrit 24.3 % (42.0-52.0); Hemoglobin 8.1 g/dl (14.0-18.0); Imm Gran Abs Auto 0.05 X10*3/uL (0.00-0.03); Imm Gran Pct Auto 0.6 % (0.0-0.4); Lymphocytes Absolute Auto 2.8 X10*3/uL (1.2-4.9); Lymphocytes Percent Auto 31.2 % (20-40); Mean Corpuscular HGB Conc 33.3 g/dl (31.0-36.0); Mean Corpuscular Hemoglobin 28.4 pg (27.0-33.0); Mean Corpuscular Volume 85.3 fL (80.0-98.0); Mean Platelet Volume 11.3 fL (9.4-12.4); Monocytes Absolute Auto 0.5 X10*3/uL (0.1-1.2); Monocytes Percent Auto 5.8 % (2-11); Neutrophils Absolute Auto 5.2 x10*3/uL (2.0-8.3); Neutrophils Percent Auto 57.9 % (45-73); Platelet Count 177 X10*3/uL (160-400); Red Blood Count 2.85 X10*6/uL (4.60-5.80); Red Cell Distribution Width 14.6 % (11.0-16.0)
[2021-08-01 17:45] LABS: Anion Gap 13 (12-20); Blood Urea Nitrogen 28 mg/dL (9-16); Calcium 8.6 mg/dL (8.4-10.2); Carbon Dioxide 21 mmol/L (22-29); Chloride 107 mmol/L (96-108); Creatinine Clr Calc Pharmacy 61.5; Estimated Glomerular Filt Rate 52; Glucose Random 167 mg/dL (60-115); Potassium 3.8 mmol/L (3.3-5.1); Sodium 137 mmol/L (135-145)
[2021-08-01 17:49] LABS: Troponin-I High Sensitivity 21.4 ng/L (<3.5-35.0)
--- NOTE | 2021-08-01 19:53 | PC.NURSE ---
at bedside for primary eval.
--- NOTE | 2021-08-01 20:03 | ED_ITS ---
HPI - General Adult General Chief complaint: General Medical Stated complaint: heart problems? chest pressure, stabbing pain Time Seen by Provider: 08/01/21 20:02 Source: patient and family (Spouse) Mode of arrival: ambulatory Limitations: no limitations History of Present Illness HPI narrative: 70-year-old male walked into the emergency department for evaluation of lightheadedness and headache with black stool. Lightheadedness feeling of passing out and a knot for the past 3 days usually triggered by exertion, relieved by rest, patient also been having left-sided chest pain mostly with exertion low, to the left side of the chest, no radiation, slight shortness of breath, pain is intermittent only triggered with exertion. Also patient noted black tarry stool for the past 3 days, with mild but diffuse abdominal pain, no nausea or vomiting or diarrhea. Patient just change to cue to diet about 2 weeks ago. Patient also been feeling headache described as mild and intermittent about 5/10 now is about 1/10 triggered by exertion. Otherwise no photophobia, no neck stiffness, no nausea, no vomiting, no fever. Related Data Home Medications Medication Instructions Recorded Confirmed aspirin 81 mg tablet,delayed 81 mg PO DAILY 04/19/20 08/01/21 release (Adult Aspirin Regimen) ascorbic acid (vitamin C) 500 mg 500 mg PO DAILY 02/06/21 08/01/21 tablet (Vitamin C) cholecalciferol (vitamin D3) 125 125 mcg PO DAILY 02/06/21 08/01/21 mcg (5,000 unit) tablet (Vitamin D3) lactobacillus combination no.4 3 3,000 mmu cells PO DAILY 02/06/21 08/01/21 billion cell capsule (Probiotic) blood sugar diagnostic (USIS HOLDINGSTouch #10 ea 02/21/21 06/20/21 Verio test strips) blood-glucose meter (USIS HOLDINGSTouch #1 ea 02/21/21 06/20/21 Verio Reflect Meter) lancets 33 gauge (USIS HOLDINGSTouch Delica #100 ea 02/21/21 06/20/21 Plus Lancet) albuterol sulfate 90 mcg/actuation 2 puff PO Q6H PRN 08/01/21 08/01/21 aerosol inhaler rosuvastatin 20 mg tablet 20 mg PO BEDTIME 08/01/21 08/01/21 tamsulosin 0.4 mg capsule 1 cap PO BEDTIME 08/01/21 08/01/21 Previous Rx's Medication Instructions Recorded insulin syringe-needle U-100 1 mL #100 ea 03/09/20 27 gauge x 1/2 (BD Insulin Syringe) blood-glucose meter,continuous #1 ea 03/22/20 (Dexcom G6 Trader Fixed Income) clopidogrel 75 mg tablet 75 mg PO DAILY #30 tab 02/26/21 insulin lispro 100 unit/mL 5 - 10 unit (0.05 - 0.1 mL) SUBCUT 04/06/21 subcutaneous pen (Humalog KwikPen TID #15 ml (U-100) Insulin) insulin glargine 100 unit/mL (3 40 unit (0.4 mL) SUBCUT BEDTIME 04/11/21 mL) subcutaneous pen (Lantus #15 ml Solostar U-100 Insulin) blood-glucose sensor (Dexcom G6 #3 ea 04/18/21 Sensor) pregabalin 150 mg capsule 150 mg PO TID #90 cap 04/30/21 pen needle, diabetic 31 gauge x #100 ea 05/01/21/ (Comfort EZ Pen [place]) cephalexin 500 mg capsule 500 mg PO TID #270 cap 05/02/21 cetirizine 10 mg tablet 10 mg PO DAILY PRN #90 tab 05/02/21 losartan 25 mg tablet 25 mg PO DAILY #90 tab 05/02/21 furosemide 40 mg tablet 40 mg PO DAILY #90 tab 05/15/21 blood-glucose transmitter (Dexcom #1 ea 05/22/21 G6 Transmitter) Allergies Allergy/AdvReac Type Severity Reaction Status Date / Time No Known Allergies Allergy Unknown UNKNOWN Verified 08/01/21 17:09 Review of Systems Review of Systems: All other systems are reviewed and are negative Constitutional: Reports as per HPI and Reports no additional constitutional complaints Eyes: Reports as per HPI and Reports no additional eye complaints Reports system reviewed and no additional complaints, except as documented Cardiovascular: Reports as per HPI and Reports no additional cardiovascular complaints Respiratory: Reports as per HPI and Reports no additional respiratory complaints Gastrointestinal: Reports as per HPI and Reports no additional gastrointestinal complaints Genitourinary: Reports no additional female genitourinary complaints Musculoskeletal: Reports no additional musculoskeletal complaints Skin/Breast: Reports system reviewed and no additional complaints, except as docu Psychiatric: Reports no additional psychiatric complaints Endocrine: Reports no additional endocrine complaints Hematologic/Lymphatic: Reports no additional hematologic/lymphatic complaints Allergic/Immunologic: Reports no additional allergic/immunologic complaints Reports system reviewed and no additional complaints, except as documented and Reports Abnormal speech present [facility] Past Medical History Medical History BPH (benign prostatic hyperplasia) Chronic anemia Cough Diabetic retinopathy Goiter History of non-ST elevation myocardial infarction (NSTEMI) HLD (hyperlipidemia) HTN (hypertension) Lower back pain Neuropathy NSTEMI (non-ST elevated myocardial infarction) Post-nasal drainage PVD (peripheral vascular disease) Spondylosis of lumbar spine T2DM (type 2 diabetes mellitus) T2DM (type 2 diabetes mellitus) Thyroid nodule Type 2 diabetes mellitus with diabetic neuropathy Vitamin D deficiency Surgical History H/O [id number] bypass Hx of basal cell carcinoma excision S/P aorto-bifemoral bypass surgery Family History Family History Father Diabetes Mother Diabetes Leukemia Skin cancer Alzheimers disease Dementia Social History Social History Household Members: Spouse Housing: House Do you presently have visiting nurse or other home services: No Alcohol intake: never Patient Tobacco Use Status: Former Tobacco user Cigarette Packs Per Day: 3 Years Smoked: 20 e-Cigarette/Vaping Use: Never Used Second Hand Smoke Exposure: No Advance Directives: No Advance Directives Information Provided: No service: Yes Current occupational status: retired Physical Exam ED Vital Signs: Vital Signs - 24 hr 08/01/21 17:09 08/01/21 20:10 08/01/21 20:11 Temperature 97.9 F Pulse Rate 75 70 69 Respiratory Rate 18 Blood Pressure 137/40 L 142/66 H 143/50 H Pulse Oximetry 97 08/01/21 20:13 08/01/21 20:20 Temperature 99.2 F Pulse Rate 68 66 Respiratory Rate 14 Blood Pressure 143/60 H 143/60 H Pulse Oximetry 100 BMI result Body Mass Index 34.4 Vital signs have been reviewed as appeared to be correct. Blood pressure normal. Heart rate normal. Respiration rate normal. Temperature normal. Oxygen saturation normal. Appearance: Alert. Oriented X3. No acute distress. Head: Normal external exam. Normocephalic. Atraumatic. No Lao signs noted. No raccoon eyes noted Eyes: PERRLA. EOMI. Conjunctiva and sclera normal. Eyelids normal. ENT: TM's Normal. Pharynx normal. Uvula midline. Moist mucous membranes. No trismus noted. No drooling noted. No muffled voice noted. Neck: Normal inspection. Neck supple. FROM. No adenopathy. Thyroid Normal. No meningeal signs. No neck mass noted. CVS: Normal heart rate and rhythm. Heart sound normal. No murmurs noted. Pulses normal throughout. Respiratory: No respiratory distress. Painless inspiration. Breath sounds normal. No wheezes/rales/rhonchi noted. Chest nontender. No accessory muscle usage noted or decreased air movement noted. Abdomen: Soft and nontender. Bowel sounds normal in all 4 quadrants. No distention noted. No organomegaly noted. No visible injury noted. Rectal: Black turn stool guaiac positive. Back: No CVA tenderness. Full range of motion noted. Skin: Skin warm and dry. Normal skin color. Normal skin turgor. No rashes/lesions/lacerations noted. Extremities: No lower extremity edema. Extremities exhibit normal range of motion. Extremities nontender. Neuro: Oriented X 3. Cranial nerve exam: II-XII are grossly intact No motor deficit. No sensory deficit. Reflexes normal. Course Course Course Narrative: Assessment and plan. 70 years old male came in for lightheadedness with exertion, patient was positive for melena, patient is not taking anticoagulation but on Plavix and aspirin, dropping 3 units of hemoglobin compared to 2 months ago, CT of the abdomen and pelvis stable for acute pathology. Will admit for further GI evaluation. Medical Decision Making Medical Records Medical records reviewed: Yes I reviewed the patient's medical records. Lab Data Lab results reviewed: Yes I reviewed the patient's lab results. Result diagrams: 08/01/21 17:19 08/01/21 17:19 Labs: Lab Results 08/01/21 08/01/21 08/01/21 Range/Units 17:19 17:19 17:19 WBC 9.0 (4.8-10.8) X10*3/uL RBC 2.85 L (4.60-5.80) X10*6/uL Hgb 8.1 L (14.0-18.0) g/dl Hct 24.3 L (42.0-52.0) % MCV 85.3 (80.0-98.0) fL MCH 28.4 (27.0-33.0) pg MCHC 33.3 (31.0-36.0) g/dl RDW 14.6 (11.0-16.0) % Plt Count 177 (160-400) X10*3/uL MPV 11.3 (9.4-12.4) fL Immature Gran % (Auto) 0.6 H (0.0-0.4) % Neut % (Auto) 57.9 (45-73) % Lymph % (Auto) 31.2 (20-40) % [place] % (Auto) 5.8 (2-11) % Eos % (Auto) 3.9 (0-4) % Baso % (Auto) 0.6 (0-2) % Lymph # (Auto) 2.8 (1.2-4.9) X10*3/uL [place] # (Auto) 0.5 (0.1-1.2) X10*3/uL Eos # (Auto) 0.4 (0.0-0.4) X10*3/uL Baso # (Auto) 0.1 (0.0-0.2) X10*3/uL Abs Immat Gran (auto) 0.05 H (0.00-0.03) X10*3/uL Absolute Neuts (auto) 5.2 (2.0-8.3) x10*3/uL Absolute Nucleated RBC 0.000 (0.0-0.012) X10*3/uL Nucleated RBC % (auto) 0.0 (0.0-0.2) /100WBC Sodium 137 (135-145) mmol/L Potassium 3.8 (3.3-5.1) mmol/L Chloride 107 (96-108) mmol/L Carbon Dioxide 21 L (22-29) mmol/L Anion Gap 13 (12-20) BUN 28 H (9-16) mg/dL Creatinine 1.34 (0.5-1.4) mg/dL Estim Creat Clear Calc 61.5 Estimated GFR 52 Random Glucose 167 H (60-115) mg/dL Calcium 8.6 (8.4-10.2) mg/dL Troponin I High Sens 21.4 (<3.5-35.0) ng/L Stool Occult Blood (NEGATIVE) COVID-19 ([facility]ERINA) (Negative) COVID-19 Clin Com 08/01/21 08/01/21 08/01/21 Range/Units 20:16 20:16 20:16 WBC (4.8-10.8) X10*3/uL RBC (4.60-5.80) X10*6/uL Hgb (14.0-18.0) g/dl Hct (42.0-52.0) % MCV (80.0-98.0) fL MCH (27.0-33.0) pg MCHC (31.0-36.0) g/dl RDW (11.0-16.0) % Plt Count (160-400) X10*3/uL MPV (9.4-12.4) fL Immature Gran % (Auto) (0.0-0.4) % Neut % (Auto) (45-73) % Lymph % (Auto) (20-40) % [place] % (Auto) (2-11) % Eos % (Auto) (0-4) % Baso % (Auto) (0-2) % Lymph # (Auto) (1.2-4.9) X10*3/uL [place] # (Auto) (0.1-1.2) X10*3/uL Eos # (Auto) (0.0-0.4) X10*3/uL Baso # (Auto) (0.0-0.2) X10*3/uL Abs Immat Gran (auto) (0.00-0.03) X10*3/uL Absolute Neuts (auto) (2.0-8.3) x10*3/uL Absolute Nucleated RBC (0.0-0.012) X10*3/uL Nucleated RBC % (auto) (0.0-0.2) /100WBC Sodium (135-145) mmol/L Potassium (3.3-5.1) mmol/L Chloride (96-108) mmol/L Carbon Dioxide (22-29) mmol/L Anion Gap (12-20) BUN (9-16) mg/dL Creatinine (0.5-1.4) mg/dL Estim Creat Clear Calc Estimated GFR Random Glucose (60-115) mg/dL Calcium (8.4-10.2) mg/dL Troponin I High Sens 23.1 (<3.5-35.0) ng/L Stool Occult Blood POSITIVE (NEGATIVE) COVID-19 (SERINA) Negative (Negative) COVID-19 Clin Com See Note Imaging Data CT scan - abdomen: Attestation: I personally reviewed and interpreted this imaging study as follows: Radiologist's impression: Mild diverticulosis. No evidence of diverticulitis. Stable changes of chronic pancreatitis. Small gallstones. Aortobifemoral bypass graft. ? Head CT: Attestation: I personally reviewed and interpreted this imaging study as follows: Radiologist's impression: No acute intracranial pathology. ECG Data Attestation: I personally reviewed and interpreted this ECG as follows: Interpretation: Normal sinus rhythm at 68 beats per minute, normal intervals, no significant change from previous EKG Discharge Plan Discharge Clinical Impression: GI bleed Patient Disposition: Admitted As Inpatient Prescriptions: No Action (DME) insulin syringe-needle U-100 [BD Insulin Syringe] 1 mL 27 gauge x 1/2 syringe See Rx Instructions .ROUTE .MEDSUPPLY Qty: 100 0RF Rx Instructions: As directed (DME) Dexcom G6 Trader Fixed Income Misc See Rx Instructions .ROUTE .MEDSUPPLY Qty: 1 0RF Rx Instructions: As directed aspirin [Adult Aspirin Regimen] 81 mg tablet,delayed release (DR/EC) 81 mg PO DAILY 0RF clopidogrel 75 mg tablet 75 mg PO DAILY Qty: 30 1RF insulin lispro [Humalog KwikPen Insulin] 100 unit/mL insulin pen 5 - 10 unit subcut TID Qty: 15 3RF Lantus Solostar U-100 Insulin 100 unit/mL (3 mL) insulin pen 40 unit subcut BEDTIME Qty: 15 3RF (DME) Dexcom G6 Sensor Device See Rx Instructions .ROUTE .MEDSUPPLY Qty: 3 11RF Rx Instructions: As directed pregabalin 150 mg capsule 150 mg PO TID Qty: 90 3RF (DME) pen needle, diabetic [Comfort EZ Pen [place]] 31 gauge x 5/16 needle See Rx Instructions .ROUTE .MEDSUPPLY Qty: 100 5RF Rx Instructions: use 1 needle 5 times day day for insulin injections cephalexin 500 mg capsule 500 mg PO TID Qty: 270 0RF cetirizine 10 mg tablet 10 mg PO DAILY PRN (Reason: allergy symptoms) Qty: 90 3RF losartan 25 mg tablet 25 mg PO DAILY Qty: 90 3RF furosemide 40 mg tablet 40 mg PO DAILY Qty: 90 3RF (DME) Dexcom G6 Transmitter Device See Rx Instructions .ROUTE .MEDSUPPLY Qty: 1 1RF Rx Instructions: As directed ascorbic acid (vitamin C) [Vitamin C] 500 mg Tablet 500 mg PO DAILY 0RF cholecalciferol (vitamin D3) [Vitamin D3] 125 mcg (5,000 unit) Tablet 125 mcg PO DAILY 0RF Probiotic 3 billion cell Capsule 3,000 mmu cells PO DAILY 0RF tamsulosin 0.4 mg capsule 1 cap PO BEDTIME 0RF albuterol sulfate 90 mcg/actuation HFA aerosol inhaler 2 puff PO Q6H PRN (Reason: wheezing) 0RF rosuvastatin 20 mg tablet 20 mg PO BEDTIME 0RF (DME) lancets [OneTouch Delica Plus Lancet] 33 gauge misc See Rx Instructions ea topical QID Qty: 100 0RF Rx Instructions: As directed (DME) blood-glucose meter [OneTouch Verio Reflect Meter] Misc See Rx Instructions ea .ROUTE .MEDSUPPLY Qty: 1 0RF Rx Instructions: As directed (DME) OneTouch Verio test strips Strip See Rx Instructions ea Not Applicable QID Qty: 10 0RF Rx Instructions: As directed
[2021-08-01 20:10] VITALS: BP 142/66; PULSE 70
[2021-08-01 20:11] VITALS: BP 143/50; PULSE 69
[2021-08-01 20:13] VITALS: BP 143/60; PULSE 68
[2021-08-01 20:20] VITALS: BP 143/60; PULSE 66; RESP 14; TEMP 37.3; O2SAT 100
[2021-08-01 20:27] LABS: OBS Int Ctl Valid YES; OBS1 POSITIVE (NEGATIVE)
[2021-08-01 20:37] LABS: COVID-19 Test Negative (Negative)
[2021-08-01 20:50] LABS: Troponin-I High Sensitivity 23.1 ng/L (<3.5-35.0)
--- NOTE | 2021-08-01 20:51 | PHA.MEDREC ---
Pharmacy Consult ? Medication Reconciliation Pharmacy has completed the medication reconciliation. Patient is no longer on Toprol or pregabalin 75. Only taking lyrica 150mg TID. Thanks Jair Fay
--- NOTE | 2021-08-01 22:59 | PM.IMHP ---
History of Present Illness Date of Service: 08/01/21 Chief Complaint: Dizziness 70-year-old male with a past medical history of hypertension, hyperlipidemia, diabetes, history of peripheral vascular disease status post aortobifemoral bypass surgery; thyroid nodule; lumbar spine spondylosis; presented to the hospital today with a chief complaint of lightheadedness and dizziness. Patient reports that over the past 3 days he has been having lightheadedness and dizziness; also noted to have black tarry stools. At least 2 episodes per day. Home also complained of brief chest discomfort. Which currently resolved. Denies any fever chills cough. Denies any urinary symptoms. Review of all other systems is negative except mentioned above ER course: Per ER team patient noted to have guaiac-positive stool, black stool in the rectal what; hemoglobin drop from his baseline of 11.7-8.1. EKG nonischemic. Troponin negative. Admitted to the hospital for further management [facility] Medical History BPH (benign prostatic hyperplasia) Chronic anemia Cough Diabetic retinopathy Goiter History of non-ST elevation myocardial infarction (NSTEMI) HLD (hyperlipidemia) HTN (hypertension) Lower back pain Neuropathy NSTEMI (non-ST elevated myocardial infarction) Post-nasal drainage PVD (peripheral vascular disease) Spondylosis of lumbar spine T2DM (type 2 diabetes mellitus) T2DM (type 2 diabetes mellitus) Thyroid nodule Type 2 diabetes mellitus with diabetic neuropathy Vitamin D deficiency Family History Father Diabetes Mother Diabetes Leukemia Skin cancer Alzheimers disease Dementia Surgical History H/O btjoh-chvaf-ywdnroo bypass Hx of basal cell carcinoma excision S/P aorto-bifemoral bypass surgery Social History Household Members: Spouse Housing: House Do you presently have visiting nurse or other home services: No Alcohol intake: never Patient Tobacco Use Status: Former Tobacco user Tobacco use type: Cigarette Cigarette Packs Per Day: 3 Years Smoked: 30 e-Cigarette/Vaping Use: Never Used Second Hand Smoke Exposure: No Advance Directives Date on File: 08/02/21 service: Yes Current occupational status: retired Meds Allergies Allergy/AdvReac Type Severity Reaction Status Date / Time No Known Allergies Allergy Unknown UNKNOWN Verified 08/01/21 17:09 Active Medications: Current Medications Acetaminophen (Acetaminophen 325 Mg Tablet) 650 mg PO Q6H PRN PRN Reason: Pain, Mild (Pain Scale 1-3) Albuterol Sulfate (Albuterol Sulfate 90 Mcg 8 Gm Inhaler) 2 puff INHALE Q6H PRN PRN Reason: wheezing Atorvastatin Calcium (Atorvastatin Calcium 80 Mg Tablet) 80 mg PO BEDTIME [facility] Dextrose (Dextrose 50 % 25 Gm/50 Ml Syringe) 25 gm IVPUSH Q15M PRN; Protocol PRN Reason: per Hypoglycemia Standing Ord. Glucose (Glucose Gel 15 Gm Gel..Gram.) 15 gm PO Q15M PRN; Protocol PRN Reason: per Hypoglycemia Standing Ord. Sodium Chloride (Ns) 1,000 mls @ 100 mls/hr IVCONT .Q10H [facility] Insulin Glargine (Insulin Glargine,Hum.Rec.Anlog 100 Unit/Ml 10 Ml Vial) 20 unit SUBCUT BEDTIME [facility] Insulin Human Lispro (Insulin Lispro 100 Unit/Ml 3 Ml Vial) 0 unit SUBCUT QIDACHS [facility]; Protocol Loratadine (Loratadine 10 Mg Tablet) 10 mg PO DAILY PRN PRN Reason: allergy symptoms Melatonin (Melatonin 3 Mg Tablet) 6 mg PO BEDTIME PRN PRN Reason: Insomnia Pantoprazole Sodium (Pantoprazole Sodium 40 Mg/10 Ml Vial) 40 mg IVPUSH BID@0630,1630 [facility] Pharmacy Consult (Consult Rx Perform Med Rec) 1 each MISCELLANE ONCE PRN PRN Reason: Consult order Pregabalin (Pregabalin 150 Mg Capsule) 150 mg PO TID [facility] Senna (Sennosides 8.6 Mg Tablet) 17.2 mg PO BEDTIME PRN PRN Reason: Constipation Sodium Chloride (0.9 % Sodium Chloride Flush 3 Ml Syringe) 3 ml IVFLUSH QSHIFT [facility] Tamsulosin HCl (Tamsulosin Hcl 0.4 Mg Capsule) 0.4 mg PO BEDTIME [facility] Home Medications Medication Instructions Recorded Confirmed Last Taken Type aspirin 81 mg tablet,delayed 81 mg PO DAILY 04/19/20 08/01/21 08/01/21 History release (Adult Aspirin Regimen) ascorbic acid (vitamin C) 500 mg 500 mg PO DAILY 02/06/21 08/01/21 08/01/21 History tablet (Vitamin C) cholecalciferol (vitamin D3) 125 125 mcg PO DAILY 02/06/21 08/01/21 08/01/21 History mcg (5,000 unit) tablet (Vitamin D3) lactobacillus combination no.4 3 3,000 mmu cells PO DAILY 02/06/21 08/01/21 08/01/21 History billion cell capsule (Probiotic) blood sugar diagnostic (OpenXTouch #10 ea 02/21/21 06/20/21 Unknown History Verio test strips) blood-glucose meter (OpenXTouch #1 ea 02/21/21 06/20/21 Unknown History Verio Reflect Meter) lancets 33 gauge (OpenXTouch Delica #100 ea 02/21/21 06/20/21 Unknown History Plus Lancet) albuterol sulfate 90 mcg/actuation 2 puff PO Q6H PRN 08/01/21 08/01/21 Unknown History aerosol inhaler rosuvastatin 20 mg tablet 20 mg PO BEDTIME 08/01/21 08/01/21 07/31/21 History tamsulosin 0.4 mg capsule 1 cap PO BEDTIME 08/01/21 08/01/21 07/31/21 History Physical Exam Vital Signs and Narrative: Vital Signs: Last Vital Signs Temp 99.2 F 08/01/21 20:20 Pulse 66 08/01/21 20:20 Resp 14 08/01/21 20:20 BP 143/60 H 08/01/21 20:20 Pulse Ox 100 08/01/21 20:20 BMI result Body Mass Index 34.4 Gen: Appears be in no acute distress HEENT: NCAT, Moist mucosa. Pulmonary: Vesicular breath sounds, fair air entry CVS: Normal S1-S2 Abdomen: BS+, Soft, Nontender Extremities: Warm well perfused Neuro: Alert and awake. Results Labs CBC and Chem 7: 08/02/21 05:47 08/02/21 05:47 Labs: Laboratory Results - last 24 hr 08/01/21 08/01/21 08/01/21 17:19 17:19 20:16 MCV 85.3 MCH 28.4 MCHC 33.3 RDW 14.6 Plt Count 177 MPV 11.3 Immature Gran % (Auto) 0.6 H Neut % (Auto) 57.9 Lymph % (Auto) 31.2 Kings % (Auto) 5.8 Eos % (Auto) 3.9 Baso % (Auto) 0.6 Lymph # (Auto) 2.8 Kings # (Auto) 0.5 Eos # (Auto) 0.4 Baso # (Auto) 0.1 Abs Immat Gran (auto) 0.05 H Absolute Neuts (auto) 5.2 Absolute Nucleated RBC 0.000 Nucleated RBC % (auto) 0.0 Anion Gap 13 Estim Creat Clear Calc 61.5 Estimated GFR 52 Random Glucose 167 H Calcium 8.6 Stool Occult Blood POSITIVE COVID-19 ([facility]) COVID-19 Clin Com 08/01/21 20:16 MCV MCH MCHC RDW Plt Count MPV Immature Gran % (Auto) Neut % (Auto) Lymph % (Auto) Kings % (Auto) Eos % (Auto) Baso % (Auto) Lymph # (Auto) Kings # (Auto) Eos # (Auto) Baso # (Auto) Abs Immat Gran (auto) Absolute Neuts (auto) Absolute Nucleated RBC Nucleated RBC % (auto) Anion Gap Estim Creat Clear Calc Estimated GFR Random Glucose Calcium Stool Occult Blood COVID-19 ([facility]) Negative COVID-19 Clin Com See Note Imaging Radiologist's Impressions: Impressions Abdomen/Pelvis CT 08/01/21 20:54 IMPRESSION: Mild diverticulosis. No evidence of diverticulitis. Stable changes of chronic pancreatitis. Small gallstones. Aortobifemoral bypass graft. Fleischner guidelines were followed. Head CT 08/01/21 20:54 IMPRESSION: No acute intracranial pathology. Chest X-Ray 08/01/21 22:26 IMPRESSION: No evidence for acute disease in the chest. Assessment and Plan (1) GI bleed: Status: Acute (2) T2DM (type 2 diabetes mellitus): Status: Acute Plan 70-year-old male with a past medical history of hypertension, hyperlipidemia, diabetes, history of peripheral vascular disease status post aortobifemoral bypass surgery; thyroid nodule; lumbar spine spondylosis; presented to the hospital today with a chief complaint of lightheadedness and dizziness/ black stool. Admitted for following GI bleed: Patient stool guaiac was positive. Noted black stool in the rectal wall. Hemoglobin dropped from 11.8-8.1. serial H&H IV PPI GI consult for further recommendations Lightheadedness: Likely in the setting of GI bleed. Hold home antihypertensives and diuretics for now. Supportive care. Chest discomfort currently resolved. EKG nonischemic. Troponins 21 followed by 21. Diabetes: Insulin sliding scale. Will reduce the home dose of Lantus to 20 units. Monitor fingerstick glucose. History of peripheral vascular disease status post Aortofemoral bypass surgery: patient on aspirin Plavix-will hold for now Until cleared by GI. 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 to be continued. DVT prophylaxis: SCD boots Code status: Full code Quality Stroke Does the patient have a stroke diagnosis?: No VTE Prior VTE?: No VTE Risk Level:: Medical - moderate - high VTE Device Contraindication: N/A - Device Ordered VTE Drug Contraindication: Treatment Not Indicated
[2021-08-02] VITALS (15 sets, daily range): BP systolic 99–179; BP diastolic 42–90; PULSE 55–100; RESP 12–20; TEMP 36.3–37.9; O2SAT 95–100; BMI 37.0
--- NOTE | 2021-08-02 | ECG_ITS ---
Test Reason : cp Blood Pressure : / mmHG Vent. Rate : 092 BPM Atrial Rate : 092 BPM P-R Int : 172 ms QRS Dur : 092 ms QT Int : 364 ms P-R-T Axes : 074 044 077 degrees QTc Int : 450 ms Sinus rhythm with occasional Premature ventricular complexes Cannot rule out Anterior infarct , age undetermined Abnormal ECG When compared with ECG of 01-AUG-2021 17:01, Premature ventricular complexes are now Present Referred By: Don Ramos Electronically Signed By:Bert De Los Santos
[2021-08-02] MEDS: 0.9 % Sodium Chloride 1,000 ML 100 ML IVCONT (00:03)
[2021-08-02] MEDS: 0.9 % Sodium Chloride Flush 3 ML SYRINGE IVFLUSH ×3 (00:03→23:33)
[2021-08-02 01:31] LABS: Iron 41 mcg/dL (45-160); Percent Iron Saturation 12 % (15-50); Total Iron Binding Capacity 330 mcg/dL (228-428); Unsaturated Iron Binding 289 ug/dL
[2021-08-02] MEDS: LORazepam 0.5 MG TABLET PO (03:15)
--- NOTE | 2021-08-02 04:23 | PC.NURSE ---
Hospitalist at bedside for primary eval.
[2021-08-02] MEDS: Pantoprazole Sodium 40 MG/10 ML VIAL IVPUSH ×2 (06:06→16:56)
[2021-08-02 06:09] LABS: MANUAL DIFF FLAG NO
[2021-08-02 06:12] LABS: Basophils Percent Auto 0.4 % (0-2); Eosinophils Absolute Auto 0.4 X10*3/uL (0.0-0.4); Eosinophils Percent Auto 6.5 % (0-4); Hematocrit 22.2 % (42.0-52.0); Hemoglobin 7.4 g/dl (14.0-18.0); Imm Gran Abs Auto 0.01 X10*3/uL (0.00-0.03); Imm Gran Pct Auto 0.1 % (0.0-0.4); Lymphocytes Absolute Auto 2.8 X10*3/uL (1.2-4.9); Lymphocytes Percent Auto 40.8 % (20-40); Mean Corpuscular HGB Conc 33.3 g/dl (31.0-36.0); Mean Corpuscular Hemoglobin 28.4 pg (27.0-33.0); Mean Corpuscular Volume 85.1 fL (80.0-98.0); Mean Platelet Volume 11.3 fL (9.4-12.4); Monocytes Absolute Auto 0.5 X10*3/uL (0.1-1.2); Monocytes Percent Auto 7.5 % (2-11); Neutrophils Percent Auto 44.7 % (45-73); Platelet Count 148 X10*3/uL (160-400); Red Blood Count 2.61 X10*6/uL (4.60-5.80); Red Cell Distribution Width 14.8 % (11.0-16.0); White Blood Count 6.8 X10*3/uL (4.8-10.8)
[2021-08-02 06:29] LABS: Magnesium 2.2 mg/dL (1.6-2.6)
[2021-08-02 06:31] LABS: Anion Gap 10 (12-20); Blood Urea Nitrogen 26 mg/dL (9-16); Calcium 8.5 mg/dL (8.4-10.2); Carbon Dioxide 24 mmol/L (22-29); Chloride 109 mmol/L (96-108); Creatinine Clr Calc Pharmacy 71.7; Estimated Glomerular Filt Rate > 60; Glucose Random 123 mg/dL (60-115); Potassium 3.8 mmol/L (3.3-5.1); Sodium 139 mmol/L (135-145)
[2021-08-02 07:18] LABS: Glucose, Whole Blood 120 mg/dL (60-115)
--- NOTE | 2021-08-02 08:50 | MHC.SHP ---
Pre-Procedural Eval Section A Date of Service: 08/02/21 The patient is an INPATIENT: Yes The History & Physical has been completed within 30 days and I have reviewed it.: Yes Section B Chief Complaint: GI Bleed Allergies: Allergies Allergy/AdvReac Type Severity Reaction Status Date / Time No Known Allergies Allergy Unknown UNKNOWN Verified 08/01/21 17:09 Plan I have reviewed the history and physical and performed a pertinent physical examination on my patient. No changes have occurred unless specified.
--- NOTE | 2021-08-02 08:54 | PM.EVENT ---
Event Note Date of Service: 08/02/21 Event Note: GI Consult-Full note dictated Imp: Melena and anemia in 70 yo male on ASA/Plavix for PVD. He does report being on Prilosec at home. Other than melena he denies any other GI sx. He has had no signs of bleeding as of today. His abd exam is benign and the Abdominal/Pelvic CT was nonrevealing. Diff dx: PUD, erosive gastritis, esophagitis. Rec: IV PPI. Check PT/INR. Give at least 1 unit of PRBC given repeat Hgb of 7.4. EGD with MAC with me or Dr. Torres. Full consent obtained for this, including risks of bleeding and perforation. Thanks.
[2021-08-02 09:33] LABS: INTERNATIONAL NORM RATIO 1.1 (0.9-1.1); Prothrombin Time 12.2 SEC (9.9-13.0)
--- NOTE | 2021-08-02 09:33 | HO.PM.IMPN ---
Subjective Subjective Date of Service: 08/02/21 Interval History: cc: melena interval history: a bit lightheaded Cardiovascular Cardiovascular: Reports no additional cardiovascular complaints Respiratory Respiratory: Reports no additional respiratory complaints Physical Exam Vital Signs: Vital Signs: Last Vital Signs Temp 99.2 F 08/01/21 20:20 Pulse 57 08/02/21 09:21 Resp 20 08/02/21 09:21 BP 99/57 L 08/02/21 09:21 Pulse Ox 96 08/02/21 09:21 BMI result Body Mass Index 34.4 General: AO X 3, no acute distress Resp: CTA bilateral, no accessory muscles used CVS: S1,S2,RRR GI: soft, non tender, non distended Neuro: motor grossly intact, alert Psych: appropriate affect, appropriate insight Objective Data Active Medications Acetaminophen (Acetaminophen 325 Mg Tablet) 650 mg PO Q6H PRN PRN Reason: Pain, Mild (Pain Scale 1-3) Albuterol Sulfate (Albuterol Sulfate 90 Mcg 8 Gm Inhaler) 2 puff INHALE Q6H PRN PRN Reason: wheezing Atorvastatin Calcium (Atorvastatin Calcium 80 Mg Tablet) 80 mg PO BEDTIME [facility] Dextrose (Dextrose 50 % 25 Gm/50 Ml Syringe) 25 gm IVPUSH Q15M PRN; Protocol PRN Reason: per Hypoglycemia Standing Ord. Glucose (Glucose Gel 15 Gm Gel..Gram.) 15 gm PO Q15M PRN; Protocol PRN Reason: per Hypoglycemia Standing Ord. Sodium Chloride (Ns) 1,000 mls @ 100 mls/hr IVCONT .Q10H [facility] Last Admin: 08/02/21 00:03 Dose: 100 mls/hr Documented by: [facility] Insulin Glargine (Insulin Glargine,Hum.Rec.Anlog 100 Unit/Ml 10 Ml Vial) 20 unit SUBCUT BEDTIME [facility] Insulin Human Lispro (Insulin Lispro 100 Unit/Ml 3 Ml Vial) 0 unit SUBCUT QIDACHS [facility]; Protocol Last Admin: 08/02/21 07:30 Dose: Not Given Documented by: NHUNG Non-Admin Reason: No Insulin Coverage Loratadine (Loratadine 10 Mg Tablet) 10 mg PO DAILY PRN PRN Reason: allergy symptoms Melatonin (Melatonin 3 Mg Tablet) 6 mg PO BEDTIME PRN PRN Reason: Insomnia Pantoprazole Sodium (Pantoprazole Sodium 40 Mg/10 Ml Vial) 40 mg IVPUSH BID@0630,1630 [facility] Last Admin: 08/02/21 06:06 Dose: 40 mg Documented by: [facility] Pharmacy Consult (Consult Rx Perform Med Rec) 1 each MISCELLANE ONCE PRN PRN Reason: Consult order Pregabalin (Pregabalin 150 Mg Capsule) 150 mg PO TID [facility] Senna (Sennosides 8.6 Mg Tablet) 17.2 mg PO BEDTIME PRN PRN Reason: Constipation Sodium Chloride (0.9 % Sodium Chloride Flush 3 Ml Syringe) 3 ml IVFLUSH QSHIFT [facility] Last Admin: 08/02/21 00:03 Dose: 3 ml Documented by: [facility]RA Tamsulosin HCl (Tamsulosin Hcl 0.4 Mg Capsule) 0.4 mg PO BEDTIME [facility] Labs CBC & Chem 7: 08/02/21 05:47 08/02/21 05:47 Labs: Laboratory Results - last 24 hr 08/01/21 08/01/21 08/01/21 17:19 17:19 20:16 MCV 85.3 MCH 28.4 MCHC 33.3 RDW 14.6 Plt Count 177 MPV 11.3 Immature Gran % (Auto) 0.6 H Neut % (Auto) 57.9 Lymph % (Auto) 31.2 [place] % (Auto) 5.8 Eos % (Auto) 3.9 Baso % (Auto) 0.6 Lymph # (Auto) 2.8 [place] # (Auto) 0.5 Eos # (Auto) 0.4 Baso # (Auto) 0.1 Abs Immat Gran (auto) 0.05 H Absolute Neuts (auto) 5.2 Absolute Nucleated RBC 0.000 Nucleated RBC % (auto) 0.0 PT INR Anion Gap 13 Estim Creat Clear Calc 61.5 Estimated GFR 52 POC Glucose Random Glucose 167 H Calcium 8.6 Magnesium Iron TIBC % Saturation Unsat Iron Binding Stool Occult Blood POSITIVE COVID-19 ([facility]) COVID-19 Clin Com 08/01/21 08/01/21 08/02/21 20:16 23:16 05:47 MCV 85.1 MCH 28.4 MCHC 33.3 RDW 14.8 Plt Count 148 L MPV 11.3 Immature Gran % (Auto) 0.1 Neut % (Auto) 44.7 L Lymph % (Auto) 40.8 H [place] % (Auto) 7.5 Eos % (Auto) 6.5 H Baso % (Auto) 0.4 Lymph # (Auto) 2.8 [place] # (Auto) 0.5 Eos # (Auto) 0.4 Baso # (Auto) 0.0 Abs Immat Gran (auto) 0.01 Absolute Neuts (auto) 3.0 Absolute Nucleated RBC 0.000 Nucleated RBC % (auto) 0.0 PT INR Anion Gap Estim Creat Clear Calc Estimated GFR POC Glucose Random Glucose Calcium Magnesium Iron 41 L TIBC 330 % Saturation 12 L Unsat Iron Binding 289 Stool Occult Blood COVID-19 ([facility]) Negative COVID-19 Clin Com See Note 08/02/21 08/02/21 08/02/21 05:47 05:47 07:14 MCV MCH MCHC RDW Plt Count MPV Immature Gran % (Auto) Neut % (Auto) Lymph % (Auto) [place] % (Auto) Eos % (Auto) Baso % (Auto) Lymph # (Auto) [place] # (Auto) Eos # (Auto) Baso # (Auto) Abs Immat Gran (auto) Absolute Neuts (auto) Absolute Nucleated RBC Nucleated RBC % (auto) PT INR Anion Gap 10 L Estim Creat Clear Calc 71.7 Estimated GFR > 60 POC Glucose 120 H Random Glucose 123 H Calcium 8.5 Magnesium 2.2 Iron TIBC % Saturation Unsat Iron Binding Stool Occult Blood COVID-19 ([facility]) COVID-19 Clin Com 08/02/21 09:13 MCV MCH MCHC RDW Plt Count MPV Immature Gran % (Auto) Neut % (Auto) Lymph % (Auto) [place] % (Auto) Eos % (Auto) Baso % (Auto) Lymph # (Auto) [place] # (Auto) Eos # (Auto) Baso # (Auto) Abs Immat Gran (auto) Absolute Neuts (auto) Absolute Nucleated RBC Nucleated RBC % (auto) PT 12.2 INR 1.1 Anion Gap Estim Creat Clear Calc Estimated GFR POC Glucose Random Glucose Calcium Magnesium Iron TIBC % Saturation Unsat Iron Binding Stool Occult Blood COVID-19 ([facility]) COVID-19 Clin Com Assessment and Plan (1) GI bleed: Status: Acute Plan 70M presented with melena acute blood loss anemia due to upper gi bleed hgb dropped to 7.4, will transfuse 1 unit prbc, monitor cbc protonix IV plan for EGD today, patient moderate risk due to CAD, DM, no active cardiac issues, benefits of EGD outweight risks, would proceed without further work up CAD, PVD holding DAPL continue statin DM in[place]lin, monitor poc htn hold bp meds while bleeding dvt prophylaxis - mechanical due to bleeding full code reason for continued hospitalization: actively bleeding, requiring transfusion, iv protonix, egd Quality Stroke Does the patient have a stroke diagnosis?: No VTE Prior VTE?: No VTE Risk Level:: Medical - moderate - high VTE Device Contraindication: N/A - Device Ordered VTE Drug Contraindication: Treatment Not Indicated
--- NOTE | 2021-08-02 10:26 | CONS_ITS ---
DATE OF SERVICE: 08/02/2021 REASON FOR CONSULTATION: Melena and anemia. HISTORY OF PRESENT ILLNESS: The patient is a 70-year-old male, on chronic aspirin and Plavix in relation to peripheral vascular disease, who presents with some lightheadedness and the description of black stools over the past week or so. He denies any previous history of GI bleeding nor ulcer disease. He does take a daily Prilosec, but denies any recent increased heartburn, anorexia, nor dysphagia. He denies any hematochezia. He does describe a previous history of a colonoscopy, although is not sure about any of the details. He has never had an upper endoscopy. He denies any tobacco use, alcohol use, nor use of any chronic NSAIDs. He presently denies any abdominal pain. He has not had a bowel movement since yesterday. His initial hemoglobin in the ER was 8.1 with a repeat of 7.4. Hemoglobin in January 2021 was 11.7. Platelet count was 148,000. PT with INR is currently pending. His initial BUN was 28 with a creatinine of 1.3 and a repeat BUN of 26 with a creatinine of 1.2. Stool in the ER was Hemoccult positive as well. MEDICATIONS: At home included albuterol inhaler p.r.n., aspirin 81 mg, vitamin D, Plavix, furosemide, insulin, losartan, pregabalin, rosuvastatin, tamsulosin. His medications here in the hospital include atorvastatin, insulin, IV Protonix, pregabalin, Senokot, tamsulosin. PAST MEDICAL HISTORY: Peripheral vascular disease with bilateral aortofemoral bypass about 1 year ago in [place] done at [facility]. He describes previous history of MIs as well. Insulin-dependent diabetes mellitus. Hyperlipidemia. Hypertension. Enlarged prostate. He denies any other surgeries. SOCIAL HISTORY: He is . He is retired. He stopped smoking over 20 years ago. He does not use any alcohol. FAMILY HISTORY: Noncontributory. REVIEW OF SYSTEMS: CONSTITUTIONAL: He has been feeling lightheaded and somewhat weak at home. Appetite has been normal. CARDIAC: No chest pain. PULMONARY: No cough. No hemoptysis. GI: As above. URINARY: No dysuria. No hematuria. PHYSICAL EXAMINATION: GENERAL: The patient is a pleasant, alert, comfortable-appearing male, in no distress. SKIN: Warm and dry. EYES: Anicteric sclerae. Nonjaundiced. NECK: Supple without lymphadenopathy. CARDIAC: Normal S1, S2. ABDOMEN: Soft, nondistended, nontender without mass. RECTAL: By the ER provider revealed black and heme-positive stool. LABORATORY DATA: As above. Normal electrolytes. He did have a CT scan of the abdomen and pelvis describing changes of some chronic pancreatitis, small gallstones, mild diverticulosis, but no other acute abnormalities. IMPRESSION: Given the patient's clinical history, this seems consistent with an upper gastrointestinal bleed. Although he is already on Prilosec at home by his description, this may represent ulcer disease, erosive gastritis, and/or esophagitis given his chronic use of aspirin and blood thinners. At this point, I would recommend eventual upper endoscopy with monitored anesthesia care. Full consent has been obtained from him for that, including risks of bleeding and perforation. In the meantime, I will continue his IV PPI, check his PT with INR, and would recommend transfusing at least 1 unit of blood given his current hemoglobin of 7.4. I did advise the patient the procedure would be done either by myself or Dr. Torres. The patient was comfortable with this plan. Thank you for the consultation. MD YELENA Campos/JEANETTE / [phone]
--- NOTE | 2021-08-02 10:44 | HO.ANESPROP2 ---
FORMERLY [facility] Active Problems Active Problems: All Active Problems (Updated 08/01/21 @ 22:20 by Fermin Foote MD) GI bleed (Acute) T2DM (type 2 diabetes mellitus) (Acute) Spondylosis of lumbar spine (Acute) HTN (hypertension) (Acute) History of non-ST elevation myocardial infarction (NSTEMI) (Acute) S/P aorto-bifemoral bypass surgery (Acute) PVD (peripheral vascular disease) (Acute) Post-nasal drainage (Acute) Type 2 diabetes mellitus with diabetic neuropathy (Acute) Thyroid nodule (Acute) HLD (hyperlipidemia) (Acute) Lower back pain (Acute) Myofascial pain syndrome of lumbar spine (Acute) T2DM (type 2 diabetes mellitus) (Acute) Neuropathy (Acute) Chronic anemia (Acute) Carotid bruit (Acute) Obesity (Acute) Groin abscess (Acute) Pleural effusion (Acute) Cough (Acute) BPH (benign prostatic hyperplasia) (Acute) Diabetic retinopathy (Acute) Goiter (Acute) Vitamin D deficiency (Acute) Past Medical History Medical History BPH (benign prostatic hyperplasia) Chronic anemia Cough Diabetic retinopathy Goiter History of non-ST elevation myocardial infarction (NSTEMI) HLD (hyperlipidemia) HTN (hypertension) Lower back pain Neuropathy NSTEMI (non-ST elevated myocardial infarction) Post-nasal drainage PVD (peripheral vascular disease) Spondylosis of lumbar spine T2DM (type 2 diabetes mellitus) T2DM (type 2 diabetes mellitus) Thyroid nodule Type 2 diabetes mellitus with diabetic neuropathy Vitamin D deficiency Family History Family History Father Diabetes Mother Diabetes Leukemia Skin cancer Alzheimers disease Dementia Surgical History Surgical History H/O vsabf-caagh-aefonlp bypass Hx of basal cell carcinoma excision S/P aorto-bifemoral bypass surgery History of Problems with Anesthesia: No Social History Social History Household Members: Spouse Housing: House Do you presently have visiting nurse or other home services: No Alcohol intake: never Patient Tobacco Use Status: Former Tobacco user Cigarette Packs Per Day: 3 Years Smoked: 20 e-Cigarette/Vaping Use: Never Used Second Hand Smoke Exposure: No Advance Directives: Yes Advance Directives on File: Yes Advance Directives Date on File: 08/02/21 service: Yes Current occupational status: retired Meds Allergies Allergy/AdvReac Type Severity Reaction Status Date / Time No Known Allergies Allergy Unknown UNKNOWN Verified 08/01/21 17:09 Active Medications: Current Medications Acetaminophen (Acetaminophen 325 Mg Tablet) 650 mg PO Q6H PRN PRN Reason: Pain, Mild (Pain Scale 1-3) Albuterol Sulfate (Albuterol Sulfate 90 Mcg 8 Gm Inhaler) 2 puff INHALE Q6H PRN PRN Reason: wheezing Atorvastatin Calcium (Atorvastatin Calcium 80 Mg Tablet) 80 mg PO BEDTIME TESS Dextrose (Dextrose 50 % 25 Gm/50 Ml Syringe) 25 gm IVPUSH Q15M PRN; Protocol PRN Reason: per Hypoglycemia Standing Ord. Glucose (Glucose Gel 15 Gm Gel..Gram.) 15 gm PO Q15M PRN; Protocol PRN Reason: per Hypoglycemia Standing Ord. Sodium Chloride (Ns) 1,000 mls @ 100 mls/hr IVCONT .Q10H [facility] Last Admin: 08/02/21 00:03 Dose: 100 mls/hr Documented by: Insulin Glargine (Insulin Glargine,Hum.Rec.Anlog 100 Unit/Ml 10 Ml Vial) 20 unit SUBCUT BEDTIME [facility] Insulin Human Lispro (Insulin Lispro 100 Unit/Ml 3 Ml Vial) 0 unit SUBCUT QIDACHS [facility]; Protocol Last Admin: 08/02/21 07:30 Dose: Not Given Documented by: Loratadine (Loratadine 10 Mg Tablet) 10 mg PO DAILY PRN PRN Reason: allergy symptoms Melatonin (Melatonin 3 Mg Tablet) 6 mg PO BEDTIME PRN PRN Reason: Insomnia Pantoprazole Sodium (Pantoprazole Sodium 40 Mg/10 Ml Vial) 40 mg IVPUSH BID@0630,1630 [facility] Last Admin: 08/02/21 06:06 Dose: 40 mg Documented by: Pharmacy Consult (Consult Rx Perform Med Rec) 1 each MISCELLANE ONCE PRN PRN Reason: Consult order Pregabalin (Pregabalin 150 Mg Capsule) 150 mg PO TID TESS Senna (Sennosides 8.6 Mg Tablet) 17.2 mg PO BEDTIME PRN PRN Reason: Constipation Sodium Chloride (0.9 % Sodium Chloride Flush 3 Ml Syringe) 3 ml IVFLUSH QSHIFT [facility] Last Admin: 08/02/21 00:03 Dose: 3 ml Documented by: Tamsulosin HCl (Tamsulosin Hcl 0.4 Mg Capsule) 0.4 mg PO BEDTIME [facility] Home Medications Medication Instructions Recorded Confirmed Last Taken Type aspirin 81 mg tablet,delayed 81 mg PO DAILY 04/19/20 08/01/21 08/01/21 History release (Adult Aspirin Regimen) ascorbic acid (vitamin C) 500 mg 500 mg PO DAILY 02/06/21 08/01/21 08/01/21 History tablet (Vitamin C) cholecalciferol (vitamin D3) 125 125 mcg PO DAILY 02/06/21 08/01/21 08/01/21 History mcg (5,000 unit) tablet (Vitamin D3) lactobacillus combination no.4 3 3,000 mmu cells PO DAILY 02/06/21 08/01/21 08/01/21 History billion cell capsule (Probiotic) blood sugar diagnostic (Zonit Structured SolutionsTouch #10 ea 02/21/21 06/20/21 Unknown History Verio test strips) blood-glucose meter (Zonit Structured SolutionsTouch #1 ea 02/21/21 06/20/21 Unknown History Verio Reflect Meter) lancets 33 gauge (OneTouch Delica #100 ea 02/21/21 06/20/21 Unknown History Plus Lancet) albuterol sulfate 90 mcg/actuation 2 puff PO Q6H PRN 08/01/21 08/01/21 Unknown History aerosol inhaler rosuvastatin 20 mg tablet 20 mg PO BEDTIME 08/01/21 08/01/21 07/31/21 History tamsulosin 0.4 mg capsule 1 cap PO BEDTIME 08/01/21 08/01/21 07/31/21 History Exam Exam Date and Time: August 02, 2021 1044 Height,Weight and Vital Signs: Height 5 ft 10 in Weight 108.862 kg Last Vital Signs Temp 99.2 F 08/01/21 20:20 Pulse 57 08/02/21 09:21 Resp 20 08/02/21 09:21 BP 99/57 L 08/02/21 09:21 Pulse Ox 96 08/02/21 09:21 Pertinent Lab Results Pertinent Lab Results: Laboratory Tests 08/01/21 08/01/21 08/01/21 17:19 17:19 17:19 WBC 9.0 RBC 2.85 L Hgb 8.1 L Hct 24.3 L MCV 85.3 MCH 28.4 MCHC 33.3 RDW 14.6 Plt Count 177 MPV 11.3 Immature Gran % (Auto) 0.6 H Neut % (Auto) 57.9 Lymph % (Auto) 31.2 Mcduffie % (Auto) 5.8 Eos % (Auto) 3.9 Baso % (Auto) 0.6 Lymph # (Auto) 2.8 Mcduffie # (Auto) 0.5 Eos # (Auto) 0.4 Baso # (Auto) 0.1 Abs Immat Gran (auto) 0.05 H Absolute Neuts (auto) 5.2 Absolute Nucleated RBC 0.000 Nucleated RBC % (auto) 0.0 PT INR Sodium 137 Potassium 3.8 Chloride 107 Carbon Dioxide 21 L Anion Gap 13 BUN 28 H Creatinine 1.34 Estim Creat Clear Calc 61.5 Estimated GFR 52 POC Glucose Random Glucose 167 H Calcium 8.6 Magnesium Iron TIBC % Saturation Unsat Iron Binding Troponin I High Sens 21.4 Stool Occult Blood COVID-19 (SERINA) COVID-19 [employer] Com Blood Type Antibody Screen Crossmatch 08/01/21 08/01/21 08/01/21 20:16 20:16 20:16 WBC RBC Hgb Hct MCV MCH MCHC RDW Plt Count MPV Immature Gran % (Auto) Neut % (Auto) Lymph % (Auto) Mcduffie % (Auto) Eos % (Auto) Baso % (Auto) Lymph # (Auto) Mcduffie # (Auto) Eos # (Auto) Baso # (Auto) Abs Immat Gran (auto) Absolute Neuts (auto) Absolute Nucleated RBC Nucleated RBC % (auto) PT INR Sodium Potassium Chloride Carbon Dioxide Anion Gap BUN Creatinine Estim Creat Clear Calc Estimated GFR POC Glucose Random Glucose Calcium Magnesium Iron TIBC % Saturation Unsat Iron Binding Troponin I High Sens 23.1 Stool Occult Blood POSITIVE COVID-19 (SERINA) Negative COVID-19 [employer] See Note Blood Type Antibody Screen Crossmatch 08/01/21 08/02/21 08/02/21 23:16 05:47 05:47 WBC 6.8 RBC 2.61 L Hgb 7.4 L Hct 22.2 L MCV 85.1 MCH 28.4 MCHC 33.3 RDW 14.8 Plt Count 148 L MPV 11.3 Immature Gran % (Auto) 0.1 Neut % (Auto) 44.7 L Lymph % (Auto) 40.8 H Mcduffie % (Auto) 7.5 Eos % (Auto) 6.5 H Baso % (Auto) 0.4 Lymph # (Auto) 2.8 Mcduffie # (Auto) 0.5 Eos # (Auto) 0.4 Baso # (Auto) 0.0 Abs Immat Gran (auto) 0.01 Absolute Neuts (auto) 3.0 Absolute Nucleated RBC 0.000 Nucleated RBC % (auto) 0.0 PT INR Sodium 139 Potassium 3.8 Chloride 109 H Carbon Dioxide 24 Anion Gap 10 L BUN 26 H Creatinine 1.15 Estim Creat Clear Calc 71.7 Estimated GFR > 60 POC Glucose Random Glucose 123 H Calcium 8.5 Magnesium Iron 41 L TIBC 330 % Saturation 12 L Unsat Iron Binding 289 Troponin I High Sens Stool Occult Blood COVID-19 (SERINA) [employer] Blood Type Antibody Screen Crossmatch 08/02/21 08/02/21 08/02/21 05:47 07:14 09:13 WBC RBC Hgb Hct MCV MCH MCHC RDW Plt Count MPV Immature Gran % (Auto) Neut % (Auto) Lymph % (Auto) Mcduffie % (Auto) Eos % (Auto) Baso % (Auto) Lymph # (Auto) Mcduffie # (Auto) Eos # (Auto) Baso # (Auto) Abs Immat Gran (auto) Absolute Neuts (auto) Absolute Nucleated RBC Nucleated RBC % (auto) PT 12.2 INR 1.1 Sodium Potassium Chloride Carbon Dioxide Anion Gap BUN Creatinine Estim Creat Clear Calc Estimated GFR POC Glucose 120 H Random Glucose Calcium Magnesium 2.2 Iron TIBC % Saturation Unsat Iron Binding Troponin I High Sens Stool Occult Blood COVID-19 (SERINA) [employer] Blood Type Antibody Screen Crossmatch 08/02/21 09:13 WBC RBC Hgb Hct MCV MCH MCHC RDW Plt Count MPV Immature Gran % (Auto) Neut % (Auto) Lymph % (Auto) Mcduffie % (Auto) Eos % (Auto) Baso % (Auto) Lymph # (Auto) Mcduffie # (Auto) Eos # (Auto) Baso # (Auto) Abs Immat Gran (auto) Absolute Neuts (auto) Absolute Nucleated RBC Nucleated RBC % (auto) PT INR Sodium Potassium Chloride Carbon Dioxide Anion Gap BUN Creatinine Estim Creat Clear Calc Estimated GFR POC Glucose Random Glucose Calcium Magnesium Iron TIBC % Saturation Unsat Iron Binding Troponin I High Sens Stool Occult Blood COVID-19 (SERINA) COVID-19 Clin Com Blood Type O Positive Antibody Screen NEGATIVE Crossmatch See Detail Airway Mallampati Class: III TM Dist: >3cm Neck ROM: Full Loose/Missing/Broken Teeth: No Heart: RRR Lungs: CTA Assessment and Plan Assessment Anesthesia Assessment: Anesthesia Plan Discussed Final Anesthetic Review History of Problems with Anesthesia: No NPO: Yes ASA Class: III and Emergency Final Preanesthetic Review: Meds/Allgs Chart Reviewed, Consent Obtained/Reviewed and Anes Risks/Benef Reviewed Patient Risk: Intermediate Procedure Risk: Intermediate Anesthetic Plan Anesthetic Plan: GA Disposition: Standard PACU
--- NOTE | 2021-08-02 11:11 | PC.NURSE ---
spoke w RN over in short stay, report given, pt will be transported shortly.
--- NOTE | 2021-08-02 11:19 | PC.NURSE ---
patient a&ox3, pt has no c/o adverse reaction to blood product, environmental monitoring specialist sinus lazaro, vitals stable, short stay has arrived to take patient for endoscopy.
[2021-08-02 11:47] LABS: Glucose, Whole Blood 126 mg/dL (60-115)
--- NOTE | 2021-08-02 12:29 | PM.OP ---
Brief Operative Note Date of Service: 08/02/21 Pre-op diagnosis: gi bleed Post-op diagnosis: same Procedure: egd Surgeon: Yaya Torres Anesthesia: GETA Was an Research Environmental Scientist used for this Procedure?: No Estimated blood loss (mL): 5 Pathology: other (antral biopsies) Condition: stable Disposition: PACU
--- NOTE | 2021-08-02 12:30 | PM.EVENT ---
Event Note Date of Service: 08/02/21 Event Note: EGD gastric avm with oozing, cauterized antral biopsies obtained duodenitis in bulb rec hold asa, plavix ppi follow hct advance diet
[2021-08-02 13:24] LABS: Glucose, Whole Blood 151 mg/dL (60-115)
--- NOTE | 2021-08-02 13:44 | PC.NURSE ---
pt has returned from endoscopy, provider changed order for patient to eat, will now give patient the insulin.
--- NOTE | 2021-08-02 13:52 | OP_ITS ---
SURGEON: Yaya Torres MD INDICATIONS: Upper GI bleeding. PREOPERATIVE DIAGNOSIS: POSTOPERATIVE DIAGNOSIS: PROCEDURE PERFORMED: Upper endoscopy with biopsy and control of hemorrhage. ESTIMATED BLOOD LOSS: COMPLICATIONS: ANESTHESIA: ASSISTANTS: SPECIMENS: MEDICATIONS: General anesthesia. DESCRIPTION OF PROCEDURE: History and physical were performed. The risks and benefits of the procedure were explained to the patient. Informed consent was obtained. The patient was placed in the left lateral decubitus position. The Olympus video gastroscope was introduced into the esophagus, stomach, and duodenum. Examination was performed. The scope was removed. He tolerated the procedure well and was taken to recovery area in stable condition. FINDINGS: Esophagus: The esophagus was normal. The EG junction was slightly irregular. There was no esophagitis. Stomach: The stomach showed some streaks of old blood in the fundus with no active bleeding initially. Biopsies were obtained from the antrum. Duodenum: There was duodenitis involving the bulb with no active bleeding. The stomach was carefully examined and a single 3 mm AVM was identified in the proximal stomach on the anterior wall.. Irrigation of this lesion produced active bleeding. Hemostasis was achieved with use of the Gold Probe and cauterization of the AVM. There was no bleeding at the termination of the procedure. IMPRESSION: 1. 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 2. Duodenitis. RECOMMENDATION: 1. Continue to hold anti-platelet medications for 1 week. 2. Continue proton pump inhibitor. 3. Follow hematocrit. MD BRIAN Hanna/JEANETTE / [id number] MTDD
--- NOTE | 2021-08-02 14:16 | MHC.CM.PN ---
PT REPORTS HE LIVES AT HOME WITH HIS AND IS INDEPENDENT WITH CARE PT DENIES USE OF DME OR HOME SERVICES HE REPORTS HE DID RECENTLY HAVE [facility] BUT THEY DISCHARGED HIM, HE DOES NOT FEEL HE WOULD NEED THEM AGAIN. PT IS A , HOWEVER IS NOT SERVICE CONNECTED PT CONFIRMS HIS PCP IS CATIA CLARKE AND HE HAS A HCP ON FILE PT REPORTS HE IS VACCINATED AGAINST COVID-19 AND HAS RECEIVED A BOOSTER (PFIZER X 3) IMM DELIVERED, COPY SENT TO [facility] CURRENT DC PLAN IS HOME WITH NO SERVICES PT WILL ARRANGE TRANSPORT
[2021-08-02] MEDS: Insulin Lispro 100 UNIT/ML 3 ML VIAL SUBCUT ×3 (14:18→20:37)
[2021-08-02] MEDS: Pregabalin 150 MG CAPSULE PO ×2 (14:19→20:36)
--- NOTE | 2021-08-02 14:29 | PC.NURSE ---
blood has completed, patient tolerated transfusion well, vss, quality assurance monitor final sinus lazaro, no c/o pain or discomfort, ate lunch as ordered, pt medicated per order, will continue to monitor.
--- NOTE | 2021-08-02 17:04 | PC.NURSE ---
medicated per provider order
--- NOTE | 2021-08-02 17:20 | PC.NURSE ---
RN-RN report given, pt to transfer to [phone].
--- NOTE | 2021-08-02 17:22 | PC.NURSE ---
insulin held due to late dinners in ED overflow.
--- NOTE | 2021-08-02 17:33 | PC.NURSE ---
pt's spouse brought food for pt, POC [id number].
[2021-08-02 17:36] LABS: Glucose, Whole Blood 277 mg/dL (60-115)
--- NOTE | 2021-08-02 17:38 | PC.NURSE ---
medicated per provider order
[2021-08-02 19:26] LABS: Glucose, Whole Blood 301 mg/dL (60-115)
[2021-08-02] MEDS: Famotidine/PF 20 MG/2 ML VIAL IVPUSH (19:42)
[2021-08-02] MEDS: HYDROmorphone HCl 1 MG/ML SYRINGE 0.6 MG IVPUSH ×2 (19:42→23:33)
[2021-08-02] MEDS: Atorvastatin Calcium 80 MG TABLET PO (20:35)
[2021-08-02] MEDS: Tamsulosin HCL 0.4 MG CAPSULE PO (20:35)
[2021-08-02] MEDS: Insulin Glargine,Hum.rec.anlog 100 UNIT/ML 10 ML VIAL 20 UNIT SUBCUT (20:36)
--- NOTE | 2021-08-02 21:29 | PC.NURSE ---
pt reported burning sensation to epigastric area . He stated that started after upper endoscopy today and got worse tonight. The pain is 7/10. DR Ramos was notified, pt received Pepcid IV, Dilauded IV, EKG, TRoponin .Pt still c/o burning sensation, aware
[2021-08-02] MEDS: cephALEXin 500 MG CAPSULE PO (22:43)
--- NOTE | 2021-08-03 | ECG_ITS ---
Test Reason : CP Blood Pressure : / mmHG Vent. Rate : 072 BPM Atrial Rate : 072 BPM P-R Int : 164 ms QRS Dur : 092 ms QT Int : 382 ms P-R-T Axes : 078 034 059 degrees QTc Int : 418 ms Sinus rhythm with marked sinus arrhythmia Nonspecific ST abnormality Abnormal ECG When compared with ECG of 02-AUG-2021 21:12, Premature ventricular complexes are no longer Present Referred By: Hussain Degroot Electronically Signed By:Bert De Los Santos
[2021-08-03 00:44] LABS: Troponin-I High Sensitivity 68.9 ng/L (<3.5-35.0)
[2021-08-03 03:32] VITALS: BP 141/74; PULSE 89; RESP 14; TEMP 37.3; O2SAT 97
[2021-08-03] MEDS: HYDROmorphone HCl 1 MG/ML SYRINGE 0.6 MG IVPUSH (03:32)
[2021-08-03] MEDS: Pantoprazole Sodium 40 MG/10 ML VIAL IVPUSH ×2 (06:09→16:38)
[2021-08-03 06:54] LABS: Hemoglobin 8.2 g/dl (14.0-18.0); Mean Corpuscular HGB Conc 32.8 g/dl (31.0-36.0); Mean Corpuscular Hemoglobin 28.7 pg (27.0-33.0); Mean Corpuscular Volume 87.4 fL (80.0-98.0); Mean Platelet Volume 11.8 fL (9.4-12.4); Platelet Count 159 X10*3/uL (160-400); Red Blood Count 2.86 X10*6/uL (4.60-5.80); Red Cell Distribution Width 14.8 % (11.0-16.0); White Blood Count 9.4 X10*3/uL (4.8-10.8)
[2021-08-03 07:12] LABS: Anion Gap 10 (12-20); Blood Urea Nitrogen 24 mg/dL (9-16); Calcium 8.9 mg/dL (8.4-10.2); Carbon Dioxide 23 mmol/L (22-29); Chloride 109 mmol/L (96-108); Creatinine Clr Calc Pharmacy 59.4; Estimated Glomerular Filt Rate 48; Glucose Fasting 230 mg/dL (60-99); Potassium 4.3 mmol/L (3.3-5.1); Sodium 138 mmol/L (135-145)
[2021-08-03 07:25] LABS: Glucose, Whole Blood 205 mg/dL (60-115)
[2021-08-03 07:43] VITALS: BP 126/53; PULSE 81; RESP 20; TEMP 36.9; O2SAT 98
[2021-08-03 08:02] LABS: Troponin-I High Sensitivity 567.9 ng/L (<3.5-35.0)
[2021-08-03] MEDS: Pregabalin 150 MG CAPSULE PO ×3 (08:37→20:50)
[2021-08-03] MEDS: cephALEXin 500 MG CAPSULE PO ×3 (08:37→20:51)
[2021-08-03] MEDS: Insulin Lispro 100 UNIT/ML 3 ML VIAL SUBCUT ×4 (08:37→20:52)
[2021-08-03] MEDS: 0.9 % Sodium Chloride Flush 3 ML SYRINGE IVFLUSH ×2 (08:38→15:13)
--- NOTE | 2021-08-03 09:32 | P.PNIM_ITS ---
Subjective Subjective Date of Service: 08/03/21 Interval History: cc: melena interval history: last melena last night, has been having epigastric burning, constant, non radiating, does not feel like previous cardiac pain. Cardiovascular Cardiovascular: Reports no additional cardiovascular complaints Respiratory Respiratory: Reports no additional respiratory complaints Physical Exam Vital Signs: Vital Signs: Last Vital Signs Temp 98.4 F 08/03/21 07:43 Pulse 81 08/03/21 07:43 Resp 20 08/03/21 07:43 BP 126/53 L 08/03/21 07:43 Pulse Ox 98 08/03/21 07:43 BMI result Body Mass Index 37.0 General: AO X 3, no acute distress Resp: CTA bilateral, no accessory muscles used CVS: S1,S2,RRR, 1-2+ edema le bilateral GI: soft, non tender, non distended Neuro: motor grossly intact, alert Psych: appropriate affect, appropriate insight Objective Data Active Medications Acetaminophen (Acetaminophen 325 Mg Tablet) 650 mg PO Q6H PRN PRN Reason: Pain, Mild (Pain Scale 1-3) Albuterol Sulfate (Albuterol Sulfate 90 Mcg 8 Gm Inhaler) 2 puff INHALE Q6H PRN PRN Reason: wheezing Atorvastatin Calcium (Atorvastatin Calcium 80 Mg Tablet) 80 mg PO BEDTIME [facility] Last Admin: 08/02/21 20:35 Dose: 80 mg Documented by: TATYANA Cephalexin HCl (Cephalexin 500 Mg Capsule) 500 mg PO TID [facility] Last Admin: 08/03/21 08:37 Dose: 500 mg Documented by: TOMAS Dextrose (Dextrose 50 % 25 Gm/50 Ml Syringe) 25 gm IVPUSH Q15M PRN; Protocol PRN Reason: per Hypoglycemia Standing Ord. Glucose (Glucose Gel 15 Gm Gel..Gram.) 15 gm PO Q15M PRN; Protocol PRN Reason: per Hypoglycemia Standing Ord. Insulin Glargine (Insulin Glargine,Hum.Rec.Anlog 100 Unit/Ml 10 Ml Vial) 20 unit SUBCUT BEDTIME [facility] Last Admin: 08/02/21 20:36 Dose: 20 unit Documented by: TATYANA Insulin Human Lispro (Insulin Lispro 100 Unit/Ml 3 Ml Vial) 0 unit SUBCUT QIDACHS [facility]; Protocol Last Admin: 08/03/21 08:37 Dose: 4 unit Documented by: TOMAS Loratadine (Loratadine 10 Mg Tablet) 10 mg PO DAILY PRN PRN Reason: allergy symptoms Pantoprazole Sodium (Pantoprazole Sodium 40 Mg/10 Ml Vial) 40 mg IVPUSH BID@0630,6410 [facility] Last Admin: 08/03/21 06:09 Dose: 40 mg Documented by: LIZBETH Pharmacy Consult (Consult Rx Perform Med Rec) 1 each MISCELLANE ONCE PRN PRN Reason: Consult order Pregabalin (Pregabalin 150 Mg Capsule) 150 mg PO TID [facility] Last Admin: 08/03/21 08:37 Dose: 150 mg Documented by: TOMAS Senna (Sennosides 8.6 Mg Tablet) 17.2 mg PO BEDTIME PRN PRN Reason: Constipation Sodium Chloride (0.9 % Sodium Chloride Flush 3 Ml Syringe) 3 ml IVFLUSH QSHIFT [facility] Last Admin: 08/03/21 08:38 Dose: 3 ml Documented by: TOMAS Sucralfate (Sucralfate Oral Suspension 1 Gm/10 Ml Oral.Susp) 1 gm PO QIDACHS [facility] Tamsulosin HCl (Tamsulosin Hcl 0.4 Mg Capsule) 0.4 mg PO BEDTIME [facility] Last Admin: 08/02/21 20:35 Dose: 0.4 mg Documented by: TATYANA Labs CBC & Chem 7: 08/03/21 06:05 08/03/21 06:05 Labs: Laboratory Results - last 24 hr 08/02/21 08/02/21 08/02/21 09:13 09:13 11:43 MCV MCH MCHC RDW Plt Count MPV Absolute Nucleated RBC Nucleated RBC % (auto) PT 12.2 INR 1.1 Anion Gap Estim Creat Clear Calc Estimated GFR POC Glucose 126 H Fasting Glucose Calcium Blood Type O Positive Antibody Screen NEGATIVE Crossmatch See Detail 08/02/21 08/02/21 08/02/21 13:21 17:32 19:13 MCV MCH MCHC RDW Plt Count MPV Absolute Nucleated RBC Nucleated RBC % (auto) PT INR Anion Gap Estim Creat Clear Calc Estimated GFR POC Glucose 151 H 277 H 301 H Fasting Glucose Calcium Blood Type Antibody Screen Crossmatch 08/03/21 08/03/21 08/03/21 06:05 06:05 07:16 MCV 87.4 MCH 28.7 MCHC 32.8 RDW 14.8 Plt Count 159 L MPV 11.8 Absolute Nucleated RBC 0.000 Nucleated RBC % (auto) 0.0 PT INR Anion Gap 10 L Estim Creat Clear Calc 59.4 Estimated GFR 48 POC Glucose 205 H Fasting Glucose 230 H Calcium 8.9 Blood Type Antibody Screen Crossmatch Assessment and Plan (1) GI bleed: Status: Acute Plan 70M presented with melena acute blood loss anemia due to upper gi bleed hgb was 7.4 on 08/02/21, transfused 1 unit prbc on 08/02/21, hgb improved appropriately to 8.2, continue to monitor protonix IV s/p EGD 08/02/21 - actively bleeding 3mm fastric AVM was cauterized, also showed duodenitis, biopsies done holding DAPL diet advanced NSTEMI known CAD, with NSTEMI in 01/2021 - diffuse RCA stenosis not amenable to PCI, calcified proximal LCx stenosis (consideration of PCI if symptoms) and ostial diagonal stenosis.? He had an echo that showed EF 31% with regional variation, basal inferior wall akinetic, mid anteroseptum and apical septum are akinetic/dyskinetic. patient had epigastric pain overnight, troponin was 68.9, EKG unremarkable, repeat troponin this AM 567.9 patient states his pain does not feel similar to previous cardiac pain, it is still present A/C and antiplatelet contraindicated due to active bleed started lopressor, continue statin cardio eval, echo ischemic cardiomyopathy - chronic systolic chf started lopressor losartan on hold for bleed, concern for hypotension. PVD with history of infected graft holding DAPL continue statin continue lifelong suppressive therapy with cephalexin CKD II creatinine 1.44, around baseline, will monitor DM insulin, monitor poc htn hold losartan for now, at risk for hypotension while bleeding dvt prophylaxis - mechanical due to bleeding full code reason for continued hospitalization: actively bleeding, iv protonix, new nstemi Quality Stroke Does the patient have a stroke diagnosis?: No VTE Prior VTE?: No VTE Risk Level:: Medical - moderate - high VTE Device Contraindication: N/A - Device Ordered VTE Drug Contraindication: Treatment Not Indicated
--- NOTE | 2021-08-03 11:00 | CA_ITS ---
Transthoracic Echocardiogram Patient (Last, First, Middle): Caesar Flower J Gender: Male Date of : 1950 Age: 70 Procedure Date: 08/03/2021 Procedure Type: Transthoracic Echocardiogram Location: [facility] [place] Height: 177.8 cm Weight: 116.58 kg BSA: 2.32 m2 Heart Rate: bpm BP: 126 / 53 mmHg Parachute Rigger: Referring MD: Hussain Degroot MD Symptoms: nstemi Study Quality: Fair/Contrast Conclusions: - Limited echo. - No regional wall motion abnormalities. Findings Procedure Information Contrast agent, definity, is being given per protocol without apparent complications. Left Ventricle Normal left ventricular size, thickness, systolic function, and wall motion. The visually estimated ejection fraction is between 55-60%. Diastolic function is indeterminate on the basis of available data. Right Ventricle Normal right ventricular cavity size and systolic function. Measurements 2D Linear Measurements IVSd: 0.98 0.6-0.9/0.6-1.0 cm LVIDd: 4.97 3.9-5.3/4.2-5.9 cm LVIDd Index: 2.14 2.4-3.2/2.2-3.1 cm/m2 LVIDs: 3.52 2.0-3.6 cm LVPWd: 1.00 0.7-1.1 cm LV Mass: 221.31 67-162/88-224 g LV Mass Index: 95.39 43-95/49-115 g/m2 Updated in Other Vendor System with Status of Final Bert De Los Santos MD electronically signed on 08/04/2021 11:13:17 AM with status of Final
[2021-08-03 11:22] LABS: Glucose, Whole Blood 171 mg/dL (60-115)
[2021-08-03 12:00] VITALS: BP 123/54; PULSE 73; RESP 20; TEMP 36.9; O2SAT 96
--- NOTE | 2021-08-03 12:10 | P.CONCA_ITS ---
History of Present Illness History of Present Illness Date of Service: 08/03/21 Requesting physician: Hussain Degroot Chief complaint: GI Bleed, +troponin Narrative: 70-year-old gentleman complex history including ischemic cardiomyopathy, hypertension, diabetes, peripheral vascular disease and hyperlipidemia who is presenting for black stools and some dizziness. He was noted to be anemic. Underwent endoscopy which has shown gastric AVM which was cauterized. He was on aspirin Plavix because of previous coronary disease and NSTEMI. He did not have any intervention the past because NSTEMI was in the setting of high blood pressure any had diffuse RCA disease as well as ostial diagonal as well as circumflex disease. His coronary disease was felt to be stable and no intervention was done in the past. he is now presenting with GI bleed and has been is taken off the aspirin and Plavix. [facility] Past Medical History Medical History (Updated 08/03/21 @ 12:13 by Bert De Los Santos MD) BPH (benign prostatic hyperplasia) Chronic anemia Cough Diabetic retinopathy Goiter HCV (hepatitis C virus) History of non-ST elevation myocardial infarction (NSTEMI) HLD (hyperlipidemia) HTN (hypertension) Ischemic cardiomyopathy Lower back pain Neuropathy NSTEMI (non-ST elevated myocardial infarction) Post-nasal drainage PVD (peripheral vascular disease) Spondylosis of lumbar spine T2DM (type 2 diabetes mellitus) T2DM (type 2 diabetes mellitus) Thyroid nodule Type 2 diabetes mellitus with diabetic neuropathy Vitamin D deficiency Family History Family History Father Diabetes Mother Diabetes Leukemia Skin cancer Alzheimers disease Dementia Surgical History Surgical History H/O [id number] bypass Hx of basal cell carcinoma excision S/P aorto-bifemoral bypass surgery Social History Social History Household Members: Spouse Housing: House Do you presently have visiting nurse or other home services: No Alcohol intake: never Patient Tobacco Use Status: Former Tobacco user Tobacco use type: Cigarette Cigarette Packs Per Day: 3 Years Smoked: 30 e-Cigarette/Vaping Use: Never Used Second Hand Smoke Exposure: No Advance Directives Date on File: 08/02/21 service: Yes Current occupational status: retired Meds Allergies Allergy/AdvReac Type Severity Reaction Status Date / Time No Known Allergies Allergy Unknown UNKNOWN Verified 08/01/21 17:09 Active Medications: Current Medications Acetaminophen (Acetaminophen 325 Mg Tablet) 650 mg PO Q6H PRN PRN Reason: Pain, Mild (Pain Scale 1-3) Albuterol Sulfate (Albuterol Sulfate 90 Mcg 8 Gm Inhaler) 2 puff INHALE Q6H PRN PRN Reason: wheezing Atorvastatin Calcium (Atorvastatin Calcium 80 Mg Tablet) 80 mg PO BEDTIME [facility] Last Admin: 08/02/21 20:35 Dose: 80 mg Documented by: Cephalexin HCl (Cephalexin 500 Mg Capsule) 500 mg PO TID [facility] Last Admin: 08/03/21 08:37 Dose: 500 mg Documented by: Dextrose (Dextrose 50 % 25 Gm/50 Ml Syringe) 25 gm IVPUSH Q15M PRN; Protocol PRN Reason: per Hypoglycemia Standing Ord. Glucose (Glucose Gel 15 Gm Gel..Gram.) 15 gm PO Q15M PRN; Protocol PRN Reason: per Hypoglycemia Standing Ord. Insulin Glargine (Insulin Glargine,Hum.Rec.Anlog 100 Unit/Ml 10 Ml Vial) 20 unit SUBCUT BEDTIME [facility] Last Admin: 08/02/21 20:36 Dose: 20 unit Documented by: Insulin Human Lispro (Insulin Lispro 100 Unit/Ml 3 Ml Vial) 0 unit SUBCUT QIDACHS [facility]; Protocol Last Admin: 08/03/21 08:37 Dose: 4 unit Documented by: Loratadine (Loratadine 10 Mg Tablet) 10 mg PO DAILY PRN PRN Reason: allergy symptoms Metoprolol Tartrate (Metoprolol Tartrate 25 Mg Tablet) 25 mg PO BID [facility]; Protocol Pantoprazole Sodium (Pantoprazole Sodium 40 Mg/10 Ml Vial) 40 mg IVPUSH BID@0630,1630 [facility] Last Admin: 08/03/21 06:09 Dose: 40 mg Documented by: Pharmacy Consult (Consult Rx Perform Med Rec) 1 each MISCELLANE ONCE PRN PRN Reason: Consult order Pregabalin (Pregabalin 150 Mg Capsule) 150 mg PO TID [facility] Last Admin: 08/03/21 08:37 Dose: 150 mg Documented by: Senna (Sennosides 8.6 Mg Tablet) 17.2 mg PO BEDTIME PRN PRN Reason: Constipation Sodium Chloride (0.9 % Sodium Chloride Flush 3 Ml Syringe) 3 ml IVFLUSH QSHIFT [facility] Last Admin: 08/03/21 08:38 Dose: 3 ml Documented by: Sucralfate (Sucralfate Oral Suspension 1 Gm/10 Ml Oral.Susp) 1 gm PO QIDACHS [facility] Tamsulosin HCl (Tamsulosin Hcl 0.4 Mg Capsule) 0.4 mg PO BEDTIME [facility] Last Admin: 08/02/21 20:35 Dose: 0.4 mg Documented by: Home Medications Medication Instructions Recorded Confirmed Last Taken Type aspirin 81 mg tablet,delayed 81 mg PO DAILY 04/19/20 08/01/21 08/01/21 History release (Adult Aspirin Regimen) ascorbic acid (vitamin C) 500 mg 500 mg PO DAILY 02/06/21 08/01/21 08/01/21 History tablet (Vitamin C) cholecalciferol (vitamin D3) 125 125 mcg PO DAILY 02/06/21 08/01/21 08/01/21 History mcg (5,000 unit) tablet (Vitamin D3) lactobacillus combination no.4 3 3,000 mmu cells PO DAILY 02/06/21 08/01/21 08/01/21 History billion cell capsule (Probiotic) blood sugar diagnostic (OneTouch #10 ea 02/21/21 06/20/21 Unknown History Verio test strips) blood-glucose meter (OneTouch #1 ea 02/21/21 06/20/21 Unknown History Verio Reflect Meter) lancets 33 gauge (OneTouch Delica #100 ea 02/21/21 06/20/21 Unknown History Plus Lancet) albuterol sulfate 90 mcg/actuation 2 puff PO Q6H PRN 08/01/21 08/01/21 Unknown History aerosol inhaler rosuvastatin 20 mg tablet 20 mg PO BEDTIME 08/01/21 08/01/21 07/31/21 History tamsulosin 0.4 mg capsule 1 cap PO BEDTIME 08/01/21 08/01/21 07/31/21 History Physical Exam Vital Signs: Vital Signs: Last Vital Signs Temp 98.4 F 08/03/21 07:43 Pulse 81 08/03/21 07:43 Resp 20 08/03/21 07:43 BP 126/53 L 08/03/21 07:43 Pulse Ox 98 08/03/21 07:43 BMI result Body Mass Index 37.0 GENERAL APPEARANCE: in no acute distress, pleasant. NECK: no carotid bruit, no jugular venous distention. SKIN: no suspicious lesions, warm and dry. HEART: no murmurs, regular rate and rhythm. LUNGS: clear to auscultation bilaterally. ABDOMEN: soft, nontender. EXTREMITIES: no edema. PERIPHERAL PULSES: equal. NEUROLOGIC: No gross deficits, AAO X 3 Objective Labs and Meds Result diagrams: 08/03/21 06:05 08/03/21 06:05 Lab results: Laboratory Results - last 24 hr 08/02/21 08/02/21 08/02/21 09:13 13:21 17:32 WBC RBC Hgb Hct MCV MCH MCHC RDW Plt Count MPV Absolute Nucleated RBC Nucleated RBC % (auto) Sodium Potassium Chloride Carbon Dioxide Anion Gap BUN Creatinine Estim Creat Clear Calc Estimated GFR POC Glucose 151 H 277 H Fasting Glucose Calcium Troponin I High Sens Crossmatch See Detail 08/02/21 08/02/21 08/03/21 19:13 21:13 00:11 WBC RBC Hgb Hct MCV MCH MCHC RDW Plt Count MPV Absolute Nucleated RBC Nucleated RBC % (auto) Sodium Potassium Chloride Carbon Dioxide Anion Gap BUN Creatinine Estim Creat Clear Calc Estimated GFR POC Glucose 301 H Fasting Glucose Calcium Troponin I High Sens 25.0 68.9 H D Crossmatch 08/03/21 08/03/21 08/03/21 06:05 06:05 06:05 WBC 9.4 RBC 2.86 L Hgb 8.2 L Hct 25.0 L MCV 87.4 MCH 28.7 MCHC 32.8 RDW 14.8 Plt Count 159 L MPV 11.8 Absolute Nucleated RBC 0.000 Nucleated RBC % (auto) 0.0 Sodium 138 Potassium 4.3 Chloride 109 H Carbon Dioxide 23 Anion Gap 10 L BUN 24 H Creatinine 1.44 H Estim Creat Clear Calc 59.4 Estimated GFR 48 POC Glucose Fasting Glucose 230 H Calcium 8.9 Troponin I High Sens 567.9 H* D Crossmatch 08/03/21 08/03/21 07:16 11:10 WBC RBC Hgb Hct MCV MCH MCHC RDW Plt Count MPV Absolute Nucleated RBC Nucleated RBC % (auto) Sodium Potassium Chloride Carbon Dioxide Anion Gap BUN Creatinine Estim Creat Clear Calc Estimated GFR POC Glucose 205 H 171 H Fasting Glucose Calcium Troponin I High Sens Crossmatch Assessment and Plan (1) GI bleed: Status: Acute (2) Elevated troponin: Status: Acute Plan pleasant 70 year gentleman who has past history significant for peripheral vascular disease status post aortobifem surgery, previous NSTEMI for which he underwent cardiac catheterization showing circumflex and ostial diagonal disease along with diffuse right disease. This was medically managed. He has cardiomyopathy based on echocardiogram from January 2021 showing an EF of 43% with inferior, inferolateral and basal anteroseptal wall motion abnormalities. He was medically treated with aspirin Plavix in the past. He has no stents done in the past. Currently he is off aspirin Plavix appropriately. Please discuss with GI that when can he resume his antiplatelet therapy. I would probably choose 1 of them whichever is least problematic to his GI tract. Would not give him dual antiplatelet therapy going forward. NSTEMI is due to type 2 injury in the setting of blood loss and diffuse underlying coronary disease. He does not need to be treated as acute coronary syndrome. Thank you for allowing me to participate in the care of your patient. Please feel free to contact me if you have any questions. Procedures Date of Service Date of Service: 08/03/21
[2021-08-03] MEDS: Sucralfate Oral Suspension 1 GM/10 ML ORAL.SUSP PO ×3 (12:38→20:50)
[2021-08-03 13:04] LABS: Troponin-I High Sensitivity 1594.5 ng/L (<3.5-35.0)
[2021-08-03 15:03] VITALS: BP 132/65; PULSE 69; RESP 21; TEMP 37.2; O2SAT 97
[2021-08-03 16:03] LABS: Glucose, Whole Blood 162 mg/dL (60-115)
[2021-08-03 19:02] VITALS: BP 141/56; PULSE 66; RESP 20; TEMP 36.8; O2SAT 96
[2021-08-03 20:04] LABS: Glucose, Whole Blood 198 mg/dL (60-115)
[2021-08-03] MEDS: Atorvastatin Calcium 80 MG TABLET PO (20:50)
[2021-08-03] MEDS: Tamsulosin HCL 0.4 MG CAPSULE PO (20:51)
[2021-08-03] MEDS: Metoprolol Tartrate 25 MG TABLET PO (20:51)
[2021-08-03] MEDS: Insulin Glargine,Hum.rec.anlog 100 UNIT/ML 10 ML VIAL 20 UNIT SUBCUT (20:51)
[2021-08-04] VITALS (8 sets, daily range): BP systolic 97–182; BP diastolic 42–77; PULSE 53–78; RESP 17–20; TEMP 35.8–37.3; O2SAT 95–98
[2021-08-04] MEDS: 0.9 % Sodium Chloride Flush 3 ML SYRINGE IVFLUSH ×4 (00:02→21:11)
[2021-08-04 06:26] LABS: Hematocrit 23.1 % (42.0-52.0); Hemoglobin 7.9 g/dl (14.0-18.0); Mean Corpuscular HGB Conc 34.2 g/dl (31.0-36.0); Mean Corpuscular Hemoglobin 29.4 pg (27.0-33.0); Mean Corpuscular Volume 85.9 fL (80.0-98.0); Mean Platelet Volume 11.3 fL (9.4-12.4); Platelet Count 129 X10*3/uL (160-400); Red Blood Count 2.69 X10*6/uL (4.60-5.80); Red Cell Distribution Width 15.2 % (11.0-16.0); White Blood Count 7.3 X10*3/uL (4.8-10.8)
[2021-08-04] MEDS: Pantoprazole Sodium 40 MG/10 ML VIAL IVPUSH ×2 (06:31→16:48)
[2021-08-04 06:45] LABS: Anion Gap 8 (12-20); Blood Urea Nitrogen 23 mg/dL (9-16); Carbon Dioxide 25 mmol/L (22-29); Chloride 111 mmol/L (96-108); Creatinine Clr Calc Pharmacy 67.3; Estimated Glomerular Filt Rate 56; Glucose Fasting 178 mg/dL (60-99); Potassium 4.3 mmol/L (3.3-5.1); Sodium 140 mmol/L (135-145)
[2021-08-04 07:35] LABS: Glucose, Whole Blood 169 mg/dL (60-115)
[2021-08-04] MEDS: Insulin Lispro 100 UNIT/ML 3 ML VIAL SUBCUT ×4 (08:41→21:10)
[2021-08-04] MEDS: Sucralfate Oral Suspension 1 GM/10 ML ORAL.SUSP PO ×4 (08:41→21:09)
[2021-08-04] MEDS: cephALEXin 500 MG CAPSULE PO ×3 (08:41→21:09)
[2021-08-04] MEDS: Metoprolol Tartrate 25 MG TABLET PO ×2 (08:41→21:09)
[2021-08-04] MEDS: Pregabalin 150 MG CAPSULE PO ×3 (08:41→21:09)
--- NOTE | 2021-08-04 09:52 | HO.PM.IMPN ---
Subjective Subjective Date of Service: 08/04/21 Interval History: cc: melena interval history: had bm, was dark, epigastric pain resolved Cardiovascular Cardiovascular: Reports no additional cardiovascular complaints Respiratory Respiratory: Reports no additional respiratory complaints Physical Exam Vital Signs: Vital Signs: Last Vital Signs Temp 99.2 F 08/04/21 08:03 Pulse 78 08/04/21 08:03 Resp 18 08/04/21 08:03 BP 182/77 H 08/04/21 08:03 Pulse Ox 97 08/04/21 08:03 BMI result Body Mass Index 37.0 General: AO X 3, no acute distress Resp: CTA bilateral, no accessory muscles used CVS: S1,S2,RRR GI: soft, non tender, non distended Neuro: motor grossly intact, alert Psych: appropriate affect, appropriate insight Objective Data Active Medications Acetaminophen (Acetaminophen 325 Mg Tablet) 650 mg PO Q6H PRN PRN Reason: Pain, Mild (Pain Scale 1-3) Albuterol Sulfate (Albuterol Sulfate 90 Mcg 8 Gm Inhaler) 2 puff INHALE Q6H PRN PRN Reason: wheezing Atorvastatin Calcium (Atorvastatin Calcium 80 Mg Tablet) 80 mg PO BEDTIME [facility] Last Admin: 08/03/21 20:50 Dose: 80 mg Documented by: TATYANA Cephalexin HCl (Cephalexin 500 Mg Capsule) 500 mg PO TID [facility] Last Admin: 08/04/21 08:41 Dose: 500 mg Documented by: MINA Dextrose (Dextrose 50 % 25 Gm/50 Ml Vial) 25 gm IVPUSH Q15M PRN; Protocol PRN Reason: per Hypoglycemia Standing Ord. Glucose (Glucose Gel 15 Gm Gel..Gram.) 15 gm PO Q15M PRN; Protocol PRN Reason: per Hypoglycemia Standing Ord. Insulin Glargine (Insulin Glargine,Hum.Rec.Anlog 100 Unit/Ml 10 Ml Vial) 20 unit SUBCUT BEDTIME [facility] Last Admin: 08/03/21 20:51 Dose: 20 unit Documented by: TATYANA Insulin Human Lispro (Insulin Lispro 100 Unit/Ml 3 Ml Vial) 0 unit SUBCUT QIDACHS [facility]; Protocol Last Admin: 08/04/21 08:41 Dose: 2 unit Documented by: MINA Loratadine (Loratadine 10 Mg Tablet) 10 mg PO DAILY PRN PRN Reason: allergy symptoms Metoprolol Tartrate (Metoprolol Tartrate 25 Mg Tablet) 25 mg PO BID [facility]; Protocol Last Admin: 08/04/21 08:41 Dose: 25 mg Documented by: MINA Pantoprazole Sodium (Pantoprazole Sodium 40 Mg/10 Ml Vial) 40 mg IVPUSH BID@0630,1630 [facility] Last Admin: 08/04/21 06:31 Dose: 40 mg Documented by: CASTILLO Pharmacy Consult (Consult Rx Perform Med Rec) 1 each MISCELLANE ONCE PRN PRN Reason: Consult order Pregabalin (Pregabalin 150 Mg Capsule) 150 mg PO TID [facility] Last Admin: 08/04/21 08:41 Dose: 150 mg Documented by: MINA Senna (Sennosides 8.6 Mg Tablet) 17.2 mg PO BEDTIME PRN PRN Reason: Constipation Sodium Chloride (0.9 % Sodium Chloride Flush 3 Ml Syringe) 3 ml IVFLUSH QSHIFT [facility] Last Admin: 08/04/21 08:41 Dose: 3 ml Documented by: MINA Sucralfate (Sucralfate Oral Suspension 1 Gm/10 Ml Oral.Susp) 1 gm PO QIDACHS [facility] Last Admin: 08/04/21 08:41 Dose: 1 gm Documented by: MINA Tamsulosin HCl (Tamsulosin Hcl 0.4 Mg Capsule) 0.4 mg PO BEDTIME [facility] Last Admin: 08/03/21 20:51 Dose: 0.4 mg Documented by: TATYANA Labs CBC & Chem 7: 08/04/21 06:07 08/04/21 06:07 Labs: Laboratory Results - last 24 hr 08/03/21 08/03/21 08/03/21 11:10 15:59 19:57 MCV MCH MCHC RDW Plt Count MPV Absolute Nucleated RBC Nucleated RBC % (auto) Anion Gap Estim Creat Clear Calc Estimated GFR POC Glucose 171 H 162 H 198 H Fasting Glucose Calcium 08/04/21 08/04/21 08/04/21 06:07 06:07 07:26 MCV 85.9 MCH 29.4 MCHC 34.2 RDW 15.2 Plt Count 129 L MPV 11.3 Absolute Nucleated RBC 0.000 Nucleated RBC % (auto) 0.0 Anion Gap 8 L Estim Creat Clear Calc 67.3 Estimated GFR 56 POC Glucose 169 H Fasting Glucose 178 H Calcium 9.0 Assessment and Plan (1) GI bleed: Status: Acute Plan 70M presented with melena acute blood loss anemia due to upper gi bleed hgb was 7.4 on 08/02/21, transfused 1 unit prbc on 08/02/21, hgb improved appropriately to 8.2, 7.9 today, cotinue to monitor continue protonix IV, will tamez to po tomorrow s/p EGD 08/02/21 - actively bleeding 3mm gastric AVM was cauterized, also showed duodenitis, biopsies done holding DAPL diet advanced plan to restart plavix on 08/06/21, will not restart asa NSTEMI known CAD, with NSTEMI in 01/2021 - diffuse RCA stenosis not amenable to PCI, calcified proximal LCx stenosis (consideration of PCI if symptoms) and ostial diagonal stenosis.? He had an echo that showed EF 31% with regional variation, basal inferior wall akinetic, mid anteroseptum and apical septum are akinetic/dyskinetic. type II from anemia/gi bleed started lopressor, continue statin cardio appreciated, will restart single antiplatelet - plavix when ok from GI standpoint (08/06/21) ischemic cardiomyopathy - chronic systolic chf lopressor restarted losartan and lasix PVD with history of infected graft holding DAPL - will restart plavix 08/06/21 continue statin continue lifelong suppressive therapy with cephalexin CKD II around baseline, will monitor DM insulin, monitor poc htn now elevated restarted losartan, continue metoprolol dvt prophylaxis - mechanical due to bleeding full code reason for continued hospitalization: conitnue to closely monitor bleeding/hgb- high risk to rebleed as had actively bleeding AVM and questionable continued melena Quality Stroke Does the patient have a stroke diagnosis?: No VTE Prior VTE?: No VTE Risk Level:: Medical - moderate - high VTE Device Contraindication: N/A - Device Ordered VTE Drug Contraindication: Treatment Not Indicated
[2021-08-04 11:25] LABS: Glucose, Whole Blood 178 mg/dL (60-115)
[2021-08-04] MEDS: Losartan Potassium 25 MG TABLET PO (12:14)
[2021-08-04 16:22] LABS: Glucose, Whole Blood 158 mg/dL (60-115)
[2021-08-04 20:28] LABS: Glucose, Whole Blood 180 mg/dL (60-115)
[2021-08-04] MEDS: Acetaminophen 325 MG TABLET 650 MG PO (21:08)
[2021-08-04] MEDS: Tamsulosin HCL 0.4 MG CAPSULE PO (21:09)
[2021-08-04] MEDS: Atorvastatin Calcium 80 MG TABLET PO (21:09)
[2021-08-04] MEDS: Insulin Glargine,Hum.rec.anlog 100 UNIT/ML 10 ML VIAL 20 UNIT SUBCUT (21:10)
[2021-08-04] MEDS: LORazepam 0.5 MG TABLET PO (21:32)
[2021-08-05 03:35] VITALS: BP 126/63; PULSE 58; RESP 18; TEMP 36.4; O2SAT 97
[2021-08-05] MEDS: Pantoprazole Sodium 40 MG/10 ML VIAL IVPUSH (06:02)
[2021-08-05 06:51] LABS: Hematocrit 25.2 % (42.0-52.0); Hemoglobin 8.4 g/dl (14.0-18.0); Mean Corpuscular HGB Conc 33.3 g/dl (31.0-36.0); Mean Corpuscular Hemoglobin 28.9 pg (27.0-33.0); Mean Corpuscular Volume 86.6 fL (80.0-98.0); Mean Platelet Volume 11.2 fL (9.4-12.4); Platelet Count 140 X10*3/uL (160-400); Red Blood Count 2.91 X10*6/uL (4.60-5.80); Red Cell Distribution Width 15.2 % (11.0-16.0); White Blood Count 6.7 X10*3/uL (4.8-10.8)
[2021-08-05 07:06] LABS: Anion Gap 11 (12-20); Blood Urea Nitrogen 23 mg/dL (9-16); Calcium 8.9 mg/dL (8.4-10.2); Carbon Dioxide 23 mmol/L (22-29); Chloride 110 mmol/L (96-108); Creatinine Clr Calc Pharmacy 63.8; Estimated Glomerular Filt Rate 52; Glucose Fasting 202 mg/dL (60-99); Potassium 4.1 mmol/L (3.3-5.1); Sodium 140 mmol/L (135-145)
[2021-08-05 07:18] VITALS: BP 100/50; PULSE 62; RESP 18; TEMP 36.6; O2SAT 98
[2021-08-05 08:04] LABS: Glucose, Whole Blood 169 mg/dL (60-115)
[2021-08-05] MEDS: Sucralfate Oral Suspension 1 GM/10 ML ORAL.SUSP PO (08:30)
[2021-08-05] MEDS: Insulin Lispro 100 UNIT/ML 3 ML VIAL SUBCUT (08:30)
[2021-08-05] MEDS: Losartan Potassium 25 MG TABLET PO (08:31)
[2021-08-05] MEDS: Furosemide 40 MG TABLET PO (08:31)
[2021-08-05] MEDS: Metoprolol Tartrate 25 MG TABLET PO (08:31)
[2021-08-05] MEDS: cephALEXin 500 MG CAPSULE PO (08:31)
[2021-08-05] MEDS: 0.9 % Sodium Chloride Flush 3 ML SYRINGE IVFLUSH (08:31)
[2021-08-05] MEDS: Pregabalin 150 MG CAPSULE PO (08:31)
--- NOTE | 2021-08-05 09:12 | PM.DS ---
DS: Providers Provider Date of Service: 08/05/21 Date of admission: 08/01/21 22:48 Primary care physician: Basilio Barnard MD Consults: 08/01/21 22:49 Consult to Gastroenterology Routine Consulting Provider: Yoandy Escobar Reason for consultation: gi bleed 08/03/21 08:45 Consult to Cardiology Routine Consulting Provider: Bert De Los Santos Reason for consultation: nstemi, gi bleed DS: Diagnosis Discharge Diagnosis (1) GI bleed: Status: Acute DS: Summary Hospital Course Hospital Course: from initial hpi:Chief Complaint: Dizziness ?70-year-old male with a past medical history of hypertension, hyperlipidemia, diabetes, history of peripheral vascular disease status post? aortobifemoral bypass surgery; thyroid nodule; lumbar spine spondylosis; presented to the hospital today with a chief complaint of lightheadedness and dizziness.? Patient reports that over the past 3 days he has been having lightheadedness and dizziness; also noted to have black tarry stools.? At least 2 episodes per day.? Home also complained of brief chest discomfort.? Which currently resolved.? Denies any fever chills cough.? Denies any urinary symptoms.? Review of all other systems is negative except mentioned above ER course: Per ER team patient noted to have guaiac-positive stool, black stool in the rectal what; hemoglobin drop from his baseline of ? 11.7-8.1.? EKG nonischemic.? Troponin negative.? Admitted to the hospital for further management hospital course: Patient was admitted for acute blood loss anemia due to acute upper GI bleed. Hemoglobin ED year was 7.4 on 08/02/2021, he was transfused 1 unit PRBC on that date and hemoglobin improved to 8.2, it is a 8.4 on discharge. Patient's aspirin and Plavix were held. he was treated with IV Protonix. He underwent EGD on 08/02/2021 which revealed actively bleeding 3 mm gastric AVM which was cauterized ulcer showed duodenitis with biopsies taken and pending. Diet was advanced and patient had no further melena. Course was complicated by type 2 NSTEMI. Patient was seen by Cardiology who recommended restarting single antiplatelet once okay with GI, patient was also restarted on his metoprolol. This was not felt to be ACS. Patient has known ischemic cardiomyopathy, repeat echo did show recovered ejection fraction. After discussion with Gastroenterology decision was made to restart Plavix on 08/06/2021, aspirin will be discontinued. For his peripheral vascular disease with history of infected graft, patient was continued on statin and his lifelong suppressive therapy with cephalexin. Patient has CKD 2 and his creatinine remained stable. For his diabetes he was continued on insulin. For patient's hypertension, his blood pressure meds were initially held a concern for GI bleed. He then had elevated pressures and losartan was restarted along with metoprolol. Blood pressure is better controlled at discharge. Patient is feeling much better will be discharged home. He should follow up with Gastroenterology and Cardiology. Time Spent with Patient Time attestation: Total time spent providing and/or coordinating discharge services: Discharge coordination time: Greater than 30 minutes Quality: Stroke Does the patient have a stroke diagnosis?: No Physical Exam Vital Signs: Vital Signs: Last Vital Signs Temp 97.9 F 08/05/21 07:18 Pulse 62 08/05/21 07:18 Resp 18 08/05/21 07:18 BP 100/50 L 08/05/21 07:18 Pulse Ox 98 08/05/21 07:18 BMI result Body Mass Index 37.0 General: AO X 3, no acute distress Resp: CTA bilateral, no accessory muscles used CVS: S1,S2,RRR GI: soft, non tender, non distended Neuro: motor grossly intact, alert Psych: appropriate affect, appropriate insight DS: Data Data Completed and Pending Completed studies during hospitalization [Text1]: Pending at discharge 08/02/21 12:20 Surgical [PTH] Routine Labs on day of discharge: Laboratory Results - last 24 hr 08/04/21 08/04/21 08/04/21 11:17 16:06 20:18 WBC RBC Hgb Hct MCV MCH MCHC RDW Plt Count MPV Absolute Nucleated RBC Nucleated RBC % (auto) Sodium Potassium Chloride Carbon Dioxide Anion Gap BUN Creatinine Estim Creat Clear Calc Estimated GFR POC Glucose 178 H 158 H 180 H Fasting Glucose Calcium 08/05/21 08/05/21 08/05/21 06:41 06:41 07:17 WBC 6.7 RBC 2.91 L Hgb 8.4 L Hct 25.2 L MCV 86.6 MCH 28.9 MCHC 33.3 RDW 15.2 Plt Count 140 L MPV 11.2 Absolute Nucleated RBC 0.000 Nucleated RBC % (auto) 0.0 Sodium 140 Potassium 4.1 Chloride 110 H Carbon Dioxide 23 Anion Gap 11 L BUN 23 H Creatinine 1.34 Estim Creat Clear Calc 63.8 Estimated GFR 52 POC Glucose 169 H Fasting Glucose 202 H Calcium 8.9 Discharge Plan Discharge Patient Disposition: Home, Self-Care Discharge Diagnosis: gi bleed, nstemi Referrals: Basilio Barnard MD [Primary Care Provider] - 1 Week Yoandy Escobar [Physician] - 1 Week Discharge Medications: New metoprolol tartrate 25 mg Tablet 25 mg PO BID Qty: 60 0RF Protocol: Hold for SBP/HR < HOLD for SBP < : 90 HOLD for HR < : 60 omeprazole 40 mg capsule,delayed release(DR/EC) 40 mg PO BID Qty: 60 0RF sucralfate [Carafate] 1 gram tablet 1 g PO BID Qty: 60 0RF Continued (DME) insulin syringe-needle U-100 [BD Insulin Syringe] 1 mL 27 gauge x 1/2 syringe See Rx Instructions .ROUTE .MEDSUPPLY Qty: 100 0RF Rx Instructions: As directed (DME) Dexcom G6 Green End Department Supervisor Misc See Rx Instructions .ROUTE .MEDSUPPLY Qty: 1 0RF Rx Instructions: As directed clopidogrel 75 mg tablet 75 mg PO DAILY Qty: 30 1RF insulin lispro [Humalog KwikPen Insulin] 100 unit/mL insulin pen 5 - 10 unit subcut TID Qty: 15 3RF Lantus Solostar U-100 Insulin 100 unit/mL (3 mL) insulin pen 40 unit subcut BEDTIME Qty: 15 3RF (DME) Dexcom G6 Sensor Device See Rx Instructions .ROUTE .MEDSUPPLY Qty: 3 11RF Rx Instructions: As directed pregabalin 150 mg capsule 150 mg PO TID Qty: 90 3RF (DME) pen needle, diabetic [Comfort EZ Pen Bishop] 31 gauge x 5/16 needle See Rx Instructions .ROUTE .MEDSUPPLY Qty: 100 5RF Rx Instructions: use 1 needle 5 times day day for insulin injections cephalexin 500 mg capsule 500 mg PO TID Qty: 270 0RF cetirizine 10 mg tablet 10 mg PO DAILY PRN (Reason: allergy symptoms) Qty: 90 3RF losartan 25 mg tablet 25 mg PO DAILY Qty: 90 3RF furosemide 40 mg tablet 40 mg PO DAILY Qty: 90 3RF (DME) Dexcom G6 Transmitter Device See Rx Instructions .ROUTE .MEDSUPPLY Qty: 1 1RF Rx Instructions: As directed ascorbic acid (vitamin C) [Vitamin C] 500 mg Tablet 500 mg PO DAILY 0RF cholecalciferol (vitamin D3) [Vitamin D3] 125 mcg (5,000 unit) Tablet 125 mcg PO DAILY 0RF Probiotic 3 billion cell Capsule 3,000 mmu cells PO DAILY 0RF tamsulosin 0.4 mg capsule 1 cap PO BEDTIME 0RF albuterol sulfate 90 mcg/actuation HFA aerosol inhaler 2 puff PO Q6H PRN (Reason: wheezing) 0RF rosuvastatin 20 mg tablet 20 mg PO BEDTIME 0RF (DME) lancets [OneTouch Delica Plus Lancet] 33 gauge misc See Rx Instructions ea topical QID Qty: 100 0RF Rx Instructions: As directed (DME) blood-glucose meter [[employer] Verio Reflect Meter] Misc See Rx Instructions ea .ROUTE .MEDSUPPLY Qty: 1 0RF Rx Instructions: As directed (DME) OneTouch Verio test strips Strip See Rx Instructions ea Not Applicable QID Qty: 10 0RF Rx Instructions: As directed Discontinued aspirin [Adult Aspirin Regimen] 81 mg tablet,delayed release (DR/EC) 81 mg PO DAILY 0RF Discharge Orders: Discharge Order (Routine); Ordered 08/05/21 Ordered By: Hussain Degroot Diet: advance to usual diet Activity on Discharge: As tolerated Stand Alone Forms: Patient Portal Discharge page Care Plan Goals: avoid rebleeding Health Concerns: gi bleed, cad Plan of Treatment: increase omperazole to 40mg bid for now, start carafate, follow up with gi, restart plavix on 08/06/21, monitor for bleeding, follow up with cardiology, restart metoprolol Assessment: see above
--- NOTE | 2021-08-05 09:20 | MHC.CM.PN ---
PT TO DC HOME TODAY WITH NO SERVICES PT WILL SELF-ARRANGE TRANSPORTATION
== END 2021-08-05 12:20 | disposition home or self-care (01) | DRG 377 ==
LOC: HO.ED 22:20 → HO.EDOVER 22:57 → HO.IMC 08-02 16:54
PROVIDERS: Internal Medicine; Internal Medicine Gastroenterology; Admitting Provider Hospitalist; Emergency Provider Emergency Medicine; PCP Internal Medicine; Visit Provider Internal Medicine
PROC: 0DB78ZX Excision of Stomach, Pylorus, Via Natural or Artificial Opening Endoscopic, Diagnostic (ICD-10-PCS; principal; 2021-08-02 11:30)
DX: K31.811 Angiodysplasia of stomach and duodenum with bleeding (principal); I21.A1 Myocardial infarction type 2; D62 Acute posthemorrhagic anemia; I13.0 Hypertensive heart and chronic kidney disease with heart failure and stage 1 through stage 4 chronic kidney disease, or unspecified chronic kidney disease; I50.22 Chronic systolic (congestive) heart failure; K29.81 Duodenitis with bleeding; N40.0 Benign prostatic hyperplasia without lower urinary tract symptoms; E11.40 Type 2 diabetes mellitus with diabetic neuropathy, unspecified; E78.5 Hyperlipidemia, unspecified; E11.51 Type 2 diabetes mellitus with diabetic peripheral angiopathy without gangrene; I25.10 Atherosclerotic heart disease of native coronary artery without angina pectoris; Z20.822 Contact with and (suspected) exposure to COVID-19; I25.5 Ischemic cardiomyopathy; Z87.891 Personal history of nicotine dependence; E11.22 Type 2 diabetes mellitus with diabetic chronic kidney disease; N18.2 Chronic kidney disease, stage 2 (mild); Z79.4 Long term (current) use of insulin; Z79.02 Long term (current) use of antithrombotics/antiplatelets; Z79.899 Other long term (current) drug therapy
CPT/HCPCS: 36415; 70450; 71045; 74176; 80048; 82272; 82947; 83540; 83735; 84484; 85025; 85027; 85610; 86850; 86900; 86901; 86923; 87635; 88305; 88342; 93005; 93308; 99285; J0171; J1100; J1170; J2405; J3010; P9016; Q9957

== ENCOUNTER → 2021-08-20 09:03 | Outpatient (BNVA) | payer MEDICARE, SELFPAY | PROVIDERS: PCP Internal Medicine; Visit Provider Internal Medicine | DX: M47.816 Spondylosis without myelopathy or radiculopathy, lumbar region (principal); E11.42 Type 2 diabetes mellitus with diabetic polyneuropathy; E11.319 Type 2 diabetes mellitus with unspecified diabetic retinopathy without macular edema; Z87.891 Personal history of nicotine dependence; Z95.1 Presence of aortocoronary bypass graft; Z46.2 Encounter for fitting and adjustment of other devices related to nervous system and special senses; Z79.4 Long term (current) use of insulin | CPT/HCPCS: 99212 ==

== ENCOUNTER 2021-09-26 08:11 | Outpatient (REF) | payer MEDICARE, SELFPAY ==
[2021-09-26 11:51] LABS: Alanine Aminotransferase 25 U/L (0-40); Albumin Level 4.2 g/dL (3.5-5.0); Alkaline Phosphatase 79 U/L (39-117); Anion Gap 14 (12-20); Aspartate Amino Transferase 24 U/L (5-37); Bilirubin Total 0.4 mg/dL (0.0-1.0); Blood Urea Nitrogen 20 mg/dL (9-16); Calcium 9.6 mg/dL (8.4-10.2); Carbon Dioxide 24 mmol/L (22-29); Chloride 104 mmol/L (96-108); Estimated Glomerular Filt Rate 49; Glucose Random 213 mg/dL (60-115); Potassium 4.3 mmol/L (3.3-5.1); Sodium 138 mmol/L (135-145)
[2021-09-26 11:58] LABS: Estimated Average Glucose 192 mg/dL; Hemoglobin A1c % 8.3 %
== END 2021-09-26 08:12 | disposition home or self-care (01) ==
LOC: HO.HMGCLDS 08:11
PROVIDERS: Visit Provider Internal Medicine
DX: E11.65 Type 2 diabetes mellitus with hyperglycemia (principal); E11.21 Type 2 diabetes mellitus with diabetic nephropathy; E11.40 Type 2 diabetes mellitus with diabetic neuropathy, unspecified; E11.319 Type 2 diabetes mellitus with unspecified diabetic retinopathy without macular edema; I10 Essential (primary) hypertension; I21.4 Non-ST elevation (NSTEMI) myocardial infarction; E04.9 Nontoxic goiter, unspecified; E78.5 Hyperlipidemia, unspecified; E55.9 Vitamin D deficiency, unspecified; Z87.891 Personal history of nicotine dependence; Z79.4 Long term (current) use of insulin; Z79.899 Other long term (current) drug therapy
CPT/HCPCS: 36415; 80053; 83036; Q3014

== ENCOUNTER 2021-11-14 07:36 | Outpatient (REF) | payer MEDICARE, SELFPAY | END 2021-11-14 07:37 | disposition home or self-care (01) | LOC: HO.RADIR 07:36 | PROVIDERS: Visit Provider Internal Medicine | DX: Z13.89 Encounter for screening for other disorder (principal) ==

== ENCOUNTER 2021-11-14 09:05 | Day surgery (SDC) | payer MEDICARE, SELFPAY ==
--- NOTE | ~2021-11-14 | FL_ITS ---
EXAMINATION: XR FLUOROSCOPY WITH IMAGES CLINICAL INFORMATION: Spinal implant. COMPARISON: CT abdomen and pelvis 08/01/2021 TECHNIQUE: Fluoroscopy performed by Dr. Orosco. Fluoroscopy time: 0.1 minutes DAP: 0.403 Gycm2 Images: 1 FINDINGS: Single fluoroscopic view demonstrate spinal needle with tip directed just beneath right mid lumbar pedicle. Niazl-[id number] does not allow confirmation of lumbar level. FL/FL guidance in OR IMPRESSION: Fluoroscopy for pain management procedure.
[2021-11-14 09:17] VITALS: BMI 35.9
[2021-11-14 09:19] VITALS: BP 146/70; PULSE 59; RESP 18; TEMP 36.8; O2SAT 98
[2021-11-14 10:59] VITALS: BP 142/62; PULSE 68; RESP 18; O2SAT 97
[2021-11-14 11:14] VITALS: BP 128/63; PULSE 59; RESP 18; TEMP 36.9; O2SAT 98
--- NOTE | 2021-11-14 15:15 | P.OP_ITS ---
Operative Note Operative Note Date of Service: 11/14/21 Narrative: Lumbar Medial Branch Nerve Stimulation Lead Placement, SPR (Sprint) System, Right L3 medial branch ? After the risks, benefits and alternatives were discussed with the patient and informed consent was obtained, patient was placed in the prone position and padded to foster comfort. The skin overlying the lumbosacral spine was prepped and draped in sterile fashion. Fluoroscopy was used to identify the L4 spinous process and lamina. After identifying and marking the intended target along the course of the L3 medial branch nerve, the skin around the planned entry point and the subcutaneous tissues were injected with lidocaine 0.5%. An introducer needle and stimulating probe were assembled, inserted and advanced along the intended course of the medial branch nerve as it traverses the lamina medial and inferior to the zygapophyseal joint, taking care to maintain the proper depth of insertion as the introducer is advanced under fluoroscopic guidance. The introducer needle was delivered to a location in proximity to the nerve. Multiple stimulation parameters were used to deliver stimulation to the target medial branch nerve in concert with stimulating at multiple positions around the nerve. Nerve target acquisition was confirmed noting generation of paresthesias in the paravertebral regions corresponding to the level being stimulated. Various electrical parameter combinations were tested, and the lead location was adjusted (physically relocated) until the patient indicated paresthesia/muscle tension overlapping the distribution of the patient?s typical region of pain. The stimulating probe was removed from the introducer and a percutaneous lead was guided through the needle and delivered to a location in similar proximity to the nerve. Final location was verified with electrical stimulation and documented with fluoroscopy. The introducer needle was removed, and the exposed end of the percutaneous lead was attached to an external stimulator unit. Various electrical parameter com binations were again tested until the patient indicated paresthesia or muscle tension overlapping the distribution of the patient?s typical region of pain. After confirming that lead impedance was in the normal range, the external unit was detached, the needle was removed, and the lead was anchored at the skin. The lead was threaded into the connector block and electrical continuity and desired patient response was confirmed. The connector block was attached to the external stimulator unit. The site was covered with a sterile occlusive dressing. The patient was observed for stability of vital signs and comfort.
--- NOTE | 2021-11-14 15:15 | P.BOP_ITS ---
Brief Operative Note Date of Service: 11/14/21 Pre-op diagnosis: Lumbar spondylosis, chronic low back pain Post-op diagnosis: same Procedure: Temporary right L3 medial branch nerve stimulator trial lead placement Implants: Sprint temporary PNS trial lead Surgeon: Elmer Orosco MD Anesthesia: local Was an Corporate Safety Manager used for this Procedure?: No Estimated blood loss (mL): 0 Pathology: none sent Condition: stable Disposition: same day
--- NOTE | 2021-11-14 15:15 | MHC.SHP ---
Pre-Procedural Eval Section A Date of Service: 11/14/21 The patient is an INPATIENT: No Changes since office visit: Yes Patient answered all questions The History & Physical has been completed within 30 days and I have reviewed it.: No Section B Chief Complaint: spondyloysis Relevant Family History (Specify if Yes): No Relevant Social History: None Present Medications: see Short Stay Collaborative assessment Medical History: Significant History (chronic low back pain) History of Previous Operations: No relevant previous surgery Allergies: Allergies Allergy/AdvReac Type Severity Reaction Status Date / Time No Known Allergies Allergy Unknown UNKNOWN Verified 11/14/21 09:17 Plan Diagnosis/Plan: Unchanged I have reviewed the history and physical and performed a pertinent physical examination on my patient. No changes have occurred unless specified.
== END 2021-11-14 11:45 | disposition home or self-care (01) ==
PROVIDERS: PCP Internal Medicine; Visit Provider Internal Medicine
PROC: (CPT 64555; principal; 2021-11-14 10:00)
DX: M43.06 Spondylolysis, lumbar region (principal); G89.29 Other chronic pain; M54.50 Low back pain, unspecified; E11.319 Type 2 diabetes mellitus with unspecified diabetic retinopathy without macular edema; E11.40 Type 2 diabetes mellitus with diabetic neuropathy, unspecified; I25.2 Old myocardial infarction; I25.5 Ischemic cardiomyopathy; I10 Essential (primary) hypertension; I73.9 Peripheral vascular disease, unspecified; B19.20 Unspecified viral hepatitis C without hepatic coma; E55.9 Vitamin D deficiency, unspecified; D64.9 Anemia, unspecified; E04.1 Nontoxic single thyroid nodule; Z79.4 Long term (current) use of insulin; Z79.899 Other long term (current) drug therapy; Z87.891 Personal history of nicotine dependence
CPT/HCPCS: 64555; C1778

== ENCOUNTER → 2021-11-26 09:17 | Outpatient (BNVA) | payer MEDICARE, SELFPAY | PROVIDERS: PCP Internal Medicine; Visit Provider Internal Medicine | DX: M47.816 Spondylosis without myelopathy or radiculopathy, lumbar region (principal); G62.9 Polyneuropathy, unspecified; G89.29 Other chronic pain | CPT/HCPCS: Q3014 ==

== ENCOUNTER 2021-12-25 06:34 | Day surgery (SDC) | payer MEDICARE, SELFPAY ==
[2021-12-19 10:38] VITALS: BMI 36.3
[2021-12-25] MEDS: Lactated Ringers 1,000 ML 50 ML IVCONT (07:03)
[2021-12-25 07:04] VITALS: BP 152/61; PULSE 72; RESP 18; TEMP 36.4; O2SAT 97
[2021-12-25 07:06] LABS: Glucose, Whole Blood 127 mg/dL (60-115)
--- NOTE | 2021-12-25 07:28 | MHC.SHP ---
Pre-Procedural Eval Section A Date of Service: 12/25/21 Section B Chief Complaint: screening Details of Present Illness: see h&p no changes Relevant Family History (Specify if Yes): No Relevant Social History: None Present Medications: see Short Stay Collaborative assessment Medical History: No relevant PMH History of Previous Operations: No relevant previous surgery Allergies: Allergies Allergy/AdvReac Type Severity Reaction Status Date / Time No Known Allergies Allergy Unknown UNKNOWN Verified 12/25/21 07:08 Review of Systems Sugical H&P ROS: Negative: Constitution, Cardiovascular, Respiratory, Neurological, Psychiatric, Hem-Onc, Allergic/Immunologic, Gastrointestinal, Genitourinary, Musculoskeletal, Integumentary, Endocrine and Eyes/Ears/Nose/Throat Exam Surgical H&P Exam: Normal: HEENT, Normal: Heart, Normal: Lungs, Normal: Extremities, Normal: Abdomen, Normal: Skin and Normal: Neurological Plan Diagnosis/Plan: Unchanged I have reviewed the history and physical and performed a pertinent physical examination on my patient. No changes have occurred unless specified.
--- NOTE | 2021-12-25 07:55 | HO.ANESPROP2 ---
HPI - Anesthesia Eval Consult details Narrative: 71M for colonoscopy [facility] Active Problems Active Problems: All Active Problems (Updated 12/19/21 @ 10:38 by Melanie Mckeon RN) T2DM (type 2 diabetes mellitus) (Acute) Pleural effusion (Acute) Groin abscess (Acute) Obesity (Acute) Carotid bruit (Acute) Myofascial pain syndrome of lumbar spine (Acute) GI bleed (Acute) Elevated troponin (Acute) Chronic pain (Acute) Ischemic cardiomyopathy (Acute) T2DM (type 2 diabetes mellitus) (Acute) Spondylosis of lumbar spine (Acute) HTN (hypertension) (Acute) History of non-ST elevation myocardial infarction (NSTEMI) (Acute) S/P aorto-bifemoral bypass surgery (Acute) PVD (peripheral vascular disease) (Acute) Post-nasal drainage (Acute) Type 2 diabetes mellitus with diabetic neuropathy (Acute) Thyroid nodule (Acute) HLD (hyperlipidemia) (Acute) Lower back pain (Acute) Neuropathy (Acute) Chronic anemia (Acute) Cough (Acute) BPH (benign prostatic hyperplasia) (Acute) Diabetic retinopathy (Acute) Goiter (Acute) Vitamin D deficiency (Acute) Past Medical History Medical History BPH (benign prostatic hyperplasia) Chronic anemia Cough Diabetic retinopathy Goiter HCV (hepatitis C virus) History of non-ST elevation myocardial infarction (NSTEMI) HLD (hyperlipidemia) HTN (hypertension) Ischemic cardiomyopathy Lower back pain Neuropathy NSTEMI (non-ST elevated myocardial infarction) Post-nasal drainage PVD (peripheral vascular disease) S/P placement of nerve stimulator Spondylosis of lumbar spine T2DM (type 2 diabetes mellitus) Thyroid nodule Type 2 diabetes mellitus with diabetic neuropathy Vitamin D deficiency Family History Family History Father Diabetes Mother Diabetes Leukemia Skin cancer Alzheimers disease Dementia Family history of problems with anesthesia: No Surgical History Surgical History H/O colonoscopy History of esophagogastroduodenoscopy (EGD) Hx of basal cell carcinoma excision S/P aorto-bifemoral bypass surgery History of Problems with Anesthesia: No Social History Social History Household Members: Spouse Housing: House Do you presently have visiting nurse or other home services: No Alcohol intake: never Patient Tobacco Use Status: Former Tobacco user Tobacco use type: Cigarette Cigarette Packs Per Day: 3 Years Smoked: 30 e-Cigarette/Vaping Use: Never Used Second Hand Smoke Exposure: No Are you DNR?: No Advance Directives: Yes Advance Directives on File: Yes Advance Directives Date on File: 08/02/21 Nutrition Risks: No Nutritional Risk service: Yes Current occupational status: retired [employer] Allergies Allergy/AdvReac Type Severity Reaction Status Date / Time No Known Allergies Allergy Unknown UNKNOWN Verified 12/25/21 07:08 Active Medications: Current Medications Lactated Ringer's (Lr) 1,000 mls @ 50 mls/hr IVCONT .Q20H TESS Last Admin: 12/25/21 07:03 Dose: 50 mls/hr Home Medications Medication Instructions Recorded Confirmed Last Taken Type ascorbic acid (vitamin C) 500 mg 500 mg PO DAILY 02/06/21 09/26/21 08/01/21 History tablet (Vitamin C) cholecalciferol (vitamin D3) 125 125 mcg PO DAILY 02/06/21 09/26/21 08/01/21 History mcg (5,000 unit) tablet (Vitamin D3) lactobacillus combination no.4 3 3,000 mmu cells PO DAILY 02/06/21 12/19/21 08/01/21 History billion cell capsule (Probiotic) blood sugar diagnostic (OneTouch #10 ea 02/21/21 09/26/21 Unknown History Verio test strips) blood-glucose meter (OneTouch #1 ea 02/21/21 09/26/21 Unknown History Verio Reflect Meter) lancets 33 gauge (OneTouch Delica #100 ea 02/21/21 09/26/21 Unknown History Plus Lancet) albuterol sulfate 90 mcg/actuation 2 puff PO Q6H PRN wheezing 08/01/21 09/26/21 Unknown History aerosol inhaler rosuvastatin 20 mg tablet 20 mg PO BEDTIME 08/01/21 09/26/21 07/31/21 History tamsulosin 0.4 mg capsule 1 cap PO BEDTIME 08/01/21 12/19/21 07/31/21 History insulin glargine 100 unit/mL (3 50 unit subcut BEDTIME 09/26/21 12/19/21 Unknown History mL) subcutaneous pen (Lantus Solostar U-100 Insulin) losartan 25 mg tablet 50 mg PO DAILY 09/26/21 12/19/21 Unknown History ferrous sulfate 325 mg (65 mg 1 tab PO DAILY 12/19/21 12/19/21 12/18/21 History iron) tablet,delayed release Exam Exam Date and Time: December 25, 2021 0755 Height,Weight and Vital Signs: Height 5 ft 10 in Weight 253 lb Last Vital Signs Temp 97.6 F 12/25/21 07:04 Pulse 72 12/25/21 07:04 Resp 18 12/25/21 07:04 BP 152/61 H 12/25/21 07:04 Pulse Ox 97 12/25/21 07:04 O2 Del Method 12/25/21 07:04 Pertinent Lab Results Pertinent Lab Results: Laboratory Tests 12/25/21 06:51 POC Glucose 127 H Airway Mallampati Class: III TM Dist: >3cm Neck ROM: Full Loose/Missing/Broken Teeth: Yes Assessment and Plan Assessment Anesthesia Assessment: Anesthesia Plan Discussed and Chart Reviewed Final Anesthetic Review Family History of Problems with Anesthesia: No History of Problems with Anesthesia: No NPO: Yes ASA Class: III Final Preanesthetic Review: No Changes in Pt Med Stat, Meds/Allgs Chart Reviewed, Consent Obtained/Reviewed and Anes Risks/Benef Reviewed Patient Risk: Intermediate Procedure Risk: Low Anesthetic Plan Anesthetic Plan: MAC: Disposition: Standard PACU
--- NOTE | 2021-12-25 08:08 | P.BOP_ITS ---
Brief Operative Note Date of Service: 12/25/21 Pre-op diagnosis: screening Post-op diagnosis: same Procedure: colonoscopy Surgeon: Yaya Torres Anesthesia: MAC Was an Electrical Wiring Lineman used for this Procedure?: No Estimated blood loss (mL): 5 Pathology: other Condition: stable Disposition: PACU
[2021-12-25 08:09] VITALS: BP 121/50; PULSE 67; RESP 16; TEMP 36.5; O2SAT 96
--- NOTE | 2021-12-25 08:22 | PC.NURSE ---
dr. sam updated prior to pt leaving sss that occ. pvc noted in ekg strip
[2021-12-25 08:24] VITALS: BP 107/62; PULSE 56; RESP 16; O2SAT 95
--- NOTE | 2021-12-25 08:25 | OP_ITS ---
SURGEON: Yaya Torres MD INDICATIONS: Colon cancer screening. PREOPERATIVE DIAGNOSIS: POSTOPERATIVE DIAGNOSIS: PROCEDURE PERFORMED: Colonoscopy to the terminal ileum with snare polypectomy. ESTIMATED BLOOD LOSS: COMPLICATIONS: ANESTHESIA: ASSISTANTS: SPECIMENS: MEDICATIONS: Monitored anesthesia care. DESCRIPTION OF PROCEDURE: A history and physical were performed. The risks and benefits of the procedure were explained to the patient. Informed consent was obtained. The patient was placed in a left lateral decubitus position. A digital rectal exam was performed and was found to be normal. The Olympus pediatric video colonoscope was introduced into the rectum and advanced to the cecum without difficulty. The cecum was identified by transillumination, palpation, and identification of ileocecal valve. Examination was performed. The scope was removed. He tolerated the procedure well and was taken to the recovery area in stable condition. FINDINGS: The terminal ileum was normal. The visualized colonic mucosa was normal. There was a large amount of partially digested food, which was suctioned as best possible. This limited the sensitivity examination for detection of small polyps. A single polyp was identified in the vicinity of the hepatic flexure measuring 6 mm. This was removed with a cold snare and recovered via suction. No other polyps were identified. There was a single diverticulum seen in the cecum. Retroflexed examination showed small internal hemorrhoids. IMPRESSION: Colon polyp. RECOMMENDATION: Follow up the biopsy results. MD BRIAN Hanna/JEANETTE / [id number]
[2021-12-25 08:39] VITALS: BP 147/77; PULSE 57; RESP 16; TEMP 36.6; O2SAT 96
== END 2021-12-25 09:06 | disposition home or self-care (01) ==
PROVIDERS: PCP Internal Medicine; Visit Provider Internal Medicine Gastroenterology
PROC: 0DJD8ZZ Inspection of Lower Intestinal Tract, Via Natural or Artificial Opening Endoscopic (ICD-10-PCS; CPT 45378; principal; 2021-12-25 07:30)
DX: Z12.11 Encounter for screening for malignant neoplasm of colon (principal); D12.3 Benign neoplasm of transverse colon; K57.30 Diverticulosis of large intestine without perforation or abscess without bleeding; K64.8 Other hemorrhoids; K92.2 Gastrointestinal hemorrhage, unspecified; I25.10 Atherosclerotic heart disease of native coronary artery without angina pectoris; I10 Essential (primary) hypertension; I25.2 Old myocardial infarction; I25.5 Ischemic cardiomyopathy; I73.9 Peripheral vascular disease, unspecified; E78.5 Hyperlipidemia, unspecified; N40.0 Benign prostatic hyperplasia without lower urinary tract symptoms; E11.9 Type 2 diabetes mellitus without complications; Z79.4 Long term (current) use of insulin; Z79.899 Other long term (current) drug therapy; Z98.890 Other specified postprocedural states
CPT/HCPCS: 45385; 82947; 88305

== ENCOUNTER → 2021-12-26 12:00 | Outpatient (BNVA) | payer MEDICARE, SELFPAY | PROVIDERS: PCP Internal Medicine; Visit Provider Internal Medicine | DX: E11.65 Type 2 diabetes mellitus with hyperglycemia (principal); Z79.4 Long term (current) use of insulin; E78.5 Hyperlipidemia, unspecified; I10 Essential (primary) hypertension | CPT/HCPCS: Q3014 ==

== ENCOUNTER → 2022-01-21 10:02 | Outpatient (BNVA) | payer MEDICARE, SELFPAY | PROVIDERS: PCP Internal Medicine; Visit Provider Internal Medicine | DX: M47.816 Spondylosis without myelopathy or radiculopathy, lumbar region (principal); G89.29 Other chronic pain | CPT/HCPCS: 99212 ==

== ENCOUNTER → 2022-12-06 10:09 | Outpatient (BNVA) | payer MEDICARE, SELFPAY | PROVIDERS: PCP Internal Medicine; Visit Provider Internal Medicine ==

== ENCOUNTER 2023-06-06 15:11 | Emergency (ER) | payer MEDICARE, SELFPAY ==
[2023-06-06 15:29] VITALS: BP 204/100; PULSE 55; O2SAT 98
[2023-06-06 15:36] VITALS: BP 126/51; PULSE 58; RESP 18; TEMP 36.5; O2SAT 96; BMI 32.8
--- NOTE | 2023-06-06 16:18 | ED.GENADULT ---
HPI - General Adult General Chief complaint: General Medical Stated complaint: THIGH PAIN X3DAYS NONAMBULATORY, PER EMS Time Seen by Provider: 06/06/23 16:04 Source: patient, family and old records reviewed Mode of arrival: ambulatory Limitations: no limitations History of Present Illness HPI narrative: 72 yo male with hx of DM, ischemic cardiomyopathy, back pain, HTN, NSTEMI and CAD s/p PCI on aspirin/plavix, HLD, BPH, PVD s/p aortobifemoral bypass [address] [facility] [address] [place] complicated by L graft infection with abscess has been on both PICC and now on daily cephalexin 500mg x 1. He comes in after doing work on Friday and no developing significant R buttock groin and leg pain. It hurts to move, walk, lay flat. He has no fevers, chills, numbness or weakness. He abdomen does not hurt. He is compliant with all medications. He has no pain in the L groin where he has had all of his issues. MD complaint: R leg pain Onset (ago): day(s) (started Friday ) Location: buttocks and right Radiation: distal Severity: severe Quality: stabbing and aching Pain Consistency: constant Relieving factors: rest Exacerbating factors: movement and other (laying flat) Associated symptoms: denies other symptoms Treatments prior to arrival: none Related Data Home Medications Medication Instructions Recorded Confirmed ascorbic acid (vitamin C) 500 mg 500 mg PO DAILY 02/06/21 01/21/22 tablet (Vitamin C) cholecalciferol (vitamin D3) 125 125 mcg PO DAILY 02/06/21 01/21/22 mcg (5,000 unit) tablet (Vitamin D3) lactobacillus combination no.4 3 3,000 mmu cells PO DAILY 02/06/21 01/21/22 billion cell capsule (Probiotic) blood sugar diagnostic ([employer] FranchiseTouch #10 ea 02/21/21 12/26/21 Verio test strips) blood-glucose meter (OneTouch #1 ea 02/21/21 12/26/21 Verio Reflect Meter) lancets 33 gauge (OneTouch Delica #100 ea 02/21/21 12/26/21 Plus Lancet) albuterol sulfate 90 mcg/actuation 2 puff PO Q6H PRN wheezing 08/01/21 01/21/22 aerosol inhaler rosuvastatin 20 mg tablet 20 mg PO BEDTIME 08/01/21 01/21/22 tamsulosin 0.4 mg capsule 1 cap PO BEDTIME 08/01/21 01/21/22 losartan 25 mg tablet 50 mg PO DAILY 09/26/21 01/21/22 ferrous sulfate 325 mg (65 mg 1 tab PO DAILY 12/19/21 01/21/22 iron) tablet,delayed release Previous Rx's Medication Instructions Recorded insulin syringe-needle U-100 1 mL #100 ea 03/09/20 27 gauge x 1/2 (BD Insulin Syringe) clopidogrel 75 mg tablet 75 mg PO DAILY #30 tabs 02/26/21 pregabalin 150 mg capsule 150 mg PO TID #90 caps 04/30/21 furosemide 40 mg tablet 40 mg PO DAILY #90 tabs 05/15/21 omeprazole 40 mg capsule,delayed 40 mg PO BID #60 caps 08/05/21 release pregabalin 75 mg capsule 75 mg PO DAILY #30 caps 11/26/21 pen needle, diabetic 31 gauge x #100 ea 12/17/2110/15 (Comfort EZ Pen [place]) insulin glargine 100 unit/mL (3 50 unit (0.5 mL) subcut BEDTIME 08/07/22 mL) subcutaneous pen (Lantus #15 mL Solostar U-100 Insulin) insulin aspart U-100 100 unit/mL 5 - 10 unit (0.05 - 0.1 mL) subcut 10/21/22 (3 mL) subcutaneous pen (Novolog TID 30 days #15 mL FlexPen U-100 Insulin aspart) blood-glucose sensor (Dexcom G6 #3 ea 05/28/23 Sensor device) blood-glucose transmitter (Dexcom #1 ea 05/28/23 G6 Transmitter device) morphine 15 mg immediate release 15 mg PO Q6H PRN pain #12 tabs 06/06/23 tablet Allergies Allergy/AdvReac Type Severity Reaction Status Date / Time No Known Allergies Allergy Unknown UNKNOWN Verified 12/06/22 10:19 Review of Systems Review of Systems: Constitutional : No Fever, No Chills ENT/Mouth : No Ear Pain, No Hoarseness, No sore throat Eyes: No Eye Pain, No Swelling, No Redness, No Foreign Body Cardiovascular : No Chest Pain, No SOB Respiratory : No Cough, No Dyspnea Gastrointestinal : No Nausea, No Vomiting, No Diarrhea, No abdominal Pain Genitourinary : No Dysuria, No Hematuria Musculoskeletal : positive joint pain, No Myalgias, No Joint Swelling Skin : No Skin lacerations, No rash Neuro : No Weakness, No Numbness, No Loss of Consciousness, No Dizziness, No Headache Psych : No Anxiety/Panic, No Depression All other systems reviewed and are negative PMFSH Past Medical History Attestation statement: The following information was validated with the patient. Source: old records reviewed Onset Date is defined in the Problem List Problems that require an onset date and time if occurred within 24 hrs of arrival to the ED Aortic Dissection and Rupture; Neurologic impairment; Cardiopulmonary Arrest; Endotracheal Intubation; Insertion or Replacement of Mechanical Circulatory Assist Device Medical History HCV (hepatitis C virus) Ischemic cardiomyopathy T2DM (type 2 diabetes mellitus) Spondylosis of lumbar spine History of non-ST elevation myocardial infarction (NSTEMI) NSTEMI (non-ST elevated myocardial infarction) Post-nasal drainage Type 2 diabetes mellitus with diabetic neuropathy Thyroid nodule Lower back pain Neuropathy Chronic anemia Cough BPH (benign prostatic hyperplasia) Diabetic retinopathy PVD (peripheral vascular disease) Goiter Vitamin D deficiency HLD (hyperlipidemia) HTN (hypertension) Surgical History S/P placement of nerve stimulator H/O colonoscopy History of esophagogastroduodenoscopy (EGD) S/P aorto-bifemoral bypass surgery Hx of basal cell carcinoma excision Family History Family History Father Diabetes Mother Diabetes Leukemia Skin cancer Alzheimers disease Dementia Social History Social History Household Members: Spouse Housing: House Do you presently have visiting nurse or other home services: No Alcohol intake: never Patient Tobacco Use Status: Former Tobacco user Tobacco use type: Cigarette Cigarette Packs Per Day: 3 Years Smoked: 30 e-Cigarette/Vaping Use: Never Used Second Hand Smoke Exposure: No Advance Directives: Yes Advance Directives on File: Yes Advance Directives Date on File: 08/02/21 service: Yes Current occupational status: retired Physical Exam ED Vital Signs: Vital Signs - 24 hr 06/06/23 15:36 06/06/23 19:24 Temperature 97.7 F 97.9 F Pulse Rate 58 54 Respiratory Rate 18 16 Blood Pressure 126/51 L 109/61 Pulse Oximetry 96 97 Oxygen Delivery Method Room Air Room Air BMI result Body Mass Index 32.8 Appearance: Alert. Oriented X3. No acute distress. Eyes: Pupils equal, round and reactive to light. ENT: Pharynx normal. Neck: Normal inspection. Neck supple. CVS: Normal heart rate and rhythm. Pulses normal. Respiratory: No respiratory distress. Breath sounds normal. Abdomen: Soft and non-tender. : no scrotal pain Skin: Skin warm and dry. Normal skin color. Normal skin turgor. Extremities: No lower extremity edema. pulses felt in both groins no mass no warmth/erythema/fluctuance distal pulses intact 1+ pitting edema RLE pain in R buttock and trying to range R hip Neuro: Oriented X 3. No motor deficit. No sensory deficit. Course Course Course Narrative: repeat calls to radiology for read 827pm Medications Administered Generic Name Dose Route Start Last Admin Trade Name Freq PRN Reason Stop Dose Admin Sodium Chloride 1,000 mls @ 100 mls/hr 06/06/23 17:15 06/06/23 18:05 Ns IVCONT 100 mls/hr .Q10H TESS Administration Discontinued Medications Generic Name Dose Route Start Last Admin Trade Name Freq PRN Reason Stop Dose Admin Hydromorphone HCl 1 mg 06/06/23 16:15 06/06/23 16:43 Hydromorphone Hcl 1 Mg/Ml Syringe IVPUSH 06/06/23 16:16 1 mg ONCE ONE Administration Protocol Iohexol 99 ml 06/06/23 17:38 06/06/23 17:39 Iohexol 350 Mg/Ml 100 Ml Infus..Btl IV 06/06/23 17:39 99 ml ONCE ONE Administration Medical Decision Making Medical Decision Making MDM Narrative: 84 yo male with PMH of anemia, PPM, HLD, HTN, prostate cancer, bladder outlet obstruction, CKD here with c/o atraumatic R hip and groin pain with RLE pain - he is NV intact has bounding pulses no signs of infection in R groin no mass felt. At this time no external signs of trauma. Will obtain DVT study, CTA of abdomen pending kidney function, IV dilaudid for pain. Basic labs and infl markers. Differential Diagnosis Differential Diagnoses: The differential diagnosis associated with the presentation includes DVT, strain, sprain, sciatica, inflammation Admission/Observation Consideration of admission/observation: Escalation of care including admission/observation considered doubt infection negative infl markers Lab Data MDM Lab Attestation statement: I reviewed the patient's lab results. 06/06/23 16:43 06/06/23 16:42 Labs: Lab Results 06/06/23 06/06/23 Range/Units 16:42 16:43 WBC 11.5 H (4.8-10.8) X10*3/uL RBC 4.90 D (4.60-5.80) X10*6/uL Hgb 14.7 D (14.0-18.0) g/dl Hct 43.1 D (42.0-52.0) % MCV 88.0 (80.0-98.0) fL MCH 30.0 (27.0-33.0) pg MCHC 34.1 (31.0-36.0) g/dl RDW 13.1 (11.0-16.0) % Plt Count 184 D (160-400) X10*3/uL MPV 10.4 (9.4-12.4) fL Immature Gran % (Auto) 0.3 (0.0-0.4) % Neut % (Auto) 47.7 (45-73) % Lymph % (Auto) 43.0 H (20-40) % Graham % (Auto) 6.1 (2-11) % Eos % (Auto) 2.5 (0-4) % Baso % (Auto) 0.4 (0-2) % Lymph # (Auto) 5.0 H (1.2-4.9) X10*3/uL Graham # (Auto) 0.7 (0.1-1.2) X10*3/uL Eos # (Auto) 0.3 (0.0-0.4) X10*3/uL Baso # (Auto) 0.1 (0.0-0.2) X10*3/uL Abs Immat Gran (auto) 0.03 (0.00-0.03) X10*3/uL Absolute Neuts (auto) 5.5 (2.0-8.3) x10*3/uL Absolute Nucleated RBC 0.000 (0.0-0.012) X10*3/uL Nucleated RBC % (auto) 0.0 (0.0-0.2) /100WBC ESR 4 (0-15) MM/HR Sodium 139 (135-145) mmol/L Potassium 4.4 (3.3-5.1) mmol/L Chloride 108 (96-108) mmol/L Carbon Dioxide 18 L (22-29) mmol/L Anion Gap 17 (12-20) BUN 22 H (9-16) mg/dL Creatinine 1.49 H (0.5-1.4) mg/dL Estim Creat Clear Calc 52.4 Estimated GFR 46 Random Glucose 162 H (60-115) mg/dL Calcium 9.3 (8.4-10.2) mg/dL Magnesium 2.4 (1.6-2.6) mg/dL Total Bilirubin 0.6 (0.0-1.0) mg/dL Direct Bilirubin 0.2 (0.0-0.5) mg/dL AST 20 (5-37) U/L ALT 18 (0-40) U/L Alkaline Phosphatase 70 (39-117) U/L C-Reactive Protein < 0.10 (< or = 0.50) mg/dL Total Protein 7.5 (6.5-8.0) g/dL Albumin 4.6 (3.5-5.0) g/dL Independent Interpretation I performed an independent interpretation of an: Ultrasound (no DVT) and CT Scan (patent no signs of infection) Radiology Impression Discussion of test interpretation with radiology: I have reviewed the radiologist's reading. Independent Historian Clinical information obtained from an independent historian. History obtained from or confirmed by: Spouse External Record Review External record reviewed: Inpatient record, Office record and Outpatient record Prescription Management I considered prescription management with: Pain Medication Critical Care Time Critical Care Time Critical Care Time: Yes Total Critical Care Time: 35 Attestation: pain drastically improved with IV dilaudid I attest to this time spent taking care of the patient Discharge Plan Discharge Clinical Impression: Pain in the groin Qualifiers: Laterality: right Qualified Code(s): R10.31 - Right lower quadrant pain Acute leg pain Qualifiers: Laterality: right Qualified Code(s): M79.604 - Pain in right leg Patient Disposition: Home, Self-Care Instructions: Groin Pain (ED), Leg Pain (ED) Additional Instructions: patent bypass, no acute signs of infection, - other incidental findings - chronic inflammation of the pancreas, gallstones, fat hernias on the abdominal wall, lower spine has degenerative changes at this time no blood clot and inflammatory markers are negative would follow up with your team at [facility]. return for worsening symptoms concerns, numbness, fevers or any other concerns. Prescriptions: New morphine 15 mg tablet 15 mg PO Q6H PRN (Reason: pain) Qty: 12 0RF Rx Instructions: partial fill okay; Partial Fill upon patient request. No Action (DME) insulin syringe-needle U-100 [BD Insulin Syringe] 1 mL 27 gauge x 1/2 syringe See Rx Instructions .ROUTE .MEDSUPPLY Qty: 100 0RF Rx Instructions: As directed clopidogrel 75 mg tablet 75 mg PO DAILY Qty: 30 1RF Hold Instructions: Resume on 12/28/21. restart in 3 days pregabalin 150 mg capsule 150 mg PO TID Qty: 90 3RF furosemide 40 mg tablet 40 mg PO DAILY Qty: 90 3RF (DME) pen needle, diabetic [Comfort EZ Pen [place]] 31 gauge x 5/16 needle See Rx Instructions .ROUTE .MEDSUPPLY Qty: 100 11RF Rx Instructions: use 1 needle 5 times day day for insulin injections insulin glargine [Lantus Solostar U-100 Insulin] 100 unit/mL (3 mL) insulin pen 50 unit subcut BEDTIME Qty: 15 1RF insulin aspart U-100 [Novolog FlexPen U-100 Insulin] 100 unit/mL (3 mL) insulin pen 5 - 10 unit subcut TID 30 Days Qty: 15 11RF (DME) Dexcom G6 Transmitter Device See Rx Instructions .ROUTE .MEDSUPPLY Qty: 1 11RF Rx Instructions: As directed (DME) Dexcom G6 Sensor Device See Rx Instructions .Route Qty: 3 4RF Rx Instructions: As directed change every 10 days ascorbic acid (vitamin C) [Vitamin C] 500 mg Tablet 500 mg PO DAILY cholecalciferol (vitamin D3) [Vitamin D3] 125 mcg (5,000 unit) Tablet 125 mcg PO DAILY Probiotic 3 billion cell Capsule 3,000 mmu cells PO DAILY tamsulosin 0.4 mg capsule 1 cap PO BEDTIME albuterol sulfate 90 mcg/actuation HFA aerosol inhaler 2 puff PO Q6H PRN (Reason: wheezing) rosuvastatin 20 mg tablet 20 mg PO BEDTIME omeprazole 40 mg capsule,delayed release(DR/EC) 40 mg PO BID Qty: 60 0RF ferrous sulfate 325 mg (65 mg iron) tablet,delayed release (DR/EC) 1 tab PO DAILY (DME) lancets [OneTouch Delica Plus Lancet] 33 gauge misc See Rx Instructions topical QID Qty: 100 Rx Instructions: As directed (DME) blood-glucose meter [OneTouch Verio Reflect Meter] Misc See Rx Instructions .ROUTE .MEDSUPPLY Qty: 1 Rx Instructions: As directed (DME) OneTouch Verio test strips Strip See Rx Instructions Not Applicable QID Qty: 10 Rx Instructions: As directed losartan 25 mg tablet 50 mg PO DAILY pregabalin 75 mg capsule 75 mg PO DAILY Qty: 30 0RF Rx Instructions: Replace afternoon dose with 75mg capsule; continue previous script for morning and evening
[2023-06-06 19:24] VITALS: BP 109/61; PULSE 54; RESP 16; TEMP 36.6; O2SAT 97
[2023-06-06 21:05] VITALS: BP 161/78; PULSE 55; RESP 20; O2SAT 98
== END 2023-06-06 21:13 | disposition home or self-care (01) ==
PROVIDERS: Emergency Provider Emergency Medicine
DX: M79.604 Pain in right leg (principal); R60.0 Localized edema; R10.31 Right lower quadrant pain; R11.2 Nausea with vomiting, unspecified; Z87.891 Personal history of nicotine dependence; Z79.899 Other long term (current) drug therapy
CPT/HCPCS: 36415; 75635; 80048; 80076; 83735; 85025; 85652; 86140; 93971; 96361; 96374; 99284; J1170; Q9967

== ENCOUNTER 2023-07-28 12:23 | Emergency (ER) | payer MEDICARE, SELFPAY ==
--- NOTE | ~2023-07-28 | US_ITS ---
EXAMINATION: NONINVASIVE ASSESSMENT OF THE ARTERIES OF THE RIGHT LOWER EXTREMITIES INCLUDING BILATERAL LOWER EXTREMITY DUPLEX. CLINICAL INFORMATION: Leg pain COMPARISON: CTA runoff on 06/06/2023 TECHNIQUE: duplex Doppler techniques with wave form analysis and measurement of velocities in the common femoral, profunda femoral, superficial femoral, popliteal, tibial and peroneal arteries. The study was performed only at rest. FINDINGS: There is atherosclerotic disease. RIGHT LEG Common femoral artery: 174 cm/s, Multiphasic Profunda femoris artery: 100 cm/s, Multiphasic Superficial femoral artery (proximal): 143 cm/s, Multiphasic Superficial femoral artery (mid): 112 cm/s, Multiphasic Superficial femoral artery (distal): 139 cm/s, Multiphasic Proximal Popliteal artery: 229 cm/s, Multiphasic Mid posterior tibial artery: 45 cm/s, Multiphasic US/US arterial duplex LE RT IMPRESSION: Mild atherosclerotic disease of the right lower extremity. No hemodynamically significant stenoses.
--- NOTE | ~2023-07-28 | CT_ITS ---
EXAMINATION: CT ABDOMEN AND PELVIS WITHOUT CONTRAST CLINICAL INFORMATION: Abdominal pain, back pain. COMPARISON: CT abdomen/pelvis 06/06/2023. TECHNIQUE: Multidetector volumetric imaging was performed from the superior aspect of the liver through the pubic symphysis. Sagittal and coronal reformatted images were obtained on the technologist's workstation. This CT examination was performed using dose optimization techniques as appropriate, variously including the following: *Automated exposure control *Adjustment of mA and/or kV according to patient size (this includes techniques or standardized protocols for targeted exams where dose is matched to indication/reason for exam; i.e. extremities or head) *Use of iterative reconstruction technique DLP: 678 mGy-cm FINDINGS: The lack of intravenous contrast limits evaluation of the solid visceral organs including the liver, spleen, pancreas, and kidneys. LUNG BASES: No focal consolidation or pleural effusion. Partially seen coronary artery calcifications. LIVER, GALLBLADDER, AND BILIARY TREE: The liver is normal in size, shape, and attenuation. No focal hepatic lesion or biliary ductal dilatation is present. Layering calculi in the gallbladder neck. No significant pericholecystic fat stranding or free fluid to suspected acute cholecystitis. PANCREAS: Again noted atrophic pancreas with diffuse coarse calcifications as well as beaded dilatation of the main pancreatic duct measuring up to 0.9 cm in diameter, suggestive of sequela of chronic pancreatitis. No significant peripancreatic inflammatory changes to suspect superimposed acute pancreatitis. SPLEEN: Unremarkable. ADRENAL GLANDS: Unremarkable. KIDNEYS AND URETERS: The kidneys are normal in size, shape, and attenuation. No hydronephrosis, hydroureter, or calculi seen. No perinephric stranding. BLADDER: Unremarkable. GASTROINTESTINAL TRACT: The stomach and the small bowel are nondilated. Normal appendix. No pericolonic inflammatory changes. No evidence of bowel obstruction. Moderate colonic stool burden. ABDOMINAL WALL: Redemonstration of anterior abdominal rectus muscle diastases as well as multiple midline anterior abdominal wall hernias containing fat and mild protrusion of nonobstructive loops of small and large bowel, not significantly changed. LYMPH NODES: No lymphadenopathy. VASCULAR: Severe atherosclerotic disease with redemonstration of aortocaval by femoral bypass graft, incompletely characterize in the absence of IV contrast. Fusiform aneurysm of the abdominal aorta measuring up to 3.5 cm, stable. PELVIC VISCERA: Transverse prostate diameter 4.8 cm, unchanged. Stable postoperative scarring in the bilateral inguinal regions. OSSEOUS STRUCTURES: Stable mild multilevel vertebral body height loss for example at T10, T11 and L1. No acute or aggressive appearing osseous findings. Degenerative changes of the spine. CT/CT abdomen pelvis wo IV con IMPRESSION: 1. No acute intra-abdominal or pelvic abnormalities to explain the patient's symptoms. 2. Cholelithiasis but no evidence of acute cholecystitis. 3. Again noted findings consistent with chronic pancreatitis with parenchymal atrophy, coarse calcifications and beaded dilatation of the main pancreatic duct. This patient would benefit for further evaluation with outpatient MRI pancreatic protocol/MRCP for further characterization of the main pancreatic ductal dilatation. 4. Moderate colonic stool burden. 5. Redemonstration of multiple midline anterior abdominal wall hernias containing fat and nonobstructive loops of small and large bowel. 6. Severe atherosclerotic disease with redemonstration of an aortocaval by femoral bypass graft, incompletely characterized in the absence of IV contrast. 7. Stable fusiform aneurysm of the abdominal aorta measuring up to 3.5 cm. Based on published guidelines in J Am Radha Radiol 2013; 10(10):789-794 and J Vasc Surg. 2018; 67:2-77, the recommendation for an abdominal aortic aneurysm with diameter 3.5-3.9 cm is follow-up every 2 years.
--- NOTE | ~2023-07-28 | US_ITS ---
EXAMINATION: US VENOUS ULTRASOUND WITH DOPPLER LOWER EXTREMITY, RIGHT CLINICAL INFORMATION: Leg pain COMPARISON: Right lower extremity duplex on 06/06/2023 TECHNIQUE: Ultrasound of the deep veins is performed from the hip to the calf with compression sonography and color and pulse Doppler assessment. Spectral analysis with color-flow imaging is performed. FINDINGS: There is normal venous compression and respiratory variation and augmented flow. The visualized common femoral vein, superficial femoral vein, profunda femoral vein, popliteal vein, and the trifurcation region shows no evidence of deep venous thrombosis. The peroneal vein is not compressible with limited color flow. There is no significant popliteal fossa cyst. If the patient's symptoms persist, followup ultrasound in 5 days 7 days might be of value to exclude proximal propagation from a non-visualized calf vein. US/US venous duplex LE RT IMPRESSION: Possible thrombus within the right peroneal vein. No [id number] DVT.
[2023-07-28 12:48] VITALS: BP 122/55; BP 158/98; PULSE 61; PULSE 64; RESP 16; TEMP 36.6; O2SAT 97; O2SAT 98; BMI 31.2
--- NOTE | 2023-07-28 12:54 | PC.NURSE ---
PT EDMAR from home, pt reports he has been experiencing R thigh pain x1 month, seen here for same, reports he feels like there is a eduardo in his thigh . pt reports that he is going down hill fast . reports weight loss over the past month but also reports taking Munjaro - pts POC remains elevated despite his poor PO intake. pt also complaining of dizziness this morning, difficulty ambulating and lower back pain. he reports I feel like I have an infection stating that his labs never show the infection until it is too late . pt resting comfortably in bed, NAD, VSS
[2023-07-28 12:57] LABS: Glucose, Whole Blood 234 mg/dL (60-115)
--- NOTE | 2023-07-28 13:32 | ED_ITS ---
HPI - General Adult General Chief complaint: General Medical Stated complaint: R LEG PAIN X1 1/2 MONTHS,DIFF AMB PER EMS Time Seen by Provider: 07/28/23 13:08 History of Present Illness HPI narrative: Patient is a 72-year-old male with a history peripheral vascular disease status post fem-pop with previous complications of infection chronically on Keflex. Patient is also on Plavix. Also history of diabetes history of chronic renal disease, hyperlipidemia, NSTEMI. Presented today with having pain to the lower abdomen pain in his thigh that feels like a steel eduardo. Pain going down the leg. There is no bowel urinary incontinence. There has no focal weakness. Patient baseline is on Ultram. Feels the Ultram is not helping. No coughing or congestion or upper respiratory symptoms. No diaphoresis. Positive previous history of GI bleed. Patient is not on any NSAIDs. Denies noticing any blood in the stool. In fact patient claims his stools been very hard. Patient denies any chest pain. Related Data Home Medications Medication Instructions Recorded Confirmed ascorbic acid (vitamin C) 500 mg 500 mg PO DAILY 02/06/21 01/21/22 tablet (Vitamin C) cholecalciferol (vitamin D3) 125 125 mcg PO DAILY 02/06/21 01/21/22 mcg (5,000 unit) tablet (Vitamin D3) lactobacillus combination no.4 3 3,000 mmu cells PO DAILY 02/06/21 01/21/22 billion cell capsule (Probiotic) blood sugar diagnostic (OneTouch #10 ea 02/21/21 12/26/21 Verio test strips) blood-glucose meter (OneTouch #1 ea 02/21/21 12/26/21 Verio Reflect Meter) lancets 33 gauge (OneTouch Delica #100 ea 02/21/21 12/26/21 Plus Lancet) albuterol sulfate 90 mcg/actuation 2 puff PO Q6H PRN wheezing 08/01/21 01/21/22 aerosol inhaler rosuvastatin 20 mg tablet 20 mg PO BEDTIME 08/01/21 01/21/22 tamsulosin 0.4 mg capsule 1 cap PO BEDTIME 08/01/21 01/21/22 losartan 25 mg tablet 50 mg PO DAILY 09/26/21 01/21/22 ferrous sulfate 325 mg (65 mg 1 tab PO DAILY 12/19/21 01/21/22 iron) tablet,delayed release Previous Rx's Medication Instructions Recorded insulin syringe-needle U-100 1 mL #100 ea 03/09/20 27 gauge x 1/2 (BD Insulin Syringe) clopidogrel 75 mg tablet 75 mg PO DAILY #30 tabs 02/26/21 pregabalin 150 mg capsule 150 mg PO TID #90 caps 04/30/21 furosemide 40 mg tablet 40 mg PO DAILY #90 tabs 05/15/21 omeprazole 40 mg capsule,delayed 40 mg PO BID #60 caps 08/05/21 release pregabalin 75 mg capsule 75 mg PO DAILY #30 caps 11/26/21 pen needle, diabetic 31 gauge x #100 ea 12/17/21 5/16 (Comfort EZ Pen Rattan) insulin glargine 100 unit/mL (3 50 unit (0.5 mL) subcut BEDTIME 08/07/22 mL) subcutaneous pen (Lantus #15 mL Solostar U-100 Insulin) insulin aspart U-100 100 unit/mL 5 - 10 unit (0.05 - 0.1 mL) subcut 10/21/22 (3 mL) subcutaneous pen (Novolog TID 30 days #15 mL FlexPen U-100 Insulin aspart) blood-glucose sensor (Dexcom G6 #3 ea 05/28/23 Sensor device) blood-glucose transmitter (Dexcom #1 ea 05/28/23 G6 Transmitter device) morphine 15 mg immediate release 15 mg PO Q6H PRN pain #12 tabs 06/06/23 tablet Allergies Allergy/AdvReac Type Severity Reaction Status Date / Time No Known Allergies Allergy Unknown UNKNOWN Verified 12/06/22 10:19 Review of Systems 2 Review of Systems: Positive pain to the right leg No bowel urinary issues Yes all other systems are reviewed and are negative [facility] Past Medical History Attestation statement: The following information was validated with the patient. Source: unable to obtain Medical History HCV (hepatitis C virus) Ischemic cardiomyopathy T2DM (type 2 diabetes mellitus) Spondylosis of lumbar spine History of non-ST elevation myocardial infarction (NSTEMI) NSTEMI (non-ST elevated myocardial infarction) Post-nasal drainage Type 2 diabetes mellitus with diabetic neuropathy Thyroid nodule Lower back pain Neuropathy Chronic anemia Cough BPH (benign prostatic hyperplasia) Diabetic retinopathy PVD (peripheral vascular disease) Goiter Vitamin D deficiency HLD (hyperlipidemia) HTN (hypertension) Surgical History S/P placement of nerve stimulator H/O colonoscopy History of esophagogastroduodenoscopy (EGD) S/P aorto-bifemoral bypass surgery Hx of basal cell carcinoma excision Family History Family History Father Diabetes Mother Diabetes Leukemia Skin cancer Alzheimers disease Dementia Social History Social History Household Members: Spouse Housing: House Do you presently have visiting nurse or other home services: No Alcohol intake: never Patient Tobacco Use Status: Former Tobacco user Tobacco use type: Cigarette Cigarette Packs Per Day: 3 Years Smoked: 30 Smoked in Last 30 Days: No e-Cigarette/Vaping Use: Never Used Second Hand Smoke Exposure: No Use of substances other than those prescribed or required for medical reasons: No Advance Directives: Yes Advance Directives on File: Yes Advance Directives Date on File: 08/02/21 service: Yes Current occupational status: retired Physical Exam ED Vital Signs: Vital Signs - 24 hr 07/28/23 12:48 07/28/23 17:14 Temperature 97.9 F Pulse Rate 61 57 Respiratory Rate 16 16 Blood Pressure 122/55 L 137/49 L Pulse Oximetry 97 98 Oxygen Delivery Method Room Air Room Air BMI result Body Mass Index 31.2 Appearance: Alert. Oriented X3. No acute distress. Eyes: Pupils equal, round and reactive to light. ENT: Pharynx normal. Neck: Normal inspection. Neck supple. No lymph nodes noted. No crepitus CVS: Normal heart rate and rhythm. Pulses normal. Normal S1 and S2 Respiratory: No respiratory distress. Breath sounds normal. No Wheezing. No rales Abdomen: Soft and nontender. No rigidity. No distention. good BS x4. Positive midline scar that is well healed. Skin: Skin warm and dry. Normal skin color. Normal skin turgor. Extremities: No lower extremity edema. Neurovascular intact to all extremities. No Lacerations. No Rash. There is palpable pulses to the right leg. Sensation over the foot intact. Negative straight leg raise test. There is no gross trauma noted. Pain on movement of the leg greater than 45 degrees. Neuro: Oriented X 3. No motor deficit. No sensory deficit. Moving all extermities. No slurred speech. Medications Administered Discontinued Medications Generic Name Dose Route Start Last Admin Trade Name Scar PRN Reason Stop Dose Admin Hydromorphone HCl 0.5 mg 07/28/23 13:28 07/28/23 15:23 Hydromorphone Hcl 0.5 Mg/0.5 Ml Syringe IVPUSH 07/28/23 13:29 0.5 mg ONCE ONE Administration Protocol Hydromorphone HCl 0.5 mg 07/28/23 17:43 07/28/23 18:03 Hydromorphone Hcl 0.5 Mg/0.5 Ml Syringe IVPUSH 07/28/23 17:44 0.5 mg ONCE ONE Administration Protocol Medical Decision Making Medical Decision Making [facility] Narrative: Patient is 72 years old presents today with having lower abdominal pain along with having pain going down his right leg. Has a history of peripheral vascular disease. Has a history of GI bleed currently is on Plavix for previous stroke/peripheral vascular disease. Patient not on anticoagulation at this point. Multitude of medical issues in the past including diabetes peripheral vascular disease status post fem-pop history of aneurysm in the past history of diabetes. The ultrasound of the lower extremity showed no above the knee DVT. There is a question peroneal vein noncompressibility. Question secondary to a clot. Will get patient an ultrasound in 1 week. Explained to patient risks benefits roberto at this point did not feel patient warrants anticoagulation as he had a previous history of GI bleed. Patient's CT scan of the abdomen showed no acute evidence of obstruction abscess perforation. Patient has a fusiform aneurysm which is approximately the same size. There has no evidence of leak. Patient's arterial Doppler showed no evidence for ischemic limb. Patient is in stable condition the finding was discussed with patient's daughter, patient's . Pain medication was given with good relief of symptoms. Explained to patient we will not give additional narcotics as he is already having constipation. I discussed with patient about the CT and ultrasound finding. Will try to arrange for patient to receive ultrasound on outpatient basis. Differential Diagnosis Differential Diagnoses: The differential diagnosis associated with the presentation includes Cauda equina, peripheral vascular disease Admission/Observation Consideration of admission/observation: Escalation of care including admission/observation considered Lab Data [facility] Lab Attestation statement: I reviewed the patient's lab results. 07/28/23 14:00 07/28/23 14:00 Labs: Lab Results 07/28/23 07/28/23 07/28/23 Range/Units 12:53 14:00 16:21 WBC 10.6 (4.8-10.8) X10*3/uL RBC 4.45 L (4.60-5.80) X10*6/uL Hgb 13.4 L (14.0-18.0) g/dl Hct 38.4 L (42.0-52.0) % MCV 86.3 (80.0-98.0) fL MCH 30.1 (27.0-33.0) pg MCHC 34.9 (31.0-36.0) g/dl RDW 13.0 (11.0-16.0) % Plt Count 206 (160-400) X10*3/uL MPV 10.1 (9.4-12.4) fL Immature Gran % (Auto) 0.5 H (0.0-0.4) % Neut % (Auto) 56.9 (45-73) % Lymph % (Auto) 34.9 (20-40) % [place] % (Auto) 6.1 (2-11) % Eos % (Auto) 1.1 (0-4) % Baso % (Auto) 0.5 (0-2) % Lymph # (Auto) 3.7 (1.2-4.9) X10*3/uL [place] # (Auto) 0.7 (0.1-1.2) X10*3/uL Eos # (Auto) 0.1 (0.0-0.4) X10*3/uL Baso # (Auto) 0.1 (0.0-0.2) X10*3/uL Abs Immat Gran (auto) 0.05 H (0.00-0.03) X10*3/uL Absolute Neuts (auto) 6.0 (2.0-8.3) x10*3/uL Absolute Nucleated RBC 0.000 (0.0-0.012) X10*3/uL Nucleated RBC % (auto) 0.0 (0.0-0.2) /100WBC Sodium 133 L (135-145) mmol/L Potassium 4.8 (3.3-5.1) mmol/L Chloride 102 (96-108) mmol/L Carbon Dioxide 22 (22-29) mmol/L Anion Gap 14 (12-20) BUN 27 H (9-16) mg/dL Creatinine 1.40 (0.5-1.4) mg/dL Estim Creat Clear Calc 54.5 Estimated GFR 50 POC Glucose 234 H (60-115) mg/dL Random Glucose 231 H (60-115) mg/dL Calcium 9.2 (8.4-10.2) mg/dL Total Bilirubin 0.5 (0.0-1.0) mg/dL Direct Bilirubin 0.2 (0.0-0.5) mg/dL AST 13 (5-37) U/L ALT 12 (0-40) U/L Alkaline Phosphatase 55 (39-117) U/L Total Protein 7.0 (6.5-8.0) g/dL Albumin 4.2 (3.5-5.0) g/dL Lipase 5 L (8-78) U/L Urine Color Yellow Urine Appearance Clear Urine pH 5.5 (5.0-9.0) Ur Specific Daw[place] >= 1.030 H (1.005-1.025) Urine Protein Negative (Neg-Trace) mg/dL Urine Glucose (UA) >=1000 H (Negative) mg/dL Urine Ketones 15 (Negative) mg/dL Urine Blood Negative (Negative) Urine Nitrite Negative (Negative) Ur Leukocyte Esterase Negative (Negative) Urine RBC 0-2 (0-2) /HPF Urine WBC 0-5 (0-5) /HPF Ur Squamous Epith Cells 0-2 (0-2) /HPF Urine Bacteria None Seen (None Seen) Hyaline Casts 0-2 (0-2) /LPF Radiology Impression Discussion of test interpretation with radiology: I have reviewed the radiologist's reading. Independent Historian Clinical information obtained from an independent historian. History obtained from or confirmed by: Spouse External Record Review External record reviewed: Inpatient record Prescription Management I considered prescription management with: Pain Medication No additional pain medication will be given. No anticoagulation given. Chronic Conditions Patient?s care impacted by: Diabetes and Hypertension Peripheral vascular disease, Discharge Plan Discharge Clinical Impression: Lower back pain, Peripheral vascular disease Patient Disposition: Home, Self-Care Instructions: Acute Low Back Pain (ED), Deep Vein Thrombosis (ED) Additional Instructions: You may have a blood clot below the right knee. Please get ultrasound done in 1 week. Worsened chest pain shortness of breath please return to the emergency department immediately. Risk of blood clot exists. Prescriptions: No Action (DME) insulin syringe-needle U-100 [BD Insulin Syringe] 1 mL 27 gauge x 1/2 syringe See Rx Instructions .ROUTE .MEDSUPPLY Qty: 100 0RF Rx Instructions: As directed clopidogrel 75 mg tablet 75 mg PO DAILY Qty: 30 1RF Hold Instructions: Resume on 12/28/21. restart in 3 days pregabalin 150 mg capsule 150 mg PO TID Qty: 90 3RF furosemide 40 mg tablet 40 mg PO DAILY Qty: 90 3RF (DME) pen needle, diabetic [Comfort EZ Pen Rattan] 31 gauge x 5/16 needle See Rx Instructions .ROUTE .MEDSUPPLY Qty: 100 11RF Rx Instructions: use 1 needle 5 times day day for insulin injections insulin glargine [Lantus Solostar U-100 Insulin] 100 unit/mL (3 mL) insulin pen 50 unit subcut BEDTIME Qty: 15 1RF insulin aspart U-100 [Novolog FlexPen U-100 Insulin] 100 unit/mL (3 mL) insulin pen 5 - 10 unit subcut TID 30 Days Qty: 15 11RF (DME) Dexcom G6 Transmitter Device See Rx Instructions .ROUTE .MEDSUPPLY Qty: 1 11RF Rx Instructions: As directed (DME) Dexcom G6 Sensor Device See Rx Instructions .Route Qty: 3 4RF Rx Instructions: As directed change every 10 days ascorbic acid (vitamin C) [Vitamin C] 500 mg Tablet 500 mg PO DAILY cholecalciferol (vitamin D3) [Vitamin D3] 125 mcg (5,000 unit) Tablet 125 mcg PO DAILY Probiotic 3 billion cell Capsule 3,000 mmu cells PO DAILY tamsulosin 0.4 mg capsule 1 cap PO BEDTIME albuterol sulfate 90 mcg/actuation HFA aerosol inhaler 2 puff PO Q6H PRN (Reason: wheezing) rosuvastatin 20 mg tablet 20 mg PO BEDTIME omeprazole 40 mg capsule,delayed release(DR/EC) 40 mg PO BID Qty: 60 0RF ferrous sulfate 325 mg (65 mg iron) tablet,delayed release (DR/EC) 1 tab PO DAILY morphine 15 mg tablet 15 mg PO Q6H PRN (Reason: pain) Qty: 12 0RF Rx Instructions: partial fill okay; Partial Fill upon patient request. (DME) lancets [DesallTouch Delica Plus Lancet] 33 gauge misc See Rx Instructions topical QID Qty: 100 Rx Instructions: As directed (DME) blood-glucose meter [DesallTouch Verio Reflect Meter] Misc See Rx Instructions .ROUTE .MEDSUPPLY Qty: 1 Rx Instructions: As directed (DME) OneTouch Verio test strips Strip See Rx Instructions Not Applicable QID Qty: 10 Rx Instructions: As directed losartan 25 mg tablet 50 mg PO DAILY pregabalin 75 mg capsule 75 mg PO DAILY Qty: 30 0RF Rx Instructions: Replace afternoon dose with 75mg capsule; continue previous script for morning and evening
[2023-07-28 14:07] LABS: MANUAL DIFF FLAG NO
[2023-07-28 14:09] LABS: Basophils Absolute Auto 0.1 X10*3/uL (0.0-0.2); Basophils Percent Auto 0.5 % (0-2); Eosinophils Absolute Auto 0.1 X10*3/uL (0.0-0.4); Eosinophils Percent Auto 1.1 % (0-4); Hematocrit 38.4 % (42.0-52.0); Hemoglobin 13.4 g/dl (14.0-18.0); Imm Gran Abs Auto 0.05 X10*3/uL (0.00-0.03); Imm Gran Pct Auto 0.5 % (0.0-0.4); Lymphocytes Absolute Auto 3.7 X10*3/uL (1.2-4.9); Lymphocytes Percent Auto 34.9 % (20-40); Mean Corpuscular HGB Conc 34.9 g/dl (31.0-36.0); Mean Corpuscular Hemoglobin 30.1 pg (27.0-33.0); Mean Corpuscular Volume 86.3 fL (80.0-98.0); Mean Platelet Volume 10.1 fL (9.4-12.4); Monocytes Absolute Auto 0.7 X10*3/uL (0.1-1.2); Monocytes Percent Auto 6.1 % (2-11); Neutrophils Percent Auto 56.9 % (45-73); Platelet Count 206 X10*3/uL (160-400); Red Blood Count 4.45 X10*6/uL (4.60-5.80); White Blood Count 10.6 X10*3/uL (4.8-10.8)
[2023-07-28 14:23] LABS: Alanine Aminotransferase 12 U/L (0-40); Albumin Level 4.2 g/dL (3.5-5.0); Alkaline Phosphatase 55 U/L (39-117); Anion Gap 14 (12-20); Aspartate Amino Transferase 13 U/L (5-37); Bilirubin Direct 0.2 mg/dL (0.0-0.5); Bilirubin Total 0.5 mg/dL (0.0-1.0); Blood Urea Nitrogen 27 mg/dL (9-16); Calcium 9.2 mg/dL (8.4-10.2); Carbon Dioxide 22 mmol/L (22-29); Chloride 102 mmol/L (96-108); Creatinine Clr Calc Pharmacy 54.5; Estimated Glomerular Filt Rate 50; Glucose Random 231 mg/dL (60-115); Lipase 5 U/L (8-78); Potassium 4.8 mmol/L (3.3-5.1); Sodium 133 mmol/L (135-145)
[2023-07-28] MEDS: HYDROmorphone HCl 0.5 MG/0.5 ML SYRINGE IVPUSH ×2 (15:23→18:03)
[2023-07-28 16:35] LABS: Appearance Urine Clear; Color Urine Yellow; Glucose Urine UA >=1000 mg/dL (Negative); Leukocyte Esterase Urine Negative (Negative); Nitrite Urine Negative (Negative); PH 5.5 (5.0-9.0); Specific Gravity - Urine >= 1.030 (1.005-1.025); UMIC TRIGGER UACC YES; Urine Blood Negative (Negative); Urine Ketones 15 mg/dL (Negative); Urine Protein Negative (Neg-Trace)
[2023-07-28 16:39] LABS: Bacteria Urine None Seen (None Seen); Hyaline Casts Urine 0-2 /LPF (0-2); RBC Urine 0-2 /HPF (0-2); Squamous Epithelial Cell Urine 0-2 /HPF (0-2); WBC Urine 0-5 /HPF (0-5)
[2023-07-28 17:14] VITALS: BP 137/49; PULSE 57; RESP 16; O2SAT 98
--- NOTE | 2023-07-28 19:10 | PC.NURSE ---
assumed care of pt at 1900
== END 2023-07-28 20:29 | disposition home or self-care (01) ==
PROVIDERS: Emergency Provider Emergency Medicine Emergency Medical Services; PCP Registered Nurse
DX: I73.9 Peripheral vascular disease, unspecified (principal); M54.50 Low back pain, unspecified; E11.22 Type 2 diabetes mellitus with diabetic chronic kidney disease; I12.9 Hypertensive chronic kidney disease with stage 1 through stage 4 chronic kidney disease, or unspecified chronic kidney disease; N18.9 Chronic kidney disease, unspecified; I25.2 Old myocardial infarction; Z86.73 Personal history of transient ischemic attack (TIA), and cerebral infarction without residual deficits; Z79.02 Long term (current) use of antithrombotics/antiplatelets
CPT/HCPCS: 36415; 74176; 80048; 80076; 81001; 82947; 83690; 85025; 93926; 93971; 96374; 96375; 99284; J1170

== ENCOUNTER 2023-08-25 14:55 | Outpatient (AMB) | payer MEDICARE, SELFPAY ==
--- NOTE | 2023-08-25 14:57 | A.OFFVIS_ITS ---
Intake Vital Signs 08/25/23 14:58 Height 5 ft 10 in Weight 234 lb 5.622 oz BMI 33.6 BP 140/62 H Blood Pressure Location Lt brachial Position Sitting Pulse 61 Pulse Source Pulse Oximeter Intake Visit Reasons: DM T2-confirmed Intake Note: Patient present today to follow up on Type 2 Diabetes Mellitus. Last Diabetic Eye exam: 04/10/23 Last Podiatry Visit: Doesn't have one. Random Glucose: 276 mg/dl HgA1C: 9.8% Structural Worker Required: No Accompanied by: Spouse Allergies adhesive tape Allergy (Mild, Verified 08/25/23 15:03) Redness of Skin Medication List - Last Reconciled 08/25/23 by Yoandy Rubio MD albuterol sulfate 90 mcg/actuation 2 puffs PO Q6H PRN ascorbic acid (vitamin C) (Vitamin C) 500 mg PO DAILY blood sugar diagnostic (Whereoscopeuch Verio test strips) As directed blood-glucose meter ([employer] Verio Reflect Meter) As directed blood-glucose sensor (Dexcom G6 Sensor device) As directed change every 10 days blood-glucose transmitter (Dexcom G6 Transmitter device) As directed cephalexin 500 mg PO QID cholecalciferol (vitamin D3) (Vitamin D3) 125 mcg PO DAILY clopidogrel 75 mg PO DAILY ferrous sulfate 1 tab PO DAILY furosemide 40 mg PO DAILY insulin aspart U-100 (Novolog FlexPen U-100 Insulin aspart) 5 - 10 units (0.05 - 0.1 mL) subcut TID 30 days insulin glargine (Lantus Solostar U-100 Insulin) 50 units (0.5 mL) subcut BEDTIME insulin syringe-needle U-100 (BD Insulin Syringe) As directed lactobacillus combination no.4 (Probiotic) 3,000 mmu cells PO DAILY lancets (Whereoscopeuch Delica Plus Lancet) As directed losartan 50 mg PO DAILY nitroglycerin mg sublingual omeprazole 40 mg PO BID pen needle, diabetic (Comfort EZ Pen [place]) use 1 needle 5 times day day for insulin injections rosuvastatin 20 mg PO BEDTIME tamsulosin 1 cap PO BEDTIME HPI HPI Comments History of Present Illness Details 72 YO M with PMHx T2DM, HTN, HLD who is seen in F/U for T2DM. The patient last saw Dr. Carney on 12/26/2021 Initially diagnosed with T2DM many years ago, he does not recall when. Was initially started on treatment with Metformin and Glipizide. He hospitalized with a L groin abscess with staph infection. During that hospitalization his Metformin was stopped. His current regimen is not taking Lantus 50 units daily andnovolog 24 units . He only uses his Humalog after eating if his sugar is high. He typically does not use his Humalog at all. He was prescribed Trulicity at his last visit, but this has been cost prohibitive for him and he has not been using it consistently.Was prescribed Mounjaro - 5 mg reduced to 2.5 mg . Jardiance 25 mg QD He was previously very well controlled off most insulin on a ketogenic diet, Has DEXCOM G6. 14 days of data downloaded and reviewed from. 08/12/23- 08/25/23 is average sugar is 277 with an SD of 58 . He is at goal 8% of the time, above goal 92% of the time, and below goal <1% of the time. Sugars are consistently high overnight. Denies any recent low sugars. Has hypoglycemia awareness. Treats lows with rapid sugar. Has DEXCOM to monitor his sugars after. Family history of T2DM in his Father. Has eyes checked yearly, last eye exam 04/2023 denies retinopathy. Denies Neuropathy, does not see Podiatry. Nephropathy, on Losartan 50 mg PO daily, UAC 60.6 11/03/2020. Has HLD, on Rosuvastatin 20 mg PO daily. LDL 56 02/07/2021. Denies CAD. Diet: Knows how to count carbs. Labs: Laboratory Tests 09/29/20 11/03/20 11/03/20 21:24 11:50 11:50 Creatinine 1.20 Estimated GFR 60 Hemoglobin A1c % 6.2 LDL Cholesterol Di rect 113 H LDL Cholesterol, C alc 25-OH Vitamin D To chris Microalb/Creat Rat io 11/03/20 11/03/20 11/03/20 11:50 11:50 Unknown Creatinine 1.06 Estimated GFR > 60 Hemoglobin A1c % LDL Cholesterol Di rect LDL Cholesterol, C alc 25-OH Vitamin D To chris 31.6 Microalb/Creat Rat io 60.6 02/07/21 08/05/21 09/26/21 04:56 06:41 08:16 Creatinine 1.11 1.34 1.41 H Estimated GFR > 60 52 49 Hemoglobin A1c % LDL Cholesterol Di rect LDL Cholesterol, C alc 56 25-OH Vitamin D To chris Microalb/Creat Rat io 09/26/21 08:16 Creatinine Estimated GFR Hemoglobin A1c % 8.3 LDL Cholesterol Di rect LDL Cholesterol, C alc 25-OH Vitamin D To chris Microalb/Creat Rat io PFSH Medical History HCV (hepatitis C virus) Ischemic cardiomyopathy T2DM (type 2 diabetes mellitus) Spondylosis of lumbar spine History of non-ST elevation myocardial infarction (NSTEMI) NSTEMI (non-ST elevated myocardial infarction) Post-nasal drainage Type 2 diabetes mellitus with diabetic neuropathy Thyroid nodule Lower back pain Neuropathy Chronic anemia Cough BPH (benign prostatic hyperplasia) Diabetic retinopathy PVD (peripheral vascular disease) Goiter Vitamin D deficiency HLD (hyperlipidemia) HTN (hypertension) Surgical History S/P placement of nerve stimulator H/O colonoscopy History of esophagogastroduodenoscopy (EGD) S/P aorto-bifemoral bypass surgery Hx of basal cell carcinoma excision Family History Father Diabetes Mother Diabetes Leukemia Skin cancer Alzheimers disease Dementia Social History Household Members: Spouse Housing: House Do you presently have visiting nurse or other home services: No Alcohol intake: never Patient Tobacco Use Status: Former Tobacco user Tobacco use type: Cigarette Cigarette Packs Per Day: 3 Years Smoked: 30 e-Cigarette/Vaping Use: Never Used Second Hand Smoke Exposure: No Advance Directives Date on File: 08/02/21 service: Yes Current occupational status: retired Physical Exam Vital Signs: Last Vital Signs Pulse 61 08/25/23 14:58 BP 140/62 H 08/25/23 14:58 BMI result Body Mass Index 33.6 Absence of Cushingoid features. Absence of acromegalic features. Neck exam reveals nl size thyroid about 15 gms. No thyroid nodules palpable. L carotid bruits present. Lungs CTA. Heart S1 S2, Reg R/R. No M/R/ G. Skin exam reveals absence of vitiligo or acanthosis nigricans. Abdominal exam reveals Soft NT/ND with NA BS. No organomegaly present. Neck Other: . Extrem Other: Visual exam of foot performed. No ulcerations or open lesions. No onchomycosis, no callouses.Pulses 2 + distally Sensation intact to monofilament exam. Vibratory sensation sensed is idecreased with 128 Hz tuning fork Results AMB Hemoglobin A1c AMB Hemoglobin A1c 9.8 % Last Edit by EVERARDO Nair on 08/25/23 15:21 Results Reviewed Results Reviewed: Laboratory Last Values Glucose (Clinic) 276 mg/dL (60-115) H 08/25/23 15:09 Assessment & Plan Assessment & Plan (1) Type 2 diabetes mellitus with diabetic neuropathy: Code(s): E11.40 - Type 2 diabetes mellitus with diabetic neuropathy, unspecified Plan: This is a 72-year-old white male with a history of type 2 diabetes being treated with basal and correction insulin poor glycemic control and known microvascular complications namely neuropathy and retinopathy. Plan is to talk to the patient about potentially initiating Mounjaro 2,5 mg Qw kly as well as Lantus 50 units . Will talk to patient about diabetic Education appointment as well as nutritional appointment. Will check lipid profile microalbumin to creatinine ratio. Went over the relationship a poor glycemic control to development of progression of complications. Was referred back to his primary care provider regarding the left carotid bruit. Orders: Orders Microalbumin, Random (w Creat) Today E11.40 - Type 2 diabetes mellitus with diabetic neuropathy, unspecified AMB Hemoglobin A1c Today E11.40 - Type 2 diabetes mellitus with diabetic neuropathy, unspecified, E11.9 - Type 2 diabetes mellitus without complications, Z13.9 - Encounter for screening, unspecified Lipid Panel Today E11.40 - Type 2 diabetes mellitus with diabetic neuropathy, unspecified Referrals Nutrition/Dietitian Referral E11.40 - Type 2 diabetes mellitus with diabetic neuropathy, unspecified Diabetes Education Referral E11.40 - Type 2 diabetes mellitus with diabetic neuropathy, unspecified Medications: New tirzepatide (Mounjaro) 2.5 mg (0.5 mL) subcut QWEEK 4 weeks 2 mL 5RF blood-glucose sensor (Dexcom G7 Sensor device) As directed change every 10 days 3 ea 5RF Refilled insulin glargine (Lantus Solostar U-100 Insulin) 50 units (0.5 mL) subcut BEDTIME 15 mL 1RF E11.40 - Type 2 diabetes mellitus with diabetic neuropathy, unspecified Discontinued blood-glucose sensor (Dexcom G6 Sensor device) Discontinued Reason: Doctor's Order As directed change every 10 days 3 ea 4RF blood-glucose transmitter (Dexcom G6 Transmitter device) Discontinued Reason: Doctor's Order As directed 1 ea 11RF Coding Level of Care Code Est Pt Level 4 (25991) Diagnoses Type 2 diabetes mellitus with diabetic neuropathy E11.40
[2023-08-25 14:58] VITALS: BP 140/62; PULSE 61; BMI 33.6
[2023-08-25 15:13] LABS: Glucose, Whole Blood 276 mg/dL (60-115)
== END 2023-08-25 15:43 | disposition home or self-care (01) ==
PROVIDERS: PCP Internal Medicine; Visit Provider Internal Medicine Endocrinology, Diabetes & Metabolism
DX: E11.40 Type 2 diabetes mellitus with diabetic neuropathy, unspecified (principal)
CPT/HCPCS: 99214

== ENCOUNTER → 2023-08-25 14:55 | Outpatient (BNVA) | payer MEDICARE, SELFPAY | PROVIDERS: PCP Internal Medicine; Visit Provider Internal Medicine Endocrinology, Diabetes & Metabolism | DX: E11.40 Type 2 diabetes mellitus with diabetic neuropathy, unspecified (principal); Z79.4 Long term (current) use of insulin; Z79.84 Long term (current) use of oral hypoglycemic drugs | CPT/HCPCS: 82947; 83036; 99212 ==

== ENCOUNTER 2023-09-01 13:07 | Outpatient (AMB) | payer MEDICARE, SELFPAY ==
--- NOTE | 2023-09-01 13:36 | MHC.AMDMED ---
Intake Intake Visit Reasons: DM Belt Sander Required: No Accompanied by: Self / Same As Patient Allergies adhesive tape Allergy (Mild, Verified 08/25/23 15:03) Redness of Skin HPI Comprehensive Diabetes Asmnt Most Recent Diabetes Results: Hemoglobin A1c 10.9 % 01/17/20 Microalb/Creat Ratio 60.6 ug/mg cr 11/03/20 Cholesterol 104 mg/dL 02/07/21 HDL Cholesterol 20 mg/dL 02/07/21 Triglycerides 142 mg/dL 02/07/21 Creatinine 1.40 mg/dL (0.5-1.4) 07/28/23 Blood Urea Nitrogen 27 mg/dL (9-16) H 07/28/23 Sodium 133 mmol/L (135-145) L 07/28/23 Potassium 4.8 mmol/L (3.3-5.1) 07/28/23 Chloride 102 mmol/L (96-108) 07/28/23 Carbon Dioxide 22 mmol/L (22-29) 07/28/23 Calcium 9.2 mg/dL (8.4-10.2) 07/28/23 AST 13 U/L (5-37) 07/28/23 ALT 12 U/L (0-40) 07/28/23 Total Protein 7.0 g/dL (6.5-8.0) 07/28/23 Albumin 4.2 g/dL (3.5-5.0) 07/28/23 [facility] Medical History HCV (hepatitis C virus) Ischemic cardiomyopathy T2DM (type 2 diabetes mellitus) Spondylosis of lumbar spine History of non-ST elevation myocardial infarction (NSTEMI) NSTEMI (non-ST elevated myocardial infarction) Post-nasal drainage Type 2 diabetes mellitus with diabetic neuropathy Thyroid nodule Lower back pain Neuropathy Chronic anemia Cough BPH (benign prostatic hyperplasia) Diabetic retinopathy PVD (peripheral vascular disease) Goiter Vitamin D deficiency HLD (hyperlipidemia) HTN (hypertension) Surgical History S/P placement of nerve stimulator H/O colonoscopy History of esophagogastroduodenoscopy (EGD) S/P aorto-bifemoral bypass surgery Hx of basal cell carcinoma excision Family History Father Diabetes Mother Diabetes Leukemia Skin cancer Alzheimers disease Dementia Social History Household Members: Spouse Housing: House Do you presently have visiting nurse or other home services: No Alcohol intake: never Patient Tobacco Use Status: Former Tobacco user Tobacco use type: Cigarette Cigarette Packs Per Day: 3 Years Smoked: 30 e-Cigarette/Vaping Use: Never Used Second Hand Smoke Exposure: No Advance Directives Date on File: 08/02/21 service: Yes Current occupational status: retired Assessment & Plan Assessment & Plan (1) T2DM (type 2 diabetes mellitus): Code(s): E11.9 - Type 2 diabetes mellitus without complications Qualifiers: Diabetes mellitus extermination supervisor insulin use: with usp use Diabetes mellitus complication status: with hyperglycemia Qualified Code(s): E11.65 - Type 2 diabetes mellitus with hyperglycemia; Z79.4 - [facility] (current) use of insulin Plan: Learning objectives: The patient was provided with verbal and written education on the following topics as outlined below. The patient met all learning objectives and was able to verbalize understanding and provide teach back of education topics discussed . The patient was provided with the opportunity to ask questions and all questions were answered. 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 Rubio on 08/25/23, A1c at that visit 9.8% Patient reports he currently restarted Lantus 30 units daily, although was prescribed 50 units daily Has not restarted Mounjaro 2.5 mg Also takes NovoLog 24 units before meals, reports he frequently forgets mealtime insulin. Only eats 1-2 meals day, but snacks on high carb snacks in the evenings after supper. What is Diabetes? Pathophysiology How the body produces and uses insulin Identify type of DM Risk factors Signs of Diabetes Brief overview of Diabetes Management Monitoring blood sugar Following a meal plan Regular exercise Maintaining a healthy weight Taking medication as needed Members of the care team (PCP, RN, MA, RD, CDE, registered phlebotomist part time) Blood glucose monitoring When/how often to test Target blood sugar ranges Patient using Dexcom G6 Average glucose 261 mg/dL for the last 14 days 89% above target 11% at target 0% below target Introduction to Nutrition Importance of healthy diet in managing DM Diet is personalized to individual preference Review patient?s regular diet/food preferences Who prepares meals/does food shopping/ Dining out?/ Barriers? How diet effects glucose Eating 3 balanced meals a day with small, healthy snacks between meals Review food groups Carbohydrates: What is a carbohydrate/Which food/food groups are considered carbohydrates Effect of carbohydrates on blood glucose Portion sizes Reading food labels Basic carb counting (if applicable per nursing assessment) Plate method Meal planning Recommendations: Follow plate method, consistent carbs and read nutritional labels. Smart Goal: Keep carbohydrate portions at meals from 45-60 g per meal Educational Materials: The patient was provided with the following written educational materials: Planning Healthy Meals Handout Patient Response to instructions: Comprehension of Instructions: Fair Readiness to make changes: Contemplation How confident they feel about making changes: Poor Patient Instructions: Include regular daily activity. ADA recommends 30 minutes of exercise 5 days a week. Weight loss talk to PCP or Fabrication Inspector before starting new plan. Test blood sugar as directed; Fasting and 2hpp largest meal. Watch trends in results. Utilize results and to assess how food, physical activity and medications affect blood sugar results. Bring glucometer or CGM to next visit. Be knowledgeable about diabetes medication, its action, side effects, efficacy, toxicity, prescribed dosage, appropriate timing and frequency of administration, effect of missed and delayed doses and instructions for storage, travel and safety. Problem solving techniques to monitor hypo/hyperglycemia episodes and treatments. Reduce risk reduction behaviors, smoking cessation, regular eye, foot and dental examinations. Coding Level of Care Code Est Pt Level 1 (33452) Diagnoses Type 2 diabetes mellitus with hyperglycemia, with long-term current use of insulin E11.65; Z79.4 Diabetes mellitus extermination supervisor insulin use: with extermination supervisor use Diabetes mellitus complication status: with hyperglycemia
== END 2023-09-01 14:19 | disposition home or self-care (01) ==
PROVIDERS: PCP Registered Nurse; Visit Provider Registered Nurse Diabetes Educator
DX: E11.65 Type 2 diabetes mellitus with hyperglycemia (principal); Z79.4 Long term (current) use of insulin

== ENCOUNTER → 2023-09-01 13:07 | Outpatient (BNVA) | payer MEDICARE, SELFPAY | PROVIDERS: PCP Registered Nurse; Visit Provider Registered Nurse Diabetes Educator | DX: E11.65 Type 2 diabetes mellitus with hyperglycemia (principal); Z71.89 Other specified counseling; Z79.4 Long term (current) use of insulin | CPT/HCPCS: 99211 ==

== ENCOUNTER 2023-09-09 10:59 | Outpatient (AMB) | payer MEDICARE, SELFPAY ==
--- NOTE | 2023-09-09 11:02 | A.OFFVIS_ITS ---
Intake VS Expanded 09/09/23 11:04 09/11/23 20:56 Height 5 ft 10 in 5 ft 10 in Weight 238 lb 5.115 oz 238 lb BMI 34.2 34.1 Intake Visit Reasons: DM/LVM Allergies adhesive tape Allergy (Mild, Verified 08/25/23 15:03) Redness of Skin HPI Nutrition Presentation Details Patient presents for initial medical nutrition therapy visit for T2DM . The patient was referred by Dr. Rubio, park worker Who prepares the meals: self, fam member, eating out Dietary restrictions currently following: none currently, tried atkins in the past Perceived diet modification challenges? appetite for sweets Patient reports meals are as follow : Regularly Skips Never has Breakfast: oatmeal, coffee and cream Regularly Skips Never has Lunch: ? skips Regularly Skips Never has Dinner: meat (pork chops/fish, mashed ptoato , mac and cheese , coffee, zero power alexandra snack choices and time: snack popcorn + Fried food/wk: 2 x/wk eating out /wk and choices: 2 -3 x//wk variety Dairy serving/d :2-3 serving/d Fruit servings/d : 2/d vegetable servings: 2-3 /serving/wk protein serving/d : 12 -15 oz/d Beverages of choice:water, diet soda, juices physical activity: daily life alcohol intake: denies smoking: denies reports taking iron supplement FBC-Aqprnoz-Wp.Jeor Equation Height 5 ft 10 in Weight 238 lb Resting Metabolic Rate 1825.72 Calculated Activity Level Sedentary Calories Needed to Maintain Weight 2190.86 Diagnosis Nutrition problem #1 excessive energy intake As related to (etiology) #1 diagnosis As evidenced by (sign/symptom) #1 noncompliance to diet/hx Most Recent Diabetes Results: Creatinine 1.40 mg/dL (0.5-1.4) 07/28/23 Blood Urea Nitrogen 27 mg/dL (9-16) H 07/28/23 Sodium 133 mmol/L (135-145) L 07/28/23 Potassium 4.8 mmol/L (3.3-5.1) 07/28/23 Chloride 102 mmol/L (96-108) 07/28/23 Carbon Dioxide 22 mmol/L (22-29) 07/28/23 Calcium 9.2 mg/dL (8.4-10.2) 07/28/23 AST 13 U/L (5-37) 07/28/23 ALT 12 U/L (0-40) 07/28/23 Total Protein 7.0 g/dL (6.5-8.0) 07/28/23 Albumin 4.2 g/dL (3.5-5.0) 07/28/23 [facility] Medical History HCV (hepatitis C virus) Ischemic cardiomyopathy T2DM (type 2 diabetes mellitus) Spondylosis of lumbar spine History of non-ST elevation myocardial infarction (NSTEMI) NSTEMI (non-ST elevated myocardial infarction) Post-nasal drainage Type 2 diabetes mellitus with diabetic neuropathy Thyroid nodule Lower back pain Neuropathy Chronic anemia Cough BPH (benign prostatic hyperplasia) Diabetic retinopathy PVD (peripheral vascular disease) Goiter Vitamin D deficiency HLD (hyperlipidemia) HTN (hypertension) Surgical History S/P placement of nerve stimulator H/O colonoscopy History of esophagogastroduodenoscopy (EGD) S/P aorto-bifemoral bypass surgery Hx of basal cell carcinoma excision Family History Father Diabetes Mother Diabetes Leukemia Skin cancer Alzheimers disease Dementia Social History Household Members: Spouse Housing: House Do you presently have visiting nurse or other home services: No Alcohol intake: never Patient Tobacco Use Status: Former Tobacco user Tobacco use type: Cigarette Cigarette Packs Per Day: 3 Years Smoked: 30 e-Cigarette/Vaping Use: Never Used Second Hand Smoke Exposure: No Advance Directives Date on File: 08/02/21 service: Yes Current occupational status: retired Assessment & Plan Assessment & Plan (1) T2DM (type 2 diabetes mellitus): Code(s): E11.9 - Type 2 diabetes mellitus without complications Qualifiers: Diabetes mellitus terminal computer operator insulin use: with longterm use Diabetes mellitus complication status: with hyperglycemia Qualified Code(s): E11.65 - Type 2 diabetes mellitus with hyperglycemia; Z79.4 - terminal computer operator (current) use of insulin Plan: Wt: 108 Kg ( 09/2023 ) Est kcal needs as per MSJ: 2200 (40% carb, 30% protein/fat) Est fluid needs as per 25-30 ml/d: 3200 Est prot per day as per 1 g/kg bw: 108 Recommend fiber intake : 8-10 g per day and gradually increase to 25-28 g per day for women and 35-38 g for men or as tolerated Recommend sodium intake per day : less than 2000 mg Educated patient on: ( R = reviewed V = verbalizes understanding N/R = needs review N/A = not applicable * Food sources of carbohydrate, adequate serving sizes and its role in various health conditions: R * Differences between complex carbohydrates a simple carbohydrates, role of fiber in diet: R * Lean protein sources of foods: R * Differences between types of fats and role in diet (mono on saturated fat fatty acids, saturated fatty acids, trans fats): R low fat * Food sources of sodium in salt and healthy modifications for heart health in kidney health: NR * Vitamins and minerals: N/R * Healthy plate method concept: R * Physical activity: Benefits a precaution: R * Hypoglycemia protocol (rule of 15): N/R * Dietary prevention of Hyperglycemia: R Patient Instructions: Follow healthy plate method , reducing total carb at meal to 60-80 g following healthy plate method Reduce carbs to 30 g as bedtime snack - see list of ideas Coding Level of Care Code Nutr Indiv Intake (82091) Diagnoses Type 2 diabetes mellitus with hyperglycemia, with long-term current use of insulin E11.65; Z79.4 Diabetes mellitus terminal computer operator insulin use: with longterm use Diabetes mellitus complication status: with hyperglycemia Time Spent (min) 30
[2023-09-09 11:04] VITALS: BMI 34.2
[2023-09-11 20:56] VITALS: BMI 34.1
== END 2023-09-09 11:48 | disposition home or self-care (01) ==
PROVIDERS: PCP Registered Nurse; Visit Provider Dietitian, Registered
DX: E11.65 Type 2 diabetes mellitus with hyperglycemia (principal); Z79.4 Long term (current) use of insulin

== ENCOUNTER → 2023-09-09 10:59 | Outpatient (BNVA) | payer MEDICARE, SELFPAY | PROVIDERS: PCP Registered Nurse; Visit Provider Dietitian, Registered | DX: E11.65 Type 2 diabetes mellitus with hyperglycemia (principal); Z79.4 Long term (current) use of insulin | CPT/HCPCS: 97802 ==

== ENCOUNTER 2023-10-21 11:01 | Outpatient (AMB) | payer MEDICARE, SELFPAY ==
--- NOTE | 2023-10-21 11:04 | A.OFFVIS_ITS ---
VS Expanded 10/21/23 11:06 Height 5 ft 10 in Weight 236 lb 5.369 oz BMI 33.9 Intake Visit Reasons: T2DM/CONFIRMED Allergies adhesive tape Allergy (Mild, Verified 08/25/23 15:03) Redness of Skin Nutrition Presentation Details: Pt presents for MNT f/u for T2DM Pt reports monitoring blood glucose with freestyle marge 3 and this is going well, he reports reducing on those foods that are spiking his blood glucose. Pt reports increased appetite at night time. Pt has questions regarding DM medications and was advised to have this discussion with the doctor, his appointment was moved to an earlier appt. 7 d BG average: 82% within range, 17% between 180-250 and 1% above 250 beverages: gatorade/vitamin water, water snacks : pretzels- often reports related to boredom physical activity: daily life activities BS Monitoring Most Recent Diabetes Results: Creatinine 1.40 mg/dL (0.5-1.4) 07/28/23 Blood Urea Nitrogen 27 mg/dL (9-16) H 07/28/23 Sodium 133 mmol/L (135-145) L 07/28/23 Potassium 4.8 mmol/L (3.3-5.1) 07/28/23 Chloride 102 mmol/L (96-108) 07/28/23 Carbon Dioxide 22 mmol/L (22-29) 07/28/23 Calcium 9.2 mg/dL (8.4-10.2) 07/28/23 AST 13 U/L (5-37) 07/28/23 ALT 12 U/L (0-40) 07/28/23 Total Protein 7.0 g/dL (6.5-8.0) 07/28/23 Albumin 4.2 g/dL (3.5-5.0) 07/28/23 [facility] Medical History HCV (hepatitis C virus) Ischemic cardiomyopathy T2DM (type 2 diabetes mellitus) Spondylosis of lumbar spine History of non-ST elevation myocardial infarction (NSTEMI) NSTEMI (non-ST elevated myocardial infarction) Post-nasal drainage Type 2 diabetes mellitus with diabetic neuropathy Thyroid nodule Lower back pain Neuropathy Chronic anemia Cough BPH (benign prostatic hyperplasia) Diabetic retinopathy PVD (peripheral vascular disease) Goiter Vitamin D deficiency HLD (hyperlipidemia) HTN (hypertension) Surgical History S/P placement of nerve stimulator H/O colonoscopy History of esophagogastroduodenoscopy (EGD) S/P aorto-bifemoral bypass surgery Hx of basal cell carcinoma excision Family History Father Diabetes Mother Diabetes Leukemia Skin cancer Alzheimers disease Dementia Social History Household Members: Spouse Housing: House Do you presently have visiting nurse or other home services: No Alcohol intake: never Patient Tobacco Use Status: Former Tobacco user Tobacco use type: Cigarette Cigarette Packs Per Day: 3 Years Smoked: 30 e-Cigarette/Vaping Use: Never Used Second Hand Smoke Exposure: No Advance Directives Date on File: 08/02/21 service: Yes Current occupational status: retired Assessment & Plan Assessment & Plan (1) T2DM (type 2 diabetes mellitus): Code(s): E11.9 - Type 2 diabetes mellitus without complications Category: Medical Qualifiers: Diabetes mellitus jail insulin use: with jail use Diabetes mellitus complication status: with hyperglycemia Qualified Code(s): E11.65 - Type 2 diabetes mellitus with hyperglycemia; Z79.4 - longterm (current) use of insulin Plan: Wt: 108 Kg ( 09/2023 ), 107 kg (10/2023) Est kcal needs as per MSJ: 2200 (40% carb, 30% protein/fat) Est fluid needs as per 25-30 ml/d: 3200 Est prot per day as per 1 g/kg bw: 108 Recommend fiber intake : 8-10 g per day and gradually increase to 25-28 g per day for women and 35-38 g for men or as tolerated Recommend sodium intake per day : less than 2000 mg Educated patient on: ( R = reviewed V = verbalizes understanding N/R = needs review N/A = not applicable * Food sources of carbohydrate, adequate serving sizes and its role in various health conditions: R * Differences between complex carbohydrates a simple carbohydrates, role of fiber in diet: R * Lean protein sources of foods: R * Differences between types of fats and role in diet (mono on saturated fat fatty acids, saturated fatty acids, trans fats): R low fat * Food sources of sodium in salt and healthy modifications for heart health in kidney health: NR * Vitamins and minerals: N/R * Healthy plate method concept: R * Physical activity: Benefits a precaution: R * Hypoglycemia protocol (rule of 15): N/R * Dietary prevention of Hyperglycemia: R * foods and inflammation : R Patient Instructions: Work on including at least 2 fruits per day replacing empty calorie snacks discuss medications with your doctor at next visit Coding Level of Care Code Nutr Indiv Subseq (33322) Diagnoses Type 2 diabetes mellitus with hyperglycemia, with long-term current use of insulin E11.65; Z79.4 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
[2023-10-21 11:06] VITALS: BMI 33.9
== END 2023-10-21 11:33 | disposition home or self-care (01) ==
PROVIDERS: PCP Registered Nurse; Visit Provider Dietitian, Registered
DX: E11.65 Type 2 diabetes mellitus with hyperglycemia (principal); Z79.4 Long term (current) use of insulin

== ENCOUNTER → 2023-10-21 11:01 | Outpatient (BNVA) | payer MEDICARE, SELFPAY | PROVIDERS: PCP Registered Nurse; Visit Provider Dietitian, Registered | DX: E11.65 Type 2 diabetes mellitus with hyperglycemia (principal); Z79.4 Long term (current) use of insulin | CPT/HCPCS: 97803 ==

== ENCOUNTER 2023-10-22 15:25 | Outpatient (AMB) | payer MEDICARE, SELFPAY ==
--- NOTE | 2023-10-22 15:29 | MHC.OFFVIS ---
Vital Signs 10/22/23 15:31 Height 5 ft 10 in Weight 236 lb 1.841 oz BMI 33.9 BP 132/74 Blood Pressure Location Lt brachial Position Sitting Pulse 58 Pulse Source Pulse Oximeter Intake Visit Reasons: DM-CONFIRMED Intake Note: Patient presents today to follow up on D2MT. Last Podiatry Visit: 10/22/23 Random Glucose: 162 mg/dl HgA1c: 9.8% 08/25/23 Legal Compliance Officer Required: No Accompanied by: Spouse Allergies adhesive tape Allergy (Mild, Verified 10/22/23 15:34) Redness of Skin Medication List - Last Reconciled 10/22/23 by Yoandy Rubio MD albuterol sulfate 90 mcg/actuation 2 puffs PO Q6H PRN ascorbic acid (vitamin C) (Vitamin C) 500 mg PO DAILY blood sugar diagnostic ([employer] Verio test strips) As directed blood-glucose meter ([employer] Verio Reflect Meter) As directed blood-glucose sensor (TeleCIS WirelessStyle Tomer 3 Sensor device) As directed change every 14 days cephalexin 500 mg PO QID cholecalciferol (vitamin D3) (Vitamin D3) 125 mcg PO DAILY clopidogrel 75 mg PO DAILY ferrous sulfate 1 tab PO DAILY furosemide 40 mg PO DAILY insulin aspart U-100 (Novolog FlexPen U-100 Insulin aspart) 5 - 10 units (0.05 - 0.1 mL) subcut TID 90 days insulin glargine (Lantus Solostar U-100 Insulin) 50 units (0.5 mL) subcut BEDTIME insulin syringe-needle U-100 (BD Insulin Syringe) As directed lactobacillus combination no.4 (Probiotic) 3,000 mmu cells PO DAILY lancets ([employer] WAY GARDEN HOU[employer]ouch Delica Plus Lancet) As directed losartan 50 mg PO DAILY nitroglycerin mg sublingual omeprazole 40 mg PO BID pen needle, diabetic (Comfort EZ Pen [place]) use 1 needle 5 times day day for insulin injections rosuvastatin 20 mg PO BEDTIME tamsulosin 1 cap PO BEDTIME tirzepatide (Mounjaro) 2.5 mg (0.5 mL) subcut QWEEK 4 weeks HPI Comments Details: 73 YO M with PMHx T2DM, HTN, HLD who is seen in F/U for T2DM. T Initially diagnosed with T2DM many years ago, he does not recall when. Was initially started on treatment with Metformin and Glipizide. He hospitalized with a L groin abscess with staph infection. During that hospitalization his Metformin was stopped. His current regimen is not taking Lantus 50 units daily and novolog 24 units . He only uses his Humalog after eating if his sugar is high. He typically does not use his Humalog at all. He was prescribed Trulicity at his last visit, but this has been cost prohibitive for him and he has not been using it consistently.Was prescribed Mounjaro - 5 mg reduced to 2.5 mg . Jardiance 25 mg QD He was previously very well controlled off most insulin on a ketogenic diet, Has Tomer 3 14 days of data downloaded and reviewed from. i10/09/2023 to 10/22/2023 toaverage sugar is 156 with G mi of 7% with an SD of 19 . He is at goal 83% of the time, above goal 17% of the time, and below goal 0 of the time. Sugars are consistently high overnight. Rare low sugars. Has hypoglycemia awareness. Treats lows with rapid sugar. Has DEXCOM to monitor his sugars after. Family history of T2DM in his Father. Has eyes checked yearly, last eye exam today denies retinopathy. Denies Neuropathy, does not see Podiatry. Nephropathy, on Losartan 50 mg PO daily, UAC 60.6 11/03/2020. Has HLD, on Rosuvastatin 20 mg PO daily. LDL 56 02/07/2021. Denies CAD. Diet: Knows how to count carbs. Labs: Laboratory Tests 09/29/20 11/03/20 11/03/20 21:24 11:50 11:50 Creatinine 1.20 Estimated GFR 60 Hemoglobin A1c % 6.2 LDL Cholesterol Direct 113 H LDL Cholesterol, Calc 25-OH Vitamin D Total Microalb/Creat Ratio 11/03/20 11/03/20 11/03/20 11:50 11:50 Unknown Creatinine 1.06 Estimated GFR > 60 Hemoglobin A1c % LDL Cholesterol Direct LDL Cholesterol, Calc 25-OH Vitamin D Total 31.6 Microalb/Creat Ratio 60.6 02/07/21 08/05/21 09/26/21 04:56 06:41 08:16 Creatinine 1.11 1.34 1.41 H Estimated GFR > 60 52 49 Hemoglobin A1c % LDL Cholesterol Direct LDL Cholesterol, Calc 56 25-OH Vitamin D Total Microalb/Creat Ratio 09/26/21 08:16 Creatinine Estimated GFR Hemoglobin A1c % 8.3 LDL Cholesterol Direct LDL Cholesterol, Calc 25-OH Vitamin D Total Microalb/Creat Ratio [facility] Medical History HCV (hepatitis C virus) Ischemic cardiomyopathy T2DM (type 2 diabetes mellitus) Spondylosis of lumbar spine History of non-ST elevation myocardial infarction (NSTEMI) NSTEMI (non-ST elevated myocardial infarction) Post-nasal drainage Type 2 diabetes mellitus with diabetic neuropathy Thyroid nodule Lower back pain Neuropathy Chronic anemia Cough BPH (benign prostatic hyperplasia) Diabetic retinopathy PVD (peripheral vascular disease) Goiter Vitamin D deficiency HLD (hyperlipidemia) HTN (hypertension) Surgical History S/P placement of nerve stimulator H/O colonoscopy History of esophagogastroduodenoscopy (EGD) S/P aorto-bifemoral bypass surgery Hx of basal cell carcinoma excision Family History Father Diabetes Mother Diabetes Leukemia Skin cancer Alzheimers disease Dementia Social History Household Members: Spouse Housing: House Do you presently have visiting nurse or other home services: No Alcohol intake: never Patient Tobacco Use Status: Former Tobacco user Tobacco use type: Cigarette Cigarette Packs Per Day: 3 Years Smoked: 30 e-Cigarette/Vaping Use: Never Used Second Hand Smoke Exposure: No Advance Directives Date on File: 08/02/21 service: Yes Current occupational status: retired Physical Exam Vital Signs: Last Vital Signs Pulse 58 10/22/23 15:31 BP 132/74 10/22/23 15:31 BMI result Body Mass Index 33.9 Absence of Cushingoid features. Absence of acromegalic features. Neck exam reveals nl size thyroid about 15 gms. No thyroid nodules palpable. L carotid bruits present. Lungs CTA. Heart S1 S2, Reg R/R. No M/R/ G. Skin exam reveals absence of vitiligo or acanthosis nigricans. Abdominal exam reveals Soft NT/ND with NA BS. No organomegaly present. Neck Other: . Extrem Other: Visual exam of foot performed. No ulcerations or open lesions. No onchomycosis, no callouses.Pulses 2 + distally Sensation intact to monofilament exam. Vibratory sensation sensed is idecreased with 128 Hz tuning fork Assessment & Plan Assessment & Plan (1) Type 2 diabetes mellitus with diabetic neuropathy: Code(s): E11.40 - Type 2 diabetes mellitus with diabetic neuropathy, unspecified Category: Medical Plan: This is a 72-year-old white male with a history of type 2 diabetes being treated with basal and correction insulin and Mounjaro with excellent improved glycemic control and known microvascular complications namely neuropathy and retinopathy. Plan is to continue the current regimen. Medications: Changed From insulin aspart U-100 (Novolog FlexPen U-100 Insulin aspart) 5 - 10 units (0.05 - 0.1 mL) subcut TID 90 days 15 mL 3RF To insulin aspart U-100 (Novolog FlexPen U-100 Insulin aspart) 24 units (0.24 mL) subcut TID 90 days 135 mL 3RF Refilled insulin glargine (Lantus Solostar U-100 Insulin) 50 units (0.5 mL) subcut BEDTIME 15 mL 5RF E11.40 - Type 2 diabetes mellitus with diabetic neuropathy, unspecified Coding Level of Care Code Est Pt Level 4 (89822) Diagnoses Type 2 diabetes mellitus with diabetic neuropathy E11.40
[2023-10-22 15:31] VITALS: BP 132/74; PULSE 58; BMI 33.9
[2023-10-22 18:13] LABS: Glucose, Whole Blood 162 mg/dL (60-115)
== END 2023-10-22 15:56 | disposition home or self-care (01) ==
LOC: HO.ENCR 15:27
PROVIDERS: PCP Registered Nurse; Visit Provider Internal Medicine Endocrinology, Diabetes & Metabolism
DX: E11.40 Type 2 diabetes mellitus with diabetic neuropathy, unspecified (principal)
CPT/HCPCS: 99214

== ENCOUNTER → 2023-10-22 15:27 | Outpatient (BNVA) | payer MEDICARE, SELFPAY | PROVIDERS: PCP Registered Nurse; Visit Provider Internal Medicine Endocrinology, Diabetes & Metabolism | DX: E11.40 Type 2 diabetes mellitus with diabetic neuropathy, unspecified (principal); E11.21 Type 2 diabetes mellitus with diabetic nephropathy; E78.5 Hyperlipidemia, unspecified; Z79.899 Other long term (current) drug therapy | CPT/HCPCS: 82947; 99212 ==

== ENCOUNTER 2024-02-23 11:09 | Outpatient (AMB) | payer MEDICARE, SELFPAY ==
[2024-02-23 11:14] VITALS: BP 170/86; PULSE 59; BMI 37.3
--- NOTE | 2024-02-23 11:14 | A.OFFVIS_ITS ---
Vital Signs 02/23/24 11:14 Height 5 ft 10 in Weight 260 lb 2.327 oz BMI 37.3 BP 170/86 H Blood Pressure Location Rt brachial Position Sitting Pulse 59 Pulse Source Pulse Oximeter Intake Visit Reasons: DM/LVM Allergies adhesive tape Allergy (Mild, Verified 02/23/24 11:19) Redness of Skin Medication List - Last Reconciled 02/23/24 by Stephany Cody PA-C albuterol sulfate 90 mcg/actuation 2 puffs PO Q6H PRN ascorbic acid (vitamin C) (Vitamin C) 500 mg PO DAILY blood sugar diagnostic (Z[employer] StaffingTouch Verio test strips) As directed blood-glucose meter (Z[employer]un StaffingTouch Verio Reflect Meter) As directed blood-glucose sensor (Adisn Tomer 3 Sensor device) As directed change every 14 days cephalexin 500 mg PO QID cholecalciferol (vitamin D3) (Vitamin D3) 125 mcg PO DAILY clopidogrel 75 mg PO DAILY ferrous sulfate 1 tab PO DAILY furosemide 40 mg PO DAILY insulin aspart U-100 (Novolog FlexPen U-100 Insulin aspart) 24 units (0.24 mL) s ubcut TID 90 days insulin glargine (Lantus Solostar U-100 Insulin) 50 units (0.5 mL) subcut BEDTIME insulin syringe-needle U-100 (BD Insulin Syringe) As directed lactobacillus combination no.4 (Probiotic) 3,000 mmu cells PO DAILY lancets ([employer] Delica Plus Lancet) As directed losartan 50 mg PO DAILY nitroglycerin mg sublingual omeprazole 40 mg PO BID pen needle, diabetic (Comfort EZ Pen [place]) use 1 needle 5 times day day for insulin injections rosuvastatin 20 mg PO BEDTIME tamsulosin 1 cap PO BEDTIME HPI HPI DM/LVM: Details: Patient is a 73-year-old male with a significant past medical history of type 2 diabetes, hypertension, hyperlipidemia, peripheral vascular disease, chronic kidney disease, ischemic cardiomyopathy, and chronic anemia presenting today for a follow up regarding his diabetes. Endo: Last saw Dr. Rubio in september. His A1c today is 7.2. He is currently on Mounjaro 5 mg weekly, Lantus 25 units BID, NovoLog 24 units 3 times a day CGM- usage 97%, GMI 7.4%. in range 63%, hyperglycemic 37% -no hypoglycemic events. States that he has not had a low blood sugar in a long time and would correct this with orange juice. He has glucose tabs also. He states that he does not think the Mounjaro is suppressing his appetite an ymore as he has gained 30 lb. He states that he trying to healthy but went to camp for the summer and ate a lot of snacks. Complications-diabetic retinopathy, neuropathy, nephropathy, peripheral vascular disease CV: Blood pressure today in the office is 170/86. He is currently feeling some SOB and chest discomfort. His bps are usually normal. He uses nitro intermittently and didnt take it today. He is currently on furosemide 40 mg, losartan 50 mg. Cholesterol is controlled with Crestor 20 mg. Follows with cardiology, Dr. Quezada. -he states that this morning he noticed some difficulty breathing. He states that it is hard to get comfortable to be able to take a deep breath. He states it feels like he just needs more air. He states he thinks it is related to his weight gain but he has gained 30 lb over the summer gradually and has not had these symptoms until today. He has intermittently had chest pain over the summer and would take nitro. He states he is not sure if it did a lot but sometimes it feels like it helped. He has not taken nitro today and does have some chest discomfort. The chest pain is worse with exertion. When he walked in here he did have increased pain. He currently does have some discomfort. States it feels like a heaviness. He denies any nausea or dizziness. His blood pressures do concern him as it is normally well-controlled. He is compliant with his medications. Vasc: Follows with vascular surgery at [facility] Nephro: does not follow with nephrology. [facility] Medical History HCV (hepatitis C virus) Ischemic cardiomyopathy T2DM (type 2 diabetes mellitus) Spondylosis of lumbar spine History of non-ST elevation myocardial infarction (NSTEMI) NSTEMI (non-ST elevated myocardial infarction) Post-nasal drainage Type 2 diabetes mellitus with diabetic neuropathy Thyroid nodule Lower back pain Neuropathy Chronic anemia Cough BPH (benign prostatic hyperplasia) Diabetic retinopathy PVD (peripheral vascular disease) Goiter Vitamin D deficiency HLD (hyperlipidemia) HTN (hypertension) Surgical History S/P placement of nerve stimulator H/O colonoscopy History of esophagogastroduodenoscopy (EGD) S/P aorto-bifemoral bypass surgery Hx of basal cell carcinoma excision Family History Father Diabetes Mother Diabetes Leukemia Skin cancer Alzheimers disease Dementia Social History Household Members: Spouse Housing: House Do you presently have visiting nurse or other home services: No Alcohol intake: never Patient Tobacco Use Status: Former Tobacco user Tobacco use type: Cigarette Cigarette Packs Per Day: 3 Years Smoked: 30 e-Cigarette/Vaping Use: Never Used Second Hand Smoke Exposure: No Advance Directives Date on File: 08/02/21 service: Yes Current occupational status: retired Physical Exam Const Orientation/consciousness: patient oriented x3 Neck Neck: Yes no lymphadenopathy Thyroid: Thyroid normal Carotids: no bruits Resp Auscultation: clear to auscultation bilaterally Cardio Rate: regular rate Rhythm: regular rhythm Heart sounds: S1 normal heart sound present and S2 normal heart sound present Peripheral pulses: dorsalis pedis present Neuro General: patient oriented x3, gait normal and no focal motor deficits Extrem Other: Monofilament sensation intact bilaterally. Vibratory sensation intact bilaterally. Skin intact. General: Yes normal to inspection Office Procedures Glucose Monitoring Details Details: See [facility] [address] - Glucose monitoring, continuous-physician I&R Procedure code (CPT) selection complete Results AMB Hemoglobin A1c AMB Hemoglobin A1c 7.2 % Last Edit by EVERARDO Nair on 02/23/24 11:40 Results Reviewed Results Reviewed: Laboratory Tests 02/28/20 11/03/20 07/28/23 11:19 Unknown 14:00 Creatinine 1.40 Estim Creat Clear Calc 54.5 Estimated GFR 50 Glucose (Clinic) Hgb A1c (Clinic) AST 13 ALT 12 Urine Creatinine 82.39 Urine Microalbumin 50.0 Microalb/Creat Ratio 60.6 WILIAM Antibody <5 08/25/23 10/22/23 15:20 15:36 Creatinine Estim Creat Clear Calc Estimated GFR Glucose (Clinic) 162 H Hgb A1c (Clinic) 9.8 H AST ALT Urine Creatinine Urine Microalbumin Microalb/Creat Ratio WILIAM Antibody Assessment & Plan Assessment & Plan (1) Uncontrolled type 2 diabetes mellitus with hyperglycemia, with long-term current use of insulin: Code(s): E11.65 - Type 2 diabetes mellitus with hyperglycemia; 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 Increase Mounjaro to 7.5 mg weekly. Follow up in 1 month. Sooner if needed.. (2) Chest discomfort: Code(s): R07.89 - Other chest pain Category: Medical Plan: After a long discussion regarding his chest pain or shortness on breath he does agree to go to the ER. He did not want an ambulance. He was walked across the street by staff to the ER. (3) SOB (shortness of breath): Code(s): R06.02 - Shortness of breath Category: Medical Plan: As above. (4) HTN (hypertension): Code(s): I10 - Essential (primary) hypertension Category: Medical Qualifiers: Hypertension type: unspecified Qualified Code(s): I10 - Essential (primary) hypertension Plan: Elevated above goal. Usually normal. Going to ED for evaluation. 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 insulin Medications: New tirzepatide (Mounjaro) 7.5 mg (0.5 mL) subcut QWEEK 2 mL 5RF Changed From insulin glargine (Lantus Solostar U-100 Insulin) 50 units (0.5 mL) subcut BEDTIME 15 mL 5RF E11.40 - Type 2 diabetes mellitus with diabetic neuropathy, unspecified To insulin glargine (Lantus Solostar U-100 Insulin) 56 units (0.56 mL) subcut BEDTIME 15 mL 5RF E11.40 - Type 2 diabetes mellitus with diabetic neuropathy, unspecified Discontinued tirzepatide (Mounjaro) Discontinued Reason: Doctor's Order 5 mg (0.5 mL) subcut QWEEK 2 mL 5RF Coding Level of Care Code Est Pt Level 4 (58009) Diagnoses Uncontrolled type 2 diabetes mellitus with hyperglycemia, with long-term current use of insulin E11.65; Z79.4 Chest discomfort R07.89 SOB (shortness of breath) R06.02 Hypertension, unspecified type I10 Hypertension type: unspecified CPT Codes Details - CPT: 39688 - Glucose monitoring, continuous-physician I&R ([id number])
--- NOTE | 2024-02-23 11:14 | MHC.OFFVIS ---
Vital Signs 02/23/24 11:14 Height 5 ft 10 in Weight 260 lb 2.327 oz BMI 37.3 BP 170/86 H Blood Pressure Location Rt brachial Position Sitting Pulse 59 Pulse Source Pulse Oximeter Intake Visit Reasons: DM/LVM Intake Note: New patient presents today for D2MT office visit. Last Diabetic Eye exam: 10/2023 Last Podiatry Visit: Doesn't have one Random Glucose: 195 mg/dl HgA1c: 7.2% Bottom Finisher Required: No Accompanied by: Self / Same As Patient Allergies adhesive tape Allergy (Mild, Verified 02/23/24 11:19) Redness of Skin PFSH Medical History HCV (hepatitis C virus) Ischemic cardiomyopathy T2DM (type 2 diabetes mellitus) Spondylosis of lumbar spine History of non-ST elevation myocardial infarction (NSTEMI) NSTEMI (non-ST elevated myocardial infarction) Post-nasal drainage Type 2 diabetes mellitus with diabetic neuropathy Thyroid nodule Lower back pain Neuropathy Chronic anemia Cough BPH (benign prostatic hyperplasia) Diabetic retinopathy PVD (peripheral vascular disease) Goiter Vitamin D deficiency HLD (hyperlipidemia) HTN (hypertension) Surgical History S/P placement of nerve stimulator H/O colonoscopy History of esophagogastroduodenoscopy (EGD) S/P aorto-bifemoral bypass surgery Hx of basal cell carcinoma excision Family History Father Diabetes Mother Diabetes Leukemia Skin cancer Alzheimers disease Dementia Social History Household Members: Spouse Housing: House Do you presently have visiting nurse or other home services: No Alcohol intake: never Patient Tobacco Use Status: Former Tobacco user Tobacco use type: Cigarette Cigarette Packs Per Day: 3 Years Smoked: 30 e-Cigarette/Vaping Use: Never Used Second Hand Smoke Exposure: No Advance Directives Date on File: 08/02/21 service: Yes Current occupational status: retired Physical Exam Vital Signs: Last Vital Signs Pulse 59 02/23/24 11:14 BP 170/86 H 02/23/24 11:14 BMI result Body Mass Index 37.3 Results AMB Hemoglobin A1c AMB Hemoglobin A1c 7.2 % Last Edit by EVERARDO Nair on 02/23/24 11:40 Results Reviewed Results Reviewed: Laboratory Last Values Glucose (Clinic) 195 mg/dL (60-115) H 02/23/24 11:22 Assessment & Plan Assessment & Plan Orders: Orders AMB Hemoglobin A1c Today E11.65 - Type 2 diabetes mellitus with hyperglycemia, Z13.9 - Encounter for screening, unspecified, Z79.4 - [facility] (current) use of insulin Coding
[2024-02-23 11:26] LABS: Glucose, Whole Blood 195 mg/dL (60-115)
== END 2024-02-23 13:38 | disposition home or self-care (01) ==
PROVIDERS: PCP Registered Nurse; Visit Provider Physician Assistant
DX: E11.65 Type 2 diabetes mellitus with hyperglycemia (principal); Z79.4 Long term (current) use of insulin; R07.89 Other chest pain; R06.02 Shortness of breath; I10 Essential (primary) hypertension; Z13.9 Encounter for screening, unspecified

== ENCOUNTER → 2024-02-23 11:09 | Outpatient (BNVA) | payer MEDICARE, SELFPAY | PROVIDERS: PCP Registered Nurse; Visit Provider Physician Assistant ==

== ENCOUNTER 2024-02-23 11:54 | Emergency (ER) | payer MEDICARE, SELFPAY ==
--- NOTE | ~2024-02-23 | XR_ITS ---
EXAMINATION: XR CHEST CLINICAL INFORMATION: Shortness of breath. Chest pain. COMPARISON: Chest x-ray August 01, 2021 TECHNIQUE: 2 views of the chest were obtained. FINDINGS: Lungs are clear. No pulmonary vascular congestion. There is no pleural effusion. The heart size is normal. The cardiac and mediastinal contours are normal. There are calcifications of the thoracic aorta. There are multilevel degenerative changes of dorsal spine. XR/XR chest 2V IMPRESSION: No acute abnormality of chest. Electronically signed by: Gonzalez Cary MD 02/23/2024 03:05 PM EDT RP
--- NOTE | 2024-02-23 11:58 | ECG_ITS ---
Test Reason : cp Blood Pressure : / mmHG Vent. Rate : 060 BPM Atrial Rate : 060 BPM P-R Int : 160 ms QRS Dur : 082 ms QT Int : 406 ms P-R-T Axes : 074 023 057 degrees QTc Int : 406 ms Normal sinus rhythm Anterior infarct , age undetermined Nonspecific ST abnormality Abnormal ECG When compared with ECG of 03-AUG-2021 08:21, No significant change was found Referred By: Generic ED Physician Electronically Signed By:SOBEIDA BARON
[2024-02-23 12:04] VITALS: BP 178/70; PULSE 60; RESP 18; TEMP 36.4; O2SAT 96; BMI 37.2
--- NOTE | 2024-02-23 12:05 | ED_ITS ---
HPI - General Adult General Chief complaint: Chest Pain Stated complaint: sob-cp Source: patient Mode of arrival: ambulatory Limitations: no limitations History of Present Illness ED Provider: Jennifer Cuellar PA-C HPI narrative: Patient is a 73 year old assigned male at with a history of DM, cardiomyopathy, HLD, PVD, and NSTEMI presenting to the emergency department today with shortness of breath and chest pain. Patient states that starting this morning while watching TV he began to have chest pain and SOB. Patient denies any dizziness, lightheadedness, abdominal pain, nausea, vomiting, fever, chills, blurry vision, double vision, loss of vision, back pain, night sweats, pain with urination, increased urinary frequency, increased urinary urgency, blood in his urine or stool, syncope or a near syncopal episode, recent trauma or falls, bowel incontinence, bladder incontinence, or any other complaints at this time. Onset (ago): hour(s) Location: chest Relieving factors: none Exacerbating factors: none Associated symptoms: chest pain and shortness of breath Treatments prior to arrival: none Related Data Home Medications ?Medication ?Instructions ?Recorded ?Confirmed ascorbic acid (vitamin C) 500 mg 500 mg PO DAILY 02/06/21 02/23/24 tablet (Vitamin C) cholecalciferol (vitamin D3) 125 125 mcg PO DAILY 02/06/21 02/23/24 mcg (5,000 unit) tablet (Vitamin D3) lactobacillus combination no.4 3 3,000 mmu cells PO DAILY 02/06/21 02/23/24 billion cell capsule (Probiotic) blood sugar diagnostic (OneTouch #10 ea 02/21/21 02/23/24 Verio test strips) blood-glucose meter (OneTouch #1 ea 02/21/21 02/23/24 Verio Reflect Meter) lancets 33 gauge (OneTouch Delica #100 ea 02/21/21 02/23/24 Plus Lancet) albuterol sulfate 90 mcg/actuation 2 puff PO Q6H PRN wheezing 08/01/21 02/23/24 aerosol inhaler rosuvastatin 20 mg tablet 20 mg PO BEDTIME 08/01/21 02/23/24 tamsulosin 0.4 mg capsule 1 cap PO BEDTIME 08/01/21 02/23/24 losartan 25 mg tablet 50 mg PO DAILY 09/26/21 02/23/24 ferrous sulfate 325 mg (65 mg 1 tab PO DAILY 12/19/21 02/23/24 iron) tablet,delayed release cephalexin 500 mg capsule 500 mg PO QID 08/25/23 02/23/24 nitroglycerin 0.4 mg sublingual mg sublingual 08/25/23 02/23/24 tablet Previous Rx's ?Medication ?Instructions ?Recorded insulin syringe-needle U-100 1 mL #100 ea 03/09/20 27 gauge x 1/2 (BD Insulin Syringe) clopidogrel 75 mg tablet 75 mg PO DAILY #30 tabs 02/26/21 furosemide 40 mg tablet 40 mg PO DAILY #90 tabs 05/15/21 omeprazole 40 mg capsule,delayed 40 mg PO BID #60 caps 08/05/21 release pen needle, diabetic 31 gauge x #100 ea 12/17/21/16 (Comfort EZ Pen [place]) blood-glucose sensor (FreeStyle #2 ea 09/20/23 Tomer 3 Sensor device) insulin aspart U-100 100 unit/mL 24 unit (0.24 mL) subcut TID 90 10/22/23 (3 mL) subcutaneous pen (Novolog days #135 mL FlexPen U-100 Insulin aspart) insulin glargine 100 unit/mL (3 56 unit (0.56 mL) subcut BEDTIME 02/23/24 mL) subcutaneous pen (Lantus #15 mL Solostar U-100 Insulin) tirzepatide 7.5 mg/0.5 mL 7.5 mg (0.5 mL) subcut QWEEK #2 mL 02/23/24 subcutaneous pen injector (Robunjaro) Allergies Allergy/AdvReac Type Severity Reaction Status Date / Time adhesive tape Allergy Mild Redness of Verified 02/23/24 12:07 Skin Review of Systems 2 Constitutional: Constitutional: Reports no additional constitutional complaints, Denies chills, Denies fever(s) and Denies night sweats Eyes: Eyes: Reports no additional eye complaints, Denies blurry vision, Denies change in vision, Denies diplopia, Denies eye discharge, Denies loss of vision and Denies eye pain ENT: Denies dizziness Cardiovascular: Cardiovascular: Reports no additional cardiovascular complaints, Reports chest pain, Denies lightheadedness, Denies Loss of Consciousness and Reports dyspnea Respiratory: Respiratory: Reports no additional respiratory complaints and Reports dyspnea Gastrointestinal: Gastrointestinal: Reports no additional gastrointestinal complaints, Denies abdominal pain, Denies melena, Denies hematochezia, Denies change in bowel habits and Denies change in stool character Genitourinary: Genitourinary: Reports no additional male genitourinary complaints, Denies hematuria, Denies oliguria, Denies difficulty urinating, Denies dysuria, Denies urinary frequency, Denies urinary hesitancy, Denies urinary incontinence and Denies urinary urgency Musculoskeletal: Musculoskeletal: Reports no additional musculoskeletal complaints, Denies numbness and Denies tingling Neurologic: Denies dizziness, Denies loss of vision, Denies numbness and Denies tingling Psychiatric: Psychiatric: Reports no additional psychiatric complaints Endocrine: Endocrine: Reports no additional endocrine complaints Hematologic/Lymphatic: Hematologic/Lymphatic: Reports no additional hematologic/lymphatic complaints Allergic/Immunologic: Allergic/Immunologic: Reports no additional allergic/immunologic complaints PMFSH Past Medical History Attestation statement: The following information was validated with the patient. Source: old records reviewed and nursing notes reviewed Medical History SOB (shortness of breath) Chest discomfort Cough Lower back pain Elevated troponin Obesity HCV (hepatitis C virus) Ischemic cardiomyopathy T2DM (type 2 diabetes mellitus) Spondylosis of lumbar spine History of non-ST elevation myocardial infarction (NSTEMI) NSTEMI (non-ST elevated myocardial infarction) Post-nasal drainage Type 2 diabetes mellitus with diabetic neuropathy Thyroid nodule Neuropathy Chronic anemia BPH (benign prostatic hyperplasia) Diabetic retinopathy PVD (peripheral vascular disease) Goiter Vitamin D deficiency HLD (hyperlipidemia) HTN (hypertension) Surgical History S/P placement of nerve stimulator H/O colonoscopy History of esophagogastroduodenoscopy (EGD) S/P aorto-bifemoral bypass surgery Hx of basal cell carcinoma excision Family History Family History Father Diabetes Mother Diabetes Leukemia Skin cancer Alzheimers disease Dementia Social History Social History Household Members: Spouse Housing: House Do you presently have visiting nurse or other home services: No Alcohol intake: never Patient Tobacco Use Status: Former Tobacco user Tobacco use type: Cigarette Cigarette Packs Per Day: 3 Years Smoked: 30 e-Cigarette/Vaping Use: Never Used Second Hand Smoke Exposure: No Advance Directives: Yes Advance Directives on File: Yes Advance Directives Date on File: 08/02/21 service: Yes Current occupational status: retired Physical Exam ED Vital Signs: Vital Signs - 24 hr 02/23/24 12:04 Temperature 97.6 F Pulse Rate 60 Respiratory Rate 18 Blood Pressure 178/70 H Pulse Oximetry 96 Oxygen Delivery Method Room Air BMI result Body Mass Index 37.2 Const General: cooperative, no acute distress, alert and awake Nutritional Appearance: well nourished Orientation/consciousness: patient oriented x3 Limitations: no limitations HENMT Head: Yes normal to inspection and Yes atraumatic Ears: hearing grossly normal bilaterally and external ears normal General nose exam: Normal external nose present, no nasal discharge noted and no epistaxis Face and sinus: Yes normal facial exam, No abrasion and No laceration Mouth: Normal oral and palatal mucosa present, no drooling and no muffled voice Eyes General: appearance normal, both eyes and all related structures Periorbital: periorbital findings normal Eyelids: Yes eyelids normal Conjunctivae: conjunctivae normal Pupils: Equal, round and reactive pupils present EOM: EOMs intact bilaterally Neck Neck: Yes normal visual inspection, Yes full ROM and Yes no lymphadenopathy Chest Chest palpation & inspection: normal inspection of the chest Resp Effort & Inspection: normal respiratory effort and able to speak in complete sentences GI Inspection: Yes normal to inspection Neuro General: patient oriented x3 and moves all extremities Cranial nerves: Yes Equal, round and reactive pupils present Cognition (Neuro): normal cognition Extrem General: Yes normal to inspection, Yes full ROM and Yes capillary refill normal Psych Appearance: grossly normal Mental Status: mental status grossly normal Affect: normal affect Attitude: cooperative Thought process: Normal thought process present Thought content: Normal thought content present Insight: Good insight present (Psych) Course Course Course Narrative: RME performed by Jennifer Cuellar PA-C. Patient is a 73 year old assigned male at presenting to the emergency department with chest pain and shortness of breath. Patient states since this morning he has had chest pain and increased shortness of breath. Patient states that he was seen by a doctor today and was told to come to the ER [facility]. Detailed physical exam and review of systems are deferred to the scarifier operator. EKG, labs, imaging, and swabs ordered. Patient placed back in the waiting room pending room availability and results. Medical Decision Making Medical Decision Making [facility] Narrative: Patient is a 73 year old assigned male at with a history of DM, cardiomyopathy, HLD, PVD, and NSTEMI presenting to the emergency department today with shortness of breath and chest pain. Patient's limited physical exam performed in triage was unremarkable. Patient's blood work was showed a troponin of 19.7 and a BNP of 309. Patient's EKG was unremarkable. Patient's chest x-ray showed no acute process. Patient left the department without completing treatment. Patient left the department before myself or any of the other emergency department clinicians could explain to or review with the patient; physical exam findings, test results, need or lack there of for additional testing, need or lack there of for a procedure to be performed, need or lack there of for hospital admission / transfer, need or lack there of for prescription medication, treatment options, or a treatment plan. Differential Diagnosis Differential Diagnoses: The differential diagnosis associated with the presentation includes NSTEMI STEMI Chest pain Atypical chest pain CHF exacerbation Angina Admission/Observation Consideration of admission/observation: Escalation of care including admission/observation considered Patient would have been admitted to the hospital had he completed his work up and it had any findings where hospital admission was appropriate, his clinical presentation warranted hospital admission, had myself or any other emergency department clerk had the ability to discuss need or lack there of for hospital admission, and the patient hadn't left the department without completing treatment. Lab Data [facility] Lab Attestation statement: I reviewed the patient's lab results. My interpretation of these results are in the [facility] Rationale portion of this note. 02/23/24 12:43 02/23/24 12:43 Labs: Lab Results 02/23/24 Range/Units 12:43 WBC 10.2 (4.8-10.8) X10*3/uL RBC 4.56 L (4.60-5.80) X10*6/uL Hgb 14.2 (14.0-18.0) g/dl Hct 40.9 L (42.0-52.0) % MCV 89.7 (80.0-98.0) fL MCH 31.1 (27.0-33.0) pg MCHC 34.7 (31.0-36.0) g/dl RDW 13.5 (11.0-16.0) % Plt Count 155 L (160-400) X10*3/uL MPV 10.5 (9.4-12.4) fL Immature Gran % (Auto) 0.4 (0.0-0.4) % Neut % (Auto) 45.8 (45-73) % Lymph % (Auto) 43.3 H (20-40) % [place] % (Auto) 5.9 (2-11) % Eos % (Auto) 3.9 (0-4) % Baso % (Auto) 0.7 (0-2) % Lymph # (Auto) 4.4 (1.2-4.9) X10*3/uL [place] # (Auto) 0.6 (0.1-1.2) X10*3/uL Eos # (Auto) 0.4 (0.0-0.4) X10*3/uL Baso # (Auto) 0.1 (0.0-0.2) X10*3/uL Abs Immat Gran (auto) 0.04 H (0.00-0.03) X10*3/uL Absolute Neuts (auto) 4.7 (2.0-8.3) x10*3/uL Absolute Nucleated RBC 0.000 (0.0-0.012) X10*3/uL Nucleated RBC % (auto) 0.0 (0.0-0.2) /100WBC PT 10.9 (10.9-12.4) SEC INR 0.9 (0.9-1.1) APTT 31.8 (26.0-36.8) SEC Sodium 141 (135-145) mmol/L Potassium 4.9 (3.3-5.1) mmol/L Chloride 110 H (96-108) mmol/L Carbon Dioxide 24 (22-29) mmol/L Anion Gap 12 (12-20) BUN 13 (9-16) mg/dL Creatinine 1.22 (0.5-1.4) mg/dL Estim Creat Clear Calc 67.2 Estimated GFR 58 Random Glucose 199 H (60-115) mg/dL Calcium 9.2 (8.4-10.2) mg/dL Magnesium 1.9 (1.6-2.6) mg/dL Total Bilirubin 0.5 (0.0-1.0) mg/dL AST 22 (5-37) U/L ALT 25 (0-40) U/L Alkaline Phosphatase 54 (39-117) U/L Troponin I High Sens 19.7 (<3.5-35.0) ng/L B-Natriuretic Peptide 309 H (<100) pg/mL Total Protein 7.0 (6.5-8.0) g/dL Albumin 4.4 (3.5-5.0) g/dL Influenza Type A (PCR) NEGATIVE (Negative) Influenza Type B (PCR) NEGATIVE (Negative) RSV RNA Qual (PCR) NEGATIVE (Negative) SARS-CoV-2 RNA (RT-PCR) NEGATIVE (Negative) Independent Interpretation I performed an independent interpretation of an: EKG and Plain X-Ray Interpretation: My interpretation is in agreement with the radiologist's impression of this imaging study. L EXAMINATION: XR CHEST CLINICAL INFORMATION: Shortness of breath. Chest pain. COMPARISON: Chest x-ray August 01, 2021 TECHNIQUE: 2 views of the chest were obtained. FINDINGS: Lungs are clear. No pulmonary vascular congestion. There is no pleural effusion. The heart size is normal. The cardiac and mediastinal contours are normal. There are calcifications of the thoracic aorta. There are multilevel degenerative changes of dorsal spine. XR/XR chest 2V IMPRESSION: No acute abnormality of chest. Electronically signed by: Gonzalez Cary MD 02/23/2024 03:05 PM EDT Dictated By: Gonzalez Cary MD Signed By: Electronically signed by Gonzalez Cary MD 02/23/24 1505 Vent. Rate: 060 BPM Atrial Rate: 060 BPM P-R Int: 160 ms QRS Dur: 082 ms QT Int: 406 ms P-R-T Axes: 074 023 057 degrees QTc Int: 406 ms Normal sinus rhythm Anterior infarct, age undetermined When compared with ECG of 03-AUG-2021 08:21, No significant change was found Referred By: Generic ED Physician Electronically Signed By: DD/ [id number] Radiology Impression Discussion of test interpretation with radiology: I have reviewed the radiologist's reading. Discharge Plan Discharge Clinical Impression: Chest pain, SOB (shortness of breath) Patient Disposition: Left W/O Completing Treatment Prescriptions: No Action (DME) insulin syringe-needle U-100 [BD Insulin Syringe] 1 mL 27 gauge x 1/2 syringe See Rx Instructions .ROUTE .MEDSUPPLY Qty: 100 0RF Rx Instructions: As directed clopidogrel 75 mg tablet 75 mg PO DAILY Qty: 30 1RF furosemide 40 mg tablet 40 mg PO DAILY Qty: 90 3RF (DME) pen needle, diabetic [Comfort EZ Pen [place]] 31 gauge x 5/16 needle See Rx Instructions .ROUTE .MEDSUPPLY Qty: 100 11RF Rx Instructions: use 1 needle 5 times day day for insulin injections (DME) FreeStUrjanet Tomer 3 Sensor Device See Rx Instructions .Route Qty: 2 5RF Rx Instructions: As directed change every 14 days ascorbic acid (vitamin C) [Vitamin C] 500 mg Tablet 500 mg PO DAILY cholecalciferol (vitamin D3) [Vitamin D3] 125 mcg (5,000 unit) Tablet 125 mcg PO DAILY Probiotic 3 billion cell Capsule 3,000 mmu cells PO DAILY tamsulosin 0.4 mg capsule 1 cap PO BEDTIME albuterol sulfate 90 mcg/actuation HFA aerosol inhaler 2 puff PO Q6H PRN (Reason: wheezing) rosuvastatin 20 mg tablet 20 mg PO BEDTIME omeprazole 40 mg capsule,delayed release(DR/EC) 40 mg PO BID Qty: 60 0RF ferrous sulfate 325 mg (65 mg iron) tablet,delayed release (DR/EC) 1 tab PO DAILY (DME) lancets [OneTouch Delica Plus Lancet] 33 gauge misc See Rx Instructions topical QID Qty: 100 Rx Instructions: As directed (DME) blood-glucose meter [OneTouch Verio Reflect Meter] Misc See Rx Instructions .ROUTE .MEDSUPPLY Qty: 1 Rx Instructions: As directed (DME) OneTouch Verio test strips Strip See Rx Instructions Not Applicable QID Qty: 10 Rx Instructions: As directed losartan 25 mg tablet 50 mg PO DAILY cephalexin 500 mg capsule 500 mg PO QID nitroglycerin 0.4 mg tablet, sublingual sublingual insulin aspart U-100 [Novolog FlexPen U-100 Insulin] 100 unit/mL (3 mL) insulin pen 24 unit subcut TID 90 Days Qty: 135 3RF [place]jar[place] 7.5 mg/0.5 mL pen injector 7.5 mg subcut QWEEK Qty: 2 5RF insulin glargine [Lantus Solostar U-100 Insulin] 100 unit/mL (3 mL) insulin pen 56 unit subcut BEDTIME Qty: 15 5RF Discharge Date/Time: 02/23/24 15:25
[2024-02-23 12:48] LABS: Basophils Absolute Auto 0.1 X10*3/uL (0.0-0.2); Basophils Percent Auto 0.7 % (0-2); Eosinophils Absolute Auto 0.4 X10*3/uL (0.0-0.4); Eosinophils Percent Auto 3.9 % (0-4); Hematocrit 40.9 % (42.0-52.0); Hemoglobin 14.2 g/dl (14.0-18.0); Imm Gran Abs Auto 0.04 X10*3/uL (0.00-0.03); Imm Gran Pct Auto 0.4 % (0.0-0.4); Lymphocytes Absolute Auto 4.4 X10*3/uL (1.2-4.9); Lymphocytes Percent Auto 43.3 % (20-40); MANUAL DIFF FLAG NO; Mean Corpuscular HGB Conc 34.7 g/dl (31.0-36.0); Mean Corpuscular Hemoglobin 31.1 pg (27.0-33.0); Mean Corpuscular Volume 89.7 fL (80.0-98.0); Mean Platelet Volume 10.5 fL (9.4-12.4); Monocytes Absolute Auto 0.6 X10*3/uL (0.1-1.2); Monocytes Percent Auto 5.9 % (2-11); Neutrophils Absolute Auto 4.7 x10*3/uL (2.0-8.3); Neutrophils Percent Auto 45.8 % (45-73); Platelet Count 155 X10*3/uL (160-400); Red Blood Count 4.56 X10*6/uL (4.60-5.80); Red Cell Distribution Width 13.5 % (11.0-16.0); White Blood Count 10.2 X10*3/uL (4.8-10.8)
[2024-02-23 12:58] LABS: INTERNATIONAL NORM RATIO 0.9 (0.9-1.1); Prothrombin Time 10.9 SEC (10.9-12.4)
[2024-02-23 13:01] LABS: Partial Thromboplastin Time 31.8 SEC (26.0-36.8)
[2024-02-23 13:04] LABS: Alanine Aminotransferase 25 U/L (0-40); Albumin Level 4.4 g/dL (3.5-5.0); Alkaline Phosphatase 54 U/L (39-117); Anion Gap 12 (12-20); Aspartate Amino Transferase 22 U/L (5-37); Bilirubin Total 0.5 mg/dL (0.0-1.0); Blood Urea Nitrogen 13 mg/dL (9-16); Calcium 9.2 mg/dL (8.4-10.2); Carbon Dioxide 24 mmol/L (22-29); Chloride 110 mmol/L (96-108); Creatinine Clr Calc Pharmacy 67.2; Estimated Glomerular Filt Rate 58; Glucose Random 199 mg/dL (60-115); Magnesium 1.9 mg/dL (1.6-2.6); Potassium 4.9 mmol/L (3.3-5.1); Sodium 141 mmol/L (135-145)
[2024-02-23 13:10] LABS: B Type Natriuretic Peptide 309 pg/mL (<100)
[2024-02-23 13:11] LABS: Troponin-I High Sensitivity 19.7 ng/L (<3.5-35.0)
[2024-02-23 13:45] LABS: Influenza A PCR NEGATIVE (Negative); Influenza B PCR NEGATIVE (Negative); Resp Syncy Virus RNA Qual PCR NEGATIVE (Negative); SARS COV2 PCR INHOUSE NEGATIVE (Negative)
== END 2024-02-23 15:25 | disposition left against medical advice (07) ==
PROVIDERS: Physician Assistant Medical; Emergency Provider Emergency Medicine; PCP Nurse Practitioner Family
DX: R06.02 Shortness of breath (principal); R07.9 Chest pain, unspecified; E11.9 Type 2 diabetes mellitus without complications; I10 Essential (primary) hypertension; B19.20 Unspecified viral hepatitis C without hepatic coma; Z03.818 Encounter for observation for suspected exposure to other biological agents ruled out; Z79.899 Other long term (current) drug therapy
CPT/HCPCS: 0241U; 71046; 80053; 82947; 83036; 83735; 83880; 84484; 85025; 85610; 85730; 93005; 99212; 99283

== ENCOUNTER 2024-05-03 14:57 | Outpatient (AMB) | payer MEDICARE, SELFPAY ==
[2024-05-03 14:59] VITALS: BP 120/72; PULSE 63; BMI 36.9
--- NOTE | 2024-05-03 14:59 | MHC.OFFVIS ---
Vital Signs 05/03/24 14:59 Height 5 ft 10 in Weight 257 lb 7.999 oz BMI 36.9 BP 120/72 Blood Pressure Location Rt brachial Position Sitting Pulse 63 Pulse Source Pulse Oximeter Intake Visit Reasons: T2DM/CONFIRMED Intake Note: Patient presents today for D2MT follow up visit. 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 Accompanied by: Spouse Allergies adhesive tape Allergy (Mild, Verified 05/03/24 15:04) Redness of Skin Medication List - Last Reconciled 05/03/24 by Stephany Cody PA-C albuterol sulfate 90 mcg/actuation 2 puffs PO Q6H PRN ascorbic acid (vitamin C) (Vitamin C) 500 mg PO DAILY blood sugar diagnostic (Peak[employer]uch Verio test strips) As directed blood-glucose meter (Peak[employer]uch Verio Reflect Meter) As directed blood-glucose sensor (FreeStyle Tomer 3 Sensor device) As directed change every 14 days blood-glucose sensor (FreeStyle Tomer 3 Plus Sensor device) Use daily As directed to monitor glucose cephalexin 500 mg PO QID cholecalciferol (vitamin D3) (Vitamin D3) 125 mcg PO DAILY clopidogrel 75 mg PO DAILY ferrous sulfate 1 tab PO DAILY furosemide 40 mg PO DAILY insulin aspart U-100 (Novolog FlexPen U-100 Insulin aspart) 24 units (0.24 mL) subcut TID 90 days insulin glargine (Lantus Solostar U-100 Insulin) 56 units (0.56 mL) subcut BEDTIME insulin syringe-needle U-100 (BD Insulin Syringe) As directed lactobacillus combination no.4 (Probiotic) 3,000 mmu cells PO DAILY lancets (Peak[employer]uch Delica Plus Lancet) As directed losartan 50 mg PO DAILY nitroglycerin mg sublingual omeprazole 40 mg PO BID pen needle, diabetic (Comfort EZ Pen [place]) use 1 needle 5 times day day for insulin injections rosuvastatin 20 mg PO BEDTIME tamsulosin 1 cap PO BEDTIME tirzepatide (Mounjaro) 7.5 mg (0.5 mL) subcut QWEEK HPI HPI T2DM/CONFIRMED: Details: Patient is a 73-year-old male with a significant past medical history of type 2 diabetes, hypertension, hyperlipidemia, peripheral vascular disease, chronic kidney disease, ischemic cardiomyopathy, and chronic anemia presenting today for a follow up regarding his diabetes. Since our last visit he had 3 stents placed last week. Endo: His A1c was 7.2. He is currently on Mounjaro 7.5 mg weekly, Lantus 28 units BID, NovoLog 24 units 3 times a day He states that the lantus is ineffective. He states it wears off regularly and seems inconsistent. He has tried toujeo in the past and states it was also ineffective and caused headaches. He tells me he is also very frustrated because the NovoLog he feels this useless. He states that he will inject it and noticed that his blood sugars take a very long time, hours, to go down. When he was on Humalog he had much faster results and it seemed more effective for him. Sometimes when he uses NovoLog it also is painful to inject and sometimes causes headaches. CGM- usage 97%, GMI 7.7%. in range 49%, hyperglycemic 50%, 1 % -no hypoglycemic events. States that he has not had a low blood sugar in a long time and would correct this with orange juice. He has glucose tabs also. Complications-diabetic retinopathy, neuropathy, nephropathy, peripheral vascular disease CV: Blood pressure today in the office is 120/72. He is currently on furosemide 40 mg, losartan 50 mg. Cholesterol is controlled with Crestor 20 mg. Follows with cardiology, Dr. Quezada. Vasc: Follows with vascular surgery at [facility] Nephro: does not follow with nephrology. [facility] Medical History SOB (shortness of breath) Chest discomfort Cough Lower back pain Elevated troponin Obesity HCV (hepatitis C virus) Ischemic cardiomyopathy T2DM (type 2 diabetes mellitus) Spondylosis of lumbar spine History of non-ST elevation myocardial infarction (NSTEMI) NSTEMI (non-ST elevated myocardial infarction) Post-nasal drainage Type 2 diabetes mellitus with diabetic neuropathy Thyroid nodule Neuropathy Chronic anemia BPH (benign prostatic hyperplasia) Diabetic retinopathy PVD (peripheral vascular disease) Goiter Vitamin D deficiency HLD (hyperlipidemia) HTN (hypertension) Surgical History S/P placement of nerve stimulator H/O colonoscopy History of esophagogastroduodenoscopy (EGD) S/P aorto-bifemoral bypass surgery Hx of basal cell carcinoma excision Family History Father Diabetes Mother Diabetes Leukemia Skin cancer Alzheimers disease Dementia Social History Household Members: Spouse Housing: House Do you presently have visiting nurse or other home services: No Alcohol intake: never Patient Tobacco Use Status: Former Tobacco user Tobacco use type: Cigarette Cigarette Packs Per Day: 3 Years Smoked: 30 e-Cigarette/Vaping Use: Never Used Second Hand Smoke Exposure: No Advance Directives Date on File: 08/02/21 service: Yes Current occupational status: retired Physical Exam Const Orientation/consciousness: patient oriented x3 Neck Neck: Yes no lymphadenopathy Thyroid: Thyroid normal Carotids: bruit bilateral Resp Auscultation: clear to auscultation bilaterally Cardio Rate: regular rate Rhythm: regular rhythm Heart sounds: S1 normal heart sound present and S2 normal heart sound present Peripheral pulses: dorsalis pedis present Neuro General: patient oriented x3, gait normal and no focal motor deficits Extrem Other: Monofilament sensation intact bilaterally. Vibratory sensation intact bilaterally. Skin intact. General: Yes normal to inspection Results Reviewed Results Reviewed: Laboratory Tests 08/25/23 02/23/24 02/23/24 15:20 11:39 12:43 Sodium 141 Potassium 4.9 Chloride 110 H Carbon Dioxide 24 Anion Gap 12 BUN 13 Creatinine 1.22 Estim Creat Clear Calc 67.2 Estimated GFR 58 Hgb A1c (Clinic) 9.8 H 7.2 H Assessment & Plan Assessment & Plan (1) Uncontrolled type 2 diabetes mellitus with hyperglycemia, with long-term current use of insulin: Code(s): E11.65 - Type 2 diabetes mellitus with hyperglycemia; Z79.4 - [facility] (current) use of insulin Category: Medical Plan: I will increase Mounjaro to 10 mg as he is tolerating this well. He believes the Lantus is ineffective and has also failed Toujeo in the past. I will switch him to Tresiba. We will start 56 units of Tresiba nightly. We will switch from NovoLog to Humalog. He is not tolerating the NovoLog and does not feel that it was effective. As he felt that the Humalog was much more effective in the past we will start with 20 units 3 times a day with meals. One-month follow up. Sooner if needed (2) HTN (hypertension): Code(s): I10 - Essential (primary) hypertension Category: Medical Qualifiers: Hypertension type: unspecified Qualified Code(s): I10 - Essential (primary) hypertension Plan: WNL. Continue current regimen (3) HLD (hyperlipidemia): Code(s): E78.5 - Hyperlipidemia, unspecified Category: Medical Qualifiers: Hyperlipidemia type: unspecified Qualified Code(s): E78.5 - Hyperlipidemia, unspecified Plan: As above. Following with cardiology and vascular surgery. Medications: New tirzepatide (Mounjaro) 10 mg (0.5 mL) subcut QWEEK 2 mL 5RF blood-glucose sensor (FreeStyle Tomer 3 Plus Sensor device) Use daily As directed to monitor glucose 2 ea 5RF E08.29 - Diabetes mellitus due to underlying condition with other diabetic kidney complication, R80.9 - Proteinuria, unspecified, Z79.4 - [facility] (current) use of insulin insulin degludec (Tresiba FlexTouch U-100 insulin) 56 units (0.56 mL) subcut DAILY 90 days 50.4 mL 3RF insulin lispro (Humalog KwikPen (U-100) Insulin) 20 units (0.2 mL) subcut TID 15 mL 5RF Discontinued blood-glucose sensor (FreeStyle Tomer 3 Sensor device) Discontinued Reason: Doctor's Order As directed change every 14 days 2 ea 5RF insulin glargine (Lantus Solostar U-100 Insulin) Discontinued Reason: Doctor's Order 56 units (0.56 mL) subcut BEDTIME 15 mL 5RF E11.40 - Type 2 diabetes mellitus with diabetic neuropathy, unspecified blood-glucose sensor (FreeStyle Tomer 3 Plus Sensor device) Discontinued Reason: Doctor's Order Use daily As directed to monitor glucose 2 ea 5RF E08.29 - Diabetes mellitus due to underlying condition with other diabetic kidney complication, R80.9 - Proteinuria, unspecified, 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
[2024-05-03 15:10] LABS: Glucose, Whole Blood 113 mg/dL (60-115)
== END 2024-05-03 15:34 | disposition home or self-care (01) ==
PROVIDERS: PCP Registered Nurse; Visit Provider Physician Assistant
DX: E11.65 Type 2 diabetes mellitus with hyperglycemia (principal); Z79.4 Long term (current) use of insulin; I10 Essential (primary) hypertension; E78.5 Hyperlipidemia, unspecified

== ENCOUNTER → 2024-05-03 14:57 | Outpatient (BNVA) | payer MEDICARE, SELFPAY | PROVIDERS: PCP Registered Nurse; Visit Provider Physician Assistant | DX: E11.65 Type 2 diabetes mellitus with hyperglycemia (principal) | CPT/HCPCS: 82947; 99212 ==

== ENCOUNTER 2024-05-31 11:02 | Outpatient (AMB) | payer MEDICARE, SELFPAY ==
--- NOTE | 2024-05-31 11:05 | A.OFFVIS_ITS ---
Vital Signs 05/31/24 11:08 Height 5 ft 10 in Weight 260 lb 2.327 oz BMI 37.3 BP 122/74 Blood Pressure Location Rt brachial Position Sitting Pulse 69 Pulse Source Pulse Oximeter Intake Visit Reasons: DM/Left vm Intake Note: Patient presents today for a follow-up on Type 2 Diabetes Mellitus: Last Diabetic eye exam was on: 03/02/2024 Last Podiatry exam was on: Does not see a [employer] Most recent HbA1c: 7.8%, 05/31/2024 Random Glucose- 270 mg/dL, Today Surgical Services Manager Required: No Accompanied by: Self / Same As Patient Allergies adhesive tape Allergy (Mild, Verified 05/31/24 11:18) Redness of Skin Medication List - Last Reconciled 05/31/24 by Stephany Cody PA-C albuterol sulfate 90 mcg/actuation 2 puffs PO Q6H PRN ascorbic acid (vitamin C) (Vitamin C) 500 mg PO DAILY blood sugar diagnostic (LiterablyTouch Verio test strips) As directed blood-glucose meter ([employer] Verio Reflect Meter) As directed blood-glucose sensor (FreeStyle Tomer 3 Plus Sensor device) Use daily As directed to monitor glucose cephalexin 500 mg PO QID cholecalciferol (vitamin D3) (Vitamin D3) 125 mcg PO DAILY clopidogrel 75 mg PO DAILY ferrous sulfate 1 tab PO DAILY furosemide 40 mg PO DAILY insulin degludec (Tresiba FlexTouch U-100 insulin) 56 units (0.56 mL) subcut DAILY 90 days insulin lispro (Admelog SoloStar U-100 Insulin lispro) 24 units (0.24 mL) subcut TID insulin syringe-needle U-100 (BD Insulin Syringe) As directed lactobacillus combination no.4 (Probiotic) 3,000 mmu cells PO DAILY lancets ([employer] Delica Plus Lancet) As directed losartan 50 mg PO DAILY nitroglycerin mg sublingual omeprazole 40 mg PO BID pen needle, diabetic (Comfort EZ Pen [place]) use 1 needle 5 times day day for insulin injections rosuvastatin 20 mg PO BEDTIME tamsulosin 1 cap PO BEDTIME HPI HPI DM/Left vm: Details: Patient is a 73-year-old male with a significant past medical history of type 2 diabetes, hypertension, hyperlipidemia, peripheral vascular disease, chronic kidney disease, ischemic cardiomyopathy, and chronic anemia presenting today for a follow up regarding his diabetes. Since our last visit he had 3 stents placed last week. Endo: His A1c is 7.8. He is currently on Mounjaro 10 mg weekly, tresiba 56 units, admelog 24 units 3 times a day, and Jardiance 10 mg daily -Not yet switched from novolog to admelog. He states that he has also not yet tried the Tresiba. His states that he is very cheap and has refused to waste extra medicine. He tells me that he will start to take it. -He states that the lantus is ineffective. He states it wears off regularly and seems inconsistent. He has tried toujeo in the past and states it was also ineffective and caused headaches. He tells me he is also very frustrated because the NovoLog he feels this useless. He states that he will inject it and noticed that his blood sugars take a very long time, hours, to go down. When he was on Humalog he had much faster results and it seemed more effective for him. Sometimes when he uses NovoLog it also is painful to inject and sometimes causes headaches. CGM- usage 93%, GMI 8.5 %. in range 18 %, hyperglycemic 62 %, very hyperglycemic 20% -no hypoglycemic events. States that he has not had a low blood sugar in a long time and would correct this with orange juice. He has glucose tabs also. Complications-diabetic retinopathy, neuropathy, nephropathy, peripheral vascular disease CV: Blood pressure today in the office is 122/74. He is currently on furosemide 40 mg, losartan 50 mg. Cholesterol is controlled with Crestor 20 mg. Follows with cardiology, Dr. Quezada. s/p recent stents and feeling well. Vasc: Follows with vascular surgery at [facility] Nephro: does not follow with nephrology. [facility] Medical History SOB (shortness of breath) Chest discomfort Cough Lower back pain Elevated troponin Obesity HCV (hepatitis C virus) Ischemic cardiomyopathy T2DM (type 2 diabetes mellitus) Spondylosis of lumbar spine History of non-ST elevation myocardial infarction (NSTEMI) NSTEMI (non-ST elevated myocardial infarction) Post-nasal drainage Type 2 diabetes mellitus with diabetic neuropathy Thyroid nodule Neuropathy Chronic anemia BPH (benign prostatic hyperplasia) Diabetic retinopathy PVD (peripheral vascular disease) Goiter Vitamin D deficiency HLD (hyperlipidemia) HTN (hypertension) Surgical History S/P placement of nerve stimulator H/O colonoscopy History of esophagogastroduodenoscopy (EGD) S/P aorto-bifemoral bypass surgery Hx of basal cell carcinoma excision Family History Father Diabetes Mother Diabetes Leukemia Skin cancer Alzheimers disease Dementia Social History Household Members: Spouse Housing: House Do you presently have visiting nurse or other home services: No Alcohol intake: never Patient Tobacco Use Status: Former Tobacco user Tobacco use type: Cigarette Cigarette Packs Per Day: 3 Years Smoked: 30 e-Cigarette/Vaping Use: Never Used Second Hand Smoke Exposure: No Advance Directives Date on File: 08/02/21 service: Yes Current occupational status: retired Physical Exam Vital Signs: BMI result Body Mass Index 37.3 Const Orientation/consciousness: patient oriented x3 HEENT Ears: hearing grossly normal bilaterally Neck Thyroid: Thyroid normal Lymphatic: no lymphadenopathy noted Resp Auscultation: clear to auscultation bilaterally Cardio Rate: regular rate Rhythm: regular rhythm Heart sounds: S1 normal heart sound present and S2 normal heart sound present Skin General skin exam: no rashes or lesions noted Neuro General: patient oriented x3, gait normal and no focal motor deficits Office Procedures Glucose Monitoring Details Details: see hpi 95609 - Glucose monitoring, continuous-physician I&R Procedure code (CPT) selection complete Results AMB Hemoglobin A1c AMB Hemoglobin A1c 7.8 % Last Edit by EVERARDO De Leon on 05/31/24 11:27 Assessment & Plan Assessment & Plan (1) Uncontrolled type 2 diabetes mellitus with hyperglycemia, with long-term current use of insulin: Code(s): E11.65 - Type 2 diabetes mellitus with hyperglycemia; 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 Category: Medical Plan: increase tresiba to 65 units (new rx for the u200) switch from novolog to admelog increase mounjaro to 12.5 mg weekly increase jardiance to 25 mg daily check labs prior to appointment f.u 1 month or sooner if needed (2) HLD (hyperlipidemia): Code(s): E78.5 - Hyperlipidemia, unspecified Category: Medical Qualifiers: Hyperlipidemia type: unspecified Qualified Code(s): E78.5 - Hyperlipidemia, unspecified Plan: Continue current regimen (3) HTN (hypertension): Code(s): I10 - Essential (primary) hypertension Category: Medical Qualifiers: Hypertension type: unspecified Qualified Code(s): I10 - Essential (primary) hypertension Plan: Continue current regimen Orders: Orders AMB Hemoglobin A1c Today E11.65 - Type 2 diabetes mellitus with hyperglycemia, 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 Basic Metabolic Panel Today E11.65 - Type 2 diabetes mellitus with hyperglycemia, I10 - Essential (primary) hypertension, 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 Microalbumin, Random (w Creat) Today E11.65 - Type 2 diabetes mellitus with hyperglycemia, I10 - Essential (primary) hypertension, 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 Medications: New insulin degludec (Tresiba FlexTouch U-200 insulin) 65 units (0.325 mL) subcut DAILY 30 days 18 mL 1RF empagliflozin (Jardiance) 25 mg PO QAM 90 tabs 3RF empagliflozin (Jardiance) 25 mg PO QAM 90 tabs 3RF tirzepatide (Mounjaro) 12.5 mg (0.5 mL) subcut QWEEK 2 mL 3RF tirzepatide (Mounjaro) 12.5 mg (0.5 mL) subcut QWEEK 2 mL 3RF insulin degludec (Tresiba FlexTouch U-200 insulin) 65 units (0.325 mL) subcut DAILY 30 days 18 mL 1RF Refilled insulin lispro (Admelog SoloStar U-100 Insulin lispro) 24 units (0.24 mL) subcut TID 15 mL 3RF insulin lispro (Admelog SoloStar U-100 Insulin lispro) 24 units (0.24 mL) subcut TID 15 mL 3RF Discontinued insulin degludec (Tresiba FlexTouch U-100 insulin) Discontinued Reason: Duplicate 56 units (0.56 mL) subcut DAILY 90 days 50.4 mL 3RF Patient Instructions: increase tresiba to 65 units (new rx for the u200) switch from novolog to admelog increase mounjaro to 12.5 mg weekly increase jardiance to 25 mg daily check labs prior to appointment f.u 1 month or sooner if needed Coding Level of Care Code Est Pt Level 4 (72739) Diagnoses Uncontrolled type 2 diabetes mellitus with hyperglycemia, with long-term current use of insulin E11.65; Z79.4 Hyperlipidemia, unspecified hyperlipidemia type E78.5 Hyperlipidemia type: unspecified Hypertension, unspecified type I10 Hypertension type: unspecified CPT Codes Details - CPT: 62328 - Glucose monitoring, continuous-physician I&R ([id number])
--- OUTSIDE RECORDS SUMMARY | 2024-05-31 11:07 | XMS_ITS ---
Author Organization [facility] Address [address] [place] [id number] Care Team Providers Care Weaver Hand Name Role Phone CHRISTIANO RIZO Primary Care Provider [phone] REASON FOR VISIT f/u meds SOCIAL HISTORY Sex Assigned At : Social History Observation Description Sex Assigned At Male Encounters Encounter Location Date Provider Diagnosis [address] [phone] 11/06/2023 CHRISTIANO RIZO PLAN OF TREATMENT No Information Progress Notes * JORGE FLOWER SrDOB:09/1950 (73 yo M)Acc No.[id number]:11/06/2023 Progress Note Patient:??JORGE FLOWER Sr Provider:??Christiano Rizo DNP :1950?Age:73 Y?Sex:Ma le Date:11/06/2023 Phone: Address:[address] [place], [place] [id number] Subjective: * Chief Complaints: * ?1. F/u meds. * Medical History:?? Objective: Assessment: Plan: * Treatment: * Billing Information: * Visit Code:?? * Procedure Codes:?? * Sign off status: Pending * Provider:??Christiano Rizo DNP Date:??0 11/06/2023
[2024-05-31 11:08] VITALS: BP 122/74; PULSE 69; BMI 37.3
--- OUTSIDE RECORDS SUMMARY | 2024-05-31 11:08 | XMS_ITS ---
Author Organization [facility] Address [address], [place] [id number] Care Team Providers Care Remote Medical Coder Name Role Phone CHRISTIANO ALANIS Primary Care Provider [phone] ALLERGIES No Known Allergies REASON FOR REFERRAL Reason please see MRI order in DOS 10/06/23 Diagnosis 1 Spondylolisthesis, l umbosacral region (M43.17) Referral Organization [facility] Referring Provider First Name CHRISTIANO Referring Provider Last Name DARRIUS Referring Provider Speciality Nurse Prac titioner Referred Organization [facility] Referred Address [address], [id number], Referred Provider Specialty Radiology General Notes BARBARA NOLASCOAIL 0 10/13/2023 10:48:24 AM >order form, demographics, insurance info, order and office note faxed to Jennifer [phone] Referral Priority Routine REASON FOR VISIT F/U MEDS MEDICATIONS Medication SIG (Take, Route, Frequency, Duration) Notes Start Date End Date Status PREGABALIN 150MG CAPSULES TAKE 1 CAPSULE BY MOUTH THREE TIMES DAILY PREGABALIN 150MG CAPSULES *Reorder from [employer] for eRx and Interaction Alerts* 10/15/2021 Not-Taking Mounjaro 5 MG/0.5ML as directed Subcutaneous once per week for 30 days 10/06/2023 Active Dexcom G7 Sensor - DIRECTED FOR CONT GLUCOSE MONITORING for 180 days 05/05/2023 Not-Taking Mounjaro 5 MG/0.5ML 5 MG Subcutaneous ONCE A WEEK for 90 days 05/05/2023 Not-Taking Ozempic (2 MG/DOSE) 8 MG/3ML as directed Subcutaneous Not-Taking Celecoxib 200 MG 1 capsule with food Orally Once a day for 90 days Not-Taking traMADol HCl 50 MG 1-2 tabs Orally three times a day for 7 days 07/16/2023 Active Mounjaro 2.5 MG/0.5ML 2.5 mg Subcutaneous once a week for 30 days 08/13/2023 Active FERROUS SULFATE 325MG EC TABS RED TAKE 1 TABLET BY MOUTH DAILY FERROUS SULFATE 325MG EC TABS RED *Reorder from [employer] for eRx and Interaction Alerts* 08/17/2021 Active Morphine Sulfate ER 60 MG 1 capsule Orally Once a day Not-Taking ROSUVASTATIN CALCIUM 20 MG TAKE 1 TABLET BY MOUTH EVERY DAY ROSUVASTATIN CALCIUM 20 MG *Reorder from [employer] for eRx and Interaction Alerts* 05/09/2021 Active Tamsulosin HCl 0.4 MG TAKE 1 CAPSULE BY MOUTH EVERY DAY IN THE EVENING for 90 Active Jardiance 10 MG 1 tablet Orally Once a day for 90 days Active BD Pen Needle Short U/F 31G X 8 MM USE 1 NEEDLE FIVE TIMES DAILY FOR INSULIN INJECTIONS for 20 Active Losartan Potassium 100 MG 1 tablet Orally Once a day for 90 days 05/05/2023 Active OMEPRAZOLE 40MG CAPSULES TAKE 1 CAPSULE BY MOUTH TWICE DAILY OMEPRAZOLE 40MG CAPSULES *Reorder from [employer] for eRx and Interaction Alerts* 10/31/2021 Active Ipratropium [place] 0.03 % USE 2 SPRAYS IN EACH NOSTRIL 2 TO 3 TIMES DAILY for 84 Active Clopidogrel Bisulfate 75 MG TAKE 1 TABLET BY MOUTH EVERY DAY Oral CLOPIDOGREL 75 MG TABLET 09/16/2021 Active Albuterol Sulfate HFA 108 (90 Base) MCG/ACT INHALE 2 PUFFS BY MOUTH EVERY 6 HOURS NEEDED FOR WHEEZING OR SHORTNESS OF BREATH Inhalation ALBUTEROL HFA INH (200 PUFFS)8.5GM 10/02/2021 Active Cephalexin 500 MG 1 tab by mouth once daily for 90 days Active Vitamin D3 125 MCG (5000 UT) as directed Orally 06/17/2022 Active Probiotic - as directed Orally Active Metoprolol Succinate 100 MG 1.5 capsules Orally Once a day Active Vitamin C 500 MG as directed Orally Active Nitroglycerin 0.4 MG as directed Sublingual Up to 3x's a day as needed Active SOCIAL HISTORY Tobacco Use: Social History Observation Description Date Details (start date - stop date) Former Smoker NA - 06/02/1992 Sex Assigned At : Social History Observation Description Sex Assigned At Male Tobacco Use/Smoking Question Answer Notes Tobacco use: former smoker When did you stop smoking? 06/02/1992 How long has it been since you last smoked? > 10 years Section Notes: Lives in [place], [place] with nathalia harrison. VITAL SIGNS Blood pressure systolic 138 mm Hg 10/06/19 24 Blood pressure diastolic 82 mm Hg 024 Heart Rate 64 /min 10/06/2023 Height 70 in 10/06/2023 Weight 233.0 lbs 10/06/2023 BMI 33.43 kg/m2 10/06/2023 Oximetry 97 % 10/06/2023 Height-cm 177.80 cm 10/06/2023 Weight-kg 105.69 kg 10/06/2023 Encounters [facility]counter [facility] [address] [phone] 10/06/2023 CHRISTIANO ALANIS Essential (primary) hypertension I10 ; Type 2 diabetes mellitus with diabetic chronic kidney disease E11.22 ; Erectile dysfunction due to diseases classified elsewhere N52.1 ; Non-ST elevation (NSTEMI) myocardial infarction I21.4 and Spondylolisthesis, lumbosacral region M43.17 ASSESSMENTS Encounter Date Diagnosis Assessment Notes Treatment Notes Treatment Clinical Notes Section Notes 10/06/2023 Essential (primary) hypertension (ICD-10 - I10) Condition is stable and well controlled on current treatment. No changes made, medication(s) refilled as indicated 10/06/2023 Type 2 diabetes mellitus with diabetic chronic kidney disease (ICD-10 - E11.22) Condition is stable and well controlled on current treatment. No changes made, medication(s) refilled as indicated Having trouble finding luke, we will send to [facility] in [place] A1C down to 6.9, and average BS are 159 according to his CGM 10/06/2023 Erectile dysfunction due to diseases classified elsewhere (ICD-10 - N52.1) Condition is stable and well controlled on current treatment. No changes made, medication(s) refilled as indicated 10/06/2023 Non-ST elevation (NSTEMI) myocardial infarction (ICD-10 - I21.4) Condition is stable and well controlled on current treatment. No changes made, medication(s) refilled as indicated 10/06/2023 Spondylolisthesis , lumbosacral region (ICD-10 - M43.17) 10/06/2023 Other Total time spen t with patient 32 minutes which includes face to face visit, education and coordination of care. PLAN OF TREATMENT Medication Medication Name Sig Start Date Stop Date Notes Mounjaro 5 MG/0.5ML as directed Subcutan eous once per week for 30 days 10/06/2023 Treatment Notes Assessment Notes Essential (primary) hypertension Conditi on is stable and well controlled on current treatment. No changes made, medication(s) refilled as indicated Type 2 diabetes mellitus wit h diabetic chronic kidney disease Condition is stable and well controlled on current treatment. No changes made, medication(s) refilled as indicated Having trouble finding mounjaro, we will send to [facility] in [place] A1C down to 6.9, and average BS are 159 according to his CGM Erectile dysfunction due to diseases classified elsewhere Condition is stable and well controlled on current treatment. No changes made, medication(s) refilled as indicated Non-ST elevation (NSTEMI) my ocardial infarction Condition is stable and well controlled on current treatment. No changes made, medication(s) refilled as indicated Other Total time spent wit h patient 32 minutes which includes face to face visit, education and coordination of care. Pending Test Test Name Order Date MRI : Lumbosacral Spines 10/06/2023 Referrals Referral Date Details please see MRI order in DOS 10/06/23 , [address] [place] [address] [place], [id number], @[employer], Next Appt Details Follow Up: 4 Weeks, Reason: f/u BP Progress Notes * CAESAR FLOWER SrDOB:09/1950 (73 yo M)Acc No.[id number]:10/06/2023 Progress Notes Patient:??CAESAR FLOWER Sr Provider:??Christiano Alanis DNP :1950?Age:73 Y?Sex:Ma le Date:10/06/2023 Phone: Address:[address] [place] [address] Subjective: * Chief Complaints: * ?F/U MEDS * HPI: ?Patient Care Team:?Store Person:??Dr. Quezada @ [facility] ?Dr. Gould - Cardiac Surgeon.?Electronics Processing Supervisor:??Dr. Torres @ [facility].?Surgeon:??Dr. Mercedes @ [facility].? Providers/Specialists: Infectious Disease - Dr. Latham @ [facility]. ?Visit info:? Caesar presents in the office today for a medication check in. Patient states that at last visit ot [facility] was told that he has pancreatitis. * ROS:?all systems reviewed and are non-contributory unless specified in the HPI. * Medical History:?? * Surgical History:??Artobifem oral Bypass Repair Graft Arthroscopy knee * Hospitalization/Major Diagno stic Procedure:?? * Family History:??Father: dec eased, Diabetes, Blood disorder (rare).??Mother: , Leukemia.??Paternal Grandmother: , Diabetes.??Brother: alive, Unknown health history.??Sister: alive, No known health concerns.?? * Social History:?Tobacco Use:?Tobacco Use/Smoking?Tobacco use:??former smoker ?When did you stop smoking???06/02/1992 ?How long has it been since you last smoked???> 10 years ?Migrated Social History:?Migrated Social History: Smoking Status:Former smoker, [[id number]:[id number]], for 30yrs. ?Drugs/Alcohol:?Do you drink alcohol?: No. ?Lives in [place], [place] with . * Medications:??TakingNitrogly cerin 0.4 MG Tablet Sublingual as directed Sublingual , Notes to Pharmacist: Up to 3x's a day as neededMetoprolol Succinate 100 MG Capsule ER 24 Hour Sprinkle 1.5 capsules Orally Once a day Vitamin C 500 MG Capsule as directed Orally Vitamin D3 125 MCG (5000 UT) Capsule as directed Orally Probiotic - Tablet Delayed Release as directed Orally Clopidogrel Bisulfate 75 MG Tablet TAKE 1 TABLET BY MOUTH EVERY DAY Oral , Notes to Pharmacist: CLOPIDOGREL 75 MG TABLETAlbuterol Sulfate HFA 108 (90 Base) MCG/ACT Aerosol Solution INHALE 2 PUFFS BY MOUTH EVERY 6 HOURS NEEDED FOR WHEEZING OR SHORTNESS OF BREATH Inhalation , Notes to Pharmacist: ALBUTEROL HFA INH (200 PUFFS)8.5GMOMEPRAZOLE 40MG CAPSULES TAKE 1 CAPSULE BY MOUTH TWICE DAILY , Notes to Pharmacist: OMEPRAZOLE 40MG CAPSULES *Reorder from [employer] for eRx and Interaction Alerts*Ipratropium [place] 0.03 % Solution USE 2 SPRAYS IN EACH NOSTRIL 2 TO 3 TIMES DAILY Cephalexin 500 MG Tablet 1 tab by mouth once daily BD Pen Needle Short U/F 31G X 8 MM Miscellaneous USE 1 NEEDLE FIVE TIMES DAILY FOR INSULIN INJECTIONS Losartan Potassium 100 MG Tablet 1 tablet Orally Once a day Tamsulosin HCl 0.4 MG Capsule TAKE 1 CAPSULE BY MOUTH EVERY DAY IN THE EVENING Jardiance 10 MG Tablet 1 tablet Orally Once a day , stop date 4ROSUVASTATIN CALCIUM 20 MG TAKE 1 TABLET BY MOUTH EVERY DAY , Notes to Pharmacist: ROSUVASTATIN CALCIUM 20 MG *Reorder from [employer] for eRx and Interaction Alerts*FERROUS SULFATE 325MG EC TABS RED TAKE 1 TABLET BY MOUTH DAILY , Notes to Pharmacist: FERROUS SULFATE 325MG EC TABS RED *Reorder from [employer] for eRx and Interaction Alerts*traMADol HCl 50 MG Tablet 1-2 tabs Orally three times a day Mounjaro 2.5 MG/0.5ML Solution Pen-injector 2.5 mg Subcutaneous once a week Taking Nitroglycerin 0.4 MG Tablet Sublingual as directed Sublingual , Notes to Pharmacist: Up to 3x's a day as neededTaking Metoprolol Succinate 100 MG Capsule ER 24 Hour Sprinkle 1.5 capsules Orally Once a day Taking Vitamin C 500 MG Capsule as directed Orally Taking Vitamin D3 125 MCG (5000 UT) Capsule as directed Orally Taking Probiotic - Tablet Delayed Release as directed Orally Taking Clopidogrel Bisulfate 75 MG Tablet TAKE 1 TABLET BY MOUTH EVERY DAY Oral , Notes to Pharmacist: CLOPIDOGREL 75 MG TABLETTaking Albuterol Sulfate HFA 108 (90 Base) MCG/ACT Aerosol Solution INHALE 2 PUFFS BY MOUTH EVERY 6 HOURS NEEDED FOR WHEEZING OR SHORTNESS OF BREATH Inhalation , Notes to Pharmacist: ALBUTEROL HFA INH (200 PUFFS)8.5GMTaking OMEPRAZOLE 40MG CAPSULES TAKE 1 CAPSULE BY MOUTH TWICE DAILY , Notes to Pharmacist: OMEPRAZOLE 40MG CAPSULES *[facility] and [facility]*Taking Ipratropium [place] 0.03 % Solution USE 2 SPRAYS IN EACH NOSTRIL 2 TO 3 TIMES DAILY Taking Cephalexin 500 MG Tablet 1 tab by mouth once daily Taking BD Pen Needle Short U/F 31G X 8 MM Miscellaneous USE 1 NEEDLE FIVE TIMES DAILY FOR INSULIN INJECTIONS Taking Losartan Potassium 100 MG Tablet 1 tablet Orally Once a day Taking Tamsulosin HCl 0.4 MG Capsule TAKE 1 CAPSULE BY MOUTH EVERY DAY IN THE EVENING Taking Jardiance 10 MG Tablet 1 tablet Orally Once a day , stop date 12/14/2023Taking ROSUVASTATIN CALCIUM 20 MG TAKE 1 TABLET BY MOUTH EVERY DAY , Notes to Pharmacist: ROSUVASTATIN CALCIUM 20 MG *Reorder from [employer] [facility] for eRx and Interaction Alerts*Taking FERROUS SULFATE 325MG EC TABS RED TAKE 1 TABLET BY MOUTH DAILY , Notes to Pharmacist: FERROUS SULFATE 325MG EC TABS RED *[facility] and Interaction [facility]s*Taking traMADol HCl 50 MG Tablet 1-2 tabs Orally three times a day Taking Mounjaro 2.5 MG/0.5ML Solution Pen-injector 2.5 mg Subcutaneous once a week Not-TakingCelecoxib 200 MG Capsule 1 capsule with food Orally Once a day Morphine Sulfate ER 60 MG Capsule Extended Release 24 Hour 1 capsule Orally Once a day Ozempic (2 MG/DOSE) 8 MG/3ML Solution Pen-injector as directed Subcutaneous Dexcom G7 Sensor - Miscellaneous DIRECTED FOR CONT GLUCOSE MONITORING Mounjaro 5 MG/0.5ML Solution Pen-injector 5 MG Subcutaneous ONCE A WEEK , stop date 12/14/2023REGABALIN 150MG CAPSULES TAKE 1 CAPSULE BY MOUTH THREE TIMES DAILY , Notes to Pharmacist: PREGABALIN 150MG CAPSULES *Reorder from [employer] for eRx and Interaction Alerts*Medication List reviewed and reconciled with the patientNot-Taking Celecoxib 200 MG Capsule 1 capsule with food Orally Once a day Not-Taking Morphine Sulfate ER 60 MG Capsule Extended Release 24 Hour 1 capsule Orally Once a day Not-Taking Ozempic (2 MG/DOSE) 8 MG/3ML Solution Pen-injector as directed Subcutaneous Not-Taking Dexcom G7 Sensor - Miscellaneous DIRECTED FOR CONT GLUCOSE MONITORING Not-Taking Mounjaro 5 MG/0.5ML Solution Pen-injector 5 MG Subcutaneous ONCE A WEEK , stop date 12/14/2023Not-Taking PREGABALIN 150MG CAPSULES TAKE 1 CAPSULE BY MOUTH THREE TIMES DAILY , Notes to Pharmacist: PREGABALIN 150MG CAPSULES *Reorder from [employer] for eRx and Interaction Alerts*Medication List reviewed and reconciled with the patient * Allergies:??N.K.D.A.no[Aller gies Verified] Objective: * Vitals:??BP:138/82mm Hg, HR: 64/min, Oxygen sat %:97%, Wt:233.0lbs, Wt-k.69 kg, Ht: 70 in, Ht-cm: 177.80 cm, BMI:33.43Index, Body Surface Area: 2.28. * Physical Examination:?GEN: NAD, speaking in full complete sentences, thoughts clear and appropriate ?RESP: nonlabored breathing, no audible SOB/Wheezing ?NEURO: AO x 3 ?PSYCH: judgment/insight intact, NL mood/affect. 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 Plan: * Treatment: 2.??Type 2 diabetes mellitus with diabetic chronic kidney disease?? Start Mounjaro Solution Pen-injector, 5 MG/0.5ML, as directed, Subcutaneous, once per week, 30 days, 4, Refills 0.? Notes: Condition is stable and well controlled on current treatment. No changes made, medication(s) refilled as indicated Having trouble finding mounjaro, we will send to [facility] in [place] A1C down to 6.9, and average BS are 159 according to his CGM? 3.??Erectile dysfunction due to diseases classified elsewhere?? Notes: Condition is stable and well controlled on current treatment. No changes made, medication(s) refilled as indicated? 4.??Non-ST elevation (NSTEMI ) myocardial infarction?? Notes: Condition is stable and well controlled on current treatment. No changes made, medication(s) refilled as indicated? 5.??Spondylolisthesis, lumbo sacral region?Imaging: MRI : Lumbosacral Spines ? Referral To:Radiology ?Reason:please see MRI order in DOS 10/06/23 6.??Others?? Notes: Total time spent with patient 32 minutes which includes face to face visit, education and coordination of care.? * Procedure Codes:?? * Preventive Medicine:?Last CPE: 01/31/2022 @ [facility] ?DEXA: Yes, in past Colonoscopy: 3 months ago, Dr Torres @ [facility] ?Endoscopy: 2021 w/Dr Torres ?Covid Vac: Yes ?Flu Vac: Yes ?PV: Yes ?Shingles Vac: Yes. * Follow Up:??4 Weeks (Reason: f/u BP) * Billing Information: * Visit Code:?? [id number] Office Visit, Est Pt., Level 3. * Procedure Codes:?? * Sign off status: Completed true * Provider:??Christiano Alanis DNP Date:??0 10/06/2023 History and Physical Notes * HPI (History of Present Illness) Category Sub-Category Detail Notes Category Not es Patient Care Team Store Person: Dr. Quezada @ [facility] Dr. Gould - Cardiac Surgeon Providers/Specialist s: Infectious Disease - Dr. Latham @ [facility] Surgeon: Dr. Mercedes @ [facility] Electronics Processing Supervisor: Dr. Torres @ [facility] Visit info Caesar presents in the office today for a medication check in. Patient states that at last visit ot [facility] was told that he has pancreatitis. Physical Examination Category Sub-Category Detail Notes Section Note s GEN: NAD, speaking in full complete sentences, thoughts clear and appropriate RESP: nonlabored breathing, no audible SOB/Wheezing NEURO: AO x 3 PSYCH: judgment/insight intact, NL mood/affect Consultation Request Notes Referral Date Referring Provider Referred Provider Not es 10/06/2023 CHRISTIANO ALANIS , please see MRI order in DOS 10/06/23
--- OUTSIDE RECORDS SUMMARY | 2024-05-31 11:08 | XMS_ITS ---
Author Organization [facility] Address [address] [place] [address] [place] [phone] Care Team Providers Care Boat Dispatcher Name Role Phone Jeanette N.Connie Raymond Primary Care Provider Lauren Torres Jr, Yaya Andersen REASON FOR VISIT Needs refill MEDICATIONS Medication SIG (Take, Route, Fr equency, Duration) Notes Start Date End Date Status Omeprazole 40 MG 1 capsule Orally Twi ce a day for 30 days 09/24/2021 Active Encounters Encounter Location Date Provider Diagnosis [facility] [address] [place] [phone] 09/01/2023 Yaya Torres Jr PLAN OF TREATMENT Medication Medication Name Sig Start Date Stop Date Notes Omeprazole 40 MG 1 capsule Orally Twice a day for 30 days 09/24/2021 Next Appt Details Provider Name:Yaya noble Jr, 01/05/2025 11:10:00 AM, [address] [place] [address], [address], [place], [phone],
--- OUTSIDE RECORDS SUMMARY | 2024-05-31 11:08 | XMS_ITS | Patient Health Record ---
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 would be going to [facility] for imaging. Referral Priority Urgent Reason Please refer patient for PT at [facility] in [place] Diagnosis 1 Pain of right hip (M 25.551) Diagnosis 2 Sciatica of right si de (M54.31) [facility] Referring Provider First Name CHRISTIANO Referring Provider Last Name OMAHA Referring Provider Speciality Nurse Maribell umana Referred Organization [facility] Referred Address [address], [place],[id number], Referred Provider Specialty Physical Med icine and Rehabilitation General Notes CHAYITO NOLASCO 0 08/06/2023 10:43:01 AM >order faxed to [facility] [phone] Referral Priority Routine Reason please see MRI order in DOS 10/06/23 Diagnosis 1 Spondylolisthesis, l umbosacral region (M43.17) [facility] Referring Provider First Name CHRISTIANO Referring Provider Last Name DARRIUS Referring Provider Speciality Nurse Maribell umana [facility] Referred Address [address] [place], [place] [address]GERDA ROB[place]FOND [place], [place],[id number] Referred Provider Specialty Radiology General Notes BARBARA NOLASCOAIL 0 10/13/2023 10:48:24 AM >order form, demographics, insurance info, order and office note faxed to [facility] [phone] Referral Priority Routine MEDICATIONS Medication SIG (Take, Route, Frequency, Duration) Notes Start Date End Date Status OMEPRAZOLE 40MG CAPSULES TAKE 1 CAPSULE BY MOUTH TWICE DAILY OMEPRAZOLE 40MG CAPSULES *Reorder from [employer] for eRx and Interaction Alerts* 10/31/2021 Active Celecoxib 200 MG 1 capsule with food Orally Once a day for 90 days Not-Taking Ipratropium Pelican 0.03 % USE 2 SPRAYS IN EACH NOSTRIL 2 TO 3 TIMES DAILY for 84 Active Clopidogrel Bisulfate 75 MG TAKE 1 TABLET BY MOUTH EVERY DAY Oral CLOPIDOGREL 75 MG TABLET 09/16/2021 Active traMADol HCl 50 MG 1-2 tabs Orally three times a day for 7 days 07/16/2023 Active Albuterol Sulfate HFA 108 (90 Base) MCG/ACT INHALE 2 PUFFS BY MOUTH EVERY 6 HOURS NEEDED FOR WHEEZING OR SHORTNESS OF BREATH Inhalation ALBUTEROL HFA INH (200 PUFFS)8.5GM 10/02/2021 Active Mounjaro 2.5 MG/0.5ML 2.5 mg Subcutaneous once a week for 30 days 08/13/2023 Active Vitamin D3 125 MCG (5000 UT) as directed Orally 06/17/2022 Active ROSUVASTATIN CALCIUM 20 MG TAKE 1 TABLET BY MOUTH EVERY DAY ROSUVASTATIN CALCIUM 20 MG *Reorder from [employer] for eRx and Interaction Alerts* 05/09/2021 Active Losartan Potassium 100 MG TAKE 1 TABLET BY MOUTH EVERY DAY for 90 Active Probiotic - as directed Orally Active FERROUS SULFATE 325MG EC TABS RED TAKE 1 TABLET BY MOUTH DAILY FERROUS SULFATE 325MG EC TABS RED *Reorder from [employer] for eRx and Interaction Alerts* 08/17/2021 Active Metoprolol Succinate 100 MG 1.5 capsules Orally Once a day Active PREGABALIN 150MG CAPSULES TAKE 1 CAPSULE BY MOUTH THREE TIMES DAILY PREGABALIN 150MG CAPSULES *Reorder from [employer] for eRx and Interaction Alerts* 10/15/2021 Not-Taking Mounjaro 5 MG/0.5ML as directed Subcutaneous once per week for 30 days 10/06/2023 Active Vitamin C 500 MG as directed Orally Active Dexcom G7 Sensor - DIRECTED FOR CONT GLUCOSE MONITORING for 180 days 05/05/2023 Not-Taking Nitroglycerin 0.4 MG as directed Sublingual Up to 3x's a day as needed Active Morphine Sulfate ER 60 MG 1 capsule Orally Once a day Not-Taking Cephalexin 500 MG 1 tab by mouth once daily for 90 days Active Ozempic (2 MG/DOSE) 8 MG/3ML as directed Subcutaneous Not-Taking BD Pen Needle Short U/F 31G X 8 MM as directed for 100 days Active Tamsulosin HCl 0.4 MG TAKE 1 CAPSULE BY MOUTH EVERY DAY IN THE EVENING Orally Once a day for 90 days Active SOCIAL HISTORY Tobacco Use: Social History [...] > 10 years Section Notes: Lives in [place], [place] with w hunter. [place] with [place] hunter. [place] with [place]. [place]. [place]. [place]. PROBLEMS Problem Type ICD Code Onset Dates Problem Status W/U Status Risk SNOMED Code Notes Problem Type 2 diabetes mellitus with diabetic chronic kidney disease (E11.22) Active confirmed Diabetic renal disease (977333611) Problem Hyperlipidemia, unspecified (E78.5) Active confirmed Hyperlipidemia (06187824) Problem Essential (primary) hypertension (I10) Active confirmed Essential hypertension (19096045) Problem Non-ST elevation (NSTEMI) myocardial infarction (I21.4) Active confirmed Acute non-ST se gment elevation myocardial infarction (294150451) Problem Spondylolisthes is, lumbosacral region (M43.17) Active confirmed Acquired spondylolisthesis (054773018) Problem Erectile dysfunction due to diseases classified elsewhere (N52.1) Active confirmed Problem Abnormal findings on diagnostic imaging of other specified body structures (R93.89) Active confirmed Imaging result abnormal (508702969) Problem Sciatica of right side (M54.31) Active confirmed Sciatica (98221670) Problem Diabetic angiopathy (E11.51) Active confirmed Type 2 diabetes mellitus with peripheral angiopathy (259464235) VITAL SIGNS Heart Rate 64 /min 10/06/2023 Oximetry 97 % 10/06/2023 Blood pressure diastolic 82 mm Hg 10/06/2023 Height-cm 177.80 cm 10/06/2023 Weight-kg 105.69 kg 10/06/2023 Height 70 in 10/06/2023 Blood pressure systolic 138 mm Hg 10/06/2023 Weight 233.0 lbs 10/06/2023 BMI 33.43 kg/m2 10/06/2023 Encounters Encounter Location Date Provider Diagnosis [address] [place] [id number] [facility] [address] [place] [id number] [facility] [address] [place] [id number] 09/16/2023 [facility] [address], [place] [id number] 10/01/[address] [id number] 11/06/[address] [id number] 06/05/2023 CHRISTIANO RIZO Essential (primary) hypertension I10 and Type 2 diabetes mellitus with diabetic chronic kidney disease E11.[address] [id number] 06/17/2023 CHRISTIANO RIZO Type 2 diabetes mellitus with diabetic chronic kidney disease E11.22 ; Hyperlipidemia, unspecified E78.5 ; Non-ST elevation (NSTEMI) myocardial infarction I21.4 and Hip pain, left M25.[address] [id number] 07/16/2023 CHRISTIANO RIZO Essential (primary) hypertension I10 ; Type 2 diabetes mellitus with diabetic chronic kidney disease E11.22 ; Hip pain, left M25.552 and Pain of right hip M25.[address] [id number] 07/31/2023 REFUGIO LEARY Diabetic angiopathy E11.51 ; Abnormal findings on diagnostic imaging of other specified body structures R93.89 and Fatigue, unspecified type R53.[address] [id number] 08/13/2023 CHRISTIANO RIZO Type 2 diabetes mellitus with diabetic chronic kidney disease E11.22 ; Essential (primary) hypertension I10 ; Hyperlipidemia, unspecified E78.5 and Diabetic angiopathy E11.[address] [id number] 10/06/2023 CHRISTIANO RIZO Essential (primary) hypertension I10 ; Type 2 diabetes mellitus with diabetic chronic kidney disease E11.22 ; Erectile dysfunction due to diseases classified elsewhere N52.1 ; Non-ST elevation (NSTEMI) myocardial infarction I21.4 and Spondylolisthesis, lumbosacral region M43.[address] [id number] 06/18/[address] [id number] 06/24/2023 CHRISTIANO RIZO [address] [id number] 06/24/2023 CHRISTIANO RIZO Pain of right hip M25.[address] [id number] 07/07/2023 CHRISTIANO RIZO [address] [id number] 07/11/2023 CHRISTIANO RIZO [address] [id number] 08/04/2023 CHRISTIANO RIZO ASSESSMENTS Encounter Date Diagnosis Assessment Notes Treatment Notes Treatment Clinical Notes Section Notes 06/05/2023 Type 2 diabetes mellitus with diabetic chronic kidney disease (ICD-10 - E11.22) 06/05/2023 Essential (primary) hypertension (ICD-10 - I10) 06/17/2023 Type 2 diabetes mellitus with diabetic chronic kidney disease (ICD-10 - E11.22) 06/17/2023 Hyperlipidemia, unspecified (ICD-10 - E78.5) 06/24/2023 Pain of right hip (ICD-10 - M25.551) 07/16/2023 Type 2 diabetes mellitus with diabetic chronic kidney disease (ICD-10 - E11.22) It has been challenging finding the medication regimen that patient tolerates, we will continue to monitor for SE and response to treatment 07/16/2023 Essential (primary) hypertension (ICD-10 - I10) Condition is stable and well controlled on current treatment. 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 Uncontrolled diabetes at this time Pt stopped his mounjaro due to GI side effects and concern of chronic pancreatitis on the CT scan Discussed doubling his home dose of jardiance and continuing his prescribed dose of insulin to follow up with his PCP next week to review dosing/plan of care He has also made major lifestyle change He is following up with vascular today to further address the [place] [facility] [place] HPI for additional information 08/13/2023 Type 2 diabetes mellitus with diabetic chronic kidney disease (ICD-10 - E11.22) 10/06/2023 Type 2 diabetes mellitus with diabetic chronic kidney disease (ICD-10 - E11.22) Condition is stable and well controlled on current treatment. No changes made, medication(s) refilled as indicated Having trouble finding luke, we will send to [facility] in [place] A1C down to 6.9, and average BS are 159 according to his CGM 10/06/2023 Essential (primary) hypertension (ICD-10 - I10) Condition is stable and well controlled on current treatment. No changes made, medication(s) refilled as indicated 08/13/2023 Essential (primary) hypertension (ICD-10 - I10) mildly elevated today, we will avoid med changes 10/06/2023 Erectile dysfunction due to diseases classified elsewhere (ICD-10 - N52.1) Condition is stable and well controlled on current treatment. 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 He was worried he had a DVT. This was negative and they sent him home noting that it was likely MSK/sciatica. No x-rays were obtained. We will order x-ray today. Prednisone and cyclobenzaprine were sent and pt to f/u in office in 2 weeks or sooner if need be 07/16/2023 Pain of right hip (ICD-10 - M25.551) 08/13/2023 Diabetic angiopathy (ICD-10 - E11.51) 10/06/2023 Non-ST elevation (NSTEMI) myocardial infarction (ICD-10 - I21.4) Condition is stable and well controlled on current treatment. No changes made, medication(s) refilled as indicated 10/06/2023 Spondylolisthesi s, lumbosacral region (ICD-10 - M43.17) 06/17/2023 Other Total time spen t with patient 32 minutes which includes face to face visit, education and coordination of care. 07/16/2023 Other Arthritis, also called osteoarthritis, is a breakdown of the cartilage that cushions your joints. When the cartilage wears down, your bones rub against each other. This causes pain and stiffness. Many people have some arthritis as they age. Arthritis most often affects the joints of the spine, hands, hips, knees, or feet. Arthritis never goes away completely. But medicine and home treatment can help reduce pain and help you stay active. Follow-up care is a garrison part of your treatment and safety. Be sure to make and go to all appointments, and call your doctor if you are having problems. It's also a good idea to know your test results and keep a list of the medicines you take. Stay at a healthy weight. Being overweight puts extra strain on your joints. Stretch. You may enjoy gentle forms of yoga to help keep your joints and muscles flexible. Walk instead of jog. Other types of exercise that are less stressful on the joints include riding a bike, swimming, sharon chi, or water exercise. Lift weights. Strong muscles help reduce stress on your joints. Stronger thigh muscles, for example, take some of the stress off of the knees and hips. Learn the right way to lift weights so you don't make joint pain worse. Take your medicines exactly as prescribed. Call your doctor if you think you are having a problem with your medicine. Take pain medicines exactly as directed. If the doctor gave you a prescription medicine for pain, take it as prescribed. If you are not taking a prescription pain medicine, ask your doctor if you can take an [id number]-gdy-[id number] medicine. Use a cane, crutch, walker, or another device if you need help to get around. These can help rest your joints. You also can use other things to make life easier, such as a higher toilet seat and padded handles on kitchen utensils. Do not sit in low chairs. They can make it hard to get up. Put heat or cold on your sore joints as needed. Use whichever helps you most. You can also switch between hot and cold packs. Apply heat 2 or 3 times a day for 20 to 30 minutesusing a heating pad, hot shower, or hot packto relieve pain and stiffness. But don't use heat on a swollen joint. Put ice or a cold pack on your sore joint for 10 to 20 minutes at a time. Put a thin cloth between the ice and your skin. Total time spent with patient 39 minutes which includes face to face visit, education and coordination of care. 07/31/2023 Other Total time spen t with patient 32 minutes which includes face to face visit, education and coordination of care. Closer to 50 minutes spent with pt 08/13/2023 Other Currently receiving PT for sciatica of left, demonstrated some stretching techniques while in office today, also recommended he consider being more consistant with celebrex as this will help with the inflammation. Total time spent with patient 31 minutes which includes face to face visit, education and coordination of care. 10/06/2023 Other Total time spen t with patient 32 minutes which includes face to face visit, education and coordination of care. PLAN OF TREATMENT Pending Test Test Name Order Date MRI : Lumbosacral Spines 10/06/2023 X ray : Hip, right 06/24/2023 X ray : Hip and thigh, left 06/17/2023 CARDIO IQ(R) LIPID PANEL (67954) 024 ALBUMIN, RANDOM URINE W/CREATININE (6517 ) 07/16/2023 COMPREHENSIVE METABOLIC PANEL (23908) CBC (H/H, RBC, INDICES, WBC, PLT) (1759) 07/16/2023 C-REACTIVE PROTEIN (4420) 07/16/2023 CARDIO IQ(R) HEMOGLOBIN A1c (42693) 07/03 CULTURE, BLOOD NO.2 (16393) 07/16/2023 APOLIPOPROTEIN B 11/01/2022 CBC (COMPLETE BLOOD COUNT) WITH DIFF 06/ 07/2022 COMPREHENSIVE METABOLIC PANEL 11/01/2022 HEMOGLOBIN A1C 11/01/2022 LIPID PANEL, REFLEX TO DIRECT LDL 2022 MICROALBUMIN, URINE 11/01/2022 Insurance Providers Payer Name Payer Address Payer Phone Subscriber Number Group Number Insured Name Patient Relationship to Insured Coverage Start Date Coverage End Date [facility] [address] [place] [phone] [id number] JORGE SULLIVAN Self - patient is the insured MEDICAL (GENERAL) HISTORY Medical History History ICD Code Repair graft Artobiefemoral Bypass Arthroscopy Knee Surgical History Surgery Date(Month/Year) Artobifemoral Bypass Repair Graft Arthroscopy knee
--- OUTSIDE RECORDS SUMMARY | 2024-05-31 11:08 | XMS_ITS | Data Portability ---
Author Organization [place] - [facility], [employer] Address [address] [place] [address] Assessment Encounter Date Assessment Date Assessment LastModified by Organization Details LastModified Time 11/20/2023 11/20/2023 30 minutes spent on date of service on chart review, direct time spent with patient, and documentation of clinical encounter. Not available 11/21/2023 11:40:33 Plan of Treatment Reminders Order Date Submit Date Provider Last Modified By Organization Details Last Modified Time Details Appointments FOLLOW UP 2024 02:00P Kelli Reid, DNP Not available Not available Not available Lab PSA, serum or plasma 2023 024 PARKER [facility], [address] [place], [address], 01/14/2024 16:06:42 HbA1c (hemogl obin A1c), blood 2023 024 PARKER [facility], [address] [place], [address], 01/14/2024 16:06:43 CMP, serum or plasma 2023 024 PARKER [facility], [address] [place], [address], 01/14/2024 16:06:41 lipid panel, serum 2023 024 PARKER [facility], [address] [place], [address], 01/14/2024 16:06:42 lipid panel, serum [facility]23 [facility]24 [facility] [address], [place], [address], 11/21/2023 11:46:08 CBC w/ auto diff 2023 024 PARKER [facility], [address] [place] [address], [address], 01/14/2024 16:06:40 lyme disease Ab, serum 2023 024 ATHENAFAX [facility], [address] [place] [address], [address], 12/25/2023 16:15:54 Referral None recorde d. Procedures None recorde d. Surgeries None recorde d. Imaging None recorde d. Medication Orders tramado l 50 mg tablet 2023 024 CORINTH [id number], [address], [place], [id number], 11/21/2023 11:44:38 Patient TargetsNo targets recorded. Patient InstructionsNo instructions recorded. Reason for Referral None Reported. Results Created Date Observation Date Name Description Value Unit Range Abnormal Flag Note LastModifiedBy Organization Detail LastModifiedTime 01/13/2001/14/2024 HEMOG LOBIN A1C hemoglobin A1C 7.7 % 4.8-5. 6 above high normal Predi abete s: 5.7 - 6.4 Diabe abner: >6.4 Glyce yvette contr ol for adult s with diabe abner: <7.0 Not Available [facility] ([facility]) [address], [place], [address], 01/14/2024 16:06:43 11/13/19 24 05/19/2023 US, doppl er echoc ardio gram No observ ation record ed. cris Not Available 10/31 14:44:48 11/13/19 24 07/30/2023 US, carot id arter y No observ ation record ed. cris Not Available 10/31 14:45:30 11/20/19 24 10/21/2023 imagi ng inter preta tion No observ ation record ed. [email or web address] [facility] [address] [address], [place], [address], 11/25/2023 10:31:41 11/20/19 24 10/21/2023 MRI, cervi daria spine , w/o contr ast No observ ation record ed. [facility] [place] [address], [address], 11/22/2023 15:35:13 11/20/19 24 10/21/2023 MRI, cervi daria spine , w/o contr ast No observ ation record ed. [facility] [place] [address], [address], 11/22/2023 15:35:02 11/20/19 24 03/16/2019 MRI, sandor teodoro, w/o contr ast No observ ation record ed. [facility] [place] [address], [address], 11/22/2023 15:34:48 11/20/19 24 03/16/2019 MRI, sandor valerio, w/o contr ast No observ ation record ed. [facility] [place] [address], [address], 11/21/2023 17:22:38 11/20/19 24 10/21/2023 MRI, sacru m + coccy x, w/o contr ast No observ ation record ed. [facility] [place] [address], [address], 11/22/2023 15:34:30 11/20/19 24 10/21/2023 MRI, sacru m + coccy x, w/o contr ast No observ ation record ed. [facility] [place] [address], [address], 11/22/2023 15:34:16 11/20/19 24 10/21/2023 MRI, sacru m + coccy x, w/o contr ast No observ ation record ed. [email or web address] [place] [address] [address], [place], [address], 11/22/2023 15:34:02 Result Notes None recorded. Problems Name Problem SNOMED Code Status Onset Date Resolution Date Notes Provider Name and Address Organization Details Recorded Time Benign prostatic hyperplasia 112098944 Active 2023 Lashanda sr null, [place] - [facility] 4 14:46:30 Impacted cerumen 96387226 Active 2023 Lashanda sr null, [place] - [facility] 4 14:46:41 Chronic cough 22012568 Active 2023 Lashanda sr null, [place] [facility] 4 14:46:51 Type 2 diabetes mellitus 88124795 Active 2023 Lashanda sr null, [place] - [facility] 4 14:46:57 Erectile dysfunction 674096998 Active 2023 Lashanda sr null, [place] - [facility] 4 14:47:07 History of non-ST segment elevation myocardial infarction 347664480 Active 2023 Lashanda sr null, [place] - [facility] 4 14:47:48 Acute non-ST segment elevation myocardial infarction 574440316 Active 2023 Lashanda sr null, [place] - [facility] 4 14:54:26 Hyperlipide tracie 66336027 Active 2023 Lashanda sr null, [place] [facility] 4 14:54:33 Hypertensiv e disorder 69506138 Active 2023 Lashanda sr null, [place] - [facility] 4 14:54:39 Hypogonadis m 75489999 Active 2023 Lashanda sr null, [place] [facility] 4 14:54:46 Lesion of external ear 553144282 Active 2023 Lashandamahesh sr null, [place] - [facility] 4 14:55:01 Obese class I 4887005022391 07 Active 2023 Lashanda sr null, [place] - [facility] 4 14:55:08 Pain of right shoulder region Active 2023 Lashanda sr null, [place] - [facility] 4 14:55:21 Peripheral nerve disease 118280323 Active 2023 Lashanda sr null, [place] - [facility] 4 14:55:49 Posterior rhinorrhea 85116533 Active 2023 Lashanda sr null, [place] - [facility] 4 14:56:02 Peripheral vascular disease 451744141 Active 2023 Lashanda sr null, [place] - [facility] 4 14:56:12 Pain of right lower leg 3142346064792 08 Active 2023 Connie Reid, DEDRICK [address], [place], [address], [place] - [facility] 4 11:36:39 Coronary arterioscle rosis 06269803 Active 2023 Connie Reid NP [address], [place], [address], [place] - [facility] 4 11:42:28 Spinal stenosis of lumbar region 06568172 Active 2023 Connie Reid NP [address], [place], [address], [place] - [facility] 4 17:23:25 Problem Notes None recorded. Procedures Surgical History Date Name Laterality Status Provider Name and Address Organization Details Recorded Time Knee arthroscopy/surge ry completed Lashanda Burger [place] - [facility] 11/13/2023 14:56:52 cataract surgery completed Lashanda Burger [place] - [facility] 11/13/2023 14:57:04 aortofemoral to popliteal vascular [facility] 11/13/2023 14:57:25 Imaging Results Imaging Date Name Status LastModified by Organization Details LastModified Time 05/19/2023 US, doppler echocardiogram completed formerly [facility], [facility] Information not available 11/13/2023 14:44:48 07/30/2023 US, carotid artery completed [facility], [facility] Infor mation not available 11/13/2023 14:45:30 10/21/2023 imaging interpretation completed [facility] [place] [address], [address], 11/25/2023 10:31:41 10/21/2023 MRI, cervical spine, w/o contrast completed [place] [address], [address], 11/22/2023 15:35:13 10/21/2023 MRI, cervical spine, w/o contrast completed [place] [address], [address], 11/22/2023 15:35:02 03/16/2019 MRI, shoulder, w/o contrast completed [place] [address], [address], 11/22/2023 15:34:48 03/16/2019 MRI, shoulder, w[facility], [address], 11/21/2023 17:22:38 10/21/2023 MRI, sacrum + coccyx, w/o contrast completed [place] [address], [address], 11/22/2023 15:34:30 10/21/2023 MRI, sacrum + coccyx, w/o contrast completed [place] [address], [address], 11/22/2023 15:34:16 10/21/2023 MRI, sacrum + coccyx, w/o contrast completed [place] [address], [address], 11/22/2023 15:34:02 Procedure Notes None recorded. Medical Equipment None Reported. Allergies No known drug allergies Medications Name Sig Start Date Stop Date Status Note LastModified by Organization Details LastModified Time losartan 50 mg tablet TAKE 1 TABLET BY MOUTH DAILY 11/19 completed Not Available Not Available Not Available celecoxib 200 mg capsule TAKE 1 CAPSULE BY MOUTH DAILY WITH FOOD active Not Available Not Available No t Available cyclobenzap rine 10 mg tablet TAKE 1 TABLET BY MOUTH EVERY 8 HOURS AT BEDTIME FOR 21 DAYS NEEDED 11/19 completed Not Available Not Available Not Available sildenafil 50 mg tablet TAKE 1 TABLET BY MOUTH ONCE DAILY NEEDED active Not Available Not Available No t Available prednisone 20 mg tablet TAKE 2 TABLETS BY MOUTH EVERY DAY FOR 7 DAYS 11/19 completed Not Available Not Available Not Available metoprolol succinate ER 100 mg tablet,exte nded release 24 hr TAKE 1 TABLET BY MOUTH DAILY active Not Available Not Available No t Available clopidogrel 75 mg tablet TAKE 1 TABLET BY MOUTH DAILY active Not Available Not Available No t Available omeprazole 40 mg capsule,del ayed release TAKE 1 CAPSULE BY MOUTH TWICE DAILY active Not Available Not Available No t Available tramadol 50 mg tablet TAKE 1 TABLET BY MOUTH THREE TIMES DAILY NEEDED active Not Available Not Available No t Available triamcinolo ne acetonide 0.1 % topical cream APPLY TWICE DAILY TO ITCHY AREA OF RIGHT LOWER ABDOMEN FOR UP TO 2 WEEKS ON 1 WEEK OFF MAY REPEAT NOT FOR FACE/GROI N/BODY FOLDS active Not Available Not Available No t Available ciclopirox 8 % topical solution 11/19 completed Not Available Not Available Not Available tamsulosin 0.4 mg capsule TAKE 1 CAPSULE BY MOUTH EVERY DAY IN THE EVENING active Not Available Not Available No t Available cephalexin 500 mg capsule TAKE 2 CAPSULES BY MOUTH EVERY 12 HOURS FOR 4 WEEKS active Not Available Not Available No t Available nitroglycer in 0.4 mg sublingual tablet DISSOLVE ONE TABLET UNDER TONGUE NEEDED FOR CHEST PAIN EVERY 5 MINUTES MAX OF 3 TIMES 2023 active Not Available Not Available Not Avai lable aspirin 81 mg chewable tablet CHEW AND SWALLOW ONE TABLET EVERY DAY 11/19 completed Not Available Not Available Not Available morphine 15 mg immediate release tablet TAKE 1 TABLET BY MOUTH EVERY 6 HOURS NEEDED FOR PAIN 11/19 completed Not Available Not Available Not Available losartan 100 mg tablet TAKE 1 TABLET BY MOUTH EVERY DAY active Not Available Not Available No t Available Novolog FlexPen U-100 Insulin aspart 100 unit/mL (3 mL) subcutaneou s INJECT 24 UNITS SUBCUTANE OUS THREE TIMES DAILY active Not Available Not Available No t Available rosuvastati n 40 mg tablet TAKE 1 TABLET BY MOUTH DAILY active Not Available Not Available No t Available BD Ultra-Fine Short Pen Needle 31 gauge x 5/16 USE TO INJECT INSULIN FIVE TIMES DAILY active Not Available Not Available No t Available FreeStyle Lite Meter kit USE DIRECTED TO TEST BLOOD GLUCOSE 3 TO 4 TIMES DAILY active Not Available Not Available No t Available FreeStyle Lite Strips USE DIRECTED TO TEST BLOOD GLUCOSE 3 TO 4 TIMES DAILY active Not Available Not Available No t Available Lantus Solostar U-100 Insulin 100 unit/mL (3 mL) subcutaneou s pen INJECT 50 UNITS UNDER THE SKIN AT BEDTIME active Not Available Not Available No t Available Jardiance 10 mg tablet TAKE 1 TABLET BY MOUTH EVERY DAY active Not Available Not Available No t Available Dexcom G6 Transmitter device USE DIRECTED 11/19 completed Not Available Not Available Not Available Mounjaro 7.5 mg/0.5 mL subcutaneou s pen injector ADMINISTE R 7.5 MG UNDER THE SKIN EVERY WEEK active Not Available Not Available No t Available Mounjaro 5 mg/0.5 mL subcutaneou s pen injector ADMINISTE R 5 MG UNDER THE SKIN EVERY WEEK active Not Available Not Available No t Available Mounjaro 2.5 mg/0.5 mL subcutaneou s pen injector ADMINISTE R 2.5 MG UNDER THE SKIN EVERY WEEK FOR 4 WEEKS 11/19 completed Not Available Not Available Not Available FreeStyle Tomer 3 Sensor device USE DIRECTED 14 DAYS active Not Available Not Available No t Available Vitals Date Recorded Body weight Body mass index (BMI) Body height Heart rate Oxygen saturation Oxygen saturation in Arterial blood by Pulse oximetry Systolic blood pressure Diastolic blood pressure Provider Name and Address Organization Details Last Updated DateTime 4 617788. 95 g 34.9 kg/m2 177.8 cm 56 /min 96 % 96 % 140 mm[Hg] 82 mm[Hg] Damari Hernadez [facility] 4 11:16:34 Social History Question Answer Notes LastModified by Organizat ion Details LastModified Time Tobacco Smoking Status Former Smoker Lashanda Burger null, [place] - [facility] 11/13/2023 14:57:51 When Did You Quit Smoking? 16+yearssinc elastcigaret te cris Information not available 11/13/2023 Sex: Unknown Functional Status None recorded. Mental Status None recorded. Family History Relationship Description Onset Age of this Age Resolved Age Notes LastModified by Organization Details LastModified Time Mother Dementia formerly [facility], [facility]1983 Not availa ble 11/13/2023 14:58:06 Mother Leukemia [facility], 1928[facility]1983 Not availa ble 11/13/2023 14:58:22 Father Diabetes mellitus formerly [facility], [facility]1983 Not available 10/31 14:58:13 Medical History No medical history recorded. Immunizations Vaccine Type Date Status Note Provider Nam e and Address Organization Details Recorded Time Influenza, high-dose, quadrivalent, PF 1 completed Connie Reid, REGIONAL SAFETY MANAGER [address], , [facility] 11/20/2023 11:40:34 Influenza, high-dose, quadrivalent, PF 2 completed Connie Reid, REGIONAL SAFETY MANAGER [address], , [facility] 11/20/2023 11:40:34 COVID-19, mRNA, LNP-S, PF, 30 mcg/0.3 mL dose 1 completed Connie Reid, REGIONAL SAFETY MANAGER [address], , [facility] 11/20/2023 11:40:34 COVID-19, mRNA, LNP-S, PF, 30 mcg/0.3 mL dose 1 completed Connie Reid, REGIONAL SAFETY MANAGER [address], , [facility] 11/20/2023 11:40:34 COVID-19, mRNA, LNP-S, PF, 30 mcg/0.3 mL dose 1 completed Connie Reid, REGIONAL SAFETY MANAGER [address], , [place] [facility] 11/20/2023 11:40:34 Tdap 7 completed Connie Reid, REGIONAL SAFETY MANAGER [address] [facility], [place], [place], , [place] [facility] 11/20/2023 11:40:34 Influenza, high-dose, trivalent, PF 9 completed Connie Reid, REGIONAL SAFETY MANAGER [address] [facility],[address] [address], [place], [place], , [place] [facility] 11/20/2023 11:40:34 Td (adult), 5 Lf tetanus toxoid, preservative free, adsorbed 3 completed Connie Reid, REGIONAL SAFETY MANAGER [address] [facility],[address] [address], [place], [place], , [place] [facility] 11/20/2023 11:40:34 Hep B, adult 9 completed Connie Reid, REGIONAL SAFETY MANAGER [address] [address], [place], , [place] [facility] 11/20/2023 11:40:34 Hep B, adult 0 completed Connie Reid, REGIONAL SAFETY MANAGER [address] [facility],[address] [address], [place], , [place] [facility] 11/20/2023 11:40:34 Hep B, adult 9 completed Connie Reid, REGIONAL SAFETY MANAGER [address] [facility],[address] [address], [place], , [place] [facility] 11/20/2023 11:40:34 Past Encounters Encounter ID Performer Location Encounter Start Date Encounter Closed Date Diagnosis/Indication Diagnosis SNOMED-CT Code Diagnosis ICD10 Code [id number] Connie Reid NP Main Office [address] [facility],[address] [place] 11/20/2023 10:49:55 11/20/2023 12:05:31 Patient new to provider [id number] 92009 Z76.89 Pain of ri ght lower leg 3480110753 22411 M79.661 Type 2 rafaela betes mellitus 43116000 Z79.4 Screening for malignant neoplasm of prostate 673204058 Z12.5 Coronary arteriosclerosis 23076594 I25.10 Health Concerns Section Related Observation LastModified by Organization Detai ls LastModified Time None Recorded Concern Status LastModified by Organization Details LastModified Time None Recorded Advance Directives Directive None Recorded Payers Encounter Date Sequence Insurance Name Policy Number Policy Phipps Covered Member ID Phipps Member ID Guarantor Name 11/20/2023 1 [place] (MEDICARE REPLACEMENT PPO) [id number] Caesar Flower [id number] Caesar Flower Notes Date Note Type Note Provider Name and Address Organization Details Recorded Time 11/20/2023 text/html He is here as a new patient. Last PCP: Imani Mchugh re: right leg pain, MRI done of lower back and pelvis he has not received results yet, 10/21/23. Started when he was working on his deck about 3 months ago. Was ultimately treated with celebrex and ultram, celebrex has not been helpful, ultram has been helpful. His last PCP wondered if it was sciatica.Follows with specialists: Dr. Rubio @ [facility] for DM2, cardiology, cardiac surgeons, Dr. Horne vascular surgery. Connie Reid NP [address] [facility],[address], [place], [address], [place] - [facility] 11/21/2023 11:44:33
--- OUTSIDE RECORDS SUMMARY | 2024-05-31 11:08 | XMS_ITS ---
Author Organization [facility], [facility] Address [address] [place] [id number] Care Team Providers Care Security Sales Manager Name Role Phone CHRISTIANO ALANIS Primary Care Provider [phone] ALLERGIES No Known Allergies REASON FOR VISIT F/U MEDS SOCIAL HISTORY Tobacco Use: Social History Observation Description Date Details (start date - stop date) Former Smoker NA - 06/02/1992 Sex Assigned At : Social History Observation Description Sex Assigned At Male Tobacco Use/Smoking Question Answer Notes Tobacco use: former smoker When did you stop smoking? 06/02/1992 How long has it been since you last smoked? > 10 years Section Notes: Lives in [place], [place] with w hunter. Encounters Encounter Location Date Provider Diagnosis [address] [id number] 10/01/2023 CHRISTIANO ALANIS PLAN OF TREATMENT No Information Progress Notes * JORGE FLOWER SrDOB:09/1950 (73 yo M)Acc No.[id number]:10/01/2023 Progress Notes Patient:??JORGE FLOWER Sr Provider:??Christiano Alanis DNP :1950?Age:73 Y?Sex:Jeff sin Date:10/01/2023 Phone: Address:[address] [place] [address] Subjective: * Chief Complaints: * ?1. F/U MEDS. * HPI: ?Patient Care Team:?Treasury Director:??Dr. Quezada @ [facility] ?Dr. Gould - Cardiac Surgeon.?Data Reduction Technician:??Dr. Torres @ [facility].?Surgeon:??Dr. Mercedes @ [facility].? Providers/Specialists: Infectious Disease - Dr. Latham @ [facility]. * Medical History:??Repair gra ft, Artobiefemoral Bypass, Arthroscopy Knee. * Surgical History:??Artobifem oral Bypass , Repair Graft , Arthroscopy knee . * Family History:??Father: dec eased, Diabetes, Blood disorder (rare).??Mother: , Leukemia.??Paternal Grandmother: , Diabetes.??Brother: alive, Unknown health history.??Sister: alive, No known health concerns.?? * Social History:?Tobacco Use:?Tobacco Use/Smoking?Tobacco use:??former smoker ?When did you stop smoking???06/02/1992 ?How long has it been since you last smoked???> 10 years ?Migrated Social History:?Migrated Social History: Smoking Status:Former smoker, [SNOMED-CT:0881465], for 30yrs. ?Drugs/Alcohol:?Do you drink alcohol?: No. ?Lives in [place], [place] with . * Allergies:??N.K.D.A. Objective: Assessment: Plan: * Treatment: * Preventive Medicine:?Last CPE: 01/31/2022 @ [facility] DEXA: Yes, in past Colonoscopy: 3 months ago, Dr Torres @ [facility] Endoscopy: 2021 w/Dr Torres Covid Vac: Yes Flu Vac: Yes PV: Yes Shingles Vac: Yes. * Billing Information: * Visit Code:?? * Procedure Codes:?? * Sign off status: Pending * Provider:??Christiano Alanis DNP Date:??0 10/01/2023 History and Physical Notes * HPI (History of Present Illness) Category Sub-Category Detail Notes Category Not es Patient Care Team Treasury Director: Dr. Quezada @ [facility] Dr. Gould - Cardiac Surgeon Providers/Specialist s: Infectious Disease - Dr. Latham @ [facility] Surgeon: Dr. Mercedes @ [facility] Data Reduction Technician: Dr. Torres @ [facility]
--- OUTSIDE RECORDS SUMMARY | 2024-05-31 11:08 | XMS_ITS ---
Author Organization [facility] Address [address] [place] [address] Care Team Providers Care Operations Business Partner Name Role Phone Jeanette Patten.Connie Raymond Primary Care Provider Lauren Torres Jr, Yaya Andersen REASON FOR VISIT refill omeprazole MEDICATIONS Medication SIG (Take, Route, Fr equency, Duration) Notes Start Date End Date Status Omeprazole 40 MG TAKE 1 CAPSULE BY MO UTH TWICE DAILY for 30 days Active Encounters Encounter Location Date Provider Diagnosis [facility] [address] [place] [address] [place] [phone] 03/19/2024 Yaya Torres Jr PLAN OF TREATMENT Medication Medication Name Sig Start Date Stop Date Notes Omeprazole 40 MG TAKE 1 CAPSULE BY MO UTH TWICE DAILY for 30 days Next Appt Details Provider Name:Yaya noble Jr, 01/05/2025 11:10:00 AM, [address] [place] [address], [address], [place], [phone],
--- OUTSIDE RECORDS SUMMARY | 2024-05-31 11:08 | XMS_ITS | Patient Health Record ---
Author Organization [facility] Address [address] [place] [id number] Care Team Providers Care Talent Acquisition Sourcer Name Role Phone Connie Reid N.P. Primary Care Provider Yaya Cintron Jr Unavailable [phone] ALLERGIES No Known Allergies REASON FOR REFERRAL No Information MEDICATIONS Medication SIG (Take, Route, Frequency, Duration) Notes Start Date End Date Status Omeprazole 40 MG TAKE 1 CAPSULE BY [facility] TWICE DAILY for 30 days Active Probiotic - as directed Orally Active Mounjaro 2.5 MG/0.5ML as directed Subcutaneous Active Cephalexin 500 MG 1 capsule Orally Fou r times a day for 5 day(s) Active NovoLOG 100 UNIT/ML as directed Injection Active Losartan Potassium 50 MG 1 tablet Orally Once a day for 30 day(s) Active Lantus 100 UNIT/ML as directed Subcutaneous Active Ipratropium [place] 0.03 % USE 2 SPRAYS IN EACH NOSTRIL 2 TO 3 TIMES DAILY Diagnosis Unavailable Nasal for 84 Active Furosemide 40 MG 1 tablet Orally Once a day for 30 day(s) Active Ferrous Sulfate 325 (65 Fe) MG 1 tablet Orally Once a day for 30 day(s) Active Pregabalin ER 165 MG 1 tablet after the evening meal Orally Once a day Active Clopidogrel Bisulfate 75 MG 1 tablet Orally Once a day for 30 day(s) Active Tamsulosin HCl 0.4 MG 1 capsule Orally O nce a day for 30 day(s) Active IMMUNIZATIONS Vaccine Route Administration Date Status Comme nts Influenza Unknown 04/17/2021 Administered Influenza Unknown 04/22/2022 Refused Influenza Unknown 01/05/2024 Refused SOCIAL HISTORY Tobacco Use: Social History Observation Description Date Details (start date - stop date) Never Smoker NA - NA Sex Assigned At : Social History Observation Description Sex Assigned At Unknown Tobacco Use/Smoking Question Answer Notes Patient is a nonsmoker Alcohol Screen Question Answer Notes Did you have a drink containing alcohol in the p ast year? No Points 0 Interpretation Negative PROBLEMS Problem Type ICD Code Onset Dates Problem Status W/U Status Risk SNOMED Code Notes Problem Upper GI bleeding (K92.2) Active confirmed 85260801 Problem Colon cancer screening (Z12.11) Active confirmed 407033637 Problem Gastroesophageal reflux disease without esophagitis (K21.9) Active confirmed 590619389 Problem Polyp of colon, unspecified part of colon, unspecified type (K63.5) Active confirmed 77192744 VITAL SIGNS Temperature 97.5 degrees Fahrenheit 01/05/2024 Blood pressure diastolic 00 mm Hg 01/05/2024 Height 70 in 01/05/2024 Blood pressure systolic 000 mm Hg 01/05/2024 Weight 246 lb 4 oz lbs 01/05/2024 BMI 35.33 kg/m2 01/05/2024 Encounters Encounter Location Date Provider Diagnosis [facility] [address] [place] [phone] 01/05/2024 Yaya Torres Jr Gastroesophageal reflux disease without esophagitis K21.9 and Colon cancer screening Z12.11 [facility] [address] [place] [phone] 09/01/2023 Yaya Torres Jr [facility] [address] [place] [phone] 03/19/2024 Yaya Torres Jr ASSESSMENTS Encounter Date Diagnosis Assessment Notes Treatment Notes Treatment Clinical Notes 01/05/2024 Colon cancer screening (ICD-10 - Z12.11) 01/05/2024 Gastroesophageal reflux disease without esophagitis (ICD-10 - K21.9) Gastroesophageal reflux disease material was printed PLAN OF TREATMENT Next Appt Details Provider Name:Yaya noble Jr, 01/05/2025 11:10:00 AM, [address], [address] [facility], [place], [address], Insurance Providers Payer Name Payer Address Payer Phone Subscriber Number Group Number Insured Name Patient Relationship to Insured Coverage Start Date Coverage End Date [facility] [address] [place] [address] [phone] [id number] JORGE SANCHEZ Self - patient is the insured MEDICAL (GENERAL) HISTORY Medical History History ICD Code Diabetes mellitus Coronary artery disease with history of DC and ischemic cardiomyopathy Hypertension Peripheral vascular disease Hyperlipidemia Enlarged prostate Upper GI bleed 08/21 EGD with cauterizati on of bleeding AVM Colonoscopy 12/21, 6 mm tubul ar adenoma, five-year followup optional based on age Surgical History Surgery Date(Month/Year) Aortobifemoral bypass 2020 Cardiac stent placement 2022 Hospitalization History Reason Date(Month/Year) gi bleed 2021
--- OUTSIDE RECORDS SUMMARY | 2024-05-31 11:08 | XMS_ITS ---
Author Organization [facility] Address [address] [place] [phone] Care Team Providers Care Public Area Supervisor Name Role Phone Connie Reid N.P. Primary Care Provider Monaa Yaya Craig Jr ALLERGIES No Known Allergies REASON FOR VISIT Patient presents today for acid reflux MEDICATIONS Medication SIG (Take, Route, Frequency, Duration) Notes Start Date End Date Status Cephalexin 500 MG 1 capsule Orally Fou r times a day for 5 day(s) Active Losartan Potassium 50 MG 1 tablet Orally Once a day for 30 day(s) Active Omeprazole 40 MG 1 capsule Orally Twi ce a day for 30 days 09/24/2021 Active Pregabalin ER 165 MG 1 tablet after the evening meal Orally Once a day Active Furosemide 40 MG 1 tablet Orally Once a day for 30 day(s) Active Ferrous Sulfate 325 (65 Fe) MG 1 tablet Orally Once a day for 30 day(s) Active Clopidogrel Bisulfate 75 MG 1 tablet Orally Once a day for 30 day(s) Active Tamsulosin HCl 0.4 MG 1 capsule Orally O nce a day for 30 day(s) Active Probiotic - as directed Orally Active Mounjaro 2.5 MG/0.5ML as directed Subcutaneous Active NovoLOG 100 UNIT/ML as directed Injection Active Lantus 100 UNIT/ML as directed Subcutaneous Active Ipratropium [place] 0.03 % USE 2 SPRAYS IN EACH NOSTRIL 2 TO 3 TIMES DAILY Diagnosis Unavailable Nasal for 84 Active IMMUNIZATIONS Vaccine Route Administration Date Status Comme nts Influenza Unknown 01/05/2024 Refused SOCIAL HISTORY Tobacco [...] ast year? No Points 0 Interpretation Negative VITAL SIGNS BMI 35.33 kg/m2 01/05/2024 Blood pressure systolic 000 mm Hg 01/05/20 24 Blood pressure diastolic 00 mm Hg 024 Height 70 in 01/05/2024 Temperature 97.5 degrees Fahrenheit 01/05/20 24 Weight 246 lb 4 oz lbs 01/05/2024 Encounters Encounter Location Date Provider Diagnosis [facility] [address] [place] [address] 01/05/2024 Yaya Torres Jr Gastroesophageal reflux disease without esophagitis K21.9 and Colon cancer screening Z12.11 ASSESSMENTS Encounter Date Diagnosis Assessment Notes Treatment Notes Treatment Clinical Notes 01/05/2024 Gastroesophageal reflux disease without esophagitis (ICD-10 - K21.9) Gastroesophageal reflux disease material was printed 01/05/2024 Colon cancer screening (ICD-10 - Z12.11) PLAN OF TREATMENT Treatment Notes Assessment Notes Gastroesophageal reflux dise ase without esophagitis Gastroesophageal reflux disease material was printed Next Appt Details Follow Up: 1 Year, Reason: Provider Name:Yaya noble Jr, 01/05/2025 11:10:00 AM, [address], [address], [place], [address],
[2024-05-31 11:17] LABS: Glucose, Whole Blood 270 mg/dL (60-115)
== END 2024-05-31 11:39 | disposition home or self-care (01) ==
PROVIDERS: PCP Registered Nurse; Visit Provider Physician Assistant
DX: E11.65 Type 2 diabetes mellitus with hyperglycemia (principal); Z79.4 Long term (current) use of insulin; E78.5 Hyperlipidemia, unspecified; I10 Essential (primary) hypertension

== ENCOUNTER → 2024-05-31 11:02 | Outpatient (BNVA) | payer MEDICARE, SELFPAY | PROVIDERS: PCP Registered Nurse; Visit Provider Physician Assistant | DX: E11.65 Type 2 diabetes mellitus with hyperglycemia (principal); Z79.4 Long term (current) use of insulin; E78.5 Hyperlipidemia, unspecified; I10 Essential (primary) hypertension | CPT/HCPCS: 82947; 83036; 99212 ==

== ENCOUNTER 2024-07-02 13:53 | Outpatient (AMB) | payer MEDICARE, SELFPAY ==
--- OUTSIDE RECORDS SUMMARY | 2024-07-02 13:55 | XMS_ITS | Clinical Summary ---
Author Organization [facility] Address [address] [address] Care Team Providers Care Automotive Drivability Technician Name Role Phone Imani Alanis DNP Primary Care Provider Allergies No known active allergies Medications Zoster Vac Recomb Adjuvanted (Shingrix) 50 MCG/0.5ML reconstituted suspension Inject 0.5 mL into the shoulder, thigh, or buttocks 9 Active tamsulosin (FLOMAX) 0.4 MG 24 hr capsule Take 0.4 mg by mouth every night 3 Active sildenafil (VIAGRA) 50 MG tablet Take 50 mg by mouth 1 (one) time each day if needed 3 Active rosuvastatin (CRESTOR) 20 MG tablet Take 20 mg by mouth in the morning. 2 Active omeprazole (PriLOSEC) [address] capsule Take 40 mg by mouth 1 (one) time each day 3 Active metoprolol succinate XL (Toprol XL) 100 MG 24 hr tablet Take 100 mg by mouth 2 Active losartan (COZAAR) 50 MG tablet Take 50 mg by mouth 1 (one) time each day 3 Active B-D ULTRAFINE III SHORT PEN 31G X 8 MM misc USE 1 NEEDLE FIVE TIMES DAILY FOR INSULIN INJECTIONS 3 Active NovoLOG FLEXPEN 100 UNIT/ML injection 10 mL 3 Active Continuous Blood Gluc Transmit (Dexcom G6 Transmitter) misc USE DIRECTED 3 Active ferrous sulfate 325 (65 Fe) MG EC tablet Take 1 tablet by mouth in the morning. 2 Active clopidogrel (PLAVIX) 75 MG tablet Take 75 mg by mouth 1 (one) time each day 3 Active cephalexin (KEFLEX) 500 MG capsule Take 500 mg by mouth in the morning and 500 mg in the evening. 3 Active albuterol HFA (ProAir HFA) 108 (90 Base) MCG/ACT inhaler Inhale 2 Active Semaglutide (OZEMPIC, 2 MG/DOSE, SC) Inject under the skin Active Active Problems Problem Noted Date Diagnosed Date Anemia due to blood loss 01/02/2023 023 Benign neoplasm of colon 01/02/2023 023 Benign prostatic hyperplasia 01/02/202307/2022 Cardiomyopathy 01/02/2023 01/02/2023 Chronic back pain 01/02/2023 01/02/2023 Chronic cough 01/02/2023 01/02/2023 Coronary arteriosclerosis 01/02/20232022 Duodenitis 01/02/2023 01/02/2023 Essential hypertension 01/02/2023 Gastro-esophageal reflux disease without esophag itis 01/02/2023 01/02/2023 Hepatitis C antibody detected 01/02/2023 History of non-ST segment elevation myocardial i nfarction 01/02/2023 01/02/2023 Impotence of organic origin 01/02/2023 0807/2022 Impacted cerumen 01/02/2023 01/02/2023 Hyperlipidemia 01/02/2023 01/02/2023 Lesion of external ear 01/02/2023 Male hypogonadism 01/02/2023 01/02/2023 Upper gastrointestinal bleeding 01/02/2023 Uncontrolled type 2 diabetes mellitus 01/02/2023 Overview (03/02/2024): Replacing diagnoses that were inactivated after the 03/02/24 Regulatory Import Shoulder pain 01/02/2023 01/02/2023 Screening for malignant neoplasm of colon 202201/02/2023 Posterior rhinorrhea 01/02/2023 01/02/2023 Peripheral neuropathy 01/02/2023 01/02/2023 Patient encounter status 01/02/2023 023 Obesity 01/02/2023 01/02/2023 Vascular graft infection 02/12/2022 023 Overview (01/02/2023): Last Assessment & Plan: He looks well and is tolerating cephalexin, although has been taking it once or twice a day. Given the extent and source of his prior infection with in situ graft I advised to continue cephalexin. He knows to monitor for signs or symptoms of recurring infection. Intermittent claudication of bilateral lower limbs co-occurrent and due to atherosclerosis 01/18/2022 01/02/2023 Peripheral vascular disease 01/18/2022 080 07/2022 Immunizations Name Administration Dates Next Due Hepatitis B 11/20/2009,12/07/2008,11/09/2008 Influenza, Unspecified 04/17/2021,05/22/2019 Pfizer SARS-COV-2 09/08/2020,08/10/2020 Pneumococcal Conjugate 13-Valent 06/24/2017 Pneumococcal Polysaccharide 12/28/2014 Td, Unspecified 04/06/2013 Tdap 06/09/2018,05/29/2007 Zoster 08/11/2013 Family History Relation Status Comments Father Mother Social History Tobacco Use Types Packs/Day Years Used Date Smoking Tobacco: Never Smokeless Tobacco: Never Tobacco Cessation:Counseling Given: Not Answered Sex and Gender Information Value Date Recorded Sex Assigned at Not on file Legal Sex Male 2:16 PM EST Gender Identity Not on file Sexual Orientation Not on file Last Filed Vital Signs Vital Sign Reading Time Taken Comments Blood Pressure 144/65 01/02/2023 3:45 PM EDT Pulse 68 01/02/2023 3:45 PM EDT Temperature - - Respiratory Rate - - Oxygen Saturation 98% 01/02/2023 3:45 PM EDT Inhaled Oxygen Concentration - - Weight 108 kg (237 lb) 01/02/2023 3:45 PM EDT Height - - Body Mass Index - - Plan of Treatment Health Maintenance Due Date Last Done Comments Colorectal Cancer Screening: Annual FOBT 1997 Colorectal Cancer Screening: Sigmoidoscopy 1997 Diabetes: Hemoglobin A1C 06/10/2022 Diabetes: Ophthalmology Exam 06/10/202205/2013, 03/10/2012, 01/30/2011, Additional history exists Diabetes: Pedal Pulse Checked 06/10/2022 Diabetes: Sensory Foot Exam 06/10/2022 Diabetes: Visual Foot Exam 06/10/2022 Influenza Vaccine (#1) 2024 04/17/2021, 2018 Colorectal Cancer Screening: Colonoscopy 12/26/2031 12/25/2021 Hepatitis B Vaccine Aged Out 11/20/2009, 12/07/2008, 11/09/2008 No longer eligible based on patient's age to complete this topic Pneumococcal Vaccine: 65+ Years Completed 06/24/2017, 12/28/2014 Insurance [facility] Care Teams Automotive Drivability Technician Relationship Specialty Start Date End Date Imani Alanis DNP [address] [place] [address], [address] PCP - General Nurse Practitioner 06/05/22
--- OUTSIDE RECORDS SUMMARY | 2024-07-02 13:55 | XMS_ITS | Continuity of Care Document ---
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 Primary Care Physician [phone] Encounter [facility] Date(s): 05/24/24 - 06/23/24 [facility] Infectious Disease [address] [place] [id number] Encounter Type: Triage Allergies, Adverse Reactions, Alerts Substance Criticality Severity Reaction Reaction Severity Status Bee Stings Rash Active Immunizations Given and Recorded Vaccine Date Status Refusal Reason SARS-CoV-2 (COVID-19) mRNA BNT-162b2 vac 09/08/20 Recorded SARS-CoV-2 (COVID-19) mRNA BNT-162b2 vac 08/10/20 Recorded influenza virus vaccine, inactivated 05/22/19 Daniel rded Adacel (Tdap) (oldterm) 06/09/18 Given pneumococcal 13-valent vaccine 06/24/17 Given pneumococcal 23-valent vaccine 12/28/14 Given Zoster Vaccine Live 1 08/11/13 Recorded tetanus-diphtheria toxoids (Td) 04/06/13 Recorded hepatitis B adult vaccine 11/20/09 Recorded hepatitis B adult vaccine 12/07/08 Recorded hepatitis B adult vaccine 11/09/08 Recorded tetanus/diphtheria/pertussis, acel(Tdap) 05/29/07 Recorded 1Result Comment: [12/28/2014] done at [facility] Medications amLODIPine 5 mg oral tablet 5 mg, 1, tablet, By Mouth, Daily, # 90 tablet, Refills 2, Tot. Refills 2, Maintenance, 05/31/24 1:00:00 PM EST, Route to Pharmacy Electronically, [facility] #[id number], Partial fill upon patient request if the prescription is for a schedule II opioid drug., 177, cm, 04/28/24 8:23:00 EST, Height, 116.2, kg, 04/28/24 8:23:00 EST, Dry Weight Start Date: 05/31/24 Status: Ordered Quantity: 90.0 Unit: tablet Repeat number: 3 aspirin 81 mg oral tablet, chewable 81 mg, By Mouth, Daily, # 90 tablet, Refills 4, Tot. Refills 4, Maintenance, 04/28/24 11:08:00 AM EST, Route to Pharmacy Electronically, [facility] #[id number], Partial fill upon patient requestif the prescription is for a schedule II opioid drug., 177, cm, 04/28/24 8:23:00 EST, Height, 116.2, kg, 04/28/24 8:23:00 EST, Dry Weight Start Date: 04/28/24 Stop Date: 04/27/29 Status: Ordered Quantity: 90.0 Unit: tablet Repeat number: 5 cephalexin monohydrate 500 mg oral capsule 2 capsule = 1,000 mg, By Mouth, Every 12 hours, for 4 week(s), # 112 capsule, 3 Refills, Acute 09/10/24 4:31:00 PM EDT, 05/21/24 4:31:00 PM EST, Capsule, [facility] #[id number], Partial fill uponpatient request if the prescription is for a schedule II opioid drug., 177, cm, 04/28/24 8:23:00 EST, Height, 116.2, kg, 04/28/24 8:23:00 EST, Dry Weight Start Date: 05/21/24 Stop Date: 09/10/24 Status: Ordered Quantity: 112.0 Unit: capsule Repeat number: 4 clopidogrel 75 mg oral tablet 1, tablet, By Mouth, Daily, # 90 tablet, Refills 2, Tot. Refills 2, Maintenance, 05/31/24 12:59:00 PM EST, Route to Pharmacy Electronically, [facility] #[id number], 177, cm, 04/28/24 8:23:00 EST, Height, 116.2, kg, 04/28/24 8:23:00 EST, Dry Weight Start Date: 05/31/24 Status: Ordered Quantity: 90.0 Unit: tablet Repeat number: 3 D3 1000 intl units (25 mcg) oral tablet 1 tablet = 25 mcg, By Mouth, Daily, 0 Refills, Maintenance, 03/21/23 3:08:00 PM EDT, Partial fill upon patient request if the prescription is for a schedule II opioid drug. Start Date: 03/21/23 Status: Ordered Repeat number: 1 EpiPen 2-Humberto 0.3 mg injectable kit = 0.3 mg, Intramuscular, Once, # 2 each, 1 Refills, Soft Stop, 12/28/14 10:08:05 AM EDT, [facility]/pharmacy #[id number] Start Date: 12/28/14 Status: Ordered Quantity: 2.0 Unit: each Repeat number: 2 ferrous sulfate 325 mg oral enteric coated tablet 325 mg, 1, tablet, By Mouth, Daily, # 90 tablet, Refills 0, Tot. Refills 0, Maintenance, 08/17/21 2:28:00 PM EDT, Route to Pharmacy Electronically, [facility] #[id number], Partial fill upon patient request if the prescription is for a schedule II opioid drug., 178, cm, 08/17/21 13:53:00 EDT, Height, 89.5, kg, 02/07/21 21:42:00 EDT, Dry Weight Start Date: 08/17/21 Status: Ordered Quantity: 90.0 Unit: tablet Repeat number: 1 Indication: Iron deficiency anemia secondary to blood loss (chronic) Flomax 0.4 mg oral capsule 0.4 mg, 1, capsule, By Mouth, Daily, # 90 capsule, Refills 0, Tot. Refills 0, Maintenance, 08/10/21 12:46:00 PM EST, Route to Pharmacy Electronically, [facility] #[id number], Partial fill upon patient request if the prescription is for a schedule II opioid drug., 178, cm, 08/07/21 11:16:00 EST, Height, 89.5, kg, 02/07/21 21:42:00 EDT, Dry Weight Start Date: 08/10/21 Status: Ordered Quantity: 90.0 Unit: capsule Repeat number: 1 Indication: Benign prostatic hyperplasia with lower urinary tract symptoms furosemide 40 mg oral tablet 40 mg, 1, tablet, By Mouth, Daily, # 30 tablet, Refills 5, Tot. Refills 5, Maintenance, 04/28/24 12:18:00 PM EST, Route to Pharmacy Electronically, [facility] #[id number], Partial fill upon patient request if the prescription is for a schedule II opioid drug., 177, cm, 04/28/24 8:23:00 EST, Height, 116.2, kg, 04/28/24 8:23:00 EST, Dry Weight Start Date: 04/28/24 Status: Ordered Quantity: 30.0 Unit: tablet Repeat number: 6 Humalog Kwik Pen 100 units/mL subcutaneous injection See Instructions, Administer SQ three times a day. Sliding Scale instructions: 150 - 199 3 units 200 - 249 5 units 250 - 299 7 units 300 - 349 9 units 350 - 399 11 units, # 10 mL, 0 Refills, Maintenance, 02/16/21 11:25:00 AM EDT, Solution, [facility], Partial fill upon patient request if the prescription is for a schedule II opioid drug., 178, cm, 02/16/21 8:17:00 EDT, Height, 89.5, kg, 02/07/21 21:42:00 EDT, Dry Weight Start Date: 02/16/21 Status: Ordered Quantity: 10.0 Unit: mL Repeat number: 1 Jardiance 25 mg oral tablet 1 tablet = 25 mg, By Mouth, Daily in AM, # 30 tablet, 0 Refills, Maintenance, 02/26/23 1:47:00 PM EDT, Tablet, Partial fill upon patient request if the prescription is for a schedule II opioid drug. Start Date: 02/26/23 Status: Ordered Quantity: 30.0 Unit: tablet Repeat number: 1 Lantus Solostar Pen 100 units/mL subcutaneous solution = 30 units, Subcutaneous Injection, Daily at bedtime, # 10 mL, 0 Refills, Maintenance, 02/16/21 11:20:00 AM EDT, Solution, [facility], Partial fill upon patient request if the prescription is for a schedule II opioid drug., 178, cm, 02/16/21 8:17:00 EDT, Height, 89.5, kg, 02/07/21 21:42:00 EDT, Dry Weight Start Date: 02/16/21 Stop Date: 03/18/21 Status: Ordered Quantity: 10.0 Unit: mL Repeat number: 1 losartan 50 mg oral tablet 1 tablet, By Mouth, Daily, # 90 tablet, 0 Refills, [facility] #[id number], 178, cm, 09/25/21 14:35:00 EDT, Height, 89.5, kg, 02/07/21 21:42:00 EDT, Dry Weight Start Date: 09/25/21 Status: Ordered Quantity: 90.0 Unit: tablet Repeat number: 1 magnesium gluconate 250 mg oral tablet 1 tablet = 250 mg, By Mouth, Daily, # 30 tablet, 0 Refills, Maintenance, 03/21/23 3:08:00 PM EDT, Tablet, Partial fill upon patient request if the prescription is for a schedule II opioid drug. Start Date: 03/21/23 Status: Ordered Quantity: 30.0 Unit: tablet Repeat number: 1 Metoprolol Succinate ER 100 mg oral tablet, extended release 1 tablet, By Mouth, Daily, # 90 tablet, 3 Refills, Maintenance, 09/19/23 8:01:00 AM EDT, [facility] #[id number], 178, cm, 07/31/23 15:03:00 EST, Height, 103.1, kg, 02/01/23 18:36:00 EDT, Dry Weight Start Date: 09/19/23 Status: Ordered Quantity: 90.0 Unit: tablet Repeat number: 1 Mounjaro 5 mg/0.5 mL subcutaneous solution 0 Refills, Maintenance, 02/10/24 9:21:00 AM EDT, Partial fill upon patient request if the prescription is for a schedule II opioid drug. Start Date: 02/10/24 Status: Ordered Repeat number: 1 nitroglycerin 0.4 mg sublingual tablet 1 tablet = 0.4 mg, Sublingual, Every 5 minutes, PRN as needed for chest pain, not to exceed 3 doses/15 min--if pain persists, seek medical attention, # 25 tablet, 0 Refills, Maintenance, 02/06/23 1:42:00 PM EDT, Tablet, [facility] #[id number], Partial fill upon patient request if the prescription is for a schedule II opioid drug., 178, cm, 02/06/23 3:33:00 EDT, Height, 103.1, kg, 02/01/23 18:36:00 EDT, Dry Weight Start Date: 02/06/23 Status: Ordered Quantity: 25.0 Unit: tablet Repeat number: 1 NovoLOG FlexPen 100 units/mL injectable solution Subcutaneous Infusion, 3 times a day before meals, 0 Refills, Maintenance, 01/22/23 2:08:00 PM EDT, Partial fill upon patient request if the prescription is for a schedule II opioid drug. Start Date: 01/22/23 Status: Ordered Repeat number: 1 Omeprazole By Mouth, Daily, 0 Refills, Maintenance, 02/07/21 10:30:00 PM EDT, Partial fill upon patient request if the prescription is for a schedule II opioid drug. Start Date: 02/07/21 Status: Ordered Repeat number: 1 One Touch Delica Lancets See Instructions, # 1 kit, Maintenance, Check POCs three times a day and at bedtime, 02/16/21 11:52:00 AM EDT, Supply, 178, cm, 02/16/21 8:17:00 EDT, Height, 89.5, kg, 02/07/21 21:42:00 EDT, Dry Weight Start Date: 02/16/21 Status: Ordered Quantity: 1.0 Unit: kit Repeat number: 1 OneTouch Verio Glucose Meter See Instructions, # 1 kit, Maintenance, Check POCs three times a day and at bedtime, 02/16/21 11:53:00 AM EDT, Supply, 178, cm, 02/16/21 8:17:00 EDT, Height, 89.5, kg, 02/07/21 21:42:00 EDT, Dry Weight Start Date: 02/16/21 Status: Ordered Quantity: 1.0 Unit: kit Repeat number: 1 OneTouch Verio Test Strips See Instructions, # 1 kit, Maintenance, Check POCs three times a day and at bedtime, 02/16/21 11:52:00 AM EDT, Supply, 178, cm, 02/16/21 8:17:00 EDT, Height, 89.5, kg, 02/07/21 21:42:00 EDT, Dry Weight Start Date: 02/16/21 Status: Ordered Quantity: 1.0 Unit: kit Repeat number: 1 Pen Secretary, 31 G x 8 mm BD Ultra Fine III See Instructions, # 1 kit, Refills 0, Tot. Refills 0, Maintenance, Check POCs three times a day andat bedtime, 02/16/21 11:29:00 AM EDT, Supply, 178, cm, 02/16/21 8:17:00 EDT, Height, 89.5, kg, 02/07/21 21:42:00 EDT, Dry Weight Start Date: 02/16/21 Stop Date: 03/18/21 Status: Ordered Quantity: 1.0 Unit: kit Repeat number: 1 ProAir HFA 90 mcg/inh inhalation aerosol with adapter 2, puffs, Inhalation, Every 6 hours, PRN, # 8.5 Gm, Refills 3, Tot. Refills 3, Maintenance, :30:00 PM EDT, Aerosol, Route to Pharmacy Electronically, [id number], [facility] #[id number], 178, cm, 08/17/21 13:53:00 EDT, Height, 89.5, kg, 02/07/21 21:42:00 EDT, Dry Weight Start Date: 08/17/21 Status: Ordered Quantity: 8.5 Unit: g Repeat number: 4 Indication: Cough, unspecified Probiotic Formula (Bacillus Coagulans) oral capsule 1 capsule, By Mouth, Daily, # 30 capsule, 0 Refills, Maintenance, 02/07/21 10:31:00 PM EDT, Capsule, Partial fill upon patient request if the prescription is for a schedule II opioid drug. Start Date: 02/07/21 Status: Ordered Quantity: 30.0 Unit: capsule Repeat number: 1 rosuvastatin 40 mg oral capsule 1 capsule = 40 mg, By Mouth, Daily, # 90 capsule, 3 Refills, Maintenance, 03/18/24 3:31:00 PM EDT, Capsule, [facility] #[id number], Partial fill upon patient request if the prescription is for aschedule II opioid drug., 178, cm, 03/18/24 15:14:00 EDT, Height, 103.1, kg, 02/01/23 18:36:00 EDT,Dry Weight Start Date: 03/18/24 Status: Ordered Quantity: 90.0 Unit: capsule Repeat number: 4 Shingrix intramuscular injection 0.5 mL, Intramuscular, Once, repeat dose in 2 to 6 months, # 0.5 mL, 1 Refills, Soft Stop, 06/09/18 3:11:49 PM EST Start Date: 06/09/18 Status: Ordered Quantity: 0.5 Unit: mL Repeat number: 2 Tramadol By Mouth, 0 Refills, Maintenance, 02/10/24 9:19:00 AM EDT, Partial fill upon patient request if the prescription is for a schedule II opioid drug. Start Date: 02/10/24 Status: Ordered Repeat number: 1 Problem List Condition Confirmation Course Effective Dates Status H ealth Status Informant Anemia due to GI blood loss Confirmed Active Benign prostatic hyperplasia (BPH) with post-void dribbling Confirmed Active Cardiomyopathy Confirmed Active Carotid atherosclerosis Confirmed Active Chronic back pain Confirmed Active Chronic cough Confirmed Active CAD (coronary artery disease) Confirmed Active DVT (deep venous thrombosis) Confirmed Active Duodenitis Confirmed Active Hypertension 401.9 Confirmed Active Hepatitis C reactive Confirmed Active History of non-ST elevation myocardial infarction (NSTEMI) Confirmed Active Hyperlipidemia 272.4 Confirmed Active Cerumen impaction Confirmed Active Erectile dysfunction Confirmed Active Atherosclerosis of [place] arteries of extremities with intermittent claudication, bilateral legs Confirmed Active Lesion of right external ear Confirmed Active Hypogonadism male Confirmed Active NSTEMI (non-ST elevated myocardial infarction) Confirmed Active Obesity 278.00 Confirmed Active Encounter to establish care Confirmed Active Peripheral neuropathy Confirmed Active PVD (peripheral vascular disease) with claudication Confirmed Active PND (post-nasal drip) Confirmed Active Severe obesity (BMI 35.0-39.9) with comorbidity Confirmed Active Pain in right shoulder Confirmed Active DM Type II Uncontrolled 250.02 Confirmed Active Social History Social History Type Response Tobacco Other: quit 30 yeras ago. Sex Sex Representation Male (finding) Note * Adrienne Puckett MD: SIGN Adrienne Puckett MD: SIGN, MODIFY Adrienne Puckett MD: MODIFY, SIGN, VERIFY Event Display: Cardiac Rehab Note Authored Date: [id number] Patient: CAESAR VANEGAS Age: 73 years Sex: Male : 1950 Associated Diagnoses: None Author: Keron Smith Initial Assessment Diagnosis: S/P CLIFTON x2/RCA EF: 40-45% Date of Event: 04/28/24 HPI: Pt is a 73 YO Male with CP on exertion. Pt had a positive ETT and was admitted for an electiveLHC with CLIFTON/LAD. Residual D1-70%, OM1 70%, OM2. Pt's EF was 40-45%. Other Medical Conditions/Comorbidities/Surgeries: NSTEMI, CLIFTON/LCX, OM1, NIDDM, Neuropathy, PAD, FEMPOP Bypass, HTN, CHOL, GIB Cardiac Risk Factors: HTN, CHOL, Obesity, NIDDM Consumer Experience Consultant: Damien PCP: Jeanette Patrick Rec Complete: yes Med Compliant: yes Beta Mookie: yes Allergies: NKA Sternal Click: NA Incisions C/D/I: NA Pain: 0/10 Fall in Past 6 Months? no Physical Limitations: BL LE Neuropathy Cardiac Rhythm: NSR Lung Sounds: CTA Edema : none Diabetes: yes Type:II Insulin: yes FBS: 150-200's Risk Stratification: Moderate Non-Adherence Score: 4 Advanced Directive: yes DNR: no MOLST: no In CIS: yes Adv Dir Form Given: no Other/Notes: _ Plan: 1. Pt will attend our monitored exercise program 2 x week for 12 sessions. Pt will begin exercisingat 2.1 mets and increase as tolerated. 2. Pt is a Diabetic, FBS are elevated recently in the 150-200's. He has a CGS. We will check his sugars on his CGS pre and post exercise for the first six sessions, then reevaluate. 3. Pt will meet with our RD for heart healthy diet and DM education. His initial diet score is a 4. 4. He will attend our risk factor education lectures. Initial Exercise Prescription: Frequency: 2 Intensity (Initial MET Level/RPE): 2/3 Types of Exercise: Treadmill, Nustep, UBE Time of Exercise: 30 Resistance Training: no Progression: 40% Increase from 3rd session MET level 2.8 We look forward to working with Caesar. Please contact us at [phone] if you have any questions or concerns. Thank you Time spent with patient: 92 Report sent to all consultants: Damien BABIN, Tasha Patten. Report sent to all consultants: Jeanette TSE, Connie. * Adrienne Puckett MD: PERFORM Event Display: Cardiac Rehab Note Authored Date: I have reviewed the patient's history, physical exam, and medications and agree with the treatment plan and exercise prescription as outlined in cardiac rehabilitation staff members note. Patient Care team information Care Team Personnel Name: Henri Castellanos MD Position: [facility] Renal MD Member Role: Lifetime Consulting Physician Address: [address] [place] [address] [address] [facility] [place] [address]- [place] Tele[employer]: Name: Daiana Sanford RN Position: [facility] RN Member Role: Primary Care Nurse Name: Moon Roth RN Position: [facility] RN Member Role: Primary Care Nurse Name: Connie Reid NP Position: [facility] Physician [facility] Medicine Member Role: PCP Address: [address] [place] [id number]- Telecom: Name: Lavern Woody RN Position: [facility] RN Member Role: Primary Care Nurse Name: Luiz Long RN Position: [facility] SN RN Member Role: Primary Care Nurse Name: Concepcion Zepeda RN Position: [facility] RN Member Role: Primary Care Nurse Name: Kathi Cameron RN Position: [facility] RN Member Role: Primary Care Nurse Name: Greer Khan RN Position: [facility] RN Member Role: Primary Care Nurse Name: Janis Winslow RN Position: [facility] RN Member Role: Primary Care Nurse Name: Uri French RN Position: [facility] RN Member Role: Primary Care Nurse Name: Trixie Johnson RN Position: [facility] RN Member Role: Primary Care Nurse Care Team Related Persons Name: GUILHERME JULISSA Insurance Providers Guarantor name: [facility] Plan Information #: 1 Payer: NA Member Number: NA Policy Number: NA Group Number: NA
--- OUTSIDE RECORDS SUMMARY | 2024-07-02 13:55 | XMS_ITS | Data Portability ---
Author Organization [place] - [facility], [employer] Address [address] [place] [address] Assessment Encounter Date Assessment Date Assessment LastModified [...] plasma 2023 024 [facility], [address] [place], [address], 01/14/2024 16:06:42 HbA1c (hemogl obin A1c), blood 2023 024 [facility], [address] [place], [address], 01/14/2024 16:06:43 CMP, serum or plasma 2023 024 [facility]ER [facility], [address] [place], [address], 01/14/2024 16:06:41 lipid panel, serum 2023 024 [facility], [address] [place], [address], 01/14/2024 16:06:42 lipid [facility], [facility] [address], [place], [address], 11/21/2023 11:46:08 CBC w/ auto diff 2023 024 [facility]ER [facility], [address] [place] [address], [address], 01/14/2024 16:06:40 lyme disease Ab, serum 2023 024 [facility], [address] [place] [address], [address], 12/25/2023 16:15:54 Referral None recorde d. Procedures None recorde d. Surgeries None recorde d. Imaging None recorde d. Medication Orders tramado l 50 mg tablet 2023 024 [id number], [address], [place], [phone], 11/21/2023 11:44:38 Patient TargetsNo targets recorded. Patient [...] with diabe abner: <7.0 Not Available [facility] ([facility]) [address], [place], [address], 01/14/2024 16:06:43 11/13/19 24 05/19/2023 US, doppl er echoc ardio gram No observ ation record ed. cris Not Available 10/31 14:44:48 11/13/19 24 07/30/2023 US, carot id arter y No observ ation record ed. cris Not Available 10/31 14:45:30 11/20/19 24 10/21/2023 imagi ng inter preta tion No observ ation record ed. [facility] [address] [address], [place], [address], 11/25/2023 10:31:41 11/20/19 24 10/21/2023 MRI, cervi daria spine , w/o contr ast No observ ation record ed. [facility] [place] [address], [address], 11/22/2023 15:35:13 11/20/19 24 10/21/2023 MRI, cervi daria spine , w/o contr ast No observ ation record ed. [facility] [place] [address], [address], 11/22/2023 15:35:02 11/20/19 24 03/16/2019 MRI, sandor teodoro, w/o contr ast No observ ation record ed. [facility] [place] [address], [address], 11/22/2023 15:34:48 11/20/19 24 03/16/2019 MRI, sandor valerio, w/o contr ast No observ ation record ed. [facility] [address], [address], 11/21/2023 17:22:38 11/20/19 24 10/21/2023 MRI, sacru m + coccy x, w/o contr ast No observ ation record ed. [facility] [place] [address], [address], 11/22/2023 15:34:30 11/20/19 24 10/21/2023 MRI, sacru m + coccy x, w/o contr ast No observ ation record ed. [facility] [place] [address], [address], 11/22/2023 15:34:16 11/20/19 24 10/21/2023 MRI, sacru m + coccy x, w/o contr ast No observ ation record ed. [facility] [address] [address], [place], [address], 11/22/2023 15:34:02 Result Notes None recorded. Problems Name Problem SNOMED Code Status Onset Date Resolution Date Notes Provider Name and Address Organization Details Recorded Time Benign prostatic hyperplasia 029946477 Active 2023 Lashanda sr null, [place] - [facility] 4 14:46:30 Impacted cerumen 59623883 Active 2023 Lashanda sr null, [place] [facility] 4 14:46:41 Chronic cough 79801394 Active 2023 Lashanda sr null, [place] [facility] 4 14:46:51 Type 2 diabetes mellitus 78409478 Active 2023 Lashanda sr null, [place] [facility] 4 14:46:57 Erectile dysfunction 909951288 Active 2023 Lashanda sr null, [place] [facility] 4 14:47:07 History of non-ST segment elevation myocardial infarction 251423894 Active 2023 Lashanda sr null, [place] [facility] 4 14:47:48 Acute non-ST segment elevation myocardial infarction 676730551 Active 2023 Lashanda sr null, [place] [facility] 4 14:54:26 Hyperlipide tracie 51961348 Active 2023 Lashanda sr null, [place] [facility] 4 14:54:33 Hypertensiv e disorder 31910819 Active 2023 Lashanda sr null, [place] [facility] 4 14:54:39 Hypogonadis m 72168559 Active 2023 Lashanda sr null, [place] [facility] 4 14:54:46 Lesion of external ear 487979351 Active 2023 Lashandamahesh sr null, [place] [facility] 4 14:55:01 Obese class I 0957265303152 07 Active 2023 Lashanda sr null, [place] [facility] 4 14:55:08 Pain of right shoulder region Active 2023 Lashanda sr null, [place] [facility] 4 14:55:21 Peripheral nerve disease 600931257 Active 2023 Lashanda sr null, [place] [facility] 4 14:55:49 Posterior rhinorrhea 45283772 Active 2023 Lashanda sr null, [place] [facility] 4 14:56:02 Peripheral vascular disease 896160232 Active 2023 Lashanda sr null, [place] [facility] 4 14:56:12 Pain of right lower leg 0294149161151 08 Active 2023 Connie Reid, DEDR[address], [place], [address], [place] - [facility] 4 11:36:39 Coronary arterioscle rosis 82039445 Active 2023 Connie Reid NP [address], [place], [address], [place] [facility] 4 11:42:28 Spinal stenosis of lumbar region 52169333 Active 2023 Connie Reid NP [address], [place], [address], [place] - [facility] 4 17:23:25 Problem Notes None recorded. Procedures Surgical History Date Name Laterality Status Provider Name and Address Organization Details Recorded Time Knee arthroscopy/surge ry completed Lashanda Burger [place] - [facility] 11/13/2023 14:56:52 cataract surgery completed Lashanda Burger [place] - [facility] 11/13/2023 14:57:04 aortofemoral to popliteal vascular bypass [facility] 11/13/2023 14:57:25 Imaging Results Imaging Date Name Status LastModified by Organization Details LastModified Time 05/19/2023 US, doppler echocardiogram completed [facility] / Information not available 11/13/2023 14:44:48 07/30/2023 US, carotid artery completed [facility] / Infor mation not available 11/13/2023 14:45:30 10/21/2023 imaging interpretation completed [facility] [address], [address], 11/25/2023 10:31:41 10/21/2023 MRI, cervical spine, w/o contrast completed [place] [address], [address], 11/22/2023 15:35:13 10/21/2023 MRI, cervical spine, w/o contrast completed [place] [address], [address], 11/22/2023 15:35:02 03/16/2019 MRI, shoulder, w/o contrast completed [place] [address], [address], 11/22/2023 15:34:48 03/16/2019 [facility], [facility], [facility] [address], [address], 11/21/2023 17:22:38 10/21/2023 MRI, sacrum + coccyx, w/o contrast completed [place] [address], [address], 11/22/2023 15:34:30 10/21/2023 MRI, sacrum + coccyx, w/o contrast completed [place] [address], [address], 11/22/2023 15:34:16 10/21/2023 MRI, sacrum + coccyx, w/o contrast completed [place] [address], [address], 11/22/2023 15:34:02 Procedure Notes None recorded. Medical [...] Address Organization Details Last Updated DateTime 4 909137. 95 g 34.9 kg/m2 177.8 cm 56 /min 96 % 96 % 140 mm[Hg] 82 mm[Hg] Damari Hernadez [facility] 4 11:16:34 Social History Question Answer Notes LastModified by Organizat ion Details LastModified Time Tobacco Smoking Status Former Smoker Lashanda Burger null, [place] - [facility] 11/13/2023 14:57:51 When Did You Quit Smoking? 16+yearssinc elastcigaret te cris Information not available 11/13/2023 Sex: Unknown Functional Status None recorded. Mental Status None recorded. Family History Relationship Description Onset Age of this Age Resolved Age Notes LastModified by Organization Details LastModified Time Mother Dementia [facility] Not availa ble 11/13/2023 14:58:06 Mother Leukemia [facility] Not availa ble 11/13/2023 14:58:22 Father Diabetes mellitus [facility] Not available 10/31 14:58:13 Medical History No medical history recorded. Immunizations Vaccine Type Date Status Note Provider Nam e and Address Organization Details Recorded Time Influenza, high-dose, quadrivalent, PF 1 completed Connie Reid, OUT PATIENT THERAPIST [address], , [facility] 11/20/2023 11:40:34 Influenza, high-dose, quadrivalent, PF 2 completed Connie Reid, OUT PATIENT THERAPIST [address], , [facility] 11/20/2023 11:40:34 COVID-19, mRNA, LNP-S, PF, 30 mcg/0.3 mL dose 1 completed Connie Reid, OUT PATIENT THERAPIST [address], , [facility] 11/20/2023 11:40:34 COVID-19, mRNA, LNP-S, PF, 30 mcg/0.3 mL dose 1 completed Connie Reid, OUT PATIENT THERAPIST [address], , [facility] 11/20/2023 11:40:34 COVID-19, mRNA, LNP-S, PF, 30 mcg/0.3 mL dose 1 completed Connie Reid, OUT PATIENT THERAPIST [address], , [place] - [facility] 11/20/2023 11:40:34 Tdap 7 completed Connie Reid, OUT PATIENT THERAPIST 1 [facility], [place], [place], , [place] [facility] 11/20/2023 11:40:34 Influenza, high-dose, trivalent, PF 9 completed Connie Reid, OUT PATIENT THERAPIST 1 [facility], [place], [place], , [place] [facility] 11/20/2023 11:40:34 Td (adult), 5 Lf tetanus toxoid, preservative free, adsorbed 3 completed Connie Reid, OUT PATIENT THERAPIST 1 [facility],[address] [address], [place], [place], , [place] - [facility] 11/20/2023 11:40:34 Hep B, adult 9 completed Connie Reid, OUT PATIENT THERAPIST 1 [facility],[address] [address], [place], [place], , [place] [facility] 11/20/2023 11:40:34 Hep B, adult 0 completed Connie Reid, OUT PATIENT THERAPIST 1 [facility], [place], [place], , [place] [facility] 11/20/2023 11:40:34 Hep B, adult 9 completed Connie Reid, OUT PATIENT THERAPIST 1 [facility], [place], [place], , [place] [facility] 11/20/2023 11:40:34 Past Encounters Encounter ID Performer Location Encounter Start Date Encounter Closed Date Diagnosis/Indication Diagnosis SNOMED-CT Code Diagnosis ICD10 Code Diagnosis Note [id number] Connie Reid NP Main Office [address] [facility],[address] [place] 11/20/2023 10:49:55 11/20/2023 12:05:31 Patient new to provider [id number] 70280 Z76.89 Reviewed what medical history is available to me in [facility]. Will proceed as below. Pain of ri ght lower leg 6346244803 95378 M79.661 Follows with vascular surgery with some PAD. Agree with his prior OUT PATIENT THERAPIST's thoughts that this could be lumbar radiculopa thy due to right leg weakness. He had an MRI done, will request results, and consider referral to neurosurge ry. Tramadol is helpful, masspat appropriat e. Requests lyme testing- I think this is less likely but reasonable to check considerin g lyme disease is endemic to the [facility]. Type 2 rafaela hayes mellitus 81199315 Z79.4 Follows with endocrinol jaziel. He reports a1c 7-somethin g. Screening for malignant neoplasm of prostate 112298676 Z12.5 Agreeable to screen. Coronary arteriosclerosis 31532759 I25.10 Follows with cardiology + vascular regularly. Health Concerns Section Related Observation LastModified by Organization Detai ls LastModified Time None Recorded Concern Status LastModified by Organization Details LastModified Time None Recorded Advance Directives Directive None Recorded Payers Encounter Date Sequence Insurance Name Policy Number Policy Phipps Covered Member ID Phipps Member ID Guarantor Name 11/20/2023 1 [facility]: MEDICARE PPO BLUE (MEDICARE REPLACEMENT PPO) [id number] Caesar Flower [id number] Caesar Flower Notes Date Note Type [...] was sciatica.Follows with specialists: Dr. Rubio @ [facility] for DM2, cardiology, cardiac surgeons, Dr. Horne vascular surgery. Connie Reid NP 1 [facility],[address], [place], [address], [place] [facility] 11/21/2023 11:44:33
[2024-07-02 13:56] VITALS: BP 116/60; PULSE 67; BMI 37.9
--- NOTE | 2024-07-02 13:56 | A.OFFVIS_ITS ---
Vital Signs 07/02/24 13:56 Height 5 ft 10 in Weight 264 lb 1.82 oz BMI 37.9 BP 116/60 Blood Pressure Location Rt brachial Position Sitting Pulse 67 Pulse Source Pulse Oximeter Intake Visit Reasons: DM/Confirmed Intake Note: Patient present today for Type 2 Diabetes Mellitus. Last Diabetic eye exam: 11/2023 Last Podiatry Visit: Doesn't have one Random Glucose: 138 mg/dl HgA1C: 7.8% 05/31/24 Public Safety Telecommunicator Required: No Accompanied by: Spouse Allergies adhesive tape Allergy (Mild, Verified 07/02/24 14:00) Redness of Skin Medication List - Last Reconciled 07/02/24 by Stephany Cody PA-C albuterol sulfate 90 mcg/actuation 2 puffs PO Q6H PRN ascorbic acid (vitamin C) (Vitamin C) 500 mg PO DAILY blood sugar diagnostic ([employer] Verio test strips) As directed blood-glucose meter ([employer] Verio Reflect Meter) As directed blood-glucose sensor ([employer] Tomer 3 Plus Sensor device) Use daily As directed to monitor glucose cholecalciferol (vitamin D3) (Vitamin D3) 125 mcg PO DAILY clopidogrel 75 mg PO DAILY empagliflozin (Jardiance) 25 mg PO QAM ferrous sulfate 1 tab PO DAILY furosemide 40 mg PO DAILY insulin degludec (Tresiba FlexTouch U-200 insulin) 70 units (0.35 mL) subcut DAILY 30 days insulin lispro (Humalog KwikPen (U-100) Insulin) 24 units (0.24 mL) subcut TID 30 days insulin syringe-needle U-100 (BD Insulin Syringe) As directed lactobacillus combination no.4 (Probiotic) 3,000 mmu cells PO DAILY lancets ([employer] Delica Plus Lancet) As directed losartan 50 mg PO DAILY nitroglycerin mg sublingual omeprazole 40 mg PO BID pen needle, diabetic (Comfort EZ Pen [place]) use 1 needle 5 times day day for insulin injections rosuvastatin 20 mg PO BEDTIME tamsulosin 1 cap PO BEDTIME tirzepatide (Mounjaro) 12.5 mg (0.5 mL) subcut QWEEK HPI HPI DM/Confirmed: Details: Patient is a 73-year-old male with a significant past medical history of type 2 diabetes, hypertension, hyperlipidemia, peripheral vascular disease, chronic kidney disease, ischemic cardiomyopathy, CAD, and chronic anemia presenting today for a follow up regarding his diabetes. Endo: His A1c is 7.8. He is currently on Mounjaro 12.5 mg weekly, tresiba 65 units, admelog 24 units 3 times a day, and Jardiance 25 mg daily -He states the tresiba is much more effective. He is tolerating this very well. He really wants to go back on humalog. He feels the admelog does nothing. He does not like how it feels going in. States that he tolerates the NovoLog a little more. He just started the higher dose of the Mounjaro today. So far he is tolerating it. -He states that the lantus is ineffective. He states it wears off regularly and seems inconsistent. He has tried toujeo in the past and states it was also ineffective and caused headaches. He tells me he is also very frustrated because the NovoLog he feels this useless. He states that he will inject it and noticed that his blood sugars take a very long time, hours, to go down. When he was on Humalog he had much faster results and it seemed more effective for him. Sometimes when he uses NovoLog it also is painful to inject and sometimes causes headaches. CGM- usage 93%, GMI 7.7%. in range 52 %, hyperglycemic 48 %, very hyperglycemic 20% -no hypoglycemic events. States that he has not had a low blood sugar in a long time and would correct this with orange juice. He has glucose tabs also. Complications-diabetic retinopathy, neuropathy, nephropathy, peripheral vascular disease CV: Blood pressure today in the office is 116/60. He is currently on furosemide 40 mg, losartan 50 mg. Cholesterol is controlled with Crestor 20 mg. Follows with cardiology, Dr. Quezada. s/p recent stents and feeling well. Vasc: Follows with vascular surgery at [facility] Nephro: does not follow with nephrology. [facility] Medical History (Updated 07/02/24 @ 14:25 by Stephany Cody PA-C) SOB (shortness of breath) Chest discomfort Cough Lower back pain Elevated troponin Obesity HCV (hepatitis C virus) Ischemic cardiomyopathy T2DM (type 2 diabetes mellitus) Spondylosis of lumbar spine History of non-ST elevation myocardial infarction (NSTEMI) NSTEMI (non-ST elevated myocardial infarction) Post-nasal drainage Type 2 diabetes mellitus with diabetic neuropathy Thyroid nodule Neuropathy Chronic anemia BPH (benign prostatic hyperplasia) Diabetic retinopathy PVD (peripheral vascular disease) Goiter Vitamin D deficiency HLD (hyperlipidemia) HTN (hypertension) Surgical History S/P placement of nerve stimulator H/O colonoscopy History of esophagogastroduodenoscopy (EGD) S/P aorto-bifemoral bypass surgery Hx of basal cell carcinoma excision Family History Father Diabetes Mother Diabetes Leukemia Skin cancer Alzheimers disease Dementia Social History Household Members: Spouse Housing: House Do you presently have visiting nurse or other home services: No Alcohol intake: never Patient Tobacco Use Status: Former Tobacco user Tobacco use type: Cigarette Cigarette Packs Per Day: 3 Years Smoked: 30 e-Cigarette/Vaping Use: Never Used Second Hand Smoke Exposure: No Advance Directives Date on File: 08/02/21 service: Yes Current occupational status: retired Physical Exam Vital Signs: Last Vital Signs Pulse 67 07/02/24 13:56 BP 116/60 07/02/24 13:56 BMI result Body Mass Index 37.9 Const Orientation/consciousness: patient oriented x3 Neck Neck: Yes no lymphadenopathy Thyroid: Thyroid normal Carotids: no bruits Resp Auscultation: clear to auscultation bilaterally Cardio Rate: regular rate Rhythm: regular rhythm Heart sounds: S1 normal heart sound present and S2 normal heart sound present Peripheral pulses: dorsalis pedis present (+1 bilaterally) Neuro General: patient oriented x3, gait normal and no focal motor deficits Extrem Other: Monofilament sensation intact bilaterally. Vibratory sensation intact bilaterally. Skin intact. General: Yes normal to inspection Results Reviewed Results Reviewed: Laboratory Last Values Glucose (Clinic) 138 mg/dL (60-115) H 07/02/24 14:02 Assessment & Plan Assessment & Plan (1) Uncontrolled type 2 diabetes mellitus with hyperglycemia, with long-term current use of insulin: Code(s): E11.65 - Type 2 diabetes mellitus with hyperglycemia; Z79.4 - custodial (current) use of insulin Category: Medical Plan: Continue with the increased dose of the Mounjaro which he started today. I will increase Tresiba to 70 units. We will try to switch to Humalog as he has failed both Admelog and NovoLog. Continue with 24 units with meals 3 times a day. Continue with the Jardiance. (2) HTN (hypertension): Code(s): I10 - Essential (primary) hypertension Category: Medical Qualifiers: Hypertension type: unspecified Qualified Code(s): I10 - Essential (primary) hypertension Plan: WNL. Continue current regimen Medications: New insulin lispro (Humalog KwikPen (U-100) Insulin) 15 units (0.15 mL) subcut TID 30 days 15 mL 3RF insulin lispro (Humalog KwikPen (U-100) Insulin) 24 units (0.24 mL) subcut TID 30 days 30 mL 3RF Changed From insulin degludec (Tresiba FlexTouch U-200 insulin) 65 units (0.325 mL) subcut DAILY 30 days 18 mL 1RF To insulin degludec (Tresiba FlexTouch U-200 insulin) 70 units (0.35 mL) subcut DAILY 30 days 18 mL 1RF Discontinued insulin lispro (Admelog SoloStar U-100 Insulin lispro) Discontinued Reason: Doctor's Order 24 units (0.24 mL) subcut TID 15 mL 3RF Coding Level of Care Code Est Pt Level 4 (24136) Complex EM visit Add On G2211 Diagnoses Uncontrolled type 2 diabetes mellitus with hyperglycemia, with long-term current use of insulin E11.65; Z79.4 Hypertension, unspecified type I10 Hypertension type: unspecified
[2024-07-02 14:06] LABS: Glucose, Whole Blood 138 mg/dL (60-115)
== END 2024-07-02 14:27 | disposition home or self-care (01) ==
PROVIDERS: PCP Registered Nurse; Visit Provider Physician Assistant
DX: E11.65 Type 2 diabetes mellitus with hyperglycemia (principal); Z79.4 Long term (current) use of insulin; I10 Essential (primary) hypertension

== ENCOUNTER → 2024-07-02 13:53 | Outpatient (BNVA) | payer MEDICARE, SELFPAY | PROVIDERS: PCP Registered Nurse; Visit Provider Physician Assistant | DX: E11.65 Type 2 diabetes mellitus with hyperglycemia (principal); I10 Essential (primary) hypertension; Z79.4 Long term (current) use of insulin | CPT/HCPCS: 82947; 99212 ==

== ENCOUNTER 2024-09-27 13:32 | Outpatient (AMB) | payer MEDICARE, SELFPAY ==
[2024-09-27 13:40] VITALS: BP 120/66; PULSE 60; O2SAT 97; BMI 37.2
--- NOTE | 2024-09-27 13:40 | A.OFFVIS_ITS ---
Vital Signs 09/27/24 13:40 Height 5 ft 10 in Weight 259 lb 0.69 oz BMI 37.2 BP 120/66 Blood Pressure Location Lt brachial Position Sitting Pulse 60 Pulse Source Pulse Oximeter Pulse Oximetry (%) 97 Oxygen Delivery Method Room Air Intake Visit Reasons: DM Intake Note: Patient present today for Type 2 Diabetes Mellitus Last Diabetic eye exam: 07/2024 Last Podiatry Visit: Doesn't have one Random Glucose:128 mg/dl HgA1C: 7.3% Dehydrator Required: No Accompanied by: Spouse Allergies adhesive tape Allergy (Mild, Verified 09/27/24 13:45) Redness of Skin Medication List - Last Reconciled 09/27/24 by Stephany Cody PA-C albuterol sulfate 90 mcg/actuation 2 puffs PO Q6H PRN ascorbic acid (vitamin C) (Vitamin C) 500 mg PO DAILY blood sugar diagnostic (Meizu Verio test strips) As directed blood-glucose meter (Meizu Verio Reflect Meter) As directed blood-glucose sensor ([employer] (P) Tomer 3 Plus Sensor device) Use daily As directed to monitor glucose cholecalciferol (vitamin D3) (Vitamin D3) 125 mcg PO DAILY clopidogrel 75 mg PO DAILY empagliflozin (Jardiance) 25 mg PO QAM ferrous sulfate 1 tab PO DAILY furosemide 40 mg PO DAILY insulin aspart U-100 (Novolog FlexPen U-100 Insulin aspart) 24 units (0.24 mL) subcut TID 30 days insulin degludec (Tresiba FlexTouch U-200 insulin) 70 units (0.35 mL) subcut DAILY 30 days insulin syringe-needle U-100 (BD Insulin Syringe) As directed lactobacillus combination no.4 (Probiotic) 3,000 mmu cells PO DAILY lancets (Sidestageuch Delica Plus Lancet) As directed losartan 50 mg PO DAILY nitroglycerin mg sublingual omeprazole 40 mg PO BID pen needle, diabetic (Comfort EZ Pen Henley) use 1 needle 5 times day day for insulin injections rosuvastatin 20 mg PO BEDTIME tamsulosin 1 cap PO BEDTIME tirzepatide (Mounjaro) 12.5 mg (0.5 mL) subcut QWEEK HPI HPI DM: Details: Patient is a 74-year-old male with a significant past medical history of type 2 diabetes, hypertension, hyperlipidemia, peripheral vascular disease, chronic kidney disease, ischemic cardiomyopathy, CAD, and chronic anemia presenting today for a follow up regarding his diabetes. Endo: His A1c is 7.3. He is currently on Mounjaro 12.5 mg weekly, tresiba 70 units, novolog 24 units 3 times a day, and Jardiance 25 mg daily -He states that the lantus is ineffective. He states it wears off regularly and seems inconsistent. He has tried toujeo in the past and states it was also ineffective and caused headaches. He tells me he is also very frustrated because the NovoLog he feels this useless. He states that he will inject it and noticed that his blood sugars take a very long time, hours, to go down. When he was on Humalog he had much faster results and it seemed more effective for him. He states his insurance won't cover it. Sometimes when he uses NovoLog it also is painful to inject and sometimes causes headaches. -He was on trulicity and ozempic in the past. He states they were ineffective. CGM- usage 92%, GMI 6.8 %. in range 88 %, hyperglycemic 12 %, very hyperglycemic 0%, 0 hypoglycemia -no hypoglycemic events. States that he has not had a low blood sugar in a long time and would correct this with orange juice. He has glucose tabs also. Complications-diabetic retinopathy, neuropathy, nephropathy, peripheral vascular disease CV: Blood pressure today in the office is 120/66. He is currently on furosemide 40 mg, losartan 50 mg. Cholesterol is controlled with Crestor 20 mg. Follows with cardiology, Dr. Quezada. s/p recent stents and feeling well. Vasc: Follows with vascular surgery at [facility] Nephro: does not follow with nephrology. [facility] Medical History (Updated 07/02/24 @ 14:25 by Stephany Cody PA-C) SOB (shortness of breath) Chest discomfort Cough Lower back pain Elevated troponin Obesity HCV (hepatitis C virus) Ischemic cardiomyopathy T2DM (type 2 diabetes mellitus) Spondylosis of lumbar spine History of non-ST elevation myocardial infarction (NSTEMI) NSTEMI (non-ST elevated myocardial infarction) Post-nasal drainage Type 2 diabetes mellitus with diabetic neuropathy Thyroid nodule Neuropathy Chronic anemia BPH (benign prostatic hyperplasia) Diabetic retinopathy PVD (peripheral vascular disease) Goiter Vitamin D deficiency HLD (hyperlipidemia) HTN (hypertension) Surgical History S/P placement of nerve stimulator H/O colonoscopy History of esophagogastroduodenoscopy (EGD) S/P aorto-bifemoral bypass surgery Hx of basal cell carcinoma excision Family History Father Diabetes Mother Diabetes Leukemia Skin cancer Alzheimers disease Dementia Social History Household Members: Spouse Housing: House Do you presently have visiting nurse or other home services: No Alcohol intake: never Patient Tobacco Use Status: Former Tobacco user Tobacco use type: Cigarette Cigarette Packs Per Day: 3 Years Smoked: 30 e-Cigarette/Vaping Use: Never Used Second Hand Smoke Exposure: No Advance Directives Date on File: 08/02/21 service: Yes Current occupational status: retired Physical Exam Vital Signs: Last Vital Signs Pulse 60 09/27/24 13:40 BP 120/66 09/27/24 13:40 Pulse Ox 97 09/27/24 13:40 Oxygen Delivery Method Room Air 09/27/24 13:40 BMI result Body Mass Index 37.2 Const Orientation/consciousness: patient oriented x3 Neck Neck: Yes no lymphadenopathy Thyroid: Thyroid normal Carotids: no bruits Resp Auscultation: clear to auscultation bilaterally Cardio Rate: regular rate Rhythm: regular rhythm Heart sounds: S1 normal heart sound present and S2 normal heart sound present Peripheral pulses: dorsalis pedis present Neuro General: patient oriented x3, gait normal and no focal motor deficits Extrem Other: Monofilament sensation intact bilaterally. Vibratory sensation intact bilaterally. Skin intact. General: Yes normal to inspection Results AMB Hemoglobin A1c AMB Hemoglobin A1c 7.3 % Last Edit by EVERARDO Nair on 09/27/24 13:57 Results Reviewed Results Reviewed: Laboratory Last Values Glucose (Clinic) 128 mg/dL (60-115) H 09/27/24 13:47 Assessment & Plan Assessment & Plan (1) Uncontrolled type 2 diabetes mellitus with hyperglycemia, with long-term current use of insulin: Code(s): E11.65 - Type 2 diabetes mellitus with hyperglycemia; Z79.4 - snf (current) use of insulin Category: Medical Plan: increase mounjaro to 15 mg weekly continue tresiba 70 units and novolog 24 units TID continue jardiance 25 mg f/u in 3 months or sooner prn (2) HTN (hypertension): Code(s): I10 - Essential (primary) hypertension Category: Medical Qualifiers: Hypertension type: unspecified Qualified Code(s): I10 - Essential (primary) hypertension Plan: wnl continue current plan (3) HLD (hyperlipidemia): Code(s): E78.5 - Hyperlipidemia, unspecified Category: Medical Qualifiers: Hyperlipidemia type: unspecified Qualified Code(s): E78.5 - Hyperlipidemia, unspecified Plan: wnl continue crestor Orders: Orders AMB Hemoglobin A1c Today E11.65 - Type 2 diabetes mellitus with hyperglycemia, Z13.9 - Encounter for screening, unspecified, Z79.4 - termite treater helper (current) use of insulin Medications: New tirzepatide (Mounjaro) 15 mg (0.5 mL) subcut QWEEK 2 mL 5RF Discontinued tirzepatide (Mounjaro) Discontinued Reason: Doctor's Order 12.5 mg (0.5 mL) subcut QWEEK 2 mL 3RF Coding Level of Care Code Est Pt Level 4 (42255) Complex EM visit Add On G2211 Diagnoses Uncontrolled type 2 diabetes mellitus with hyperglycemia, with long-term current use of insulin E11.65; Z79.4 Hypertension, unspecified type I10 Hypertension type: unspecified Hyperlipidemia, unspecified hyperlipidemia type E78.5 Hyperlipidemia type: unspecified
[2024-09-27 13:50] LABS: Glucose, Whole Blood 128 mg/dL (60-115)
--- OUTSIDE RECORDS SUMMARY | 2024-09-27 16:10 | XMS_ITS | Continuity of Care Document ---
Author Organization [facility] Address [address] [place] [address] [address] [place] [address]- Care Team Providers Care Consulting Software Engineer Name Role Phone Clubb PILOT SUPERVISOR, Connie Primary Care Physician Encounter [facility] Date(s): 08/24/24 - 09/23/[address] [place], [place] [address] Attending Physician: Admtr, Ar8 Admitting Physician: Admtr, Ar8 Referring Physician: Admtr, Ar8 Encounter Type: Triage Allergies, Adverse Reactions, Alerts [...] 05/29/07 Recorded 1Result Comment: [12/28/2014] done at [facility] Medications Admelog SoloStar 100 units/mL injectable solution = 1 units, Subcutaneous Infusion, 0 Refills, Maintenance, 07/30/24 2:53:00 PM EST, Partial fill uponpatient request if the prescription is for a schedule II opioid drug. Start Date: 07/30/24 Status: Ordered Repeat number: 1 Amlodipine By Mouth, Daily, 0 Refills, Maintenance, 07/30/24 2:52:00 PM EST, Partial fill upon patient request if the prescription is for a schedule II opioid drug. Start Date: 07/30/24 Status: Ordered Repeat number: 1 amLODIPine 5 mg oral tablet 5 mg, 1, tablet, By Mouth, Daily, # 90 tablet, Refills 2, Tot. Refills 2, Maintenance, 05/31/24 1:00:00 PM EST, Route to Pharmacy Electronically, [facility] #[id number], Partial fill upon patient request if the [...] 11:08:00 AM EST, Route to Pharmacy Electronically, [facility] #[id number], Partial fill upon patient requestif the prescription is for a schedule II opioid drug., 177, cm, 04/28/24 8:23:00 EST, Height, 116.2, kg, 04/28/24 8:23:00 EST, Dry Weight Start Date: 04/28/24 Stop Date: 04/27/29 Status: Ordered Quantity: 90.0 Unit: tablet Repeat number: 5 cephalexin monohydrate 500 mg oral capsule 1 capsule = 500 mg, By Mouth, Daily, for 6 week(s), # 42 capsule, 4 Refills, Acute 04/08/25 4:31:00 PM EST, 09/10/24 4:31:00 PM EDT, Capsule, [facility] #[id number], Partial fill upon patient request if the prescription is for a schedule II opioid drug., 177, cm, 08/24/24 13:08:00 EDT, Height, 116.2, kg, 04/28/24 8:23:00 EST, Dry Weight Start Date: 09/10/24 Stop Date: 04/08/25 Status: Ordered Quantity: 42.0 Unit: capsule Repeat number: 5 clopidogrel 75 mg oral tablet 1, tablet, By Mouth, Daily, # 90 tablet, Refills 2, Tot. Refills 2, Maintenance, 05/31/24 12:59:00 PM EST, Route to Pharmacy Electronically, [facility] #[id number], 177, cm, 04/28/24 8:23:00 EST, Height, 116.2, [...] Refills, Soft Stop, 12/28/14 10:08:05 AM EDT, [facility]/pharmacy #[id number] Start Date: 12/28/14 Status: Ordered Quantity: 2.0 Unit: each Repeat number: 2 ezetimibe 10 mg oral tablet 1 tablet = 10 mg, By Mouth, Daily, # 90 tablet, 0 Refills, Maintenance, 09/16/24 9:18:00 AM EDT, Tablet, [facility] #[id number], Partial fill upon patient request if the prescription is for a schedule II opioid drug., 177, cm, 08/24/24 13:08:00 EDT, Height, 116.2, kg, 04/28/24 8:23:00 EST, Dry Weight Start Date: 09/16/24 Status: Ordered Quantity: 90.0 Unit: tablet Repeat number: 1 ferrous sulfate 325 mg oral enteric coated tablet 325 mg, 1, tablet, By Mouth, Daily, # 90 tablet, Refills 0, Tot. Refills 0, Maintenance, 08/17/21 2:28:00 PM EDT, Route to Pharmacy Electronically, [facility] #[id number], Partial fill upon patient request if the [...] 12:46:00 PM EST, Route to Pharmacy Electronically, [facility] #[id number], Partial fill upon patient request if the [...] 12:18:00 PM EST, Route to Pharmacy Electronically, [facility] #[id number], Partial fill upon patient request if the [...] Refills, Maintenance, 02/16/21 11:25:00 AM EDT, Solution, [facility], Partial fill upon patient [...] Refills, Maintenance, 02/16/21 11:20:00 AM EDT, Solution, [facility], Partial fill upon patient request if the prescription is for a schedule II opioid drug., 178, cm, 02/16/21 8:17:00 EDT, Height, 89.5, kg, 02/07/21 21:42:00 EDT, Dry Weight Start Date: 02/16/21 Stop Date: 03/18/21 Status: Ordered Quantity: 10.0 Unit: mL Repeat number: 1 losartan 50 mg oral tablet 1 tablet, By Mouth, Daily, # 90 tablet, 0 Refills, [facility] #[id number], 178, cm, 09/25/21 14:35:00 EDT, Height, 89.5, [...] 3 Refills, Maintenance, 09/19/23 8:01:00 AM EDT, [facility] #[id number], 178, cm, 07/31/23 15:03:00 EST, Height, 103.1, [...] Refills, Maintenance, 02/06/23 1:42:00 PM EDT, Tablet, [facility] #[id number], Partial fill upon patient request if the [...] 1.0 Unit: kit Repeat number: 1 Pen Lead, 31 G x 8 mm BD Ultra [...] PM EDT, Aerosol, Route to Pharmacy Electronically, [id number], [facility] #[id number], 178, cm, 08/17/21 13:53:00 EDT, Height, 89.5, [...] Refills, Maintenance, 03/18/24 3:31:00 PM EDT, Capsule, [facility] #[id number], Partial fill upon patient request if the [...] Date: 02/10/24 Status: Ordered Repeat number: 1 Tresiba Subcutaneous Infusion, Daily, 0 Refills, Maintenance, 07/30/24 2:53:00 PM EST, Partial fill upon patient request if the prescription is for a schedule II opioid drug. Start Date: 07/30/24 Status: Ordered Repeat number: 1 Problem List [...] Active Erectile dysfunction Confirmed Active Atherosclerosis of [place] arteries of extremities with intermittent claudication, bilateral [...] yeras ago. Sex Sex Representation Male (finding) Patient Care team information Care Team Personnel Name: Emanuel BABIN, Henri Carr Position: [facility] Renal MD Member Role: Lifetime Consulting Physician Address: [address] [place] [address] [address] [facility] [place] [address]- Telecom: Name: Daiana Sanford RN Position: [facility] RN Member Role: Primary Care Nurse Name: Moon Roth RN Position: [facility] RN Member Role: Primary Care Nurse Name: Connie Reid NP Position: [facility] Physician [facility] Medicine Member Role: PCP Address: [address] [place] [address]- Telecom: Name: Lavern Woody RN Position: [facility] RN Member Role: Primary Care Nurse Name: Luiz Long RN Position: [facility] RN Member Role: Primary Care Nurse Name: Concepcion Zepeda RN Position: [facility] RN Member Role: Primary Care Nurse Name: Kathi Cameron RN Position: [facility] RN Member Role: Primary Care Nurse Name: Greer Khan RN Position: [facility] RN Member Role: Primary Care Nurse Name: Janis Winslow RN Position: S RN Member Role: Primary Care Nurse Name: Uri French RN Position: [facility] RN Member Role: Primary Care Nurse Name: Trixie Johnson RN Position: [facility] RN Member Role: Primary Care Nurse Care Team Related Persons Name: RC VANEGASIS Insurance Providers Guarantor name: [facility] Information #: 1 Payer: [facility] PPO Member Number: NA Policy Number: NA Group Number: NA
--- OUTSIDE RECORDS SUMMARY | 2024-09-27 16:10 | XMS_ITS ---
Author Organization [facility], [facility] Address [address] [place] [phone] Care Team Providers Care Master Welder Name Role Phone CHRISTIANO ALANIS Primary Care Provider ALLERGIES No Known Allergies REASON FOR VISIT [...] > 10 years Section Notes: Lives in [place], [place] with w hunter. Encounters Encounter Location Date Provider Diagnosis [address] [id number] 10/01/2023 CHRISTIANO ALANIS PLAN OF TREATMENT No Information Progress Notes * JORGE FLOWER SrDOB:09/1950 (74 yo M)Acc No.[id number]:10/01/2023 Progress Notes Patient:??JORGE FLOWER Sr Provider:??Christiano Alanis DNP :1950?Age:73 Y?Sex:Jeff sin Date:10/01/2023 Phone: Address:[address] [place] [address] Subjective: * Chief Complaints: * ?1. F/U MEDS. * HPI: ?Patient Care Team:?Business Process Associate:??Dr. Quezada @ [facility] ?Dr. Gould - Cardiac Surgeon.?Cpr Instructor:??Dr. Torres @ [facility].?Surgeon:??Dr. Mercedes @ [facility].? Providers/Specialists: Infectious Disease - Dr. Latham @ [facility]. * Medical History:??Repair gra ft, Artobiefemoral Bypass, [...] Social History:?Migrated Social History: Smoking Status:Former smoker, [SNOMED-CT:[id number]], for 30yrs. ?Drugs/Alcohol:?Do you drink alcohol?: No. ?Lives in [place], [place] with . * Allergies:??N.K.D.A. Objective: Assessment: Plan: * Treatment: * Preventive Medicine:?Last CPE: 01/31/2022 @ [facility] DEXA: Yes, in past Colonoscopy: 3 months ago, Dr Torres @ [facility] Endoscopy: 2021 w/Dr Torres Covid Vac: Yes Flu Vac: Yes PV: Yes Shingles Vac: Yes. * Billing Information: * Visit Code:?? * Procedure Codes:?? * Sign off status: Pending * Provider:??Christiano Alanis DNP Date:??0 10/01/2023 History and Physical Notes * HPI (History of Present Illness) Category Sub-Category Detail Notes Category Not es Patient Care Team Business Process Associate: Dr. Quezada @ [facility] Dr. Gould - Cardiac Surgeon Providers/Specialist s: Infectious Disease - Dr. Latham @ [facility] Surgeon: Dr. Mercedes @ [facility] Cpr Instructor: Dr. Torres @ [facility]
--- OUTSIDE RECORDS SUMMARY | 2024-09-27 16:10 | XMS_ITS ---
Author Organization [facility] Address [address] [place], [place] [id number] Care Team Providers Care Industrial Aerial Installer Name Role Phone CHRISTIANO RIZO Primary Care Provider REASON FOR VISIT f/u meds SOCIAL HISTORY Sex Assigned At : Social History Observation Description Sex Assigned At Male Encounters Encounter Location Date Provider Diagnosis [address] [id number] 11/06/2023 CHRISTIANO RIZO PLAN OF TREATMENT No Information Progress Notes * JORGE FLOWER SrDOB:09/1950 (74 yo M)Acc No.[id number]:11/06/2023 Progress Note Patient:??JORGE FLOWER Sr Provider:??Christiano Rizo DNP :1950?Age:73 Y?Sex:Ma le Date:11/06/2023 Phone: Address:[address] [place], [place] [id number] Subjective: * Chief Complaints: * ?1. F/u meds. * Medical History:?? Objective: Assessment: Plan: * Treatment: * Billing Information: * Visit Code:?? * Procedure Codes:?? * Sign off status: Pending * Provider:??Christiano Rizo DNP Date:??0 11/06/2023
--- OUTSIDE RECORDS SUMMARY | 2024-09-27 16:10 | XMS_ITS | Clinical Summary ---
Author Organization [facility] Address [address] [address] Care Team Providers Care Milk Wagon Driver Name Role Phone Imani Alanis DNP Primary [...] Peripheral vascular disease 01/18/2022 080 07/2022 Immunizations Immunization Administration Dates Next Due Hepatitis B 11/20/2009,12/07/2008,11/09/2008 [...] Health Maintenance Due Date Last Done Comments Diabetes: Hemoglobin A1C 06/10/2022 Diabetes: Ophthalmology Exam 06/10/2022 04/13/2013, 03/10/2012, 01/30/2011, Additional history exists Diabetes: Pedal Pulse Checked 06/10/2022 Diabetes: Sensory Foot Exam 06/10/2022 Diabetes: Visual Foot Exam 06/10/2022 Influenza Vaccine (Season Ended) 2025 04/17/2021, 05/22/2019 Hepatitis B Vaccine Aged Out 11/20/2009, 12/07/2008, 11/09/2008 No longer eligible based on patient's age to complete this topic Pneumococcal Vaccine: 50+ Years Completed 06/24/2017, 12/28/2014 Colorectal Cancer Screening: Colonoscopy Discontinued 12/25/2021 Insurance [facility] Care Teams Milk Wagon Driver Relationship Specialty Start Date End Date Imani Alanis DNP [address] [place] [id number] PCP - General Nurse Practitioner 06/05/22
--- OUTSIDE RECORDS SUMMARY | 2024-09-27 16:10 | XMS_ITS | Data Portability ---
Author Organization [place] [facility], [employer] Address [address] [place] [address] Assessment Encounter Date Assessment Date Assessment LastModified by Organization Details LastModified Time 11/20/2023 11/20/2023 30 minutes spent on date of service on chart review, direct time spent with patient, and documentation of clinical encounter. Not available 11/21/2023 11:40:33 09/01/2024 09/01/2024 35 minutes spent on date of service on chart review, direct time spent with patient, and documentation of clinical encounter. Assessment - Diastolic dysfunction with slightly decreased ejection fraction, as indicated by the echocardiogram from 2022. - Moderate calcification of the aortic valve, potentially contributing to symptoms. - Possible chronic obstructive pulmonary disease (COPD) due to extensive smoking history, pending further pulmonary function tests. - Dyspnea potentially related to both cardiac and pulmonary issues, requiring further evaluation. Plan - Order pulmonary function tests to assess lung capacity and diagnose potential conditions like COPD. - Order a chest X-ray to evaluate lung health and identify any abnormalities that may contribute to breathing issues. - Prescribe Spiriva inhaler to potentially improve breathing. Instructions include not swallowing the capsule, placing it in the inhaler, and rinsing the mouth after use. Monitor for side effects such as dizziness or lightheadedness. - Schedule a follow-up appointment in 8 to 12 weeks to review test results and assess progress. Consider a telehealth visit if preferred. - Order blood work to check for anemia and other potential contributors to dyspnea. Ensure results are sent to the electronic tech and cable ferryboat operator for comprehensive care coordination. Prescription - Spiriva inhaler: Administered via capsule inhalation. Do not swallow the capsule. Follow instructions for use. Rinse mouth after use. Side effects may include dizziness or lightheadedness, though these are uncommon. Appointments - Follow-up appointment in 8 to 12 weeks, potentially via telehealth. Schedule with the front counter clerk. Not available 09/01/2024 20:55:01 Plan of Treatment Reminders Order Date Submit Date Provider Last Modified By Organization Details Last Modified Time Details [facility]ointments [facility] 11:40A M Connie Reid, DNP Not available Not available Not available FOLLO W UP 20 2024 01:40P M Connie Reid, DNP Not available Not available Not available Lab HbA1c (hemo globi n A1c), blood 2024 025 [facility] (Centralized Electronic Ordering - All Locations), Patient Can Go To The Location Of Their Choice, 09/15/2024 16:07:58 micro album in/cr eatin ine, mass ratio , urine 2024 025 [facility] (Centralized Electronic Ordering - All Locations), Patient Can Go To The Location Of Their Choice, 09/15/2024 16:07:57 CMP, serum or plasm a 2024 025 [facility] (Centralized Electronic Ordering - All Locations), Patient Can Go To The Location Of Their Choice, 09/15/2024 16:07:55 lipid panel , serum 2024 025 [facility] (Centralized Electronic Ordering - All Locations), Patient Can Go To The Location Of Their Choice, 09/15/2024 16:07:57 CBC 2024 025 [facility] (Centralized Electronic Ordering - All Locations), Patient Can Go To The Location Of Their Choice, 09/15/2024 16:07:56 PSA, serum or plasm a 2023 024 [facility] (Centralized Electronic Ordering - All Locations), Patient Can Go To The Location Of Their Choice, 01/14/2024 16:06:42 HbA1c (hemo globi n A1c), blood 2023 024 [facility] (Centralized Electronic Ordering - All Locations), Patient Can Go To The Location Of Their Choice, 01/14/2024 16:06:43 CMP, serum or plasm a 2023 024 [facility] (Centralized Electronic Ordering - All Locations), Patient Can Go To The Location Of Their Choice, 01/14/2024 16:06:41 lipid panel , serum 2023 024 [facility] (Centralized Electronic Ordering - All Locations), Patient Can Go To The Location Of Their Choice, 01/14/2024 16:06:42 lipid panel , serum 2023 024 [facility]), [address], [place], [address], 11/21/2023 11:46:08 CBC w/ auto diff 2023 024 [facility] (Centralized Electronic Ordering - All Locations), Patient Can Go To The Location Of Their Choice, 01/14/2024 16:06:40 lyme disea se Ab, serum 2023 [facility]24 [facility] Patient Can Go To The Location Of Their Choice, 12/25/2023 16:15:54 Referral pulmo nolog ist refer ral [address] Pulmonary Scheduling Dept, [address] [facility], [address], [address], 09/13/2024 09:55:57 Procedures None recor ded. Surgeries None recor ded. Imaging XR, chest , 2 view 2024 025 [facility] [place], [address], [place], [address], 09/14/2024 16:41:25 PFT, compl ete [address] (Pulmonary Lab), [address] [place], [address], 09/13/2024 09:53:38 Medication Orders Spiri va with Handi Haler 18 mcg and inhal ation capsu les 2024 025 [id number], [address] [place], [place], [id number], 09/01/2024 20:54:56 trama dol 50 mg table t 2023 024 [id number], [address], [place], [id number], 09/01/2024 13:50:58 Patient TargetsNo targets recorded. Patient InstructionsNo instructions recorded. 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 6 above high normal Predi abete s: 5.7 - 6.4 Diabe abner: >6.4 Glyce yvette contr ol for adult s with diabe abner: <7.0 Not Available [facility] ([facility]) [address] [facility], [place], [address], 01/14/2024 16:06:43 11/13/19 24 05/19/2023 US, doppl er echoc ardio gram No observ ation record ed. cris Not Available 10/31 14:44:48 11/13/19 24 07/30/2023 US, carot id arter y No observ ation record ed. cris Not Available 10/31 14:45:30 11/20/19 24 10/21/2023 imagi ng inter preta tion No observ ation record ed. [email or web address] [facility] [place] [address] [facility] [address], [place], [address], 11/25/2023 10:31:41 11/20/19 24 10/21/2023 MRI, cervi daria spine , w/o contr ast No observ ation record ed. [facility] [place] [address], [address], 11/22/2023 15:35:13 11/20/19 24 10/21/2023 MRI, cervi daria spine , w/o contr ast No observ ation record ed. [facility] [place] [address], [address], 11/22/2023 15:35:02 11/20/19 24 03/16/2019 MRI, shoul teodoro, w/o contr ast No observ ation record ed. [facility] [place] [address], [address], 11/22/2023 15:34:48 11/20/19 24 03/16/2019 MRI, sandor teodoro, w/o contr ast No observ ation record ed. [facility] [place] [address], [address], 11/21/2023 17:22:38 11/20/19 24 10/21/2023 MRI, sacru m + coccy x, w/o contr ast No observ ation record ed. [facility] [place] [address], [address], 11/22/2023 15:34:30 11/20/19 24 10/21/2023 MRI, sacru m + coccy x, w/o contr ast No observ ation record ed. [facility] [place] [address], [address], 11/22/2023 15:34:16 11/20/19 24 10/21/2023 MRI, sacru m + coccy x, w/o contr ast No observ ation record ed. [facility] [place] [address], [address], 11/22/2023 15:34:02 09/15/19 25 09/14/2024 XR, chest , 2 view Examin ation: Chest perfor med on 025. Histor y: Dyspne a on exerti on. Findin gs: Fronta l and latera l views of the chest are compar ed to a prior study dated 02/02/20 23. The cardia c and medias tinal silhou ettes are within normal limits . The lungs are clear. The osseou s and soft tissue struct ures are unrema rkable . Impres delmi: There is no acute cardio pulmon jsavir diseas e. WSN: [id number] Orderi ng Physic yamil: Connie Reid Dictat ed By: Corrie White MD Dictat ed Date/T yamini: 4:38 pm Review ed By: Corrie White MD Signed By: Corrie White MD Signed Date/T yamini: 4:38 pm Transc ribed By: YUE Transc ribed Date/T yamini: 4:37 pm Patien t Class: 5 [facility] (Outpt Imaging) [address] [facility], [place], [address], 09/14/2024 22:11:43 Result Notes None recorded. Problems Name Problem SNOMED Code Status Onset Date Resolution Date Notes Provider Name and Address Organization Details Recorded Time Benign prostatic hyperplasia 173209295 Active 2023 Lashanda emanuel, [place] - [facility] 4 14:46:30 Impacted cerumen 32844720 Active 2023 Lashanda sr null, [place] [facility] 4 14:46:41 Chronic cough 24628010 Active 2023 Lashanda sr null, [place] [facility] 4 14:46:51 Type 2 diabetes mellitus 20828077 Active 2023 Lashanda sr null, [place] - [facility] 4 14:46:57 Erectile dysfunction 187106228 Active 2023 Lashanda sr null[place] [facility] 4 14:47:07 History of non-ST segment elevation myocardial infarction 330117944 Active 2023 Lashanda sr null[place] [facility] 4 14:47:48 Acute non-ST segment elevation myocardial infarction 400113418 Active 2023 Lashanda sr null, [place] [facility] 4 14:54:26 Hyperlipide tracie 94962607 Active 2023 Lashanda sr null[place] [facility] 4 14:54:33 Hypertensiv e disorder 38616184 Active 2023 Lashanda sr null[place] [facility] 4 14:54:39 Hypogonadis m 21558609 Active 2023 Lashanda sr null[place] [facility] 4 14:54:46 Lesion of external ear 580144232 Active 2023 Lashanda sr null[place] [facility] 4 14:55:01 Obese class I 8709132514169 07 Active 2023 Lashanda sr null, [place] - [facility] 4 14:55:08 Pain of right shoulder region Active 2023 Lashanda sr null, [place] [facility] 4 14:55:21 Peripheral nerve disease 080749596 Active 2023 Lashanda sr null, [place] [facility] 4 14:55:49 Posterior rhinorrhea 44165386 Active 2023 Lashanda sr null, [place] [facility] 4 14:56:02 Peripheral vascular disease 186160943 Active 2023 Lashanda sr null, [place] [facility] 4 14:56:12 Pain of right lower leg 5278054494344 08 Active 2023 Connie Reid, DEDRICK [address], [address], [place], [address] [place] [facility] 4 11:36:39 Coronary arterioscle rosis 74072881 Active 2023 Connie Reid, DIRECTOR OF NURSES REGISTRY [address] [facility], [address], [place], [address], [place] - [facility] 4 11:42:28 Spinal stenosis of lumbar region 15451398 Active 2023 Connie Reid, DIRECTOR OF NURSES REGISTRY [address] [facility], [address], [place], [address], [place] [facility] 4 17:23:25 Dyspnea on exertion 65604622 Active 2024 Connie Reid, DIRECTOR OF NURSES REGISTRY [address] [facility], [address], [place], [address], [place] [facility] 5 14:05:44 Cough 10004836 Active 2024 Connie Reid, DIRECTOR OF NURSES REGISTRY [address] [facility], [address], [place], [address], [place] [facility] 14:08:18 Problem Notes None recorded. Procedures Surgical History Date Name Laterality Status Provider Name and Address Organization Details Recorded Time Knee arthroscopy/surge ry completed Lashanda [place] - [facility] 11/13/2023 14:56:52 cataract surgery completed [facility] [place] [facility] 11/13/2023 14:57:04 aortofemoral to popliteal vascular bypass completed [facility] [place] [facility] 11/13/2023 14:57:25 Imaging Results Imaging Date Name Status LastModified by Organization Details LastModified Time 05/19/2023 [facility] Information not available 11/13/2023 14:44:48 07/30/2023 US, carotid artery completed [facility] Infor mation not available 11/13/2023 14:45:30 10/21/2023 imaging interpretation [place] [address] [facility] [address], [address], 11/25/2023 10:31:41 10/21/2023 MRI, cervical spine, w/o contrast completed [facility] [address], [address], 11/22/2023 15:35:13 10/21/2023 MRI, cervical spine, w/o contrast [facility] [address] [facility] [address] [facility] [address] [place] [address], [address], 11/22/2023 15:35:02 03/16/2019 MRI, shoulder, w/o contrast [facility] [address], [address], 11/22/2023 15:34:48 03/16/2019 MRI, shoulder, w/o contrast completed [facility] [address] [facility] [address] [place] [address], [address], 11/21/2023 17:22:38 10/21/2023 MRI, sacrum + coccyx, w/o contrast [facility] [address], [address], 11/22/2023 15:34:30 10/21/2023 MRI, sacrum + coccyx, w/o contrast completed [facility] [place] [address], [address], 11/22/2023 15:34:16 10/21/2023 MRI, sacrum + coccyx, w/o contrast [facility] [place] [address], [address], 11/22/2023 15:34:02 09/14/2024 XR, chest, 2 view active [facility] (Outpt Imaging) [address] [facility], [place], [address], 09/14/2024 22:11:43 Procedure Notes None recorded. Medical Equipment None Reported. Allergies No known drug allergies Medications Name Sig Start Date Stop Date Status Note LastModified by Organization Details LastModified Time losartan 50 mg tablet TAKE 1 TABLET BY MOUTH DAILY 11/19 completed Not Available Not Available Not Available celecoxib 200 mg capsule TAKE 1 CAPSULE BY MOUTH DAILY WITH FOOD 09/01 completed Not Available Not Available Not Available cyclobenzap rine 10 mg tablet TAKE 1 TABLET BY MOUTH EVERY 8 HOURS AT BEDTIME FOR 21 DAYS NEEDED 11/19 completed Not Available Not Available Not Available furosemide 40 mg tablet TAKE 1 TABLET BY MOUTH DAILY active Not Available Not Available No t Available sildenafil 50 mg tablet TAKE 1 TABLET BY MOUTH ONCE DAILY NEEDED 09/01 completed Not Available Not Available Not Available prednisone 20 mg tablet TAKE 2 [...] Not Available Not Available No t Available amlodipine 5 mg tablet TAKE 1 TABLET BY MOUTH DAILY active Not Available Not Available No t Available omeprazole 40 mg capsule,del ayed release TAKE 1 CAPSULE BY MOUTH TWICE DAILY active Not Available Not Available No t Available tramadol 50 mg tablet TAKE 1 TABLET BY MOUTH THREE TIMES DAILY NEEDED 09/01 completed Not Available Not Available Not Available triamcinolo ne acetonide 0.1 % topical cream APPLY TWICE DAILY TO ITCHY AREA OF RIGHT LOWER ABDOMEN FOR UP TO 2 WEEKS ON 1 WEEK OFF MAY REPEAT NOT FOR FACE/GROI N/BODY FOLDS active Not Available Not Available No t Available ketorolac 0.5 % eye drops INSTILL 1 DROP IN LEFT EYE FOUR TIMES DAILY FOR 2 DAYS 09/01 completed Not Available Not Available Not Available ciclopirox 8 % topical solution 11/19 completed Not Available Not Available Not Available tamsulosin 0.4 mg capsule TAKE 1 CAPSULE BY MOUTH EVERY DAY IN THE EVENING active Not Available Not Available No t Available cephalexin 500 mg capsule TAKE 1 CAPSULE BY MOUTH EVERY 12 HOURS FOR 6 WEEKS 09/01 completed Not Available Not Available Not Available nitroglycer in 0.4 mg sublingual tablet ONE TABLET UNDER TONGUE NEEDED FOR CHEST PAIN EVERY 5 MINUTES MAX OF 3 TIMES active Not Available Not Available No t Available aspirin 81 mg chewable tablet CHEW AND SWALLOW ONE TABLET EVERY DAY 11/19 completed Not Available Not Available Not Available mupirocin 2 % topical ointment APPLY TO WOUND ON BACK UNTIL HEALED CAN USE UP TO 3 TIMES DAILY OR EVERY DAY WITH BANDAGE CHANGE 09/01 completed Not Available Not Available Not Available morphine 15 mg immediate release tablet TAKE 1 TABLET BY MOUTH EVERY 6 HOURS NEEDED FOR PAIN 11/19 completed Not Available Not Available Not Available losartan 100 mg tablet TAKE 1 TABLET BY MOUTH EVERY DAY active Not Available Not Available No t Available Adult Low Dose Aspirin 81 mg tablet,elizabeth yed release Take 1 tablet every day by oral route. active Not Available Not Available No t Available ezetimibe 10 mg tablet TAKE 1 TABLET BY MOUTH DAILY active Not Available Not Available No t Available Novolog FlexPen U-100 Insulin aspart 100 unit/mL (3 mL) subcutaneou s INJECT 24 UNITS SUBCUTANE OUS THREE TIMES DAILY active Not Available Not Available No t Available rosuvastati n 40 mg tablet TAKE 1 TABLET BY MOUTH DAILY active Not Available Not Available No t Available tiotropium bromide 18 mcg capsule with inhalation device INHALE THE CONTENTS OF 1 CAPSULE VIA INHALATIO N DEVICE EVERY DAY active Not Available Not Available No t Available BD Ultra-Fine Short Pen Needle 31 gauge x 5/16 USE ONE NEEDLE 5 TIMES A DAY FOR INSULIN INJECTION S active Not Available Not Available No t [...] TAKE 1 TABLET BY MOUTH EVERY DAY 09/01 completed Not Available Not Available Not Available Jardiance 25 mg tablet TAKE 1 TABLET BY MOUTH EVERY MORNING active Not Available Not Available No t Available Incruse Ellipta 62.5 mcg/actuati on powder for inhalation INHALE 1 PUFF BY MOUTH EVERY DAY active Not Available Not Available No t Available Tresiba FlexTouch U-200 insulin 200 unit/mL (3 mL) subcutaneou s pen ADMINISTE R 70 UNITS UNDER THE SKIN DAILY active Not Available Not Available No t Available Tresiba FlexTouch U-100 insulin 100 unit/mL (3 mL) subcutaneou s pen ADMINISTE R 56 UNITS UNDER THE SKIN DAILY 09/01 completed Not Available Not Available Not Available Admelog SoloStar U-100 Insulin lispro 100 unit/mL subcutaneou s pen ADMINISTE R 24 UNITS UNDER THE SKIN THREE TIMES DAILY 09/01 completed Not Available Not Available Not Available Dexcom G6 Transmitter device USE DIRECTED 11/19 completed Not Available Not Available Not Available Mounjaro 7.5 mg/0.5 mL subcutaneou s pen injector ADMINISTE R 7.5 MG UNDER THE SKIN EVERY WEEK 09/01 completed Not Available Not Available Not Available Mounjaro 5 mg/0.5 mL subcutaneou s pen injector ADMINISTE R 5 MG UNDER THE SKIN EVERY WEEK 09/01 completed Not Available Not Available Not Available Mounjaro 10 mg/0.5 mL subcutaneou s pen injector ADMINISTE R 10 MG UNDER THE SKIN EVERY WEEK 09/01 completed Not Available Not Available Not Available Mounjaro 12.5 mg/0.5 mL subcutaneou s pen injector ADMINISTE R 12.5 MG UNDER THE SKIN EVERY WEEK active Not Available Not Available No t Available Mounjaro 2.5 mg/0.5 mL subcutaneou s pen injector ADMINISTE R 2.5 MG UNDER THE SKIN EVERY WEEK FOR 4 WEEKS 11/19 completed Not Available Not Available Not Available FreeStyle Tomer 3 Plus Sensor device USE DAILY DIRECTED TO MONITOR GLUCOSE active Not Available Not Available No t Available Vitals Date Recorded Body weight Body mass index (BMI) Body height Heart rate Oxygen saturation Oxygen saturation in Arterial blood by Pulse oximetry Systolic blood pressure Diastolic blood pressure Provider Name and Address Organization Details Last Updated DateTime 4 606198. 95 g 34.9 kg/m2 177.8 cm 56 /min 96 % 96 % 140 mm[Hg] 82 mm[Hg] Damari Hernadez [place] - [facility] 4 11:16:34 Date Recorded Body height Provider Name an d Address Organization Details Last Updated DateTime 09/01/2024 177.8 cm Lashanda Tonishira [place] - [facility] 09/01/2024 13:44:13 Date Recorded Body mass index (BMI) Body weight Heart rate Oxygen saturation Oxygen saturation in Arterial blood by Pulse oximetry Systolic blood pressure Diastolic blood pressure Provider Name and Address Organization Details Last Updated DateTime 5 37.8 kg/m2 374516. 19 g 64 /min 97 % 97 % 134 mm[Hg] 72 mm[Hg] Jessa ceballosmahesh [facility] 5 13:55:34 Social History Question Answer Notes LastModified by Organizat ion Details LastModified Time Tobacco Smoking Status Former Smoker Lashanda Burger null, [place] [facility] 11/13/2023 14:57:51 When Did You Quit Smoking? 16+yearssinc elastcigaret te [facility] Information not available 11/13/2023 Sex: Unknown Functional Status None recorded. Mental Status None recorded. Family History Relationship Description Onset Age of this Age Resolved Age Notes LastModified by Organization Details LastModified Time Mother Dementia [facility] Not availa ble 11/13/2023 14:58:06 Mother Leukemia [facility] Not availa ble 11/13/2023 14:58:22 Father Diabetes mellitus [facility] Not available 10/31 14:58:13 Medical History No medical history recorded. Immunizations Vaccine Type Date Status Note Provider Nam e and Address Organization Details Recorded Time Influenza, high-dose, quadrivalent, PF 1 completed Connie Reid, DIRECTOR OF NURSES REGISTRY [address], [address], [facility] - [facility] 11/20/2023 11:40:34 Influenza, high-dose, quadrivalent, PF 2 completed Connie Reid, DIRECTOR OF NURSES REGISTRY [address], [address], [facility] Primary 11/20/2023 11:40:34 COVID-19, mRNA, LNP-S, PF, 30 mcg/0.3 mL dose 1 completed Connie Pinedab, DIRECTOR OF NURSES REGISTRY [address], [address], [facility] - [facility] 11/20/2023 11:40:34 COVID-19, mRNA, LNP-S, PF, 30 mcg/0.3 mL dose 1 completed Connie Pinedab, DIRECTOR OF NURSES REGISTRY [address], [address], [facility] - [facility] 11/20/2023 11:40:34 COVID-19, mRNA, LNP-S, PF, 30 mcg/0.3 mL dose 1 completed Connie Reid, DIRECTOR OF NURSES REGISTRY [address] [place] [address], [facility] [address], [place], [place], , [place] [facility] 11/20/2023 11:40:34 Tdap 7 completed Connie Reid, DIRECTOR OF NURSES REGISTRY [address] [place] [address], [facility] [address], [place], , [place] [facility] 11/20/2023 11:40:34 Influenza, high-dose, trivalent, PF 9 completed Connie Reid, DIRECTOR OF NURSES REGISTRY [address] [place] [address], [facility] [address], [place], , [place] [facility] 11/20/2023 11:40:34 Td (adult), 5 Lf tetanus toxoid, preservative free, adsorbed 3 completed Connie Reid, DIRECTOR OF NURSES REGISTRY [address] [place] [address], [facility] [address], [place], , [place] [facility] 11/20/2023 11:40:34 Hep B, adult 9 completed Connie Reid, DIRECTOR OF NURSES REGISTRY [address] [place] [address], [facility] [address], [place], , [place] [facility] 11/20/2023 11:40:34 Hep B, adult 0 completed Connie Reid, DIRECTOR OF NURSES REGISTRY [address] [place] [address], [facility] [address], [place], , [place] [facility] 11/20/2023 11:40:34 Hep B, adult 9 completed Connie Reid, DIRECTOR OF NURSES REGISTRY [address] [place] [address] [address], [place], , [place] [facility] 11/20/2023 11:40:34 Past Encounters Encounter ID Performer Location Encounter Start Date Encounter Closed Date Diagnosis/Indication Diagnosis SNOMED-CT Code Diagnosis ICD10 Code Diagnosis Note [id number] Connie Reid NP Main Office [address] [place] [address],[address] [place], [place] 1 11/20/2023 10:49:55 11/20/2023 12:05:31 Patient new to provider [id number] Z76.89 Reviewed what medical history is available to me in [facility]. Will proceed as below. Pain of ri ght lower leg 4468916218 51184 M79.661 Follows with vascular surgery with some PAD. Agree with his prior DIRECTOR OF NURSES REGISTRY's thoughts that this could be lumbar radiculopa thy due to right leg weakness. He had an MRI done, will request results, and consider referral to neurosurge ry. Tramadol is helpful, masspat appropriat e. Requests lyme testing- I think this is less likely but reasonable to check considerin g lyme disease is endemic to the [facility]. Type 2 rafaela betes mellitus [id number] Z79.4 Follows with endocrinol ogy. He reports a1c 7-somethin g. Screening for malignant neoplasm of prostate [id number] Z12.5 Agreeable to screen. Coronary arteriosclerosis [id number] I25.10 Follows with cardiology + vascular regularly. [id number] Connie Reid, DEDRICK Main Office [address] [place] [address],[address] [place] [address] 09/01/2024 13:42:00 09/01/2024 14:21:13 Dyspnea on exertion [id number] R06.09 Work up pending from cardiology , including echo.Check xray. No weight loss, hemoptysis to warrant CT. He quit smoking over 15 years ago.Check PFTs, refer to pulmonary. 3 PPD smoker, quit 15 years ago. Try spiriva, f/u in 8-12 weeks. Type 2 rafaela betes mellitus 11309846 Z79.4 Follows with endocrinol ogy. He reports a1c 7-somethin g. Recheck. Coronary arteriosclerosis [id number] I25.10 Follows with cardiology + vascular regularly. Health Concerns Section Related Observation LastModified by Organization Detai ls LastModified Time None Recorded Concern Status LastModified by Organization Details LastModified Time None Recorded Advance Directives Directive None Recorded Payers Encounter Date Sequence Insurance Name Policy Number Policy Phipps Covered Member ID Phipps Member ID Guarantor Name 11/20/2023 1 [facility]: MEDICARE PPO BLUE (MEDICARE REPLACEMENT PPO) [id number] Caesar Flower [id number] Caesar Flower 09/01/2024 1 [facility]: MEDICARE PPO BLUE (MEDICARE REPLACEMENT PPO) [id number] Caesar Flower [id number] Caesar Flower Notes Date Note Type [...] was sciatica.Follows with specialists: Dr. Rubio @ [facility] for DM2, cardiology, cardiac surgeons, Dr. Horne vascular surgery. Connie Reid NP [address] [facility], [facility] [address], [place], [address], [place] [facility] 11/21/2023 11:44:33 09/01/2024 text/html - Caesar Flower, 73-year-old male.- Experiencing shortness of breath for several months, since before the last cardiac stents were placed (04/25)- Underwent a diagnostic cardiac catheterization in April, during which two stents were placed.- Shortness of breath noted during a visit to the [facility] [place], leading to an ER visit at [facility].- Symptoms have not improved since the stent procedure; experiencing worsening with physical activity.- Recently returned from [facility], where he was severely winded walking to the beach.- Echocardiogram in 2022 showed moderate calcification of the aortic valve, decreased ejection fraction (40-45%), and diastolic dysfunction.- History of smoking 3 packs a day, quit 30-40 years ago.- Reports a recent deep cough, possibly due to post-nasal drip, with phlegm production.- No recent blood work or pulmonary function tests noted. Connie Reid NP [address] [facility], [address], [place], [address], [place] [facility] 09/01/2024 20:55:15
--- OUTSIDE RECORDS SUMMARY | 2024-09-27 16:10 | XMS_ITS | Continuity of Care Document ---
Author Organization [facility] Infectious Disease Address [address] [place] [address]- Care Team Providers Care Plant Facilities Technician Name Role Phone Clubb CERTIFIED REGISTERED DENTAL ASSISTANT, Connie Primary Care Physician Encounter [facility] Date(s): 08/24/24 - 09/23/24 [facility] Infectious Disease [address] [place] [id number] Attending Physician: Kendrick Mayorga Admitting Physician: Kendrick Mayorga Referring Physician: AdmtrKendrick Encounter Type: Triage Allergies, Adverse Reactions, Alerts [...] 05/29/07 Recorded 1Result Comment: [12/28/2014] done at [facility] Medications Admelog SoloStar 100 units/mL injectable solution [...] 1:00:00 PM EST, Route to Pharmacy Electronically, [facility] #15029, Partial fill upon patient request if the [...] 11:08:00 AM EST, Route to Pharmacy Electronically, [facility] #12158, Partial fill upon patient requestif the prescription [...] PM EST, 09/10/24 4:31:00 PM EDT, Capsule, [facility] #58818, Partial fill upon patient request if the [...] 12:59:00 PM EST, Route to Pharmacy Electronically, [facility] #69191, 177, cm, 04/28/24 8:23:00 EST, Height, 116.2, [...] Soft Stop, 12/28/14 10:08:05 AM EDT, [facility]/pharmacy #[id number] Start Date: 12/28/14 Status: Ordered Quantity: 2.0 Unit: each Repeat number: 2 ezetimibe 10 mg oral tablet 1 tablet = 10 mg, By Mouth, Daily, # 90 tablet, 0 Refills, Maintenance, 09/16/24 9:18:00 AM EDT, Tablet, [facility] #03254, Partial fill upon patient request if the [...] 2:28:00 PM EDT, Route to Pharmacy Electronically, [facility] #66340, Partial fill upon patient request if the [...] 12:46:00 PM EST, Route to Pharmacy Electronically, [facility] #69390, Partial fill upon patient request if the [...] 12:18:00 PM EST, Route to Pharmacy Electronically, [facility] #21923, Partial fill upon patient request if the [...] Refills, Maintenance, 02/16/21 11:25:00 AM EDT, Solution, [facility] 3, Partial fill upon patient requestif the prescription is for a schedule II opioid drug., 178, cm, 02/16/21 8:17:00 EDT, Height, 89.5,kg, 02/07/21 21:42:00 EDT, Dry Weight Start Date: [...] Refills, Maintenance, 02/16/21 11:20:00 AM EDT, Solution, [facility] 3, Partial fill upon patient request if the prescription is for a schedule II opioid drug., 178, cm, 02/16/21 8:17:00 EDT, Height, 89.5, kg, 02/07/21 21:42:00 EDT, Dry Weight Start Date: 02/16/21 Stop Date: 03/18/21 Status: Ordered Quantity: 10.0 Unit: mL Repeat number: 1 losartan 50 mg oral tablet 1 tablet, By Mouth, Daily, # 90 tablet, 0 Refills, [facility] #05476, 178, cm, 09/25/21 14:35:00 EDT, Height, 89.5, [...] 3 Refills, Maintenance, 09/19/23 8:01:00 AM EDT, [facility] #70283, 178, cm, 07/31/23 15:03:00 EST, Height, 103.1, [...] Refills, Maintenance, 02/06/23 1:42:00 PM EDT, Tablet, [facility] #92307, Partial fill upon patient request if the [...] 1.0 Unit: kit Repeat number: 1 Pen [place], 31 G x 8 mm BD Ultra [...] PM EDT, Aerosol, Route to Pharmacy Electronically, [id number], [facility] #19768, 178, cm, 08/17/21 13:53:00 EDT, Height, 89.5, [...] Refills, Maintenance, 03/18/24 3:31:00 PM EDT, Capsule, [facility] #15108, Partial fill upon patient request if the [...] Active Erectile dysfunction Confirmed Active Atherosclerosis of [place] arteries of extremities with intermittent claudication, bilateral [...] Personnel Name: Emanuel BABIN, Henri Carr Position: [facility] Renal MD Member Role: Lifetime Consulting Physician Address: [address] [place] [address] [address] [place] [address]- Telecom: Name: Daiana Sanford RN Position: [facility] RN Member Role: Primary Care Nurse Name: Moon Roth RN Position: [facility] RN Member Role: Primary Care Nurse Name: Connie Reid NP Position: [facility] Physician [facility] Medicine Member Role: PCP Address: [address] [place] [address]- Telecom: Name: Lavern Woody RN Position: [facility] RN Member Role: Primary Care Nurse Name: Luiz Long RN Position: [facility] SN RN Member Role: Primary Care Nurse Name: Concepcion Zepead RN Position: [facility] RN Member Role: Primary Care Nurse Name: Kathi Cameron RN Position: [facility] RN Member Role: Primary Care Nurse Name: Greer Khan RN Position: [facility] RN Member Role: Primary Care Nurse Name: Janis Winslow RN Position: S RN Member Role: Primary Care Nurse Name: Uri French RN Position: S RN Member Role: Primary Care Nurse Name: Trixie Johnson RN Position: S RN Member Role: Primary Care Nurse Care Team Related Persons Name: JULISSA VANEGAS Insurance Providers Guarantor name: [facility] Information #: 1 Payer: [facility] PPO Member Number: NA Policy Number: NA Group Number: NA
--- OUTSIDE RECORDS SUMMARY | 2024-09-27 16:10 | XMS_ITS | Continuity of Care Document ---
Author Organization [facility] Address [address] [place] [address]- Care Team Providers Care Slag Expander Name Role Phone Jeanette TSE, Connie Primary Care Physician Encounter 09/14/24 - 09/21/24 [facility] [address], [facility] [address] [place] [address]- Attending Physician: Connie Reid NP Admitting Physician: Connie Reid NP Referring Physician: Connie Reid NP Encounter Type: OutPatient One Time Allergies, Adverse Reactions, Alerts Substance Criticality Severity [...] 05/29/07 Recorded 1Result Comment: [12/28/2014] done at [facility] Medications Admelog SoloStar 100 units/mL injectable solution [...] 1:00:00 PM EST, Route to Pharmacy Electronically, [facility] #56545, Partial fill upon patient request if the [...] 11:08:00 AM EST, Route to Pharmacy Electronically, [facility] #35836, Partial fill upon patient requestif the prescription [...] PM EST, 09/10/24 4:31:00 PM EDT, Capsule, [facility] #45478, Partial fill upon patient request if the [...] 12:59:00 PM EST, Route to Pharmacy Electronically, [facility] #69793, 177, cm, 04/28/24 8:23:00 EST, Height, 116.2, [...] Refills, Soft Stop, 12/28/14 10:08:05 AM EDT, [facility]/pharmacy #0693 Start Date: 12/28/14 Status: Ordered Quantity: 2.0 Unit: each Repeat number: 2 ezetimibe 10 mg oral tablet 1 tablet = 10 mg, By Mouth, Daily, # 90 tablet, 0 Refills, Maintenance, 09/16/24 9:18:00 AM EDT, Tablet, [facility] #44845, Partial fill upon patient request if the [...] 2:28:00 PM EDT, Route to Pharmacy Electronically, [facility] #55441, Partial fill upon patient request if the [...] 12:46:00 PM EST, Route to Pharmacy Electronically, [facility] #12478, Partial fill upon patient request if the [...] 12:18:00 PM EST, Route to Pharmacy Electronically, [facility] #26984, Partial fill upon patient request if the [...] Refills, Maintenance, 02/16/21 11:25:00 AM EDT, Solution, [facility], Partial fill upon patient request if [...] Refills, Maintenance, 02/16/21 11:20:00 AM EDT, Solution, [facility] 3, Partial fill upon patient request if the prescription is for a schedule II opioid drug., 178, cm, 02/16/21 8:17:00 EDT, Height, 89.5, kg, 02/07/21 21:42:00 EDT, Dry Weight Start Date: 02/16/21 Stop Date: 03/18/21 Status: Ordered Quantity: 10.0 Unit: mL Repeat number: 1 losartan 50 mg oral tablet 1 tablet, By Mouth, Daily, # 90 tablet, 0 Refills, [facility] #56864, 178, cm, 09/25/21 14:35:00 EDT, Height, 89.5, [...] 3 Refills, Maintenance, 09/19/23 8:01:00 AM EDT, [facility] #63874, 178, cm, 07/31/23 15:03:00 EST, Height, 103.1, [...] Refills, Maintenance, 02/06/23 1:42:00 PM EDT, Tablet, [facility] #07171, Partial fill upon patient request if the [...] 1.0 Unit: kit Repeat number: 1 Pen [place], 31 G x 8 mm BD Ultra [...] PM EDT, Aerosol, Route to Pharmacy Electronically, [id number], [facility] #64060, 178, cm, 08/17/21 13:53:00 EDT, Height, 89.5, [...] Refills, Maintenance, 03/18/24 3:31:00 PM EDT, Capsule, [facility] #91791, Partial fill upon patient request if the [...] Active Erectile dysfunction Confirmed Active Atherosclerosis of [place] arteries of extremities with intermittent claudication, bilateral [...] DM Type II Uncontrolled 250.02 Confirmed Active Results Radiology Reports * Exam Date Time Procedure Performing Provider Status 09/14/24 12:29 PM Chest 2 Views Frontal and Lat Ozzy Retana; Storm (Verified) Notes: (Chest 2 Views Frontal and Lat) Reason For Exam: DYSPNEA ON EXERTION RESULT: Chest 2 Views Frontal and Lat Examination: Chest performed on 09/14/2024. History: Dyspnea on exertion. Findings: Frontal and lateral views of the chest are compared to a prior study dated 02/01/2023. The cardiac and mediastinal silhouettes are within normal limits. The lungs are clear. The osseous and soft tissue structures are unremarkable. Impression: There is no acute cardiopulmonary disease. WSN: [id number] Ordering Physician: Connie Reid Dictated By: Corrie Singer MD Dictated Date/Time: 09/14/24 4:38 pm Reviewed By: Corrie Singer MD Signed By: Corrie Singer MD Signed Date/Time: 09/14/24 4:38 pm Transcribed By: YUE Transcribed Date/Time: 09/14/24 4:37 pm Social History Social History Type Response Tobacco Other: quit 30 yeras ago. Sex Sex Representation Male (finding) Patient Care team information Care Team Personnel Name: Henri Castellanos MD Position: [facility] Renal MD Member Role: Lifetime Consulting Physician Address: [address] [place] [address] [address] [place] [address]- [place] Telecom: Name: Daiana Sanford RN Position: [facility] RN Member Role: Primary Care Nurse Name: Moon Roth RN Position: [facility] RN Member Role: Primary Care Nurse Name: Connie Reid NP Position: [facility] Physician [facility] Medicine Member Role: PCP Address: [address] [facility] [place] [address]- [place] Telecom: Name: Lavern Woody RN Position: [facility] RN Member Role: Primary Care Nurse Name: Luiz Long RN Position: [facility] SN RN Member Role: Primary Care Nurse Name: Concepcion Zepeda RN Position: [facility] RN Member Role: Primary Care Nurse Name: Kathi Cameron RN Position: [facility] RN Member Role: Primary Care Nurse Name: Greer Khan RN Position: [facility] RN Member Role: Primary Care Nurse Name: Janis Winslow RN Position: [facility] RN Member Role: Primary Care Nurse Name: Uri French RN Position: [facility] RN Member Role: Primary Care Nurse Name: Trixie Johnson RN Position: [facility] RN Member Role: Primary Care Nurse Care Team Related Persons Name: JULISSA VANEGAS Insurance Providers Guarantor name: J[facility] Information #: 1 Payer: [facility] PPO Member Number: [id number] Policy Number: NA Group Number: [id number] Health Plan Information #: 2 Payer: [facility] PPO Member Number: [id number] Policy Number: NA Group Number: [id number]
--- OUTSIDE RECORDS SUMMARY | 2024-09-27 16:10 | XMS_ITS ---
Author Organization [facility] Address [address] [place], [place] [id number] Care Team Providers Care Coat Presser Name Role Phone CHRISTIANO ALANIS Primary Care Provider [phone] ALLERGIES No Known Allergies REASON FOR REFERRAL Reason please see MRI order in DOS 10/06/23 Diagnosis 1 Spondylolisthesis, l umbosacral region (M43.17) Referral Organization [facility] Referring Provider First Name CHRISTIANO Referring Provider Last Name DARRIUS Referring Provider Speciality Nurse Prac titioner Referred Organization [facility], [facility] Referred Address [address] [place], [id number], Referred Provider Specialty Radiology General Notes BARBARA NOLASCOAIL 0 10/13/2023 10:48:24 AM >order form, demographics, insurance info, order and office note faxed to Jennifer [phone] Referral Priority Routine REASON FOR VISIT F/U MEDS MEDICATIONS Medication SIG (Take, Route, Frequency, Duration) Notes Start Date End Date Status PREGABALIN 150MG CAPSULES TAKE 1 CAPSULE BY MOUTH THREE TIMES DAILY PREGABALIN 150MG CAPSULES *Reorder from [facility] for eRx and Interaction Alerts* 10/15/2021 Not-Taking [...] SULFATE 325MG EC TABS RED *Reorder from [facility] for eRx and Interaction Alerts* 08/17/2021 Active Morphine Sulfate ER 60 MG 1 capsule Orally Once a day Not-Taking ROSUVASTATIN CALCIUM 20 MG TAKE 1 TABLET BY MOUTH EVERY DAY ROSUVASTATIN CALCIUM 20 MG *Reorder from [facility] for eRx and Interaction Alerts* 05/09/2021 Active [...] TWICE DAILY OMEPRAZOLE 40MG CAPSULES *Reorder from [facility] for eRx and Interaction Alerts* 10/31/2021 Active Ipratropium Sweet Water 0.03 % USE 2 SPRAYS IN EACH [...] > 10 years Section Notes: Lives in [place], [place] with nathalia harrison. VITAL SIGNS Blood pressure systolic 138 mm Hg 10/06/19 24 Blood pressure diastolic 82 mm Hg 024 Heart Rate 64 /min 10/06/2023 Height 70 in 10/06/2023 Weight 233.0 lbs 10/06/2023 BMI 33.43 kg/m2 10/06/2023 Oximetry 97 % 10/06/2023 Height-cm 177.80 cm 10/06/2023 Weight-kg 105.69 kg 10/06/2023 Encounters Encounter Location Date [facility] [address] [id number] 10/06/2023 CHRISTIANO ALANIS Essential (primary) hypertension I10 [...] will send to [facility] in [place] A1C down to 6.9, and average BS [...] will send to [facility] in [place] A1C down to 6.9, and average BS [...] see MRI order in DOS 10/06/23 , [address] [place] [address] [place], [id number], @[facility], Next Appt Details Follow Up: 4 Weeks, Reason: f/u BP Progress Notes * CAESAR FLOWER SrDOB:09/1950 (73 yo M)Acc No.[id number]:10/06/2023 Progress Notes Patient:??CAESAR FLOWER Sr Provider:??Christiano Alanis DNP :1950?Age:73 Y?Sex:Ma le Date:10/06/2023 Phone: Address:[address] [place] [address] Subjective: * Chief Complaints: * ?F/U MEDS * HPI: ?Patient Care Team:?Inside Trucker:??Dr. Quezada @ [facility] ?Dr. Gould - Cardiac Surgeon.?Chief [place] Division:??Dr. Torres @ [facility].?Surgeon:??Dr. Mercedes @ [facility].? Providers/Specialists: Infectious Disease - Dr. Latham @ [facility]. ?Visit info:? Caesar presents in the office [...] Social History:?Migrated Social History: Smoking Status:Former smoker, [SNOMED-CT:[id number]], for 30yrs. ?Drugs/Alcohol:?Do you drink alcohol?: No. ?Lives in [place], [place] with . * Medications:??TakingNitrogly cerin 0.4 [...] to Pharmacist: OMEPRAZOLE 40MG CAPSULES *Reorder from [facility] for eRx and Interaction Alerts*Ipratropium Sweet Water 0.03 % Solution USE 2 SPRAYS IN [...] Pharmacist: ROSUVASTATIN CALCIUM 20 MG *Reorder from [facility] for eRx and Interaction Alerts*FERROUS SULFATE 325MG EC TABS RED TAKE 1 TABLET BY MOUTH DAILY , Notes to Pharmacist: FERROUS SULFATE 325MG EC TABS RED *Reorder from [facility] for eRx and Interaction Alerts*traMADol HCl 50 [...] to Pharmacist: OMEPRAZOLE 40MG CAPSULES *[facility] Interaction [facility]*Taking Ipratropium Sweet Water 0.03 % Solution USE 2 SPRAYS IN [...] Pharmacist: ROSUVASTATIN CALCIUM 20 MG *Reorder from [facility] for eRx and Interaction Alerts*Taking FERROUS SULFATE 325MG EC TABS RED TAKE 1 TABLET BY MOUTH DAILY , Notes to Pharmacist: FERROUS SULFATE 325MG EC TABS RED *[facility] and Interaction Alerts*Taking traMADol HCl [...] to Pharmacist: PREGABALIN 150MG CAPSULES *Reorder from [facility] for eRx and Interaction Alerts*Medication List reviewed [...] to Pharmacist: PREGABALIN 150MG CAPSULES *Reorder from [facility] for eRx and Interaction Alerts*Medication List reviewed [...] will send to [facility] in [place] A1C down to 6.9, and average BS [...] Codes:?? * Preventive Medicine:?Last CPE: 01/31/2022 @ [facility] ?DEXA: Yes, in past Colonoscopy: 3 months ago, Dr Torres @ [facility] ?Endoscopy: 2021 w/Dr Torres ?Covid Vac: Yes ?Flu Vac: Yes ?PV: Yes ?Shingles Vac: Yes. * Follow Up:??4 Weeks (Reason: f/u BP) * Billing Information: * Visit Code:?? 52697 Office Visit, Est Pt., Level 3. * Procedure Codes:?? * Sign off status: Completed true * Provider:??Christiano Alanis DNP Date:??0 10/06/2023 History and Physical Notes * HPI (History of Present Illness) Category Sub-Category Detail Notes Category Not es Patient Care Team Inside Trucker: Dr. Quezada @ [facility] Dr. Gould - Cardiac Surgeon Providers/Specialist s: Infectious Disease - Dr. Latham @ [facility] Surgeon: Dr. Mercedes @ [facility] Chief [place]son Division: Dr. Torres @ [facility] Visit info Caesar presents in the office [...]
--- OUTSIDE RECORDS SUMMARY | 2024-09-27 16:10 | XMS_ITS | Patient Health Record ---
Author Organization [facility], [facility] Address [address], [place] [id number] Care Team Providers Care Direct Service Worker Name Role Phone CHRISTIANO RIZO Primary Care Provider ALLERGIES No Known Allergies REASON FOR REFERRAL Reason please see MRI order in DOS 10/06/23 Diagnosis 1 Spondylolisthesis, l umbosacral region (M43.17) Referral Organization [facility] Referring Provider First Name CHRISTIANO Referring Provider Last Name DARRIUS Referring Provider Speciality Nurse Prac titioner Referred Organization [facility] Referred Address [address], [id number], Referred Provider Specialty Radiology General Notes BARBARA NOLASCOAIL 0 10/13/2023 10:48:24 AM >order form, demographics, insurance info, order and office note faxed to Jennifer [phone] Referral Priority Routine MEDICATIONS Medication SIG (Take, Route, Frequency, Duration) Notes Start Date End Date Status OMEPRAZOLE 40MG CAPSULES TAKE 1 CAPSULE BY MOUTH TWICE DAILY OMEPRAZOLE 40MG CAPSULES *Reorder from [facility] for eRx and Interaction Alerts* 10/31/2021 Active Celecoxib 200 MG 1 capsule with food Orally Once a day for 90 days Not-Taking Ipratropium [place] 0.03 % USE 2 SPRAYS IN EACH [...] DAY ROSUVASTATIN CALCIUM 20 MG *Reorder from [facility] for eRx and Interaction Alerts* 05/09/2021 Active Losartan Potassium 100 MG TAKE 1 TABLET BY MOUTH EVERY DAY for 90 Active Probiotic - as directed Orally Active FERROUS SULFATE 325MG EC TABS RED TAKE 1 TABLET BY MOUTH DAILY FERROUS SULFATE 325MG EC TABS RED *Reorder from [facility] for eRx and Interaction Alerts* 08/17/2021 Active Metoprolol Succinate 100 MG 1.5 capsules Orally Once a day Active PREGABALIN 150MG CAPSULES TAKE 1 CAPSULE BY MOUTH THREE TIMES DAILY PREGABALIN 150MG CAPSULES *Reorder from [facility] for eRx and Interaction Alerts* 10/15/2021 Not-Taking [...] > 10 years Section Notes: Lives in [place], [place] with w hunter. [place] with w hunter. [place] with w hunter. [place] with [place] hunter[place]. [place] with w uhnter. [place] with [place] hunter. [place] hunter. [place]. [place]. [place]. [place]. [place]. [place]. [place]. [place]. [place] with [place]. [place] with w hunter. PROBLEMS Problem Type ICD Code Onset Dates Problem Status W/U Status Risk SNOMED Code Notes Problem Type 2 diabetes mellitus with diabetic chronic kidney disease (E11.22) Active confirmed Diabetic renal disease (325457935) Problem Hyperlipidemia, unspecified (E78.5) Active confirmed Hyperlipidemia (81228647) Problem Essential (primary) hypertension (I10) Active confirmed Essential hypertension (49675388) Problem Non-ST elevation (NSTEMI) myocardial infarction (I21.4) Active confirmed Acute non-ST se gment elevation myocardial infarction (916615246) Problem Spondylolisthes is, lumbosacral region (M43.17) Active confirmed Acquired spondylolisthesis (992298941) Problem Erectile dysfunction due to diseases classified elsewhere (N52.1) Active confirmed Erectile dysfun ction (disorder) (707343970) Problem Abnormal findings on diagnostic imaging of other specified body structures (R93.89) Active confirmed Imaging result abnormal (713800244) Problem Sciatica of right side (M54.31) Active confirmed Sciatica (98447654) Problem Diabetic angiopathy (E11.51) Active confirmed Type 2 diabetes mellitus with peripheral angiopathy (194619360) VITAL SIGNS Heart Rate 64 /min 10/06/2023 Blood pressure diastolic 82 mm Hg 10/06/2023 Height-cm 177.80 cm 10/06/2023 Oximetry 97 % 10/06/2023 Weight-kg 105.69 kg 10/06/2023 Height 70 in 10/06/2023 Blood pressure systolic 138 mm Hg 10/06/2023 Weight 233.0 lbs 10/06/2023 BMI 33.43 kg/m2 10/06/2023 Encounters Encounter Location Date Provider Diagnosis [address] [id number] 10/01/[address] [id number] 11/06/[address] [id number] 10/06/2023 [facility] Essential (primary) hypertension I10 ; Type 2 diabetes mellitus with diabetic chronic kidney disease E11.22 ; Erectile dysfunction due to diseases classified elsewhere N52.1 ; Non-ST elevation (NSTEMI) myocardial infarction I21.4 and Spondylolisthesis, lumbosacral region M43.17 ASSESSMENTS Encounter Date Diagnosis Assessment Notes Treatment Notes Treatment Clinical Notes Section Notes 10/06/2023 Type 2 diabetes mellitus with diabetic chronic kidney disease (ICD-10 - E11.22) Condition is stable and well controlled on current treatment. No changes made, medication(s) refilled as indicated Having trouble finding luke, we will send to [facility] in [place] A1C down to 6.9, and average BS are 159 according to his CGM 10/06/2023 Essential (primary) hypertension (ICD-10 - I10) Condition is stable and well controlled on current treatment. No changes made, medication(s) refilled as indicated 10/06/2023 Erectile dysfunction due to diseases classified [...] thigh, left 06/17/2023 CARDIO IQ(R) LIPID PANEL (78766) 024 ALBUMIN, RANDOM URINE W/CREATININE (6517 ) 07/16/2023 COMPREHENSIVE METABOLIC PANEL (19089) CBC (H/H, RBC, INDICES, WBC, PLT) (1759) 07/16/2023 C-REACTIVE PROTEIN (4420) 07/16/2023 CARDIO IQ(R) HEMOGLOBIN A1c (87855) 07/03 CULTURE, BLOOD NO.2 (77961) 07/16/2023 APOLIPOPROTEIN B 11/01/2022 CBC (COMPLETE BLOOD COUNT) WITH DIFF 07/2022 COMPREHENSIVE METABOLIC PANEL 11/01/2022 HEMOGLOBIN A1C 11/01/2022 LIPID PANEL, REFLEX TO DIRECT LDL 2022 MICROALBUMIN, URINE 11/01/2022 Insurance Providers Payer Name Payer Address Payer Phone Subscriber Number Group Number Insured Name Patient Relationship to Insured Coverage Start Date Coverage End Date [facility] MEDICARE ADVANTAGE [address] [place] [phone] [id number] JORGE SULLIVAN Self - patient is the insured MEDICAL (GENERAL) HISTORY Medical History History ICD Code Repair graft Artobiefemoral Bypass Arthroscopy Knee Surgical History Surgery Date(Month/Year) Artobifemoral Bypass Repair Graft Arthroscopy knee
== END 2024-09-27 14:10 | disposition home or self-care (01) ==
LOC: HO.ENCR 13:33
PROVIDERS: PCP Registered Nurse; Visit Provider Physician Assistant
DX: E11.65 Type 2 diabetes mellitus with hyperglycemia (principal); Z79.4 Long term (current) use of insulin; I10 Essential (primary) hypertension; E78.5 Hyperlipidemia, unspecified; Z13.9 Encounter for screening, unspecified

== ENCOUNTER → 2024-09-27 13:32 | Outpatient (BNVA) | payer MEDICARE, SELFPAY | PROVIDERS: PCP Registered Nurse; Visit Provider Physician Assistant | DX: E11.65 Type 2 diabetes mellitus with hyperglycemia (principal); I10 Essential (primary) hypertension; E78.5 Hyperlipidemia, unspecified; Z79.4 Long term (current) use of insulin; Z79.899 Other long term (current) drug therapy | CPT/HCPCS: 82947; 83036; 99212 ==

== ENCOUNTER 2024-12-27 12:50 | Outpatient (AMB) | payer MEDICARE, SELFPAY ==
[2024-12-27 12:52] VITALS: BP 132/74; PULSE 74; O2SAT 94; BMI 35.6
--- NOTE | 2024-12-27 12:52 | MHC.OFFVIS ---
Vital Signs 12/27/24 12:52 Height 5 ft 10 in Weight 248 lb 3.848 oz BMI 35.6 BP 132/74 Blood Pressure Location Lt brachial Position Sitting Pulse 74 Pulse Source Pulse Oximeter Pulse Oximetry (%) 94 Oxygen Delivery Method Room Air Intake Visit Reasons: dm Intake Note: Patient present today for Type 2 Diabetes Mellitus Last Diabetic eye exam: 08/2024 Last Podiatry Visit: Doesn't have one Random Glucose: 133 mg/dl HgA1C: 6.7% Cigar Binder Required: No Accompanied by: Self / Same As Patient Allergies adhesive tape Allergy (Mild, Verified 12/27/24 13:00) Redness of Skin Medication List - Last Reconciled 12/27/24 by Stephany Cody PA-C albuterol sulfate 90 mcg/actuation 2 puffs PO Q6H PRN ascorbic acid (vitamin C) (Vitamin C) 500 mg PO DAILY blood sugar diagnostic (TestObject Verio test strips) As directed blood-glucose meter (TestObject Verio Reflect Meter) As directed blood-glucose sensor (MENA PRESTIGE Tomer 3 Plus Sensor device) Use daily As directed to monitor glucose cholecalciferol (vitamin D3) (Vitamin D3) 125 mcg PO DAILY clopidogrel 75 mg PO DAILY Held on 12/25/21. Instructions: Resume on 12/28/21. restart in 3 days empagliflozin (Jardiance) 25 mg PO QAM ferrous sulfate 1 tab PO DAILY furosemide 40 mg PO DAILY insulin degludec (Tresiba FlexTouch U-200 insulin) 60 units (0.3 mL) subcut DAILY 30 days insulin syringe-needle U-100 (BD Insulin Syringe) As directed lactobacillus combination no.4 (Probiotic) 3,000 mmu cells PO DAILY lancets (Duable Chineseuch Delica Plus Lancet) As directed losartan 50 mg PO DAILY nitroglycerin mg sublingual omeprazole 40 mg PO BID pen needle, diabetic (Comfort EZ Pen Leonidas) use 1 needle 5 times day day for insulin injections rosuvastatin 20 mg PO BEDTIME tamsulosin 1 cap PO BEDTIME tirzepatide (Mounjaro) 15 mg (0.5 mL) subcut QWEEK HPI HPI dm: Details: Patient is a 74-year-old male with a significant past medical history of type 2 diabetes, hypertension, hyperlipidemia, peripheral vascular disease, chronic kidney disease, ischemic cardiomyopathy, CAD, and chronic anemia presenting today for a follow up regarding his diabetes. Endo: His A1c is 6.7 He is currently on Mounjaro 15 mg weekly, tresiba 70 units, novolog 24 units 3 times a day, and Jardiance 25 mg daily -stopped novolog due to low blood sugars and glucose not spiking during meals with increased mounjaro dosing Down 11 lbs since last visit -He states that the lantus is ineffective. He states it wears off regularly and seems inconsistent. He has tried toujeo in the past and states it was also ineffective and caused headaches. -He was on trulicity and ozempic in the past. He states they were ineffective. CGM- usage 97%, GMI 6.2 %. in range 96%, hyperglycemic 4%, very hyperglycemic 0%, 0 hypoglycemia -no hypoglycemic events. States that he has not had a low blood sugar in a long time and would correct this with orange juice. He has glucose tabs also. 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 He says that the neuropathy is actually a bit better since his blood sugars have been better controlled. CV: Blood pressure today in the office is 132/74. He is currently on furosemide 40 mg, losartan 50 mg. Cholesterol is controlled with Crestor 20 mg. Follows with cardiology, Dr. Quezada. s/p recent stents and feeling well. Vasc: Follows with vascular surgery at [facility] Nephro: does not follow with nephrology. [facility] Medical History (Updated 07/02/24 @ 14:25 by Stephany Cody PA-C) SOB (shortness of breath) Chest discomfort Cough Lower back pain Elevated troponin Obesity HCV (hepatitis C virus) Ischemic cardiomyopathy T2DM (type 2 diabetes mellitus) Spondylosis of lumbar spine History of non-ST elevation myocardial infarction (NSTEMI) NSTEMI (non-ST elevated myocardial infarction) Post-nasal drainage Type 2 diabetes mellitus with diabetic neuropathy Thyroid nodule Neuropathy Chronic anemia BPH (benign prostatic hyperplasia) Diabetic retinopathy PVD (peripheral vascular disease) Goiter Vitamin D deficiency HLD (hyperlipidemia) HTN (hypertension) Surgical History S/P placement of nerve stimulator H/O colonoscopy History of esophagogastroduodenoscopy (EGD) S/P aorto-bifemoral bypass surgery Hx of basal cell carcinoma excision Family History Father Diabetes Mother Diabetes Leukemia Skin cancer Alzheimers disease Dementia Social History Household Members: Spouse Housing: House Do you presently have visiting nurse or other home services: No Alcohol intake: never Patient Tobacco Use Status: Former Tobacco user Tobacco use type: Cigarette Cigarette Packs Per Day: 3 Years Smoked: 30 e-Cigarette/Vaping Use: Never Used Second Hand Smoke Exposure: No Advance Directives Date on File: 08/02/21 service: Yes Current occupational status: retired Physical Exam Vital Signs: Last Vital Signs Pulse 74 12/27/24 12:52 BP 132/74 12/27/24 12:52 Pulse Ox 94 12/27/24 12:52 Oxygen Delivery Method Room Air 12/27/24 12:52 BMI result Body Mass Index 35.6 Const Orientation/consciousness: patient oriented x3 HEENT Ears: hearing grossly normal bilaterally Neck Neck: Yes no lymphadenopathy Thyroid: Thyroid normal Carotids: no bruits Lymphatic: no lymphadenopathy noted Resp Auscultation: clear to auscultation bilaterally Cardio Rate: regular rate Rhythm: regular rhythm Heart sounds: S1 normal heart sound present and S2 normal heart sound present Peripheral pulses: dorsalis pedis present Skin General skin exam: no rashes or lesions noted Neuro General: patient oriented x3, gait normal and no focal motor deficits Extrem Other: Monofilament sensation intact bilaterally. Vibratory sensation intact bilaterally. Skin intact. General: Yes normal to inspection Results AMB Hemoglobin A1c AMB Hemoglobin A1c 6.7 % Last Edit by EVERARDO Nair on 12/27/24 13:17 Results Reviewed Results Reviewed: Laboratory Last Values Glucose (Clinic) 133 mg/dL (60-115) H 12/27/24 13:02 Laboratory Tests 02/23/24 05/31/24 07/02/24 12:43 11:26 14:02 Sodium 141 Potassium 4.9 Chloride 110 H Carbon Dioxide 24 Anion Gap 12 BUN 13 Creatinine 1.22 Estim Creat Clear Calc 67.2 Estimated GFR 58 Glucose (Clinic) 138 H Random Glucose 199 H Hgb A1c (Clinic) 7.8 H Calcium 9.2 Magnesium 1.9 Total Bilirubin 0.5 AST 22 ALT 25 Alkaline Phosphatase 54 09/27/24 09/27/24 13:47 13:50 Sodium Potassium Chloride Carbon Dioxide Anion Gap BUN Creatinine Estim Creat Clear Calc Estimated GFR Glucose (Clinic) 128 H Random Glucose Hgb A1c (Clinic) 7.3 H Calcium Magnesium Total Bilirubin AST ALT Alkaline Phosphatase Assessment & Plan Assessment & Plan (1) Uncontrolled type 2 diabetes mellitus with hyperglycemia, with long-term current use of insulin: Code(s): E11.65 - Type 2 diabetes mellitus with hyperglycemia; 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 Continue Jardiance 25 mg, Mounjaro 15 mg weekly (2) Type 2 diabetes mellitus with diabetic neuropathy: Code(s): E11.40 - Type 2 diabetes mellitus with diabetic neuropathy, unspecified Category: Medical Plan: As above (3) HLD (hyperlipidemia): Code(s): E78.5 - Hyperlipidemia, unspecified Category: Medical Qualifiers: Hyperlipidemia type: unspecified Qualified Code(s): E78.5 - Hyperlipidemia, unspecified Plan: Lipids and LFTs ordered (4) HTN (hypertension): Code(s): I10 - Essential (primary) hypertension Category: Medical Qualifiers: Hypertension type: unspecified Qualified Code(s): I10 - Essential (primary) hypertension Plan: WNL. Continue current regimen Orders: Orders AMB Hemoglobin A1c Today E11.65 - Type 2 diabetes mellitus with hyperglycemia, Z13.9 - Encounter for screening, unspecified, Z79.4 - detention (current) use of insulin Comprehensive Met. 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 Lipid 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 Microalbumin, Random (w Creat) Today E11.40 - Type 2 diabetes mellitus with diabetic neuropathy, unspecified, E11.65 - Type 2 diabetes mellitus with hyperglycemia, I10 - Essential (primary) hypertension, Z79.4 - detention (current) use of insulin Medications: Changed From insulin degludec (Tresiba FlexTouch U-200 insulin) 70 units (0.35 mL) subcut DAILY 30 days 18 mL 1RF To insulin degludec (Tresiba FlexTouch U-200 insulin) 60 units (0.3 mL) subcut DAILY 18 mL 1RF 30 days Refilled blood-glucose sensor (Salus Security DevicesStyle Tomer 3 Plus Sensor device) Use daily As directed to monitor glucose 6 ea 3RF E08.29 - Diabetes mellitus due to underlying condition with other diabetic kidney complication, R80.9 - Proteinuria, unspecified, 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.4 - 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
[2024-12-27 13:07] LABS: Glucose, Whole Blood 133 mg/dL (60-115)
--- OUTSIDE RECORDS SUMMARY | 2024-12-27 13:31 | XMS_ITS | Clinical Summary ---
Author Organization [facility] Facility Address [address] [address] Care Team Providers Care Head Chopper Name Role Phone Imani Alanis DNP Primary [...] Visual Foot Exam 06/10/2022 Influenza Vaccine (#1) 2025 04/17/2021, 2018 Hepatitis B Vaccine Aged Out 11/20/2009, 12/07/2008, 11/09/2008 No longer eligible based on patient's age to complete this topic Pneumococcal Vaccine: 50+ Years Completed 06/24/2017, 12/28/2014 Colorectal Cancer Screening: Colonoscopy Discontinued 12/25/2021 Insurance [facility] Care Teams Head Chopper Relationship Specialty Start Date End Date Imani Alanis DNP [address] [place] [id number] PCP - General Nurse Practitioner 06/05/22
--- OUTSIDE RECORDS SUMMARY | 2024-12-27 13:31 | XMS_ITS | Clinical Summary ---
Author Organization [facility] Address [address] [facility] [address] [place] [address] Care Team Providers Care Certified Shorthand Reporter Name Role Phone No Pcp, Per Patient Primary Care Provider Unavai lable Allergies No known active allergies Medications furosemide (Lasix) 40 mg tablet 1 (one) time each day at the same time. 1 Active pregabalin (Lyrica) 150 mg capsule Take 150 mg by mouth. 1 Active pregabalin (Lyrica) 75 mg capsule Take 75 mg by mouth in the morning. 2 Active omeprazole (PriLOSEC) [address] capsule Take 40 mg by mouth in the morning and at bedtime. 2 Active rosuvastatin (Crestor) 20 mg tablet Take 20 mg by mouth in the morning. 2 Active metoprolol succinate XL (Toprol-XL) 50 mg 24 hr tablet Take 50 mg by mouth in the morning. 2 Active Trulicity 0.75 mg/0.5 mL pen injector Inject 0.75 mg under the skin 1 (one) time per week. 2 Active ferrous sulfate 325 (65 Fe) MG EC tablet Take 1 tablet by mouth in the morning. 2 Active losartan (Cozaar) 25 mg tablet Take 25 mg by mouth in the morning. 2 Active tamsulosin (Flomax) 0.4 mg 24 hr capsule 1 (one) time each day at the same time. 2 Active Lactobacillus acidophilus (Probiotic) 10 billion cell capsule as directed Active clopidogrel (Plavix) 75 mg tablet 1 (one) time each day at the same time. 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 Given the extent and source of his prior infection with in situ graft I advised to continue cephalexin. He knows to monitor for signs or symptoms of recurring infection. Atherosclerosis of [place] of both lower extremities with intermittent claudication 01/18/2022 PAD (peripheral artery disease) 01/18/2022 Peripheral arterial disease 01/18/2022 Social History Tobacco Use Types Packs/Day Years Used Date Smoking Tobacco: Never Smokeless Tobacco: Never Alcohol Use Standard Drinks/Week Comments Never 0 (1 standard drink = 0.6 oz pur e alcohol) Sex and Gender Information Value Date Recorded Sex Assigned at Not on file Legal Sex Male 6:00 AM EST Gender Identity Not on file Sexual Orientation Not on file Last Filed Vital Signs Vital Sign Reading Time Taken Comments Blood Pressure 149/69 02/13/2022 3:12 PM EDT Pulse 60 02/13/2022 3:12 PM EDT Temperature 36.2 C (97.1 F) 02/13/2022 3:12 PM EDT Respiratory Rate 16 02/13/2022 3:12 PM EDT Oxygen Saturation 97% 02/13/2022 3:12 PM EDT Inhaled Oxygen Concentration - - Weight 118.4 kg (261 lb) 02/13/2022 3:12 PM EDT Height 177.8 cm (5' 10 ) 02/13/2022 3:12 PM EDT Body Mass Index 37.45 02/13/2022 3:12 PM EDT Plan of Treatment Health Maintenance Due Date Last Done Comments Lipid Panel 1948 Diabetes: Foot Exam 1958 Diabetes: Retinopathy Screening 1958 Hepatitis C Screening 1966 Diabetes: Urine Protein Screening 09/05/1967 Zoster Vaccines (2 of 3) 10/06/2013 08/11/2013 Medicare Annual Wellness (AWV) 08/31/2014 Diabetes: Hemoglobin A1C 02/04/2021 08/04/2020 COVID-19 Vaccine ( season) 2024 05/29/2021, 09/08/2020, 08/10/2020 Depression Screening 06/02/2024 Influenza Vaccine (#1) 2025 2, 04/17/2021, 03/07/2021, Additional history exists DTaP/Tdap/Td Vaccines (4 - Td or Tdap) 06/09/2028 06/09/2018, 04/06/2013, 05/29/2007 Hepatitis B Vaccines Completed 11/20/2009, 12/07/2008, 11/09/2008 Pneumococcal Vaccine: 50+ Years Completed 06/24/2017, 12/28/2014 HIB Vaccines Aged Out No longer eligi ble based on patient's age to complete this topic HPV Vaccines Aged Out No longer eligi ble based on patient's age to complete this topic Hepatitis A Vaccines Aged Out No long er eligible based on patient's age to complete this topic IPV Vaccines Aged Out No longer eligi ble based on patient's age to complete this topic Meningococcal B Vaccine Aged Out No l onger eligible based on patient's age to complete this topic Meningococcal Vaccine Aged Out No mandi erica eligible based on patient's age to complete this topic Rotavirus Vaccines Aged Out No longer eligible based on patient's age to complete this topic Insurance [employer] MEDICARE REPLACEMENT PPO Advance Directives Documents on File Type Date Recorded Patient 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
--- OUTSIDE RECORDS SUMMARY | 2024-12-27 13:31 | XMS_ITS | Data Portability ---
Author Organization [place] [facility], [employer] Address [address] [place] [address] Assessment Encounter Date Assessment Date Assessment LastModified [...] dyspnea. Ensure results are sent to the ticket writer and back tender fourdrinier for comprehensive care coordination. Prescription - Spiriva inhaler: Administered via capsule inhalation. Do not swallow the capsule. Follow instructions for use. Rinse mouth after use. Side effects may include dizziness or lightheadedness, though these are uncommon. Appointments - Follow-up appointment in 8 to 12 weeks, potentially via telehealth. Schedule with the commercial front load operator. Not available 09/01/2024 20:55:01 11/09/2024 11/09/2024 30 minutes spent on date of service on chart review, direct time spent with patient, and documentation of clinical encounter. Not available 11/09/2024 21:21:38 Plan of Treatment Reminders Order Date Submit Date Provider Last Modified By Organization Details Last Modified Time Details Appointments FOLLO W UP 20 2024 01:40P Orin Reid, DNP Not available Not available Not [...] 16:06:42 lipid panel , serum 2023 024 [facility] [address], [place], [address], 11/21/2023 11:46:08 CBC w/ auto diff 2023 024 P[facility]ER [facility] (Centralized Electronic Ordering - All Locations), Patient Can Go To The Location Of Their Choice, 01/14/2024 16:06:40 lyme disea se Ab, serum 2023 024 ATHENAFAX [facility] (Centralized Electronic Ordering - All Locations), Patient Can Go To The Location Of Their Choice, 12/25/2023 16:15:54 Referral pulmo nolog ist refer ral [address] Pulmonary Scheduling Dept, [address] [place] [address], [address], [address], 11/02/2024 10:03:18 Procedures None recor ded. Surgeries None recor ded. Imaging XR, chest , 2 view 2024 025 [facility] [place], [facility] [address], [place], [address], 09/14/2024 16:41:25 PFT, compl ete [address] (Pulmonary Lab), [address] [place], [address], 09/13/2024 09:53:38 Medication Orders Wixel a Inhub 250 mcg-5 0 mcg/d ose powde r for inhal ation 2024 025 [facility][id number], [address], [place], [id number], 11/09/2024 21:21:57 Spiri va with Handi Haler 18 mcg and inhal ation capsu les 2024 025 PARKER [facility] #[id number], [address], [place], [id number], 09/01/2024 20:54:56 trama dol 50 mg table t 2023 024 [facility] #[id number], [address], [place], [id number], 09/01/2024 13:50:58 Patient TargetsNo targets recorded. Patient InstructionsNo instructions recorded. Reason for Referral [employer] [address] Referral for D yspnea on exertion Referring [...] with diabe abner: <7.0 Not Available [facility] ([facility]) [address], [place], [address], 01/14/2024 16:06:43 11/13/19 24 05/19/2023 US, doppl er echoc ardio gram No observ ation record ed. cris Not Available 10/31 14:44:48 11/13/1907/30/2023 US, carot id arter y No observ ation record ed. [facility] Not Available 10/31 14:45:30 11/20/19 24 10/21/2023 imagi ng inter preta tion No observ ation record ed. [facility] [place] [address], [address], 11/25/2023 10:31:41 11/20/19 24 10/21/2023 MRI, cervi daria spine , w/o contr ast No observ ation record ed. [facility] [place] [address] [place] [address], [address], 11/22/2023 15:35:13 11/20/19 24 10/21/2023 MRI, cervi daria spine , w/o contr ast No observ ation record ed. [facility] [place] [address] [place] [address], [address], 11/22/2023 15:35:02 11/20/19 24 03/16/2019 MRI, sandor teodoro, w/o contr ast No observ ation record ed. [facility] [place] [address], [address], 11/22/2023 15:34:48 11/20/19 24 03/16/2019 MRI, analiul teodoro, w/o contr ast No observ ation record ed. [facility] [place] [address], [address], 11/21/2023 17:22:38 11/20/19 24 10/21/2023 MRI, sacru m + coccy x, w/o contr ast No observ ation record ed. [facility] [place] [address], [address], 11/22/2023 15:34:30 11/20/19 24 10/21/2023 MRI, sacru m + coccy x, w/o contr ast No observ ation record ed. [facility] [place] [address], [place], [address], 11/22/2023 15:34:16 11/20/19 24 10/21/2023 MRI, sacru m + coccy x, w/o contr ast No observ ation record ed. [facility] [place] [address], [place], [address], 11/22/2023 15:34:02 09/15/19 25 09/14/2024 XR, chest [...] delmi: There is no acute cardio pulmon jasvir diseas e. WSN: [id number] Orderi ng Physic yamil: Connie Reid Dictat ed By: Corrie White MD Dictalma ed Date/T yamini: 4:38 pm Review ed By: Corrie White MD Signed By: Corrie White MD Signed Date/T yamini: 4:38 pm Transc ribed By: YUE Transc ribed Date/T yamini: 4:37 pm Patien t Class: 5 [facility] (Outpt Imaging) [address] [place], [address], 09/14/2024 22:11:43 10/16/19 25 10/13/2024 PFT, compl ete No observ ation record ed. [facility] (Sleep Dept) [address] [place], [address], 11/01/2024 04:00:47 Result Notes Documentation Provider Name and Address Organization Details Recorded Time Xr, Chest, 2 View : Examination: Chest performed on 09/14/2024. History: Dyspnea on exertion. Findings: Frontal and lateral views of the chest are compared to a prior study dated 02/01/2023. The cardiac and mediastinal silhouettes are within normal limits. The lungs are clear. The osseous and soft tissue structures are unremarkable. Impression: There is no acute cardiopulmonary disease. WSN: [id number] Ordering Physician: Connie Reid Dictated By: Corrie Singer MD Dictated Date/Time: 09/14/24 4:38 pm Reviewed By: Corrie Singer MD Signed By: Corrie Singer MD Signed Date/Time: 09/14/24 4:38 pm Transcribed By: YUE Transcribed Date/Time: 09/14/24 4:37 pm Patient Class: 5 Connie Reid, TOLL LINE REPAIRER [address] [facility] [address], [place], [address], [place] [facility] 09/14/2024 19:45:40 Problems Name Problem SNOMED Code Status Onset Date Resolution Date Notes Provider Name and Address Organization Details Recorded Time Benign prostatic hyperplasia 166168509 Active 2023 Lashanda sr null, [place] [facility] 4 14:46:30 Impacted cerumen 75579998 Active 2023 Lashanda Montano orin null, [place] - [facility] 4 14:46:41 Chronic cough 51499580 Active 2023 Lashanda sr null, [place] [facility] 4 14:46:51 Type 2 diabetes mellitus 97482882 Active 2023 Lashanda Montano orin null, [place] - [facility] 4 14:46:57 Erectile dysfunction 862253452 Active 2023 Lashanda sr null, [place] [facility] 4 14:47:07 History of non-ST segment elevation myocardial infarction 297421985 Active 2023 Lashanda sr null, [place] [facility] 4 14:47:48 Acute non-ST segment elevation myocardial infarction 305324834 Active 2023 Lashanda sr null, [place] [facility] 4 14:54:26 Hyperlipide tracie 55759632 Active 2023 Lashanda sr [place] [facility] 4 14:54:33 Hypertensiv e disorder 70820133 Active 2023 Lashanda sr null, [place] [facility] 4 14:54:39 Hypogonadis m 20514414 Active 2023 Lashanda sr [place], [place] [facility] 4 14:54:46 Lesion of external ear 379105061 Active 2023 Lashanda sr [place] [facility] 4 14:55:01 Obese class I 5423568612549 07 Active 2023 Lashanda sr [place], [place] [facility] 4 14:55:08 Pain of right shoulder region Active 2023 Lashanda sr null, [place] [facility] 4 14:55:21 Peripheral nerve disease 528132705 Active 2023 Lashanda sr null, [place] [facility] 4 14:55:49 Posterior rhinorrhea 06284692 Active 2023 Lashanda sr [place] [facility] 4 14:56:02 Peripheral vascular disease 851386457 Active 2023 Lashanda sr null, [place] [facility] 4 14:56:12 Pain of right lower leg 5587006403756 08 Active 2023 Connie Reid NP [address] [facility] [address], [place], [address], [place] [facility] 4 11:36:39 Coronary arterioscle rosis 36786786 Active 2023 Connie Reid NP [address] [facility] [address], [place], [address], [place] [facility] 4 11:42:28 Spinal stenosis of lumbar region 35663333 Active 2023 Connie Reid NP [address] [facility] [address], [place], [place], [address], [place] [facility] 4 17:23:25 Dyspnea on exertion 33885438 Active 2024 Connie Reid, DEDRICK [address] [facility][Note 3], [facility] [address], [place], [address], [facility] - [facility] 14:05:44 Cough 88104519 Active 2024 Connie Reid, TOLL LINE REPAIRER [address] [facility][Note 3], [facility] [address], [place], [place], [address], [facility] - [facility] 5 14:08:18 Uncomplicat ed moderate persistent asthma 983606429 Active 2024 Connie Reid, DEDRICK [address] [facility][Note 3], [facility] [address], [place], [address], [facility] - [facility] 11:44:09 Dyspnea 825398943 Active 2024 Connie Reid NP [address] [facility][Note 3], [facility] [address], [place], [place], [address], [facility] - [facility] 21:20:05 Problem Notes None recorded. Procedures Surgical History Date Name Laterality Status Provider Name and Address Organization Details Recorded Time Knee arthroscopy/surge ry completed [facility] 11/13/2023 14:56:52 cataract surgery completed [facility] 11/13/2023 14:57:04 aortofemoral to popliteal vascular bypass completed [facility] 11/13/2023 14:57:25 Imaging Results None recorded. Procedure Notes None recorded. Medical Equipment None [...] TAKE 1 TABLET BY MOUTH EVERY DAY 2024 active Not Available Not Available Not Avai lable Adult Low Dose Aspirin 81 mg tablet,elizabeth [...] R 56 UNITS UNDER THE SKIN DAILY active Not Available Not Available No t Available Admelog SoloStar U-100 Insulin lispro 100 unit/mL subcutaneou s pen ADMINISTE R 24 UNITS UNDER THE SKIN THREE TIMES DAILY 09/01 completed Not Available Not Available Not Available Dexcom G6 Transmitter device USE DIRECTED 11/19 completed Not Available Not Available Not Available Wixela Inhub 250 mcg-50 mcg/dose powder for inhalation INHALE 1 PUFF BY MOUTH TWICE DAILY active Not Available Not Available No t Available Mounjaro 7.5 mg/0.5 mL subcutaneou s pen injector ADMINISTE R 7.5 MG UNDER THE SKIN EVERY WEEK 09/01 completed Not Available Not Available Not Available Mounjaro 5 mg/0.5 mL subcutaneou s pen injector ADMINISTE R 5 MG UNDER THE SKIN EVERY WEEK 09/01 completed Not Available Not Available Not Available Mounjaro 15 mg/0.5 mL subcutaneou s pen injector ADMINISTE R 15 MG UNDER THE SKIN EVERY WEEK active Not Available Not Available No t Available Mounjaro 10 mg/0.5 mL subcutaneou s [...] No t Available Vitals Date Recorded Body height Provider Name an d Address Organization Details Last Updated DateTime 09/01/2024 177.8 cm Lashanda [facility] 09/01/2024 13:44:13 Date Recorded Body mass index (BMI) Body weight Heart rate Oxygen saturation Oxygen saturation in Arterial blood by Pulse oximetry Systolic And Diastolic Provider Name and Address Organization Details Last Updated DateTime 5 37.8 kg/m2 064207. 19 g 64 /min 97 % 97 % 134/72 mm[Hg] Jessa davis [facility] 13:55:34 Date Recorded Body weight Body mass index (BMI) Body height Heart rate Oxygen saturation Oxygen saturation in Arterial blood by Pulse oximetry Systolic And Diastolic Provider Name and Address Organization Details Last Updated DateTime 4 448283. 95 g 34.9 kg/m2 177.8 cm 56 /min 96 % 96 % 140/82 mm[Hg] Damari Hernadez [place] [facility] 4 11:16:34 Social History Question Answer Notes LastModified by Organizat ion Details LastModified Time Tobacco Smoking Status Former Smoker Lashanda Burger null, [place] [facility] 11/13/2023 14:57:51 When Did You Quit Smoking? 16+yearssinc elastcigaret te [facility]. [facility] Information not available 11/13/2023 Sex: Unknown Functional Status None recorded. Mental Status None recorded. Family History Relationship Description Onset Age of this Age Resolved Age Notes LastModified by Organization Details LastModified Time Mother Dementia [facility] Not availa ble 11/13/2023 14:58:06 Mother Leukemia [facility] Not availa ble 11/13/2023 14:58:22 Father Diabetes mellitus [facility] Not available 10/31 14:58:13 Medical History No medical history recorded. Immunizations Vaccine Type Date Status Note Provider Nam e and Address Organization Details Recorded Time Influenza, high-dose, quadrivalent, PF 1 completed Connie Reid, TOLL LINE REPAIRER [address], [address], [facility] - [facility] 11/20/2023 11:40:34 Influenza, high-dose, quadrivalent, PF 2 completed Connie Reid, TOLL LINE REPAIRER [address], [address], [facility] - [facility] 11/20/2023 11:40:34 COVID-19, mRNA, LNP-S, PF, 30 mcg/0.3 mL dose 1 completed Connie Reid, TOLL LINE REPAIRER [address], [address], [facility] - [facility] 11/20/2023 11:40:34 COVID-19, mRNA, LNP-S, PF, 30 mcg/0.3 mL dose 1 completed Connie Reid, TOLL LINE REPAIRER [address], [address], [place] [facility] 11/20/2023 11:40:34 COVID-19, mRNA, LNP-S, PF, 30 mcg/0.3 mL dose 1 completed Connie Reid, TOLL LINE REPAIRER [address] [place] [address], [facility] [address], [place], [place], , [place] [facility] 11/20/2023 11:40:34 Tdap 7 completed Connie Reid, TOLL LINE REPAIRER [address] [place] [address] [address], [place], [place], , [place] [facility] 11/20/2023 11:40:34 Influenza, high-dose, trivalent, PF 9 completed Connie Reid, TOLL LINE REPAIRER [address] [place] [address], [facility] [address], [place], [place], , [place] [facility] 11/20/2023 11:40:34 Td (adult), 5 Lf tetanus toxoid, preservative free, adsorbed 3 completed Connie Reid, TOLL LINE REPAIRER [address] [place] [address] [address], [place], [place], , [place] [facility] 11/20/2023 11:40:34 Hep B, adult 9 completed Connie Reid, TOLL LINE REPAIRER [address] [place] [address] [address], [place], [place], , [place] [facility] 11/20/2023 11:40:34 Hep B, adult 0 completed Connie Reid, TOLL LINE REPAIRER [address] [place] [address], [place], , [place] [facility] 11/20/2023 11:40:34 Hep B, adult 9 completed Connie Reid, TOLL LINE REPAIRER [address] [place] [address], , [place] [facility] 11/20/2023 11:40:34 Past Encounters Encounter ID Performer Location Encounter Start Date Encounter Closed Date Diagnosis/Indication Diagnosis SNOMED-CT Code Diagnosis ICD10 Code Diagnosis Note [id number] Connie Reid NP Main Office [address] [place] [address],[address] [place] [address] 11/20/2023 10:49:55 11/20/2023 12:05:31 Patient new to provider [id number] 86644 Z76.89 Reviewed what medical history is available to me in [facility]. Will proceed as below. Pain of ri ght lower leg 8189366613 60565 M79.661 Follows with vascular surgery with some PAD. Agree with his prior TOLL LINE REPAIRER's thoughts that this could be lumbar radiculopa thy due to right leg weakness. He had an MRI done, will request results, and consider referral to neurosurge ry. Tramadol is helpful, masspat appropriat e. Requests lyme testing- I think this is less likely but reasonable to check considerin g [place]yme disease [place]. Type 2 rafaela betes mellitus 85216560 Z79.4 Follows with endocrinol ogy. He reports a1c 7-somethin g. Screening for malignant neoplasm of prostate 927064499 Z12.5 Agreeable to screen. Coronary arteriosclerosis 82487878 I25.10 Follows with cardiology + vascular regularly. [id number] Connie Reid, DEDRICK Main Office [address] [facility],[address] [place] [address] 09/01/2024 13:42:00 09/01/2024 14:21:13 Dyspnea on exertion 04281963 R06.09 Work up pending from cardiology , including echo.Check xray. No weight loss, hemoptysis to warrant CT. He quit smoking over 15 years ago.Check PFTs, refer to pulmonary. 3 PPD smoker, quit 15 years ago. Try spiriva, f/u in 8-12 weeks. Type 2 rafaela betes mellitus 89204654 Z79.4 Follows with endocrinol ogy. He reports a1c 7-somethin g. Recheck. Coronary arteriosclerosis 50927558 I25.10 Follows with cardiology + vascular regularly. [id number] Connie Reid NP Main Office [address] [facility],[address] [place] [address] 11/09/2024 18:55:33 11/09/2024 18:56:48 Uncomplicated moderate persistent asthma 561401934 J45.40 Reviewed PFT results, will start wixela in place of incruse. Rinse mouth after use. Dyspnea 207882347 R06.00 Reviewed cardiology notes. Xray normal.He quit smoking over 15 years ago. 3 ppd smoker quit 15 years ago.PFTs show asthma, switch to ICS/LABA. Pulmonary appt is pending.Wi ll have him increase furosemide to 60 mg daily and have nursing follow up this week to see if that improves dyspnea. Should check daily weights.I did review this with his cardiologi st via [employer] and he agrees with this plan. Health Concerns Section Related Observation LastModified by Organization Detai ls LastModified Time None Recorded Concern Status LastModified by Organization Details LastModified Time None Recorded Advance Directives Directive None Recorded Payers Insurance Date Sequence Insurance Name Policy Number Policy Phipps Covered Member ID Phipps Member ID Guarantor Name 12/02/2024 1 [place] (MEDICARE REPLACEMENT PPO) [id number] Caesar Flower [id number] Caesar Flower
== END 2024-12-27 14:25 | disposition home or self-care (01) ==
LOC: HO.ENCR 12:50
PROVIDERS: PCP Registered Nurse; Visit Provider Physician Assistant
DX: E11.65 Type 2 diabetes mellitus with hyperglycemia (principal); Z79.4 Long term (current) use of insulin; E11.40 Type 2 diabetes mellitus with diabetic neuropathy, unspecified; E78.5 Hyperlipidemia, unspecified; I10 Essential (primary) hypertension; Z13.9 Encounter for screening, unspecified

== ENCOUNTER → 2024-12-27 12:50 | Outpatient (BNVA) | payer MEDICARE, SELFPAY | PROVIDERS: PCP Registered Nurse; Visit Provider Physician Assistant | DX: E11.22 Type 2 diabetes mellitus with diabetic chronic kidney disease (principal); E11.51 Type 2 diabetes mellitus with diabetic peripheral angiopathy without gangrene; E11.65 Type 2 diabetes mellitus with hyperglycemia; E11.40 Type 2 diabetes mellitus with diabetic neuropathy, unspecified; E11.29 Type 2 diabetes mellitus with other diabetic kidney complication; I12.9 Hypertensive chronic kidney disease with stage 1 through stage 4 chronic kidney disease, or unspecified chronic kidney disease; N18.9 Chronic kidney disease, unspecified; E78.5 Hyperlipidemia, unspecified; I25.5 Ischemic cardiomyopathy; I25.10 Atherosclerotic heart disease of native coronary artery without angina pectoris; R80.9 Proteinuria, unspecified; Z79.4 Long term (current) use of insulin | CPT/HCPCS: 82947; 83036; 99212 ==

== ENCOUNTER 2025-03-28 12:50 | Outpatient (AMB) | payer MEDICARE, SELFPAY ==
--- NOTE | 2025-03-28 12:52 | A.OFFVIS_ITS ---
Vital Signs 03/28/25 12:53 Height 5 ft 10 in Weight 240 lb 15.444 oz BMI 34.6 BP 138/78 Blood Pressure Location Rt brachial Position Sitting Pulse 78 Pulse Source Pulse Oximeter Pulse Oximetry (%) 98 Oxygen Delivery Method Room Air Intake Visit Reasons: DM Intake Note: Patient present today for Type 2 Diabetes Mellitus Last Diabetic eye exam: Last exam was around 09/2023. 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 Accompanied by: Spouse Allergies adhesive tape Allergy (Mild, Verified 03/28/25 12:59) Redness of Skin Medication List - Last Reconciled 03/28/25 by Stephany Cody PA-C albuterol sulfate 90 mcg/actuation 2 puffs PO Q6H PRN ascorbic acid (vitamin C) (Vitamin C) 500 mg PO DAILY blood sugar diagnostic (Semafone Verio test strips) As directed blood-glucose meter (Semafone Verio Reflect Meter) As directed blood-glucose sensor (NovaTract Surgical Tomer 3 Plus Sensor device) Use daily As directed to monitor glucose cholecalciferol (vitamin D3) (Vitamin D3) 125 mcg PO DAILY clopidogrel 75 mg PO DAILY Held on 12/25/21. Instructions: Resume on 12/28/21. restart in 3 days empagliflozin (Jardiance) 25 mg PO QAM ferrous sulfate 1 tab PO DAILY furosemide 40 mg PO DAILY insulin degludec (Tresiba FlexTouch U-200 insulin) 60 units (0.3 mL) subcut DAILY 30 days insulin syringe-needle U-100 (BD Insulin Syringe) As directed lactobacillus combination no.4 (Probiotic) 3,000 mmu cells PO DAILY lancets (SnapUpuch Delica Plus Lancet) As directed losartan 50 mg PO DAILY nitroglycerin mg sublingual omeprazole 40 mg PO BID pen needle, diabetic (Comfort EZ Pen [place]) use 1 needle 5 times day day for insulin injections rosuvastatin 20 mg PO BEDTIME tamsulosin 1 cap PO BEDTIME tirzepatide (Mounjaro) 15 mg (0.5 mL) subcut QWEEK HPI HPI DM: Details: Patient is a 74-year-old male with a significant past medical history of type 2 diabetes, hypertension, hyperlipidemia, peripheral vascular disease, chronic kidney disease, ischemic cardiomyopathy, CAD, and chronic anemia presenting today for a follow up regarding his diabetes. Endo: His A1c is 6.7 He is currently on Mounjaro 15 mg weekly, tresiba 40 units, and Jardiance 25 mg daily -stopped novolog due to low blood sugars and glucose not spiking during meals with increased mounjaro -He states that the lantus is ineffective. He states it wears off regularly and seems inconsistent. He has tried toujeo in the past and states it was also ineffective and caused headaches. -He was on trulicity and ozempic in the past. He states they were ineffective. CGM- usage 91%, GMI 7%. in range 83%, hyperglycemic 17%, very hyperglycemic 0%, 0 hypoglycemia -no hypoglycemic events. States that he has not had a low blood sugar in a long time and would correct this with orange juice. He has glucose tabs also. 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 He says that the neuropathy is actually a bit better since his blood sugars have been better controlled. CV: Blood pressure today in the office is 138/78. He is currently on furosemide 40 mg, losartan 50 mg. Not on statin and does not want cholesterol medication. Follows with [facility] cardiology. s/p recent stents and feeling well. Vasc: Follows with vascular surgery at [facility] Nephro: does not follow with nephrology. [facility] Medical History (Updated 07/02/24 @ 14:25 by Stephany Cody PA-C) SOB (shortness of breath) Chest discomfort Cough Lower back pain Elevated troponin Obesity HCV (hepatitis C virus) Ischemic cardiomyopathy T2DM (type 2 diabetes mellitus) Spondylosis of lumbar spine History of non-ST elevation myocardial infarction (NSTEMI) NSTEMI (non-ST elevated myocardial infarction) Post-nasal drainage Type 2 diabetes mellitus with diabetic neuropathy Thyroid nodule Neuropathy Chronic anemia BPH (benign prostatic hyperplasia) Diabetic retinopathy PVD (peripheral vascular disease) Goiter Vitamin D deficiency HLD (hyperlipidemia) HTN (hypertension) Surgical History S/P placement of nerve stimulator H/O colonoscopy History of esophagogastroduodenoscopy (EGD) S/P aorto-bifemoral bypass surgery Hx of basal cell carcinoma excision Family History Father Diabetes Mother Diabetes Leukemia Skin cancer Alzheimers disease Dementia Social History Household Members: Spouse Housing: House Do you presently have visiting nurse or other home services: No Alcohol intake: never Patient Tobacco Use Status: Former Tobacco user Tobacco use type: Cigarette Cigarette Packs Per Day: 3 Years Smoked: 30 e-Cigarette/Vaping Use: Never Used Second Hand Smoke Exposure: No Advance Directives Date on File: 08/02/21 service: Yes Current occupational status: retired Physical Exam Vital Signs: Last Vital Signs Pulse 78 03/28/25 12:53 BP 138/78 03/28/25 12:53 Pulse Ox 98 03/28/25 12:53 Oxygen Delivery Method Room Air 03/28/25 12:53 BMI result Body Mass Index 34.6 Const Orientation/consciousness: patient oriented x3 HEENT Ears: hearing grossly normal bilaterally Neck Neck: Yes no lymphadenopathy Thyroid: Thyroid normal Carotids: no bruits Lymphatic: no lymphadenopathy noted Resp Auscultation: clear to auscultation bilaterally Cardio Rate: regular rate Rhythm: regular rhythm Heart sounds: S1 normal heart sound present and S2 normal heart sound present Peripheral pulses: dorsalis pedis present Skin General skin exam: no rashes or lesions noted Neuro General: patient oriented x3, gait normal and no focal motor deficits Extrem Other: Monofilament sensation intact bilaterally. Vibratory sensation intact bilaterally. Skin intact. General: Yes normal to inspection Results AMB Hemoglobin A1c AMB Hemoglobin A1c 7.1 % Last Edit by EVERARDO Nair on 03/28/25 13:10 Results Reviewed Results Reviewed: Laboratory Last Values Glucose (Clinic) 171 mg/dL (60-115) H 03/28/25 13:01 Laboratory Tests 02/28/20 12/27/24 12/27/24 11:19 13:02 13:04 Glucose (Clinic) 133 H Hgb A1c (Clinic) 6.7 H WILIAM Antibody <5 Assessment & Plan Assessment & Plan (1) Uncontrolled type 2 diabetes mellitus with hyperglycemia, with long-term current use of insulin: Code(s): E11.65 - Type 2 diabetes mellitus with hyperglycemia; Z79.4 - manager intermediate (current) use of insulin Category: Medical Plan: increase tresiba to 46 Discontinue NovoLog from med lists. Continue Jardiance 25 mg, Mounjaro 15 mg weekly (2) HLD (hyperlipidemia): Code(s): E78.5 - Hyperlipidemia, unspecified Category: Medical Qualifiers: Hyperlipidemia type: unspecified Qualified Code(s): E78.5 - Hyperlipidemia, unspecified Plan: does not want to treat this. understands risks and pcp aware (3) HTN (hypertension): Code(s): I10 - Essential (primary) hypertension Category: Medical Qualifiers: Hypertension type: unspecified Qualified Code(s): I10 - Essential (primary) hypertension Plan: WNL. Continue current regimen Orders: Orders AMB Hemoglobin A1c Today E11.40 - Type 2 diabetes mellitus with diabetic neuropathy, unspecified, Z13.9 - Encounter for screening, unspecified Medications: Changed From insulin degludec (Tresiba FlexTouch U-200 insulin) 60 units (0.3 mL) subcut DAILY 30 days 18 mL 1RF To insulin degludec (Tresiba FlexTouch U-200 insulin) 46 units (0.23 mL) subcut DAILY 9 mL 11RF 30 days Coding Level of Care Code Est Pt Level 4 (06370) Complex EM visit Add On G2211 Diagnoses Uncontrolled type 2 diabetes mellitus with hyperglycemia, with long-term current use of insulin E11.65; Z79.4 Hyperlipidemia, unspecified hyperlipidemia type E78.5 Hyperlipidemia type: unspecified Hypertension, unspecified type I10 Hypertension type: unspecified
[2025-03-28 12:53] VITALS: BP 138/78; PULSE 78; O2SAT 98; BMI 34.6
[2025-03-28 13:05] LABS: Glucose, Whole Blood 171 mg/dL (60-115)
--- OUTSIDE RECORDS SUMMARY | 2025-03-28 16:18 | XMS_ITS | Clinical Summary ---
Author Organization [facility] Facility Address [address] [address] Care Team Providers Care Bessemer Converter Blower Name Role Phone Imani Alanis DNP Primary [...] were inactivated after the 03/02/24 Regulatory Import Pain of shoulder region 01/02/2023 Screening for malignant neoplasm of colon [...] Colorectal Cancer Screening: Colonoscopy Discontinued 12/25/2021 Insurance [facility] Care Teams Bessemer Converter Blower Relationship Specialty Start Date End Date Imani Alanis DNP [address] [place] [address], [address] [id number] PCP - General Nurse Practitioner 06/05/22
--- OUTSIDE RECORDS SUMMARY | 2025-03-28 16:18 | XMS_ITS | Data Portability ---
Author Organization [place] [facility] [employer] Address [address] [place] [address] Assessment Encounter Date Assessment Date Assessment LastModified [...] dyspnea. Ensure results are sent to the players club representative and conservation agent for comprehensive care coordination. Prescription - Spiriva inhaler: Administered via capsule inhalation. Do not swallow the capsule. Follow instructions for use. Rinse mouth after use. Side effects may include dizziness or lightheadedness, though these are uncommon. Appointments - Follow-up appointment in 8 to 12 weeks, potentially via telehealth. Schedule with the front desk person. Not available 09/01/2024 20:55:01 11/09/2024 11/09/2024 30 minutes spent on date of service on chart review, direct time spent with patient, and documentation of clinical encounter. Not available 11/09/2024 21:21:38 03/09/2025 03/09/2025 35 minutes spent on date of service on chart review, direct time spent with patient, and documentation of clinical encounter. Not available 03/09/2025 13:50:28 Plan of Treatment Reminders Order Date Submit Date Provider Last Modified By Organization Details Last Modified Time Details Appointments FOLLO W UP 20 2025 02:00P Kelli Reid, DNP Not available Not available Not available Lab magne sium, serum or plasm a 2024 025 [facility] (Centralized Electronic Ordering - All Locations), Patient Can Go To The Location Of Their Choice, [id number] 03/09/2025 13:51:28 iron + TIBC + michelle tin, serum 2024 025 [facility] (Centralized Electronic Ordering - All Locations), Patient Can Go To The Location Of Their Choice, [address] 03/09/2025 13:51:11 CMP, serum or plasm a 2024 025 [facility] (Centralized Electronic Ordering - All Locations), Patient Can Go To The Location Of Their Choice, [address] 03/10/2025 16:06:42 HbA1c (hemo globi n A1c), blood 2024 025 [facility] (Centralized Electronic Ordering - All Locations), Patient Can Go To The Location Of Their Choice, [address] 03/09/2025 13:51:27 CBC 2024 025 [facility] (Centralized Electronic Ordering - All Locations), Patient Can Go To The Location Of Their Choice, [address] 03/10/2025 16:06:42 lipid panel , serum 2024 025 [facility], [address] [place] [address] [place], [address], 03/15/2025 06:47:18 HbA1c (hemo globi n A1c), blood 2024 [...] Go To The Location Of Their Choice, [address] 01/14/2024 16:06:42 lipid panel , serum 2023 024 [facility] ([facility]), [address], [place], [address], 11/21/2023 11:46:08 CBC w/ auto diff 2023 024 [facility] (Centralized Electronic Ordering - All Locations), Patient Can Go To The Location Of Their Choice, [address] 01/14/2024 16:06:40 lyme disea se Ab, serum 2023 024 [facility] (Centralized Electronic Ordering - All Locations), Patient Can Go To The Location Of Their Choice, [address] 12/25/2023 16:15:54 Referral pulmo nolog ist refer ral [address] Pulmonary Scheduling Dept, [address] [facility], [address], [address], 11/02/2024 10:03:18 Procedures None recor ded. Surgeries None recor ded. Imaging XR, chest , 2 view 2024 025 [facility] [place], [address], [place], [address], 09/14/2024 16:41:25 PFT, compl ete [address] (Pulmonary Lab), [address] [place], [address], 09/13/2024 09:53:38 Medication Orders Wixel a Inhub 250 mcg-5 0 mcg/d ose carito kaufman for inhal ation 2024 025 [facility], [address] [place], [place], [id number], 11/09/2024 21:21:57 Spiri va with Handi Haler 18 mcg and inhal ation capsu les 2024 025 PARKER [facility]321, [address], [place], [id number], 03/09/2025 09:34:51 trama dol 50 mg table t 2023 024 cris [facility] #35321, [address], [place], [id number], 09/01/2024 13:50:58 Patient TargetsNo targets recorded. Patient InstructionsNo instructions recorded. Reason for Referral [employer] Referral for D yspnea on exertion Referring [...] with diabe abner: <7.0 Not Available [facility] ([facility]) [address] [facility], [place], [address], 01/14/2024 16:06:43 11/13/19 24 05/19/2023 US, doppl er echoc ardio gram No observ ation record ed. [facility] Not Available 10/31 14:44:48 11/13/19 24 07/30/2023 US, carot id arter y No observ ation record ed. cris Not Available 10/31 14:45:30 11/20/19 24 10/21/2023 imagi ng inter preta tion No observ ation record ed. [email or web address] [facility] [address] [address], [place], [address], 11/25/2023 10:31:41 11/20/19 24 10/21/2023 MRI, cervi daria spine , w/o contr ast No observ ation record ed. [facility] [place] [address], [address], 11/22/2023 15:35:13 11/20/19 24 10/21/2023 MRI, cervi daria spine , w/o contr ast No observ ation record ed. [facility] [place] [address], [address], 11/22/2023 15:35:02 11/20/19 24 03/16/2019 MRI, shoul teodoro, w/o contr ast No observ ation record ed. [facility] [place] [address] [place] [address], [address], 11/22/2023 15:34:48 11/20/19 24 03/16/2019 MRI, sandor teodoro, w/o contr ast No observ ation record ed. [facility] [place] [address], [address], 11/21/2023 17:22:38 11/20/19 24 10/21/2023 MRI, sacru m + coccy x, w/o contr ast No observ ation record ed. [facility] [place] [address], [address], 11/22/2023 15:34:30 11/20/19 24 10/21/2023 MRI, sacru m + coccy x, w/o contr ast No observ ation record ed. [facility] [place] [address], [address], 11/22/2023 15:34:16 11/20/19 24 10/21/2023 MRI, sacru m + coccy x, w/o contr ast No observ ation record ed. [facility] [place] [address] [place], [address], 11/22/2023 15:34:02 09/15/19 25 09/14/2024 XR, chest [...] acute cardio pulmon jasvir diseas e. WSN: [id number] Orderi ng Physic yamil: Connie Reid Dictat ed By: Corrie White MD Dictat ed Date/T yamini: 4:38 pm Review ed By: Corrie White MD Signed By: Corrie White MD Signed Date/T yamini: 4:38 pm Transc ribed By: YUE Transc ribed Date/T yamini: 4:37 pm Patien t Class: 5 [facility] (Outpt Imaging) [address] [place] [address], [address], 09/14/2024 22:11:43 10/16/19 25 10/13/2024 PFT, compl ete No observ ation record ed. [facility] (Sleep Dept) [address] [place] [address], [address], 11/01/2024 04:00:47 Result Notes Documentation Provider Name [...] There is no acute cardiopulmonary disease. WSN: [id number] Ordering Physician: Connie Reid Dictated By: Corrie Singer MD Dictated Date/Time: 09/14/24 4:38 pm Reviewed By: Corrie Singer MD Signed By: Corrie Singer MD Signed Date/Time: 09/14/24 4:38 pm Transcribed By: YUE Transcribed Date/Time: 09/14/24 4:37 pm Patient Class: 5 Connie Reid, STEVEDORE DOCK [address] [facility], [facility] [address], [place], [address], [place] [facility] 09/14/2024 19:45:40 Problems Name Problem SNOMED Code Status Onset Date Resolution Date Notes Provider Name and Address Organization Details Recorded Time Benign prostatic hyperplasia 890555933 Active 2023 Lashanda Montano m null, [place] - [facility] 4 14:46:30 Impacted cerumen 13852132 Active 2023 Lashanda Montano m [place], [place] - [facility] 4 14:46:41 Chronic cough 78949800 Active 2023 Lashanda Mont[place], [place] [facility] 4 14:46:51 Type 2 diabetes mellitus 34939297 Active 2023 Lashanda Mont[place] m [place], [place] [facility] 4 14:46:57 Erectile dysfunction 715614595 Active 2023 Lashanda Mont[place], [place] - [facility] 4 14:47:07 History of non-ST segment elevation myocardial infarction 949801745 Active 2023 Lashanda Mont[place], [place] [facility] 4 14:47:48 Acute non-ST segment elevation myocardial infarction 206148261 Active 2023 Lashanda Mont[place], [place] [facility] 4 14:54:26 Hyperlipide tracie 91002360 Active 2023 Lashanda Mont[place] m [place], [place] [facility] 4 14:54:33 Hypertensiv e disorder 98055202 Active 2023 Lashanda Montano m [place], [place] [facility] 4 14:54:39 Hypogonadis m 23541871 Active 2023 Lashanda sr null, [place] [facility] 4 14:54:46 Lesion of external ear 140581996 Active 2023 Lashanda sr null, [place] [facility] 4 14:55:01 Obese class I 9571219312325 07 Active 2023 Lashanda sr null, [place] [facility] 4 14:55:08 Pain of right shoulder region Active 2023 Lashanda sr [place], [place] [facility] 4 14:55:21 Peripheral nerve disease 064268289 Active 2023 Lashanda sr null, [place] [facility] 4 14:55:49 Posterior rhinorrhea 70560957 Active 2023 Lashanda sr null, [place] [facility] 4 14:56:02 Peripheral vascular disease 246131398 Active 2023 Lashanda sr null, [place] [facility] 4 14:56:12 Pain of right lower leg 1774365102962 08 Active 2023 Connie Reid, DEDRICK 55 [facility], [facility] [address], [place], [place], [address], [place] - [facility] 4 11:36:39 Coronary arterioscle rosis 43388242 Active 2023 Connie Reid, DEDRICK 55 [facility], [facility] [address], [place], [place], [address], [place] [facility] 5 13:49:35 Spinal stenosis of lumbar region 93190165 Active 2023 Connie Reid, DEDRICK 55 [facility], [address], [place], [address], [place] [facility] 4 17:23:25 Dyspnea on exertion 45507569 Active 2024 Connie Reid, DEDRICK 55 [facility] [address], [place], [place], [address], [place] [facility] 5 14:05:44 Cough 27489303 Active 2024 Connie Reid NP 55 [facility] [address], [place], [place], [address], [place] [facility] 14:08:18 Uncomplicat ed moderate persistent asthma 348801500 Active 2024 Connie Reid, DEDRICK 55 [facility], [facility] [address], [place], [address], [facility] - [facility] 11:44:09 Dyspnea 964593531 Active 2024 Connie Reid NP 55 [facility] [address], [place], [place], [address], [place] [facility] 21:20:05 Cramp in lower limb 611406752 Active 2024 Connie Reid NP 55 [facility], [facility] [address], [place], [address], [facility] - [facility] 09:42:06 Contracture of joint of left hand 2433305305746 09 Active 2024 Connie Reid NP 55 [facility] [address], [place], [address], [facility] - [facility] 13:50:18 Problem Notes None recorded. Procedures Surgical History Date Name Laterality Status Provider Name and Address Organization Details Recorded Time Knee arthroscopy/surge ry completed [facility] 11/13/2023 14:56:52 cataract surgery completed [facility] 11/13/2023 14:57:04 aortofemoral to popliteal vascular bypass completed [facility] 11/13/2023 14:57:25 Imaging Results None recorded. Procedure [...] 1 tablet every day by oral route. 03/09 completed Not Available Not Available Not Available ezetimibe 10 mg tablet TAKE 1 TABLET BY MOUTH DAILY active Not Available Not Available No t Available Novolog FlexPen U-100 Insulin aspart 100 unit/mL (3 mL) subcutaneou s INJECT 24 UNITS SUBCUTANE OUS THREE TIMES DAILY 03/09 completed Not Available Not Available Not Available rosuvastati n 40 mg tablet TAKE 1 TABLET BY MOUTH DAILY 03/09 completed Not Available Not Available Not Available Spiriva with HandiHaler 18 mcg and inhalation capsules Inhale 1 capsule every day by inhalatio n route for 30 days. 03/09 completed Not Available Not Available Not Available FreeStyle Lite Meter kit USE DIRECTED [...] 50 UNITS UNDER THE SKIN AT BEDTIME 03/09 completed Not Available Not Available Not Available Jardiance 10 mg tablet TAKE 1 TABLET BY MOUTH EVERY DAY 09/01 completed Not Available Not Available Not Available Jardiance 25 mg tablet TAKE 1 TABLET BY MOUTH EVERY MORNING active Not Available Not Available No t Available Incruse Ellipta 62.5 mcg/actuati on powder for inhalation INHALE 1 PUFF BY MOUTH EVERY DAY 03/09 completed Not Available Not Available Not Available Tresiba FlexTouch U-200 insulin 200 unit/mL (3 mL) subcutaneou s pen ADMINISTE R 70 UNITS UNDER THE SKIN DAILY 03/09 completed Not Available Not Available Not Available Tresiba FlexTouch U-100 insulin 100 unit/mL (3 mL) subcutaneou s pen ADMINISTE R 40 UNITS UNDER THE SKIN DAILY active Not [...] 12.5 MG UNDER THE SKIN EVERY WEEK 03/09 completed Not Available Not Available Not Available Mounjaro 2.5 mg/0.5 mL subcutaneou s pen injector ADMINISTE R 2.5 MG UNDER THE SKIN EVERY WEEK FOR 4 WEEKS 11/19 completed Not Available Not Available Not Available FreeStyle Tomer 3 Plus Sensor device USE DAILY DIRECTED active Not Available Not Available No t Available Ultra-Fine Pen Needle 31 gauge x 5/16 USE ONE NEEDLE 5 TIMES A DAY FOR INSULIN INJECTION S active Not Available Not Available No t Available Vitals Date Recorded Body height Provider Name an d Address Organization Details Last Updated DateTime 09/01/2024 177.8 cm Lashanda [facility] 09/01/2024 13:44:13 Date Recorded Body mass index (BMI) Body weight Heart rate Oxygen saturation Oxygen saturation in Arterial blood by Pulse oximetry Systolic And Diastolic Provider Name and Address Organization Details Last Updated DateTime 37.8 kg/m2 479094. 19 g 64 /min 97 % 97 % 134/72 mm[Hg] Jessa davis [facility] 13:55:34 Date Recorded Body weight Body mass index (BMI) Body height Heart rate Oxygen saturation Oxygen saturation in Arterial blood by Pulse oximetry Systolic And Diastolic Provider Name and Address Organization Details Last Updated DateTime 4 317785. 95 g 34.9 kg/m2 177.8 cm 56 /min 96 % 96 % 140/82 mm[Hg] Damari Hernadez [facility] 4 11:16:34 Date Recorded Body height Body mass index (BMI) Body weight Heart rate Oxygen saturation Oxygen saturation in Arterial blood by Pulse oximetry Systolic And Diastolic Provider Name and Address Organization Details Last Updated DateTime 5 177.8 cm 34.6 kg/m2 221164. 76 g 63 /min 96 % 96 % 132/68 mm[Hg] Taylor Bronson [facility] 5 09:17:29 Social History Question Answer Notes LastModified by [employer] ion Details LastModified Time Tobacco Smoking Status [facility] 11/13/2023 14:57:51 When Did You Quit Smoking? 16+yearssinc [facility]aret [facility] Information not available 11/13/2023 Sex: Unknown Functional Status None recorded. Mental Status None recorded. Family History Relationship Description Onset Age of this Age Resolved Age Notes LastModified by Organization Details LastModified Time Mother Dementia [facility] Not availa ble 11/13/2023 14:58:06 Mother Leukemia [place] Not availa ble 11/13/2023 14:58:22 Father Diabetes mellitus [facility] Not available 10/31 14:58:13 Medical History No medical history recorded. Immunizations Vaccine Type Date Status Note Provider Nam e and Address Organization Details Recorded Time Influenza, high-dose, quadrivalent, PF 1 completed Connie Reid, STEVEDORE DOCK [address], [address], [facility] 11/20/2023 11:40:34 Influenza, high-dose, quadrivalent, PF 2 completed Connie Reid, STEVEDORE DOCK 55 [facility], [facility] [address], [place], [address], [facility] 11/20/2023 11:40:34 COVID-19, mRNA, LNP-S, PF, 30 mcg/0.3 mL dose 1 completed Connie Clubb, STEVEDORE DOCK 55 [facility], [facility] [address], [place], [address], [place] [facility] 11/20/2023 11:40:34 COVID-19, mRNA, LNP-S, PF, 30 mcg/0.3 mL dose 1 completed Connie Clubb, STEVEDORE DOCK 55 [facility] [address], [place], [address], [place] [facility] 11/20/2023 11:40:34 COVID-19, mRNA, LNP-S, PF, 30 mcg/0.3 mL dose 1 completed Connie Clubb, STEVEDORE DOCK [address] [address], [place], [address], [place] [facility] 11/20/2023 11:40:34 Tdap 7 completed Connie Clubb, STEVEDORE DOCK [address] [address], [place], [address], [place] [facility] 11/20/2023 11:40:34 Influenza, high-dose, trivalent, PF 9 completed Connie Clubb, STEVEDORE DOCK [address] [address], [place], [address], [place] [facility] 11/20/2023 11:40:34 Td (adult), 5 Lf tetanus toxoid, preservative free, adsorbed 3 completed Connie Edwinb, STEVEDORE DOCK [address] [address], [place], [address], [place] [facility] 11/20/2023 11:40:34 Hep B, adult 9 completed Connie Clubb, STEVEDORE DOCK [address] [address], [place], [address], [place] [facility] 11/20/2023 11:40:34 Hep B, adult 0 completed Connie Clubb, STEVEDORE DOCK [address], [address], [place] [facility] 11/20/2023 11:40:34 Hep B, adult 9 completed Connie Clubb, STEVEDORE DOCK [address] [address], [place], [place], , [place] [facility] 11/20/2023 11:40:34 Past Encounters Encounter ID Performer Location Encounter Start Date Encounter Closed Date Diagnosis/Indication Diagnosis SNOMED-CT Code Diagnosis ICD10 Code Diagnosis IMO Codes Diagnosis Note [id number] Connie Reid NP Main Office [address] [place] [address],[address] [place] [address] 11/20/2023 10:49:55 11/20/2023 12:05:31 Patient new to provider 9309803701 40064 Z76.89 Reviewed what medical history is available to me in [facility]. Will proceed as below. Pain of ri ght lower leg 4109950066 39278 M79.661 Follows with vascular surgery with some PAD. Agree with his prior STEVEDORE DOCK's thoughts that this could be lumbar radiculopa thy due to right leg weakness. He had an MRI done, will request results, and consider referral to neurosurge ry. Tramadol is helpful, masspat appropriat e. Requests lyme testing- I think this is less likely but reasonable to check considerin g lyme disease is endemic to the [facility]. Type 2 rafaela betes mellitus 24456427 Z79.4 Follows with endocrinol ogy. He reports a1c 7-somethin g. Screening for malignant neoplasm of prostate 831559886 Z12.5 Agreeable to screen. Coronary arteriosclerosis 63676119 I25.10 Follows with cardiology + vascular regularly. [id number] Connie Reid NP Main Office [address] [place], [place] [address] [place] [address] 09/01/2024 13:42:00 09/01/2024 14:21:13 Dyspnea on exertion 09382349 R06.09 Work up pending from cardiology , including echo.Check xray. No weight loss, hemoptysis to warrant CT. He quit smoking over 15 years ago.Check PFTs, refer to pulmonary. 3 PPD smoker, quit 15 years ago. Try spiriva, f/u in 8-12 weeks. Type 2 rafaela betes mellitus 95499992 Z79.4 Follows with endocrinol ogy. He reports a1c 7-somethin g. Recheck. Coronary arteriosclerosis 95014933 I25.10 Follows with cardiology + vascular regularly. [id number] Connie Reid NP Main Office [address] [place] [address],[address] [place] [address] 11/09/2024 18:55:33 11/09/2024 18:56:48 Uncomplicated moderate persistent asthma 787844190 J45.40 6664552 Reviewed PFT results, will start wixela in place of incruse. Rinse mouth after use. Dyspnea 475080744 R06.00 20693662 Reviewed cardiology notes. Xray normal.He quit smoking over 15 years ago. 3 ppd smoker quit 15 years ago.PFTs show asthma, switch to ICS/LABA. Pulmonary appt is pending.Wi ll have him increase furosemide to 60 mg daily and have nursing follow up this week to see if that improves dyspnea. Should check daily weights.I did review this with his cardiologi st via [employer] and he agrees with this plan. [id number] Connie Reid NP Main Office [address] [place] [address],[address] [place] [address] 03/09/2025 09:05:40 03/09/2025 10:02:20 Cramp in lower limb 374787230 R25.2 321314 Discussed usually idiopathic , will check labs as he is on loop diuretic.T ry calcium/ma gnesium q hs. See if he can identify triggers (i.e. dehydratio n). Encouraged push fluids. Coronary arteriosclerosis 81052864 I25.10 Follows with cardiology + vascular regularly. Type 2 rafaela betes mellitus 86221298 Z79.4 Follows with endocrinol jaziel. Check labs.He states he has stopped statin- check lipids. Uncomplica jeannine moderate persistent asthma 790557675 J45.40 4265827 Reviewed PFT results, he is feeling much better with wixela. Monitor. Contractur e of joint of left hand 3357555207 40975 M24.607 9364510 Mild, monitor for now. Could visit plastics for cortisone if he would like. At [facility] ed risk of polypharmacy 324099547 Z91.89 05259601 Reviewed medication s on his list- all seem appropriat e considerin g his co-morbidi ties. Health Concerns Section Related Observation LastModified by Organization Detai ls LastModified Time None Recorded Concern Status LastModified by Organization Details LastModified Time None Recorded Advance Directives Directive None Recorded Payers Insurance Date Sequence Insurance Name Policy Number Policy Phipps Covered Member ID Phipps Member ID Guarantor Name 03/06/2025 1 [place] (MEDICARE [place]PLACEMENT PPO) [id number] Caesar Flower [id number] Caesar Flower Notes Date Note Type Note Provider Name and Address Organization Details Recorded Time 11/20/2023 text/html ROS as noted in the HPI He is here as a new patient. [...] was sciatica.Follows with specialists: Dr. Rubio @ [facility] for DM2, cardiology, cardiac surgeons, Dr. Horne vascular surgery. Connie Reid NP [address] [facility], [facility] [address], [place], [address], [facility] - [facility] 11/21/2023 11:44:33 09/01/2024 text/html ROS as noted in the HPI - Caesar Flower, 73-year-old male.- Experiencing shortness of breath for several months, since before the last cardiac stents were placed (04/25)- Underwent a diagnostic cardiac catheterization in April, during which two stents were placed.- Shortness of breath noted during a visit to the conservation agent, leading to an ER visit at [facility].- Symptoms have not improved since the stent procedure; experiencing worsening with physical activity.- Recently returned from [facility], where he was severely winded walking [...] function tests noted. Connie Reid NP [address] [facility], [address], [place], [address], [place] [facility] 09/01/2024 20:55:15 11/09/2024 text/html This telephone visit was arranged as a video visit but he could not access the video portion. It was arranged as follow up for dyspnea.Interim: Had PFTs which showed asthma. Has pulmonary appt in march. Still very SOB with exertion. Pt states this has been going on since before his RCA revascularization in 04/25. He has seen cardiology twice this year. Had echo last month, showed EF 50-55% mild diastolic dysfunction and mild aortic stenosis which is new. No fever, chills, unintentional weight loss. Pt denies swelling. He states he is compliant with furosemide. Connie Reid NP [address] [facility], [address], [place], [address], [place] [facility] 11/09/2024 21:22:01 03/09/2025 text/html Here for routine f/u.Follows with cardiology (CAD), endocrinology (DM2), vascular (PVD).Feeling well. Has lost weight since last visit.Dyspnea improved: PFTs showed mild asthma, feeling better with wixela.Has leg cramps intermittently, no clear trigger, infrequent, wake him from sleep. Tried magnesium without clear benefit.Due for lab work.Has occasional cramp and contracture of left hand. Connie Reid NP [address] [facility], [address], [place], [address], [place] [facility] 03/09/2025 13:52:17
== END 2025-03-28 13:19 | disposition home or self-care (01) ==
LOC: HO.ENCR 12:51
PROVIDERS: Visit Provider Physician Assistant
DX: E11.65 Type 2 diabetes mellitus with hyperglycemia (principal); Z79.4 Long term (current) use of insulin; E78.5 Hyperlipidemia, unspecified; I10 Essential (primary) hypertension; Z13.9 Encounter for screening, unspecified; E11.40 Type 2 diabetes mellitus with diabetic neuropathy, unspecified

== ENCOUNTER → 2025-03-28 12:50 | Outpatient (BNVA) | payer MEDICARE, SELFPAY | PROVIDERS: Visit Provider Physician Assistant | DX: E11.65 Type 2 diabetes mellitus with hyperglycemia (principal); E11.319 Type 2 diabetes mellitus with unspecified diabetic retinopathy without macular edema; E11.40 Type 2 diabetes mellitus with diabetic neuropathy, unspecified; E11.21 Type 2 diabetes mellitus with diabetic nephropathy; E11.51 Type 2 diabetes mellitus with diabetic peripheral angiopathy without gangrene; E78.5 Hyperlipidemia, unspecified; I10 Essential (primary) hypertension; Z79.899 Other long term (current) drug therapy; Z79.4 Long term (current) use of insulin | CPT/HCPCS: 82947; 83036; 99212 ==